=== PATIENT | female | born 1950 | race Caucasian/White ===

== ENCOUNTER → 2017-10-31 08:10 | Outpatient (CLI) | payer MEDICARE, SELFPAY ==
[2017-10-31 08:18] LABS: Mucous, Urine 0 SEEN /hpf (<or=2+); Red Blood Cells-Urine 0 SEEN /hpf (0-5)
[2017-10-31 08:45] LABS: Absolute Lymphocyte Count 2.76 X10^3/ul (0.83-4.51); Absolute Neutrophil Count 3.6 X10^3/uL (2.0-7.7); Basophil% 1.3 % (0-1); Eosinophil# 0.49 X10^3/uL; Eosinophils% 6.5 % (0-5); Hematocrit 33.3 % (37-47); Hemoglobin 10.4 g/dl (12.0-15.0); Lymphocyte # 2.76 X10^3/ul (4.0); Lymphocyte % 36.8 % (19-41); Mean Corp Hgb Conc 31.2 g/gl (32-36); Mean Corpuscular Hgb 27.7 pg (27.0-32.0); Mean Corpuscular Volume 88.6 fL (81-99); Mean Platelet Vol. 10.1 fl (6.2-12.0); Monocyte% 6.7 % (0-10); Neutrophil # 3.64 X10^3/uL (2.7-7.7); Neutrophil % 48.4 % (47-70); POSITIVE COUNT NO; POSITIVE DIFFERENTIAL NO; POSITIVE MORPHOLOGY NO; Platelet Count 374 K/mm3 (150-450); RBC Distribution Width SD 54.9 fl (35.1-43.9); Red Blood Count 3.76 M/mm3 (4.2-5.4); White Blood Count 7.5 K/mm3 (4.4-11.0)
[2017-10-31 09:19] LABS: ALB/GLOB Ratio 0.7 RATIO (0.9-2.4); AST(SGOT) 30 U/L (15-37); Alanine Aminotransfer ALT/SGPT 29 U/L (13-56); Albumin, Serum 3.4 g/dL (3.2-5.0); Alkaline Phosphatase 88 U/L (45-117); Anion Gap 8 (5-15); BUN 15 mg/dL (7-18); BUN/Creat Ratio 15.6 RATIO (10-20); Calcium,Total 8.7 mg/dL (8.5-10.1); Chloride 106 mmol/L (98-107); Cholesterol 196 mg/dL (200); Creatinine, Serum 0.96 mg/dL (0.55-1.02); EST Glomerular Filtration Rate 61 mL/min (>60); Est Glom Filt Rate - Afr Amer 74 mL/min (>60); Globulin 4.6 g/dL (2.2-4.2); Glucose 101 mg/dL (74-106); High Density Lipoprotein 58 mg/dL; Potassium 4.1 mmol/L (3.5-5.1); Sodium Level 139 mmol/L (136-145); Thyroid Stim Hormone (TSH) 1.77 uIU/mL (0.358-3.74); Triglycerides 168 mg/dL; Very Low Density Lipoprotein 34 mg/dL (5-40)
[2017-10-31 11:44] LABS: Color, Urine Yellow (Yellow); Glucose, Dipstick Normal (Normal); Ketone-Dipstick Negative (Negative); Leukocyte Esterase-Dipstick 100 /ul (Negative); Nitrite-Dipstick Negative (Negative); Occult Blood-Urine Negative /ul (Negative); Protein-Dipstick Negative (Negative); Urine Bilirubin Dipstick Negative (Negative); Urine Clarity Sl. Cloudy (Clear); Urine Urobilinogen Normal (Normal)
[2017-10-31 11:53] LABS: Bacteria 1+ /hpf (None Seen); Squamous Epithelial Cells - UA 0-5 SEEN /hpf (5-10); White Blood Cells 10-25 SEEN /hpf (0-5)
[2017-10-31 12:07] LABS: Microalbumin,Random Urine 9.9 mg/L (NO RANGE EST.); Microalbumin:Creatinine Ratio 6.2 mg/g CRE (<30 mg/g CRE)
[2017-11-01 08:12] LABS: Vitamin D,25 Hydroxy 18.3 ng/mL (29.95-100.01)
== END ==
PROVIDERS: Family Provider Internal Medicine; PCP Internal Medicine; Visit Provider Internal Medicine
DX: I10 Essential (primary) hypertension (principal); E78.2 Mixed hyperlipidemia; E55.9 Vitamin D deficiency, unspecified
CPT/HCPCS: 36415; 80053; 80061; 81001; 82043; 82306; 82570; 84443; 85025

== ENCOUNTER → 2017-12-06 10:38 | Outpatient (CLI) | payer MEDICARE, SELFPAY | PROVIDERS: Family Provider Internal Medicine; PCP Internal Medicine; Visit Provider Obstetrics & Gynecology | DX: Z12.31 Encounter for screening mammogram for malignant neoplasm of breast (principal) | CPT/HCPCS: 77063; 77067 ==

== ENCOUNTER 2018-03-03 10:37 | Emergency (ER) | payer MEDICARE, SELFPAY ==
[2018-03-03 10:39] VITALS: BP 149/93; PULSE 88; RESP 16; TEMP 36.3; O2SAT 97; BMI 32.8
--- NOTE | 2018-03-03 10:48 | CT_ITS ---
STUDY: CT LUMBAR SPINE WITHOUT CONTRAST REASON FOR EXAM: Female, 67 years old. Low back pain and lower extremity pain. History of stage IV lung cancer. RADIATION DOSAGE (If Supplied By Facility): CTDIvol = ( 17.07 ) mGy, DLP = ( 606.85 ) mGycm TECHNIQUE: The patient was scanned in a multi detector CT scanner. High resolution transaxial imaging was performed. Images were obtained from L1 to S1 level. Sagittal and coronal images were reconstructed. Individualized dose optimization techniques were used for this CT. COMPARISON: None FINDINGS: Normal lumbar lordosis. There is no substantial scoliosis. Normal vertebrae of the lumbar spine. L1-2: Normal endplates. Normal disc height and morphology. Normal bilateral facet joints. Normal central canal and bilateral lateral recesses. Normal bilateral intervertebral neural foramina. L2-3: Normal endplates. Normal disc height and morphology. Normal bilateral facet joints. Normal central canal and bilateral lateral recesses. Normal bilateral intervertebral neural foramina. L3-4: Minimal degree of diffuse posterior disc bulge. Mild spondylosis. L4-5: Minimal anterior listhesis of L4 on L5. Facet joint osteoarthritis and hypertrophy. Mild degree of central spinal stenosis. L5-S1: Facet joint osteoarthritis and hypertrophy. Mild anterior spondylosis. Atherosclerotic calcification of the aorta. There is a 2.8 cm x 3.1 cm cyst in the left ovary. CT/Spine Lumbar without Contrast IMPRESSION: Multilevel degenerative changes, as described above. Mild degree of central spinal stenosis at the L4-L5 level due to the anterolisthesis and diffuse posterior disc bulge. Left ovarian cyst. Electronically Signed: Riccardo Vazquez MD at 12:35 EST Tel [phone], Service support ,
--- NOTE | 2018-03-03 13:12 | ED.VISSUMM ---
- ER Visit Summary Date of Service: 03/03/18 Chief Complaint: Back pain History of Present Illness: The patient is a 67 F presenting for evaluation secondary back pain. Patient states that over the course the last 5 days she has had an onset of lower back pain. She reports that it radiates down right leg. She denies any numbness or weakness. She denies any bowel or bladder incontinence. Patient does state that she has had a fever within the last week, but has not had any other infectious signs or symptoms recently. No recent injections or surgeries. Patient has a history of non-small cell lung cancer that currently is undergoing treatment, and her oncologist recommended that she come to emergency department for evaluation. Physical Examination: Vitals: Within normal limits General: Well-nourished well-developed no acute distress Head: Normocephalic atraumatic ENT: Moist mucous membranes Neck: Supple no JVD Cardiovascular: Heart regular rate and rhythm no murmurs Respiratory: Respirations nondistressed, lung sounds clear to auscultation bilaterally Abdominal: Soft, nontender, nondistended, normal bowel sounds, no evidence of abdominal masses or pulsatile mass Back: Normal to inspection, no midline tenderness to palpation, straight leg raise negative bilaterally Extremities: Nontender, nonedematous, 2+ radial and PT pulses bilaterally symmetric Skin: Normal color no rash Neuro: 5/5 strength hip flexion, knee flexion, knee extension, dorsiflexion, plantarflexion, EHL. Sensation intact over all dermatomes of the lower extremities bilaterally, 2+ patellar and Achilles reflexes bilaterally symmetric, negative clonus bilaterally Test Results: CT lumbar spine shows anterolisthesis at L4-L5 with disc bulging and some central canal stenosis Emergency Department Course and Treatment: Patient presented with back pain. She has a normal neurologic exam do not believe that MRI is indicated, but given her cancer history I do believe that CT is appropriate. CT shows no evidence of malignancy. Patient was given a dose of kenalog due to borderline diabetes. Patient currently has no red flag signs and symptoms. She will continue taking Tylenol for pain control and will follow up with primary care. Disposition: Discharge Impression: 1. Lumbar radiculopathy secondary to L4-L5 anterolisthesis with disc bulge This note was generated with [email or web address] dictation software. It may contain incorrect words, spelling, and punctuation that were not noted in review of the chart prior to signing ED Disposition - Plan for ED Patient: Disposition: Home or Assisted Living Chief Complaint: Back Diagnosis: Lumbar radicular pain Instructions: ED Sciatica Referrals: Katie Fernández DO [Primary Care Provider] - As Needed
[2018-03-03] MEDS: Triamcinolone Acetonide 40 MG/ML Vial IM (13:18)
== END 2018-03-03 13:27 | disposition home or self-care (01) ==
PROVIDERS: Emergency Provider Emergency Medicine; Family Provider Internal Medicine; PCP Internal Medicine
DX: M51.16 Intervertebral disc disorders with radiculopathy, lumbar region (principal); M43.16 Spondylolisthesis, lumbar region; C34.90 Malignant neoplasm of unspecified part of unspecified bronchus or lung; R73.09 Other abnormal glucose; Z79.84 Long term (current) use of oral hypoglycemic drugs; Z79.899 Other long term (current) drug therapy
CPT/HCPCS: 72131; 96372; 99282

== ENCOUNTER 2018-03-26 10:30 | Outpatient (RCR) | payer MEDICARE, SELFPAY ==
--- NOTE | 2018-03-11 17:32 | HP.PTEVAL ---
Patient's Visit Information LISETTE CRISOSTOMO is a 67 year old F referred to Physical Therapy by Concha Ford NP with a diagnosis of LBP, Sciatica. Date of Evaluation: 03/11/18 Physical Therapist: Iesha Starr - Visit Plan Frequency: 2x /Week Duration: 4-6 Weeks Plan: +++PT HAS ACTIVE LUNG AND THYROID CANCER++++. 2X/ week for 4 weeks- 6 weeks for trial of core stability and hip strength, postural exercises and possibly MT to R sided paraspinals. If land based therapy does not work, possible trail of AT - Subjective Findings: Pt reports that she does not know what she did. This started about 3 weeks ago. She went to hospital and did get a catcan that showed arthritis and bulging disc. Did get a cortizone shot and she has pain across LB ( no longer pain in B legs) and has pain in B shoulders. Pt has stage 4 small cell lung cancer. She has cancer in her thyroid as well. It is not cancer in her back. 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 They are watching the thyroid as well. She exercises several days a week. She goes to the [facility] and does chair yoga and strength and cardio. Has not been to either in a week and half. She did have a cough and not sure if she coughed too hard and hurt something. The cortizine shot took 2 days and for the most part she feels pretty good. Pt now complaining of pain since this morning of pain that radiates to the front of her ribs...she will call oncologist today about it. - Pain LBP Pain Intensity (Out of 10): 1 Pain Intensity Range: 4 Comment: since the cortizone - Objective Gait: walks with normal gait pattern with a little less trunk rotation. Trunk AROM: flex 50%, Ext 50% R SB 75 and L 50%. LE MMT: B hip flex 4/5, B hip abd 4/5, B hip extension 3-/5, B knee flex and knee ext 4/5. Palpation: very tight mid traps, extremely tender around R PSIS and surrounding musculature worse on the R compared to the L. Prone on elbows X2 min----no increase in pain ....more stretching. Press ups X8 no increase in back pain but weakness in arms prevents her from doing more - Goals Goal 1:: I HEP Goal Time Frame: 4-6 Weeks Goal 2:: Increase core and LE strength by 1/2 muscle grade (LE MMT: B hip flex 4/5, B hip abd 4/5, B hip extension 3-/5, B knee flex and knee ext 4/5) Goal Time Frame: 4-6 Weeks Goal 3:: Decrease back pain to 2/10 with ADL's - Rehabilitation Potential Rehabilitation Potential: Good - Anticipated Interventions Patient/Client Instruction: Educate patient on: Plan of Care For the Purpose of:: To decrease pain, To increase ROM, To improve nutrient delivery to tissue, To improve muscle performance and motor function, To improve ability to perform ADL's, To increase tolerance to activity/condition/position, To improve gait and locomotor functions, To improve health of tissue, To increase flexibility/ROM Therapeutic Exercise to Include: Strength training, Body mechanics, Postural training, Active ROM, Dynamic Lumbar Stabilization, Fernandez Exercises For the Purpose of:: To decrease pain, To increase ROM, To improve nutrient delivery to tissue, To improve muscle performance and motor function, To improve ability to perform ADL's, To increase tolerance to activity/condition/position Manual Therapy Techniques to Include: Soft tissue mobilization For the Purpose of:: To increase flexibility/ROM Thank you for the opportunity to evaluate your patient. For Medicare and Medicare HMO plans, please review the plan of care and approve it. It will need to be FAXED BACK to us at [phone] for Medicare purposes. For Medicare only, by signing this I certify the plan of care. Please let me know if there are questions or concerns regarding this plan of care. Physician Signature: Date:
--- NOTE | 2018-03-26 12:03 | HP.PTDCSUM ---
HP - PT D/C Summary It has been my pleasure to treat LISETTE CRISOSTOMO under orders from Concha Ford NP, for the diagnosis of LBP, Sciatica for a total of 5 visit(s). Discharge Date: 03/26/18 Please see the following information for a summary of their discharge status. - Subjective Subjective: Pt reports that she is cancer free at this point and sees Dr in 3 months. Pt - Pain LBP Pain Intensity (Out of 10): 0 - Overall Improvement % Improvement: 95 - Objective Objective/Function: Pt still complains of hip burning with clam shells... but a good burn. LE MMT: B hip flex 4/5, B hip abd 4/5, B hip extension 3+/5, B knee flex and knee ext 4/5 - Goals Goal 1:: I HEP Goal Progress: Goal Met Goal 2:: Increase core and LE strength by 1/2 muscle grade (LE MMT: B hip flex 4/5, B hip abd 4/5, B hip extension 3-/5, B knee flex and knee ext 4/5) Goal Progress: Progressing Goal 3:: Decrease back pain to 2/10 with ADL's Goal Progress: Goal Met - Plan Plan: DC PT to HEP - D/C Information Discharge Comments: DC PT to HEP If there are questions or concerns regarding this patient's physical therapy, please feel free to call me at [phone]. Thank you for the referral of this patient. Sincerely, Iesha Starr
--- OUTSIDE RECORDS SUMMARY | 2018-05-07 02:04 | XMS RPT_ITS | Continuity of Care Document ---
:1950 Author Organization [facility] Address [facility]7 [facility] [address] [place] [address] Phone Care Team Providers Name Role Phone Katie Fernández DO Unavailable Lars Santos Unavailable Divine SALVADOR, George Boyd Unavailable Dr. Tanner Jamil Unavailable Marina Weaver Unavailable Unavailable Long EBAY RESELLER, Isabella L Unavailable Unavailable Ciesa STORE PROTECTION SPECIALIST, Jillian Unavailable Unavailable Unavailable Problems Name Dates Details Abnormal CAT scan (R93.89, 793.99) Status: Active Adenocarcinoma of lung (C34.90, 162.9) Status: Active Allergic eosinophilia (D72.1, 288.3) Comments: counts stable Status: Active Allergic rhinitis (J30.9, 477.9) Status: Active Anemia, unspecified (Renamed from Anemia) (D64.9, 285.9) Comments: she never did lab w/u ordered in 03/01 so will do today--- see grad decline from 2017-- 11.9-- 11.0-- now 10.3consults in chart with light chain abn with heme in past -- with anemia progressijng needs r e-eval adn with worsein anemia needs scope in general-- pt refusing scope at this time so will do cologard and see heme Status: Active Arthralgia (M25.50, 719.40) Status: Active Benign essential hypertension (I10, 401.1) Status: Active BMI 34.0-34.9,adult (Z68.34, V85.34) Status: Active Body mass index 27.0-27.9, adult (Z68.27, V85.23) Status: Active breast bx- benign Status: Active Cholecystectomy (Gall Bladder Removal) Status: Active Colon Polyps, History of (V12.72) Comments: scope- 04/20- negative Status: Active Controlled diabetes mellitus type II without complication (E11.9, 250.00) Comments: HBA1c 5.6(05/01)HBA1c 5.8( (12/29)eye exam: [facility], 01/27.FBS: does not check at home, usualy in 120Eye exam : 01/28, [facility] Status: Active Cough (R05, 786.2) Comments: ? cold turn bronchitis, has lung cancer and Copd adding Z pack, delsym, and to use inhalerCold beginning november, no antibiotic. Lingering cough, occasional yellow, better now.No temeprtaure, sinus aches, earaches, runny nsoe Status: Active Deliveries (Parity) Comments: 2 Status: Active Eczema, allergic (L23.9, 692.9) Status: Active Elevated serum globulin level (R77.1, 790.99) Comments: keep appt with dr Mercedes in september for fu Status: Active Encounter for annual general medical examination with abnormal findings in adult (Z00.01, V70.0) Status: Active Encounter for screening for malignant neoplasm of colon (Renamed from Special screening for malignant neoplasms, colon) (Z12.11, V76.51) Status: Active Encounter for screening for malignant neoplasm of colon (Renamed from Special screening for malignant neoplasms, colon) (Z12.11, V76.51) Comments: last scope 01/28 - ordered cologard 06/29 Status: Active Encounter for screening for malignant neoplasm of rectum (Z12.12, V76.41) Status: Active Encounter for screening mammogram for breast cancer (Renamed from Encounter for screening mammogram for malignant neoplasm of breast) (Z12.31, V76.12) Comments: dr Hilario orders adn rev-- not due till november 2016 Status: Active Gastroesophageal reflux disease without esophagitis (K21.9, 530.81) Comments: working on weaning off - her desire so will do qod to start Status: Active Gout, arthritis (M10.9, 274.00) Comments: clinically stable Status: Active Grieving (F43.21, 309.0) Comments: going to look into grieving support counseling- pt declined meds discussed Status: Active H/O bone density study (Z92.89, V15.89) Comments: Osteopenia per pt, Dr yanelis devries, last BD 2013??Needs orders done for front staff. 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 unknown primary site (C79.89, 198.89) Comments: from lung Status: Active Mixed hyperlipidemia (E78.2, 272.2) Comments: takes simvastatin qod - if takes qd gets muscle aches Status: Active mole Comments: very typical area-- follow for changes which we discussed Status: Active Monoclonal gammopathy (D47.2, 273.1) Status: Active Neck pain, acute (M54.2, 723.1) Status: Active Need for Tdap vaccination (Renamed from Need for gcplekmkzr-perfovo-hcaawgufk (Tdap) vaccine, adult/adolescent) (Z23, V06.1) Status: Active Non-smoker (Z78.9, V49.89) Status: Active Nonsquamous nonsmall cell neoplasm of lung, 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, 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) Comments: ccf being treated with gene therapy - found the [email or web address] cat scan neck/chest/abdomen q3mo and brain scan once yr Status: Active Nutritional counseling (Z71.3, V65.3) Status: Active Polyp, colonic (K63.5, 211.3) Comments: Hyperplastic polyp, 01/27, [facility], repeat 02/01(5 years) Status: Active Postmenopausal (Renamed from Postmenopausal status) (Z78.0, V49.81) Comments: dr hilario orders and rev Status: Active POSTMENOPAUSAL STATE Status: Active Post-nasal drainage (R09.82, 473.9) Status: Active Pregnancies () Comments: 2 Status: Active screen Status: Active sinus tachycardia Status: Active Small cell carcinoma (C80.1, 199.1) Comments: on Arencia Status: Active Smoker (F17.200, 305.1) Comments: [facility] quit 3 yrs agoWorried about gaining weight Status: Active Sore throat (J02.9, 462) Status: Active Tonsillectomy Status: Active Unspecified Diagnosis Status: Active Varicose veins of legs (I83.93, 454.9) Status: Active Vitamin D deficiency (E55.9, 268.9) Comments: with K2 -- 5k daily Status: Active Vitamin D deficiency (E55.9, 268.9) Status: Active Medications Name Dates Details Alecensa 150 MG Oral Capsule 2 (two) Capsule Capsule bid for 0 days Quantity: 60 {Capsule} Refills: 0 Ordered:12-Dec-2017 Marina Weaver Start : 06-Nov-2017 Active Comments:from cancer doctor lifetime [place] Allergy 180 MG Oral Tablet daily (180 MG) Active Glucophage XR 500 MG Oral Tablet Extended Release 24 Hour 3 (three) Tablet ER 24HR qd for 90 days Quantity: 270 {Tablet} Refills: 3 Ordered:31-May-2017 Eileen Fernández DO, DO, Kathleen Start : 31-May-2017 Active Comments:generic Metoprolol Succinate ER 25 MG Oral Tablet Extended Release 24 Hour 1 (one) Tablet qd for 90 days Quantity: 90 {Tablet} Refills: 3 Ordered:26-Dec-2017 Eileen Fernández DO, DO, Kathleen Start : 26-Dec-2017 Active ONETOUCH ULTRA (Device) test strips Device bid for 30 days Quantity: 100 {Device} Refills: 3 Ordered:14-Dec-2014 Jewell Coffman DO Start : 14-Dec-2014 Active OneTouch Ultra Blue In Vitro Strip 1 (one) Strip Strip qd for 30 days Quantity: 50 {Strip} Refills: 11 Ordered:27-Dec-2015 Kayla Castro Start : 27-Dec-2015 Active Simvastatin 10 MG Oral Tablet 1 (one) Tablet qhs for 90 days Quantity: 90 {Tablet} Refills: 3 Ordered:23-Dec-2017 Jolene VANCE Katie Arellano DO Start : 23-Dec-2017 Active Zithromax Z-Cj 250 MG Oral Tablet 1 (one) Tablet TAD for 0 days Quantity: 1 {Package} Refills: 0 Ordered:28-Feb-2018 Concha Ford CNP Start : 28-Feb-2018 Active Amoxicillin-Pot Clavulanate 875-125 MG Oral Tablet 1 (one) Tablet bid for 0 days Quantity: 14 {Tablet} Refills: 0 Ordered:20-Aug-2016 Rosalie Yu LPN Start : 08-Aug-2016 End : 20-Aug-2016 Inactive FLEXERIL, 10MG (Oral Tablet) 1 (one) Tablet qhs prn for 0 days Quantity: 30 {Tablet} Refills: 0 Ordered:17-Aug-2009 America Molina Start : 12-May-2009 Inactive Hydrocortisone Valerate 0.2 % External Cream 1 (one) Cream Cream apply qd for 0 days Quantity: 30 {Gram} Refills: 3 Ordered:17-Feb-2018 Isabella Ochoa LPN Start : 06-Nov-2017 End : 17-Feb-2018 Inactive NIASPAN, 500MG (Oral Tablet Extended Release) 1 (one) Tablet ER qd for 0 days Quantity: 30 {Tablet_ER} Refills: 3 Ordered:17-Aug-2009 America Molina Start : 17-Mar-2008 Inactive Nystatin 636515 UNIT/ML Mouth/Throat Suspension 5 cc cc 5times a day swish and swallow for 0 days Quantity: 250 {Milliliter} Refills: 0 Ordered:14-Mar-2017 Rosalie Yu LPN Start : 20-Aug-2016 End : 14-Mar-2017 Inactive PREDNISOLONE, 15MG/5ML (Oral Syrup) Syrup for 0 days Refills: 0 Ordered:17-Aug-2009 America Molina Start : 10-May-2008 Inactive Comments:7.5 ml qd for 10days with food PRILOSEC OTC, 20MG (Oral Tablet Delayed Release) 1 tab qd for 0 days Refills: 0 Ordered:17-Aug-2009 Manasa Molina TYLENOL PM EXTRA STRENGTH, 500-25MG (Oral Tablet) 1/2 tab q hs for 0 days Refills: 0 Ordered:17-Aug-2009 Manasa Molina Vitamin D3 43214 UNIT Oral Capsule 1 (one) Capsule once a week for 60 days Quantity: 8 {Capsule} Refills: 0 Ordered:19-Apr-2016 Олег Santos MD Start : 19-Apr-2016 End : 18-Jun-2016 Inactive Vitamin K2-Vitamin D3 45-2000 MCG-UNIT Oral Capsule daily (45-2000 MCG-UNIT) Inactive ZOSTAVAX, 02228TBP/0.65ML (Subcutaneous Solution Reconstituted) 1 (one) For Solution one time dose for 0 days Quantity: 1 {For_Solution} Refills: 0 Ordered:22-Oct-2012 America Molina Start : 16-Jan-2012 End : 22-Oct-2012 Inactive Comments:Bring to doctors office immediately to receive injection unless you receive it at the pharmacy. ASPIRIN BUF(DITVH-MHGVM-TJMWF), 81MG (Oral Tablet Delayed Release) 1 (one) Tablet DR Daily for 0 days Refills: 0 Ordered:03-Jul-2006 America Molina Start : 03-Jul-2006 End : 20-Aug-2007 Discontinued ATENOLOL, 25MG (Oral Tablet) 1 (one) Tablet q am for 0 days Quantity: 30 {Tablet} Refills: 3 Ordered:20-Aug-2007 Jewell Coffman DO Start : 20-Aug-2007 End : 20-Aug-2007 Discontinued Bystolic 5 MG Oral Tablet 1 (one) Tablet qd for 0 days Quantity: 90 {Tablet} Refills: 3 Ordered:12-Dec-2017 Marina Weaver Start : 14-Mar-2017 End : 12-Dec-2017 Discontinued CALCIUM + D, 568-083EP-CMQK (Oral Tablet) 1 tab qd for 0 days Refills: 0 Ordered:12-Dec-2017 Marina Weaver End : 12-Dec-2017 Discontinued Comments:This order discontinued per [employer]. CELEBREX, 100MG (Oral Capsule) 1 (one) Capsule Capsule bid for 0 days Quantity: 60 {Capsule} Refills: 0 Ordered:09-Sep-2015 America Molina Start : 06-Jul-2013 End : 09-Sep-2015 Discontinued Comments:take with food COLCRYS, 0.6MG (Oral Tablet) 1 Tablet 2 tablets then repeat in 1 hour 1 tablet. for 0 days Quantity: 6 {Tablet} Refills: 0 Ordered:25-Mar-2013 Augustus VANCEBaomichoacano Ríos Start : 25-Mar-2013 End : 25-Mar-2013 Discontinued LEVAQUIN, 500MG (Oral Tablet) 1 (one) Tablet Daily for 0 days Quantity: 14 {Tablet} Refills: 0 Ordered:13-Feb-2006 Oral Serenity Start : 13-Feb-2006 End : 26-Mar-2006 Discontinued Omeprazole 20 MG Oral Capsule Delayed Release 1 (one) Capsule DR qd for 90 days Quantity: 90 {Capsule} Refills: 3 Ordered:12-Dec-2017 Marina Weaver Start : 04-Mar-2017 End : 12-Dec-2017 Discontinued PROTONIX, 40MG (Oral Tablet Delayed Release) [address] BID for 0 days Refills: 0 Ordered:15-Dec-2007 Augustus VANCEJewell Start : 20-Aug-2007 End : 12-Dec-2007 Discontinued Comments:increase to BID until seen again. SIMVASTATIN, 40MG (Oral Tablet) 1 (one) Tablet qhs for 0 days Quantity: 30 {Tablet} Refills: 3 Ordered:16-Jan-2012 Augustus VANCEBaoa Michoacano Start : 16-Jan-2012 End : 16-Jan-2012 Discontinued TiZANidine HCl 4 MG Oral Tablet 1 (one) Tablet qhs prn for 0 days Quantity: 30 {Tablet} Refills: 0 Ordered:12-Dec-2017 Marina Weaver Start : 08-Nov-2017 End : 12-Dec-2017 Discontinued TOPICORT, 0.25% (External Cream) 1 Cream bid for 0 days Quantity: 60 {Cream} Refills: 1 Ordered:25-Mar-2013 Augustus VNACEJewell Start : 25-Mar-2013 End : 25-Mar-2013 Discontinued TRICOR, 54MG (Oral Tablet) 1 (one) Tablet qd for 0 days Quantity: 30 {Tablet} Refills: 3 Ordered:20-Aug-2007 America Molina Start : 20-Aug-2007 End : 12-Dec-2007 Discontinued TRILIPIX, 135MG (Oral Capsule Delayed Release) 1 (one) Capsule DR daily for 0 days Quantity: 30 {Capsule} Refills: 3 Ordered:09-Sep-2015 NeetuAmerica harrington Start : 06-Oct-2013 End : 09-Sep-2015 Discontinued Comments:generic, generic, generic Zoloft 50 MG Oral Tablet 1 (one) Tablet daily for 30 days Quantity: 30 {Tablet} Refills: 3 Ordered:12-Dec-2017 OwenMarina Start : 30-Aug-2017 End : 12-Dec-2017 Discontinued Comments:FOREST Allergies and Adverse Reactions Name Dates Details Codeine/Codeine Derivatives (Allergy) Status: Active Comments: HIPER TRICOR, 54MG (Oral Tablet) (Allergy) Status: Active Comments: myalgias Trilipix *ANTIHYPERLIPIDEMICS* (Allergy) Status: Active Comments: muscle and joint pain, numbness in hands Past Medical History Name Dates Details Abdominal pain, unspecified abdominal location (789.00) Status: Resolved as of 17-Mar-2008 Abnormal finding of blood chemistry, unspecified (R79.9, 790.6) Comments: went to [facility] and got achey and elevated liver function Status: Inactive as of 08-Aug-2016 Abnormal glucose tolerance test (R73.02, 790.22) Status: Inactive as of 12-May-2009 BMI 28.0-28.9,adult (Z68.28, V85.24) Status: Inactive as of 04-Sep-2016 BMI 29.0-29.9,adult (Z68.29, V85.25) Status: Inactive as of 04-Sep-2016 BMI 31.0-31.9,adult (Z68.31, V85.31) Status: Inactive as of 17-Feb-2018 BMI 33.0-33.9,adult (Z68.33, V85.33) Status: Inactive as of 17-Feb-2018 Chest pain (R07.9, 786.59) Status: Resolved as of 23-Sep-2008 contact dermatitis Status: Resolved as of 22-Sep-2008 Cramp of both lower extremities (R25.2, 729.82) Comments: stretching , hydrate and lytes rev an dok -- if need can add mag later -- also wear support stockigns Status: Resolved as of 14-Mar-2017 Dermatitis (L30.9, 692.9) Status: Resolved as of 04-Apr-2011 Elevated blood-pressure reading without diagnosis of hypertension (R03.0, 796.2) Status: Inactive as of 28-Dec-2009 Encounter for immunization (Z23, V03.89) Status: Inactive as of 07-Dec-2013 Epigastric pain (R10.13, 789.06) Status: Inactive as of 12-May-2009 Foot pain (M79.673, 729.5) Comments: think gout and talk about what is. no on meds to cuase. no steriod with Dm will try colchicine then horace check uric acid Status: Inactive as of 19-Apr-2016 Gout (M10.9, 274.9) Comments: she wants to hold on daily prevention- we discussed diet and fluid changes and risk associated withnot treating Status: Inactive as of 19-Jul-2016 Headache (R51, 784.0) Comments: mild and she hasnt paid attn to much- she should docuent time and relations and call in so we can delineate what more testing to do Status: Resolved as of 17-Aug-2009 Hypoglycemia (E16.2, 251.2) Status: Inactive as of 19-Apr-2016 Left hip pain (M25.552, 719.45) Comments: better with pt Status: Inactive as of 19-Jul-2016 Low back pain (M54.5, 724.2) Status: Inactive as of 19-Jul-2016 Need for prophylactic vaccination and inoculation against influenza (Z23, V04.81) Status: Inactive as of 07-Dec-2013 OTHER SYMPTOMS INVOLVING ABDOMEN AND PELVIS, ABDOMINAL PAIN, RIGHT LOWER QUADRANT (789.03) Status: Resolved as of 04-Apr-2011 Palpitations (R00.2, 785.1) Status: Inactive as of 19-Apr-2016 Pneumococcal vaccination administered during current admission (Z23, V03.82) Status: Inactive as of 07-Dec-2013 Pneumonia, organism unspecified (J18.9, 486) Comments: seems like should be able to treat as outpt and do well Status: Resolved as of 22-Sep-2008 skin check Status: Inactive as of 07-Dec-2013 SOB (shortness of breath) on exertion (R06.02, 786.05) Status: Resolved as of 12-May-2009 Spasm of cervical paraspinous muscle (M62.838, 728.85) Status: Inactive as of 19-Jul-2016 Symptomatic tachycardia (R00.0, 785.0) Status: Inactive as of 19-Apr-2016 Thrush (B37.0, 112.0) Status: Resolved as of 14-Mar-2017 Wrist pain (M25.539, 719.43) Comments: uses rt hand for typing Status: Inactive as of 19-Apr-2016 Procedures Procedure Dates Details [place] ([address]) Date: 16-Jan-2012 Cancelled Colonoscopy, Screening Completed Jan-2015 Comments: benign polyp removed Date Value Details 12-Mar-2018 Inital Evaluation (1) - PT Result: Comments: See Note; NOTES: [facility] Physical Therapy [facility] [facility] [place], [place] [address] Fax REHABILITATION SERVICES INITIAL EVALUATION MR#: [id number] Acct: [id number] Name: LISETTE CRISOSTOMO Rep #: [id number] : 1950 67 From: Iesha Starr MPT Referring Dr.: Concha Ford NP Status: REG RCR [facility] Patient's Visit Information LISETTE CRISOSTOMO is a 67 year old F referred to Physical Therapy by Concha Ford NP with a diagnosis of LBP, Sciatica. Date of Evaluation: 03/11/18 Physi kel Therapist: Iesha Starr - Visit Plan Frequency: 2x /Week Duration: 4-6 Weeks Plan: +++PT HAS ACTIVE LUNG AND THYROID CANCER++++. 2X/ week for 4 weeks- 6 weeks for trial of core stability and hip strength, postural exercises and possibly MT to R sided paraspinals. If land based therapy does not work, possible trail of AT - Subjective Findings: Pt reports that she does not know what she did. Thi s started about 3 weeks ago. She went to hospital and did get a catcan that showed arthritis and bulging disc. Did get a cortizone shot and she has pain across LB ( no longer pain in B legs) and has kamar n in B shoulders. Pt has stage 4 small cell lung cancer. She has cancer in her thyroid as well. It is not cancer in her back. She has a specific gene and takes pills to turn off the cancer and she was d iagnosed about 1.5 years ago. They are watching the thyroid as well. She exercises several days a week. She goes to the [facility] and does chair yoga and strength and cardio. Has not been to either in a week and half. She did have a cough and not sure if she coughed too hard and hurt something. The cortizine shot took 2 days and for the most part she feels pretty good. Pt now complaining of pain since this morning of pain that radiates to the front of her ribs...she will call oncologist today about it. - Pain LBP Pain Intensity (Out of 10): 1 Pain Intensity Range: 4 Comment: since the cortizone - Ob jective Gait: walks with normal gait pattern with a little less trunk rotation. Trunk AROM: flex 50%, Ext 50% R SB 75 and L 50%. LE MMT: B hip flex 4/5, B hip abd 4/5, B hip extension 3-/5, B knee flex and knee ext 4/5. Palpation: very tight mid traps, extremely tender around R PSIS and surrounding musculature worse on the R compared to the L. Prone on elbows X2 min----no increase in pain ....more str etching. Press ups X8 no increase in back pain but weakness in arms prevents her from doing more - Goals Goal 1:: I HEP Goal Time Frame: 4-6 Weeks Goal 2:: Increase core and LE strength by 1/2 muscle g rade (LE MMT: B hip flex 4/5, B hip abd 4/5, B hip extension 3-/5, B knee flex and knee ext 4/5) Goal Time Frame: 4-6 Weeks Goal 3:: Decrease back pain to 2/10 with ADL's - Rehabilitation Potential Lilian abilitation Potential: Good - Anticipated Interventions Patient/Client Instruction: Educate patient on: Plan of Care For the Purpose of:: To decrease pain, To increase ROM, To improve nutrient delivery to tissue, To improve muscle performance and motor function, To improve ability to perform ADL's, To increase tolerance to activity/condition/position, To improve gait and locomotor functions, To impro ve health of tissue, To increase flexibility/ROM Therapeutic Exercise to Include: Strength training, Body mechanics, Postural training, Active ROM, Dynamic Lumbar Stabilization, Fernandez Exercises For t he Purpose of:: To decrease pain, To increase ROM, To improve nutrient delivery to tissue, To improve muscle performance and motor function, To improve ability to perform ADL's, To increase tolerance to activity/condition/position Manual Therapy Techniques to Include: Soft tissue mobilization For the Purpose of:: To increase flexibility/ROM Thank you for the opportunity to evaluate your patient. For Medicare and Medicare HMO plans, please review the plan of care and approve it. It will need to be FAXED BACK to us at [phone] for Medicare purposes. For Medicare only, by signing this I certif y the plan of care. Please let me know if there are questions or concerns regarding this plan of care. Physician Signature: Date: &#6 0;Electronically signed by Iesha Starr MPT> 03/12/18 192 CC: Concha Ford DIRECTOR REGULATORY COMPLIANCE; Katie Fernández DO Signed 03-Mar-2018 Emergency Department Summary Result: Comments: See Note; NOTES: [facility] Medical Records Department [address] [place] [address] Emergency Department Summary 03/03/18 1312 MR#: [id number] Acct: [id number] Name: LISETTE CRISOSTOMO Lizz Rep #: [id number] : 1950 67 From: Woody Alvarado MD PCP: Katie Fernández DO Status: DEP ER - ER Visit Summary Date of Service: 03/03/18 Chief Complaint: Back pain History of Present Illness: The patient is a 67 F presenting for evaluation secondary back pain. Patient states that over the course the last 5 days she has had an onset of lower back pain. She reports that it radiates down right leg. She denies any numbness or weakness. She denies any bowel or bladder incontinence. Patient does state that she has had a fever within the last week, but has not had any other in fectious signs or symptoms recently. No recent injections or surgeries. Patient has a history of non-small cell lung cancer that currently is undergoing treatment, and her oncologist recommended that sh e come to emergency department for evaluation. Physical Examination: Vitals: Within normal limits General: Well-nourished well-developed no acute distress Head: Normocephalic atraumatic ENT: Moist muco us membranes Neck: Supple no JVD Cardiovascular: Heart regular rate and rhythm no murmurs Respiratory: Respirations nondistressed, lung sounds clear to auscultation bilaterally Abdominal: Soft, nontende r, nondistended, normal bowel sounds, no evidence of abdominal masses or pulsatile mass Back: Normal to inspection, no midline tenderness to palpation, straight leg raise negative bilaterally Extremitie s: Nontender, nonedematous, 2+ radial and PT pulses bilaterally symmetric Skin: Normal color no rash Neuro: 5/5 strength hip flexion, knee flexion, knee extension, dorsiflexion, plantarflexion, EHL. Sen sation intact over all dermatomes of the lower extremities bilaterally, 2+ patellar and Achilles reflexes bilaterally symmetric, negative clonus bilaterally Test Results: CT lumbar spine shows anteroli sthesis at L4-L5 with disc bulging and some central canal stenosis Emergency Department Course and Treatment: Patient presented with back pain. She has a normal neurologic exam do not believe that MRI is indicated, but given her cancer history I do believe that CT is appropriate. CT shows no evidence of malignancy. Patient was given a dose of kenalog due to borderline diabetes. Patient currently has no red flag signs and symptoms. She will continue taking Tylenol for pain control and will follow up with primary care. Disposition: Discharge Impression: 1. Lumbar radiculopathy secondary to L4-L5 an terolisthesis with disc bulge This note was generated with dINK dictation software. It may contain incorrect words, spelling, and punctuation that were not noted in review of the chart prior to sig [facility] ED Disposition - Plan for ED Patient: Disposition: Home or Assisted Living Chief Complaint: Back Diagnosis: Lumbar radicular pain Instructions: ED Sciatica Referrals: Katie Fernández, DO [Prima ry Care Provider] - As Needed What to do if you have Problems For any increased pain, shortness of breath, bleeding, nausea or vomiting, chest pain, or any unexpected problems, contact your Primary Care Provider. Call [facility] ([phone]) or report to the closest Emergency Room. Call 911 if necessary. 03/03/18 1554 <Electronically signed by Woody Alvarado MD> Date ____ Woody Alvarado MD Cosigner Signature (If Indicated): Date CC: Katie Fernández DO 03-Mar-2018 Spine Lumbar without Contrast Result: Comments: See Note; NOTES: [facility] Imaging Services [address] [place] [address] Spine Lumbar without Contrast MR#: [id number] Acct: [id number] Name: JONAHDonteLISETTE Rep #: [id number] : 1950 F 67 From: Riccardo Vazquez MD PCP: Katie Fernández DO Status: REG ER Study: Spine Lumbar without Contrast Date of Exam: 03/03/18 Exam# [id number] Ordering Dr: Epi Alvarado MD STUDY: CT LUMBAR SPINE WITHOUT CONTRAST REASON FOR EXAM: Female, 67 years old. Low back pain and lower extremity pain. History of stage IV lung cancer. RADIATION DOSAGE (If Supplied By [facility] ity): CTDIvol = ( 17.07 ) mGy, DLP = ( 606.85 ) mGycm TECHNIQUE: The patient was scanned in a multi detector CT scanner. High resolution transaxial imaging was performed. Images were obtained from L1 t o S1 level. Sagittal and coronal images were reconstructed. Individualized dose optimization techniques were used for this CT. COMPARISON: None FINDINGS: Normal elijah mbar lordosis. There is no substantial scoliosis. Normal vertebrae of the lumbar spine. L1-2: Normal endplates. Normal disc height and morphology. Normal bilateral facet joints. Normal central canal a nd bilateral lateral recesses. Normal bilateral intervertebral neural foramina. L2-3: Normal endplates. Normal disc height and morphology. Normal bilateral facet joints. Normal central canal and bilate ral lateral recesses. Normal bilateral intervertebral neural foramina. L3-4: Minimal degree of diffuse posterior disc bulge. Mild spondylosis. L4-5: Minimal anterior listhesis of L4 on L5. Facet joint osteoarthritis and hypertrophy. Mild degree of central spinal stenosis. L5-S1: Facet joint osteoarthritis and hypertrophy. Mild anterior spondylosis. Atherosclerotic calcification of the aorta. There is a 2.8 cm x 3.1 cm cyst in the left ovary. CT/Spine Lumbar without Contrast IMPRESSION: Multilevel degenerative changes, as described above. M ild degree of central spinal stenosis at the L4-L5 level due to the anterolisthesis and diffuse posterior disc bulge. Left ovarian cyst. Electronically Signed: Riccardo Vazquez MD at 12:3 5 EST Tel [phone], Service support , CC: Katie Fernández DO; Woody Alvarado Business Intelligence Reporting Analyst: Signed 06-Dec-2017 SCREENING MAMM (CAD), BILAT Result: Comments: See Note; NOTES: [facility] Imaging Services [address] [place] [address] SCREENING MAMM (CAD), BILAT MR#: [id number] Acct: [id number] Name: LISETTE CRISOSTOMO Rep # : [id number] : 1950 F 67 From: Riccardo Vazquez MD PCP: Katie Fernández DO Status: REG CLI Study: SCREENING MAMM (CAD), BILAT Date of Exam: 12/06/17 Exam# [id number] Ordering Dr: Paulo Hilario MD MAMMOGRAPHY - BILATERAL SCREENING REASON FOR EXAM: Female, 67 years old. Routine annual screening examination. PERTINENT HISTORY: Mother with breast cancer. Aunt with breast cancer. Patient has a history of small cell carcinoma. TECHNIQUE: Digital bilateral breast cyndi (3D mammographic acquisition) in the CC and MLO projections. 2-D mediolateral oblique (MLO) and craniocaudad (CC) views of b oth breasts were obtained. CAD: Full Field Digital Mammography with Computer Added Detection was performed. COMPARISON: Comparison is made with prior study dated November 23, 2016 and November 23, 2015. __ FINDINGS: Breast Composition: There are scattered areas of fibroglandular density. There are no dominant masses or suspicious calcifications. No other significant ab normalities are identified. There has been no significant change since the prior study. BI/SCREENING MAMM (CAD), BILAT IMPRESSION: Stable bilater al screening mammogram. Yearly follow-up mammogram recommended. (A) ASSESSMENT CATEGORY: BIRADS Category 1: Negative. A letter regarding these results will be sent to the patient by the facility within 30 days. Approximately 10% of breast cancers are not detected by mammography. A normal mammogram should not delay biopsy of a clinically suspicious abnormality. [id number] Electronically Signed: Riccardo Vazquez MD at 13:26 EDT Tel [phone], Service support , CC: Mary Hilario MD; Katie Fernández DO Business Intelligence Reporting Analyst: Signed 12-Mar-2017 Discharge Instruction Result: Comments: See Note; NOTES: [facility] Medical Records Department [address] [place] [address] Discharge Instruction 03/09/17 0655 MR#: [id number] Acct: [id number] Name: LISETTE CRISOSTOMO Rep #: [id number] : 1950 66 From: Norm Box MD PCP: Katie Fernández DO Status: DEP ER ED Disposition - Plan for ED Patient: Disposition: Home or Assisted Living Chief Compl aint: Eye Problem Instructions: ED Eye Injury Corneal Abrasion Referrals: Katie Fernández DO [Primary Care Provider] - Additional Instructions: Follow with your psychiatric nursing assistant check in 5-7 days Wha t to do if you have Problems For any increased pain, shortness of breath, bleeding, nausea or vomiting, chest pain, or any unexpected problems, contact your Primary Care Provider. Call [facility] ([phone]) or report to the closest Emergency Room. Call 911 if necessary. 03/12/17 0643 <Electronically signed by Norm Box MD> Date Norm Box MD Cosigner Signature (If Indicated): Date CC: Katie Fernández DO 12-Mar-2017 Emergency Department Summary Result: Comments: See Note; NOTES: [facility] Medical Records Department [address] [place] [address] Emergency Department Summary 03/09/17 0653 MR#: [id number] Acct: [id number] Name: LISETTE CRISOSTOMO Rep #: [id number] : 1950 66 From: Norm Box MD PCP: Katie Fernández DO Status: DEP ER - ER Visit Summary Date of Service: 03/09/17 Chief Complaint: [] Right eye irri tation and pain History of Present Illness: The patient is a 66 F presents with right eye redness and burning sensation. Is been going on for last 2 days. She wears contacts. She is unsure if she scrat ched her eye with her contact. No injury. No visual problems. Physical Examination: Vital signs reviewed General: Well-nourished well-developed Head: Normocephalic atraumatic Eyes: Pupils equal round a nd reactive to light extraocular movements intact. Positive conjunctivitis right eye. No foreign body seen. Fluorescein instilled after tetracaine and a corneal abrasion noted at the 6 o'clock position. No ulcer. It is measuring 2 x 2 mm ENT: TMs clear no hemotympanum no trauma Neck: Nontender full range of motion Cardiovascular: Regular rate rhythm no murmurs normal S1-S2 Respiratory: No distress tommy ar to auscultation bilaterally chest nontender Abdomen: Soft nontender nondistended normal bowel sounds no masses Back: Nontender no CVA tenderness Extremities: Nontender active range of motion 4 extrem ities no trauma Skin: Normal color no trauma Neuro alert oriented cranial nerves II through XII intact normal strength sensation reflexes Test Results: [] Emergency Department Course and Treatment: [] This time the patient has a corneal abrasion from her contact. She will keep her contact out until healed. She has glasses as well. She was given Cipro ophthalmic and I used tetracaine to numb her eye. She will follow-up with her psychiatric nursing assistant. She will return if she worsens despite treatment. Treatment Plan: [] Disposition: [] Impression: [] Right corneal abrasion secondary to contact lens. T his note was generated with dINK dictation software. It may contain incorrect words, spelling, and punctuation that were not noted in review of the chart prior to signing ED Disposition - Plan for ED Patient: Chief Complaint: Eye Problem Referrals: Katie Fernández, DO [Primary Care Provider] - What to do if you have Problems For any increased pain, shortness of breath, bleeding, nausea or vom iting, chest pain, or any unexpected problems, contact your Primary Care Provider. Call [facility] ([phone]) or report to the closest Emergency Room. Call 911 if necessary. 03/12/17 0643 &a mp;#60;Electronically signed by Norm Box MD> Date Norm Box MD Cosigner Signature (If Indicated): Date CC: Katie Fernández DO 11-Mar-2017 Discharge Instruction Result: Comments: See Note; NOTES: [facility] Medical Records Department [address] [place] [address] Discharge Instruction 03/11/17 1049 MR#: [id number] Acct: [id number] Name: LISETTE CRISOSTOMO Rep #: [id number] : 1950 66 From: Guilherme Sun MD PCP: Katie Fernández DO Status: DEP ER ED Disposition - Plan for ED Patient: Disposition: Home or Assisted Living Chief Complai nt: Eye Problem Instructions: ED Eye Injury Corneal Abrasion Referrals: Guilherme Broussard MD [STAFF PHYSICIAN] - As soon as possible Additional Instructions: The contacts out. Usual glasses. Call follow -up with Dr. Broussard at the [facility] soon as possible. There is trace in ophthalmic ointment 4 times a day right eye. Tetracaine eyedrops for pain but only for the next 24 hours. Sunglasses to prevent glare. What to do if you have Problems For any increased pain, shortness of breath, bleeding, nausea or vomiting, chest pain, or any unexpected problems, contact your Primary Care Provid er. Call [facility] ([phone]) or report to the closest Emergency Room. Call 911 if necessary. 03/11/17 6289 <Electronically signed by Guilherme Sun MD> Date ___ Guilherme Sun MD Cosigner Signature (If Indicated): Date CC: Katie Fernández 11-Mar-2017 Emergency Department Summary Result: Comments: See Note; NOTES: [facility] Medical Records Department [address] [place] [address] Emergency Department Summary 03/11/17 1046 MR#: [id number] Acct: [id number] Name: LISETTE CRISOSTOMO Rep #: [id number] : 1950 66 From: Guilherme Sun MD PCP: Katie Fernández DO Status: DEP ER - ER Visit Summary Date of Service: 03/11/17 Chief Complaint: Right eye discomfor t History of Present Illness: The patient is a 66 F does wear contacts. On started having right eye discomfort. Was seen in the [facility] ER Saturday evening and was diagnosed with a right e ye corneal abrasion about 6:00. Was instructed not to wear contacts. And was treated with Cipro eyedrops. Also follow-up with her eye doctor. Physical Examination: Signs stable afebrile. HEENT exam unr emarkable. Pupils round reactive light. Extra motions intact. Upper and lower lids are unremarkable. No facial swelling. No preauricular lymphadenopathy. No orbital cellulitis. No proptosis. Neck nonten jing no lymphadenopathy. Otherwise exam unremarkable. Test Results: None Emergency Department Course and Treatment: Tetracaine was instilled in the patient's right eye with good relief of symptoms. i t-lamp examination was performed with floor seen. Both the upper and lower lids were everted with no signs of foreign body or trauma. The right eye has a corneal abrasion about 6:00 below and not involv ing the pupil. I see no signs of globe penetration. The pupil and lens appear to be normal shape. Extraocular motions are intact. There is no signs of discharge. There is no orbital swelling. No proptos is. Visual acuity will be obtained prior to discharge Treatment Plan: Bacitracin ophthalmic ointment to the right eye. [facility] Broussard Disposition: Discharge Impressio n: Right eye corneal abrasion after contact lens use. This note was generated with dINK dictation software. It may contain incorrect words, spelling, and punctuation that were not noted in review of the chart prior to signing ED Disposition - Plan for ED Patient: Chief Complaint: Eye Problem Referrals: Katie Fernández, [Primary Care Provider] - What to do if you have Problems For any inc reased pain, shortness of breath, bleeding, nausea or vomiting, chest pain, or any unexpected problems, contact your Primary Care Provider. Call [employer] ([phone]) or report to the closest Emergency Room. Call 911 if necessary. 03/11/17 1545 <Electronically signed by Guilherme Sun MD> Date Guilherme Sun MD Valentínignmakenzie S ignature (If Indicated): Date CC: Katie Fernández DO 23-Nov-2016 SCREENING MAMM (CAD), BILAT Result: Comments: See Note; NOTES: [facility] Imaging Services [address] [place] [address] SCREENING MAMM (CAD), BILAT MR#: [id number] Acct: [id number] Name: LISETTE CRISOSTOMO Rep # : [id number] : 1950 F 66 From: Riccardo Vazquez MD PCP: Katie Fernández DO Status: [facility] CLI Study: SCREENING MAMM (CAD), BILAT Date of Exam: 11/23/16 Exam# [id number] Ordering Dr: Paulo Hilario MD MAMMOGRAPHY - BILATERAL SCREENING REASON FOR EXAM: Female, 66 years old. Routine annual screening examination. PERTINENT HISTORY: Mother with breast cancer. Aunt with breast cancer. Remote righ t breast biopsy. TECHNIQUE: Digital bilateral breast cyndi (3D mammographic acquisition) in the CC and MLO projections. 2-D mediolateral oblique (MLO) and craniocaudad (CC) views of both breasts were ob tained. CAD: Full Field Digital Mammography with Computer Added Detection was performed. COMPARISON: Comparison is made with prior study dated November 21, 2015 and November 17, 2014. FINDINGS: Breast Composition: The breasts are heterogeneously dense, which may obscure small masses. There are no dominant masses or suspicious calcifications. Stable scattered bilateral calcifications. No focal clustering is seen. A skin tag is seen in the deep axillary portion of the left breast. No other significant abnormalities are identified. There has been no significant change since the prior study. HPBI/SCREENING MAMM (CAD), BILAT IMPRESSION: Stable bilateral screening mammogram. Yearly follow-up mammogram recommended. (A) ASSESSMENT CATEGORY: BIRADS Category 2: Benign. A letter regarding these results will be sent to the patient by the facility within 30 days. Approximately 10% of breast cancers are not detected by mammography. A normal mammogram should not delay biopsy of a clinically suspicious abnormality. [id number] Electronically Signed: Riccardo Vazquez MD a t 10:53 EDT Tel [phone], Service support , CC: Mary Hilario MD; Katie Fernández DO Business Intelligence Reporting Analyst: Signed 03-Sep-2016 Soft Tissue Neck WITH Contrast Result: Comments: See Note; NOTES: [facility] Imaging Services [address] [place] [address] Verdana 4d Soft Tissue Neck WITH Contrast MR#: [id number] Acct: [id number] Name: Siobhan CRISOSTOMO Rep #: [id number] : 1950 F 65 From: Nanette Miranda MD PCP: Katie Fernández DO Status: REG CLI Study: Soft Tissue Neck WITH Contrast Date of Exam: 09/03/16 Exam# [id number] Ordering Dr: Katie Breen DO STUDY: CT SOFT TISSUE NECK WITH CONTRAST REASON FOR EXAM: Female, 65 years old. RT SIDED LYMPHADENOPATHY X 1 MON, TOOK ATB WITH NO RELIEF, HX-DB, HTN RADIATION DOSAGE (If Supplied By Facility): CTDIvol = ( 18.69 ) mGy, DLP = ( 457.21 ) mGycm TECHNIQUE: The patient was scanned in a multi-detector CT scanner. High resolution transaxial imaging was performed following intravenous administration of 75 ml of Isovue 300 contrast material. Sagittal and coronal images were reconstructed. Individualized dose optimization techniques were used for this CT. COMPARISON: None. FINDINGS: Normal bilateral parotid glands. Normal bilateral distance education teacher spaces. Normal bilateral parapharyngeal spaces. Normal bilateral carotid spaces. Normal bilateral subli ngual and submandibular glands and spaces. Normal visualized nasopharynx. Normal retropharyngeal space. Normal perivertebral space. Normal visualized bilateral faucial tonsils. The visualized tongue, tongue base and oropharynx are normal. Enlarged cervical lymph nodes are noted on the right side at the levels IIb, III, V suggesting a neoplastic process. There is also enlargement of the mediastinal lymph nodes largest lymph node is in the right paratracheal region measures 3.4 x 2.1 cm. There is no demonstrated solid or cystic mass lesion. There is no abnormal contrast enhancement. Normal epiglot tis, bilateral vallecula and hypopharynx. The pre-epiglottic and paraglottic adipose spaces are normal. Normal visualized bilateral piriform sinuses, aryepiglottic folds, vocal cords, and arytenoid-cric oid articulations. Normal subglottic trachea. There are bilateral nonspecific thyroid nodules largest is in the right thyroid lobe measures 1.9 x 1.4 cm. Normal visualized pulmonary apices. Normal vis ualized paranasal sinuses. Normal visualized cervical spine. CT/Soft Tissue Neck WITH Contrast IMPRESSION: Enlarged cervical lymph nodes are note d on the right side at the levels IIb, III and V suggesting a neoplastic process such as lymphoma or metastatic disease. There is also enlargement of the mediastinal lymph nodes largest lymph node is in the right paratracheal region measures 3.4 x 2.1 cm. There are bilateral nonspecific thyroid nodules largest is in the right thyroid lobe measures 1.9 x 1.4 cm. Electronically Signed: Nanette Miranda MD at 7:40 EDT Tel , Service support , CC: Katie Fernández DO Business Intelligence Reporting Analyst: Signed 23-Nov-2015 Unilat Rt Diag Digital AND CAD Result: Comments: See Note; NOTES: [facility] Imaging Services [address] [place] [address] Verdana 4d Unilat Rt Diag Digital AND CAD MR#: [id number] Acct: [id number] Name: LISETTE CRISOSTOMO Rep #: [id number] : 1950 F 65 From: Nanette Miranda MD PCP: Олег Santos Status: REG CLI Study: Unilat Rt Diag Digital AND CAD Date of Exam: 11/23/15 Exam# [id number] Ordering Dr: Mary Hilario MD MAMMOGRAPHY - UNILATERAL DIAGNOSTIC: RIGHT BREAST REASON FOR EXAM: Female, 65 years old. cluster of microcalcification is noted in the right breast lateral aspect PERTINENT HISTORY: FM H X- MOTHER @ 78, 3 MAT AUNTS AGES ?. RT BREAST BX 1990 TECHNIQUE: Digital unilateral breast magnification views in the CC and MLO projections. 2-D mediolateral oblique (MLO) and craniocaudad (CC) views of both breasts were obtained. CAD. CAD was performed on this study. COMPARISON: MG - Breast Bilateral - 09:19 FINDINGS: Breast Composition: The breasts are heterogeneously dense, which may obscure small masses. The previously described cluster of microcalcification contains a multiple round and coarse benign appearing calcifications. No other signifi cant abnormalities are identified. HPBI/Unilat Rt Diag Digital AND CAD IMPRESSION: Stable unilateral diagnostic mammogram. One year follow-up ma mmogram recommended. (A) ASSESSMENT CATEGORY: BIRADS Category 2: Benign. A letter regarding these results will be sent to the patient by the facility within 30 days . Approximately 10% of breast cancers are not detected by mammography. A normal mammogram should not delay biopsy of a clinically suspicious abnormality. Electronically Signed: Nanette Miranda MD 11/22 at 9:33 EDT Tel , Service support [phone], CC: Mary Hilario MD; Олег Santos Business Intelligence Reporting Analyst: Signed 21-Nov-2015 Bilat Scrn Digital AND CAD Result: Comments: See Note; NOTES: [facility] Imaging Services [address] [place] [address] Verdana 4d Bilat Scrn Digital AND CAD MR#: [id number] Acct: [id number] Name: DINORA CRISOSTOMO Rep #: [id number] : 1950 F 65 From: Nanette Miranda MD PCP: Олег Santos Status: REG CLI Study: Bilat Scrn Digital AND CAD Date of Exam: 11/21/15 Exam# [id number] Ordering Dr: Mary Hilario MD MAMMOGRAPHY - BILATERAL SCREENING REASON FOR EXAM: Female, 65 years old. Routine annual screening examination. PERTINENT HISTORY: FM HX- MOTHER @ 78, 3 MAT AUNTS AGES ?. RT BREAST BX 1989 (-).BI LAT SKIN TAGS/HEMANGIOMAS MARKED TECHNIQUE: Digital bilateral breast tomosynthesis (3-D mammographic acquisition) in the CC and MLO projections. Synthesized 2-D images (C-View reconstruction from tomos ynthesis acquisition) providing bilateral breast CC and MLO views. Mediolateral oblique (MLO) and craniocaudad (CC) views of both breasts were obtained. CAD: Full Field Digital Mammography with Computer Added Detection was performed. COMPARISON: MG - Breast Bilateral - 14:32 FINDINGS: Breast Density: C - Heterogeneously dense, which may obscure small ma sses. here is a cluster of microcalcification is noted in the right breast lateral aspect for which further evaluation by magnification views and ultrasound would be recommended. No other significant abnormalities are identified. HPBI/Bilat Scrn Digital AND CAD IMPRESSION: Further imaging evaluation recommended, as described above. (E) ASSESSMENT CATEGORY: BIRADS Category 0: Incomplete. Need additional imaging evaluation. A letter regarding these results will be sent to the patient by the facility withi n 30 days. Approximately 10% of breast cancers are not detected by mammography. A normal mammogram should not delay biopsy of a clinically suspicious abnormality. [id number] Electronically Signed: Nanette Miranda MD at 16:57 EDT Tel , Service support [phone], CC: Mary Hilario MD; Олег Santos Business Intelligence Reporting Analyst: Signed 20-Sep-2015 Bone Survey Comp(Axial AND Append) Result: Comments: See Note; NOTES: [facility] Imaging Services [address] [place] [address] Verda 4d Bone Survey Comp(Axial AND Append) MR#: [id number] Acct: [id number] Name: LISETTE CRISOSTOMO Rep #: [id number] : 1950 F 65 From: Germán Ashford MD PCP: Jewell Coffman DO Status: REG CLI Study: Bone Survey Comp(Axial AND Append) Date of Exam: 09/20/15 Exam# [id number] Ordering Dr: Mateusz Pham DO STUDY: X-RAY BONE SURVEY COMPLETE REASON FOR EXAM: Female, 65 years old. Monoclonal gammopathy. TECHNIQUE: Single frontal view of the chest. One view of the pelvis was obtained. 3 views of the cervical spine were obtained. 2 views of the thoracic spine were obtained. 2 views of the lumbar spine were obtained. 2 views of the femur. 2 views of the hum erus. : 2 views of the skull were obtained. COMPARISON: None. FINDINGS: CHEST: The lungs are clear and expanded. There is no demonstrated pleural abnormality . Normal size heart. Normal mediastinum and marian. Normal visualized pulmonary arteries. Normal visualized aortic arch and descending thoracic aorta. There are diffuse degenerative changes of the v isualized thoracic spine. Normal visualized ribs, clavicles, and shoulders. There is no demonstrated abnormality of the visualized soft tissue structures of the upper abdomen. PELVIS: There is a n on-specific bowel gas pattern. Normal visualized soft tissue structures. Normal bilateral iliac wings, sacroiliac joints and visualized sacrum. Normal visualized bilateral superior and inferior pubi c rami. Normal pubic symphysis. Normal ischial tuberosities. Normal visualized right femoral head. Normal right acetabulum. Normal right hip joint. Normal visualized left femoral head. Normal left acetabulum. Normal left hip joint. CERVICAL SPINE: Normal anterior atlantoaxial articulation. Normal odontoid process. Normal cervical lordosis. There is multi-level endplate spondylosis. There is multi-level degenerative disc disease with multilevel disc space narrowing. Normal visualized intervertebral neuroforamina. The soft tissue structures are unremarkable. There is no demonstrated o sseous destructive process of the cervical spine. THORACIC SPINE: Normal kyphosis of the thoracic spine. There is no substantial scoliosis. There is multilevel endplate spondylosis of the thoracic v ertebrae. There is multilevel disc space narrowing of the thoracic spine. The soft tissue structures are unremarkable. LUMBAR SPINE: Normal lumbar lordosis. There is no substantial scoliosis. Ther e is a normal alignment of the vertebrae. There is multilevel endplate spondylosis of the lumbar vertebrae. There is multi-level degenerative disc disease with multi-level disc space narrowing. Ther e is no demonstrated fracture. The soft tissue structures are unremarkable. RIGHT FEMUR: Normal visualized femur. Normal visualized soft tissue structure. There is no demonstrated fracture or destr uctive process. LEFT FEMUR: Normal visualized femur. Normal visualized soft tissue structure. There is no demonstrated fracture or destructive process. RIGHT HUMERUS :Normal visualized humerus. The re is no demonstrated fracture or osseous destructive process. There is no demonstrated soft tissue abnormality. LEFT HUMERUS:Normal visualized humerus. There is no demonstrated fracture or osseou s destructive process. There is no demonstrated soft tissue abnormality. SKULL: There is no demonstrated soft tissue swelling. Normal osseous calvarium. There is no demonstrated lytic or blastic os seous destructive process. Normal visualized facial bones. Normal visualized paranasal sinuses. IMPRESSION: Degenerative changes. No definite focal destructive/lytic lesions. Electronically Sign ed: Germán Ashford MD at 16:50 EDT , Service support [phone], RAD/Bone Survey Comp(Axial AND Append) IMPRESSION: Degenerat anahy changes. No definite focal destructive/lytic lesions. Electronically Signed: Germán Ashford MD at 16:50 EDT , Service support [phone], CC: Jewell Coffman DO; Mateusz Pham D.O. Business Intelligence Reporting Analyst: Signed 20-Sep-2015 Spleen Result: Comments: See Note; NOTES: [facility] Imaging Services [address] [place] [address] Verdana 4d Spleen MR#: [id number] Acct: [id number] Name: LISETTE CRISOSTOMO Lizz Krishnamurthy p #: [id number] : 1950 F 65 From: Riccardo Vazquez MD PCP: Jewell Coffman DO Status: REG CLI Study: Spleen Date of Exam: 09/20/15 Exam# [id number] Ordering Dr: Mateusz Pham DO STUDY: A BDOMINAL ULTRASOUND - LEFT UPPER QUADRANT REASON FOR VISIT: Female, 65 years old. Monoclonal gammopathy. TECHNIQUE: Ultrasound evaluation of the right upper quadrant was performed with real-time an d static morin-scale imaging. TECHNICAL QUALITY: Adequate. COMPARISON: None. FINDINGS: SPLEEN : The spleen measures 8.4 cm by 2.5 cm 2.7 cm. There is homogene ous appearance of the spleen. IMPRESSION: Unremarkable sonographic examination of the spleen. Electronically Signed: Riccardo Vazquez MD at 14: 09 EDT Tel [phone], Service support [phone], CC: Jewell Coffman DO; Mateusz Pham D.O. Business Intelligence Reporting Analyst: Signed 09-Sep-2015 EKG ([id number]) Comments: ekg showed normal sinus rhythym, normal axis, no acute st/t wave changes Result: [MEASUREMENTS ANALYSIS] Date of Test: 09/09/2015 12:22:24; Heart Rate: 65; VA Interval: 168; QRS: 82; QT Interval: 392; Corrected QT Interval (QTc): 400; P Wave [place]: 36; QRS Wave [place]: 24; T Wave [place]: 22; Blood Pressure: 102/62 [ECG DIAGNOSTIC STATEMENTS] Date of Test: 09/09/2015 12:22:24; Summary: Sinus Rhythm WITHIN NORMAL LIMITS 08-Feb-2015 Operative Report Result: Comments: See Note; NOTES: [facility] Medical Records Department [address] [place] [id number] Operative Report MR#: [id number] Acct: [id number] Name: DINORA CRISOSTOMO Rep #: [id number] : 1950 64 From: Jan Yoder MD PCP: Jewell Cfofman DO Status: REG CLI DATE OF SERVICE: 02/08/2015 DATE OF SERVICE: February 08, 2015 PROCEDURE PERFORMED: Colon oscopy to the cecum with a biopsy of the sessile polyp in the sigmoid colon. PREOPERATIVE DIAGNOSIS: Screening colonoscopy. PREOPERATIVE DIAGNOSIS: Sessile polyp removed from the sigmoid colon via cold biopsy forceps, normal-looking cecum. SURGEON: Jan Yoder M.D. MEDICATIONS GIVEN: Anesthesia via MAC. INSTRUMENT: Olympus adjustable pediatric colonoscope. DESCRIPTION OF PROCEDUR E: Informed consent was obtained prior to the procedure. The patient was brought to the procedure room, placed left shoulder down and given the above medications. Anesthesia via MAC. Rectal exam reve aled no palpable masses. The colonoscope was passed in retrograde and the mucosa appeared normal. Moving up the left colon, the vascular pedicles were normal. Across the transverse colon, there were n o large polyps seen. Down the right colon, cecum was well visualized. There were no abnormalities of the cecum. Back up the ascending colon, the mucosa was normal. Across the transverse colon, there w ere no large polyps seen. Below the splenic flexure and down through the left colon, the vascular pedicles were normal. In the sigmoid area, there was a sessile polyp. Using cold biopsy forceps, mult iple pieces of the sessile polyp were removed. Down at the distal sigmoid and rectum, there were no large polyps seen. Retroflexion from the rectum showed some small internal hemorrhoids. The colon wa s decompressed. The patient tolerated the procedure well. IMPRESSION: This is a 64-year-old female with screening colonoscopy, sessile polyp removed from the colon. PLAN: Follow up the biopsies, repeat a colonoscopy in 5 years. MD Siobhan Evans C: Jewell Coffman DO T: [facility] JOB: [id number] 02/08/15 1434 <Electronically signed by Jan Yoder MD> Date ___ Jan Yoder MD Cosigner Signature (If Indicated): Date CC: Jewell Coffman DO; Jan Yoder Date Dictate d: 02/08/15812 Date Transcribed: 02/08/15812 Business Intelligence Reporting Analyst: Signed 17-Nov-2014 Bilat Scrdonte Digital AND CAD Result: Comments: See Note; NOTES: [facility] Imaging Services [address] [place] [address] Breast Imaging Report MR#: [id number] Acct: [id number] Name: LISETTE CRISOSTOMO Rep #: [id number] : 1950 F 64 From: Riccardo Vazquez MD PCP: Jewell Coffman DO Status: [facility] CLI Study: Bilat Scrn Digital AND CAD Date of Exam: 11/17/14 Exam# [id number] Ordering Dr: Mary Hilario MD MAMMOGRAPHY - BILATERAL SCREENING REASON FOR EXAM: Female, 64 years old. Routine annual screening examination. PERTINENT HISTORY: Mother with breast cancer. TECHNIQUE: Digital examination . Mediolateral oblique (MLO) and craniocaudad (CC) views of both breasts were obtained. CAD: CAD was performed on this study. COMPARISON: Comparison is made with prior study dated November 16, 2013 and November 11, 2012. FINDINGS: Breast Composition: There are scattered areas of fibroglandular density. There are no dominant masses or suspicious calcifications. S table asymmetrical density is seen in the inferior aspect of the right breast. This most likely corresponds to superimposition of tissue. No other significant abnormalities are identified. There has been no significant change since the prior study. IMPRESSION: Stable bilateral screening mammogram. Yearly follow-up recommended. (A) ASSESSMENT CATEGORY: BIRADS Category 2: Benign. A letter regarding these results will be sent to the patient by the facility within 30 days. Approximately 10% of breast cancers are not detected by mammography. A normal mammogram should not delay biopsy of a clinically suspicious abnormality. Electronically Signed: Riccardo Vazquez MD at 14:50 EDT Tel [phone], Service support [phone], CC: Jewell Coffman DO; Mary Hilario MD Business Intelligence Reporting Analyst: Signed 05-Jan-2014 PT Discharge Summary Result: Comments: See Note; NOTES: [facility] Physical Therapy [facility] [place], [place] [address] Fax REHABILITATION SERVICES DISCHARGE SUMMARY MR#: [id number] Acct: [id number] Name: LISETTE CRISOSTOMO Rep #: [id number] : 1950 63 From: Iesha Starr Referring DrJuan: Concha Ford Status: PRE RCR Eval Date: Discharge Date: DATE OF SERVICE: REFERRING PHYSICIAN: Concha Ford. REFERRING DIAGNOSIS: Hip pain. Lisette was seen in our clinic for a total of 3 visits. She feels that she has a little twinges when she walks and sitting. She has been lazy with her exercises, she has been doing them every other day. She reports her pain is a 2-3/10. The patient reports that she was up and down in the [facility] last couple of days prior to August 11, 2013, and she wanted to try an ultrasound. I told the patient that I would hold her chart x2 weeks. If she did return or call, we will be discharging her. I w ill be discharging her from our care at this time. Thank you once again for the referral of Lisette to our clinic. Sincerely, Iesha Starr, PT T: [facility] JOB: [id number] <Electronicall y signed by Iesha Starr > 01/05/14 1351 CC: Signed 16-Nov-2013 Garett Carcamo Digital & CAD Result: Comments: See Note; NOTES: [facility] Imaging Services [address] [place] [address] Breast Imaging Report MR#: [id number] Acct: [id number] Name: LISETTE CRISOSTOMO Rep # : [id number] : 1950 F 63 From: Riccardo Vazquez MD PCP: Jewell Coffman DO Status: REG CLI Exam# [id number] Ordering Dr: Mary Hilario MD MAMMOGRAPHY - BILATERAL SCREENING REASON FOR EXA M: Female, 63 years old. Routine annual screening examination. PERTINENT HISTORY: Mother with breast cancer. TECHNIQUE: Digital examination. Mediolateral oblique (MLO) and craniocaudad (CC) views of both breasts were obtained. CAD: CAD was performed on this study. COMPARISON: Comparison is made with prior study dated November 11, 2012 and November 08, 2011. FIN DINGS: The breast composition is heterogeneously dense, ranging from 51% to 75% of the total breast volume, which may obscure small masses. There are no dominant masses or suspicious calcifications. No other significant abnormalities are identified. There has been no significant change since the prior study. IMPRESSION: Stable bilateral screening mammogra m. Yearly follow-up recommended. (A) ASSESSMENT CATEGORY: BIRADS Category 2: Benign finding(s). A letter regarding these results will be sent to the patient by located within [facility] facility within 30 days. Approximately 10% of breast cancers are not detected by mammography. A normal mammogram should not delay biopsy of a clinically suspicious abnormality. Electronically S igned: Riccardo Vazquez MD at 14:47 EDT Tel [phone], Service support [phone], CC: Jewell Coffman DO; Mary Hilario MD Business Intelligence Reporting Analyst: Signed 14-Aug-2013 Inital Evaluation - PT Result: Comments: See Note; NOTES: [facility] Physical Therapy [facility] [address] [place] [address] Fax REHABILITATION SERVICES INITIAL EVALUATION MR#: [id number] Acct: [id number] Name: LISETTE CRISOSTOMO Rep #: [id number] : 1950 62 From: Iesha Starr Referring Dr.: Concha Ford Status: DIS RCR Insurance: [facility] Date: DATE OF SERVICE: 07/21/2013 REFERRING PHYSICIAN: Concha Ford REFERRING DIAGNOSIS: Hemiarthrosis of the pelvis. SUBJECTIVE: The patient is a 62-year-old female, who reports to clinic today with a diagnosis of hemiarthrosis of the pelvis. The patient reports that she has pain in her hip. She has mild degeneration on x-ray. She has less pain today than she has had in a [facility]. She feels her sitting posture at work could be contributing to some of her pain. That hurts when she goes to get up from a chair. She can feel it when she is walking, when she is up and once in awhile she feels that when she lays in bed. This has been going on for at least a month now. She is able to lay on her left hip, but she is also starting to develop some scapulothoracic pain. She rep orts no weakness. Her sitting posture at work, he sits with her feet up on the rings of the chair, so her hips are in flexion and a forward trunk. The patient has bilateral carpal tunnel. When she s its to stand her pain is more of a grabbing pain and is 6/10; with walking, it is more of a dull pain ; ____ 2/10 on her left hip. OBJECTIVE: The patient's manual muscle testing, hip abduction rig ht 4/5, left 4-/5; hip extension right 4+/5, left 4-/5; knee flexion bilaterally 4/5; hip flexion right 4/5, left 4-/5; dorsiflexion and plantar flexion bilaterally 5/5; hip extension right 4/5, lef t 4-/5. The patient has good IT band length bilaterally. She has tight hip flexor with her left being worse than her right in tight hamstrings with her left being more tight than her right. She has good bilateral piriformis length. She has positive weakness and hip drop on the left upon observation of gait. ASSESSMENT: The patient presents with a diagnosis of hemiarthrosis of the pelvis. VA OBLEMS: 1. Increased pain. 2. Decreased hip strength. GOALS: 1. Independent with home exercise program. 2. Decrease pain with [id number] to 0/10. 3. Increase left hip strength by half a muscle grade. PLAN: Plan of care is reviewed by the patient. Received the patient's consent to treat. I plan on seeing the patient 2-3 times per week for 2-4 weeks for hip quad, hip flexor stretching, haley mstring stretching, left hip strength with a home exercise program and modalities as needed. Iesha Starr, PT T: [facility] JOB: [id number] <Electronically signed by Iesha Starr > 0 08/14/13 1426 CC: Signed For Medicare only, by signing this I certify the plan of care. Physicians Signature Date 07-Jul-2013 Hip min 2 Views Result: Comments: See Note; NOTES: [facility] Imaging Services [address] [place] [address] Radiology Report MR#: [id number] Acct: [id number] Name: LISETTE CRISOSTOMO Rep #: [id number] : 1950 F 62 From: Nakul Hernandez DO PCP: Jewell Coffman DO Status: REG CLI Study: Hip min 2 Views Date of Exam: 07/07/13 Exam# [id number] Ordering Dr: Concha Ford STUDY: X-RAY - LEFT HI P REASON FOR EXAM: Female, 62 years old. Pain without injury. TECHNIQUE: 2 views of the hip. COMPARISON: None. FINDINGS: There is no acute fracture, disloca tion or destructive osseous pathology. Normal femoral head, neck, intertrochanteric region and visualized proximal femur. Normal acetabulum. There is mild articular joint space narrowing. Normal vi sualized superior and inferior pubic rami and ischial tuberosities. There is no demonstrated soft tissue abnormality. IMPRESSION: Minimal degenerative changes of the left hip. Electronically Signed: Nakul Hernandez D.O. at 21:51 EDT , Service support [phone], RAD/Hip min 2 Views IMPRES LUCIA: Minimal degenerative changes of the left hip. Electronically Signed: Nakul Hernandez D.O. at 21:51 EDT , Service support [phone], CC: M yayo Citorrey Coffman DO Business Intelligence Reporting Analyst: Signed Family History Unknown Family Member Name Dates Details Brother 1 Comments: In stable health- chrohns Status: Active Brother 2 Comments: In good health Status: Active Father Comments: - 78- chf, cva Status: Active Mother Comments: In good health- breast cancer- dx age 79- age 87- from metastatic breast cancer Status: Active Sister 1 Comments: In good health Status: Active Social History Name Dates Details Caffeine Use Status: Active No Drug Use Status: Active Non Drinker/No Alcohol Use Status: Active Tobacco Use: Current every day smoker. Comments: 6 to 8 cigs daily- 12/11/10 Status: Active Smoking Status Name Dates Details Current every day smoker Vital Signs Date Test Result Details :50 Temperature 98.5 f Comments: Method: Temporal Pulse 109 /min Comments: Pattern: Regular Respiration Rate 17 /min Comments: Pattern: Unlabored O2 SAT 96 % Comments: Room air BP Systolic 138 mm[Hg] Comments: Patient Position: Sitting; Cuff Location: Left Arm; Cuff Size: Standard BP Diastolic 78 mm[Hg] Comments: Patient Position: Sitting; Cuff Location: Left Arm; Cuff Size: Standard Weight 158 lb Height 57 in Body Mass Index Calculated 34.19 kg/m2 Body Surface Area Calculated 1.63 m2 :31 Temperature 98.2 f Comments: Method: Temporal Pulse 80 /min Comments: Pattern: Regular Respiration Rate 16 /min Comments: Pattern: Unlabored O2 SAT 92 % Comments: Room air BP Systolic 122 mm[Hg] Comments: Patient Position: Sitting; Cuff Location: Left Arm; Cuff Size: Standard BP Diastolic 66 mm[Hg] Comments: Patient Position: Sitting; Cuff Location: Left Arm; Cuff Size: Standard Weight 158 lb Height 57 in Body Mass Index Calculated 34.19 kg/m2 Body Surface Area Calculated 1.63 m2 :55 Temperature 97.1 f Comments: Method: Temporal Pulse 84 /min Comments: Pattern: Regular Respiration Rate 18 /min Comments: Pattern: Unlabored O2 SAT 94 % Comments: Room air BP Systolic 122 mm[Hg] Comments: Patient Position: Sitting; Cuff Location: Left Arm; Cuff Size: Standard BP Diastolic 62 mm[Hg] Comments: Patient Position: Sitting; Cuff Location: Left Arm; Cuff Size: Standard Weight 157 lb Height 57 in Body Mass Index Calculated 33.97 kg/m2 Body Surface Area Calculated 1.62 m2 [id number]:43 Temperature 98.7 f Comments: Method: Temporal Pulse 88 /min Comments: Pattern: Regular Respiration Rate 16 /min Comments: Pattern: Unlabored O2 SAT 98 % Comments: Room air BP Systolic 128 mm[Hg] Comments: Patient Position: Sitting; Cuff Location: Left Arm; Cuff Size: Standard BP Diastolic 76 mm[Hg] Comments: Patient Position: Sitting; Cuff Location: Left Arm; Cuff Size: Standard Weight 157 lb Height 57 in Body Mass Index Calculated 33.97 kg/m2 Body Surface Area Calculated 1.62 m2 :02 Pulse 69 /min Comments: Pattern: Regular Respiration Rate 18 /min Comments: Pattern: Unlabored O2 SAT 96 % Comments: Room air BP Systolic 120 mm[Hg] Comments: Patient Position: Sitting; Cuff Location: Left Arm; Cuff Size: Standard BP Diastolic 70 mm[Hg] Comments: Patient Position: Sitting; Cuff Location: Left Arm; Cuff Size: Standard Weight 146.125 lb Height 57 in Body Mass Index Calculated 31.62 kg/m2 Body Surface Area Calculated 1.57 m2 :51 Pulse 85 /min Comments: Pattern: Regular Respiration Rate 18 /min Comments: Pattern: Unlabored O2 SAT 97 % Comments: Room air BP Systolic 118 mm[Hg] Comments: Patient Position: Sitting; Cuff Location: Left Arm; Cuff Size: Standard BP Diastolic 62 mm[Hg] Comments: Patient Position: Sitting; Cuff Location: Left Arm; Cuff Size: Standard Weight 127.5 lb Height 57 in Body Mass Index Calculated 27.59 kg/m2 Body Surface Area Calculated 1.49 m2 :49 Pulse 80 /min Comments: Pattern: Regular Respiration Rate 18 /min Comments: Pattern: Unlabored O2 SAT 98 % Comments: Room air BP Systolic 142 mm[Hg] Comments: Patient Position: Sitting; Cuff Location: Left Arm; Cuff Size: Standard BP Diastolic 78 mm[Hg] Comments: Patient Position: Sitting; Cuff Location: Left Arm; Cuff Size: Standard Weight 127.5 lb Height 57 in Body Mass Index Calculated 27.59 kg/m2 Body Surface Area Calculated 1.49 m2 :09 Comments: [facility] and had a glaucoma test donehearing wn Pulse 67 /min Comments: Pattern: Regular Respiration Rate 18 /min Comments: Pattern: Unlabored O2 SAT 98 % Comments: Room air BP Systolic 110 mm[Hg] Comments: Patient Position: Sitting; Cuff Location: Left Arm; Cuff Size: Standard BP Diastolic 68 mm[Hg] Comments: Patient Position: Sitting; Cuff Location: Left Arm; Cuff Size: Standard Weight 128.125 lb Height 57 in Body Mass Index Calculated 27.73 kg/m2 Body Surface Area Calculated 1.49 m2 :23 Pulse 95 /min Comments: Pattern: Regular Respiration Rate 18 /min Comments: Pattern: Unlabored O2 SAT 98 % Comments: Room air BP Systolic 118 mm[Hg] Comments: Patient Position: Standing; Cuff Location: Left Arm; Cuff Size: Standard BP Diastolic 60 mm[Hg] Comments: Patient Position: Standing; Cuff Location: Left Arm; Cuff Size: Standard Weight 129.375 lb Height 57 in Body Mass Index Calculated 28 kg/m2 Body Surface Area Calculated 1.49 m2 :17 Temperature 97.6 f Comments: Method: Tympanic Pulse 90 /min Comments: Pattern: Regular Respiration Rate 18 /min Comments: Pattern: Unlabored O2 SAT 98 % Comments: Room air BP Systolic 116 mm[Hg] Comments: Patient Position: Sitting; Cuff Location: Left Arm; Cuff Size: Standard BP Diastolic 70 mm[Hg] Comments: Patient Position: Sitting; Cuff Location: Left Arm; Cuff Size: Standard Weight 134.375 lb Height 57 in Body Mass Index Calculated 29.08 kg/m2 Body Surface Area Calculated 1.52 m2 :14 Temperature 97.4 f Comments: Method: Temporal Pulse 67 /min Comments: Pattern: Regular Respiration Rate 16 /min Comments: Pattern: Unlabored O2 SAT 97 % Comments: Room air BP Systolic 122 mm[Hg] Comments: Patient Position: Sitting; Cuff Location: Left Arm; Cuff Size: Standard BP Diastolic 78 mm[Hg] Comments: Patient Position: Sitting; Cuff Location: Left Arm; Cuff Size: Standard Weight 136 lb Height 57 in Body Mass Index Calculated 29.43 kg/m2 Body Surface Area Calculated 1.53 m2 :40 Temperature 98.3 f Comments: Method: Oral Pulse 76 /min Comments: Pattern: Regular Respiration Rate 15 /min Comments: Pattern: Unlabored BP Systolic 102 mm[Hg] Comments: Patient Position: Sitting; Cuff Location: Left Arm; Cuff Size: Standard BP Diastolic 62 mm[Hg] Comments: Patient Position: Sitting; Cuff Location: Left Arm; Cuff Size: Standard Weight 137 lb Height 57 in Body Mass Index Calculated 29.65 kg/m2 Body Surface Area Calculated 1.53 m2 :01 Temperature 98.8 f Comments: Method: Temporal Pulse 86 /min Comments: Pattern: Regular Respiration Rate 15 /min Comments: Pattern: Unlabored O2 SAT 97 % Comments: Room air BP Systolic 106 mm[Hg] Comments: Patient Position: Sitting; Cuff Location: Left Arm; Cuff Size: Standard BP Diastolic 68 mm[Hg] Comments: Patient Position: Sitting; Cuff Location: Left Arm; Cuff Size: Standard Weight 139 lb Height 57 in Body Mass Index Calculated 30.08 kg/m2 Body Surface Area Calculated 1.54 m2 :18 Temperature 98.1 f Comments: Method: Oral Pulse 72 /min Comments: Pattern: Regular Respiration Rate 16 /min Comments: Pattern: Unlabored BP Systolic 110 mm[Hg] Comments: Patient Position: Sitting; Cuff Location: Left Arm; Cuff Size: Standard BP Diastolic 64 mm[Hg] Comments: Patient Position: Sitting; Cuff Location: Left Arm; Cuff Size: Standard Weight 141 lb Height 57 in Body Mass Index Calculated 30.51 kg/m2 Body Surface Area Calculated 1.55 m2 :30 Temperature 98 f Comments: Method: Oral Pulse 72 /min Comments: Pattern: Regular Respiration Rate 16 /min Comments: Pattern: Unlabored BP Systolic 110 mm[Hg] Comments: Patient Position: Sitting; Cuff Location: Left Arm; Cuff Size: Standard BP Diastolic 60 mm[Hg] Comments: Patient Position: Sitting; Cuff Location: Left Arm; Cuff Size: Standard Weight 138 lb Height 57 in Body Mass Index Calculated 29.86 kg/m2 Body Surface Area Calculated 1.54 m2 :22 Temperature 97.9 f Pulse 86 /min Comments: Pattern: Regular Respiration Rate 16 /min Comments: Pattern: Unlabored BP Systolic 102 mm[Hg] Comments: Patient Position: Sitting; Cuff Location: Left Arm; Cuff Size: Large BP Diastolic 60 mm[Hg] Comments: Patient Position: Sitting; Cuff Location: Left Arm; Cuff Size: Large Weight 140 lb Height 57 in Body Mass Index Calculated 30.3 kg/m2 Body Surface Area Calculated 1.55 m2 :16 Temperature 97.5 f Pulse 64 /min Comments: Pattern: Regular Respiration Rate 16 /min Comments: Pattern: Unlabored BP Systolic 92 mm[Hg] Comments: Patient Position: Sitting; Cuff Location: Left Arm; Cuff Size: Standard BP Diastolic 60 mm[Hg] Comments: Patient Position: Sitting; Cuff Location: Left Arm; Cuff Size: Standard Weight 137 lb Height 57 in Body Mass Index Calculated 29.65 kg/m2 Body Surface Area Calculated 1.53 m2 :54 Temperature 97.3 f Pulse 72 /min Comments: Pattern: Regular Respiration Rate 16 /min Comments: Pattern: Unlabored BP Systolic 120 mm[Hg] Comments: Patient Position: Sitting; Cuff Location: Left Arm; Cuff Size: Standard BP Diastolic 58 mm[Hg] Comments: Patient Position: Sitting; Cuff Location: Left Arm; Cuff Size: Standard Weight 138 lb Height 57 in Body Mass Index Calculated 29.86 kg/m2 Body Surface Area Calculated 1.54 m2 :16 Temperature 99.4 f Comments: Method: Oral Pulse 78 /min Comments: Pattern: Regular Respiration Rate 16 /min O2 SAT 98 % Comments: Room air BP Systolic 110 mm[Hg] Comments: Patient Position: Sitting; Cuff Location: Left Arm; Cuff Size: Standard BP Diastolic 68 mm[Hg] Comments: Patient Position: Sitting; Cuff Location: Left Arm; Cuff Size: Standard Weight 138.375 lb Height 57 in Body Mass Index Calculated 29.94 kg/m2 Body Surface Area Calculated 1.54 m2 :31 Temperature 98.3 f Pulse 74 /min Comments: Pattern: Regular Respiration Rate 16 /min Comments: Pattern: Unlabored BP Systolic 106 mm[Hg] Comments: Patient Position: Sitting; Cuff Location: Left Arm; Cuff Size: Standard BP Diastolic 62 mm[Hg] Comments: Patient Position: Sitting; Cuff Location: Left Arm; Cuff Size: Standard Weight 141 lb Height 57 in Body Mass Index Calculated 30.51 kg/m2 Body Surface Area Calculated 1.55 m2 :19 Pulse 79 /min Comments: Pattern: Regular Respiration Rate 16 /min Comments: Pattern: Unlabored O2 SAT 97 % Comments: Room air BP Systolic 115 mm[Hg] Comments: Patient Position: Sitting; Cuff Location: Left Arm; Cuff Size: Standard BP Diastolic 72 mm[Hg] Comments: Patient Position: Sitting; Cuff Location: Left Arm; Cuff Size: Standard Weight 142 lb Height 57 in Body Mass Index Calculated 30.73 kg/m2 Body Surface Area Calculated 1.55 m2 :24 Temperature 97.6 f Pulse 74 /min Comments: Pattern: Regular Respiration Rate 16 /min Comments: Pattern: Unlabored BP Systolic 102 mm[Hg] Comments: Patient Position: Sitting; Cuff Location: Left Arm; Cuff Size: Standard BP Diastolic 54 mm[Hg] Comments: Patient Position: Sitting; Cuff Location: Left Arm; Cuff Size: Standard Weight 142 lb Height 57 in Body Mass Index Calculated 30.73 kg/m2 Body Surface Area Calculated 1.55 m2 :18 Temperature 97.1 f Pulse 72 /min Comments: Pattern: Regular Respiration Rate 16 /min Comments: Pattern: Unlabored BP Systolic 108 mm[Hg] Comments: Patient Position: Sitting; Cuff Location: Left Arm; Cuff Size: Large BP Diastolic 60 mm[Hg] Comments: Patient Position: Sitting; Cuff Location: Left Arm; Cuff Size: Large Weight 142 lb Height 57 in Body Mass Index Calculated 30.73 kg/m2 Body Surface Area Calculated 1.55 m2 :20 Temperature 98.8 f Pulse 84 /min Comments: Pattern: Regular Respiration Rate 16 /min Comments: Pattern: Unlabored BP Systolic 96 mm[Hg] Comments: Patient Position: Sitting; Cuff Location: Left Arm; Cuff Size: Large BP Diastolic 60 mm[Hg] Comments: Patient Position: Sitting; Cuff Location: Left Arm; Cuff Size: Large Weight 142 lb Height 57 in Body Mass Index Calculated 30.73 kg/m2 Body Surface Area Calculated 1.55 m2 :18 Temperature 97.8 f Comments: Method: Oral Pulse 66 /min Comments: Pattern: Regular Respiration Rate 16 /min Comments: Pattern: Unlabored BP Systolic 112 mm[Hg] Comments: Patient Position: Sitting; Cuff Location: Left Arm; Cuff Size: Standard BP Diastolic 74 mm[Hg] Comments: Patient Position: Sitting; Cuff Location: Left Arm; Cuff Size: Standard Weight 141 lb Height 57 in Body Mass Index Calculated 30.51 kg/m2 Body Surface Area Calculated 1.55 m2 :11 Temperature 98.6 f Pulse 82 /min Comments: Pattern: Regular Respiration Rate 16 /min Comments: Pattern: Unlabored BP Systolic 110 mm[Hg] Comments: Patient Position: Sitting; Cuff Location: Left Arm; Cuff Size: Large BP Diastolic 64 mm[Hg] Comments: Patient Position: Sitting; Cuff Location: Left Arm; Cuff Size: Large Weight 141 lb Height 57 in Body Mass Index Calculated 30.51 kg/m2 Body Surface Area Calculated 1.55 m2 :58 BP Systolic 110 mm[Hg] Comments: Patient Position: Sitting BP Diastolic 66 mm[Hg] Comments: Patient Position: Sitting :32 Temperature 98.1 f Pulse 72 /min Comments: Pattern: Regular Respiration Rate 16 /min Comments: Pattern: Unlabored BP Systolic 90 mm[Hg] Comments: Patient Position: Sitting; Cuff Location: Left Arm; Cuff Size: Large BP Diastolic 42 mm[Hg] Comments: Patient Position: Sitting; Cuff Location: Left Arm; Cuff Size: Large Weight 139 lb Height 57 in Body Mass Index Calculated 30.08 kg/m2 Body Surface Area Calculated 1.54 m2 :52 Temperature 98 f Pulse 80 /min Comments: Pattern: Regular Respiration Rate 16 /min Comments: Pattern: Unlabored BP Systolic 98 mm[Hg] Comments: Patient Position: Sitting; Cuff Location: Left Arm; Cuff Size: Large BP Diastolic 60 mm[Hg] Comments: Patient Position: Sitting; Cuff Location: Left Arm; Cuff Size: Large Weight 136 lb Height 56.75 in Body Mass Index Calculated 29.69 kg/m2 Body Surface Area Calculated 1.52 m2 :13 Temperature 97.4 f Pulse 68 /min Comments: Pattern: Regular Respiration Rate 18 /min Comments: Pattern: Unlabored BP Systolic 100 mm[Hg] Comments: Patient Position: Sitting; Cuff Location: Left Arm; Cuff Size: Standard BP Diastolic 62 mm[Hg] Comments: Patient Position: Sitting; Cuff Location: Left Arm; Cuff Size: Standard Weight 132 lb :06 Temperature 97.4 f Pulse 72 /min Comments: Pattern: Regular Respiration Rate 18 /min Comments: Pattern: Unlabored BP Systolic 100 mm[Hg] Comments: Patient Position: Sitting; Cuff Location: Left Arm; Cuff Size: Standard BP Diastolic 62 mm[Hg] Comments: Patient Position: Sitting; Cuff Location: Left Arm; Cuff Size: Standard Weight 134 lb :45 Temperature 98 f Pulse 72 /min Comments: Pattern: Regular Respiration Rate 16 /min Comments: Pattern: Unlabored BP Systolic 120 mm[Hg] Comments: Patient Position: Sitting; Cuff Location: Left Arm; Cuff Size: Standard BP Diastolic 68 mm[Hg] Comments: Patient Position: Sitting; Cuff Location: Left Arm; Cuff Size: Standard Weight 135 lb :26 Temperature 99.1 f Comments: Method: Oral Pulse 77 /min Comments: Pattern: Regular Respiration Rate 16 /min Comments: Pattern: Unlabored BP Systolic 144 mm[Hg] Comments: Patient Position: Sitting; Cuff Location: Left Arm; Cuff Size: Large BP Diastolic 82 mm[Hg] Comments: Patient Position: Sitting; Cuff Location: Left Arm; Cuff Size: Large Weight 139 lb :08 Temperature 98 f Comments: Method: Undefined Pulse 68 /min Comments: Pattern: Regular Respiration Rate 16 /min Comments: Pattern: Undefined BP Systolic 104 mm[Hg] Comments: Patient Position: Sitting; Cuff Location: Left Arm; Cuff Size: Standard BP Diastolic 74 mm[Hg] Comments: Patient Position: Sitting; Cuff Location: Left Arm; Cuff Size: Standard Weight 140 lb Height 57 in Body Mass Index Calculated 30.3 kg/m2 Body Surface Area Calculated 1.55 m2 Head Circumference 0.00 cm :52 Temperature 98 f Comments: Method: Oral Pulse 75 /min Comments: Pattern: Regular Respiration Rate 18 /min Comments: Pattern: Unlabored BP Systolic 118 mm[Hg] Comments: Patient Position: Sitting; Cuff Location: Left Arm; Cuff Size: Standard BP Diastolic 80 mm[Hg] Comments: Patient Position: Sitting; Cuff Location: Left Arm; Cuff Size: Standard Weight 143.5625 lb Height 59 in Body Mass Index Calculated 29 kg/m2 Body Surface Area Calculated 1.6 m2 Head Circumference 0.00 cm :17 Temperature 98.1 f Comments: Method: Undefined Pulse 60 /min Comments: Pattern: Regular Respiration Rate 16 /min Comments: Pattern: Unlabored BP Systolic 114 mm[Hg] Comments: Patient Position: Sitting; Cuff Location: Right Arm; Cuff Size: Standard BP Diastolic 62 mm[Hg] Comments: Patient Position: Sitting; Cuff Location: Right Arm; Cuff Size: Standard Weight 143.5625 lb Height 59 in Body Mass Index Calculated 29 kg/m2 Body Surface Area Calculated 1.6 m2 Head Circumference 0.00 cm :19 Temperature 98.8 f Comments: Method: Undefined Pulse 68 /min Comments: Pattern: Regular Respiration Rate 16 /min Comments: Pattern: Undefined BP Systolic 108 mm[Hg] Comments: Patient Position: Sitting; Cuff Location: Right Arm; Cuff Size: Large BP Diastolic 62 mm[Hg] Comments: Patient Position: Sitting; Cuff Location: Right Arm; Cuff Size: Large Weight 148 lb Height 57.5 in Body Mass Index Calculated 31.47 kg/m2 Body Surface Area Calculated 1.59 m2 Head Circumference 0.00 cm :36 Temperature 98.1 f Comments: Method: Undefined Pulse 80 /min Comments: Pattern: Regular Respiration Rate 16 /min Comments: Pattern: Undefined BP Systolic 102 mm[Hg] Comments: Patient Position: Sitting; Cuff Location: Right Arm; Cuff Size: Standard BP Diastolic 68 mm[Hg] Comments: Patient Position: Sitting; Cuff Location: Right Arm; Cuff Size: Standard Weight 149 lb Height 58.25 in Body Mass Index Calculated 30.87 kg/m2 Body Surface Area Calculated 1.61 m2 Head Circumference 0.00 cm :11 Temperature 97.8 f Comments: Method: Oral Pulse 72 /min Comments: Pattern: Regular Respiration Rate 18 /min Comments: Pattern: Unlabored BP Systolic 102 mm[Hg] Comments: Patient Position: Sitting; Cuff Location: Left Arm; Cuff Size: Standard BP Diastolic 60 mm[Hg] Comments: Patient Position: Sitting; Cuff Location: Left Arm; Cuff Size: Standard Weight 148 lb Height 58.25 in Body Mass Index Calculated 30.67 kg/m2 Body Surface Area Calculated 1.61 m2 Head Circumference 0.00 cm :14 Temperature 97 f Comments: Method: Oral Pulse 76 /min Comments: Pattern: Regular Respiration Rate 16 /min Comments: Pattern: Unlabored BP Systolic 108 mm[Hg] Comments: Patient Position: Sitting; Cuff Location: Left Arm; Cuff Size: Standard BP Diastolic 62 mm[Hg] Comments: Patient Position: Sitting; Cuff Location: Left Arm; Cuff Size: Standard Weight 147 lb Height 0 in Head Circumference 0.00 cm :07 Temperature 98.8 f Comments: Method: Oral Pulse 96 /min Comments: Pattern: Regular Respiration Rate 16 /min Comments: Pattern: Unlabored BP Systolic 116 mm[Hg] Comments: Patient Position: Sitting; Cuff Location: Right Arm; Cuff Size: Large BP Diastolic 68 mm[Hg] Comments: Patient Position: Sitting; Cuff Location: Right Arm; Cuff Size: Large Weight 143 lb Height 0 in Head Circumference 0.00 cm :08 Pulse 100 /min Comments: Pattern: Regular Respiration Rate 16 /min Comments: Pattern: Unlabored BP Systolic 158 mm[Hg] Comments: Patient Position: Sitting; Cuff Location: Left Arm; Cuff Size: Standard BP Diastolic 82 mm[Hg] Comments: Patient Position: Sitting; Cuff Location: Left Arm; Cuff Size: Standard Weight 148 lb Height 0 in Head Circumference 0.00 cm :26 Temperature 98.3 f Comments: Method: Oral Pulse 98 /min Comments: Pattern: Regular Respiration Rate 16 /min Comments: Pattern: Undefined BP Systolic 142 mm[Hg] Comments: Patient Position: Sitting; Cuff Location: Left Arm; Cuff Size: Standard BP Diastolic 88 mm[Hg] Comments: Patient Position: Sitting; Cuff Location: Left Arm; Cuff Size: Standard Weight 144 lb Height 0 in Head Circumference 0.00 cm :19 Temperature 97.7 f Comments: Method: Oral Pulse 88 /min Comments: Pattern: Regular Respiration Rate 20 /min Comments: Pattern: Unlabored BP Systolic 112 mm[Hg] Comments: Patient Position: Sitting; Cuff Location: Left Arm; Cuff Size: Standard BP Diastolic 70 mm[Hg] Comments: Patient Position: Sitting; Cuff Location: Left Arm; Cuff Size: Standard Weight 146 lb Height 0 in Head Circumference 0.00 cm :14 Temperature 98 f Comments: Method: Oral Pulse 92 /min Comments: Pattern: Regular Respiration Rate 16 /min Comments: Pattern: Unlabored BP Systolic 110 mm[Hg] Comments: Patient Position: Sitting; Cuff Location: Left Arm; Cuff Size: Standard BP Diastolic 66 mm[Hg] Comments: Patient Position: Sitting; Cuff Location: Left Arm; Cuff Size: Standard Weight 146 lb Height 57.75 in Body Mass Index Calculated 30.78 kg/m2 Body Surface Area Calculated 1.59 m2 Head Circumference 0.00 cm :31 Temperature 97.6 f Comments: Method: Oral Pulse 86 /min Comments: Pattern: Regular Respiration Rate 16 /min Comments: Pattern: Undefined BP Systolic 118 mm[Hg] Comments: Patient Position: Sitting; Cuff Location: Undefined; Cuff Size: Undefined BP Diastolic 78 mm[Hg] Comments: Patient Position: Sitting; Cuff Location: Undefined; Cuff Size: Undefined Weight 148 lb Height 0 in Head Circumference 0.00 cm :02 Temperature 98.1 f Comments: Method: Oral Pulse 84 /min Comments: Pattern: Regular Respiration Rate 16 /min Comments: Pattern: Unlabored BP Systolic 136 mm[Hg] Comments: Patient Position: Sitting; Cuff Location: Left Arm; Cuff Size: Standard BP Diastolic 74 mm[Hg] Comments: Patient Position: Sitting; Cuff Location: Left Arm; Cuff Size: Standard Weight 149.1875 lb Height 57.25 in Body Mass Index Calculated 32 kg/m2 Body Surface Area Calculated 1.59 m2 Head Circumference 0.00 cm Results Date Description Value Details :22 Throat Culture (01143) Comments: PATIENT NOT FASTINGPERFORMED BY: PERRY [facility] Tnrogw2932 [facility] [id number] Information: SRC: Result 1 RRF (Normal) Comments: Routine respiratory fred Upper Respiratory Culture Final report (Normal) 86-Tcr-188088:19 HgA1C , Office (38956) HgA1C , Office 5.5 % (Normal) Range: 4.6 - 7.1 95-Nza-217536:19 Blood Glucose , Office (50571) Blood Glucose , Office 141 (Normal) :15 CBC W/Diff, Automated Comments: [facility] [address] [place] [place], [address] Absolute Lymph 2.76 {X10_3/ul} (Normal) Range: 0.83-4.51 Absolute Neut 3.6 {X10_3/uL} (Normal) Range: 2.0-7.7 IM GRAN % 0.300 % (Normal) Range: 0.0-0.9 Comments: IG% - Immature Granulocytes (promyelocytes, myelocytes andmetamyelocytes) > 1% indicates that a LEFT SHIFT is Present. BASO% 1.3 % (Abnormal) Range: 0-1 EO% 6.5 % (Abnormal) Range: 0-5 MONO% 6.7 % (Normal) Range: 0-10 LY% 36.8 % (Normal) Range: 19-41 NEUT% 48.4 % (Normal) Range: 47-70 MPV 10.1 fL (Normal) Range: 6.2-12.0 PLT 374 K/mm3 (Normal) Range: 150-450 RDW SD 54.9 fL (Abnormal) Range: 35.1-43.9 RDW CV 17.0 % (Abnormal) Range: 11.6-14.6 MCHC 31.2 {g/gl} (Abnormal) Range: 32-36 MCH 27.7 pg (Normal) Range: 27.0-32.0 MCV 88.6 fL (Normal) Range: 81-99 HCT 33.3 % (Abnormal) Range: 37-47 HGB 10.4 g/dL (Abnormal) Range: 12.0-15.0 RBC 3.76 {M/mm3} (Abnormal) Range: 4.2-5.4 WBC 7.5 K/mm3 (Normal) Range: 4.4-11.0 00-Zeg-05548:15 Comprehensive Metabolic Profil Comments: [facility] [address] [place], [place], [id number] GAP 8 (Normal) Range: 5-15 CO2 25.0 mmol/L (Normal) Range: 21.0-32.0 CL 106 mmol/L (Normal) Range: 98-107 K 4.1 mmol/L (Normal) Range: 3.5-5.1 NA 139 mmol/L (Normal) Range: 136-145 T BILI 0.60 mg/dL (Normal) Range: 0.20-1.00 ALT 29 U/L (Normal) Range: 13-56 ALK P 88 U/L (Normal) Range: 45-117 AST 30 U/L (Normal) Range: 15-37 CA 8.7 mg/dL (Normal) Range: 8.5-10.1 A/G 0.7 {RATIO} (Abnormal) Range: 0.9-2.4 GLOB 4.6 g/dL (Abnormal) Range: 2.2-4.2 ALB 3.4 g/dL (Normal) Range: 3.2-5.0 T PROT 8.0 g/dL (Normal) Range: 6.4-8.2 BUN/CRE 15.6 {RATIO} (Normal) Range: 10-20 EST GFR - AA 74 mL/min (Normal) Comments: GFR Calc EST GFR 61 mL/min (Normal) Comments: Non- GFR Calc CREAT,SERUM 0.96 mg/dL (Normal) Range: 0.55-1.02 Comments: The validity of the calculated GFR AND GFRAA in patients over70 years has not been determined. Clinical correlation isessential. BUN 15 mg/dL (Normal) Range: 7-18 GLU 101 mg/dL (Normal) Range: 74-106 Comments: Fasting Glucose result from 100 to 125 mg/dLsuggests IMPAIRED HOMEOSTASIS per A.D.A. criteria.Please note revised GLUCOSE reference range euxjcluzy80/02/2018. 82-Pgu-67958:15 Lipid Profile Comments: [facility] [address] [place], [address] VLDL 34 mg/dL (Normal) Range: 5-40 LDL 104 mg/dL (Normal) Range: 0-130 HDL 58 mg/dL (Normal) Comments: The drugs N-Acetylcysteine and Metamizole may falselydepress this assay. Reference Range HDL <40 mg/dL Low HDL Cholesterol HDL >or= 60 mg/dL High HDL Cholesterol TRIG 168 mg/dL (Normal) Comments: The drugs N-Acetylcysteine and Metamizole may falselydepress this assay.Serum Triglycerides Reference Interval Normal <150 mg/dL Borderline high 150 - 199 mg/dL High 200 - 499 mg/dL Very High > or = 500 mg/dL CHOL 196 mg/dL (Normal) Comments: <200 mg/dL Desirable 200-240 mg/dL Borderline >240 mg/dL High Risk 65-Zlg-53501:15 Microalb:Creat Ratio,Random UR Comments: PT UTO TOOK CONTAINER HOME WILL [facility] TODAY[facility] [address] [place], [place], [id number] MALB:CREAT 6.2 {mg/g_CRE} (Normal) MICROALBUMIN,UR 9.9 mg/L (Normal) UR CREAT 159.00 mg/dL (Normal) 22-Gte-64684:15 Thyroid Stim Hormone (TSH) Comments: [facility] [address] [place], [address] TSH 1.77 {uIU/mL} (Normal) Range: 0.358-3.74 69-Toi-12668:15 Urinalysis, Complete Comments: PT DIANAO TOOK CONTAINER HOME WILL RETURN TODAYHow was Urine Obtained? [facility] [address] [place], [id number] MUCUS, URINE 0 SEEN {/hpf} (Normal) BACTERIA 1+ {/hpf} (Normal) SQUAM EPI 0-5 SEEN {/hpf} (Normal) Range: 5-10 RBC-UA 0 SEEN {/hpf} (Normal) Range: 0-5 WBC 10-25 SEEN {/hpf} (Normal) Range: 0-5 LEUK ESTERASE 100 /ul (Abnormal) OCCULT BLOOD-UR Negative /ul (Normal) NITRITE UR Negative (Normal) UROBILI Normal mg/dL (Normal) PROT DIPSTX Negative mg/dL (Normal) pH UR 5.0 (Normal) Range: 5.0 - 8.0 SP.GR. DIPSTX 1.020 (Normal) Range: 1.002-1.030 KETONE UR Negative mg/dL (Normal) BILIRUBIN URINE Negative mg/dL (Normal) GLUCOSE, UR Normal mg/dL (Normal) CLARITY Sl. Cloudy (Normal) COLOR Yellow (Normal) 98-Uea-19291:15 Vitamin D,25 Hydroxy Comments: [facility] [address] [place], [id number] Vitamin D 25-OH 18.3 ng/mL (Abnormal) Range: 29.95-100.01 Comments: Vitamin D 25(OH) Status Range Deficiency <20 ng/mL (50nmol/L) Insuffciency 20 - 30 ng/mL (50 - 75 nmol/L) Sufficiency 30 - 100 ng/mL (75 - 250 nmol/L) Toxicity >100 ng/mL (>250 nmol/L) 70-Zba-526153:56 Soluble Transferrin Comments: PATIENT NOT FASTINGPERFORMED BY: CB [facility] Dymhnn3284 [facility] [id number] BY: [facility] [address] [id number] Receptor (28709) Soluble Transferrin Receptor 27.3 nmol/L (Normal) Range: 12.2-27.3 11-Dqe-552977:56 SPEP (47190) Comments: PATIENT NOT FASTINGPERFORMED BY: [facility] Ypmcaf7073 [facility] [id number] BY: [address] [id number] PDF . (Normal) Please note: SPRCS (Normal) Comments: Protein electrophoresis scan will follow via computer, mail, orcourier delivery. A/G Ratio 0.9 (Normal) Range: 0.7-1.7 Globulin, Total 4.0 g/dL (Abnormal) Range: 2.2-3.9 M-Isaias Not Observed g/dL (Normal) Gamma Globulin 1.8 g/dL (Normal) Range: 0.4-1.8 Beta Globulin 1.2 g/dL (Normal) Range: 0.7-1.3 Ioeqg-0-Xpfrsuzw 0.7 g/dL (Normal) Range: 0.4-1.0 Msdqf-9-Bfyultee 0.3 g/dL (Normal) Range: 0.0-0.4 Albumin 3.5 g/dL (Normal) Range: 2.9-4.4 Protein, Total 7.5 g/dL (Normal) Range: 6.0-8.5 12-Rta-977704:56 UPEP (58080) Comments: PATIENT NOT FASTINGPERFORMED BY: [facility] Dowzke9805 [facility] [id number] BY: [address] [id number] PDF . (Normal) Please note: SPRCS (Normal) Comments: Protein electrophoresis scan will follow via computer, mail, orcourier delivery. M-Isaias, % Not Observed % (Normal) Gamma Globulin, U 13.3 % (Normal) Beta Globulin, U 34.4 % (Normal) Thnvn-1-Xfegywds, U 10.6 % (Normal) Htbmh-8-Qldpuqvq, U 3.5 % (Normal) Albumin, U 38.2 % (Normal) Protein,Total,Urine 9.2 mg/dL (Normal) 33-Zzd-440667:56 BUZZ TEST, DIRECT Comments: PATIENT NOT FASTINGPERFORMED BY: [place] [id number] [facility] [id number] BY: [address] [id number] (49438) Buzz', Direct Negative (Normal) 14-Llm-461622:56 FOLIC ACID SERUM (49938) Comments: PATIENT NOT FASTINGPERFORMED BY: [place] [id number] [facility] [id number] BY: [address] [id number] Folate (Folic Acid), Serum 13.1 ng/mL (Normal) Comments: A serum folate concentration of less than 3.1 ng/mL isconsidered to represent clinical deficiency. 11-Ajk-047480:56 Methymalonic Acid, Serum Comments: PATIENT NOT FASTINGPERFORMED BY: [address] [id number] BY: [address] [id number] (33461) Disclaimer: SPRCS (Normal) Comments: This test was developed and its performance characteristicsdetermined by [email or web address]. It has not been cleared or approvedby the Food and Drug Administration. Methylmalonic Acid, Serum 227 nmol/L (Normal) Range: 0-378 48-Krt-785673:56 VITAMIN B-12 Comments: PATIENT NOT FASTINGPERFORMED BY: [place] [id number] [facility] [id number] BY: [address] [id number] (CYANOCOBALAMIN) (06759) Vitamin B12 663 pg/mL (Normal) Range: 232-1245 16-Tbf-600041:56 RETICULOCYTE COUNT MANUL Comments: PATIENT NOT FASTINGPERFORMED BY: [place] [id number] [facility] [id number] BY: [address] [id number] (86839) Reticulocyte Count 1.8 % (Normal) Range: 0.6-2.6 73-Mnt-641780:56 LDH (LD) (LACTATE Comments: PATIENT NOT FASTINGPERFORMED BY: [facility]6370 [facility] [id number] BY: [address] [id number] DEHYDROGENASE) (63963) LDH 218 [iU]/L (Normal) Range: 119-226 82-Tsj-273512:56 IRON BINDING CAPACITY Comments: PATIENT NOT FASTINGPERFORMED BY: [place] [id number] [facility] [id number] BY: [address] [id number] (TIBC) (83943) Iron Saturation 17 % (Normal) Range: 15-55 Iron 69 ug/dL (Normal) Range: 27-139 UIBC 338 ug/dL (Normal) Range: 118-369 Iron Bind.Cap.(TIBC) 407 ug/dL (Normal) Range: 250-450 66-Dye-399551:56 FERRITIN (57407) Comments: PATIENT NOT FASTINGPERFORMED BY: [place] [id number] [facility] [id number] BY: [address] [id number] Ferritin, Serum 21 ng/mL (Normal) Range: 15-150 61-Wrb-923476:56 HAPTOGLOBIN (92788) Comments: PATIENT NOT FASTINGPERFORMED BY: [place] [id number] [facility] [id number] BY: [address] [id number] Haptoglobin 89 mg/dL (Normal) Range: 34-200 64-Ssw-718065:56 CBC, PLATELETS & AUT DIFF Comments: PATIENT NOT FASTINGPERFORMED BY: [facility]6370 [facility] [id number] BY: [address] [id number] (78069) Immature Grans (Abs) 0.0 {x10E3/uL} (Normal) Range: 0.0-0.1 Immature Granulocytes 0 % (Normal) Baso (Absolute) 0.1 {x10E3/uL} (Normal) Range: 0.0-0.2 Eos (Absolute) 0.3 {x10E3/uL} (Normal) Range: 0.0-0.4 Monocytes(Absolute) 0.5 {x10E3/uL} (Normal) Range: 0.1-0.9 Lymphs (Absolute) 2.9 {x10E3/uL} (Normal) Range: 0.7-3.1 Neutrophils (Absolute) 4.3 {x10E3/uL} (Normal) Range: 1.4-7.0 Basos 1 % (Normal) Eos 4 % (Normal) Monocytes 6 % (Normal) Lymphs 36 % (Normal) Neutrophils 53 % (Normal) Platelets 387 {x10E3/uL} (Abnormal) Range: 150-379 RDW 16.8 % (Abnormal) Range: 12.3-15.4 MCHC 33.3 g/dL (Normal) Range: 31.5-35.7 MCH 28.6 pg (Normal) Range: 26.6-33.0 MCV 86 fL (Normal) Range: 79-97 Hematocrit 30.9 % (Abnormal) Range: 34.0-46.6 Hemoglobin 10.3 g/dL (Abnormal) Range: 11.1-15.9 RBC 3.60 {x10E6/uL} (Abnormal) Range: 3.77-5.28 WBC 8.1 {x10E3/uL} (Normal) Range: 3.4-10.8 :07 HgA1C , Office (25614) HgA1C , Office 5.6 % (Normal) Range: 4.6 - 7.1 :07 Blood Glucose , Office (01489) Blood Glucose , Office 170 (Normal) :36 CBC W/Diff, Automated Comments: [facility] [address] [place], [place], [id number] Absolute Lymph 3.43 {X10_3/ul} (Normal) Range: 0.83-4.51 Absolute Neut 5.0 {X10_3/uL} (Normal) Range: 2.0-7.7 IM GRAN % 0.500 % (Normal) Range: 0.0-0.9 Comments: IG% - Immature Granulocytes (promyelocytes, myelocytes andmetamyelocytes) > 1% indicates that a LEFT SHIFT is Present. BASO% 0.7 % (Normal) Range: 0-1 EO% 5.5 % (Abnormal) Range: 0-5 MONO% 6.4 % (Normal) Range: 0-10 LY% 35.3 % (Normal) Range: 19-41 NEUT% 51.6 % (Normal) Range: 47-70 MPV 9.9 fL (Normal) Range: 6.2-12.0 PLT 361 K/mm3 (Normal) Range: 150-450 RDW SD 56.7 fL (Abnormal) Range: 35.1-43.9 RDW CV 17.4 % (Abnormal) Range: 11.6-14.6 MCHC 32.0 {g/gl} (Normal) Range: 32-36 MCH 28.8 pg (Normal) Range: 27.0-32.0 MCV 90.1 fL (Normal) Range: 81-99 HCT 34.4 % (Abnormal) Range: 37-47 HGB 11.0 g/dL (Abnormal) Range: 12.0-15.0 RBC 3.82 {M/mm3} (Abnormal) Range: 4.2-5.4 WBC 9.7 K/mm3 (Normal) Range: 4.4-11.0 52-Jbi-75667:36 Comprehensive Metabolic Profil Comments: PLEASE ADD PREALBUMIN TO LIPID,TSH,CMP M86[facility]kxtUniversity [facility] [address]dwjlb[address] [place], [place], [address] GAP 10 (Normal) Range: 5-15 CO2 24.0 mmol/L (Normal) Range: 21.0-32.0 CL 106 mmol/L (Normal) Range: 98-107 K 4.3 mmol/L (Normal) Range: 3.5-5.1 NA 140 mmol/L (Normal) Range: 136-145 T BILI 0.80 mg/dL (Normal) Range: 0.20-1.00 ALT 30 U/L (Normal) Range: 12-78 ALK P 96 U/L (Normal) Range: 45-117 AST 29 U/L (Normal) Range: 15-37 CA 8.7 mg/dL (Normal) Range: 8.5-10.1 A/G 0.8 {RATIO} (Abnormal) Range: 0.9-2.4 GLOB 4.4 g/dL (Abnormal) Range: 2.2-4.2 ALB 3.3 g/dL (Abnormal) Range: 3.4-5.0 Comments: Please note revised Albumin AND Globulin reference rangeeffective 2017. T PROT 7.7 g/dL (Normal) Range: 6.4-8.2 BUN/CRE 18.1 {RATIO} (Normal) Range: 10-20 EST GFR - AA 67 mL/min (Normal) Comments: GFR Calc EST GFR 55 mL/min (Abnormal) Comments: Non- GFR Calc CREAT,SERUM 1.05 mg/dL (Abnormal) Range: 0.55-1.02 Comments: The validity of the calculated GFR AND GFRAA in patients over70 years has not been determined. Clinical correlation isessential. BUN 19 mg/dL (Abnormal) Range: 7-18 GLU 89 mg/dL (Normal) Range: 70-110 :36 Lipid Profile Comments: PLEASE ADD PREALBUMIN TO LIPID,TSH,[address] [place], [address] VLDL 21 mg/dL (Normal) Range: 5-40 LDL 72 mg/dL (Normal) Range: 0-130 HDL 66 mg/dL (Normal) Comments: The drugs N-Acetylcysteine and Metamizole may falselydepress this assay. Reference Range HDL <40 mg/dL Low HDL Cholesterol HDL >or= 60 mg/dL High HDL Cholesterol TRIG 105 mg/dL (Normal) Comments: The drugs N-Acetylcysteine and Metamizole may falselydepress this assay.Serum Triglycerides Reference Interval Normal <150 mg/dL Borderline high 150 - 199 mg/dL High 200 - 499 mg/dL Very High > or = 500 mg/dL CHOL 159 mg/dL (Normal) Comments: <200 mg/dL Desirable 200-240 mg/dL Borderline >240 mg/dL High Risk :36 Prealbumin Comments: PLEASE ADD PREALBUMIN TO LIPID,TSH,[address] [place], [place], [id number] PREALBUMIN 30.5 mg/dL (Normal) Range: 20.0-40.0 :36 Thyroid Stim Hormone (TSH) Comments: PLEASE ADD PREALBUMIN TO LIPID,TSH,CMP [facility]50[facility] [address] [place], [address] TSH 2.39 {uIU/mL} Range: 0.358-3.74 (Normal) :3 ASPIRATION (SLIDES ONLY) See Note (Normal) Comments: [facility] [address] [place], [address] 0 Comments: Patient: LISETTE CRISOSTOMO : 1950 (66/F) Acct Num: [id number] Phys: George Terrazas MD Unit Num: [id number] Loc: LABSPEC Specimen: [id number] Received: 09/20/161606 Spec Ty pe: ASPIRATION TISSUES TISSUES: ADDENDUM Addendum Number 1 This addendum is added to incorporate an outside pathology consultation report. The case was examined at [facility] (#[id number]) and the following diagnosis was rendered. Right thyroid nodule, fine needle aspiration: Positive for malignant cells. Metastatic carcinoma, consistent with lung prim yayo. Please see complete above mentioned consultation report in EMR Addendum Signed Mariano Contreras 10/05/16 <signature on file> COMMENT Immediate cytologic evaluation to determine adequacy is not applicable. Numerous macrophages are noted consistent with focal cystic change. In the background, numerous benign follicul ar cells and colloid are also noted. Please make reference to previous specimen ([id number]) right cervical lymph node,FNA with diagnosis of metastatic carcinoma. Correlation with clinical, radiologi c findings and appropriate follow up are necessary. Case has been reviewed in consultation with Dr. Reina who concurs with the above diagnosis. IDC:AM CYTOLOGY GROSS Received are 12 smears lab eled with the patient's name and designated per the requisition as right thyroid. Submitted for staining. / RY:cc 09/21/16 TC:0 CPT: 55617 CYTOLOGY STUDY Slides are reviewed. DIAGNOSIS CYTOLOGY Right thyroid nodule, ultrasound-guided FNA (smears): Malignant cells present derived from papillary thyroid carcinoma. SJ:lars 09/24/16 HEADER OPERATION: Ultrasound guided righ t thyroid FNA PRE-OP DIAGNOSIS: Right thyroid nodule TISSUE SUBMITTED: Right thyroid (12 slides) Signed Mariano Ben 09/24/16 <signature on file> 5-Kwt-[id number]:50 CBC W/Diff, Auto - EPLAB Comments: Order Date: 03/29/16Order Info: [id number] - *CBC w/Diff - oncology ONLYAt [facility] Outpatient [facility], [place] Medical Oncologypatients receive CBC w/auto Differential ONLY. Physicianwill place an order fo Only r a manual differential or Pathologistreview at his discretion. [facility] OUTPATIENT [facility]. [address] [place] [address] [address] INFECTION PREVENTION COORDINATOR: JASBIR REINA DO PH:[phone] [facility] [address] [place], [place], [id number] Absolute Lymph 1.92 {X10_3/uL} (Normal) Range: 0.83-4.51 Absolute Neut 5.3 {X10_3/uL} (Normal) Range: 2.0-7.7 BASO% 0.6 % (Normal) Range: 0-1 EO% 11.2 % (Abnormal) Range: 0-5 MONO% 7.2 % (Normal) Range: 0-10 LY% 21.5 % (Normal) Range: 19-41 NEUT% 59.5 % (Normal) Range: 47-70 MPV 6.8 fL (Normal) Range: 6.2-12.0 PLT 373 K/mm3 (Normal) Range: 150-450 RDW 13.4 % (Normal) Range: 11.6-14.6 MCHC 34.0 g/dL (Normal) Range: 32-36 MCH 30.6 pg (Normal) Range: 27.0-32.0 MCV 90.0 fL (Normal) Range: 81-99 HCT 35.0 % (Abnormal) Range: 37-47 HGB 11.9 g/dL (Abnormal) Range: 12.0-15.0 RBC 3.89 {M/mm3} (Abnormal) Range: 4.2-5.4 WBC 8.9 K/mm3 (Normal) Range: 4.4-11.0 9-Vlm-425925:50 Comprehensive Metabolic Profil Comments: Order Date: 03/29/16Order Info: [id number] - *CMP Complete Metabolic PanelOrder Info: [id number] - *Uric Acid BloodOrder Info: [id number] - *LDH -LDH (Lactate Dehydrogenase)Serial Specimen #1, #2 or #3? 1W[facility] [address] [place], [place], [address] GAP 5 (Normal) Range: 5-15 CO2 27.0 mmol/L (Normal) Range: 21.0-32.0 CL 104 mmol/L (Normal) Range: 98-107 K 4.2 mmol/L (Normal) Range: 3.5-5.1 NA 136 mmol/L (Normal) Range: 136-145 T BILI 0.60 mg/dL (Normal) Range: 0.20-1.00 ALT 12 U/L (Normal) Range: 12-78 ALK P 129 U/L (Abnormal) Range: 45-117 AST 15 U/L (Normal) Range: 15-37 CA 8.6 mg/dL (Normal) Range: 8.5-10.1 A/G 0.6 {RATIO} (Abnormal) Range: 0.9-2.4 GLOB 5.4 g/dL (Abnormal) Range: 2.3-3.5 ALB 3.3 g/dL (Abnormal) Range: 3.4-5.0 T PROT 8.7 g/dL (Abnormal) Range: 6.4-8.2 BUN/CRE 16.3 {RATIO} (Normal) Range: 10-20 EST GFR - AA 101 mL/min (Normal) Comments: GFR Calc EST GFR 84 mL/min (Normal) Comments: Non- GFR Calc CREAT,SERUM 0.73 mg/dL (Normal) Range: 0.55-1.02 Comments: The validity of the calculated GFR AND GFRAA in patients over70 years has not been determined. Clinical correlation isessential. BUN 12 mg/dL (Normal) Range: 7-18 GLU 98 mg/dL (Normal) Range: 70-110 :50 CHI + Protein Elect, Serum Comments: Order Date: 03/29/16Order Info: [id number] - *IMEL CHI + Prot Elec, Serum 1495Order Info: [id number] - *KAPLAMBDA - Crowell Lamda Light ChainsIs Patient Fasting? [facility] (refer to report for specific site)refe r to report for address and phone number NOTE: Comment (Normal) Comments: Protein electrophoresis scan will follow via computer,mail, or assistant manager delivery. CHI RESULT,S Comment (Normal) Comments: No monoclonality detected. A/G RATIO 0.9 (Normal) Range: 0.7-1.7 GLOBULIN, TOTAL 4.2 g/dL (Abnormal) Range: 2.2-3.9 M-SPIKE g/dL (Normal) Comments: Not Observed GAMMA GLOBULIN 1.9 g/dL (Abnormal) Range: 0.4-1.8 BETA GLOBULIN 1.2 g/dL (Normal) Range: 0.7-1.3 CBIVU-7-WZDF 0.9 g/dL (Normal) Range: 0.4-1.0 CDXAZ-7-ZHRF 0.3 g/dL (Normal) Range: 0.0-0.4 ALBUMIN 3.7 g/dL (Normal) Range: 2.9-4.4 IMMUNOGL M 511 mg/dL (Abnormal) Range: 26-217 IMMUNO A 252 mg/dL (Normal) Range: 87-352 IMMUNO G 1574 mg/dL (Normal) Range: 700-1600 PROTEIN,TOTAL 7.9 g/dL (Normal) Range: 6.0-8.5 :50 Crowell Lambda Light Chains Comments: Order Date: 03/29/16Order Info: [id number] - *IMEL CHI + Prot Elec, Serum 1495Order Info: [id number] - *KAPLAMBDA - Crowell Lamda Light ChainsIs Patient Fasting? [facility] (refer to report for specific site)refe r to report for address and phone number KAPPA/LAMBDA % 1.06 (Normal) Range: 0.26-1.65 Comments: Performed at: [place] [id number] [place], [place] [id number] Director: Jan Wilcox PhD, Phone: [phone] FR LAMBDA LT CH 31.7 mg/L (Abnormal) Range: 5.7-26.3 Comments: Please note reference interval change FR KAPPA LT CHN 33.6 mg/L (Abnormal) Range: 3.3-19.4 Comments: Please note reference interval change :50 LDH 181 U/L (Normal) Comments: Order Date: 03/29/16Order Info: [id number] - *CMP Complete Metabolic PanelOrder Info: [id number] - *Uric Acid BloodOrder Info: 2532-0 - *LDH -LDH (Lactate Dehydrogenase)Serial Specimen #1, #2 or #3? [address] [place] [address] [place], [place], [phone] Range: 84-246 :50 Uric Acid Comments: Order Date: 03/29/16Order Info: [id number] - *CMP Complete Metabolic PanelOrder Info: [id number] - *Uric Acid BloodOrder Info: [id number] - *LDH -LDH (Lactate Dehydrogenase)Serial Specimen #1, #2 or #3? [address] [place] [address] [place], [place], [address] URIC 7.1 mg/dL Range: 2.6-6.0 (Abnormal) Comments: The drugs N-Acetylcysteine and Metamizole may falsely deressthis assay. ASPIRATION (SLIDES ONLY) See Note (Normal) Comments: [facility] [address] [facility] [address] [place], [place], [address] 70:00 Comments: Patient: LISETTE CRISOSTOMO : 1950 (66/F) Acct Num: [id number] Phys: Mk SALVADOR,George Unit Num: [id number] Loc: LABSPEC Specimen: [id number] Received: 09/12/16 134 Spec Ty pe: ASPIRATION TISSUES TISSUES: ADDENDUM Addendum Number 1 This addendum is added to incorporate an outside pathology consultation report. The case was examined at [facility] (#[id number]) and the following diagnosis was rendered. Right cervical lymph nodes, fine needle aspiration: Positive for malignant cells. Metastatic carcinoma, consistent with miguel g primary. Please see complete above mentioned consultation report in EMR Addendum Signed Jasbir [facility] 10/05/16 <signature on fi le> COMMENT Immediate cytologic evaluation to determine adequacy is not applicable. Immunohistochemistry ([id number]) supports the above diagnosis. An excisional/incisional biopsy is recommen ded for further classification. Case has been reviewed in consultation with Dr. Contreras who concurs with the abovediagnosis. IDC:SJ CYTOLOGY GROSS Received are 12 smears labeled with the patient 's name and designated per the requisition as FNA right cervical lymph node. Submitted for staining. 09/12/16 TC:0 CPT: 75397 CYTOLOGY STUDY Slides are reviewed. DIAGNOSIS CYTOLOGY Rig ht cervical lymph nodes, fine needle aspiration (smears): Metastatic carcinoma. AM:lars 09/13/16 HEADER OPERATION: Ultrasound-guided fine needle aspiration right cervical lymph node PRE-OP DIAGNOSIS: Enlarged lymph nodes TISSUE SUBMITTED: FNA right cervical lymph nodes (12 slides) Signed [facility] 09/14/16 <signature on file> IMMUNOHISTOCHEMISTRY See Note (Normal) Comments: [facility] [address] [place], [address] 70:00 Comments: Patient: LISETTE CRISOSTOMO : 1950 (66/F) Acct Num: [id number] Phys: George Terrazas MD Unit Num: [id number] Loc: LABSPEC Specimen: [id number] Received: 09/13/16 - 1228 Spec T ype: IMMUNO TISSUES TISSUES: SPECIMEN INFORMATION: Tissue Source: FNA right cervical lymph nodes Clinical Info: Enlarged lymph nodes Specimen Number: [id number] CPT code: 98412, 13954 x3 METHODOLOGY: Deparaffinized sections of prefer/formalin-fixed tissue or PAP/DQ stained slides are incubated with monoclonal/polyclonal antibodies/oligonucleotide probes. Localization is made via biotin free immunoperoxidase method. Appropriate controls are performed and reacted as expected. Results on target cell population are indicated in the following table: RESULTS: ANTIBOD Y / CLONE RESULT S-100 (4C4.9) negative AE1-3 (AE1/AE3/PCK26) positive Thyro (2H11+6E1) negative CD45 (RP2/18) negative These tests were developed and their performance characteristics determined by [facility]. They may not have been cleared or approved by the U.S. Food and Drug Administration . The FDA has determined that such clearance or approval is not necessary. INTERPRETATION: Right cervical lymph nodes, fine needle aspiration: Metastatic carcinoma. AM:lars 09/14/16 Comm ent: Excisional biopsy is recommended for further classification. Case has been reviewed in consultation with Dr. Contreras who concurs with the abovediagnosis. IDC: PHYSICIAN AND INSTITUTION [place] [address] Signed Jasbir [facility] 09/14/16 <signature on file> 2-Vwh-385213:05 Systemic Lupus Profile A Comments: PATIENT NOT FASTINGPERFORMED BY: [facility] [address] [facility] [id number] Anti-DNA (DS) Ab Qn 6 {IU/mL} (Normal) Range: 0-9 Comments: Negative <5 Equivocal 5 - 9 Positive >9 Sjogren's Anti-SS-B <0.2 {AI} (Normal) Range: 0.0-0.9 Sjogren's Anti-SS-A 1.2 {AI} Range: 0.0-0.9 (Abnormal) Antichromatin Antibodies <0.2 {AI} (Normal) Range: 0.0-0.9 RA Latex Turbid. <10.0 {IU/mL} Range: 0.0-13.9 (Normal) Gibson Antibodies <0.2 {AI} (Normal) Range: 0.0-0.9 POOL CLEANER Antibodies <0.2 {AI} (Normal) Range: 0.0-0.9 Written Authorization WAR (Normal) Comments: PATIENT NOT FASTINGPERFORMED BY: [facility] [facility] [id number] :05 Comments: Written Authorization Received.Authorization received from HAFSA RIOJAS [id number] by Elaina Louis 0-Hnk-267965:05 CMV ANTIBODY (27445) Comments: PATIENT NOT FASTINGPERFORMED BY: [facility] [facility] [id number] Cytomegalovirus (CMV) Ab, IgG <0.60 U/mL (Normal) Range: 0.00-0.59 Comments: Negative <0.60 Equivocal 0.60 - 0.69 Positive >0.69 :05 CMV IGM ANTBDY (05120) Comments: PATIENT NOT FASTINGPERFORMED BY: [facility] [facility] [id number] Cytomegalovirus (CMV) Ab, IgM <30.0 AU/mL (Normal) Range: 0.0-29.9 Comments: Negative <30.0 Equivocal 30.0 - 34.9 Positive >34.9 A positive result is generally indicative of acute infection, reactivation or persistent IgM production. :05 EB ANTIBODY VIRAL CAPSID Comments: PATIENT NOT FASTINGPERFORMED BY: [facility] [facility] [id number] (55021) X2 Interpretation: SPRCS (Normal) Comments: EBV Interpretation Chart . Interpretation EBV-IgM EA(D)-IgG VCA-IgG EBNA-IgG . EBV Seronegative - - - - Early Phase + - - - Acute Primary + +or- + - Infection Convalescence/Past - +or- + + Infection Reactivated +or- + + + Infection + Antibody Present - Antibody Absent EBV Nuclear Antigen Ab, IgG 361.0 U/mL (Abnormal) Range: 0.0-17.9 Comments: Negative <18.0 Equivocal 18.0 - 21.9 Positive >21.9 EBV Ab VCA, IgG 530.0 U/mL (Abnormal) Range: 0.0-17.9 Comments: Negative <18.0 Equivocal 18.0 - 21.9 Positive >21.9 EBV Early Antigen Ab, IgG <9.0 U/mL (Normal) Range: 0.0-8.9 Comments: Negative < 9.0 Equivocal 9.0 - 10.9 Positive >10.9 EBV Ab VCA, IgM <36.0 U/mL (Normal) Range: 0.0-35.9 Comments: Negative <36.0 Equivocal 36.0 - 43.9 Positive >43.9 2-Auq-179525:05 LDH (LD) (LACTATE DEHYDROGENASE) Comments: PATIENT NOT FASTINGPERFORMED BY: [email or web address] [id number] (31686) LDH 195 [iU]/L (Normal) Range: 119-226 7-Wqf-267091:05 JOSE ALEJANDRO (ANTINUCLEAR ANTIBODY) Comments: PATIENT NOT FASTINGPERFORMED BY: [email or web address]6370 [facility] [id number] ([id number]) JOSE ALEJANDRO Direct Positive (Abnormal) 0-Adj-792141:05 C-REACTIVE PROTEIN (12302) Comments: PATIENT NOT FASTINGPERFORMED BY: [email or web address] [id number] C-Reactive Protein, Quant 8.8 mg/L (Abnormal) Range: 0.0-4.9 0-Nyu-884432:05 SED RATE ERYTHROCYTE (87092) Comments: PATIENT NOT FASTINGPERFORMED BY: [email or web address] [id number] Sedimentation Rate-Westergren 20 mm/h (Normal) Range: 0-40 5-Hna-864778:05 METABOLIC PANEL, COMPREHENSIVE Comments: PATIENT NOT FASTINGPERFORMED BY: [facility] Mul[facility] HillYblywp8443 [facility] [id number] (70411) ALT (SGPT) 9 [iU]/L (Normal) Range: 0-32 AST (SGOT) 16 [iU]/L (Normal) Range: 0-40 Alkaline Phosphatase, S 100 [iU]/L (Normal) Range: 39-117 Bilirubin, Total 0.4 mg/dL (Normal) Range: 0.0-1.2 A/G Ratio 1.0 (Abnormal) Range: 1.2-2.2 Globulin, Total 3.7 g/dL (Normal) Range: 1.5-4.5 Albumin, Serum 3.8 g/dL (Normal) Range: 3.6-4.8 Protein, Total, Serum 7.5 g/dL (Normal) Range: 6.0-8.5 Calcium, Serum 9.4 mg/dL (Normal) Range: 8.7-10.3 Carbon Dioxide, Total 20 mmol/L (Normal) Range: 18-29 Chloride, Serum 99 mmol/L (Normal) Range: 96-106 Potassium, Serum 4.5 mmol/L (Normal) Range: 3.5-5.2 Sodium, Serum 140 mmol/L (Normal) Range: 134-144 BUN/Creatinine Ratio 16 (Normal) Range: 12-28 eGFR If Africn Am 104 mL/min/1.73 (Normal) eGFR If NonAfricn Am 90 mL/min/1.73 (Normal) Creatinine, Serum 0.70 mg/dL (Normal) Range: 0.57-1.00 BUN 11 mg/dL (Normal) Range: 8-27 Glucose, Serum 116 mg/dL (Abnormal) Range: 65-99 :26 HgA1C , Office (12686) HgA1C , Office 5.4 % (Normal) Range: 4.6 - 7.1 :26 Blood Glucose , Office (50714) Blood Glucose , Office 134 (Normal) :28 CBC W/Diff, Automated Comments: [facility] [address] [place], [address] Absolute Lymph 2.37 {X10_3/ul} (Normal) Range: 0.83-4.51 Absolute Neut 5.5 {X10_3/uL} (Normal) Range: 2.0-7.7 IM GRAN % 0.300 % (Normal) Range: 0.0-0.9 Comments: IG% - Immature Granulocytes (promyelocytes, myelocytes andmetamyelocytes) > 1% indicates that a LEFT SHIFT is Present. BASO% 0.8 % (Normal) Range: 0-1 EO% 11.6 % (Abnormal) Range: 0-5 MONO% 4.5 % (Normal) Range: 0-10 LY% 25.0 % (Normal) Range: 19-41 NEUT% 57.8 % (Normal) Range: 47-70 MPV 9.4 fL (Normal) Range: 6.2-12.0 PLT 361 K/mm3 (Normal) Range: 150-450 RDW SD 45.4 fL (Abnormal) Range: 35.1-43.9 RDW CV 13.8 % (Normal) Range: 11.6-14.6 MCHC 31.5 {g/gl} (Abnormal) Range: 32-36 MCH 28.6 pg (Normal) Range: 27.0-32.0 MCV 91.0 fL (Normal) Range: 81-99 HCT 37.5 % (Normal) Range: 37-47 HGB 11.8 g/dL (Abnormal) Range: 12.0-15.0 RBC 4.12 {M/mm3} (Abnormal) Range: 4.2-5.4 WBC 9.5 K/mm3 (Normal) Range: 4.4-11.0 14-Fbe-04920:28 Comprehensive Metabolic Profil Comments: [facility] [address] [place], [place], [address] GAP 8 (Normal) Range: 5-15 CO2 26.0 mmol/L (Normal) Range: 21.0-32.0 CL 102 mmol/L (Normal) Range: 98-107 K 4.1 mmol/L (Normal) Range: 3.5-5.1 NA 136 mmol/L (Normal) Range: 136-145 T BILI 0.50 mg/dL (Normal) Range: 0.20-1.00 ALT 12 U/L (Normal) Range: 12-78 ALK P 105 U/L (Normal) Range: 45-117 AST 11 U/L (Abnormal) Range: 15-37 CA 8.8 mg/dL (Normal) Range: 8.5-10.1 A/G 0.7 {RATIO} (Abnormal) Range: 0.9-2.4 GLOB 5.0 g/dL (Abnormal) Range: 2.3-3.5 ALB 3.3 g/dL (Abnormal) Range: 3.4-5.0 T PROT 8.3 g/dL (Abnormal) Range: 6.4-8.2 BUN/CRE 21.8 {RATIO} (Abnormal) Range: 10-20 EST GFR - AA 109 mL/min (Normal) Comments: GFR Calc EST GFR 90 mL/min (Normal) Comments: Non- GFR Calc CREAT,SERUM 0.69 mg/dL (Normal) Range: 0.55-1.02 Comments: The validity of the calculated GFR AND GFRAA in patients over70 years has not been determined. Clinical correlation isessential. BUN 15 mg/dL (Normal) Range: 7-18 GLU 96 mg/dL (Normal) Range: 70-110 45-Mup-35802:28 Lipid Profile Comments: [facility] [address] [place], [address] VLDL 26 mg/dL (Normal) Range: 5-40 LDL 93 mg/dL (Normal) Range: 0-130 HDL 51 mg/dL (Normal) Comments: The drugs N-Acetylcysteine and Metamizole may falsely deressthis assay. Reference Range HDL <40 mg/dL Low HDL Cholesterol HDL >or= 60 mg/dL High HDL Cholesterol TRIG 131 mg/dL (Normal) Comments: The drugs N-Acetylcysteine and Metamizole may falsely deressthis assay.Serum Triglycerides Reference Interval Normal <150 mg/dL Borderline high 150 - 199 mg/dL High 200 - 499 mg/dL Very High > or = 500 mg/dL CHOL 170 mg/dL (Normal) Comments: <200 mg/dL Desirable 200-240 mg/dL Borderline >240 mg/dL High Risk 31-Oyj-82921:28 Microalb:Creat Ratio,Random UR Comments: [facility] [address] [place], [address] MALB:CREAT 8.4 {mg/g_CRE} (Normal) MICROALBUMIN,UR 12.1 mg/L (Normal) UR CREAT 144.00 mg/dL (Normal) 12-Mmr-16142:28 Thyroid Stim Hormone (TSH) Comments: [facility] [address] [place], [address] TSH 1.74 {uIU/mL} (Normal) Range: 0.358-3.74 :28 Vitamin D,25 Hydroxy Comments: [facility] [address] [place], [address] Vitamin D 25-OH 45.5 ng/mL (Normal) Comments: Vitamin D 25(OH) Status Range Deficiency <20 ng/mL (50nmol/L) Insuffciency 20 - 30 ng/mL (50 - 75 nmol/L) Sufficiency 30 - 100 ng/mL (75 - 250 nmol/L) Toxicity >100 ng/mL (>250 nmol/L) :05 HgA1C , Office (67707) HgA1C , Office 5.6 % (Normal) Range: 4.6 - 7.1 :05 Blood Glucose , Office (61860) Blood Glucose , Office 134 (Normal) :42 CBC W/Diff, Automated Comments: [facility] [address] [place], [address] BASOPHIL 2 % (Abnormal) Range: 0-1 EOS 14 % (Abnormal) Range: 0-5 MONOCYTE 3 % (Normal) Range: 0-10 LYMPH 24 % (Normal) Range: 19-41 SEGS 57 % (Normal) Range: 47-70 CELLS COUNTED 100 (Normal) Absolute Lymph 2.40 {X10_3/ul} (Normal) Range: 0.83-4.51 Absolute Neut 5.6 {X10_3/uL} (Normal) Range: 2.0-7.7 MPV 9.4 fL (Normal) Range: 6.2-12.0 PLT 327 K/mm3 (Normal) Range: 150-450 RDW SD 45.0 fL (Abnormal) Range: 35.1-43.9 RDW CV 13.8 % (Normal) Range: 11.6-14.6 MCHC 31.9 {g/gl} (Abnormal) Range: 32-36 MCH 29.0 pg (Normal) Range: 27.0-32.0 MCV 90.9 fL (Normal) Range: 81-99 HCT 37.9 % (Normal) Range: 37-47 HGB 12.1 g/dL (Normal) Range: 12.0-15.0 RBC 4.17 {M/mm3} (Abnormal) Range: 4.2-5.4 WBC 9.9 K/mm3 (Normal) Range: 4.4-11.0 :42 Comprehensive Metabolic Profil Comments: [facility] [address] [place], [place], [address] GAP 9 (Normal) Range: 5-15 CO2 26.0 mmol/L (Normal) Range: 21.0-32.0 CL 104 mmol/L (Normal) Range: 98-107 K 4.0 mmol/L (Normal) Range: 3.5-5.1 NA 139 mmol/L (Normal) Range: 136-145 T BILI 0.50 mg/dL (Normal) Range: 0.20-1.00 ALT 16 U/L (Normal) Range: 12-78 ALK P 81 U/L (Normal) Range: 45-117 AST 15 U/L (Normal) Range: 15-37 CA 8.5 mg/dL (Normal) Range: 8.5-10.1 A/G 0.7 {RATIO} (Abnormal) Range: 0.9-2.4 GLOB 4.5 g/dL (Abnormal) Range: 2.3-3.5 ALB 3.2 g/dL (Abnormal) Range: 3.4-5.0 T PROT 7.7 g/dL (Normal) Range: 6.4-8.2 BUN/CRE 17.5 {RATIO} (Normal) Range: 10-20 EST GFR - AA 110 mL/min (Normal) Comments: GFR Calc EST GFR 91 mL/min (Normal) Comments: Non- GFR Calc CREAT,SERUM 0.69 mg/dL (Normal) Range: 0.55-1.02 Comments: The validity of the calculated GFR AND GFRAA in patients over70 years has not been determined. Clinical correlation isessential. BUN 12 mg/dL (Normal) Range: 7-18 GLU 89 mg/dL (Normal) Range: 70-110 :42 Lipid Profile Comments: [facility] [address] [place], [place], [id number] VLDL 28 mg/dL (Normal) Range: 5-40 LDL 97 mg/dL (Normal) Range: 0-130 HDL 49 mg/dL (Normal) Comments: The drugs N-Acetylcysteine and Metamizole may falsely deressthis assay. Reference Range HDL <40 mg/dL Low HDL Cholesterol HDL >or= 60 mg/dL High HDL Cholesterol TRIG 140 mg/dL (Normal) Comments: The drugs N-Acetylcysteine and Metamizole may falsely deressthis assay.Serum Triglycerides Reference Interval Normal <150 mg/dL Borderline high 150 - 199 mg/dL High 200 - 499 mg/dL Very High > or = 500 mg/dL CHOL 174 mg/dL (Normal) Comments: <200 mg/dL Desirable 200-240 mg/dL Borderline >240 mg/dL High Risk :42 Microalb:Creat Ratio,Random UR Comments: [facility] [place] [address] [place], [address] MALB:CREAT 5.3 {mg/g_CRE} (Normal) MICROALBUMIN,UR 7.8 mg/L (Normal) UR CREAT 146.00 mg/dL (Normal) :42 Vitamin B12 533 pg/mL (Normal) Comments: [facility] [place] [address] [place], [address] Range: 211-911 :42 Vitamin D,25 Hydroxy Comments: [facility] [place] [address] [place], [address] Vitamin D 25-OH 29.4 ng/mL (Normal) Comments: Vitamin D 25(OH) Status Range Deficiency <20 ng/mL (50nmol/L) Insuffciency 20 - 30 ng/mL (50 - 75 nmol/L) Sufficiency 30 - 100 ng/mL (75 - 250 nmol/L) Toxicity >100 ng/mL (>250 nmol/L) [id number] CBC W/Diff, Auto - EPLAB Comments: At [facility] Outpatient [facility] [place] Medical Oncologypatients receive CBC w/auto Differential ONLY. Physicianwill place an order for a manual differential or Pathologistreview at his discretion. [facility]. [address] [place] [address] [address] INFECTION PREVENTION COORDINATOR: JASBIR REINA DO PH:[phone] Medical [facility] [place] [address] [place], [place], [id number] Absolute Lymph 2.05 {X10_3/uL} (Normal) Range: 0.83-4.51 Absolute Neut 5.2 {X10_3/uL} (Normal) Range: 2.0-7.7 BASO% 1.2 % (Abnormal) Range: 0-1 EO% 9.8 % (Abnormal) Range: 0-5 MONO% 6.0 % (Normal) Range: 0-10 LY% 23.6 % (Normal) Range: 19-41 NEUT% 59.5 % (Normal) Range: 47-70 MPV 6.0 fL (Abnormal) Range: 6.2-12.0 PLT 361 K/mm3 (Normal) Range: 150-450 RDW 13.2 % (Normal) Range: 11.6-14.6 MCHC 32.3 g/dL (Normal) Range: 32-36 MCH 29.6 pg (Normal) Range: 27.0-32.0 MCV 91.7 fL (Normal) Range: 81-99 HCT 40.8 % (Normal) Range: 37-47 HGB 13.2 g/dL (Normal) Range: 12.0-15.0 RBC 4.45 {M/mm3} (Normal) Range: 4.2-5.4 WBC 8.7 K/mm3 (Normal) Range: 4.4-11.0 :19 Mqyv-7-Leusuailjgdih, S Comments: Order Date: 04/20/16 Order #: [id number] (refer to report for specific site)refer to report for address and phone number B2 [id number] 2.3 mg/L (Normal) Range: 0.6-2.4 Comments: Performed at: [address] [id number] Director: Jan Wilcox PhD, Phone: [phone] [id number] Comprehensive Metabolic Profil Comments: Order Date: 04/20/16OV Order #: [id number] Specimen #1, #2 or #3? 1 [id number] [address] [place], [place], [id number] GAP 4 (Abnormal) Range: 5-15 CO2 26.0 mmol/L (Normal) Range: 21.0-32.0 CL 106 mmol/L (Normal) Range: 98-107 K 4.0 mmol/L (Normal) Range: 3.5-5.1 NA 136 mmol/L (Normal) Range: 136-145 T BILI 0.50 mg/dL (Normal) Range: 0.20-1.00 ALT 20 U/L (Normal) Range: 12-78 ALK P 93 U/L (Normal) Range: 45-117 AST 16 U/L (Normal) Range: 15-37 CA 9.2 mg/dL (Normal) Range: 8.5-10.1 A/G 0.8 {RATIO} (Abnormal) Range: 0.9-2.4 GLOB 4.9 g/dL (Abnormal) Range: 2.3-3.5 ALB 3.7 g/dL (Normal) Range: 3.4-5.0 T PROT 8.6 g/dL (Abnormal) Range: 6.4-8.2 BUN/CRE 21.0 {RATIO} (Abnormal) Range: 10-20 EST GFR - AA 97 mL/min (Normal) Comments: GFR Calc EST GFR 80 mL/min (Normal) Comments: Non- GFR Calc CREAT,SERUM 0.76 mg/dL (Normal) Range: 0.55-1.02 Comments: The validity of the calculated GFR AND GFRAA in patients over70 years has not been determined. Clinical correlation isessential. BUN 16 mg/dL (Normal) Range: 7-18 GLU 96 mg/dL (Normal) Range: 70-110 [id number]:19 Crowell Lambda Light Chains Comments: Order Date: 04/20/16OV Order #: [id number] (refer to report for specific site)refer to report for address and phone number KAPPA/LAMBDA % 1.09 (Normal) Range: 0.26-1.65 Comments: [facility]: [facility] [id number] Director: Jan Wilcox PhD, Phone: [phone] FR LAMBDA LT CH 23.60 mg/L (Normal) Range: 5.71-26.30 FR KAPPA LT CHN 25.70 mg/L (Abnormal) Range: 3.30-19.40 :19 LDH 185 U/L (Normal) Comments: Order Date: 04/20/16 Order #: [id number] Specimen #1, #2 or #3? 1 [id number] Hospitals Health System [address] [place], [place], [address] Range: 84-246 :19 Protein Electro.Ur-Random Comments: Order Date: 04/20/16 Order #: [id number] (refer to report for specific site)refer to report for address and phone number NOTE Comment (Normal) Comments: Protein electrophoresis scan will follow via computer,mail, or assistant manager delivery.Performed at: [address] [id number] Director: Jan Wilcox PhD, Phone: [phone] M-SPIKE,U % (Normal) Comments: Not Observed GAMMA GLOB,U 29.8 % (Normal) BETA GLOB,U 36.8 % (Normal) QLFCT-3-AKUK,U 12.1 % (Normal) WFENL-0-IOMH,U 1.9 % (Normal) ALBUMIN,UR 19.5 % (Normal) PROTEIN,UR 13.7 mg/dL (Normal) :19 Protein Electroph, S Comments: Order Date: 04/20/16 Order #: [id number] (refer to report for specific site)refer to report for address and phone number NOTE: Comment (Normal) Comments: The SPE pattern reflects a polyclonal increase in gammaglobulin due to numerous clones of plasma cells producingheterogeneous antibody in response to some form ofantigenic stimulus. Hypergammaglob-ulin emia is found in awide variety of infectious, non-infectious, and autoimmunedisease states. Evidence of monoclonal protein is notapparent. INTERPRETATION Comment (Normal) Comments: Protein electrophoresis scan will follow via computer,mail, or assistant manager delivery. A/G RATIO 0.8 (Normal) Range: 0.7-1.7 GLOBULIN, TOTAL 4.4 g/dL (Abnormal) Range: 2.2-3.9 M-SPIKE g/dL (Normal) Comments: Not Observed GAMMA GLOBULIN 1.9 g/dL (Abnormal) Range: 0.4-1.8 BETA GLOBULIN 1.2 g/dL (Normal) Range: 0.7-1.3 ALPHA-2 GLOBUL 0.9 g/dL (Normal) Range: 0.4-1.0 ALPHA-1 GLOBUL 0.3 g/dL (Normal) Range: 0.0-0.4 ALBUMIN 3.4 g/dL (Normal) Range: 2.9-4.4 PROTEIN,TOTAL 7.8 g/dL (Normal) Range: 6.0-8.5 :44 HgA1C , Office ([id number]) Comments: Do not charge - taken by mistake!!!!! HgA1C , Office 5.8 % (Normal) Range: 4.6 - 7.1 :47 CBC W/Diff, Automated Comments: [facility] [place] [address] [facility]. [place], [place], [id number] ; non-emergent till apt Absolute Lymph 2.38 {X10_3/ul} (Normal) Range: 0.83-4.51 Absolute Neut 4.7 {X10_3/uL} (Normal) Range: 2.0-7.7 IM GRAN % 0.200 % (Normal) Range: 0.0-0.9 Comments: IG% - Immature Granulocytes (promyelocytes, myelocytes andmetamyelocytes) > 1% indicates that a LEFT SHIFT is Present. BASO% 0.8 % (Normal) Range: 0-1 EO% 13.6 % (Abnormal) Range: 0-5 MONO% 7.1 % (Normal) Range: 0-10 LY% 26.3 % (Normal) Range: 19-41 NEUT% 52.0 % (Normal) Range: 47-70 MPV 9.6 fL (Normal) Range: 6.2-12.0 PLT 336 K/mm3 (Normal) Range: 150-450 RDW SD 43.0 fL (Normal) Range: 35.1-43.9 RDW CV 13.3 % (Normal) Range: 11.6-14.6 MCHC 32.8 {g/gl} (Normal) Range: 32-36 MCH 29.6 pg (Normal) Range: 27.0-32.0 MCV 90.1 fL (Normal) Range: 81-99 HCT 37.5 % (Normal) Range: 37-47 HGB 12.3 g/dL (Normal) Range: 12.0-15.0 RBC 4.16 {M/mm3} (Abnormal) Range: 4.2-5.4 WBC 9.1 K/mm3 (Normal) Range: 4.4-11.0 :47 Comprehensive Metabolic Profil Comments: [facility] [place] [address] [place], [place], [id number] ; non-emergent till apt GAP 7 (Normal) Range: 5-15 CO2 27.0 mmol/L (Normal) Range: 21.0-32.0 CL 103 mmol/L (Normal) Range: 98-107 K 4.0 mmol/L (Normal) Range: 3.5-5.1 NA 137 mmol/L (Normal) Range: 136-145 T BILI 0.70 mg/dL (Normal) Range: 0.20-1.00 ALT 21 U/L (Normal) Range: 12-78 ALK P 83 U/L (Normal) Range: 50-136 AST 20 U/L (Normal) Range: 15-37 CA 8.4 mg/dL (Abnormal) Range: 8.5-10.1 A/G 0.8 {RATIO} (Abnormal) Range: 0.9-2.4 GLOB 4.4 g/dL (Abnormal) Range: 2.3-3.5 ALB 3.3 g/dL (Abnormal) Range: 3.4-5.0 T PROT 7.7 g/dL (Normal) Range: 6.4-8.2 BUN/CRE 15.5 {RATIO} (Normal) Range: 10-20 EST GFR - AA 106 mL/min (Normal) Comments: GFR Calc EST GFR 87 mL/min (Normal) Comments: Non- GFR Calc CREAT,SERUM 0.71 mg/dL (Normal) Range: 0.55-1.20 Comments: The validity of the calculated GFR AND GFRAA in patients over70 years has not been determined. Clinical correlation isessential. BUN 11 mg/dL (Normal) Range: 7-18 GLU 93 mg/dL (Normal) Range: 70-110 :47 Hemoglobin A1c Comments: [facility] [place] [address] [place], [address] HGB A1C 6.1 % (Normal) Range: 4.2-6.3 :47 Lipid Profile Comments: [facility] [place] [address] [place], [address] VLDL 28 mg/dL (Normal) Range: 5-40 LDL 85 mg/dL (Normal) Range: 0-130 HDL 45 mg/dL (Normal) Comments: The drugs N-Acetylcysteine and Metamizole may falsely deressthis assay. Reference Range HDL <40 mg/dL Low HDL Cholesterol HDL >or= 60 mg/dL High HDL Cholesterol TRIG 140 mg/dL (Normal) Comments: The drugs N-Acetylcysteine and Metamizole may falsely deressthis assay.Serum Triglycerides Reference Interval Normal <150 mg/dL Borderline high 150 - 199 mg/dL High 200 - 499 mg/dL Very High > or = 500 mg/dL CHOL 158 mg/dL (Normal) Comments: <200 mg/dL Desirable 200-240 mg/dL Borderline >240 mg/dL High Risk :47 Microalb:Creat Ratio,Random UR Comments: [facility] [place] [address] [place], [address] MALB:CREAT 6.6 {mg/g_CRE} (Normal) MICROALBUMIN,UR 6.4 mg/L (Normal) UR CREAT 96.50 mg/dL (Normal) [id number] CBC W/Diff, Automated Comments: PERF,SMEAR PER DOCTORS ORDERWUniversity Hospitals Health System [address] [place] [place], [address] PATH REV Reviewed (Normal) Comments: Mild increase of eosinophils noted.Mariano Contreras M.D. 09/20/15 Absolute Lymph 2.56 {X10_3/ul} (Normal) Range: 0.83-4.51 Absolute Neut 4.1 {X10_3/uL} (Normal) Range: 2.0-7.7 IM GRAN % 0.300 % (Normal) Range: 0.0-0.9 Comments: IG% - Immature Granulocytes (promyelocytes, myelocytes andmetamyelocytes) > 1% indicates that a LEFT SHIFT is Present. BASO% 0.9 % (Normal) Range: 0-1 EO% 8.3 % (Abnormal) Range: 0-5 MONO% 5.7 % (Normal) Range: 0-10 LY% 32.5 % (Normal) Range: 19-41 NEUT% 52.3 % (Normal) Range: 47-70 MPV 9.3 fL (Normal) Range: 6.2-12.0 PLT 332 K/mm3 (Normal) Range: 150-450 RDW SD 43.4 fL (Normal) Range: 35.1-43.9 RDW CV 13.2 % (Normal) Range: 11.6-14.6 MCHC 32.5 {g/gl} (Normal) Range: 32-36 MCH 29.3 pg (Normal) Range: 27.0-32.0 MCV 90.3 fL (Normal) Range: 81-99 HCT 39.1 % (Normal) Range: 37-47 HGB 12.7 g/dL (Normal) Range: 12.0-15.0 RBC 4.33 {M/mm3} (Normal) Range: 4.2-5.4 WBC 7.9 K/mm3 (Normal) Range: 4.4-11.0 [id number] Miscellaneous Lab Procedure Comments: Test(s) Ordered: FLOW CYTOMETRY [id number] HEP./1 LAV [facility] [address] [place], [place], [id number] [facility] Comments: TEST RESULT UNITS REFERENCE INTERVALComp panel: Leukemia/LymphomaFlow Interpretation:No significant immunophenotypic abnormality detectedClinical Information:Monoclonal gammopathyAc LAB (Normal) companying CBC dated 09/20/15 shows:WBC count 7.9, Antonia 4.1, Lym 2.6Specimen Type:Peripheral bloodAssessment of Leukocytes:No monoclonal B cell population is detected.There is no loss of, or aberrant expre TEST ssion of, the schaefer Tcell antigens to suggest a neoplastic T cell process.An increased CD4/T helper to CD8/T suppressor cell ratio isdetected.CD4:CD8 ratio 5.8No circulating blasts are detected.There is n o immunophenotypic evidence of abnormal myeloidmaturation.Eosinophils are absolutely increased and account forapproximately 9% of leukocytes. Eosinophilia may beassociated with drug reaction, parasitic infection, andneoplastic processes, among others.Viability:98%Analysis and Gating Strategy:8-color analysis with CD45/SSC gatingPhenotype Chart: CD2 Normal CD3 Normal CD4 Normal CD5 Normal CD7 Normal CD8 Normal CD10 Normal CD11b Normal CD13 Normal CD14 Normal CD16 Normal CD19 Normal CD20 Normal CD33 Normal CD34 Normal CD38 Normal CD45 Normal CD56 Normal CD57 Normal CD117 Normal HLA-DR Normal KAPPA NormalLAMBDA Normal CD64 NormalResulting Path Name:Ginette Wells M.D.Comment:Each antibody in this assay was utilized to assess forpotential abnormalities of studied cell populatio ns or tocharacterize identified abnormalities. This test wasdeveloped and its performance characteristics determinedby [email or web address].skS[facility]. It has not been cleared or approved by the U.S.Food and Drug Administratio n. The FDA has determined thatsuch clearance or approval is not necessary. This test isused for clinical purposes. It should not be regarded asinvestigational or for research. TESTING PERFORMED AT [facility]. ORIGINAL REPORT ON FILE IN LAB CONTAINS ADDITIONAL TEST SITE INFORMATION. :31 Uric Acid Comments: [facility] [address] [place], [address] URIC 7.3 mg/dL (Abnormal) Range: 2.6-6.0 Comments: The drugs N-Acetylcysteine and Metamizole may falsely deressthis assay. :52 Rzgu-8-Pfjayxumcpzjp, S Comments: [facility] (refer to report for specific site)refer to report for address and phone number B2 [id number] 1.9 mg/L (Normal) Range: 0.6-2.4 :52 Comprehensive Metabolic Profil Comments: Serial Specimen #1, #2 or #3? 1[facility] [address] [place], [place], [id number] GAP 7 (Normal) Range: 5-15 CO2 26.0 mmol/L (Normal) Range: 21.0-32.0 CL 106 mmol/L (Normal) Range: 98-107 K 4.1 mmol/L (Normal) Range: 3.5-5.1 NA 139 mmol/L (Normal) Range: 136-145 T BILI 0.40 mg/dL (Normal) Range: 0.20-1.00 ALT 27 U/L (Normal) Range: 12-78 ALK P 79 U/L (Normal) Range: 50-136 AST 16 U/L (Normal) Range: 15-37 CA 8.8 mg/dL (Normal) Range: 8.5-10.1 A/G 0.7 {RATIO} (Abnormal) Range: 0.9-2.4 GLOB 4.9 g/dL (Abnormal) Range: 2.3-3.5 ALB 3.5 g/dL (Normal) Range: 3.4-5.0 T PROT 8.4 g/dL (Abnormal) Range: 6.4-8.2 BUN/CRE 21.3 {RATIO} (Abnormal) Range: 10-20 EST GFR - AA 115 mL/min (Normal) Comments: GFR Calc EST GFR 95 mL/min (Normal) Comments: Non- GFR Calc CREAT,SERUM 0.66 mg/dL (Normal) Range: 0.55-1.20 Comments: The validity of the calculated GFR AND GFRAA in patients over70 years has not been determined. Clinical correlation isessential. BUN 14 mg/dL (Normal) Range: 7-18 GLU 92 mg/dL (Normal) Range: 70-110 :52 CHI + Protein Elect, Serum Comments: Is Patient Fasting? [facility] (refer to report for specific site)refer to report for address and phone number NOTE: Comment (Normal) Comments: Protein electrophoresis scan will follow via computer,mail, or assistant manager delivery. CHI RESULT,S Comment (Normal) Comments: No monoclonality detected. A/G RATIO 0.9 (Normal) Range: 0.7-2.0 Comments: Effective September 26, 2015 the reference interval for A/G Ratio will be changing to: 0 - 30 days Not Estab. >30 days 0.7 - 1.7 GLOBULIN, TOTAL 4.0 g/dL (Normal) Range: 2.0-4.5 Comments: Effective September 26, 2015 the reference interval for Globulin, Total will be changing to: 0 - 30 days Not Estab. >30 days 2.2 - 3.9 M-SPIKE (Normal) Comments: Not Observed GAMMA GLOBULIN 1.7 g/dL (Abnormal) Range: 0.5-1.6 Comments: Effective September 26, 2015 the reference interval for Gamma Globulin will be changing to: 0 - 30 days Not Estab. 1 - 6 months 0.3 - 1.6 7 months - 5 years 0.4 - 1.3 6 - 17 years 0.6 - 1.5 >17 years 0.4 - 1.8 BETA GLOBULIN 1.1 g/dL (Normal) Range: 0.6-1.3 Comments: Effective September 26, 2015 the reference interval for Beta Globulin will be changing to: 0 - 30 days Not Estab. 1 - 6 months 0.5 - 1.3 >6 months 0.7 - 1.3 TDATQ-1-YFUR 0.9 g/dL (Normal) Range: 0.4-1.2 Comments: Effective September 26, 2015 the reference interval for Vkhjg-7-Fdaqkgmt will be changing to: 0 - 30 days Not Estab. >30 days 0.4 - 1.0 BOIIK-1-RGNA 0.3 g/dL (Normal) Range: 0.1-0.4 Comments: Effective September 26, 2015 the reference interval for Jshgt-1-Gwoexdrb will be changing to: 0 - 30 days Not Estab. >30 days 0.0 - 0.4 ALBUMIN 3.5 g/dL (Normal) Range: 3.2-5.6 Comments: Effective September 26, 2015 the reference interval for Albumin will be changing to: 0 - 30 days Not Estab. >30 days 2.9 - 4.4 IMMUNOGL M 564 mg/dL (Abnormal) Range: 26-217 IMMUNO A 225 mg/dL (Normal) Range: 87-352 IMMUNO G 1469 mg/dL (Normal) Range: 700-1600 PROTEIN,TOTAL 7.5 g/dL (Normal) Range: 6.0-8.5 :52 Crowell Lambda Light Chains Comments: Is Patient Fasting? [facility] (refer to report for specific site)refer to report for address and phone number KAPPA/LAMBDA % 0.95 (Normal) Range: 0.26-1.65 Comments: Performed at: [facility] Lab[address] [id number] Director: Jan Wilcox PhD, Phone: [phone] FR LAMBDA LT CH 22.66 mg/L (Normal) Range: 5.71-26.30 FR KAPPA LT CHN 21.46 mg/L (Abnormal) Range: 3.30-19.40 :52 LDH 178 U/L (Normal) Comments: Serial Specimen #1, #2 or #3? 1[facility] [address] [place], [place], [id number] Range: 84-246 :52 Protein Electro.Ur-Random Comments: Is Patient Fasting? [facility] (refer to report for specific site)refer to report for address and phone number NOTE Comment (Normal) Comments: Protein electrophoresis scan will follow via computer,mail, or assistant manager delivery. M-SPIKE,U (Normal) Comments: Not Observed GAMMA GLOB,U 10.5 % (Normal) BETA GLOB,U 31.2 % (Normal) AVNDO-6-ACIR,U 18.4 % (Normal) ISXRO-2-OGEK,U 10.9 % (Normal) ALBUMIN,UR 28.9 % (Normal) PROTEIN,UR 12.1 mg/dL (Normal) :49 CBC W/Diff, Auto - EPLAB Comments: At [facility] Medical Oncologypatients receive CBC w/auto Differential ONLY. Physicianwill place an order for a manual differential or Pathologistreview at his discretion. [facility] [place]. [address] [place] [address] [place] [address] INFECTION PREVENTION COORDINATOR: JASBIR REINA DO PH:[phone] Hospitals Health System [address] [place], [address] Absolute Lymph 2.75 {X10_3/uL} (Normal) Range: 0.83-4.51 Absolute Neut 4.8 {X10_3/uL} (Normal) Range: 2.0-7.7 BASO% 1.6 % (Abnormal) Range: 0-1 EO% 6.9 % (Abnormal) Range: 0-5 MONO% 6.0 % (Normal) Range: 0-10 LY% 31.2 % (Normal) Range: 19-41 NEUT% 54.3 % (Normal) Range: 47-70 MPV 6.8 fL (Normal) Range: 6.2-12.0 PLT 356 K/mm3 (Normal) Range: 150-450 RDW 12.0 % (Normal) Range: 11.6-14.6 MCHC 33.1 g/dL (Normal) Range: 32-36 MCH 28.9 pg (Normal) Range: 27.0-32.0 MCV 87.3 fL (Normal) Range: 81-99 HCT 40.2 % (Normal) Range: 37-47 HGB 13.3 g/dL (Normal) Range: 12.0-15.0 RBC 4.61 {M/mm3} (Normal) Range: 4.2-5.4 WBC 8.8 K/mm3 (Normal) Range: 4.4-11.0 :37 CBC W/Diff, Automated Comments: [facility] [address] [place] [place], [address] Absolute Lymph 2.98 {X10_3/ul} (Normal) Range: 0.83-4.51 Absolute Neut 3.6 {X10_3/uL} (Normal) Range: 2.0-7.7 IM GRAN % 0.400 % (Normal) Range: 0.0-0.9 Comments: IG% - Immature Granulocytes (promyelocytes, myelocytes andmetamyelocytes) > 1% indicates that a LEFT SHIFT is Present. BASO% 0.9 % (Normal) Range: 0-1 EO% 12.6 % (Abnormal) Range: 0-5 MONO% 7.9 % (Normal) Range: 0-10 LY% 35.3 % (Normal) Range: 19-41 NEUT% 42.9 % (Abnormal) Range: 47-70 MPV 9.8 fL (Normal) Range: 6.2-12.0 PLT 363 K/mm3 (Normal) Range: 150-450 RDW SD 43.4 fL (Normal) Range: 35.1-43.9 RDW CV 13.3 % (Normal) Range: 11.6-14.6 MCHC 32.6 {g/gl} (Normal) Range: 32-36 MCH 29.5 pg (Normal) Range: 27.0-32.0 MCV 90.5 fL (Normal) Range: 81-99 HCT 40.8 % (Normal) Range: 37-47 HGB 13.3 g/dL (Normal) Range: 12.0-15.0 RBC 4.51 {M/mm3} (Normal) Range: 4.2-5.4 WBC 8.4 K/mm3 (Normal) Range: 4.4-11.0 :37 Comprehensive Metabolic Profil Comments: [facility] [address] [place], [address] ; will review at 09/08 GAP 8 (Normal) Range: 5-15 CO2 27.0 mmol/L (Normal) Range: 21.0-32.0 CL 107 mmol/L (Normal) Range: 98-107 K 4.0 mmol/L (Normal) Range: 3.5-5.1 NA 142 mmol/L (Normal) Range: 136-145 T BILI 0.70 mg/dL (Normal) Range: 0.20-1.00 ALT 23 U/L (Normal) Range: 12-78 ALK P 78 U/L (Normal) Range: 50-136 AST 18 U/L (Normal) Range: 15-37 CA 9.0 mg/dL (Normal) Range: 8.5-10.1 A/G 0.7 {RATIO} (Abnormal) Range: 0.9-2.4 GLOB 4.6 g/dL (Abnormal) Range: 2.3-3.5 ALB 3.4 g/dL (Normal) Range: 3.4-5.0 T PROT 8.0 g/dL (Normal) Range: 6.4-8.2 BUN/CRE 15.4 {RATIO} (Normal) Range: 10-20 EST GFR - AA 105 mL/min (Normal) Comments: GFR Calc EST GFR 87 mL/min (Normal) Comments: Non- GFR Calc CREAT,SERUM 0.71 mg/dL (Normal) Range: 0.55-1.20 Comments: The validity of the calculated GFR AND GFRAA in patients over70 years has not been determined. Clinical correlation isessential. BUN 11 mg/dL (Normal) Range: 7-18 GLU 97 mg/dL (Normal) Range: 70-110 :37 Hemoglobin A1c Comments: [facility] [address] [place], [place], [id number] HGB A1C 5.9 % (Normal) Range: 4.2-6.3 :37 Immunofixation Urine Comments: [facility] (refer to report for specific site)refer to report for address and phone number CHI Urine Comment (Normal) Comments: No monoclonality detected.Performed at: [address] [id number] Director: Jan Wilcox PhD, Phone: [phone] Immunofixation, Serum Comments: [facility] (refer to report for specific site)refer to report for address and phone number CHI RESULT,S Comment (Normal) Comments: No monoclonality detected. IMMUNOGL M 583 mg/dL (Abnormal) Range: 26-217 IMMUNO A 218 mg/dL (Normal) Range: 87-352 IMMUNO G 1451 mg/dL (Normal) Range: 700-1600 :37 Crowell Lambda Light Chains Comments: [facility] (refer to report for specific site)refer to report for address and phone number; ok til apt KAPPA/LAMBDA % 0.92 (Normal) Range: 0.26-1.65 FR LAMBDA LT CH 24.29 mg/L (Normal) Range: 5.71-26.30 FR KAPPA LT CHN 22.34 mg/L (Abnormal) Range: 3.30-19.40 :37 Lipid Profile Comments: [facility] [address] [place], [place], [id number] VLDL 33 mg/dL (Normal) Range: 5-40 LDL 106 mg/dL (Normal) Range: 0-130 HDL 45 mg/dL (Normal) Comments: Reference Range HDL <40 mg/dL Low HDL Cholesterol HDL >or= 60 mg/dL High HDL Cholesterol TRIG 167 mg/dL (Normal) Comments: Serum Triglycerides Reference Interval Normal <150 mg/dL Borderline high 150 - 199 mg/dL High 200 - 499 mg/dL Very High > or = 500 mg/dL CHOL 184 mg/dL (Normal) Comments: <200 mg/dL Desirable 200-240 mg/dL Borderline >240 mg/dL High Risk :27 CBC W/Diff, Automated Comments: [facility] [address] [place], [place], [id number] Absolute Lymph 2.70 {X10_3/ul} (Normal) Range: 0.83-4.51 Absolute Neut 4.0 {X10_3/uL} (Normal) Range: 2.0-7.7 IM GRAN % 0.100 % (Normal) Range: 0.0-0.9 Comments: IG% - Immature Granulocytes (promyelocytes, myelocytes andmetamyelocytes) > 1% indicates that a LEFT SHIFT is Present. BASO% 1.1 % (Abnormal) Range: 0-1 EO% 10.3 % (Abnormal) Range: 0-5 MONO% 7.1 % (Normal) Range: 0-10 LY% 33.0 % (Normal) Range: 19-41 NEUT% 48.4 % (Normal) Range: 47-70 MPV 9.7 fL (Normal) Range: 6.2-12.0 PLT 364 K/mm3 (Normal) Range: 150-450 RDW SD 43.5 fL (Normal) Range: 35.1-43.9 RDW CV 13.4 % (Normal) Range: 11.6-14.6 MCHC 32.5 {g/gl} (Normal) Range: 32-36 MCH 29.3 pg (Normal) Range: 27.0-32.0 MCV 90.2 fL (Normal) Range: 81-99 HCT 40.6 % (Normal) Range: 37-47 HGB 13.2 g/dL (Normal) Range: 12.0-15.0 RBC 4.50 {M/mm3} (Normal) Range: 4.2-5.4 WBC 8.2 K/mm3 (Normal) Range: 4.4-11.0 :27 Comprehensive Metabolic Profil Comments: [facility] [id number] [place], [address] GAP 5 (Normal) Range: 5-15 CO2 27.0 mmol/L (Normal) Range: 21.0-32.0 CL 108 mmol/L (Abnormal) Range: 98-107 K 4.2 mmol/L (Normal) Range: 3.5-5.1 NA 140 mmol/L (Normal) Range: 136-145 T BILI 0.60 mg/dL (Normal) Range: 0.20-1.00 ALT 21 U/L (Normal) Range: 12-78 ALK P 74 U/L (Normal) Range: 50-136 AST 19 U/L (Normal) Range: 15-37 CA 8.5 mg/dL (Normal) Range: 8.5-10.1 A/G 0.7 {RATIO} (Abnormal) Range: 0.9-2.4 GLOB 4.7 g/dL (Abnormal) Range: 2.3-3.5 ALB 3.4 g/dL (Normal) Range: 3.4-5.0 T PROT 8.1 g/dL (Normal) Range: 6.4-8.2 BUN/CRE 19.1 {RATIO} (Normal) Range: 10-20 EST GFR - AA 94 mL/min (Normal) Comments: GFR Calc EST GFR 78 mL/min (Normal) Comments: Non- GFR Calc CREAT,SERUM 0.79 mg/dL (Normal) Range: 0.55-1.20 Comments: The validity of the calculated GFR AND GFRAA in patients over70 years has not been determined. Clinical correlation isessential. BUN 15 mg/dL (Normal) Range: 7-18 GLU 97 mg/dL (Normal) Range: 70-110 64-Gon-28046:27 Hemoglobin A1c Comments: [facility] [address] [place], [address] HGB A1C 5.8 % (Normal) Range: 4.2-6.3 :27 Lipid Profile Comments: [facility] [address] [place], [address] VLDL 35 mg/dL (Normal) Range: 5-40 LDL 91 mg/dL (Normal) Range: 0-130 HDL 46 mg/dL (Normal) Comments: Reference Range HDL <40 mg/dL Low HDL Cholesterol HDL >or= 60 mg/dL High HDL Cholesterol TRIG 173 mg/dL (Normal) Comments: Serum Triglycerides Reference Interval Normal <150 mg/dL Borderline high 150 - 199 mg/dL High 200 - 499 mg/dL Very High > or = 500 mg/dL CHOL 172 mg/dL (Normal) Comments: <200 mg/dL Desirable 200-240 mg/dL Borderline >240 mg/dL High Risk :27 Microalb:Creat Ratio,Random UR Comments: [facility] [address] [place], [address] MALB:CREAT 5.1 {mg/g_CRE} (Normal) MICROALBUMIN,UR 5.3 mg/L (Normal) UR CREAT 103.00 mg/dL (Normal) :27 Uric Acid Comments: [facility] [address] [place], [address] URIC 7.7 mg/dL (Abnormal) Range: 2.6-6.0 Comments: ADDENDA: non-emergent till apt [address]-Rno-21631:00 COLON BIOPSY (CHOOSE See Note (Normal) Comments: [facility] [address] [place], [address] ; ordered by Dr. Yoder SITE) Comments: Patient: LISETTE CRISOSTOMO : 1950 (64/F) Acct Num: [id number] Phys: Jan Yoder Unit Num: [id number] Loc: EN Specimen: [id number] Received: 02/08/15 - 0930 Spec Type: COL ON BX TISSUES TISSUES: GROSS DESCRIPTION Received is one container labeled with the patient name and designated sigmoid colon polyp biopsy. The specimen consists of multiple irregu lar fragments of light [place] soft tissue that in aggregate measure 0.5 x 0.3 x 0.1 cm. The specimen is totally submitted in one cassette. / : 02/08/15 TC:1 CPT: 66779 HEADER OPERATION: [employer] noscopy PRE-OP DIAGNOSIS: Screening TISSUE SUBMITTED: Sigmoid colon polyp, biopsy MICROSCOPIC DESCRIPTION Slides are reviewed. MICROSCOPIC DIAGNOSIS Sigmoid colon polyp, biopsy: agments of hyperplastic polyp. : 02/09/15 Signed Mariano Contreras 02/09/15 <signature on file> 1-Fvi-282682:54 JOSE ALEJANDRO (ANTINUCLEAR ANTIBODY) Comments: PATIENT NOT FASTINGPERFORMED BY: hiyalife [facility] [id number] BY: Respiratory Motion[address] [id number] ([id number]) JOSE ALEJANDRO Direct Negative (Normal) 9-Vzp-789967:54 CCP ANTIBODY (57576) Comments: PATIENT NOT FASTINGPERFORMED BY: BemDireto70 Multani [facility] [id number] BY: Respiratory [employer] [id number] CCP Antibodies IgG/IgA 4 {units} (Normal) Range: 0-19 Comments: Negative <20 Weak positive 20 - 39 Moderate positive 40 - 59 Strong positive >59 9-Irp-486783:54 RHEUMATOID FACTOR-QUANT Comments: PATIENT NOT FASTINGPERFORMED BY: Quincee [facility] [id number] BY: Ibotta[address] [id number] Information: [id number] (72376) RA Latex Turbid. 8.1 {IU/mL} (Normal) Range: 0.0-13.9 :54 SED RATE ERYTHROCYTE Comments: PATIENT NOT FASTINGPERFORMED BY: LabCoMargaret [place] [id number] [facility] [id number] BY: [address] [id number] ([id number]) Sedimentation Rate-Westergren 17 mm/h (Normal) Range: 0-40 :54 C-REACTIVE PROTEIN (44296) Comments: PATIENT NOT FASTINGPERFORMED BY: LabKarmanos [facility] Center6370 [facility] [id number] BY: Lab[address] [id number] C-Reactive Protein, Quant 4.4 mg/L (Normal) Range: 0.0-4.9 :10 HgA1C , Office (55198) HgA1C , Office 6.1 % (Normal) Range: 4.6 - 7.1 :17 CBC W/Diff, Automated Comments: Test performed at:[facility] [address] [place], [place] [id number] Absolute Lymph 3.10 {X10_3/ul} (Normal) Range: 0.83-4.51 Absolute Neut 3.9 {X10_3/uL} (Normal) Range: 2.0-7.7 IM GRAN % 0.100 % (Normal) Range: 0.0-0.9 Comments: IG% - Immature Granulocytes (promyelocytes, myelocytes andmetamyelocytes) > 1% indicates that a LEFT SHIFT is Present. BASO% 0.8 % (Normal) Range: 0-1 EO% 10.6 % (Abnormal) Range: 0-5 MONO% 6.9 % (Normal) Range: 0-10 LY% 36.1 % (Normal) Range: 19-41 NEUT% 45.5 % (Abnormal) Range: 47-70 MPV 9.6 fL (Normal) Range: 6.2-12.0 PLT 339 K/mm3 (Normal) Range: 150-450 RDW SD 42.7 fL (Normal) Range: 35.1-43.9 RDW CV 13.1 % (Normal) Range: 11.6-14.6 MCHC 32.2 {g/gl} (Normal) Range: 32-36 MCH 28.9 pg (Normal) Range: 27.0-32.0 MCV 89.8 fL (Normal) Range: 81-99 HCT 41.6 % (Normal) Range: 37-47 HGB 13.4 g/dL (Normal) Range: 12.0-15.0 RBC 4.63 {M/mm3} (Normal) Range: 4.2-5.4 WBC 8.6 K/mm3 (Normal) Range: 4.4-11.0 48-Oru-85992:17 Comprehensive Metabolic Profil Comments: Test performed at:[facility] [address] [place] [address] GAP 5 (Normal) Range: 5-15 CO2 27.0 mmol/L (Normal) Range: 21.0-32.0 CL 104 mmol/L (Normal) Range: 98-107 K 4.2 mmol/L (Normal) Range: 3.5-5.1 NA 136 mmol/L (Normal) Range: 136-145 T BILI 0.50 mg/dL (Normal) Range: 0.20-1.00 ALT 22 U/L (Normal) Range: 12-78 ALK P 66 U/L (Normal) Range: 50-136 AST 21 U/L (Normal) Range: 15-37 CA 9.2 mg/dL (Normal) Range: 8.5-10.1 A/G 0.7 {RATIO} (Abnormal) Range: 0.9-2.4 GLOB 4.5 g/dL (Abnormal) Range: 2.3-3.5 ALB 3.3 g/dL (Abnormal) Range: 3.4-5.0 T PROT 7.8 g/dL (Normal) Range: 6.4-8.2 BUN/CRE 18.4 {RATIO} (Normal) Range: 10-20 EST GFR - AA 98 mL/min (Normal) EST GFR 81 mL/min (Normal) CREAT,SERUM 0.76 mg/dL (Normal) Range: 0.55-1.20 Comments: Please note revised CREATININE reference range /22/2015. BUN 14 mg/dL (Normal) Range: 7-18 GLU 101 mg/dL (Normal) Range: 70-110 42-Uci-98831:17 CHI + Protein Elect, Serum Comments: Is Patient Fasting? YTest performed at:[facility] [address] [place], [place] [id number] NOTE: Comment (Normal) Comments: Protein electrophoresis scan will follow via computer,mail, or assistant manager delivery. CHI RESULT,S Comment (Normal) Comments: An apparent polyclonal gammopathy: IgM. Crowell and lambdatyping appear increased. A/G RATIO 1.0 (Normal) Range: 0.7-2.0 GLOBULIN, TOTAL 3.5 g/dL (Normal) Range: 2.0-4.5 M-SPIKE (Normal) Comments: Not Observed GAMMA GLOBULIN 1.5 g/dL (Normal) Range: 0.5-1.6 BETA GLOBULIN 1.0 g/dL (Normal) Range: 0.6-1.3 JSKHE-7-TCOO 0.8 g/dL (Normal) Range: 0.4-1.2 XFOWH-3-ONOZ 0.2 g/dL (Normal) Range: 0.1-0.4 ALBUMIN 3.4 g/dL (Normal) Range: 3.2-5.6 IMMUNOGL M 1792 637 mg/dL (Abnormal) Range: 40-230 IMMUNO A 1784 194 mg/dL (Normal) Range: 91-414 IMMUNO G 1776 1349 mg/dL (Normal) Range: 700-1600 PROTEIN,TOTAL 6.9 g/dL (Normal) Range: 6.0-8.5 54-Gjl-10438:17 Immunofixation Urine Comments: Is Patient Fasting? YTest performed at:[facility] [address] [place] [address] CHI Urine Comment (Normal) Comments: No monoclonality detected.Performed at: [facility] LabCo[address] [id number] Director: Jan Wilcox PhD, Phone: [phone] 55-Zok-28357:17 Lipid Profile Comments: Test performed at:[facility] [address] [facility] [address] VLDL 34 mg/dL (Normal) Range: 5-40 LDL 118 mg/dL (Normal) Range: 0-130 HDL 40 mg/dL (Normal) Comments: Reference Range HDL <40 mg/dL Low HDL Cholesterol HDL >or= 60 mg/dL High HDL Cholesterol TRIG 171 mg/dL (Normal) Comments: Serum Triglycerides Reference Interval Normal <150 mg/dL Borderline high 150 - 199 mg/dL High 200 - 499 mg/dL Very High > or = 500 mg/dL CHOL 192 mg/dL (Normal) Comments: <200 mg/dL Desirable 200-240 mg/dL Borderline >240 mg/dL High Risk :17 Uric Acid Comments: Test performed at:[facility] [address] [facility] [place] [address] URIC 7.4 mg/dL (Abnormal) Range: 2.6-6.0 Comments: ADDENDA: non-emergent till apt 8-Mwh-644085:24 HgA1C , Office (73969) HgA1C , Office 6.2 % (Normal) Range: 4.6 - 7.1 :26 CBC W/Diff, Automated Comments: Test performed at:[facility] [address] [facility] [place] [address] Absolute Lymph 3.11 {X10_3/ul} (Normal) Range: 0.83-4.51 Absolute Neut 4.3 {X10_3/uL} (Normal) Range: 2.0-7.7 IM GRAN % 0.300 % (Normal) Range: 0.0-0.9 Comments: IG% - Immature Granulocytes (promyelocytes, myelocytes andmetamyelocytes) > 1% indicates that a LEFT SHIFT is Present. BASO% 0.7 % (Normal) Range: 0-1 EO% 9.3 % (Abnormal) Range: 0-5 MONO% 7.2 % (Normal) Range: 0-10 LY% 34.5 % (Normal) Range: 19-41 NEUT% 48.0 % (Normal) Range: 47-70 MPV 9.4 fL (Normal) Range: 6.2-12.0 PLT 317 K/mm3 (Normal) Range: 150-450 RDW SD 43.2 fL (Normal) Range: 35.1-43.9 RDW CV 13.1 % (Normal) Range: 11.6-14.6 MCHC 31.6 {g/gl} (Abnormal) Range: 32-36 MCH 28.7 pg (Normal) Range: 27.0-32.0 MCV 91.0 fL (Normal) Range: 81-99 HCT 41.5 % (Normal) Range: 37-47 HGB 13.1 g/dL (Normal) Range: 12.0-15.0 RBC 4.56 {M/mm3} (Normal) Range: 4.2-5.4 WBC 9.0 K/mm3 (Normal) Range: 4.4-11.0 :26 Comprehensive Metabolic Profil Comments: Test performed at:[facility] [address] [place] [address] GAP 6 (Normal) Range: 5-15 CO2 29.0 mmol/L (Normal) Range: 21.0-32.0 CL 104 mmol/L (Normal) Range: 98-107 K 4.2 mmol/L (Normal) Range: 3.5-5.1 NA 139 mmol/L (Normal) Range: 136-145 T BILI 0.50 mg/dL (Normal) Range: 0.00-4.00 ALT 25 U/L (Normal) Range: 12-78 ALK P 76 U/L (Normal) Range: 50-136 AST 20 U/L (Normal) Range: 15-37 CA 8.8 mg/dL (Normal) Range: 8.5-10.1 A/G 0.7 {RATIO} (Abnormal) Range: 0.9-2.4 GLOB 4.5 g/dL (Abnormal) Range: 2.7-4.2 ALB 3.3 g/dL (Abnormal) Range: 3.4-5.0 T PROT 7.8 g/dL (Normal) Range: 6.4-8.2 BUN/CRE 17.5 {RATIO} (Normal) Range: 10-20 EST GFR - AA 93 mL/min (Normal) EST GFR 77 mL/min (Normal) CREAT,SERUM 0.8 mg/dL (Normal) Range: 0.6-1.0 BUN 14 mg/dL (Normal) Range: 7-18 GLU 91 mg/dL (Normal) Range: 70-110 :26 Lipid Profile Comments: Test performed at:[facility] [address] [place] [address] VLDL 27 mg/dL (Normal) Range: 5-40 LDL 96 mg/dL (Normal) Range: 0-130 HDL 43 mg/dL (Normal) Comments: Reference Range HDL <40 mg/dL Low HDL Cholesterol HDL >or= 60 mg/dL High HDL Cholesterol TRIG 133 mg/dL (Normal) Range: 0-199 Comments: Serum Triglycerides Reference Interval Normal <150 mg/dL Borderline high 150 - 199 mg/dL High 200 - 499 mg/dL Very High > or = 500 mg/dL CHOL 166 mg/dL (Normal) Comments: <200 mg/dL Desirable 200-240 mg/dL Borderline >240 mg/dL High Risk :26 Microalb:Creat Ratio,Random UR Comments: Test performed at:[facility] [address] [place] [address] MALB:CREAT 7.0 {mg/g_CRE} (Normal) MICROALBUMIN,UR 7.4 mg/L (Normal) UR CREAT 105.5 mg/dL (Normal) :26 Uric Acid Comments: Test performed at:[facility] [address] [place] [address] URIC 7.4 mg/dL (Abnormal) Range: 2.6-6.0 73-Gfy-810811:22 HgA1C , Office (50316) HgA1C , Office 6.3 % (Normal) Range: 4.6 - 7.1 :13 CBCD ALC 2.90 {X10_3/ul} (Normal) Range: 0.83-4.51 ANC 4.7 {X10_3/uL} (Normal) Range: 2.0-7.7 IG% 0.200 % (Normal) Range: 0.0-0.9 Comments: IG% - Immature Granulocytes (promyelocytes, myelocytes andmetamyelocytes) > 1% indicates that a LEFT SHIFT is Present. B% 0.8 % (Normal) Range: 0-1 E% 11.5 % (Abnormal) Range: 0-5 M% 7.3 % (Normal) Range: 0-10 L% 30.6 % (Normal) Range: 19-41 N% 49.6 % (Normal) Range: 47-70 MPV 9.6 fL (Normal) Range: 6.2-12.0 PLT 330 K/mm3 (Normal) Range: 150-450 RDWSD 43.2 fL (Normal) Range: 35.1-43.9 RDWCV 13.1 % (Normal) Range: 11.6-14.6 MCHC 32.1 {g/gl} (Normal) Range: 32-36 MCH 29.1 pg (Normal) Range: 27.0-32.0 MCV 90.9 fL (Normal) Range: 81-99 HCT 42.7 % (Normal) Range: 37-47 HGB 13.7 g/dL (Normal) Range: 12.0-15.0 RBC 4.70 {M/mm3} (Normal) Range: 4.2-5.4 WBC 9.5 K/mm3 (Normal) Range: 4.4-11.0 :13 CMP GAP 7 (Normal) Range: 5-15 CO2 28.0 mmol/L (Normal) Range: 21.0-32.0 CL 105 mmol/L (Normal) Range: 98-107 K 4.1 mmol/L (Normal) Range: 3.5-5.1 NA 140 mmol/L (Normal) Range: 136-145 BIT 0.40 mg/dL (Normal) Range: 0.00-4.00 ALT 47 U/L (Normal) Range: 12-78 ALK 85 U/L (Normal) Range: 50-136 AST 28 U/L (Normal) Range: 15-37 CA 9.4 mg/dL (Normal) Range: 8.5-10.1 AG 0.7 {RATIO} (Abnormal) Range: 0.9-2.4 GLOB 4.6 g/dL (Abnormal) Range: 2.7-4.2 ALB 3.4 g/dL (Normal) Range: 3.4-5.0 TPROT 8.0 g/dL (Normal) Range: 6.4-8.2 BC 15.6 {RATIO} (Normal) Range: 10-20 GFRAA 81 mL/min (Normal) GFR 67 mL/min (Normal) CREAT 0.9 mg/dL (Normal) Range: 0.6-1.0 BUN 14 mg/dL (Normal) Range: 7-18 GLU 86 mg/dL (Normal) Range: 70-110 :13 LIPID Comments: non-emergent till apt VLDL 29 mg/dL (Normal) Range: 5-40 LDL 133 mg/dL (Abnormal) Range: 0-130 HDL 47 mg/dL (Normal) Comments: Reference RangeHDL <40 mg/dL Low HDL CholesterolHDL >or= 60 mg/dL High HDL Cholesterol TRIG 146 mg/dL (Normal) Range: 0-199 Comments: Serum Triglycerides Reference IntervalNormal <150 mg/dLBorderline high 150 - 199 mg/dLHigh 200 - 499 mg/ dLVery High > or = 500 mg/dL CHOL 209 mg/dL (Abnormal) Comments: <200 mg/dL Dghmkugzh216-410 mg/dL Borderline>240 mg/dL High Risk 00-Fal-518502:56 Free K+L Lt Chains,Qn,S Comments: PATIENT NOT FASTINGPERFORMED BY: IbottaRoosevelt General HospitalPhstmy4236 [facility] [id number] Free Lambda Lt Chains,S 16.87 mg/L (Normal) Range: 5.71-26.30 Crowell/Lambda Ratio,S 0.90 (Normal) Range: 0.26-1.65 Free Crowell Lt Chains,S 15.10 mg/L (Normal) Range: 3.30-19.40 44-Ezj-479719:56 Protein Electrophoresis, Serum Comments: PATIENT NOT FASTINGPERFORMED BY: LabTrifecta Investment PartnersInspira [facility] Center Mullica HillElstdv2373 [facility] [id number] (SPEP) (01793) A/G Ratio 1.0 (Normal) Range: 0.7-2.0 Please note: SPRCS (Normal) Comments: Protein electrophoresis scan will follow via computer, mail, orcourier delivery. Globulin, Total 3.5 g/dL (Normal) Range: 2.0-4.5 M-Isaias Not Observed g/dL (Normal) Gamma Globulin 1.5 g/dL (Normal) Range: 0.5-1.6 Xjopx-8-Eqysyxjx 0.9 g/dL (Normal) Range: 0.4-1.2 Beta Globulin 0.9 g/dL (Normal) Range: 0.6-1.3 Atjoz-5-Yoxqpffx 0.2 g/dL (Normal) Range: 0.1-0.4 Albumin 3.6 g/dL (Normal) Range: 3.2-5.6 Protein, Total, Serum 7.1 g/dL (Normal) Range: 6.0-8.5 :56 UPEP (15648) Comments: PATIENT NOT FASTINGPERFORMED BY: PERRY LabCoInspira Medical Center Mullica HillEpfela8167 [facility] [id number] Please note: SPRCS (Normal) Comments: Protein electrophoresis scan will follow via computer, mail, orcourier delivery. Gamma Globulin, U 45.6 % (Normal) M-Isaias, % Comment: % (Normal) Comments: ATYPICAL GAMMA Ayrcd-6-Mfvcsyyf, U 8.7 % (Normal) Beta Globulin, U 33.4 % (Normal) Albumin, U 9.4 % (Normal) Pqcfk-6-Zvjalqna, U 2.9 % (Normal) Protein,Total,Urine 12.0 mg/dL (Normal) Range: 0.0-15.0 :09 HgA1C , Office (24065) HgA1C , Office 6.5 % (Normal) Range: 4.6 - 7.1 :23 BID 0.13 mg/dL (Normal) Range: 0.00-0.30 :23 CBCD Comments: will review at 12/07/13 appt ALC 2.76 {X10_3/ul} (Normal) Range: 0.83-4.51 ANC 3.3 {X10_3/uL} (Normal) Range: 2.0-7.7 IG% 0.100 % (Normal) Range: 0.0-0.9 Comments: IG% - Immature Granulocytes (promyelocytes, myelocytes andmetamyelocytes) > 1% indicates that a LEFT SHIFT is Present. B% 1.4 % (Abnormal) Range: 0-1 E% 16.0 % (Abnormal) Range: 0-5 M% 8.3 % (Normal) Range: 0-10 L% 34.0 % (Normal) Range: 19-41 N% 40.2 % (Abnormal) Range: 47-70 MPV 10.2 fL (Normal) Range: 6.2-12.0 PLT 361 K/mm3 (Normal) Range: 150-450 RDWSD 40.4 fL (Normal) Range: 35.1-43.9 RDWCV 13.0 % (Normal) Range: 11.6-14.6 MCHC 33.0 {g/gl} (Normal) Range: 32-36 MCH 28.8 pg (Normal) Range: 27.0-32.0 HCT 40.6 % (Normal) Range: 37-47 MCV 87.1 fL (Normal) Range: 81-99 HGB 13.4 g/dL (Normal) Range: 12.0-15.0 RBC 4.66 {M/mm3} (Normal) Range: 4.2-5.4 WBC 8.1 K/mm3 (Normal) Range: 4.4-11.0 :23 CMP GAP 5 (Normal) Range: 5-15 CO2 27.0 mmol/L (Normal) Range: 21.0-32.0 CL 105 mmol/L (Normal) Range: 98-107 K 4.0 mmol/L (Normal) Range: 3.5-5.1 NA 137 mmol/L (Normal) Range: 136-145 BIT 0.50 mg/dL (Normal) Range: 0.00-1.00 ALT 49 U/L (Normal) Range: 12-78 ALK 68 U/L (Normal) Range: 45-117 AST 30 U/L (Normal) Range: 15-37 CA 9.1 mg/dL (Normal) Range: 8.5-10.1 AG 0.8 {RATIO} (Abnormal) Range: 0.9-2.4 GLOB 4.4 g/dL (Abnormal) Range: 2.7-4.2 ALB 3.4 g/dL (Normal) Range: 3.4-5.0 TPROT 7.8 g/dL (Normal) Range: 6.4-8.2 BC 20.0 {RATIO} (Normal) Range: 10-20 GFRAA 93 mL/min (Normal) GFR 77 mL/min (Normal) CREAT 0.8 mg/dL (Normal) Range: 0.6-1.0 BUN 16 mg/dL (Normal) Range: 7-18 GLU 89 mg/dL (Normal) Range: 70-110 :23 LIPID VLDL 30 mg/dL (Normal) Range: 5-40 LDL 106 mg/dL (Normal) Range: 0-130 HDL 44 mg/dL (Normal) Comments: Reference RangeHDL <40 mg/dL Low HDL CholesterolHDL >or= 60 mg/dL High HDL Cholesterol TRIG 152 mg/dL (Normal) Range: 0-199 Comments: Serum Triglycerides Reference IntervalNormal <150 mg/dLBorderline high 150 - 199 mg/dLHigh 200 - 499 mg/ dLVery High > or = 500 mg/dL CHOL 180 mg/dL (Normal) Comments: <200 mg/dL Syokvrcgq362-891 mg/dL Borderline>240 mg/dL High Risk :59 LIVER Comments: SPECIMEN HEMOLYZED BID 0.08 mg/dL (Normal) Range: 0.00-0.30 ALT 55 U/L (Normal) Range: 12-78 BIT 0.30 mg/dL (Normal) Range: 0.00-1.00 ALK 65 U/L (Normal) Range: 45-117 AST 32 U/L (Normal) Range: 15-37 ALB 3.5 g/dL (Normal) Range: 3.4-5.0 TPROT 7.5 g/dL (Normal) Range: 6.4-8.2 :54 HgA1C , Office (73077) HgA1C , Office 6.4 % (Normal) Range: 4.6 - 7.1 :27 CBCD ANC 4.0 {X10_3/uL} (Normal) Range: 2.0-7.7 IG% 0.100 % (Normal) Range: 0.0-0.9 Comments: IG% - Immature Granulocytes (promyelocytes, myelocytes andmetamyelocytes) > 1% indicates that a LEFT SHIFT is Present. B% 1.3 % (Abnormal) Range: 0-1 E% 7.2 % (Abnormal) Range: 0-5 M% 7.9 % (Normal) Range: 0-10 L% 36.9 % (Normal) Range: 19-41 N% 46.6 % (Abnormal) Range: 47-70 MPV 10.2 fL (Normal) Range: 6.2-12.0 PLT 391 K/mm3 (Normal) Range: 150-450 RDWCV 13.4 % (Normal) Range: 11.6-14.6 RDWSD 43.0 fL (Normal) Range: 35.1-43.9 MCHC 32.1 {g/gl} (Normal) Range: 32-36 MCH 28.5 pg (Normal) Range: 27.0-32.0 MCV 88.7 fL (Normal) Range: 81-99 HCT 40.8 % (Normal) Range: 37-47 HGB 13.1 g/dL (Normal) Range: 12.0-15.0 RBC 4.60 {M/mm3} (Normal) Range: 4.2-5.4 WBC 8.6 K/mm3 (Normal) Range: 4.4-11.0 28-Sdr-23795:27 CMP LDL 79 mg/dL (Normal) Range: 0-130 VLDL 19 mg/dL (Normal) Range: 5-40 CHOL 144 mg/dL (Normal) Comments: <200 mg/dL Ndyslphvl680-736 mg/dL Borderline>240 mg/dL High Risk HDL 46 mg/dL (Normal) Comments: Reference RangeHDL <40 mg/dL Low HDL CholesterolHDL >or= 60 mg/dL High HDL Cholesterol TRIG 95 mg/dL (Normal) Range: 0-199 Comments: Serum Triglycerides Reference IntervalNormal <150 mg/dLBorderline high 150 - 199 mg/dLHigh 200 - 499 mg/ dLVery High > or = 500 mg/dL GAP 4 (Abnormal) Range: 5-15 CO2 29.0 mmol/L (Normal) Range: 21.0-32.0 CL 107 mmol/L (Normal) Range: 98-107 K 3.9 mmol/L (Normal) Range: 3.5-5.1 BIT 0.30 mg/dL (Normal) Range: 0.00-1.00 NA 140 mmol/L (Normal) Range: 136-145 ALT 104 U/L (Abnormal) Range: 12-78 ALK 48 U/L (Abnormal) Range: 50-136 AST 78 U/L (Abnormal) Range: 15-37 CA 8.8 mg/dL (Normal) Range: 8.5-10.1 AG 1.0 {RATIO} (Normal) Range: 0.9-2.4 GLOB 3.7 g/dL (Normal) Range: 2.7-4.2 ALB 3.8 g/dL (Normal) Range: 3.4-5.0 TPROT 7.5 g/dL (Normal) Range: 6.4-8.2 BC 18.9 {RATIO} (Normal) Range: 10-20 GFRAA 81 mL/min (Normal) GFR 67 mL/min (Normal) CREAT 0.9 mg/dL (Normal) Range: 0.6-1.0 BUN 17 mg/dL (Normal) Range: 7-18 GLU 93 mg/dL (Normal) Range: 70-110 :27 MIACRE CREU 124.7 mg/dL (Normal) MIALB 11.9 mg/L (Normal) tMICROCREAT 9.5 {mg/g_CRE} (Normal) :26 HgA1C , Office (32167) HgA1C , Office 6.3 % (Normal) Range: 4.6 - 7.1 :17 CBCD ANC 4.8 {X10_3/uL} (Normal) Range: 2.0-7.7 B% 0.7 % (Normal) Range: 0-1 IG% 0.400 % (Normal) Range: 0.0-0.9 Comments: IG% - Immature Granulocytes (promyelocytes, myelocytes andmetamyelocytes) > 1% indicates that a LEFT SHIFT is Present. E% 6.8 % (Abnormal) Range: 0-5 M% 7.6 % (Normal) Range: 0-10 L% 39.3 % (Normal) Range: 19-41 N% 45.2 % (Abnormal) Range: 47-70 MPV 9.7 fL (Normal) Range: 6.2-12.0 PLT 393 K/mm3 (Normal) Range: 150-450 RDWSD 42.6 fL (Normal) Range: 35.1-43.9 RDWCV 13.2 % (Normal) Range: 11.6-14.6 MCHC 32.4 {g/gl} (Normal) Range: 32-36 MCH 28.8 pg (Normal) Range: 27.0-32.0 MCV 88.8 fL (Normal) Range: 81-99 HCT 39.5 % (Normal) Range: 37-47 HGB 12.8 g/dL (Normal) Range: 12.0-15.0 RBC 4.45 {M/mm3} (Normal) Range: 4.2-5.4 WBC 10.7 K/mm3 (Normal) Range: 4.4-11.0 :17 CMP GAP 6 (Normal) Range: 5-15 CO2 29.0 mmol/L (Normal) Range: 21.0-32.0 CL 105 mmol/L (Normal) Range: 98-107 K 4.1 mmol/L (Normal) Range: 3.5-5.1 NA 140 mmol/L (Normal) Range: 136-145 BIT 0.50 mg/dL (Normal) Range: 0.00-1.00 ALT 28 U/L (Normal) Range: 12-78 ALK 44 U/L (Abnormal) Range: 50-136 AST 20 U/L (Normal) Range: 15-37 CA 8.8 mg/dL (Normal) Range: 8.5-10.1 AG 1.0 {RATIO} (Normal) Range: 0.9-2.4 GLOB 3.6 g/dL (Normal) Range: 2.7-4.2 ALB 3.6 g/dL (Normal) Range: 3.4-5.0 TPROT 7.2 g/dL (Normal) Range: 6.4-8.2 BC 18.9 {RATIO} (Normal) Range: 10-20 GFRAA 81 mL/min (Normal) GFR 67 mL/min (Normal) CREAT 0.9 mg/dL (Normal) Range: 0.6-1.0 BUN 17 mg/dL (Normal) Range: 7-18 GLU 93 mg/dL (Normal) Range: 70-110 :17 LIPID VLDL 17 mg/dL (Normal) Range: 5-40 HDL 46 mg/dL (Normal) Comments: Reference RangeHDL <40 mg/dL Low HDL CholesterolHDL >or= 60 mg/dL High HDL Cholesterol LDL 69 mg/dL (Normal) Range: 0-130 TRIG 87 mg/dL (Normal) Range: 0-199 Comments: Serum Triglycerides Reference IntervalNormal <150 mg/dLBorderline high 150 - 199 mg/dLHigh 200 - 499 mg/ dLVery High > or = 500 mg/dL CHOL 132 mg/dL (Normal) Comments: <200 mg/dL [id number] mg/dL Borderline>240 mg/dL High Risk :17 MIACRE tMICROCREAT 7.5 {mg/g_CRE} (Normal) MIALB 9.8 mg/L (Normal) CREU 129.4 mg/dL (Normal) :17 URIC 4.5 mg/dL (Normal) Range: 2.6-6.0 :22 HgA1C , Office (92402) HgA1C , Office 6.3 % (Normal) Range: 4.6 - 7.1 :16 HgA1C , Office (63787) HgA1C , Office 5.8 % (Normal) Range: 4.6 - 7.1 :13 CMP GAP 10 (Normal) Range: 5-15 CO2 28.0 mmol/L (Normal) Range: 21.0-32.0 CL 105 mmol/L (Normal) Range: 98-107 K 4.0 mmol/L (Normal) Range: 3.5-5.1 NA 143 mmol/L (Normal) Range: 136-145 BIT 0.40 mg/dL (Normal) Range: 0.00-1.00 ALT 28 U/L (Normal) Range: 12-78 ALK 38 U/L (Abnormal) Range: 50-136 AST 19 U/L (Normal) Range: 15-37 CA 9.2 mg/dL (Normal) Range: 8.5-10.1 AG 1.0 {RATIO} (Normal) Range: 0.9-2.4 GLOB 3.9 g/dL (Normal) Range: 2.7-4.2 ALB 3.9 g/dL (Normal) Range: 3.4-5.0 TPROT 7.8 g/dL (Normal) Range: 6.4-8.2 BC 21.3 {RATIO} (Abnormal) Range: 10-20 GFRAA 93 mL/min (Normal) GFR 77 mL/min (Normal) CREAT 0.8 mg/dL (Normal) Range: 0.6-1.0 BUN 17 mg/dL (Normal) Range: 7-18 GLU 99 mg/dL (Normal) Range: 70-110 :13 LIPID VLDL 21 mg/dL (Normal) Range: 5-40 LDL 85 mg/dL (Normal) Range: 0-130 HDL 51 mg/dL (Normal) Comments: Reference Range HDL <40 mg/dL Low HDL Cholesterol HDL >or= 60 mg/dL High HDL Cholesterol TRIG 105 mg/dL (Normal) Comments: Serum Triglycerides Reference Interval Normal <150 mg/dL Borderline high 150 - 199 mg/dL High 200 - 499 mg/dL Very High > or = 500 mg/dL CHOL 157 mg/dL (Normal) Comments: <200 mg/dL Desirable 200-240 mg/dL Borderline >240 mg/dL High Risk :13 MIACRE tMICROCREAT 6.6 {mg/g_CRE} (Normal) MIALB 5.5 mg/L (Normal) CREU 82.7 mg/dL (Normal) :22 CBCMD RBCM NORM C+C {NORMAL} (Normal) PE ADEQUATE (Normal) EOS 10 % (Abnormal) Range: 0-5 MON 5 % (Normal) Range: 0-10 LYMPH 34 % (Normal) Range: 19-41 PMN 51 % (Normal) Range: 47-70 ENEDINA 100 (Normal) ANC 5.1 3/uL (Normal) Range: 2.0-7.7 PLT 299 K/mm3 (Normal) Range: 150-450 RDW 13.1 % (Normal) Range: 11.6-14.6 MCHC 34.3 g/dL (Normal) Range: 32-36 MCH 30.0 pg (Normal) Range: 27.0-32.0 MCV 87.2 fL (Normal) Range: 81-99 HCT 38.4 % (Normal) Range: 37-47 HGB 13.2 g.dL (Normal) Range: 12.0-15.0 RBC 4.41 {M/mm3} (Normal) Range: 4.2-5.4 WBC 9.8 K/mm3 (Normal) Range: 4.4-11.0 :22 CMP GAP 9 (Normal) Range: 5-15 CO2 26.0 mmol/L (Normal) Range: 21.0-32.0 CL 103 mmol/L (Normal) Range: 98-107 K 4.0 mmol/L (Normal) Range: 3.5-5.1 NA 138 mmol/L (Normal) Range: 136-145 BIT 0.30 mg/dL (Normal) Range: 0.00-1.00 ALT 25 U/L (Normal) Range: 12-78 ALK 68 U/L (Normal) Range: 50-136 AST 18 U/L (Normal) Range: 15-37 CA 8.5 mg/dL (Normal) Range: 8.5-10.1 AG 0.8 {RATIO} (Abnormal) Range: 0.9-2.4 GLOB 4.1 g/dL (Normal) Range: 2.7-4.2 ALB 3.4 g/dL (Normal) Range: 3.4-5.0 TPROT 7.5 g/dL (Normal) Range: 6.4-8.2 BC 17.5 {RATIO} (Normal) Range: 10-20 GFRAA 93 mL/min (Normal) GFR 77 mL/min (Normal) CREAT 0.8 mg/dL (Normal) Range: 0.6-1.0 BUN 14 mg/dL (Normal) Range: 7-18 GLU 92 mg/dL (Normal) Range: 70-110 :22 LIPID LDL 72 mg/dL (Normal) Range: 0-130 VLDL 43 mg/dL (Abnormal) Range: 5-40 HDL 35 mg/dL (Abnormal) Comments: Reference Range HDL <40 mg/dL Low HDL Cholesterol HDL >or= 60 mg/dL High HDL Cholesterol TRIG 213 mg/dL (Abnormal) Comments: Serum Triglycerides Reference Interval Normal <150 mg/dL Borderline high 150 - 199 mg/dL High 200 - 499 mg/dL Very High > or = 500 mg/dL CHOL 150 mg/dL (Normal) Comments: <200 mg/dL Desirable 200-240 mg/dL Borderline >240 mg/dL High Risk :18 HgA1C , Office (32925) HgA1C , Office 6.3 % (Normal) Range: 4.6 - 7.1 :18 Blood Glucose , Office (19153) Blood Glucose , Office 108 (Normal) Comments: has eaten in last 2 H :14 CBCMD RBCM NORM C+C {NORMAL} (Normal) PE ADEQUATE (Normal) EOS 8 % (Abnormal) Range: 0-5 MON 5 % (Normal) Range: 0-10 LYMPH 30 % (Normal) Range: 19-41 PMN 57 % (Normal) Range: 47-70 ENEDINA 100 (Normal) ANC 5.1 3/uL (Normal) Range: 2.0-7.7 PLT 297 K/mm3 (Normal) Range: 150-450 RDW 12.5 % (Normal) Range: 11.6-14.6 MCHC 34.0 g/dL (Normal) Range: 32-36 MCH 30.3 pg (Normal) Range: 27.0-32.0 MCV 88.9 fL (Normal) Range: 81-99 HCT 38.8 % (Normal) Range: 37-47 HGB 13.2 g/dL (Normal) Range: 12.0-16.0 RBC 4.37 {M/mm3} (Normal) Range: 4.2-5.4 WBC 9.5 K/mm3 (Normal) Range: 4.4-11.0 :14 CMP Comments: f/u 07/30/ GAP 8 (Normal) Range: 5-15 CO2 28.0 mmol/L (Normal) Range: 21.0-32.0 CL 105 mmol/L (Normal) Range: 98-107 K 4.2 mmol/L (Normal) Range: 3.5-5.1 NA 141 mmol/L (Normal) Range: 136-145 BIT 0.50 mg/dL (Normal) Range: 0.00-1.00 ALT 26 U/L (Normal) Range: 12-78 ALK 64 U/L (Normal) Range: 50-136 AST 16 U/L (Normal) Range: 15-37 CA 8.9 mg/dL (Normal) Range: 8.5-10.1 AG 0.9 {RATIO} (Normal) Range: 0.9-2.4 GLOB 4.0 g/dL (Normal) Range: 2.7-4.2 ALB 3.7 g/dL (Normal) Range: 3.4-5.0 TPROT 7.7 g/dL (Normal) Range: 6.4-8.2 BC 12.2 {RATIO} (Normal) Range: 10-20 GFRAA 81 mL/min (Normal) GFR 67 mL/min (Normal) CREAT 0.9 mg/dL (Normal) Range: 0.6-1.0 BUN 11 mg/dL (Normal) Range: 7-18 GLU 99 mg/dL (Normal) Range: 70-110 :14 LIPID LDL 75 mg/dL (Normal) Range: 0-130 VLDL 36 mg/dL (Normal) Range: 5-40 HDL 44 mg/dL (Normal) Comments: Reference Range HDL <40 mg/dL Low HDL Cholesterol HDL >or= 60 mg/dL High HDL Cholesterol TRIG 181 mg/dL (Normal) Comments: Serum Triglycerides Reference Interval Normal <150 mg/dL Borderline high 150 - 199 mg/dL High 200 - 499 mg/dL Very High > or = 500 mg/dL CHOL 155 mg/dL (Normal) Comments: <200 mg/dL Desirable 200-240 mg/dL Borderline >240 mg/dL High Risk :08 HgA1C , Office (02139) HgA1C , Office 6.1 % (Normal) Range: 4.6 - 7.1 :08 Blood Glucose , Office (14088) Blood Glucose , Office 98 (Normal) :16 CBCD,SMEAR DIFF RED CELL MORPH SeeNote {NORMAL} (Normal) Comments: Result: NORM C+C PLT EST SeeNote (Normal) Comments: Result: ADEQUATE EOS 9 % (Abnormal) Range: 0-5 MONOCYTE 4 % (Normal) Range: 0-10 LYMPH 42 % (Abnormal) Range: 19-41 SEGS 45 % (Abnormal) Range: 47-70 CELLS COUNTED 100 (Normal) ABSOLUTE NEUT 3.4 3/uL (Normal) Range: 2.0-7.7 PLT 332 K/mm3 (Normal) Range: 150-450 RDW 13.4 % (Normal) Range: 11.6-14.6 MCHC 34.1 g/dL (Normal) Range: 32-36 MCH 29.6 pg (Normal) Range: 27.0-32.0 MCV 86.8 fL (Normal) Range: 81-99 HCT 39.4 % (Normal) Range: 37-47 HGB 13.5 g/dL (Normal) Range: 12.0-16.0 RBC 4.54 {M/mm3} (Normal) Range: 4.2-5.4 WBC 7.9 K/mm3 (Normal) Range: 4.4-11.0 :16 COMP METABOLIC GAP 9 (Normal) Range: 5-15 CO2 28.0 mmol/L (Normal) Range: 21.0-32.0 CL 103 mmol/L (Normal) Range: 98-107 K 4.0 mmol/L (Normal) Range: 3.5-5.1 NA 140 mmol/L (Normal) Range: 136-145 T BILI 0.60 mg/dL (Normal) Range: 0.00-1.00 ALT 28 U/L (Normal) Range: 12-78 ALK P 74 U/L (Normal) Range: 50-136 AST 21 U/L (Normal) Range: 15-37 CA 8.5 mg/dL (Normal) Range: 8.5-10.1 A/G 0.9 {RATIO} (Normal) Range: 0.9-2.4 GLOB 4.1 g/dL (Normal) Range: 2.7-4.2 ALB 3.6 g/dL (Normal) Range: 3.4-5.0 T PROT 7.7 g/dL (Normal) Range: 6.4-8.2 BUN/CRE 16.3 {RATIO} (Normal) Range: 10-20 EST GFR - AA 93 mL/min (Normal) EST GFR 77 mL/min (Normal) CREAT,SERUM 0.8 mg/dL (Normal) Range: 0.6-1.0 BUN 13 mg/dL (Normal) Range: 7-18 GLU 98 mg/dL (Normal) Range: 70-110 :16 LIPID VLDL 27 mg/dL (Normal) Range: 5-40 LDL 111 mg/dL (Normal) Range: 0-130 HDL 43 mg/dL (Normal) Comments: Reference Range HDL <40 mg/dL Low HDL Cholesterol HDL >or= 60 mg/dL High HDL Cholesterol TRIG 137 mg/dL (Normal) Comments: Serum Triglycerides Reference Interval Normal <150 mg/dL Borderline high 150 - 199 mg/dL High 200 - 499 mg/dL Very High > or = 500 mg/dL CHOL 181 mg/dL (Normal) Comments: <200 mg/dL Desirable 200-240 mg/dL Borderline >240 mg/dL High Risk :16 MICROALB:CRE UR MALB:CREAT <TEST NOT PERFORMED> {mg/g_CRE} (Normal) MICROALBUMIN,UR < 5.0 mg/L (Normal) UR CREAT 63.1 mg/dL (Normal) :35 HgA1C , Office (65010) HgA1C , Office 6.5 % (Normal) Range: 4.6 - 7.1 :35 Blood Glucose , Office (01368) Blood Glucose , Office 101 (Normal) :20 MYOCARD PERF STRESS/REST MULT Radiology Report See Note (Normal) Comments: MYOCARDIAL PERFUSION SCAN TECHNIQUEThe patient was injected with 11 mCi of Tc99m Cardiolite and subsequentlyrest SPECT Cardiolite nuclear imaging was obtained in the horizontal long, vertical long, and short axes views. The patient exercised on a Bruceprotocol for 9 minutes achieving a peak heart rate of 160 beats perminute (101% predicted maximum heart rate) with a peak blood pressure of152/64 mmHg and a peak MET capacity of 10 METs. The patient was injectedwith 31.9 mCi of Tc99m Cardiolite and subsequently stress SPECTCardiolite nuclear imaging was obtained in the horizontal long, verticallong, and short axes views. Gated Cardiolite study at peak stress wasobtained. INTERPRETATIONRest and stress SPECT Cardiolite nuclear imaging both demonstrate areasof extracardiac/gastrointestinal tracer upt genesis especially located nearthe inferior and inferoapical segments being more prominent at rest asopposed to stress. Otherwise there appears to be relative uniform traceruptake and myocardial perfusion appearing within normal limits. There isend systolic thickening and brightening. The gated Cardiolite studydemonstrates myocardial thickening and inward wall motion. The reportedLVEF is 68%. IMPRESSI ON1. Rest and stress SPECT Cardiolite nuclear imaging demonstrate findingscompatible with extracardiac/gastrointestinal tracer uptake but otherwiserelative uniform tracer uptake and myocardial perfusio n appearing withinnormal limits with no myocardial perfusion changes considered diagnosticfor stress induced myocardial ischemia or previous myocardial injury/infarction.2. The gated Cardiolite study r eports an LVEF of 68%. Dictated on 11/28/10 1248 by Zain SALVADOR,TannerTranscribed on 11/28/10 1319 by Apolinar DA SILVA by Zain SALVADORTanner on 11/28/10 1414 Sign by: Tanner Pittman MD :14 CBCD,SMEAR DIFF Comments: appt 12/11/10 RED CELL MORPH SeeNote {NORMAL} (Normal) Comments: Result: NORM C+C PLT EST SeeNote (Normal) Comments: Result: ADEQUATE EOS 11 % (Abnormal) Range: 0-5 MONOCYTE 1 % (Normal) Range: 0-10 LYMPH 38 % (Normal) Range: 19-41 BAND 2 % (Normal) Range: 0-5 SEGS 48 % (Normal) Range: 47-70 CELLS COUNTED 100 (Normal) ABSOLUTE NEUT 4.2 3/uL (Normal) Range: 2.0-7.7 PLT 307 K/mm3 (Normal) Range: 150-450 RDW 13.3 % (Normal) Range: 11.6-14.6 MCHC 33.3 g/dL (Normal) Range: 32-36 MCH 30.2 pg (Normal) Range: 27.0-32.0 MCV 90.8 fL (Normal) Range: 81-99 HCT 39.8 % (Normal) Range: 37-47 HGB 13.2 g/dL (Normal) Range: 12.0-16.0 RBC 4.38 {M/mm3} (Normal) Range: 4.2-5.4 WBC 8.3 K/mm3 (Normal) Range: 4.4-11.0 :14 COMP METABOLIC GAP 8 (Normal) Range: 5-15 CO2 29.0 mmol/L (Normal) Range: 21.0-32.0 CL 102 mmol/L (Normal) Range: 98-107 K 4.3 mmol/L (Normal) Range: 3.5-5.1 NA 139 mmol/L (Normal) Range: 136-145 T BILI 0.50 mg/dL (Normal) Range: 0.00-1.00 ALT 24 U/L (Normal) Range: 12-78 ALK P 74 U/L (Normal) Range: 50-136 AST 14 U/L (Abnormal) Range: 15-37 CA 9.3 mg/dL (Normal) Range: 8.5-10.1 A/G 0.9 {RATIO} (Normal) Range: 0.9-2.4 GLOB 4.0 g/dL (Normal) Range: 2.7-4.2 ALB 3.6 g/dL (Normal) Range: 3.4-5.0 T PROT 7.6 g/dL (Normal) Range: 6.4-8.2 BUN/CRE 15.0 {RATIO} (Normal) Range: 10-20 EST GFR - AA 93 mL/min (Normal) EST GFR 77 mL/min (Normal) CREAT,SERUM 0.8 mg/dL (Normal) Range: 0.6-1.0 BUN 12 mg/dL (Normal) Range: 7-18 GLU 90 mg/dL (Normal) Range: 70-110 :14 LIPID VLDL 32 mg/dL (Normal) Range: 5-40 LDL 105 mg/dL (Normal) Range: 0-130 HDL 38 mg/dL (Abnormal) Comments: Reference Range HDL <40 mg/dL Low HDL Cholesterol HDL >or= 60 mg/dL High HDL Cholesterol TRIG 159 mg/dL (Normal) Comments: Serum Triglycerides Reference Interval Normal <150 mg/dL Borderline high 150 - 199 mg/dL High 200 - 499 mg/dL Very High > or = 500 mg/dL CHOL 175 mg/dL (Normal) Comments: <200 mg/dL Desirable 200-240 mg/dL Borderline >240 mg/dL High Risk :14 TSH 1.53 {uIU/mL} (Normal) Range: 0.358-3.74 :44 HgA1C , Office (84470) HgA1C , Office 6.3 % (Normal) Range: 4.6 - 7.1 :44 Blood Glucose , Office (94834) Blood Glucose , Office 136 (Normal) :09 CBCD,SMEAR DIFF Comments: appt 07/21/10 RED CELL MORPH SeeNote {NORMAL} (Normal) Comments: Result: NORM C+C PLT EST SeeNote (Normal) Comments: Result: ADEQUATE EOS 13 % (Abnormal) Range: 0-5 MONOCYTE 2 % (Normal) Range: 0-10 CELLS COUNTED 100 (Normal) LYMPH 47 % (Abnormal) Range: 19-41 SEGS 38 % (Abnormal) Range: 47-70 ABSOLUTE NEUT 4.1 3/uL (Normal) Range: 2.0-7.7 PLT 315 K/mm3 (Normal) Range: 150-450 RDW 13.4 % (Normal) Range: 11.6-14.6 MCH 30.4 pg (Normal) Range: 27.0-32.0 MCHC 34.2 g/dL (Normal) Range: 32-36 MCV 88.7 fL (Normal) Range: 81-99 HCT 38.5 % (Normal) Range: 37-47 HGB 13.2 g/dL (Normal) Range: 12.0-16.0 RBC 4.34 {M/mm3} (Normal) Range: 4.2-5.4 WBC 9.6 K/mm3 (Normal) Range: 4.4-11.0 :09 COMP METABOLIC CL 104 mmol/L (Normal) Range: 98-107 CO2 26.0 mmol/L (Normal) Range: 21.0-32.0 GAP 10 (Normal) Range: 5-15 K 3.9 mmol/L (Normal) Range: 3.5-5.1 NA 140 mmol/L (Normal) Range: 136-145 T BILI 0.50 mg/dL (Normal) Range: 0.00-1.00 ALT 22 U/L (Normal) Range: 12-78 ALK P 65 U/L (Normal) Range: 50-136 AST 16 U/L (Normal) Range: 15-37 CA 9.0 mg/dL (Normal) Range: 8.5-10.1 A/G 0.9 {RATIO} (Normal) Range: 0.9-2.4 GLOB 3.9 g/dL (Normal) Range: 2.7-4.2 ALB 3.4 g/dL (Normal) Range: 3.4-5.0 T PROT 7.3 g/dL (Normal) Range: 6.4-8.2 BUN/CRE 13.3 {RATIO} (Normal) Range: 10-20 EST GFR - AA 82 mL/min (Normal) EST GFR 68 mL/min (Normal) CREAT,SERUM 0.9 mg/dL (Normal) Range: 0.6-1.0 BUN 12 mg/dL (Normal) Range: 7-18 GLU 102 mg/dL (Normal) Range: 70-110 :09 LIPID HDL 46 mg/dL (Normal) Comments: Reference Range HDL <40 mg/dL Low HDL Cholesterol HDL >or= 60 mg/dL High HDL Cholesterol LDL 105 mg/dL (Normal) Range: 0-130 VLDL 45 mg/dL (Abnormal) Range: 5-40 TRIG 223 mg/dL (Abnormal) Comments: Serum Triglycerides Reference Interval Normal <150 mg/dL Borderline high 150 - 199 mg/dL High 200 - 499 mg/dL Very High > or = 500 mg/dL CHOL 196 mg/dL (Normal) Comments: <200 mg/dL Desirable 200-240 mg/dL Borderline >240 mg/dL High Risk :09 VIT D,25 66679 36.0 ng/mL (Normal) Range: 32.0-100.0 Comments: Recent studies consider the lower limit of 32.0 ng/mL to amaury threshold for optimal health.Michael GONG. J Nutr. 2004;135(2):317-22.Performed at: [facility] Lab[address] [id number]Lab Director: Angie Grace MD, Phone: [phone] [id number] HgA1C , Office (22478) HgA1C , Office 6.6 % (Normal) Range: 4.6 - 7.1 :07 Blood Glucose , Office (29041) Blood Glucose , Office 128 (Normal) :13 CBCD,SMEAR DIFF RED CELL MORPH SeeNote {NORMAL} (Normal) Comments: Result: NORM C+C ABSOLUTE NEUT 4.1 3/uL (Normal) Range: 2.0-7.7 BASOPHIL 1 % (Normal) Range: 0-1 CELLS COUNTED 100 (Normal) EOS 26 % (Abnormal) Range: 0-5 LYMPH 31 % (Normal) Range: 19-41 MONOCYTE 4 % (Normal) Range: 0-10 PLT 294 K/mm3 (Normal) Range: 150-450 PLT EST SeeNote (Normal) Comments: Result: ADEQUATE SEGS 38 % (Abnormal) Range: 47-70 HCT 38.9 % (Normal) Range: 37-47 HGB 13.2 g/dL (Normal) Range: 12.0-16.0 MCH 30.4 pg (Normal) Range: 27.0-32.0 MCHC 33.8 g/dL (Normal) Range: 32-36 MCV 89.9 fL (Normal) Range: 81-99 RBC 4.33 {M/mm3} (Normal) Range: 4.2-5.4 RDW 13.4 % (Normal) Range: 11.6-14.6 WBC 9.4 K/mm3 (Normal) Range: 4.4-11.0 :13 COMP METABOLIC ALK P 79 U/L (Normal) Range: 50-136 ALT 23 U/L (Normal) Range: 12-78 AST 17 U/L (Normal) Range: 15-37 CL 103 mmol/L (Normal) Range: 98-107 CO2 27.0 mmol/L (Normal) Range: 21.0-32.0 GAP 8 (Normal) Range: 5-15 K 4.2 mmol/L (Normal) Range: 3.5-5.1 NA 138 mmol/L (Normal) Range: 136-145 T BILI 0.40 mg/dL (Normal) Range: 0.00-1.00 A/G 0.7 {RATIO} (Abnormal) Range: 0.9-2.4 ALB 3.2 g/dL (Abnormal) Range: 3.4-5.0 BUN/CRE 12.5 {RATIO} (Normal) Range: 10-20 CA 9.1 mg/dL (Normal) Range: 8.5-10.1 EST GFR 78 mL/min (Normal) EST GFR - AA 95 mL/min (Normal) GLOB 4.3 g/dL (Abnormal) Range: 2.7-4.2 T PROT 7.5 g/dL (Normal) Range: 6.4-8.2 BUN 10 mg/dL (Normal) Range: 7-18 CREAT,SERUM 0.8 mg/dL (Normal) Range: 0.6-1.0 GLU 93 mg/dL (Normal) Range: 70-110 :13 LIPID LDL 71 mg/dL (Normal) Range: 0-130 VLDL 40 mg/dL (Normal) Range: 5-40 CHOL 148 mg/dL (Normal) Comments: <200 mg/dL Wypoahwyn093-813 mg/dL Borderline>240 mg/dL High Risk HDL 37 mg/dL (Abnormal) Comments: Reference RangeHDL <40 mg/dL Low HDL CholesterolHDL >or= 60 mg/dL High HDL Cholesterol TRIG 199 mg/dL (Normal) Comments: Serum Triglycerides Reference IntervalNormal <150 mg/dLBorderline high 150 - 199 mg/dLHigh 200 - 499 mg/ dLVery High > or = 500 mg/dL :13 MICROALB:CRE UR MALB:CREAT 9.7 {mg/g_CRE} (Normal) MICROALBUMIN,UR 9.3 mg/L (Normal) UR CREAT 95.4 mg/dL (Normal) :12 HgA1C , Office (00600) HgA1C , Office 6.5 % (Normal) Range: 4.6 - 7.1 :12 Blood Glucose , Office (41586) Blood Glucose , Office 142 (Normal) :39 CBCD,SMEAR DIFF PLT EST SeeNote (Normal) Comments: Result: ADEQUATE RED CELL MORPH SeeNote {NORMAL} (Normal) Comments: Result: NORM C+C ABSOLUTE NEUT 4.2 3/uL (Normal) Range: 2.0-7.7 CELLS COUNTED 100 (Normal) EOS 12 % (Abnormal) Range: 0-5 LYMPH 37 % (Normal) Range: 19-41 MCH 30.4 pg (Normal) Range: 27.0-32.0 MCHC 34.5 g/dL (Normal) Range: 32-36 MCV 88.0 fL (Normal) Range: 81-99 MONOCYTE 6 % (Normal) Range: 0-10 PLT 302 K/mm3 (Normal) Range: 150-450 RDW 13.2 % (Normal) Range: 11.6-14.6 SEGS 45 % (Abnormal) Range: 47-70 HCT 37.4 % (Normal) Range: 37-47 HGB 12.9 g/dL (Normal) Range: 12.0-16.0 RBC 4.25 {M/mm3} (Normal) Range: 4.2-5.4 WBC 9.0 K/mm3 (Normal) Range: 4.4-11.0 :39 COMP METABOLIC ALK P 60 U/L (Normal) Range: 50-136 ALT 28 U/L (Normal) Range: 12-78 AST 15 U/L (Normal) Range: 15-37 CL 104 mmol/L (Normal) Range: 98-107 CO2 27.0 mmol/L (Normal) Range: 21.0-32.0 GAP 9 (Normal) Range: 5-15 K 4.0 mmol/L (Normal) Range: 3.5-5.1 NA 140 mmol/L (Normal) Range: 136-145 T BILI 0.50 mg/dL (Normal) Range: 0.00-1.00 A/G 0.9 {RATIO} (Normal) Range: 0.9-2.4 ALB 3.5 g/dL (Normal) Range: 3.4-5.0 BUN 14 mg/dL (Normal) Range: 7-18 BUN/CRE 15.6 {RATIO} (Normal) Range: 10-20 CA 8.8 mg/dL (Normal) Range: 8.5-10.1 CREAT,SERUM 0.9 mg/dL (Normal) Range: 0.6-1.0 EST GFR 68 mL/min (Normal) EST GFR - AA 82 mL/min (Normal) GLOB 3.8 g/dL (Normal) Range: 2.7-4.2 GLU 90 mg/dL (Normal) Range: 70-110 T PROT 7.3 g/dL (Normal) Range: 6.4-8.2 :39 LIPID CHOL 139 mg/dL (Normal) Comments: <200 mg/dL Bsqyyeikr744-744 mg/dL Borderline>240 mg/dL High Risk HDL 42 mg/dL (Normal) Comments: Reference RangeHDL <40 mg/dL Low HDL CholesterolHDL >or= 60 mg/dL High HDL Cholesterol LDL 72 mg/dL (Normal) Range: 0-130 TRIG 127 mg/dL (Normal) Comments: Serum Triglycerides Reference IntervalNormal <150 mg/dLBorderline high 150 - 199 mg/dLHigh 200 - 499 mg/ dLVery High > or = 500 mg/dL VLDL 25 mg/dL (Normal) Range: 5-40 :34 VIT D,25 70332 48.4 ng/mL (Normal) Range: 32.0-100.0 Comments: Recent studies consider the lower limit of 32.0 ng/mL to amaury threshold for optimal health.Michael GONG. J Nutr. 2004;135(2):317-22.Performed at: - [facility], [place] [id number] Director: Pavel Wild MD :00 Antinuclear Antibodies Comments: PERFORMED BY: [address] [id number] BY: [facility] [facility] [id number] Direct JOSE ALEJANDRO Direct Negative (Normal) :00 C-Reactive Protein, 1.5 mg/L (Normal) Comments: PERFORMED BY: [address] [id number] BY: [facility] [id number] [facility] [id number] Quant Range: 0.0-4.9 :00 Rheumatoid Arthritis Comments: PERFORMED BY: [address] [id number] BY: [facility] [facility] [id number] Factor RA Latex Turbid. 4.9 {IU/mL} Range: 0.0-13.9 (Normal) : Sedimentation 17 mm/h (Normal) Comments: PERFORMED BY: [address] [id number] BY: [facility]6[address] [facility] [id number] 00 Rate-Westergren Range: 0-30 :00 Strongyloides Ab IgG, MENDEZ Comments: PERFORMED BY: [address] [id number] BY: [facility] [id number] [facility] [id number] Strongyloides Ab, IgG by 0.69 {IV} (Normal) Comments: REFERENCE INTERVAL: Strongyloides Ab1.49 IV or less....... Negative - No significantlevel of Strongyloides IgGantibody detected.1.50 - 2.10 IV ....... Equivocal - Questionablepresence of Strongyloides I MENDEZ gGantibody detected. Repeattesting in 10-14 days may behelpful.2.11 IV or greater ... Positive - IgG antibodies toStrongyloides detected, whichmay suggest current or pastinfection.Analyte Specific Reage nts (ASR) are used in many laboratorytests necessary for standard medical care and generally donot require U.S.Food and Drug Administration approval. Thistest was developed and its performance character istics de-termined by [facility]. It has not been approvedby the U.S. Food and Drug Administration. This test shouldnot be regarded as investigational or for research use. :14 CBCD,SMEAR DIFF RED CELL MORPH SeeNote {NORMAL} (Normal) Comments: Result: NORM C+C ABSOLUTE NEUT 4.3 3/uL (Normal) Range: 2.0-7.7 CELLS COUNTED 100 (Normal) EOS 14 % (Abnormal) Range: 0-5 LYMPH 40 % (Normal) Range: 19-41 MONOCYTE 4 % (Normal) Range: 0-10 PLT EST SeeNote (Normal) Comments: Result: ADEQUATE SEGS 42 % (Abnormal) Range: 47-70 HCT 40.2 % (Normal) Range: 37-47 HGB 13.4 g/dL (Normal) Range: 12.0-16.0 MCH 29.7 pg (Normal) Range: 27.0-32.0 MCHC 33.2 g/dL (Normal) Range: 32-36 MCV 89.5 fL (Normal) Range: 81-99 PLT 322 K/mm3 (Normal) Range: 150-450 RBC 4.50 {M/mm3} (Normal) Range: 4.2-5.4 RDW 13.9 % (Normal) Range: 11.6-14.6 WBC 10.4 K/mm3 (Normal) Range: 4.4-11.0 :34 HgA1C , Office (25982) HgA1C , Office 6.5 % (Normal) Range: 4.6 - 7.1 :34 Blood Glucose , Office (34155) Blood Glucose , Office 127 (Normal) :39 CBCD,SMEAR DIFF EOS 17 % (Abnormal) Range: 0-5 PLT EST SeeNote (Normal) Comments: Result: ADEQUATE RED CELL MORPH SeeNote {NORMAL} (Normal) Comments: Result: NORM C+C BAND 1 % (Normal) Range: 0-5 CELLS COUNTED 100 (Normal) HCT 40.0 % (Normal) Range: 37-47 HGB 13.4 g/dL (Normal) Range: 12.0-16.0 LYMPH 35 % (Normal) Range: 19-41 MCH 29.9 pg (Normal) Range: 27.0-32.0 MCHC 33.6 g/dL (Normal) Range: 32-36 MCV 89.1 fL (Normal) Range: 81-99 MONOCYTE 5 % (Normal) Range: 0-10 PLT 291 K/mm3 (Normal) Range: 150-450 RBC 4.49 {M/mm3} (Normal) Range: 4.2-5.4 RDW 12.8 % (Normal) Range: 11.6-14.6 SEGS 42 % (Abnormal) Range: 47-70 WBC 10.2 K/mm3 (Normal) Range: 4.4-11.0 :39 COMP METABOLIC CL 105 mmol/L (Normal) Range: 98-107 CO2 27.0 mmol/L (Normal) Range: 21.0-32.0 GAP 9 (Normal) Range: 5-15 K 4.0 mmol/L (Normal) Range: 3.5-5.1 A/G 1.0 {RATIO} (Normal) Range: 0.9-2.4 ALB 3.5 g/dL (Normal) Range: 3.4-5.0 ALK P 62 U/L (Normal) Range: 50-136 ALT 27 U/L (Normal) Range: 12-78 AST 12 U/L (Abnormal) Range: 15-37 BUN 12 mg/dL (Normal) Range: 7-18 BUN/CRE 15.0 {RATIO} (Normal) Range: 10-20 CA 8.6 mg/dL (Normal) Range: 8.5-10.1 CREAT,SERUM 0.8 mg/dL (Normal) Range: 0.6-1.0 EST GFR 78 mL/min (Normal) EST GFR - AA 95 mL/min (Normal) GLOB 3.5 g/dL (Normal) Range: 2.7-4.2 NA 141 mmol/L (Normal) Range: 136-145 T BILI 0.50 mg/dL (Normal) Range: 0.00-1.00 T PROT 7.0 g/dL (Normal) Range: 6.4-8.2 GLU 91 mg/dL (Normal) Range: 70-110 :39 LIPID VLDL 43 mg/dL (Abnormal) Range: 5-40 CHOL 210 mg/dL (Abnormal) Comments: <200 mg/dL [id number] mg/dL Borderline>240 mg/dL High Risk HDL 41 mg/dL (Normal) Comments: Reference RangeHDL <40 mg/dL Low HDL CholesterolHDL >or= 60 mg/dL High HDL Cholesterol LDL 126 mg/dL (Normal) Range: 0-130 TRIG 216 mg/dL (Abnormal) Comments: Serum Triglycerides Reference IntervalNormal <150 mg/dLBorderline high 150 - 199 mg/dLHigh 200 - 499 mg/ dLVery High > or = 500 mg/dL [id number] CHEST, PA AND LATERAL Radiology Report See Note (Normal) Comments: Exam Number: [id number] PA AND LATERAL VIEW OF THE CHEST [id number] woman with shortness of breath. PA AND LATERAL VIEWS OF THE CHEST Comparison of February 26, 2006. Cardiac and medi astinal silh ouettes are normal. The lungs are clear.Pleural margins are sharp. Osteopenia but no compression deformities. IMPRESSIONNo evidence of acute disease. Reported By: ELIAS BACON M.D. [id number] Urinalysis, Office (97160) UA - BILIRUBIN Negative (Normal) UA - BLOOD Negative (Normal) UA - GLUCOSE Negative (Normal) UA - KETONES Negative mg/dL (Normal) UA - LEUKOCYTE ESTERASE Negative (Normal) UA - NITRITE Negative (Normal) UA - PH 5.0 (Normal) UA - PROTEIN Negative mg/dL (Normal) UA - SPECIFIC GRAVITY 1.010 (Normal) URINE UROBILINGN ROCKY TIMED Normal mg/dL (Normal) [id number] HgA1C , Office (62089) HgA1C , Office 6.3 % (Normal) Range: 4.6 - 7.1 [id number] Blood Glucose , Office (77977) Blood Glucose , Office 118 (Normal) :15 LIPID CHOL 179 mg/dL (Normal) Comments: <200 mg/dL Desirable 200-240 mg/dL Borderline >240 mg/dL High Risk HDL 39 mg/dL (Normal) Comments: Reference Range HDL <40 mg/dL Low HDL Cholesterol HDL >or= 60 mg/dL High HDL Cholesterol LDL 109 mg/dL (Normal) Range: 0-130 TRIG 153 mg/dL (Normal) Comments: Serum Triglycerides Reference Interval Normal <150 mg/dL Borderline high 150 - 199 mg/dL High 200 - 499 mg/dL Very High > or = 500 mg/dL VLDL 31 mg/dL (Normal) Range: 5-40 :15 LIVER ALB 3.2 g/dL (Abnormal) Range: 3.4-5.0 ALK P 79 U/L (Normal) Range: 50-136 ALT 26 U/L (Abnormal) Range: 30-65 AST 11 U/L (Abnormal) Range: 15-37 D BILI 0.09 mg/dL (Normal) Range: 0.00-0.30 T BILI 0.20 mg/dL (Normal) Range: 0.00-1.00 T PROT 7.0 g/dL (Normal) Range: 6.4-8.2 [id number]:15 MICROALB:CRE UR MALB:CREAT 14.7 {mg/g_CRE} (Normal) MICROALBUMIN,UR 23.2 mg/L (Normal) UR CREAT 157.0 mg/dL (Normal) [id number] LQDPAP [id number] Comments: CYTOLOGY INFORMATION:- CLINICAL INFORMATION: - DATE LMP/MENOPAUSE: DATE NOT GIVEN MENOPAUSE- COLLECTION VIAL: Thin Prep Vial- [employer] SOURCE: CERVICAL/ENDOCERVICAL- COLLECTION TECHNIQUE: BRUSH/SPATULA ADEQ Comment (Normal) Comments: Satisfactory for evaluation. Endocervical and/or squamous metaplasticcells (endocervical component) are present. COMM . (Normal) COMMENT Comment (Normal) Comments: This liquid based ThinPrep(R) pap test was screened withthe use of an image guided system. HPV RFLX Comment (Normal) Comments: The HPV DNA reflex criteria were not met with this specimenresult therefore, no HPV testing was performed. .Performed At: [address] [id number] [facility] Comment (Normal) Comments: The Pap smear is a screening test designed to aid in thedetection of premalignant and malignant conditions of theuterine cervix. It is not a diagnostic procedure andshould not be used as the sole means of detecting cervicalcancer. Both false-positive and false-negative reports dooccur. . PERFORM Comment (Normal) Comments: Mirian Martins, Cant Hooker (ASCP) DIAGN Comment (Normal) Comments: NEGATIVE FOR INTRAEPITHELIAL LESION AND MALIGNANCY.CELLULAR CHANGES ASSOCIATED WITH INFLAMMATION ARE PRESENT. :18 Blood Glucose , Office (12506) Blood Glucose , Office 112 (Normal) :18 HgA1C , Office (91157) HgA1C , Office 6.0 % (Normal) Range: 4.6 - 7.1 :31 CBCD,SMEAR DIFF CELLS COUNTED 100 (Normal) EOS 5 % (Normal) Range: 0-5 HCT 41.0 % (Normal) Range: 37-47 HGB 13.9 g/dL (Normal) Range: 12.0-16.0 LYMPH 33 % (Normal) Range: 19-41 MCH 30.3 pg (Normal) Range: 27.0-32.0 MCHC 33.8 g/dL (Normal) Range: 32-36 MCV 89.7 fL (Normal) Range: 81-99 MONOCYTE 10 % (Normal) Range: 0-10 PLT 321 K/mm3 (Normal) Range: 150-450 PLT EST SeeNote (Normal) Comments: Result: ADEQUATE RBC 4.58 {M/mm3} (Normal) Range: 4.2-5.4 RDW 13.0 % (Normal) Range: 11.6-14.6 RED CELL MORPH SeeNote {NORMAL} (Normal) Comments: Result: NORM C+C SEGS 52 % (Normal) Range: 47-70 WBC 9.1 K/mm3 (Normal) Range: 4.4-11.0 :31 LIPID CHOL 188 mg/dL (Normal) Comments: <200 mg/dL Desirable 200-240 mg/dL Borderline >240 mg/dL High Risk HDL 41 mg/dL (Normal) Comments: Reference Range HDL <40 mg/dL Low HDL Cholesterol HDL >or= 60 mg/dL High HDL Cholesterol LDL 117 mg/dL (Normal) Range: 0-130 TRIG 152 mg/dL (Normal) Comments: Serum Triglycerides Reference Interval Normal <150 mg/dL Borderline high 150 - 199 mg/dL High 200 - 499 mg/dL Very High > or = 500 mg/dL VLDL 30 mg/dL (Normal) Range: 5-40 :31 LIVER ALB 3.6 g/dL (Normal) Range: 3.4-5.0 ALK P 67 U/L (Normal) Range: 50-136 ALT 31 U/L (Normal) Range: 30-65 AST 17 U/L (Normal) Range: 15-37 D BILI 0.10 mg/dL (Normal) Range: 0.00-0.30 T BILI 0.53 mg/dL (Normal) Range: 0.00-1.00 T PROT 7.4 g/dL (Normal) Range: 6.4-8.2 :23 CULTURE, URINE URINE CULTURE See Note {CFU/mL} (Normal) Comments: COLONY COUNT <1000 ORGANISM 1: MIXED GRAM POS & NEG ORGANISMS :33 Urinalysis, Office (09410) UA - BILIRUBIN Negative (Normal) UA - BLOOD Negative (Normal) UA - GLUCOSE Negative (Normal) UA - KETONES Negative mg/dL (Normal) UA - LEUKOCYTE ESTERASE Negative (Normal) UA - NITRITE Negative (Normal) UA - PH 5.0 (Normal) UA - PROTEIN Negative mg/dL (Normal) UA - SPECIFIC GRAVITY 1.015 (Normal) URINE UROBILINGN ROCKY TIMED 2 mg/dL (Normal) :32 HgA1C , Office (56062) HgA1C , Office 6.1 % (Normal) Range: 4.6 - 7.1 :32 Blood Glucose , Office (22757) Blood Glucose , Office 112 (Normal) :17 LIPID CHOL 157 mg/dL (Normal) Comments: <200 mg/dL Desirable 200-240 mg/dL Borderline >240 mg/dL High Risk HDL 38 mg/dL (Normal) Comments: Reference Range HDL <40 mg/dL Low HDL Cholesterol HDL >or= 60 mg/dL High HDL Cholesterol LDL 93 mg/dL (Normal) Range: 0-130 TRIG 128 mg/dL (Normal) Comments: Serum Triglycerides Reference Interval Normal <150 mg/dL Borderline high 150 - 199 mg/dL High 200 - 499 mg/dL Very High > or = 500 mg/dL VLDL 26 mg/dL (Normal) Range: 5-40 :17 LIVER ALB 3.7 g/dL (Normal) Range: 3.4-5.0 ALK P 61 U/L (Normal) Range: 50-136 ALT 39 U/L (Normal) Range: 30-65 AST 20 U/L (Normal) Range: 15-37 D BILI 0.08 mg/dL (Normal) Range: 0.00-0.30 T BILI 0.42 mg/dL (Normal) Range: 0.00-1.00 T PROT 7.4 g/dL (Normal) Range: 6.4-8.2 :42 HgA1C , Office (90407) HgA1C , Office 5.9 % (Normal) Range: 4.6 - 7.1 :42 Blood Glucose , Office (25371) Blood Glucose , Office 116 (Normal) :32 LIPID CHOL 200 mg/dL (Normal) Comments: <200 mg/dL Desirable 200-240 mg/dL Borderline >240 mg/dL High Risk HDL 37 mg/dL (Normal) Comments: Reference Range HDL <40 mg/dL Low HDL Cholesterol HDL >or= 60 mg/dL High HDL Cholesterol LDL 112 mg/dL (Normal) Range: 0-130 TRIG 254 mg/dL (Abnormal) Comments: Serum Triglycerides Reference Interval Normal <150 mg/dL Borderline high 150 - 199 mg/dL High 200 - 499 mg/dL Very High > or = 500 mg/dL VLDL 51 mg/dL (Abnormal) Range: -40 :32 LIVER ALB 3.4 g/dL (Normal) Range: 3.4-5.0 ALK P 71 U/L (Normal) Range: 50-136 ALT 38 [iU]/L (Normal) Range: 30-65 AST 23 U/L (Normal) Range: 15-37 D BILI 0.05 mg/dL (Normal) Range: 0.00-0.30 T BILI 0.30 mg/dL (Normal) Range: 0.00-1.00 T PROT 7.2 g/dL (Normal) Range: 6.4-8.2 :19 Blood Glucose , Office (71427) Blood Glucose , Office 107 (Normal) Comments: :19 HgA1C , Office (26710) HgA1C , Office 5.8 % (Normal) Range: 4.6 - 7.1 Comments: :32 CBCD,SMEAR DIFF BASOPHIL 1 % (Normal) Range: 0-1 CELLS COUNTED 100 (Normal) EOS 15 % (Abnormal) Range: 0-5 HCT 40.1 % (Normal) Range: 37-47 HGB 13.9 g/dL (Normal) Range: 12.0-16.0 LYMPH 39 % (Normal) Range: 19-41 MCH 30.7 pg (Normal) Range: 27.0-32.0 MCHC 34.6 g/dL (Normal) Range: 32-36 MCV 88.7 fL (Normal) Range: 81-99 MONOCYTE 10 % (Normal) Range: 0-10 PLT 314 K/mm3 (Normal) Range: 150-450 PLT EST SeeNote (Normal) Comments: Result: ADEQUATE RBC 4.52 {M/mm3} (Normal) Range: 4.2-5.4 RDW 12.8 % (Normal) Range: 11.6-14.6 RED CELL MORPH SeeNote {NORMAL} (Normal) Comments: Result: NORM C&C SEGS 35 % (Abnormal) Range: 47-70 WBC 7.5 K/mm3 (Normal) Range: 4.4-11.0 :32 COMP METABOLIC A/G 0.9 {RATIO} (Normal) Range: 0.9-2.4 ALB 3.4 g/dL (Normal) Range: 3.4-5.0 ALK P 64 U/L (Normal) Range: 50-136 ALT 37 [iU]/L (Normal) Range: 30-65 AST 21 U/L (Normal) Range: 15-37 BUN 12 mg/dL (Normal) Range: 7-18 BUN/CRE 12.0 {RATIO} (Normal) Range: 10-20 CA 8.7 mg/dL (Normal) Range: 8.5-10.1 CL 102 mmol/L (Normal) Range: 98-107 CO2 28.9 mmol/L (Normal) Range: 21.0-32.0 Comments: Please Note Reference Interval Change CREAT,SERUM 1.0 mg/dL (Normal) Range: 0.6-1.0 GAP 7 (Normal) Range: 5-15 GLOB 3.8 g/dL (Normal) Range: 2.7-4.2 Comments: Please Note Reference Interval Change GLU 92 mg/dL (Normal) Range: 70-110 K 4.0 mmol/L (Normal) Range: 3.5-5.1 NA 138 mmol/L (Normal) Range: 136-145 T BILI 0.45 mg/dL (Normal) Range: 0.00-1.00 T PROT 7.2 g/dL (Normal) Range: 6.4-8.2 :32 D BILI 0.10 mg/dL (Normal) Range: 0.00-0.30 :32 LIPID CHOL 205 mg/dL (Abnormal) Comments: <200 mg/dL Desirable 200-240 mg/dL Borderline >240 mg/dL High Risk HDL 38 mg/dL (Normal) Comments: Reference Range HDL <40 mg/dL Low HDL Cholesterol HDL >or= 60 mg/dL High HDL Cholesterol LDL 124 mg/dL (Normal) Range: 0-130 TRIG 217 mg/dL (Abnormal) Comments: Serum Triglycerides Reference Interval Normal <150 mg/dL Borderline high 150 - 199 mg/dL High 200 - 499 mg/dL Very High > or = 500 mg/dL VLDL 43 mg/dL (Abnormal) Range: 5-40 :32 MICROALBUMIN,UR 3.0 mg/L (Normal) :32 ROUTINE UA BILIRUBIN URINE SeeNote (Normal) Comments: Result: NEGATIVE CLARITY CLEAR (Normal) COLOR YELLOW (Normal) GLUCOSE, UR SeeNote (Normal) Comments: Result: NEGATIVE KETONE UR SeeNote mg/dL (Normal) Comments: Result: NEGATIVE LEUK ESTERASE SeeNote (Normal) Comments: Result: NEGATIVE NITRITE UR SeeNote (Normal) Comments: Result: NEGATIVE OCCULT BLOOD-UR SeeNote (Normal) Comments: Result: NEGATIVE pH UR 6.0 (Normal) Range: 5.0-8.0 PROT DIPSTX SeeNote (Normal) Comments: Result: NEGATIVE SP.GR. DIPSTX 1.015 (Normal) Range: 1.002-1.030 UROBILI 0.2 EU/dl (Normal) Range: 0.2 - 1.0 :32 TSH 1.97 {uIU/mL} (Normal) Range: 0.34-4.82 :55 Blood Glucose , Office (93625) Blood Glucose , Office 138 (Normal) Comments: 2HPPBS :45 ALDOST,U24 4291 Comments: 24 H URINE TV = 1230 ML ALDOSTERONE,U24 10 {ug/24_hr} (Normal) Range: 2-21 Comments: 1 mo. 1 - 11 1- 12 mos. 1 - 22 1- 16 yrs. 2 - 16 Adult Ranges Normal diet 2 - 21 Low salt 17 - 44 High salt 0 - 14Performed At: [address] [id number] ALDOSTERONE,UR 8 ug/L (Normal) :45 FUNMI U24 [id number] Comments: 24 H URINE TV = 1230 ML CORTISOL,FR U24 59 {ug/24_hr} (Normal) CORTISOL,U FREE 48 ug/L (Normal) :15 CAT+VMA [id number] DOPAMINE,U24 195 Range: 65-610 {ug/24_hr} Comments: TESTING PERFORMED AT [facility]. ORIGINAL REPORT ON FILE IN LAB CONTAINS ADDITIONAL TEST SITE INFORMATION. (Normal) DOPAMINE,UR 186 ug/L (Normal) EPINEPHRINE, 7 ug/L UR (Normal) EPINEPHRINE,U 7 Range: 0-24 24 {ug/24_hr} (Normal) NOREPINEPH,U2 46 Range: 0-140 4 {ug/24_hr} (Normal) NOREPINEPH,UR 44 ug/L (Normal) VMA,24UR 4.3 Range: 1.8-6.7 {mg/24_hr} (Normal) VMA,UR 4.1 mg/L (Normal) :15 METAN,U24 4234 METANEPH,U24 112 {ug/24_hr} (Normal) Range: 35-460 Comments: Performed At: [address] [id number] METANEPHRINE,UR 107 ug/L (Normal) NORMETANEPH,U24 336 {ug/24_hr} (Normal) Range: 110-1050 NORMETANEPH,UR 320 ug/L (Normal) :42 MYOCARD PERF SPECT REST/STRESS Radiology Report See Note (Normal) Comments: Exam Number: [id number] MYOCARDIAL PERFUSION SCAN 12.6 millicuries of Tc99m Sestamibi was injected at rest. The patientthen exercised according to the Aniceto regular protocol for a totaldura tion of 7 mi nutes and 31 seconds attaining 96% of the maximumpredicted heart rate for a work load of 9.3 METs. At peak exercise,31.9 millicuries of Tc99m Sestamibi was injected. Stress images werethen obtained. St ress and rest images were reconstructed and comparedin the short axis, vertical long and horizontal long axes. Gatedimages were also obtained. Review of the stress images demonstrate normal uptake of t racer notedin all areas of the myocardium. The resting images similarlydemonstrate uniform uptake of tracer in all areas of the myocardium.The gated ejection fraction is 73%. CONCLUSION1. Normal exerc ise myocardial perfusion scan.2. Preserved ejection fraction. Reported By: MARIALUISA CROW M.D. :49 CBCD,SMEAR DIFF BAND 4 % (Normal) Range: 0-5 CELLS COUNTED 100 (Normal) EOS 12 % (Abnormal) Range: 0-5 HCT 41.0 % (Normal) Range: 37-47 HGB 13.9 g/dL (Normal) Range: 12.0-16.0 LYMPH 47 % (Abnormal) Range: 19-41 MCH 29.9 pg (Normal) Range: 27.0-32.0 MCHC 34.0 g/dL (Normal) Range: 32-36 MCV 88.2 fL (Normal) Range: 81-99 MONOCYTE 4 % (Normal) Range: 0-10 PLT 332 K/mm3 (Normal) Range: 150-450 PLT EST SeeNote (Normal) Comments: Result: ADEQUATE RBC 4.65 {M/mm3} (Normal) Range: 4.2-5.4 RDW 13.0 % (Normal) Range: 11.6-14.6 RED CELL MORPH SeeNote {NORMAL} (Normal) Comments: Result: NORM C&C SEGS 33 % (Abnormal) Range: 47-70 WBC 7.5 K/mm3 (Normal) Range: 4.4-11.0 :49 COMP METABOLIC A/G 0.9 {RATIO} (Normal) Range: 0.9-2.4 ALB 3.4 g/dL (Normal) Range: 3.4-5.0 ALK P 68 U/L (Normal) Range: 50-136 ALT 46 [iU]/L (Normal) Range: 30-65 AST 24 U/L (Normal) Range: 15-37 BUN 12 mg/dL (Normal) Range: 7-18 BUN/CRE 15.0 {RATIO} (Normal) Range: 10-20 CA 8.2 mg/dL (Abnormal) Range: 8.5-10.1 CL 103 mmol/L (Normal) Range: 98-107 CO2 26.9 mmol/L (Normal) Range: 22.0-29.0 CREAT,SERUM 0.8 mg/dL (Normal) Range: 0.6-1.0 GAP 10 (Normal) Range: 5-15 GLOB 3.8 g/dL (Abnormal) Range: 2.3-3.5 GLU 96 mg/dL (Normal) Range: 70-110 K 4.0 mmol/L (Normal) Range: 3.5-5.1 NA 140 mmol/L (Normal) Range: 136-145 T BILI 0.48 mg/dL (Normal) Range: 0.00-1.00 T PROT 7.2 g/dL (Normal) Range: 6.4-8.2 :49 H.PYLORI [id number] < 0.9 U/mL (Normal) Range: 0.0-0.8 Comments: Negative <0.9 Indeterminate 0.9 - 1.0 Positive >1.0Performed At: [facility] [place], [place] [id number] :49 TSH 1.86 {uIU/mL} (Normal) Range: 0.34-4.82 :26 HgA1C , Office (56956) Comments: [facility] HgA1C , Office 5.7 % (Normal) Range: 4.6 - 7.1 :26 Blood Glucose , Office (52642) Comments: [facility] Blood Glucose , Office 116 (Normal) :00 COMP METABOLIC A/G 0.9 {RATIO} (Normal) Range: 0.9-2.4 ALB 3.4 g/dL (Normal) Range: 3.4-5.0 ALK P 59 U/L (Normal) Range: 50-136 ALT 35 [iU]/L (Normal) Range: 30-65 AST 18 U/L (Normal) Range: 15-37 BUN 13 mg/dL (Normal) Range: 7-18 BUN/CRE 14.4 {RATIO} (Normal) Range: 10-20 CA 8.9 mg/dL (Normal) Range: 8.5-10.1 CL 105 mmol/L (Normal) Range: 98-107 CO2 27.7 mmol/L (Normal) Range: 22.0-29.0 CREAT,SERUM 0.9 mg/dL (Normal) Range: 0.6-1.0 GAP 6 (Normal) Range: 5-15 GLOB 3.6 g/dL (Abnormal) Range: 2.3-3.5 GLU 95 mg/dL (Normal) Range: 70-110 K 4.0 mmol/L (Normal) Range: 3.5-5.1 NA 139 mmol/L (Normal) Range: 136-145 T BILI 0.38 mg/dL (Normal) Range: 0.00-1.00 T PROT 7.0 g/dL (Normal) Range: 6.4-8.2 :00 LIPID CHOL 194 mg/dL (Normal) Comments: <200 mg/dL Desirable 200-240 mg/dL Borderline >240 mg/dL High Risk HDL 37 mg/dL (Normal) Comments: Reference Range HDL <40 mg/dL Low HDL Cholesterol HDL >or= 60 mg/dL High HDL Cholesterol LDL 125 mg/dL (Normal) Range: 0-130 TRIG 161 mg/dL (Normal) Comments: Serum Triglycerides Reference Interval Normal <150 mg/dL Borderline high 150 - 199 mg/dL High 200 - 499 mg/dL Very High > or = 500 mg/dL VLDL 32 mg/dL (Normal) Range: 5-40 :35 Blood Glucose , Office (72972) Blood Glucose , Office 140 (Normal) :34 HgA1C , Office (30606) HgA1C , Office 6.8 % (Normal) Range: 4.6 - 7.1 :10 GLUP 154 mg/dL (Abnormal) Comments: GLU,2HPPG 75gm GLUC PPG GLUP from [id number]. Comments: Glucose result from 140 to <200 mg/dL suggestsIMPAIRED GLUCOSE HOMEOSTASIS per A.D.A. criteria. :59 CBCD,SMEAR DIFF BAND 1 % (Normal) Range: 0-5 CELLS COUNTED 100 (Normal) EOS 8 % (Abnormal) Range: 0-5 HCT 40.3 % (Normal) Range: 37-47 HGB 13.7 g/dL (Normal) Range: 12.0-16.0 LYMPH 35 % (Normal) Range: 19-41 MCH 30.0 pg (Normal) Range: 27.0-32.0 MCHC 34.1 g/dL (Normal) Range: 32-36 MCV 88.3 fL (Normal) Range: 81-99 MONOCYTE 7 % (Normal) Range: 0-10 PLT 298 K/mm3 (Normal) Range: 150-450 PLT EST SeeNote (Normal) Comments: Result: ADEQUATE RBC 4.56 {M/mm3} (Normal) Range: 4.2-5.4 RDW 13.1 % (Normal) Range: 11.6-14.6 RED CELL MORPH SeeNote {NORMAL} (Normal) Comments: Result: NORM C&C SEGS 49 % (Normal) Range: 47-70 WBC 8.3 K/mm3 (Normal) Range: 4.4-11.0 :59 COMP METABOLIC A/G 1.0 {RATIO} (Normal) Range: 0.9-2.4 ALB 3.5 g/dL (Normal) Range: 3.4-5.0 ALK P 70 U/L (Normal) Range: 50-136 ALT 38 [iU]/L (Normal) Range: 30-65 AST 20 U/L (Normal) Range: 15-37 BUN 11 mg/dL (Normal) Range: 7-18 BUN/CRE 13.8 {RATIO} (Normal) Range: 10-20 CA 8.9 mg/dL (Normal) Range: 8.5-10.1 CL 105 mmol/L (Normal) Range: 98-107 CO2 28.5 mmol/L (Normal) Range: 22.0-29.0 CREAT,SERUM 0.8 mg/dL (Normal) Range: 0.6-1.0 GAP 7 (Normal) Range: 5-15 GLOB 3.4 g/dL (Normal) Range: 2.3-3.5 GLU 99 mg/dL (Normal) Range: 70-110 K 4.2 mmol/L (Normal) Range: 3.5-5.1 NA 140 mmol/L (Normal) Range: 136-145 T BILI 0.48 mg/dL (Normal) Range: 0.00-1.00 T PROT 6.9 g/dL (Normal) Range: 6.4-8.2 :59 COMPLETE UA BACTERIA 0 SEEN {/hpf} (Normal) BILIRUBIN URINE SeeNote (Normal) Comments: Result: NEGATIVE CLARITY CLEAR (Normal) COLOR YELLOW (Normal) GLUCOSE, UR SeeNote (Normal) Comments: Result: NEGATIVE KETONE UR SeeNote mg/dL (Normal) Comments: Result: NEGATIVE LEUK ESTERASE SeeNote (Normal) Comments: Result: NEGATIVE MUCUS, URINE 0 SEEN {/hpf} (Normal) NITRITE UR SeeNote (Normal) Comments: Result: NEGATIVE OCCULT BLOOD-UR SeeNote (Normal) Comments: Result: NEGATIVE pH UR 5.5 (Normal) Range: 5.0-8.0 PROT DIPSTX SeeNote (Normal) Comments: Result: NEGATIVE RBC-UA 0 SEEN {/hpf} (Normal) Range: 0-5 SP.GR. DIPSTX >=1.030 (Normal) Range: 1.002-1.030 SQUAM EPI SeeNote {/hpf} (Normal) Range: 5-10 Comments: Result: 0-5 SEEN UROBILI 0.2 EU/dl (Normal) Range: 0.2 - 1.0 WBC 0 SEEN {/hpf} (Normal) Range: 0-5 :59 MICROALB:CRE UR MALB:CREAT 3.2 {mg/g_CRE} (Normal) MICROALBUMIN,UR 5.8 mg/L (Normal) UR CREAT 180.9 mg/dL (Normal) :59 PFLIP CHOL 194 mg/dL (Normal) Comments: <200 mg/dL Desirable 200-240 mg/dL Borderline >240 mg/dL High Risk HDL 36 mg/dL (Normal) Comments: Reference Range HDL <40 mg/dL Low HDL Cholesterol HDL >or= 60 mg/dL High HDL Cholesterol LDL 126 mg/dL (Normal) Range: 0-130 TRIG 161 mg/dL (Normal) Comments: Serum Triglycerides Reference Interval Normal <150 mg/dL Borderline high 150 - 199 mg/dL High 200 - 499 mg/dL Very High > or = 500 mg/dL VLDL 32 mg/dL (Normal) Range: 5-40 :59 TSH 1.49 {uIU/mL} (Normal) Range: 0.34-4.82 Plan of Care Name Dates Details Instructions BMI 34.0-34.9,adult : Follow up if no improvement or if symptoms worsen Indication: BMI 34.0-34.9,adult Non-smoker : Follow up if no improvement or if symptoms worsen Indication: Non-smoker Low back pain with sciatica : Low Back Pain Red Flags Indication: Low back pain with sciatica Non-smoker : Eprescribed prescriptions (G8553) Indication: Non-smoker Post-nasal drainage : Follow up if no improvement or if symptoms worsen Indication: Post-nasal drainage Sore throat : Sore Throat *: acute pharyngitis Indication: Sore throat BMI 34.0-34.9,adult : Eprescribed prescriptions (G8553) Indication: BMI 34.0-34.9,adult Anemia, unspecified (Renamed from Anemia) : Reviewed Lab Indication: Anemia, unspecified (Renamed from Anemia) BMI 33.0-33.9,adult : Eprescribed prescriptions ([id number]) Indication: BMI 33.0-33.9,adult Nonsquamous nonsmall cell neoplasm of lung, left : Reviewed Junior Financial Analyst Letter Indication: Nonsquamous nonsmall cell neoplasm of lung, left Vitamin D deficiency : Reviewed Lab Indication: Vitamin D deficiency Controlled diabetes mellitus type II without complication : Follow up in 3 months Indication: Controlled diabetes mellitus type II without complication Mixed hyperlipidemia : Cholesterol mgmt Indication: Mixed hyperlipidemia Gastroesophageal reflux disease without esophagitis : GERD Education Indication: Gastroesophageal reflux disease without esophagitis Controlled diabetes mellitus type II without complication : *Diabetes Education Indication: Controlled diabetes mellitus type II without complication Non-smoker : Eprescribed prescriptions (G8553) Indication: Non-smoker Controlled diabetes mellitus type II without complication : Follow up in 6 months Indication: Controlled diabetes mellitus type II without complication Benign essential hypertension : Diet, Exercise, and Wt loss Indication: Benign essential hypertension Benign essential hypertension : HTN/CAD Red Flags Indication: Benign essential hypertension Mixed hyperlipidemia : Cholesterol mgmt Indication: Mixed hyperlipidemia Mixed hyperlipidemia : Reviewed Lab Indication: Mixed hyperlipidemia Anemia, unspecified (Renamed from Anemia) : Anemia: diagnosis and treatment Indication: Anemia, unspecified (Renamed from Anemia) Lymphadenopathy, cervical : Reviewed Lab Indication: Lymphadenopathy, cervical Lymphadenopathy, cervical : Reviewed Diagnostic Tests Indication: Lymphadenopathy, cervical Lymphadenopathy, cervical : Follow up in 1-2 week Indication: Lymphadenopathy, cervical Encounter for annual general medical examination with abnormal findings in adult : fall reduction handout Indication: Encounter for annual general medical examination with abnormal findings in adult Encounter for annual general medical examination with abnormal findings in adult : elderly packet given Indication: Encounter for annual general medical examination with abnormal findings in adult Encounter for annual general medical examination with abnormal findings in adult : advance planning information Indication: Encounter for annual general medical examination with abnormal findings in adult Encounter for annual general medical examination with abnormal findings in adult : Self breast exam Indication: Encounter for annual general medical examination with abnormal findings in adult Encounter for screening for malignant neoplasm of colon (Renamed from Special screening for malignant neoplasms, colon) : *Colon Cancer Screening Indication: Encounter for screening for malignant neoplasm of colon (Renamed from Special screening for malignant neoplasms, colon) Cramp of both lower extremities : Reviewed Lab Indication: Cramp of both lower extremities Controlled diabetes mellitus type II without complication : Follow up in 3 months Indication: Controlled diabetes mellitus type II without complication Encounter for screening for malignant neoplasm of colon (Renamed from Special screening for malignant neoplasms, colon) : *Colon Cancer Screening Indication: Encounter for screening for malignant neoplasm of colon (Renamed from Special screening for malignant neoplasms, colon) Benign essential hypertension : Diet, Exercise, and Wt loss Indication: Benign essential hypertension Benign essential hypertension : HTN/CAD Red Flags Indication: Benign essential hypertension Mixed hyperlipidemia : Reviewed Lab Indication: Mixed hyperlipidemia Gastroesophageal reflux disease without esophagitis : GERD Education Indication: Gastroesophageal reflux disease without esophagitis Elevated serum globulin level : Reviewed Diagnostic Tests:- bone survey x-rays negative no destrructive or lytic findings Indication: Elevated serum globulin level Elevated serum globulin level : Reviewed Lab Indication: Elevated serum globulin level Elevated serum globulin level : Reviewed Junior Financial Analyst Letter Indication: Elevated serum globulin level Controlled diabetes mellitus type II without complication : Follow up in 3 months Indication: Controlled diabetes mellitus type II without complication Monoclonal gammopathy : Reviewed Lab Indication: Monoclonal gammopathy Monoclonal gammopathy : Reviewed Diagnostic Tests Indication: Monoclonal gammopathy Monoclonal gammopathy : Reviewed Junior Financial Analyst Letter Indication: Monoclonal gammopathy Controlled diabetes mellitus type II without complication : Eprescribed prescriptions (G8553) Indication: Controlled diabetes mellitus type II without complication Benign essential hypertension : Follow up in 4 months Indication: Benign essential hypertension Controlled diabetes mellitus type II without complication : Eprescribed prescriptions (G8553) Indication: Controlled diabetes mellitus type II without complication Controlled diabetes mellitus type II without complication : Eprescribed prescriptions ([id number]) Indication: Controlled diabetes mellitus type II without complication Mixed hyperlipidemia : Diet, Exercise, and Wt loss Indication: Mixed hyperlipidemia Controlled diabetes mellitus type II without complication : Eprescribed prescriptions (G8553) Indication: Controlled diabetes mellitus type II without complication Controlled diabetes mellitus type II without complication : Eprescribed prescriptions ([id number]) Indication: Controlled diabetes mellitus type II without complication Controlled diabetes mellitus type II without complication : *Cholesterol - Medication Side Effects Indication: Controlled diabetes mellitus type II without complication Controlled diabetes mellitus type II without complication : Eprescribed prescriptions ([id number]) Indication: Controlled diabetes mellitus type II without complication Controlled diabetes mellitus type II without complication : Diet, Exercise, and Wt loss Indication: Controlled diabetes mellitus type II without complication Controlled diabetes mellitus type II without complication : Eprescribed prescriptions (G8553) Indication: Controlled diabetes mellitus type II without complication Left hip pain : Follow up in 2 weeks Indication: Left hip pain Wrist pain : *Carpal Tunnel Education Indication: Wrist pain Wrist pain : Cock Up Splint Indication: Wrist pain Gout : Gout: uric acid Indication: Gout Foot pain : Gout: feet Indication: Foot pain Foot pain : Foot Care: feet Indication: Foot pain Controlled diabetes mellitus type II without complication : Diet, Exercise, and Wt loss Indication: Controlled diabetes mellitus type II without complication Gastroesophageal reflux disease without esophagitis : Heartburn *: heartburn Indication: Gastroesophageal reflux disease without esophagitis Mixed hyperlipidemia : Diet, Exercise, and Wt loss Indication: Mixed hyperlipidemia Controlled diabetes mellitus type II without complication : Diet, Exercise, and Wt loss Indication: Controlled diabetes mellitus type II without complication Mixed hyperlipidemia : *Cholesterol - Medication Side Effects Indication: Mixed hyperlipidemia Encounter for immunization : Shingles Vaccine Education 2005 Indication: Encounter for immunization Controlled diabetes mellitus type II without complication : High Blood Pressure (Essential Hypertension) *: blood pressure Indication: Controlled diabetes mellitus type II without complication Controlled diabetes mellitus type II without complication : Diet, Exercise, and Wt loss Indication: Controlled diabetes mellitus type II without complication Mixed hyperlipidemia : Diet, Exercise, and Wt loss Indication: Mixed hyperlipidemia Mixed hyperlipidemia : Diet, Exercise, and Wt loss Indication: Mixed hyperlipidemia Mixed hyperlipidemia : *Cholesterol - Medication Side Effects Indication: Mixed hyperlipidemia Controlled diabetes mellitus type II without complication : Diet, Exercise, and Wt loss Indication: Controlled diabetes mellitus type II without complication Mixed hyperlipidemia : Cholesterol - Medication Side Effects Indication: Mixed hyperlipidemia Mixed hyperlipidemia : Cholesterol - Medication Side Effects Indication: Mixed hyperlipidemia Gastroesophageal reflux disease without esophagitis : FOLLOW UP IF NO IMPROVEMENT OR IF SYMPTOMS WORSEN Indication: Gastroesophageal reflux disease without esophagitis Gastroesophageal reflux disease without esophagitis : GERD Education Indication: Gastroesophageal reflux disease without esophagitis Palpitations : *palpitation discusssion Indication: Palpitations Abnormal glucose tolerance test : FOLLOW UP IN 3 MONTHS Indication: Abnormal glucose tolerance test Palpitations : *palpitation discusssion Indication: Palpitations Abnormal glucose tolerance test : FOLLOW UP IN 3 MONTHS Indication: Abnormal glucose tolerance test Abnormal glucose tolerance test : Diabetes Education Indication: Abnormal glucose tolerance test Elevated blood-pressure reading without diagnosis of hypertension : FOLLOW UP - MAKE APPT AFTER DIAGNOSTIC TESTS Indication: Elevated blood-pressure reading without diagnosis of hypertension Planned Observations Rapid Strep Test, Office ([id number])Indication: Sore throat On: 6-Myu-232155:56 Request Cologuard - Strool Based DNA Test, CRC SCREEN ([id number])Indication: Encounter for screening for malignant neoplasm of rectum On: 15-Avm-633409:48 Request CALCIFEDIOL ([id number])Indication: Vitamin D deficiency On: 15-Qdi-399875:35 Request MICROALBUMIN: CREATININE RATIO ([id number]) AND ([id number])Indication: Benign essential hypertension On: 16-Dom-009044:34 Request URINALYSIS, W/ MICRO ([id number])Indication: Benign essential hypertension On: 84-Iou-590543:34 Request TSH ([id number])Indication: Benign essential hypertension On: :34 Request Lipid Panel ([id number])Indication: Mixed hyperlipidemia On: :34 Request CBC WITH MANUAL DIFF ([id number])Indication: Benign essential hypertension On: :34 Request Metabolic Panel, Comprehensive ([id number])Indication: Vitamin D deficiency On: :34 Request FECAL OCCULT- Tubes sent home ([id number])Indication: Anemia, unspecified (Renamed from Anemia) On: :18 Request IRON ([id number])Indication: Anemia, unspecified (Renamed from Anemia) On: 32-Rso-372091:18 Request TSH (THYROID STIMULATING HORMONE) ([id number])Indication: Benign essential hypertension On: 57-Xzo-863458:02 Request LIPID PANEL ([id number])Indication: Mixed hyperlipidemia On: 68-Nlq-487921:59 Request METABOLIC PANEL, COMPREHENSIVE ([id number])Indication: Lymphadenopathy, cervical On: :58 Request CBC, PLATELETS & AUT DIFF ([id number])Indication: Lymphadenopathy, cervical On: 65-Cuv-957328:58 Request EB ANTIBODY NUCLR ANTIGN ([id number])Indication: Lymphadenopathy, cervical On: 2-Efn-915042:39 Request MICROALBUMIN: CREATININE RATIO ([id number]) AND ([id number])Indication: Controlled diabetes mellitus type II without complication On: 4-Xnk-611685:03 Request CALCIFEDIOL ([id number])Indication: Controlled diabetes mellitus type II without complication On: 9-Yul-506924:03 Request TSH (THYROID STIMULATING HORMONE) ([id number])Indication: Controlled diabetes mellitus type II without complication On: 1-Duc-610683:03 Request LIPID PANEL ([id number])Indication: Controlled diabetes mellitus type II without complication On: 3-Jng-120861:03 Request METABOLIC PANEL, COMPREHENSIVE ([id number])Indication: Controlled diabetes mellitus type II without complication On: 7-Seo-155237:03 Request CBC, PLATELETS & AUT DIFF ([id number])Indication: Controlled diabetes mellitus type II without complication On: 0-Bvx-768674:03 Request MICROALBUMIN: CREATININE RATIO ([id number]) AND ([id number])Indication: Benign essential hypertension On: 58-Owa-740580:36 Request VITAMIN B12 AND FOLATES ([id number])Indication: Benign essential hypertension On: :36 Request CALCIFEDIOL ([id number])Indication: Benign essential hypertension On: :36 Request LIPID PANEL ([id number])Indication: Benign essential hypertension On: :36 Request METABOLIC PANEL, COMPREHENSIVE ([id number])Indication: Benign essential hypertension On: :36 Request CBC, PLATELETS & AUT DIFF ([id number])Indication: Benign essential hypertension On: :36 Request CBC with auto diff ([id number])Indication: Controlled diabetes mellitus type II without complication On: : Request HGB A1C ([id number])Indication: Controlled diabetes mellitus type II without complication On: : Request MICROALBUMIN: CREATININE RATIO ([id number]) AND ([id number])Indication: Controlled diabetes mellitus type II without complication On: : Request METABOLIC PANEL, COMPREHENSIVE ([id number])Indication: Mixed hyperlipidemia On: :28 Request LIPID PANEL ([id number])Indication: Mixed hyperlipidemia On: :28 Request HGB A1C ([id number])Indication: Controlled diabetes mellitus type II without complication On: 65-Mgz-102581:15 Request CBC with auto diff ([id number])Indication: Allergic eosinophilia On: 51-Fco-391282:14 Request LIPID PANEL ([id number])Indication: Mixed hyperlipidemia On: 26-Rye-027176:14 Request METABOLIC PANEL, COMPREHENSIVE ([id number])Indication: Benign essential hypertension On: 61-Yms-023780:13 Request serum free light chains ([id number])Indication: Elevated serum globulin level On: 34-Rcu-115567:13 Request urine immunofixation ([id number])Indication: Elevated serum globulin level On: 89-Brk-818087:13 Request serum immunofixation ([id number])Indication: Elevated serum globulin level On: 93-Xpx-663358:13 Request LIPID PANEL ([id number])Indication: Mixed hyperlipidemia On: :46 Request URIC ACID BLOOD ([id number])Indication: Gout On: :46 Request METABOLIC PANEL, COMPREHENSIVE ([id number])Indication: Benign essential hypertension On: 8-Vww-674329:45 Request CBC with auto diff ([id number])Indication: Allergic eosinophilia On: :45 Request MICROALBUMIN: CREATININE RATIO ([id number]) AND ([id number])Indication: Controlled diabetes mellitus type II without complication On: :45 Request Hemoglobin Glyclated (HGB A1C) ([id number])Indication: Controlled diabetes mellitus type II without complication On: :45 Request URIC ACID BLOOD ([id number])Indication: Gout On: 5-Ldo-096960:54 Request LIPID PANEL ([id number])Indication: Mixed hyperlipidemia On: 0-Vxw-059226:52 Request METABOLIC PANEL, COMPREHENSIVE ([id number])Indication: Controlled diabetes mellitus type II without complication On: 2-Wnq-024942:52 Request CBC W/AUTO DIFF WBC ([id number])Indication: Allergic eosinophilia On: 3-Wep-775479:52 Request urine immunofixation ([id number])Indication: Elevated serum globulin level On: :52 Request serum immunofixation ([id number])Indication: Elevated serum globulin level On: 6-All-972300:52 Request URIC ACID BLOOD ([id number])Indication: Gout On: 49-Odz-909901:06 Request MICROALBUMIN: CREATININE RATIO ([id number]) AND ([id number])Indication: Controlled diabetes mellitus type II without complication On: 89-Uwu-321827:05 Request LIPID PANEL ([id number])Indication: Mixed hyperlipidemia On: 39-Udi-431593:04 Request CBC W/AUTO DIFF WBC ([id number])Indication: Allergic eosinophilia On: 35-Bih-511756:04 Request METABOLIC PANEL, COMPREHENSIVE ([id number])Indication: Controlled diabetes mellitus type II without complication On: 87-Bqw-641117:04 Request LIPID PANEL ([id number])Indication: Mixed hyperlipidemia On: 5-Gbu-100174:43 Request CBC W/AUTO DIFF WBC ([id number])Indication: Allergic eosinophilia On: 8-Jhh-699825:43 Request METABOLIC PANEL, COMPREHENSIVE ([id number])Indication: Controlled diabetes mellitus type II without complication On: 4-Tkl-839309:43 Request serum free light chains ([id number])Indication: Elevated serum globulin level On: 27-Mcd-307081:36 Request LIPID PANEL ([id number])Indication: Mixed hyperlipidemia On: 2-Eom-668501:17 Request METABOLIC PANEL, COMPREHENSIVE (41302)Indication: Benign essential hypertension On: :17 Request CBC WITH MANUAL DIFF ([id number])Indication: Allergic eosinophilia On: 2-Rgs-801336:17 Request HEPATIC FUNCTION PANEL ([id number])Indication: Abnormal finding of blood chemistry, unspecified On: 84-Ypp-543793:16 Request Comments: 2 weeks URIC ACID BLOOD ([id number])Indication: Left hip pain On: 72-Dyy-085772:44 Request LIPID PANEL (21393)Indication: Mixed hyperlipidemia On: :08 Request MICROALBUMIN: CREATININE RATIO ([id number]) AND ([id number])Indication: Controlled diabetes mellitus type II without complication On: :08 Request CBC WITH MANUAL DIFF ([id number])Indication: Benign essential hypertension On: :08 Request METABOLIC PANEL, COMPREHENSIVE ([id number])Indication: Benign essential hypertension On: :08 Request Uric Acid Blood ([id number])Indication: Foot pain On: 68-Uli-530602:41 Request CBC WITH MANUAL DIFF ([id number])Indication: Benign essential hypertension On: 83-Ggq-601250:50 Request LIPID PANEL ([id number])Indication: Mixed hyperlipidemia On: 11-Yoh-778308:50 Request MICROALBUMIN: CREATININE RATIO ([id number]) AND ([id number])Indication: Controlled diabetes mellitus type II without complication On: 97-Ban-162022:50 Request METABOLIC PANEL, COMPREHENSIVE ([id number])Indication: Controlled diabetes mellitus type II without complication On: 32-Onf-389261:50 Request METABOLIC PANEL, COMPREHENSIVE ([id number])Indication: Controlled diabetes mellitus type II without complication On: 4-Szh-821885:43 Request METABOLIC PANEL, COMPREHENSIVE ([id number])Indication: Benign essential hypertension On: 7-Aka-268896:36 Request LIPID PANEL ([id number])Indication: Mixed hyperlipidemia On: :36 Request CBC WITH MANUAL DIFF ([id number])Indication: Allergic eosinophilia On: :36 Request MICROALBUMIN: CREATININE RATIO ([id number]) AND ([id number])Indication: Controlled diabetes mellitus type II without complication On: :41 Request METABOLIC PANEL, COMPREHENSIVE ([id number])Indication: Controlled diabetes mellitus type II without complication On: 4-Vvb-686328:33 Request LIPID PANEL ([id number])Indication: Mixed hyperlipidemia On: :33 Request HgA1C , Office ([id number])Indication: Controlled diabetes mellitus type II without complication On: :17 Request LIPID PANEL ([id number])Indication: Mixed hyperlipidemia On: :45 Request METABOLIC PANEL, COMPREHENSIVE ([id number])Indication: Controlled diabetes mellitus type II without complication On: :45 Request CBC WITH MANUAL DIFF ([id number])Indication: Allergic eosinophilia On: :45 Request CBC WITH MANUAL DIFF ([id number])Indication: Allergic eosinophilia On: :34 Request LIPID PANEL ([id number])Indication: Mixed hyperlipidemia On: :34 Request METABOLIC PANEL, COMPREHENSIVE ([id number])Indication: Controlled diabetes mellitus type II without complication On: :31 Request CBC WITH MANUAL DIFF ([id number])Indication: Need for prophylactic vaccination and inoculation against influenza On: :31 Request CBC WITH MANUAL DIFF ([id number])Indication: Allergic eosinophilia On: 25-Rnt-754145:59 Request LIPID PANEL ([id number])Indication: Mixed hyperlipidemia On: 42-Kvp-585283:57 Request MICROALBUMIN: CREATININE RATIO ([id number]) AND ([id number])Indication: Controlled diabetes mellitus type II without complication On: :56 Request METABOLIC PANEL, COMPREHENSIVE ([id number])Indication: Controlled diabetes mellitus type II without complication On: :56 Request TSH ([id number])Indication: Symptomatic tachycardia On: :21 Request CBC WITH MANUAL DIFF ([id number])Indication: Allergic eosinophilia On: 7-Osr-169502:20 Request Comments: 2 weeks METABOLIC PANEL, COMPREHENSIVE ([id number])Indication: Benign essential hypertension On: :20 Request LIPID PANEL ([id number])Indication: Mixed hyperlipidemia On: :19 Request LIPID PANEL ([id number])Indication: Mixed hyperlipidemia On: :20 Request CALCIFEDIOL ([id number])Indication: POSTMENOPAUSAL STATE On: 42-Snt-679447:53 Request METABOLIC PANEL, COMPREHENSIVE ([id number])Indication: Benign essential hypertension On: :53 Request CBC with manual diff ([id number])Indication: Benign essential hypertension On: 34-Xmf-792377:53 Request LIPID PANEL ([id number])Indication: Mixed hyperlipidemia On: 22-Vsx-211495:53 Request CBC WITH MANUAL DIFF ([id number])Indication: Allergic eosinophilia On: :40 Request Comments: 1 month after takes meds CBC WITH MANUAL DIFF ([id number])Indication: Allergic eosinophilia On: :48 Request METABOLIC PANEL, COMPREHENSIVE ([id number])Indication: Benign essential hypertension On: :48 Request LIPID PANEL ([id number])Indication: Mixed hyperlipidemia On: :48 Request MICROALBUMIN: CREATININE RATIO ([id number]) AND ([id number])Indication: Controlled diabetes mellitus type II without complication On: :48 Request RHEUMATOID FACTOR-QUANT ([id number])Indication: Allergic eosinophilia On: :20 Request JOSE ALEJANDRO (ANTINUCLEAR ANTIBODY) ([id number])Indication: Allergic eosinophilia On: :20 Request C-REACTIVE PROTEIN ([id number])Indication: Allergic eosinophilia On: :20 Request SED RATE ERYTHROCYTE ([id number])Indication: Allergic eosinophilia On: :19 Request OVA & PARASITE DIR SMEAR ([id number])Indication: Allergic eosinophilia On: :14 Request LEUKOCYTE COUNT, FECAL ([id number])Indication: Allergic eosinophilia On: :14 Request C.Difficile, Stool ([id number])Indication: Allergic eosinophilia On: :14 Request MARIEL CULTURE-STOOL ([id number])Indication: Allergic eosinophilia On: :14 Request CBC WITH MANUAL DIFF ([id number])Indication: Allergic eosinophilia On: :09 Request HEPATIC FUNCTION PANEL (86193)Indication: Mixed hyperlipidemia On: :09 Request LIPID PANEL ([id number])Indication: Mixed hyperlipidemia On: :09 Request MICROALBUMIN: CREATININE RATIO ([id number]) AND ([id number])Indication: Abnormal glucose tolerance test On: :44 Request HEPATIC FUNCTION PANEL ([id number])Indication: Mixed hyperlipidemia On: :34 Request LIPID PANEL ([id number])Indication: Mixed hyperlipidemia On: :34 Request CBC WITH MANUAL DIFF ([id number])Indication: Abdominal pain, unspecified abdominal location On: :51 Request HEPATIC FUNCTION PANEL ([id number])Indication: Mixed hyperlipidemia On: :49 Request LIPID PANEL ([id number])Indication: Mixed hyperlipidemia On: :48 Request LIPID PANEL ([id number])Indication: Mixed hyperlipidemia On: :02 Request HEPATIC FUNCTION PANEL ([id number])Indication: Mixed hyperlipidemia On: :02 Request LIPID PANEL ([id number])Indication: Mixed hyperlipidemia On: :37 Request HEPATIC FUNCTION PANEL ([id number])Indication: Mixed hyperlipidemia On: :37 Request MICROALBUMIN URINE QUANT ([id number])Indication: Abnormal glucose tolerance test On: :02 Request URINALYSIS W/O MICRO ([id number])Indication: Abnormal glucose tolerance test On: :02 Request TSH ([id number])Indication: Abnormal glucose tolerance test On: : Request CBC WITH MANUAL DIFF ([id number])Indication: Abnormal glucose tolerance test On: :01 Request METABOLIC PANEL, COMPREHENSIVE ([id number])Indication: Abnormal glucose tolerance test On: :01 Request HEPATIC FUNCTION PANEL ([id number])Indication: Mixed hyperlipidemia On: :01 Request LIPID PANEL ([id number])Indication: Mixed hyperlipidemia On: :01 Request HgA1C , Office ([id number])Indication: Abnormal glucose tolerance test On: :55 Request HELICOBACTER PYLORI ANTIBODY PROFILE IgG, IgM, IgA ([id number])Indication: Epigastric pain On: 3-Lhs-033614:05 Request CBC WITH MANUAL DIFF ([id number])Indication: Palpitations On: 3-Lwp-930544:45 Request METABOLIC PANEL, COMPREHENSIVE ([id number])Indication: Palpitations On: 8-Kzu-259643:45 Request TSH ([id number])Indication: Palpitations On: 5-Rki-499410:45 Request METABOLIC PANEL, COMPREHENSIVE ([id number])Indication: Mixed hyperlipidemia On: 16-Rog-795330:04 Request LIPID PANEL ([id number])Indication: Mixed hyperlipidemia On: 10-Sdp-027978:04 Request URINALYSIS W/O MICRO ([id number])Indication: Elevated blood-pressure reading without diagnosis of hypertension On: :22 Request TSH ([id number])Indication: Elevated blood-pressure reading without diagnosis of hypertension On: :22 Request MICROALBUMIN URINE QUANT ([id number])Indication: Elevated blood-pressure reading without diagnosis of hypertension On: :22 Request METABOLIC PANEL, COMPREHENSIVE ([id number])Indication: Elevated blood-pressure reading without diagnosis of hypertension On: : Request CBC WITH MANUAL DIFF ([id number])Indication: Elevated blood-pressure reading without diagnosis of hypertension On: :22 Request LIPID PANEL ([id number])Indication: Mixed hyperlipidemia On: :21 Request HEPATIC FUNCTION PANEL ([id number])Indication: Mixed hyperlipidemia On: :20 Request GLUCOSE, PP/2 HOUR ([id number])Indication: Hypoglycemia On: :20 Request Planned Procedures Toradol Injection, 30 mg On: 28-Feb-2018 Intent (J1885)By: Concha Ford CNP ELECTROCARDIOGRAM, COMPLETE (ECG) On: 06-Nov-2017 Intent ([id number])By: Katie Fernández DO Comments: nsr no acute cgh Katie Fernández DO CT SCAN, SOFT TISSUE NECK W/ On: 20-Aug-2016 Intent CONTRAST ([id number])By: Jolene VANCE, Comments: attention cervical lymph nodes Katie Duque DO TDAP VACCINE >7 IM ([id number])By: On: 08-Aug-2016 Intent Katie Fernández DO, DO, Comments: boostrixlot [id number] 10.9.18L Dltd, IMPrefilled syringeMegan Long, LPNVIS signed Katie ELECTROCARDIOGRAM, COMPLETE (ECG) On: 19-Jul-2016 Intent ([id number])By: Katie Fernández DO Comments: nsr no acute chg Katie Fernández DO Spirometry ([id number])By: Danielle SALVADOR, On: 27-Dec-2015 Intent Олег MAMMOGRAM, SCREENING, BOTH BREAST On: 09-Sep-2015 Intent ([id number])By: Jewell Coffman DO EKG ([id number])By: Jewell Coffman DO On: 07-Dec-2013 Intent Eprescribed prescriptions On: 05-Aug-2013 Intent ([id number])By: Jewell Coffman DO PHYSICAL THERAPY EVALUATION On: 06-Jul-2013 Intent ([id number])By: Liliana CHAMBERS Jillian Radiology - Hip - LeftBy: Liliana On: 06-Jul-2013 Intent REYES Jillian Eprescribed prescriptions On: 25-Mar-2013 Intent (G8553)By: America Molina Eprescribed prescriptions On: 09-Mar-2013 Intent (G8553)By: Pebbles Medrano EKG (91193)By: America Molina On: 22-Oct-2012 Intent Comments: ekg showed normal sinus rhythym, normal axis, no acute st/t wave changes Eprescribed prescriptions On: 21-May-2012 Intent (G8553)By: America Molina IMMUNIZ ADMNIN, 1 VAC, SNGL/COMBO On: 16-Jan-2012 Intent ([id number])By: America Molina Pneumovax (65653)By: Jesse, On: 16-Jan-2012 Intent America Eprescribed prescriptions On: 16-Jan-2012 Intent ([id number])By: America Molina EKG (72157)By: Jewell Coffman DO On: 31-Jul-2011 Intent Comments: ekg showed normal sinus rhythym, normal axis, no acute st/t wave changes no change in st segments inferiorly TD Injection , IM ([id number])By: On: 04-Apr-2011 Intent America Molina Comments: [facility] 2008 FLU VAC, SPLIT, >3 YEARS, INTRAMUSC On: 04-Apr-2011 Intent ([id number])By: America Molina Comments: refuses Nuclear Stress Test/Stress On: 21-Jul-2010 Intent SPECT/TreadmillBy: Jewell Coffman DO EKG ([id number])By: America Molina On: 21-Jul-2010 Intent EKG ([id number])By: America Molina On: 28-Dec-2009 Intent Comments: ekg showed normal sinus rhythym, normal axis, no acute st/t wave changes no change in inferior wall Nuclear Stress Test/Stress On: 22-Sep-2008 Intent SPECT/TreadmillBy: Jewell Coffman DO Spirometry ([id number])By: Augustus VANCE, On: 22-Sep-2008 Intent Jewell Ríos Comments: done km Radiology - Chest- PA and LatBy: On: 22-Sep-2008 Intent Jewell Coffman DO Pulse Oximetry (28653)By: Augustus VANCE, On: 22-Sep-2008 Intent Jewell Ríos Comments: 97% EKG ([id number])By: America Molina On: 22-Sep-2008 Intent Comments: done kmekg showed normal sinus rhythym, normal axis, no acute st/t wave changes Solu -Medrol Injection, 125 mg On: 10-May-2008 Intent ([id number])By: Jewell Coffman DO Comments: Amt: 2mlLot: [id number]: 07Site: left hipTolerated: wellGiven By: JAAM Alcaraz EKG ([id number])By: America Molina On: 20-Aug-2007 Intent Comments: ekg showed normal sinus rhythym, normal axis, no acute st/t wave changes Nuclear Stress Test/Stress On: 29-Aug-2006 Intent SPECT/TreadmillBy: Jewell Coffman DO Echo CompleteBy: ELLIS CHAMBERS, On: 20-Aug-2006 Intent ARTHUR EKG ([id number])By: ARTHUR CORRAL CNP On: 20-Aug-2006 Intent Comments: NSR Holter Moniter ([id number])By: ELLIS On: 20-Aug-2006 Intent ARTHUR CHAMBERS Holter Moniter (21083)By: Tyler On: 22-Jul-2006 Intent HAFSA Holter Moniter ([id number])By: Augustus VANCE On: 03-Jul-2006 Intent Jewell Ríos EKG ([id number])By: Jewell Coffman DO On: 26-Mar-2006 Intent Comments: ekg showed normal sinus rhythym, normal axis, no acute st/t wave changes Radiology - ChestBy: Jewell Coffman DO On: 13-Feb-2006 Intent A Planned Medications INJECTION, KETOROLAC TROMETHAMINE, PER 15 MG Ordered: 28-Feb-2018 Pending Concha Ford CNP Instructions Name Dates Details Non-smoker : How to access health information online Indication: Non-smoker Non-smoker : How to access health information online - Detail Indication: Non-smoker Non-smoker : Patient Instructions Indication: Non-smoker BMI 34.0-34.9,adult : How to access health information online Indication: BMI 34.0-34.9,adult BMI 34.0-34.9,adult : How to access health information online - Detail Indication: BMI 34.0-34.9,adult Post-nasal drainage : Patient Instructions Indication: Post-nasal drainage BMI 33.0-33.9,adult : How to access health information online Indication: BMI 33.0-33.9,adult BMI 33.0-33.9,adult : How to access health information online - Detail Indication: BMI 33.0-33.9,adult BMI 33.0-33.9,adult : Patient Instructions Indication: BMI 33.0-33.9,adult Non-smoker : How to access health information online Indication: Non-smoker Non-smoker : How to access health information online - Detail Indication: Non-smoker Non-smoker : Patient Instructions Indication: Non-smoker BMI 31.0-31.9,adult : How to access health information online - Detail Indication: BMI 31.0-31.9,adult BMI 31.0-31.9,adult : Patient Instructions Indication: BMI 31.0-31.9,adult Non-smoker : How to access health information online Indication: Non-smoker Non-smoker : How to access health information online Indication: Non-smoker Non-smoker : How to access health information online - Detail Indication: Non-smoker Non-smoker : Patient Instructions Indication: Non-smoker Body mass index 27.0-27.9, adult : How to access health information online Indication: Body mass index 27.0-27.9, adult Body mass index 27.0-27.9, adult : How to access health information online - Detail Indication: Body mass index 27.0-27.9, adult Body mass index 27.0-27.9, adult : Patient Instructions Indication: Body mass index 27.0-27.9, adult Body mass index 27.0-27.9, adult : Patient Instructions Indication: Body mass index 27.0-27.9, adult Controlled diabetes mellitus type II without complication : How to access health information online Indication: Controlled diabetes mellitus type II without complication Controlled diabetes mellitus type II without complication : How to access health information online - Detail Indication: Controlled diabetes mellitus type II without complication Controlled diabetes mellitus type II without complication : Patient Instructions Indication: Controlled diabetes mellitus type II without complication Controlled diabetes mellitus type II without complication : How to access health information online Indication: Controlled diabetes mellitus type II without complication Controlled diabetes mellitus type II without complication : How to access health information online - Detail Indication: Controlled diabetes mellitus type II without complication Controlled diabetes mellitus type II without complication : Patient Instructions Indication: Controlled diabetes mellitus type II without complication Controlled diabetes mellitus type II without complication : How to access health information online Indication: Controlled diabetes mellitus type II without complication Controlled diabetes mellitus type II without complication : How to access health information online - Detail Indication: Controlled diabetes mellitus type II without complication Controlled diabetes mellitus type II without complication : Patient Instructions Indication: Controlled diabetes mellitus type II without complication Controlled diabetes mellitus type II without complication : How to access health information online Indication: Controlled diabetes mellitus type II without complication Controlled diabetes mellitus type II without complication : How to access health information online - Detail Indication: Controlled diabetes mellitus type II without complication Controlled diabetes mellitus type II without complication : Patient Instructions Indication: Controlled diabetes mellitus type II without complication Controlled diabetes mellitus type II without complication : How to access health information online Indication: Controlled diabetes mellitus type II without complication Controlled diabetes mellitus type II without complication : How to access health information online - Detail Indication: Controlled diabetes mellitus type II without complication Controlled diabetes mellitus type II without complication : Patient Instructions Indication: Controlled diabetes mellitus type II without complication Controlled diabetes mellitus type II without complication : How to access health information online Indication: Controlled diabetes mellitus type II without complication Controlled diabetes mellitus type II without complication : How to access health information online - Detail Indication: Controlled diabetes mellitus type II without complication Controlled diabetes mellitus type II without complication : Patient Instructions Indication: Controlled diabetes mellitus type II without complication Controlled diabetes mellitus type II without complication : Patient Instructions Indication: Controlled diabetes mellitus type II without complication Controlled diabetes mellitus type II without complication : Patient Instructions Indication: Controlled diabetes mellitus type II without complication Controlled diabetes mellitus type II without complication : Patient Instructions Indication: Controlled diabetes mellitus type II without complication Benign essential hypertension : Patient Instructions Indication: Benign essential hypertension Wrist pain : Patient Instructions Indication: Wrist pain Controlled diabetes mellitus type II without complication : Patient Instructions Indication: Controlled diabetes mellitus type II without complication Foot pain : Patient Instructions Indication: Foot pain Controlled diabetes mellitus type II without complication : Patient Instructions Indication: Controlled diabetes mellitus type II without complication Controlled diabetes mellitus type II without complication : Patient Instructions Indication: Controlled diabetes mellitus type II without complication Controlled diabetes mellitus type II without complication : Patient Instructions Indication: Controlled diabetes mellitus type II without complication Encounters Annotation/Addendum On: 26-Mar-2018 13:26 Encounter Diagnosis: Neck pain, acute End: 26-Mar-2018 13:29 [facility] Visit On: 28-Feb-2018 10:49 Encounter Reason: Follow up acute care visit - The patient feels the same (cough but now has back pain -- interfereres w activity)., [ADDITIONAL REASON] Cough - Note for Cough: Was given nose spray couple weeks ago but cough persis End: 28-Feb-2018 11:56 tsHas small cell Ca and is on med treated by [facility] Coughing so hard felt as idf pulled out backGets CT q 3 months by [facility] last in Dec , [ADDITIONAL REASON] Back Pain Lumbar, Acute - Note for Acute lumbar back pain: Acute Low back pain 3-4 days was given muscle relax without relief, gets spasms at night Encounter Diagnosis: Non-smoker, BMI 34.0-34.9,adult, Low back pain with sciatica, Small cell carcinoma, Cough [facility] Office Visit On: 17-Feb-2018 11:15 Encounter Reason: Sore Throat - Onset was 4 day(s) ago. Note for Sore throat: Symptoms started about 4 days ago with sore throat at night, throat hurts when coughing, cough-an occassional green, nasal draiange-clear, N End: 17-Feb-2018 12:01 o fever or chills, CP, SOB. Trying to drink a lot of fluids, has tried advil cold and sinus-helps a little.Encounter Diagnosis: Non-smoker, BMI 34.0-34.9,adult, Sore throat, Post-nasal drainage [facility] Phone Encounter On: 12-Dec-2017 14:08 Encounter Diagnosis: Adenocarcinoma of lung End: 12-Dec-2017 14:39 [facility] Office Visit On: 12-Dec-2017 12:52 Encounter Reason: Follow up tests - Date: (11.06.17 - refer to [facility]?).Encounter Diagnosis: Non-smoker, BMI 33.0-33.9,adult, Anemia, unspecified (Renamed from Anemia), Encounter for screening for malignant neoplasm of rectum, End: 12-Dec-2017 14:06 Nonsquamous nonsmall cell neoplasm of lung, left, 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 Patient has been compliant with instructions. Current medication use: no side effects and compliant with dosing regimen. Patient sleeps 7 hours per night . Nutrition: inappropriate diet and supplemental vitamins. The medical issues the patient is following up for include All identified problems below, blood sugar issues, high blood pressure and high cholesterol. fasting blood sugars :. Encounter Diagnosis: BMI 31.0-31.9,adult, Non-smoker, Benign essential hypertension (401.1), Controlled diabetes mellitus type II without complication, Mixed hyperlipidemia (272.2), Vitamin D deficiency, Gastroesophageal reflux disease without esophagitis, Anemia, unspecified (Renamed from Anemia), Nonsquamous nonsmall cell neoplasm of lung, left [facility] Phone Encounter On: 24-Oct-2017 15:31 Encounter Diagnosis: Vitamin D deficiency, Mixed hyperlipidemia (272.2), Benign essential hypertension (401.1) End: 24-Oct-2017 15:37 [facility] Office Visit On: 14-Mar-2017 9:52 Encounter Reason: Follow up tests - Date: (03/06/17)., [ADDITIONAL REASON] Follow up for chronic medical issues - The patient feels well with minor complai End: 14-Mar-2017 11:28 nts, has good energy level and is sleeping well. Patient has been compliant with instructions. Current medication use: no side effects and compliant with dosing regimen. Patient sleeps 7 hours per night . Nutrition: inappropriate diet and supplemental vitamins. The medical issues the patient is following up for include All identified problems below, blood sugar issues, high blood pressure and high cholesterol. fasting blood sugars :. 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 [facility] Lab Order On: 04-Mar-2017 11:57 Encounter Diagnosis: Lymphadenopathy, cervical, Mixed hyperlipidemia (272.2), Benign essential hypertension (401.1) End: 04-Mar-2017 12:03 [facility] Phone Encounter On: 20-Feb-2017 15:33 Encounter Diagnosis: Benign essential hypertension (401.1) End: 20-Feb-2017 15:35 [facility] Phone Encounter On: 17-Sep-2016 9:32 Encounter Diagnosis: Unspecified Diagnosis End: 17-Sep-2016 9:41 [facility] Office Visit On: 06-Sep-2016 8:46 Encounter Reason: Follow up tests - Date: (09/03/16 ct scan).Encounter Diagnosis: Body mass index 27.0-27.9, adult, Non-smoker, Lymphadenopathy, cervical, Abnormal CAT scan End: 06-Sep-2016 11:13 [facility] Office Visit On: 20-Aug-2016 9:34 Encounter Diagnosis: Non-smoker, Body mass index 27.0-27.9, adult, Lymphadenopathy, cervical, Thrush End: 20-Aug-2016 10:43 [facility] Office Visit On: 08-Aug-2016 12:57 Encounter Reason: Annual Medicare Exam - The patient had reviewed and updated the family history, medication/s, past medical history and social history. Yes the patient did have a mini mental status exam done today. The End: 08-Aug-2016 17:02 activities of daily living the patient needs help with are none. The patient has driven in past 6 months, but the patient has not had fecal incontinence, had urinary incontinence, missed or ran out of m edications to soon, fallen in the past 6 months, gotten lost, has a medalert necklace or bracelet, put area rugs through house or put handrails in bathroom. The patient has completed the following preve ntative measures: mammography (11/28). The patient does have durable power of deputy prosecuting attorney and living will. The patient has noticed nothing from the geriatic depression scale. Other providers contributing to the patient's care are other:. Encounter Diagnosis: Encounter for annual general medical examination with abnormal findings in adult, Encounter for screening mammogram for breast cancer (Renamed from Encounter for screening mammogram for malignant neoplasm of breast), Postmenopausal (Renamed from Postmenopausal status), Encounter for screening for malignant neoplasm of colon (Renamed from Special screening for malignant neoplasms, colon), Smoker, Body mass index 27.0-27.9, adult, Nutritional counseling, Lymphadenopathy, cervical, Need for Tdap vaccination (Renamed from Need for [id number] (Tdap) vaccine, adult/adolescent) [facility] Office Visit On: 19-Jul-2016 9:11 Encounter Reason: Follow up tests - Date: (07/10/16 labs)., [ADDITIONAL REASON] Follow up for chronic medical issues - The patient feels well with minor complai End: 19-Jul-2016 15:58 nts, has good energy level and is sleeping well. Patient has been compliant with instructions. Current medication use: no side effects and compliant with dosing regimen. Patient sleeps 7 hours per night . Nutrition: balanced diet and no supplemental vitamins & iron. The medical issues the patient is following up for include All identified problems below, blood sugar issues, high blood pressure and high cholesterol. weight :. Encounter Diagnosis: BMI 28.0-28.9,adult, Smoker, Controlled diabetes mellitus type II without complication, Benign essential hypertension (401.1), Mixed hyperlipidemia (272.2), Gastroesophageal reflux disease without esophagitis, Elevated serum globulin level, Allergic eosinophilia, Encounter for screening for malignant neoplasm of colon (Renamed from Special screening for malignant neoplasms, colon), Grieving, Varicose veins of legs, Cramp of both lower extremities, Nutritional counseling [facility] Visit On: 19-Apr-2016 9:04 Encounter Reason: Follow up tests - Date:., [ADDITIONAL REASON] Follow up for chronic medical issues - The patient feels well with minor complaints, has good energy level and is sleeping well. Patient has been compliant with instructions. Ebony End: 19-Apr-2016 15:41 t medication use: no side effects and compliant with dosing regimen. Patient sleeps 8 hours per night. Nutrition: inappropriate diet (loss of appitite ). Encounter Diagnosis: Controlled diabetes mellitus type II without complication, BMI 29.0-29.9,adult, Smoker, Vitamin D deficiency, Elevated serum globulin level, Mixed hyperlipidemia (272.2), Gastroesophageal reflux disease without esophagitis, Benign essential hypertension (401.1), Gout (274.9), Monoclonal gammopathy, H/O bone density study, Polyp, colonic [facility] Office Visit On: 27-Dec-2015 9:13 Encounter Reason: Follow up tests - Date: (12.20.15)., [ADDITIONAL REASON] Follow up for chronic medical issues - The patient feels well with minor complai End: 29-Dec-2015 19:09 nts (allergies are a problem....takes carolina and helps some- ??Wants to talk about Bystolic and insurnace not covering it anymore), has good energy level and is sleeping well. Patient has been complian t with instructions. Current medication use: no side effects. Patient sleeps 7 hours per night. Nutrition: inappropriate diet, supplemental vitamins and low salt diet. The medical issues the patient is following up for include All identified problems below, blood sugar issues, cardiac issues (palpitations, sinus tachy), gastric reflux, high blood pressure and high cholesterol. Encounter Diagnosis: Non-smoker, BMI 29.0-29.9,adult, Controlled diabetes mellitus type II without complication, Cough, Monoclonal gammopathy, sinus tachycardia, Benign essential hypertension (401.1), Gastroesophageal reflux disease without esophagitis, Mixed hyperlipidemia (272.2), Allergic rhinitis, Palpitations, Elevated serum globulin level [facility] Visit On: 09-Sep-2015 11:23 Encounter Reason: Follow up for chronic medical issues - The patient feels well with minor complaints (allergies are a problem....takes carolina and helps some- ??Wants to talk about Bystolic and insurnace not covering it End: 11-Sep-2015 21:26 anymore), has good energy level and is sleeping well. Patient has been compliant with instructions. Current medication use: no side effects and compliant with dosing regimen. Patient sleeps 7 hours per night. Nutrition: inappropriate diet, supplemental vitamins and low salt diet. The medical issues the patient is following up for include All identified problems below, blood sugar issues, cardiac issu es (palpitations, sinus tachy), gastric reflux, high blood pressure and high cholesterol. weight : (141). Note for Follow up for chronic medical issues: in ral doing well bp is good and needs to work harder on diet and ex, [ADDITIONAL REASON] Follow up, Laboratory Test Results - Date: (09/02/15). Encounter Diagnosis: Controlled diabetes mellitus type II without complication, BMI 29.0- 29.9,adult, Non-smoker, Mixed hyperlipidemia (272.2), Gastroesophageal reflux disease without esophagitis, Monoclonal gammopathy, Eczema, allergic, Encounter for screening mammogram for breast cancer (Renamed from Encounter for screening mammogram for malignant neoplasm of breast) [facility] Office Visit On: 10-Jun-2015 8:55 Encounter Reason: Follow up for chronic medical issues - The patient feels well with no complaints, has good energy level and is sleeping well. Patient has been compliant with instructions. Current medication use: no nico End: 12-Jun-2015 17:57 e effects and compliant with dosing regimen. Patient sleeps 7 hours per night. Nutrition: inappropriate diet, supplemental vitamins and low salt diet. The medical issues the patient is following up for include All identified problems below, blood sugar issues, cardiac issues (palpitations, sinus tachy), gastric reflux, high blood pressure and high cholesterol. weight : (141). Note for Follow up for c hronic medical issues: she retired may 1has been good- she loved her work- doing a lot of reading- weight doing not snacking as much and trying to keep active- not having gerd or gout flares, [ADDITIONAL REASON] Follow up, Laboratory Test Results - Date: (12/29/15). Encounter Diagnosis: Controlled diabetes mellitus type II without complication, Gastroesophageal reflux disease without esophagitis, Mixed hyperlipidemia (272.2), Benign essential hypertension (401.1), Allergic eosinophilia, Elevated serum globulin level, Gout, arthritis [facility] Historical Summary On: 21-Feb-2015 17:48 [facility] End: 21-Feb-2015 17:49 Office Visit On: 14-Dec-2014 13:07 Encounter Reason: Follow up for chronic medical issues - The patient feels well with minor complaints (pt hasnt been able to take her statin d/t body aches), has good energy level and is sleeping well. Patient has been c End: 14-Dec-2014 22:39 ompliant with instructions. Current medication use: experiencing side effects and compliant with dosing regimen. Patient sleeps 7 hours per night. Nutrition: inappropriate diet, supplemental vitamins an d low salt diet. The medical issues the patient is following up for include All identified problems below, blood sugar issues, cardiac issues (palpitations, sinus tachy), gastric reflux, high blood pres sure and high cholesterol. weight : (141). Note for Follow up for chronic medical issues: not having gout attacks- quit the simvistatin thought was making achey but hasnt changed off so go back on, [ADDITIONAL REASON] Follow up, Laboratory Test Results - Date: (11/2014). Encounter Diagnosis: Type II Diabetes,controlled (250.00), Eosinophilia (288.3), Benign essential hypertension (401.1), Arthralgia, Gout (274.9), Elevated Globulin (790.6), Mixed hyperlipidemia (272.2), screen [facility] Office Visit On: 16-Aug-2014 13:22 Encounter Reason: Follow up for chronic medical issues - The patient feels well with minor complaints (myalgis's yet from the statins), has good energy level and is sleeping well. Patient has been compliant with instruct End: 16-Aug-2014 14:01 ions. Current medication use: experiencing side effects (aches and pains from statins) and compliant with dosing regimen. Patient sleeps 7 hours per night. Nutrition: inappropriate diet, supplemental vi tamins and low salt diet. The medical issues the patient is following up for include All identified problems below, blood sugar issues, cardiac issues (palpitations, sinus tachy), gastric reflux, high b lood pressure and high cholesterol. weight : (141). Note for Follow up for chronic medical issues: bp is good- and weight down 2 pounds- no gerd now = on and off with simvistatin - she will try qod- a nd see if tolerates- doesnt want to take gout meds , [ADDITIONAL REASON] Follow up, Laboratory Test Results - Date: (08/10/14). Encounter Diagnosis: Type II Diabetes,controlled (250.00), Benign essential hypertension (401.1), GERD (530.81), Gout (274.9), Elevated Globulin (790.6), Eosinophilia (288.3), Mixed hyperlipidemia (272.2) [facility] Office Visit On: 24-Mar-2014 16:19 Encounter Reason: Follow up for chronic medical issues - The patient feels well with minor complaints (talk about statins), has good energy level and is sleeping well. Patient has been compliant with instructions. Lalito End: 25-Mar-2014 23:11 t medication use: no side effects and compliant with dosing regimen. Patient sleeps 7 hours per night. Nutrition: inappropriate diet, supplemental vitamins and low salt diet. The medical issues the charly ent is following up for include All identified problems below, blood sugar issues, cardiac issues (palpitations, sinus tachy), gastric reflux, high blood pressure and high cholesterol. weight : (141). N ote for Follow up for chronic medical issues: weight up 3 pounds had quit exercising due to scheudle nowbp and sugar good trigs good but ldl up, [ADDITIONAL REASON] Follow up, Laboratory Test Results - Date: (03/18/14). Encounter Diagnosis: Type II Diabetes,controlled (250.00), Mixed hyperlipidemia (272.2), GERD (530.81), Gout (274.9), Eosinophilia (288.3) [facility] Office Visit On: 07-Dec-2013 13:08 Encounter Reason: Follow up for chronic medical issues - The patient feels well with minor complaints (breakthru heartburn more towards evening even with taking the omeprazole), has good energy level and is sleeping well End: 07-Dec-2013 21:19 . Patient has been compliant with instructions. Current medication use: no side effects and compliant with dosing regimen. Patient sleeps 7 hours per night. Nutrition: inappropriate diet, supplemental v itamins and low salt diet. The medical issues the patient is following up for include All identified problems below, blood sugar issues, cardiac issues (palpitations, sinus tachy), gastric reflux, high blood pressure and high cholesterol. weight : (141). Note for Follow up for chronic medical issues: taking 1/2 bystolic- and when saw mustapha her bp was 92 /52- taking 1/3 bystolic- and weight stable- taking this for palpitations and not getting any and tolerating now - had eye exam and was good- admits not cut mariel k enough on sweets so will try- she is exercising- she went off trilipix- as too much body aching - she going to try qod- she also wants tot ry change diet and avoid foods causing gerd-instead of increase dose- doing alot of tomatoes- no gout , [ADDITIONAL REASON] Follow up tests - Diagnostic tests include other (labs). Date: (12/03/13). Encounter Diagnosis: Type II Diabetes,controlled (250.00), Benign essential hypertension (401.1), Mixed hyperlipidemia (272.2), Gout (274.9), Eosinophilia (288.3), Elevated Globulin (790.6), GERD (530.81) [facility] Office Visit On: 05-Aug-2013 15:33 Encounter Reason: Follow up for chronic medical issues - The patient feels well with minor complaints (pt stopped the generic version of trilipix d/t s/e of joint pains and muscle weakness. Since stopped it 2 days ago th End: 05-Aug-2013 22:39 e pain has lessoned.), has good energy level and is sleeping well. Patient has been compliant with instructions. Current medication use: experiencing side effects (body aches with trilipix) and complian t with dosing regimen. Patient sleeps 7 hours per night. Nutrition: inappropriate diet, supplemental vitamins and low salt diet. The medical issues the patient is following up for include All identified problems below, blood sugar issues, cardiac issues (palpitations, sinus tachy), gastric reflux, high blood pressure and high cholesterol. weight : (141). Note for Follow up for chronic medical issues : she is doing pt for hip and helping and wearing cock up splints and helping her wrists- never took celebrex but qquit chol med was afraid it was causign pain- it wasnt actually triliptix she was on ge neric she didnt have these issues while on trilipix- no gerd no gout, [ADDITIONAL REASON] Follow up, Laboratory Test Results - Date: (07/31/13). Encounter Diagnosis: Benign essential hypertension (401.1), Type II Diabetes,controlled (250.00), Mixed hyperlipidemia (272.2), GERD (530.81), Gout (274.9), Wrist pain, Left hip pain, Eosinophilia (288.3), Elevated LFT (794.8) [facility] Office Visit On: 06-Jul-2013 16:09 Encounter Reason: Joint Pain - Symptoms include joint pain and joint swelling. Symptoms are located in the left hip and right wrist. The patient describes the pain as dull and aching. Onset was sudden 3 week(s) ago. Ther End: 06-Jul-2013 16:47 e is no known event that preceded symptom onset. The symptoms occur constantly. The patient describes this as moderate in severity and unchanged. There is no radiation.Encounter Diagnosis: Left hip pain, Wrist pain [facility] Office Visit On: 25-Mar-2013 14:23 Encounter Reason: Follow up for chronic medical issues - The patient feels well with no complaints, has good energy level and is sleeping well. Patient has been compliant with instructions. Current medication use: no nico End: 25-Mar-2013 15:08 e effects and compliant with dosing regimen. Patient sleeps 7 hours per night. Nutrition: inappropriate diet, supplemental vitamins and low salt diet. The medical issues the patient is following up for include All identified problems below, blood sugar issues, cardiac issues (palpitations, sinus tachy), gastric reflux, high blood pressure and high cholesterol. weight : (141). Note for Follow up for c hronic medical issues: foot better uric acid level ok no more jaw pain - bp is good- no gerd, [ADDITIONAL REASON] Follow up, Laboratory Test Results - Date: (03/2013). Encounter Diagnosis: Type II Diabetes,controlled (250.00), Benign essential hypertension (401.1), GERD (530.81), Mixed hyperlipidemia (272.2), Gout (274.9) [facility] Office Visit On: 09-Mar-2013 13:14 Encounter Reason: Foot Problem - Symptoms include foot pain, foot swelling and foot numbness. Symptoms are located in the right foot (top of R foot, near great toe and ball of foot). Onset was 1 week(s) ago. The symptoms End: 09-Mar-2013 13:49 occur constantly. The patient describes symptoms as worsening. Associated symptoms include limited weight bearing. Current treatment includes ice, elevation and orthotics.Encounter Diagnosis: Foot pain (729.5) [facility] Office Visit On: 22-Oct-2012 13:10 Encounter Reason: Follow up for chronic medical issues - The patient feels well with minor complaints (jaw pain on left side), has good energy level and is sleeping well. Patient has been compliant with instructions. Cur End: 22-Oct-2012 13:51 rent medication use: no side effects and compliant with dosing regimen. Patient sleeps 7 hours per night. Nutrition: inappropriate diet, supplemental vitamins and low salt diet. The medical issues the p atient is following up for include All identified problems below, blood sugar issues, cardiac issues (palpitations, sinus tachy), gastric reflux, high blood pressure and high cholesterol. weight : (141) . Note for Follow up for chronic medical issues: sheis doing well in general bp is good and weight is stable- she had allergies this year took [place] and helped - no gerd on the meds - no palpitation s on the bystolic not exercising routinelhy- had eye exam ok - sugar up she said eating too ??many cany bars so will work on that- she can pres on and reproduce the pain in jaw- she hasnt called her dentist, [ADDITIONAL REASON] Follow up, Laboratory Test Results - Date: (10/20/12). , [ADDITIONAL REASON] Jaw Pain - left side. Off and on for 3 weeks. Seen dentist and after that has been hurting. No signs of infection or fever. No radiation. No cp/sob. Encounter Diagnosis: Type II Diabetes,controlled (250.00), Mixed hyperlipidemia (272.2), Jaw pain (784.92), Benign essential hypertension (401.1), GERD (530.81) [facility] Office Visit On: 21-May-2012 13:13 Encounter Reason: Follow up for chronic medical issues - The patient feels well with minor complaints (stopped trilipix d/t muscle pain in back- since stopped it pain has resolved), has good energy level and is sleeping End: 21-May-2012 13:43 well. Patient has been compliant with instructions. Current medication use: experiencing side effects and compliant with dosing regimen. Patient sleeps 7 hours per night. Nutrition: inappropriate diet, supplemental vitamins and low salt diet. The medical issues the patient is following up for include All identified problems below, blood sugar issues, cardiac issues (palpitations, sinus tachy), gastric reflux, high blood pressure and high cholesterol. weight : (141). Note for Follow up for chronic medical issues: good bp and weight is stable no more gerd on rx - her bp is good - has felt alot isha r the last 3-4 months - working hard on sugar bp is good, [ADDITIONAL REASON] Follow up, Laboratory Test Results - Date: (05/15/12). Encounter Diagnosis: Type II Diabetes,controlled (250.00), GERD (530.81), Mixed hyperlipidemia (272.2), Eosinophilia (288.3), Benign essential hypertension (401.1) [facility] Office Visit On: 16-Jan-2012 13:06 Encounter Reason: Follow up for chronic medical issues - The patient feels well with no complaints, has good energy level and is sleeping well. Patient has been compliant with instructions. Current medication use: no nico End: 17-Jan-2012 22:24 e effects and compliant with dosing regimen. Patient sleeps 7 hours per night. Nutrition: inappropriate diet, supplemental vitamins and low salt diet. The medical issues the patient is following up for include All identified problems below, blood sugar issues, cardiac issues (palpitations, sinus tachy), gastric reflux, high blood pressure and high cholesterol. weight : (141). Note for Follow up for c hronic medical issues: bp is good and weight is stable and much less gerd maybe 1-2 times a month, [ADDITIONAL REASON] Follow up, Laboratory Test Results - Date: (01/11/12). Encounter Diagnosis: Mixed hyperlipidemia (272.2), Type II Diabetes,controlled (250.00), Benign essential hypertension (401.1), GERD (530.81), PREVENTION OF PNEUMONIA (V03.82), SHINGLES,NEED FOR PROPHYLACTIC VACCINATION AND INOCULATION AGAINST (V05.8) [facility] Office Visit On: 31-Jul-2011 13:16 Encounter Reason: Follow up tests - Date: (July 2011)., [ADDITIONAL REASON] Follow up for chronic medical issues - The patient feels well with minor complai End: 31-Jul-2011 14:00 nts, has good energy level and is sleeping well. Patient has been compliant with instructions. Current medication use: no side effects and compliant with dosing regimen. Patient sleeps 7 hours per night . Nutrition: inappropriate diet, supplemental vitamins and low salt diet. The medical issues the patient is following up for include All identified problems below, blood sugar issues, cardiac issues (pa lpitations, sinus tachy), gastric reflux, high blood pressure and high cholesterol. weight : (141). Note for Follow up for chronic medical issues: she refuses the pneumovax- she has good bp only takin g half bystolic think was making her bp too low but heart rate good- she has only taken higher dose of simvistatin for short period of time- eosinophilia- better- gerd twice a week- has been off prilose c- but even was having on ??- sheis taking glucophage and exercising but admits to eating toomuch sugar Encounter Diagnosis: Type II Diabetes,controlled (250.00), GERD (530.81), Mixed hyperlipidemia (272.2), Eosinophilia (288.3), skin check [facility] Office Visit On: 04-Apr-2011 12:59 Encounter Reason: Follow up for chronic medical issues - The patient feels well with minor complaints (knee pain), has good energy level and is sleeping well. Patient has been compliant with instructions. Current medicat End: 04-Apr-2011 13:42 ion use: no side effects and compliant with dosing regimen. Patient sleeps 7 hours per night. Nutrition: inappropriate diet, supplemental vitamins and low salt diet. The medical issues the patient is fo llowing up for include All identified problems below, blood sugar issues, cardiac issues (palpitations, sinus tachy), gastric reflux, high blood pressure and high cholesterol. weight : (141). Note for Follow up for chronic medical issues: feeling good rash gone no reotuine gerd- bpis good- she really doesnt think she neds to go furthr with knee stuff she is goig to try some exercises at home and see how she does - maria isabel thinkit is her statin , [ADDITIONAL REASON] Follow up, Laboratory Test Results - Date: (03/28/11). Encounter Diagnosis: Type II Diabetes,controlled (250.00), Need for prophylactic vaccination and inoculation against influenza (V04.81), Eosinophilia (288.3), Mixed hyperlipidemia (272.2), GERD (530.81), OTHER SYMPTOMS INVOLVING ABDOMEN AND PELVIS, ABDOMINAL PAIN, RIGHT LOWER QUADRANT (789.03) [facility] Office Visit On: 11-Dec-2010 13:16 Encounter Reason: Follow up for chronic medical issues - The patient feels well with minor complaints (rash from stickers of stress test- not healing), has good energy level and is sleeping well (wakes up and cant get ba End: 11-Dec-2010 14:08 ck to sleep sometimes). Patient has been compliant with instructions. Current medication use: no side effects and compliant with dosing regimen. Patient sleeps 6 hours per night. Nutrition: inappropriat e diet, supplemental vitamins and low salt diet. The medical issues the patient is following up for include All identified problems below, blood sugar issues, cardiac issues (palpitations, sinus tachy), gastric reflux, high blood pressure and high cholesterol. weight : (141). Note for Follow up for chronic medical issues: she admits to not geting in 4 gluophage a day only taking 2 - she will try harder with this and exercised, [ADDITIONAL REASON] Follow up tests - Diagnostic tests include other (labs) and treadmill exercise stress test. Date: (11/28/10). , [ADDITIONAL REASON] Rash - Symptoms include skin redness, while symptoms do not include skin blister ing, skin bumps, pain or skin weeping. Onset was sudden 3 week(s) ago. Onset followed skin contact with an allergen (stress test stickers). The symptoms occur constantly. The patient describes this as m oderate in severity and unchanged. Symptoms are not relieved by topical corticosteroids. Associated symptoms do not include fever, purulent drainage or serous discharge. Current treatment includes topic al corticosteroids. Note for Rash: location is chest and left side abdomen Encounter Diagnosis: Type II Diabetes,controlled (250.00), Dermatitis (692.9), GERD (530.81), Mixed hyperlipidemia (272.2), Benign essential hypertension (401.1), Eosinophilia (288.3) [facility] Office Visit On: 21-Jul-2010 14:43 Encounter Reason: Follow up for chronic medical issues - The patient feels well with minor complaints (some tahcycardia saturday night- woke her up a couple times, none since then), has good energy level and is sleeping we End: 23-Jul-2010 22:38 ll. Patient has been compliant with instructions. Current medication use: no side effects and compliant with dosing regimen. Patient sleeps 6 hours per night. Nutrition: inappropriate diet, supplemental vitamins and low salt diet. The medical issues the patient is following up for include All identified problems below, blood sugar issues, cardiac issues (palpitations, sinus tachy), gastric reflux, hig h blood pressure and high cholesterol. weight : (home- 137). Note for Follow up for chronic medical issues: mom has been sick and girlfriend sick so more stressors-no rotuien gerd-hasnt been taking he r extra d-she wwill add back in - only 2 glucophage a day- 4- gave her gerd- her eosinophil count half of what it was, [ADDITIONAL REASON] Follow up, Laboratory Test Results - Date: (07/17/10). Encounter Diagnosis: Type II Diabetes,controlled (250.00) , SYMPTOM, TACHYCARDIA NOS (785.0), Eosinophilia (288.3), Benign essential hypertension (401.1), Mixed hyperlipidemia (272.2), GERD (530.81) [facility] Phone Encounter On: 27-Jun-2010 14:50 Encounter Diagnosis: Mixed hyperlipidemia (272.2), Benign essential hypertension (401.1), POSTMENOPAUSAL STATE End: 27-Jun-2010 14:56 [facility] Office Visit On: 28-Dec-2009 13:06 Encounter Reason: Follow up for chronic medical issues - The patient feels well with no complaints ,has good energy level and is sleeping well. Patient has been compliant with instructions. Current medication use: no nico End: 28-Dec-2009 14:12 e effects and compliant with dosing regimen. Patient sleeps 7 hours per night. Nutrition: balanced diet ,supplemental vitamins and low salt diet. The medical issues the patient is following up for inclu de All identified problems below ,blood sugar issues ,cardiac issues (palpitations, sinus tachy) ,gastric reflux ,high blood pressure and high cholesterol. weight : (134). Note for Follow up for chroni c medical issues: she is back on full dose bystolic - didnt feel right on lower dose and went backup and feels fine on this - bp is good and she is still working on diet and weight loss with walking- n o gerd- she admits to noncompliance with her diet- and that is why sugar going up, [ADDITIONAL REASON] Follow up, Laboratory Test Results - Date: (12/23/09). Encounter Diagnosis: Type II Diabetes,controlled (250.00), Benign essential hypertension (401.1), Mixed hyperlipidemia (272.2), Eosinophilia (288.3), GERD (530.81), Elevated blood pressure reading without diagnosis of hypertension (796.2) [facility] Office Visit On: 17-Aug-2009 13:01 Encounter Reason: Follow up for chronic medical issues - The patient feels well with no complaints ,has good energy level and is sleeping well. Patient has been compliant with instructions. Current medication use: no nico End: 17-Aug-2009 13:52 e effects and compliant with dosing regimen. Patient sleeps 7 hours per night. Nutrition: balanced diet ,supplemental vitamins and low salt diet. The medical issues the patient is following up for inclu de All identified problems below ,blood sugar issues ,cardiac issues (palpitations, sinus tachy) ,gastric reflux ,high blood pressure and high cholesterol. weight : (134). Note for Follow up for chroni c medical issues: feeling well -cspasm is better and bp is low normal and not badly dizzy little -am - weight coming down and trying- feels better- than has- less gerd- tolerating statin well, [ADDITIONAL REASON] Follow up, Laboratory Test Results - Date: (08/15/09). Encounter Diagnosis: Type II Diabetes,controlled (250.00), Mixed hyperlipidemia (272.2), Benign essential hypertension (401.1), Eosinophilia (288.3), Cervical Spasm (728.85), GERD (530.81) [facility] Office Visit On: 21-Jun-2009 13:45 Encounter Diagnosis: Eosinophilia (288.3), Benign essential hypertension (401.1), Cervical Spasm (728.85) End: 21-Jun-2009 18:00 [facility] Office Visit On: 12-May-2009 8:25 Encounter Reason: Neck pain - The onset of the neck pain has been sudden following no specific incident and has been occurring in a persistent pattern for 3 days. The course has been constant. The neck pain is described End: 12-May-2009 9:13 as a moderate to severe sharp stabbing (burning). The neck pain is described as being located in the right over cervical spine and sides of cervical spine. The pain radiates to the up back of head The b ack pain is aggravated by bending and lifting. The back pain is relieved by medication (tylenol helps). The symptoms have been associated with fever (low grade) and neck stiffness, while the symptoms haley ve not been associated with chills ,trauma ,use of corticosteroids ,use of anticoagulants ,headache or paresthesia of arms. Note for Neck pain: today feels better but was concerned because had strept last week- hurts tomove certain directions- no headache, [ADDITIONAL REASON] Follow up for chronic medical issues - The patient feels well with minor complai nts (very stiff neck) ,has good energy level and is sleeping well. Patient has been compliant with instructions. Current medication use: no side effects and compliant with dosing regimen. Patient sleeps 7 hours per night. Nutrition: balanced diet ,supplemental vitamins and low salt diet. The medical issues the patient is following up for include All identified problems below ,blood sugar issues ,cardi ac issues (palpitations, sinus tachy) ,gastric reflux ,high blood pressure and high cholesterol. weight :. Note for Follow up for chronic medical issues: never saw Dr Donovan - saw Dr Yoder and had egd- she feels better stomach mittal- she has decided she was allergic to wheat and got off that and her stomach better- -- back and leg pain gone- she went to [employer] and doing certain exercises and got better- sob better-eosinophil count up- no change in bowels not having diarrhea- no allergy sx- or rash- or joint pain , [ADDITIONAL REASON] Follow up, Laboratory Test Results - Date: (05/04/09). Encounter Diagnosis: Type II Diabetes,controlled (250.00), Benign essential hypertension (401.1), Mixed hyperlipidemia (272.2), GERD (530.81), Epigastric pain (789.06), SOB (786.05), Abnormal Glucose Tolerance Test (790.22), Eosinophilia (288.3), Cervical Spasm (728.85) [facility] Office Visit On: 22-Sep-2008 13:02 Encounter Reason: Follow up for chronic medical issues - The patient feels well with minor complaints (continued stomach issues and back pain) ,has good energy level and is sleeping well. Patient has been compliant with End: 23-Sep-2008 23:24 instructions. Current medication use: no side effects and compliant with dosing regimen. Patient sleeps 7 hours per night. Nutrition: balanced diet ,supplemental vitamins and low salt diet. The medical issues the patient is following up for include All identified problems below ,blood sugar issues ,cardiac issues (palpitations, sinus tachy) ,gastric reflux ,high blood pressure and high cholesterol. No te for Follow up for chronic medical issues: has had stomach problems for 30 some years- never scoped- pain in low back radiating into legs no weakness or numbness, [ADDITIONAL REASON] Follow up, Laboratory Test Results - Date: (09/15/08). Encounter Diagnosis: Abnormal Glucose Tolerance Test (790.22), Elevated blood pressure reading without diagnosis of hypertension (796.2), Epigastric pain (789.06), Mixed hyperlipidemia (272.2), Low back pain (724.2), SOB (786.05), Chest pain (786.59) [facility] Office Visit On: 10-May-2008 7:48 Encounter Reason: Rash - The onset of the rash has been acute and has been occurring in a persistent pattern for 2 weeks. The course has been increasing. The rash is characterized as red. The rash was first seen on the l End: 10-May-2008 8:33 ower extremity (bilaterally). It spread to the face and the back. There has been associated itching, while there has been no anorexia or chills. Note for Rash: has used cortyisone cream and udder crem e- no new meds- new shaving lotion new razor and new soapEncounter Diagnosis: contact dermatitis [facility] Office Visit On: 17-Mar-2008 13:15 Encounter Reason: Follow up for chronic medical issues - The patient feels well with no complaints ,has good energy level and is sleeping well. Patient has been compliant with instructions. Current medication use: no nico End: 17-Mar-2008 14:20 e effects. Patient sleeps 7 hours per night. Impact of disease: no overall impact. Nutrition: balanced diet. The medical issues the patient is following up for include blood sugar issues ,high blood pre ssure and high cholesterol. blood pressure range : (intermittent). Note for Follow up for chronic medical issues: she is feeling well-not having much abdominal painat this point no gerd - wt down 5 po unds and trying - 4 glucophage made her sick so stayed at 3 -- , [ADDITIONAL REASON] Follow up, Laboratory Test Results - Lab results: abnormal liver function tests. Date: (03/08/08). Encounter Diagnosis: Abnormal Glucose Tolerance Test (790.22), Mixed hyperlipidemia (272.2), Elevated blood pressure reading without diagnosis of hypertension (796.2), GERD (530.81), Abdominal Pain,Unspecified Site (789.00), mole [facility] Historical Summary On: 19-Jan-2008 8:06 [facility] End: 19-Jan-2008 8:06 Office Visit On: 12-Dec-2007 7:14 Encounter Reason: Follow up for chronic medical issues - The patient feels well with minor complaints (abd pain going into flanks) ,has good energy level and is sleeping well. Patient has been compliant with instructions End: 15-Dec-2007 19:16 . Current medication use: no side effects and non-compliant with dosing regimen (stopped the protonix and only taking 1 glucophage instead of 2.). Patient sleeps 7 hours per night. The medical issues th e patient is following up for include All identified problems below ,blood sugar issues ,cardiac issues (sinus tachy, palpitations) ,gastric reflux ,high blood pressure ,high cholesterol and other (allergic rhinitis). weight :. , [ADDITIONAL REASON] Follow up, Laboratory Test Results - Date: (12/02/07). , [ADDITIONAL REASON] Abdominal pain - The onset of the pain has been gradual and has been occurring i n an intermittent pattern for weeks. The course has been recurrent. The pain is described as a moderate dull ache. The pain is described as being located in the right lower quadrant and left lower quadr ant. The pain radiates to the left flank and right flank. The symptoms have no aggravating factors. The symptoms have no relieving factors. The symptoms have been associated with bloating ,constipation ,diarrhea and nausea, while the symptoms have not been associated with bloody stools ,chest pain ,dark urine ,dysuria ,fever ,vaginal bleeding ,vaginal discharge or vomiting. Note for Abdominal pain: comes and goes- not present now Encounter Diagnosis: Elevated blood pressure reading without diagnosis of hypertension (796.2), Abnormal Glucose Tolerance Test (790.22), Abdominal Pain,Unspecified Site (789.00), Mixed hyperlipidemia (272.2), GERD (530.81) [facility] Historical Summary On: 20-Oct-2007 9:58 [facility] End: 20-Oct-2007 10:24 Office Visit On: 20-Aug-2007 13:35 Encounter Reason: Follow up for chronic medical issues - The patient feels well with minor complaints (IBS problems, see's taco for this. ) ,has good energy level and is sleeping well. Patient has been compliant with i End: 20-Aug-2007 14:30 nstructions. Current medication use: no side effects and compliant with dosing regimen. Nutrition: balanced diet ,supplemental vitamins and low salt diet. The medical issues the patient is following up for include All identified problems below ,blood sugar issues ,cardiac issues (sinus tachycardia) ,gastric reflux ,high blood pressure ,high cholesterol and other (allergic rhinitis). weight :. Note for Follow up for chronic medical issues: she used to use zelnorm for her ibs- so sad that not availbale-- she is seeing [facility] for this-- encourage fiber daily-- gerd is better- bp is certainly good-- , [ADDITIONAL REASON] Follow up, Laboratory Test Results - Date: (08/15/07). Encounter Diagnosis: Abnormal Glucose Tolerance Test (790.22), GERD (530.81), Elevated blood pressure reading without diagnosis of hypertension (796.2), Mixed hyperlipidemia (272.2) [facility] Office Visit On: 24-Mar-2007 13:10 Encounter Reason: Follow up, Laboratory Test Results - Date: (03/14/07). , [ADDITIONAL REASON] Follow up for chronic medical issues - The patient feels well with minor complai End: 24-Mar-2007 13:44 nts ,has good energy level and is sleeping well. Patient has been compliant with instructions. Current medication use: no side effects and compliant with dosing regimen. Patient sleeps 7 hours per night . Impact of disease: no overall impact. Nutrition: balanced diet and supplemental vitamins. The medical issues the patient is following up for include All identified problems below ,blood sugar issues , cardiac issues ,gastric reflux ,high blood pressure and high cholesterol. Note for Follow up for chronic medical issues: she has female exam set up and mammo- refuses flu vaccine Encounter Diagnosis: Abnormal Glucose Tolerance Test (790.22), GERD (530.81), Elevated blood pressure reading without diagnosis of hypertension (796.2), Mixed hyperlipidemia (272.2) [facility] Office Visit On: 18-Dec-2006 13:13 Encounter Reason: Follow up Meds - The patient feels well with no complaints ,has good energy level and is sleeping well. Patient has been compliant with instructions. Current medication use: no side effects and complian End: 18-Dec-2006 14:24 t with dosing regimen. Note for Follow up Meds: Pt was started on atenolol for cp and sinus tachycardia. Pt states no more symptoms.had both upper and lower scopes 11/2 years ago and didnt find anythi ng- she hasnt been taking the protonix bid as was intructed-- pain is epigastric-- doesnt have gallbladder-- no more palpitations-- heart rate is much betterEncounter Diagnosis: Abnormal Glucose Tolerance Test (790.22), sinus tachycardia, Epigastric pain (789.06), Mixed hyperlipidemia (272.2), Headache (784.0) [facility] Office Visit On: 08-Oct-2006 8:04 Encounter Reason: Follow up, Diagnostic Procedure Results - Diagnostic tests include treadmill exercise stress test. Date: (09/02/06- on face sheet). , End: 08-Oct-2006 8:45 [ADDITIONAL REASON] Follow up, Laboratory Test Results - Date: (09/05/06 and 09/10/06- on face sheet). Encounter Diagnosis: sinus tachycardia, Chest pain (786.59) [facility] Office Visit On: 29-Aug-2006 15:02 Encounter Reason: Follow up, Laboratory Test Results - Lab results: other (CBC, TSH,CMP,H.Pylori). Date: (08-19). Note for Follow up, Laboratory Test Results: fatigue, has improves, no cp,sob palpatations. Pt states lin End: 29-Aug-2006 22:18 t every since she had massotheraphy her s/s have improved, [ADDITIONAL REASON] Follow up, Diagnostic Procedure Results - Diagnostic tests include other (holter monitor, echo). Date: (08/23/06 and 08-30-06). Note for Follow up, Diagnostic Procedure Results: fatigue, but has improved Encounter Diagnosis: sinus tachycardia, SYMPTOMS INVOLVING CARDIOVASCULAR SYSTEM; PALPITATIONS (785.1), Elevated blood pressure reading without diagnosis of hypertension (796.2), GERD (530.81), Epigastric pain (789.06) [facility] Office Visit On: 20-Aug-2006 10:26 Encounter Reason: Palpitations - The onset of the palpitations has been acute and they have been occurring in a persistent pattern for 2 months. The course has been increasing. The palpitations are characterized as short End: 20-Aug-2006 21:38 bursts of rapid beating and increased awareness of heart beats. There have been no precipitating factors. The symptoms have no relieving factors. The symptoms have been associated with chest pain (tigh tness in chest at times) and smoking. Note for Palpitations: Worse at noc. Could almost hear it. When laying down hears it the most. Also felt chest tightness occasionally with. Occasional shortness o f breath. Feel aware of heart rate. Has noticed it off and on since Mar but recently has become more constant and more concerning to her. Had worn a Holter monitor but was told it didn't work.Encounter Diagnosis: SYMPTOMS INVOLVING CARDIOVASCULAR SYSTEM; PALPITATIONS (785.1), Epigastric pain (789.06), GERD (530.81) [facility] Office Visit On: 22-Jul-2006 9:32 Encounter Diagnosis: SYMPTOMS INVOLVING CARDIOVASCULAR SYSTEM; PALPITATIONS (785.1) End: 22-Jul-2006 11:00 [facility] Office Visit On: 03-Jul-2006 8:14 Encounter Reason: Follow up for chronic medical issues - The patient feels well with no complaints ,has good energy level and is sleeping well. Patient has been compliant with instructions. Current medication use: no nico End: 03-Jul-2006 8:55 e effects and compliant with dosing regimen. Patient sleeps 8 hours per night. Nutrition: balanced diet ,no supplemental vitamins & iron and low salt diet. The medical issues the patient is followin g up for include All identified problems below ,blood sugar issues ,gastric reflux ,high blood pressure ,high cholesterol and other (palpitations). fasting blood sugars : and weight :. , [ADDITIONAL REASON] Follow up, Laboratory Test Results - Date: (06/26/06- on face sheet). , [ADDITIONAL REASON] Edema - The onset of the edema has been gradual and has been occurring in an int ermittent pattern for months. The course has been recurrent. The edema is described as being located in both lower extremities. The symptoms prolonged standing. Note for Edema: not noted in the am- notes if walks alot - her shoes feel tighter , [ADDITIONAL REASON] Palpitations - The onset of the palpitations has been acute and they have been occurring in an intermittent pattern for 1 weeks. The course has been recurrent. The palpitations are characterized as increased awareness of heart beats. There have been no precipitating factors. The symptoms have no aggravating factors. The symptoms have no relieving factors. The symptoms have been as sociated with use of decongestants (benedryl), while the symptoms have not been associated with anxiety ,chest pain ,syncope or use of antidepressants. Note for Palpitations: she had them previously a nd they have come back again and she is still using caffeine-- no dizzy , cp or sob- she is aware that heart is beating faster actually took pulse and [id number] Encounter Diagnosis: Abnormal Glucose Tolerance Test (790.22), GERD (530.81), Mixed hyperlipidemia (272.2), SYMPTOMS INVOLVING CARDIOVASCULAR SYSTEM; PALPITATIONS (785.1), OTHER SYMPTOMS INVOLVING ABDOMEN AND PELVIS, ABDOMINAL PAIN, RIGHT LOWER QUADRANT (789.03) [facility] Office Visit On: 26-Mar-2006 9:24 Encounter Reason: Follow up for chronic medical issues - The patient feels well with minor complaints ,has good energy level and is sleeping well. Patient has been compliant with instructions. Current medication use: com End: 26-Mar-2006 10:35 pliant with dosing regimen. Patient sleeps 7 hours per night. Nutrition: balanced diet. Note for Follow up for chronic medical issues: no cough or sob- no pneumonia sx- bp much better, no more gerd, [ADDITIONAL REASON] Follow up, Laboratory Test Results - Lab results: other. Date: (02-26-2006). Current symptoms/reason for visit include/s Follow up visit with no current symptoms. Encounter Diagnosis: Abnormal Glucose Tolerance Test (790.22), Mixed hyperlipidemia (272.2), SYMPTOMS INVOLVING CARDIOVASCULAR SYSTEM; PALPITATIONS (785.1), OTHER SYMPTOMS INVOLVING ABDOMEN AND PELVIS, ABDOMINAL PAIN, RIGHT LOWER QUADRANT (789.03) [facility] Office Visit On: 13-Feb-2006 16:02 Encounter Reason: new patient female physical - Last seen between 3-6 months ago. General health: feels well with minor complaints (SHOULDER PAIN AND PAIN IN KNEE'S AND FEET.) ,has good energy level and is sleeping well. End: 13-Feb-2006 22:32 The patient's appetite is normal. Nutrition: normal/adequate. Exercises 3 days per week. Sleeps on average 7 hours per night. Elimination problems include constipation (TAKES METAMUCIL). Safety measure s include appropriate use of safety belts and home smoke detectors. There are no current emotional problems. screening, colonoscopy ,screening, mammography (DUE FOR IT THIS YEAR.) and screening, Pap smear (DUE FOR THIS). , [ADDITIONAL REASON] Cough - The onset of the cough has been acute. The cough is characterized as dry. There has been no associated dyspnea or fever. Encounter Diagnosis: Hypoglycemia (251.2), Mixed hyperlipidemia (272.2), PNEUMONIA, ORGANISM UNSPECIFIED (486.), GERD (530.81), Elevated blood pressure reading without diagnosis of hypertension (796.2) [facility] Payers [employer]/MedicareTRANS KOFFICarnneka Crisostomo; [place] guarantor
--- OUTSIDE RECORDS SUMMARY | 2018-05-07 02:07 | XMS RPT_ITS | Continuity of Care Document ---
:1950 Author Organization [facility] Address [facility] [address] [place] [address] Phone Care Team Providers Name Role Phone Katie Fernández DO Unavailable Lars Santos Unavailable George Haskins MD Unavailable Dr. Tanner Jamil Unavailable Isabella Ochoa LPN Unavailable Unavailable Rosalie Lunsford Unavailable Unavailable Unavailable Unavailable Problems Name Dates Details [...] 250.00) Comments: HBA1c 5.6(05/01)HBA1c 5.8( (12/29)eye exam: [facility], 01/27.FBS: does not check at home, usualy in 120Eye exam : 01/28, [facility] Status: Active Deliveries (Parity) Comments: 2 Status: [...] neoplasm of breast) (Z12.31, V76.12) Comments: dr iHlario orders adn rev-- not due till november [...] (R68.84, 784.92) Comments: get xray Status: Active Lymphadenopathy, cervical (R59.0, 785.6) Comments: [...] Active Monoclonal gammopathy (D47.2, 273.1) Status: Active Need for Tdap vaccination (Renamed from Need for bgxnztvhmv-enahsfe-yqonozmvz (Tdap) vaccine, adult/adolescent) (Z23, V06.1) Status: Active Non-smoker (Z78.9, V49.89) Status: Active Nonsquamous nonsmall cell neoplasm of lung, 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, 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) Comments: ccf being treated with gene therapy - found the [employer] cat scan neck/chest/abdomen q3mo and brain scan [...] screen Status: Active sinus tachycardia Status: Active Smoker (F17.200, 305.1) Comments: [facility] y[facility] agoWorried about gaining weight Status: Active Sore throat (J02.9, 462) Status: Active Tonsillectomy Status: Active Unspecified Diagnosis Status: Active Varicose veins of legs (I83.93, 454.9) Status: Active Vitamin D deficiency (E55.9, 268.9) Status: Active Vitamin D deficiency (E55.9, 268.9) Comments: with K2 -- 5k daily Status: Active Medications Name Dates Details Alecensa [...] days Quantity: 90 {Tablet} Refills: 3 Ordered:23-Dec-2017 Eileen Fernández DO, DO, Kathleen Start : 23-Dec-2017 Active Amoxicillin-Pot Clavulanate 875-125 MG Oral Tablet [...] days Quantity: 30 {Gram} Refills: 3 Ordered:17-Feb-2018 Don YUNIsabella Start : 06-Nov-2017 End : 17-Feb-2018 Inactive NIASPAN, 500MG (Oral Tablet Extended Release) 1 (one) Tablet ER qd for 0 days Quantity: 30 {Tablet_ER} Refills: 3 Ordered:17-Aug-2009 America Molina Start : 17-Mar-2008 Inactive Nystatin 301908 UNIT/ML Mouth/Throat Suspension 5 cc cc 5times [...] Refills: 0 Ordered:17-Aug-2009 Manasa Molina Vitamin D3 23821 UNIT Oral Capsule 1 (one) Capsule once a week for 60 days Quantity: 8 {Capsule} Refills: 0 Ordered:19-Apr-2016 Олег Santos MD Start : 19-Apr-2016 End : 18-Jun-2016 Inactive Vitamin K2-Vitamin D3 45-2000 MCG-UNIT Oral Capsule daily (45-2000 MCG-UNIT) Inactive ZOSTAVAX, 84244MWR/0.65ML (Subcutaneous Solution Reconstituted) 1 (one) For Solution one time dose for 0 days Quantity: 1 {For_Solution} Refills: 0 Ordered:22-Oct-2012 America Molina Start : 16-Jan-2012 End : 22-Oct-2012 Inactive Comments:Bring to doctors office immediately to receive injection unless you receive it at the pharmacy. ASPIRIN BUF(EFCJK-SEPAC-KOJOE), 81MG (Oral Tablet Delayed Release) 1 (one) Tablet DR Daily for 0 days Refills: 0 Ordered:03-Jul-2006 America Molina Start : 03-Jul-2006 End : 20-Aug-2007 Discontinued ATENOLOL, 25MG (Oral Tablet) 1 (one) Tablet q am for 0 days Quantity: 30 {Tablet} Refills: 3 Ordered:20-Aug-2007 Jewell VANCE Start : 20-Aug-2007 End : 20-Aug-2007 Discontinued Bystolic 5 MG Oral Tablet 1 (one) Tablet qd for 0 days Quantity: 90 {Tablet} Refills: 3 Ordered:12-Dec-2017 Marina Weaver Start : 14-Mar-2017 End : 12-Dec-2017 Discontinued CALCIUM + D, 651-572WN-BWKY (Oral Tablet) 1 tab qd for 0 days Refills: 0 Ordered:12-Dec-2017 Marina Weaver End : 12-Dec-2017 Discontinued Comments:This order discontinued per [employer]. CELEBREX, 100MG (Oral Capsule) 1 (one) Capsule Capsule bid for 0 days Quantity: 60 {Capsule} Refills: 0 Ordered:09-Sep-2015 America Molian Start : 06-Jul-2013 End : 09-Sep-2015 Discontinued Comments:take with food COLCRYS, 0.6MG (Oral Tablet) 1 Tablet 2 tablets then repeat in 1 hour 1 tablet. for 0 days Quantity: 6 {Tablet} Refills: 0 Ordered:25-Mar-2013 Jewell Coffman DO Start : 25-Mar-2013 End : 25-Mar-2013 Discontinued LEVAQUIN, 500MG (Oral Tablet) 1 (one) Tablet Daily for 0 days Quantity: 14 {Tablet} Refills: 0 Ordered:13-Feb-2006 Serenity Mixon Start : 13-Feb-2006 End : 26-Mar-2006 Discontinued Omeprazole 20 MG Oral Capsule Delayed Release 1 (one) Capsule DR qd for 90 days Quantity: 90 {Capsule} Refills: 3 Ordered:12-Dec-2017 Marina Weaver Start : 04-Mar-2017 End : 12-Dec-2017 Discontinued PROTONIX, 40MG (Oral Tablet Delayed Release) [address] BID for 0 days Refills: 0 Ordered:15-Dec-2007 Jewell Coffman DO Start : 20-Aug-2007 End : 12-Dec-2007 Discontinued Comments:increase to BID until seen again. SIMVASTATIN, 40MG (Oral Tablet) 1 (one) Tablet qhs for 0 days Quantity: 30 {Tablet} Refills: 3 Ordered:16-Jan-2012 Jewell Coffman DO Start : 16-Jan-2012 End : 16-Jan-2012 Discontinued TiZANidine HCl 4 MG Oral Tablet 1 (one) Tablet qhs prn for 0 days Quantity: 30 {Tablet} Refills: 0 Ordered:12-Dec-2017 Marina Weaver Start : 08-Nov-2017 End : 12-Dec-2017 Discontinued TOPICORT, 0.25% (External Cream) 1 Cream bid for 0 days Quantity: 60 {Cream} Refills: 1 Ordered:25-Mar-2013 Jewell Coffman DO Start : 25-Mar-2013 End : 25-Mar-2013 Discontinued TRICOR, 54MG (Oral Tablet) 1 (one) Tablet qd for 0 days Quantity: 30 {Tablet} Refills: 3 Ordered:20-Aug-2007 America Molina Start : 20-Aug-2007 End : 12-Dec-2007 Discontinued TRILIPIX, 135MG (Oral Capsule Delayed Release) 1 (one) Capsule DR daily for 0 days Quantity: 30 {Capsule} Refills: 3 Ordered:09-Sep-2015 America Molina Start : 06-Oct-2013 End : 09-Sep-2015 Discontinued Comments:generic, generic, generic Zoloft 50 MG Oral Tablet 1 (one) Tablet daily for 30 days Quantity: 30 {Tablet} Refills: 3 Ordered:12-Dec-2017 Marina Weaver Start : 30-Aug-2017 End : 12-Dec-2017 Discontinued [...] chemistry, unspecified (R79.9, 790.6) Comments: went to [facility] and got achey and elevated liver function [...] contact dermatitis Status: Resolved as of 22-Sep-2008 Cough (R05, 786.2) Comments: Lets us know if doesnt improve in 2--3 weekRobitussin DM and mucinex OTCCold beginning november, no antibiotic. Lingering cough, occasional yellow, better now.No temeprtaure, sinus aches, earaches, runny nsoe Status: Inactive as of 19-Apr-2016 Cramp of both lower extremities (R25.2, 729.82) [...] Procedures Procedure Dates Details [place] (120[address]) Date: 16-Jan-2012 Cancelled Colonoscopy, Screening Completed Jan-2015 Comments: benign polyp removed Date Value Details 06-Dec-2017 SCREENING MAMM (CAD), BILAT Result: Comments: See Note; NOTES: [facility] Imaging Services [address] [place] [address] SCREENING MAMM (CAD), BILAT MR#: [id number] Acct: [id number] Name: LISETTE BROWN Rep # : [id number] : 1950 F 67 From: Riccardo Vazquez MD PCP: Katie Fernández DO Status: REG CLI Study: SCREENING MAMM (CAD), BILAT Date of Exam: 12/06/17 Exam# [id number] Ordering Dr: Paulo Hilario MD MAMMOGRAPHY - [...] Riccardo Vazquez MD at 13:26 EDT Tel [phone], Service support , CC: Mary Hilario MD; Katie Fernández DO Neck Band Maker: Signed 12-Mar-2017 Discharge Instruction Result: Comments: See Note; NOTES: [facility] Medical Records Department [address] [place] [address] Discharge Instruction 03/09/17 0655 MR#: [id number] Acct: [id number] Name: LISETTE BROWN Rep #: [id number] : 1950 66 From: Norm Box MD PCP: Katie Fernández DO Status: DEP ER ED Disposition - Plan for ED Patient: Disposition: Home or Assisted Living Chief Compl aint: Eye Problem Instructions: ED Eye Injury Corneal Abrasion Referrals: Katie Fernández DO [Primary Care Provider] - Additional Instructions: Follow with your tech ed teacher check in 5-7 days Wha t to do if you have Problems For any increased pain, shortness of breath, bleeding, nausea or vomiting, chest pain, or any unexpected problems, contact your Primary Care Provider. Call Doctors Registry ([phone]) or report to the closest Emergency Room. Call 911 if necessary. 03/12/17 0643 <Electronically signed by Norm Box MD> Date Norm Box MD Cosigner Signature (If Indicated): Date CC: Katie Fernández DO 12-Mar-2017 Emergency Department Summary Result: Comments: See Note; NOTES: [facility] Medical Records Department [address] [place] [address] Emergency Department Summary 03/09/17 0653 MR#: [id number] Acct: [id number] Name: LISETTE BROWN Rep #: [id number] : 1950 66 From: Norm Box MD [...] her eye. She will follow-up with her tech ed teacher. She will return if she worsens despite treatment. Treatment Plan: [] Disposition: [] Impression: [] Right corneal abrasion secondary to contact lens. T his note was generated with [employer] dictation software. It may contain incorrect words, spelling, and punctuation that were not noted in review of the chart prior to signing ED Disposition - Plan for ED Patient: Chief Complaint: Eye Problem Referrals: Katie Fernández DO [Primary Care Provider] - What to do if you have Problems For any increased pain, shortness of breath, bleeding, nausea or vom iting, chest pain, or any unexpected problems, contact your Primary Care Provider. Call Doctors Registry ([phone]) or report to the closest Emergency Room. Call 911 if necessary. 03/12/17 0643 &a mp;#60;Electronically signed by Norm Box MD> Date Norm Box MD Cosigner Signature (If Indicated): Date CC: Katie Fernández DO 11-Mar-2017 Discharge Instruction Result: Comments: See Note; NOTES: [facility] Medical Records Department [address] [place] [address] Discharge Instruction 03/11/17 1049 MR#: [id number] Acct: [id number] Name: LISETTE BROWN Lizz Rep #: [id number] : 1950 66 From: Guilherme Sun MD PCP: Katie Fernández DO Status: DEP ER ED Disposition - Plan for ED Patient: Disposition: Home or Assisted Living Chief Complai nt: Eye Problem Instructions: ED Eye Injury Corneal Abrasion Referrals: Guilherme Broussard MD [STAFF PHYSICIAN] - As soon as possible Additional Instructions: The contacts out. Usual glasses. Call follow -up with Dr. Broussard at the [facility] soon as possible. There is trace in ophthalmic ointment 4 times a day right eye. Tetracaine eyedrops for pain but only for the next 24 hours. Sunglasses to prevent glare. What to do if you have Problems For any increased pain, shortness of breath, bleeding, nausea or vomiting, chest pain, or any unexpected problems, contact your Primary Care Provid er. Call Doctors Registry ([phone]) or report to the closest Emergency Room. Call 911 if necessary. 03/11/17 1545 <Electronically signed by Guilherme Sun MD> Date ___ Guilherme Sun MD Cosigner Signature (If Indicated): Date CC: Katie Fernández DO 11-Mar-2017 Emergency Department Summary Result: Comments: See Note; NOTES: [facility] Medical Records Department [address] [place] [address] Emergency Department Summary 03/11/17 1046 MR#: [id number] Acct: [id number] Name: LISETTE BROWN Rep #: [id number] : 1950 66 From: Guilherme Sun MD PCP: Katie Fernández DO Status: DEP ER - ER Visit Summary Date of Service: 03/11/17 Chief Complaint: Right eye discomfor t History of Present Illness: The patient is a 66 F does wear contacts. On started having right eye discomfort. Was seen in the [facility] ER Saturday evening and was diagnosed with [...] right eye with good relief of symptoms. [facility] t-lamp examination was performed with floor seen. [...] lens use. This note was generated with [employer] dictation software. It may contain incorrect words, spelling, and punctuation that were not noted in review of the chart prior to signing ED Disposition - Plan for ED Patient: Chief Complaint: Eye Problem Referrals: Katie Fernández DO [Primary Care Provider] - What to do if you have Problems For any inc reased pain, shortness of breath, bleeding, nausea or vomiting, chest pain, or any unexpected problems, contact your Primary Care Provider. Call [facility] ([phone]) or report to the closest Emergency Room. Call 911 if necessary. 03/11/17 1545 <Electronically signed by Guilherme Sun MD> Date Guilherme Morales ignature (If Indicated): Date CC: Katie Fernández DO 23-Nov-2016 SCREENING MAMM (CAD), BILAT Result: Comments: See Note; NOTES: [facility] Imaging Services [address] [place] [address] SCREENING MAMM (CAD), BILAT MR#: [id number] Acct: [id number] Name: KRANTHILISETTE Lizz Rep # : [id number] : 1950 F 66 From: Riccardo Vazquez MD PCP: Katie Fernández DO Status: [facility] Study: SCREENING MAMM (CAD), BILAT Date of Exam: 11/23/16 Exam# [id number] Ordering Dr: Paulo Hilario MD MAMMOGRAPHY - [...] delay biopsy of a clinically suspicious abnormality. [id number] Electronically Signed: Riccardo Vazquez MD a t 10:53 EDT Tel [phone], Service support , CC: Mary Hilario MD; Katie Fernández DO Neck Band Maker: Signed 03-Sep-2016 Soft Tissue Neck WITH Contrast Result: Comments: See Note; NOTES: [facility] Imaging Services [address] [place], [place] [address] [place] [address] Verdana 4d Soft Tissue Neck WITH Contrast MR#: [id number] Acct: [id number] Name: Siobhan BROWN Rep #: [id number] : 1950 F 65 From: Nanette Miranda MD PCP: Katie Fernández DO Status: REG CLI Study: Soft Tissue Neck WITH Contrast Date of Exam: 09/03/16 Exam# [id number] Ordering Dr: Katie Breen DO STUDY: CT [...] FINDINGS: Normal bilateral parotid glands. Normal bilateral computer technology teacher spaces. Normal bilateral parapharyngeal spaces. Normal [...] Service support , CC: Katie Fernández DO Neck Band Maker: Signed 23-Nov-2015 Unilat Rt Diag Digital AND CAD Result: Comments: See Note; NOTES: [facility] Imaging Services [address] [place] [address] Verdana 4d Unilat Rt Diag Digital AND CAD MR#: [id number] Acct: [id number] Name: LISETTE BROWN Rep #: [id number] : 1950 F 65 From: Nanette Miranda MD PCP: Олег Santos Status: REG CLI Study: Unilat Rt Diag Digital AND CAD Date of Exam: 11/23/15 Exam# [id number] Ordering Dr: Mary Hilario MD MAMMOGRAPHY - UNILATERAL DIAGNOSTIC: RIGHT BREAST REASON FOR EXAM: Female, 65 years old. cluster of microcalcification is noted in the right breast lateral aspect PERTINENT HISTORY: FM H X- MOTHER @ 78, 3 MAT AUNTS AGES ?. RT BREAST BX 1991 TECHNIQUE: Digital unilateral breast magnification views in [...] at 9:33 EDT Tel , Service support [phone], CC: Mary Hilario MD; Олег Santos Neck Band Maker: Signed 21-Nov-2015 Bilat Scrn Digital AND CAD Result: Comments: See Note; NOTES: [facility] Imaging Services [address] [place] [address] Verdana 4d Bilat Scrn Digital AND CAD MR#: [id number] Acct: [id number] Name: DINORA BROWN Rep #: [id number] : 1950 F 65 From: Nanette Miranda MD PCP: Олег Santos Status: REG CLI Study: Bilat Scrn Digital AND CAD Date of Exam: 11/21/15 Exam# [id number] Ordering Dr: Mary Hilario MD MAMMOGRAPHY - [...] recommended. No other significant abnormalities are identified. BI/Bilat Scrn Digital AND CAD IMPRESSION: Further imaging evaluation recommended, as described above. (E) ASSESSMENT CATEGORY: BIRADS Category 0: Incomplete. Need additional imaging evaluation. A letter regarding these results will be sent to the patient by the facility withi n 30 days. Approximately 10% of breast cancers are not detected by mammography. A normal mammogram should not delay biopsy of a clinically suspicious abnormality. [id number] Electronically Signed: Nanette Miranda MD at 16:57 EDT Tel , Service support [phone], CC: Mary Hilario MD; Олег Santos Neck Band Maker: Signed 20-Sep-2015 Bone Survey Comp(Axial AND Append) Result: Comments: See Note; NOTES: [facility] Imaging Services [address] [place] [id number] [place] [address] 4d Bone Survey Comp(Axial AND Append) MR#: [id number] Acct: [id number] Name: LISETTE BROWN Rep #: [id number] : 1950 F 65 From: Germán Ashford MD PCP: Jewell Coffman DO Status: REG CLI Study: Bone Survey Comp(Axial AND Append) Date of Exam: 09/20/15 Exam# [id number]: Mateusz Pham DO STUDY: X-RAY [...] MD at 16:50 EDT , Service support [phone], RAD/Bone Survey Comp(Axial AND Append) IMPRESSION: Degenerat anahy changes. No definite focal destructive/lytic lesions. Electronically Signed: Germán Ashford MD at 16:50 EDT , Service support [phone], CC: Jewell Coffman DO; Mateusz Pham D.O. Neck Band Maker: Signed 20-Sep-2015 Spleen Result: Comments: See Note; NOTES: [facility] Imaging Services [address] [place] [address] Verdana 4d Spleen MR#: [id number] Acct: [id number] Name: TARAFRANKLINYrnLISETTE M Re p #: [id number] : 1950 F 65 From: Riccardo Vazquez MD PCP: Jewell Coffman DO Status: REG CLI Study: Spleen Date of Exam: 09/20/15 Exam# [id number] Ordering Dr: Mateusz Pham DO STUDY: A [...] Vazquez MD at 14: 09 EDT Tel [phone], Service support [phone], CC: Jewell Coffman DO; Mateusz Pham D.O. Neck Band Maker: Signed 09-Sep-2015 EKG (13392) Comments: ekg showed normal sinus rhythym, normal axis, no acute st/t wave changes Result: [MEASUREMENTS ANALYSIS] Date of Test: 09/09/2015 12:22:24; Heart Rate: 65; CT Interval: 168; QRS: 82; QT Interval: 392; Corrected QT Interval (QTc): 400; P Wave [place]: 36; QRS Wave [place]: 24; T Wave [place]: 22; Blood Pressure: 102/62 [ECG DIAGNOSTIC STATEMENTS] Date of Test: 09/09/2015 12:22:24; Summary: Sinus Rhythm WITHIN NORMAL LIMITS 08-Feb-2015 Operative Report Result: Comments: See Note; NOTES: [facility] Medical Records Department [address] [place] [address] Operative Report MR#: [id number] Acct: [id number] Name: DINORA BROWN Rep #: [id number] : 1950 64 From: Jan Yoder MD PCP: Jewell Coffman DO Status: REG CLI DATE OF SERVICE: [...] Siobhan Evans C: Jewell Coffman DO T: [facility] JOB: [id number] 02/08/15 1434 <Electronically signed by Jan Yoder MD> Date ___ Jan Yoder MD Cosigner Signature (If Indicated): Date CC: Jewell Coffman DO; Jan Guzmanleo Date Dictate d: 02/08/15812 Date Transcribed: 02/08/15812 Neck Band Maker: Signed 17-Nov-2014 Garett Carcamo Digital AND CAD Result: Comments: See Note; NOTES: [facility] Imaging Services [address] [place] [address] Breast Imaging Report MR#: [id number] Acct: [id number] Name: LISETTE BROWN Rep #: [id number] : 1950 F 64 From: Riccardo Vazquez MD PCP: Jewell Coffman DO Status: REG CLI Study: Garett Carcamo Digital AND CAD Date of Exam: 11/17/14 Exam# [id number] Ordering Dr: Mary Hilario MD MAMMOGRAPHY - [...] Riccardo Vazquez MD at 14:50 EDT Tel [phone], Service support [phone], CC: Jewell Coffman DO; Mary Hilario MD Neck Band Maker: Signed 05-Jan-2014 PT Discharge Summary Result: Comments: See Note; NOTES: [facility] Physical Therapy [facility] [address] [place], [place] [address] Fax REHABILITATION SERVICES DISCHARGE SUMMARY MR#: [id number] Acct: [id number] Name: LISETTE BROWN Rep #: [id number] : 1950 63 From: Iesha Starr Referring Dr.: Concha Ford Status: PRE RCR Eval Date: [...] she was up and down in the garden th e last couple of days prior to [...] Sincerely, Iesha Starr, PT T: NTS JOB: [id number] <Electronicall y signed by Iesha Starr > 01/05/14 1351 CC: Signed 16-Nov-2013 Garett Scrn Digital & CAD Result: Comments: See Note; NOTES: [facility] Imaging Services [address] [place] [address] Breast Imaging Report MR#: [id number] Acct: [id number] Name: LISETTE BROWN Rep # : [id number] : 1950 F 63 From: Riccardo Vazquez MD PCP: Jewell Coffman DO Status: REG CLI Exam# [id number] Ordering Dr: Mary Hilario MD MAMMOGRAPHY - [...] will [facility] the [facility] 30 days. Approximately 10% of breast cancers are not detected by mammography. A normal mammogram should not delay biopsy of a clinically suspicious abnormality. Electronically S igned: Riccardo Vazquez MD at 14:47 EDT Tel [phone], Service support [phone], CC: Jewell Coffman DO; Mary Hilario MD Neck Band Maker: Signed 14-Aug-2013 Inital Evaluation - PT Result: Comments: See Note; NOTES: [facility] [address] [place] [address]. [address] [place] [address] Fax REHABILITATION SERVICES INITIAL EVALUATION MR#: [id number] Acct: [id number] Name: LISETTE BROWN Rep #: [id number] : 1950 62 From: Iesha Starr Referring DrJuan: Concha Ford Status: DIS RCR Insurance: ESTEFANI Tan Date: DATE OF SERVICE: 07/21/2013 REFERRING PHYSICIAN: [...] a diagnosis of hemiarthrosis of the pelvis. CT OBLEMS: 1. Increased pain. 2. Decreased hip strength. GOALS: 1. Independent with home exercise program. 2. Decrease pain with qkk-bd-jeixl to 0/10. 3. Increase left hip strength [...] needed. Iesha Starr, PT T: NTS JOB: [id number] <Electronically signed by Iesha Starr > 0 08/14/13 1426 CC: Signed For Medicare only, by signing this I certify the plan of care. Physicians Signature Date 07-Jul-2013 Hip min 2 Views Result: Comments: See Note; NOTES: [facility] Imaging Services [address] [place] [address] Radiology Report MR#: [id number] Acct: [id number] Name: LISETTE BROWN Rep #: [id number] : 1950 F 62 From: Nakul Hernandez DO PCP: Jewell Coffman DO Status: REG CLI Study: Hip min 2 Views Date of Exam: 07/07/13 Exam# [id number] Ordering Dr: Concha Ford STUDY: X-RAY - [...] D.O. at 21:51 EDT , Service support [phone], RAD/Hip min 2 Views IMPRES LUCIA: Minimal degenerative changes of the left hip. Electronically Signed: Nakul Hernandez D.O. at 21:51 EDT , Service support [phone], CC: Lizz Ford; Jewlel Coffman DO Neck Band Maker: Signed Family History Unknown Family Member Name [...] smoker Vital Signs Date Test Result Details :31 Temperature 98.2 f Comments: Method: Temporal [...] kg/m2 Body Surface Area Calculated 1.62 m2 97-Tfn-930315:43 Temperature 98.7 f Comments: Method: Temporal Pulse [...] Surface Area Calculated 1.49 m2 :09 Comments: [facility] and had a glaucoma test donehearing [...] 0.00 cm Results Date Description Value Details :19 HgA1C , Office (64312) HgA1C , Office 5.5 % (Normal) Range: 4.6 - 7.1 :19 Blood Glucose , Office (38153) Blood Glucose , Office 141 (Normal) :15 CBC W/Diff, Automated Comments: [facility] [address] [place], [place], [id number] Absolute Lymph 2.76 {X10_3/ul} (Normal) Range: 0.83-4.51 [...] 4.2-5.4 WBC 7.5 K/mm3 (Normal) Range: 4.4-11.0 10-Lgk-11326:15 Comprehensive Metabolic Profil Comments: [facility] [address] [place], [place], [id number] GAP 8 (Normal) Range: 5-15 CO2 25.0 [...] A.D.A. criteria.Please note revised GLUCOSE reference range drnwhyqxe57/02/2018. 48-Lmt-02793:15 Lipid Profile Comments: [facility] [address] [place], [address] VLDL 34 mg/dL (Normal) Range: [...] 200-240 mg/dL Borderline >240 mg/dL High Risk 13-Dxr-26827:15 Microalb:Creat Ratio,Random UR Comments: PT DIANAO TOOK CONTAINER HOME WILL [facility] [address] [place], [address] MALB:CREAT 6.2 {mg/g_CRE} (Normal) MICROALBUMIN,UR 9.9 mg/L (Normal) UR CREAT 159.00 mg/dL (Normal) 97-Xwq-15897:15 Thyroid Stim Hormone (TSH) Comments: [facility] [address] [place], [address] TSH 1.77 {uIU/mL} (Normal) Range: 0.358-3.74 18-Jyx-93394:15 Urinalysis, Complete Comments: PT UTO TOOK CONTAINER HOME WILL RETURN TODAYHow was Urine Obtained? [facility] [address] [place], [id number] MUCUS, URINE 0 SEEN {/hpf} (Normal) BACTERIA [...] CLARITY Sl. Cloudy (Normal) COLOR Yellow (Normal) 99-Ght-69521:15 Vitamin D,25 Hydroxy Comments: [facility] [address] [place], [id number] Vitamin D 25-OH 18.3 ng/mL (Abnormal) Range: 29.95-100.01 Comments: Vitamin D 25(OH) Status Range Deficiency <20 ng/mL (50nmol/L) Insuffciency 20 - 30 ng/mL (50 - 75 nmol/L) Sufficiency 30 - 100 ng/mL (75 - 250 nmol/L) Toxicity >100 ng/mL (>250 nmol/L) 23-Cmu-207948:56 Soluble Transferrin Comments: PATIENT NOT FASTINGPERFORMED BY: [facility] Scbpii1896 [facility] [id number] BY: [facility] [address] [id number] Receptor (93513) Soluble Transferrin Receptor 27.3 nmol/L (Normal) Range: 12.2-27.3 36-Fpl-803899:56 SPEP (67582) Comments: PATIENT NOT FASTINGPERFORMED BY: [place] 1230270 [facility] [id number] BY: [address] [id number] PDF . (Normal) Please note: SPRCS (Normal) Comments: Protein electrophoresis scan will follow via computer, mail, orcourier delivery. A/G Ratio 0.9 (Normal) Range: 0.7-1.7 Globulin, Total 4.0 g/dL (Abnormal) Range: 2.2-3.9 M-Isaias Not Observed g/dL (Normal) Gamma Globulin 1.8 g/dL (Normal) Range: 0.4-1.8 Beta Globulin 1.2 g/dL (Normal) Range: 0.7-1.3 Fiqec-3-Sicbfrhf 0.7 g/dL (Normal) Range: 0.4-1.0 Zpkmm-2-Xfgejzvu 0.3 g/dL (Normal) Range: 0.0-0.4 Albumin 3.5 g/dL (Normal) Range: 2.9-4.4 Protein, Total 7.5 g/dL (Normal) Range: 6.0-8.5 :56 [facility] (97548) Comments: PATIENT NOT FASTINGPERFORMED BY: Javelin Wyveoh2043 [facility] [id number] BY: Javelin[address] [id number] PDF . (Normal) Please note: SPRCS (Normal) Comments: Protein electrophoresis scan will follow via computer, mail, orcourier delivery. M-Isaias, % Not Observed % (Normal) Gamma Globulin, U 13.3 % (Normal) Beta Globulin, U 34.4 % (Normal) Efwxa-2-Toucheka, U 10.6 % (Normal) Fpexd-4-Hushrgil, U 3.5 % (Normal) Albumin, U 38.2 % (Normal) Protein,Total,Urine 9.2 mg/dL (Normal) :56 BUZZ TEST, DIRECT Comments: PATIENT NOT FASTINGPERFORMED BY: [place] 1230270 [facility] [id number] BY: [address] [id number] (85281) Buzz', Direct Negative (Normal) 71-Bmx-130407:56 FOLIC ACID SERUM (75940) Comments: PATIENT NOT FASTINGPERFORMED BY: [place] 3343570 Multani RoadDublin [place] [id number] BY: [address] [id number] Folate (Folic Acid), Serum 13.1 ng/mL (Normal) Comments: A serum folate concentration of less than 3.1 ng/mL isconsidered to represent clinical deficiency. 29-Fuj-743050:56 Methymalonic Acid, Serum Comments: PATIENT NOT FASTINGPERFORMED BY: [place] 3343570 Multani Roadblin [place] [id number] BY: [address] [id number] (04068) Disclaimer: SPRCS (Normal) Comments: This test was developed and its performance characteristicsdetermined by [employer]. It has not been cleared or approvedby the Food and Drug Administration. Methylmalonic Acid, Serum 227 nmol/L (Normal) Range: 0-378 55-Tom-277858:56 VITAMIN B-12 Comments: PATIENT NOT FASTINGPERFORMED BY: [place] 3343570 [facility] [place] [id number] BY: [address] [id number] (CYANOCOBALAMIN) (11441) Vitamin B12 663 pg/mL (Normal) Range: 232-1245 73-Hxj-011726:56 RETICULOCYTE COUNT MANUL Comments: PATIENT NOT FASTINGPERFORMED BY: [place] 3343570 [facility] [id number] BY: [address] [id number] (89872) Reticulocyte Count 1.8 % (Normal) Range: 0.6-2.6 97-Sbq-628762:56 LDH (LD) (LACTATE Comments: PATIENT NOT FASTINGPERFORMED BY: [place] 3343570 [facility] [id number] BY: [address] [id number] DEHYDROGENASE) (33394) LDH 218 [iU]/L (Normal) Range: 119-226 89-Vxx-578359:56 IRON BINDING CAPACITY Comments: PATIENT NOT FASTINGPERFORMED BY: [address] [id number] BY: [address] [id number] (TIBC) (43737) Iron Saturation 17 % (Normal) Range: 15-55 Iron 69 ug/dL (Normal) Range: 27-139 UIBC 338 ug/dL (Normal) Range: 118-369 Iron Bind.Cap.(TIBC) 407 ug/dL (Normal) Range: 250-450 49-Glx-968704:56 FERRITIN (07595) Comments: PATIENT NOT FASTINGPERFORMED BY: [place] 3343570 [facility] [id number] BY: [address] [id number] Ferritin, Serum 21 ng/mL (Normal) Range: 15-150 12-Olq-794348:56 HAPTOGLOBIN (97269) Comments: PATIENT NOT FASTINGPERFORMED BY: [place] 3343570 [facility] [id number] BY: [address] [id number] Haptoglobin 89 mg/dL (Normal) Range: 34-200 25-Ueu-737249:56 CBC, PLATELETS & AUT DIFF Comments: PATIENT NOT FASTINGPERFORMED BY: [place] 3343570 [facility] [id number] BY: [address] [id number] (15651) Immature Grans (Abs) 0.0 {x10E3/uL} (Normal) Range: [...] (Normal) Range: 3.4-10.8 :07 HgA1C , Office (82486) HgA1C , Office 5.6 % (Normal) Range: 4.6 - 7.1 :07 Blood Glucose , Office (35626) Blood Glucose , Office 170 (Normal) :36 CBC W/Diff, Automated Comments: [facility] [address] [place], [address] Absolute Lymph 3.43 {X10_3/ul} (Normal) Range: 0.83-4.51 [...] 4.2-5.4 WBC 9.7 K/mm3 (Normal) Range: 4.4-11.0 :36 Comprehensive Metabolic Profil Comments: PLEASE ADD PREALBUMIN TO LIPID,TSH,CMP [address] Wyurljlznq8376 [facility] [place], [address] GAP 10 (Normal) Range: 5-15 CO2 24.0 [...] Profile Comments: PLEASE ADD PREALBUMIN TO LIPID,TSH,[address] X[address] [place], [place], [address](325) VLDL 21 mg/dL (Normal) Range: 5-40 LDL [...] Prealbumin Comments: PLEASE ADD PREALBUMIN TO LIPID,TSH,[address]jt[address]fu[address] [place], [place], [address] PREALBUMIN 30.5 mg/dL (Normal) Range: 20.0-40.0 :36 Thyroid Stim Hormone (TSH) Comments: PLEASE ADD PREALBUMIN TO LIPID,TSH,CMP [facility]98[facility]ezfenpOhio[facility] [address]kfzqag[address] [place], [address] TSH 2.39 {uIU/mL} Range: 0.358-3.74 (Normal) :3 ASPIRATION (SLIDES ONLY) See Note (Normal) Comments: [facility] [address] [place], [address] 0 Comments: Patient: LISETTE BROWN : 1950 (66/F) Acct Num: [id number] Phys: Mk SALVADOR,George Unit Num: [id number] Loc: LABSPEC Specimen: [id number] Received: 09/20/161606 Spec Ty pe: ASPIRATION TISSUES TISSUES: ADDENDUM Addendum Number 1 This addendum is added to incorporate an outside pathology consultation report. The case was examined at [facility] (#[id number]) and the following diagnosis was rendered. Right [...] noted. Please make reference to previous specimen ([id number]) right cervical lymph node,FNA with diagnosis of [...] for staining. / RY:cc 09/21/16 TC:0 CPT: 49957 CYTOLOGY STUDY Slides are reviewed. DIAGNOSIS CYTOLOGY Right thyroid nodule, ultrasound-guided FNA (smears): Malignant cells present derived from papillary thyroid carcinoma. SJ:lars 09/24/16 HEADER OPERATION: Ultrasound guided righ t thyroid FNA PRE-OP DIAGNOSIS: Right thyroid nodule TISSUE SUBMITTED: Right thyroid (12 slides) Signed Mariano Contreras 09/24/16 <signature on file> 9-Cui-104305:50 CBC W/Diff, Auto - EPLAB Comments: Order Date: 03/29/16Order Info: [id number] - *CBC w/Diff - oncology ONLYAt [facility] Outpatient [facility] Medical Oncologypatients receive CBC w/auto Differential ONLY. Physicianwill place an order fo Only r a manual differential or Pathologistreview at his discretion. [facility]. [address] [place] [address] [place] [address] DIRECTOR OF QUALITY CONTROL: JASBIR REINA DO PH:[phone] County Medical Center [address]vfoxiyt[address] [place], [address] Absolute Lymph 1.92 {X10_3/uL} (Normal) Range: 0.83-4.51 [...] 4.2-5.4 WBC 8.9 K/mm3 (Normal) Range: 4.4-11.0 0-Dlr-339457:50 Comprehensive Metabolic Profil Comments: Order Date: 03/29/16Order Info: [id number] - *CMP Complete Metabolic PanelOrder Info: [id number] - *Uric Acid BloodOrder Info: 2532-0 - *LDH -LDH (Lactate Dehydrogenase)Serial Specimen #1, #2 or #3? [facility] Rxwlldqfdl6377 [place], [place], [address] GAP 5 (Normal) Range: 5-15 CO2 27.0 [...] CHI + Prot Elec, Serum 1495Order Info: 66736-1 - *KAPLAMBDA - Mcalester Lamda Light ChainsIs Patient Fasting? [facility] (refer to report for specific site)refe r to report for address and phone number NOTE: Comment (Normal) Comments: Protein electrophoresis scan will follow via computer,mail, or rug hooker hand delivery. CHI RESULT,S Comment (Normal) Comments: No monoclonality detected. A/G RATIO 0.9 (Normal) Range: 0.7-1.7 GLOBULIN, TOTAL 4.2 g/dL (Abnormal) Range: 2.2-3.9 M-SPIKE g/dL (Normal) Comments: Not Observed GAMMA GLOBULIN 1.9 g/dL (Abnormal) Range: 0.4-1.8 BETA GLOBULIN 1.2 g/dL (Normal) Range: 0.7-1.3 TNMQG-9-YNZW 0.9 g/dL (Normal) Range: 0.4-1.0 OQBNE-9-IVGC 0.3 g/dL (Normal) Range: 0.0-0.4 ALBUMIN 3.7 g/dL (Normal) Range: 2.9-4.4 IMMUNOGL M 511 mg/dL (Abnormal) Range: 26-217 IMMUNO A 252 mg/dL (Normal) Range: 87-352 IMMUNO G 1574 mg/dL (Normal) Range: 700-1600 PROTEIN,TOTAL 7.9 g/dL (Normal) Range: 6.0-8.5 :50 Mcalester Lambda Light Chains Comments: Order Date: 03/29/16Order Info: [id number] - *IMEL CHI + Prot Elec, Serum 1495Order Info: [id number] - *KAPLAMBDA - Mcalester Lamda Light ChainsIs Patient Fasting? [facility] (refer to report for specific site)refe r to report for address and phone number KAPPA/LAMBDA % 1.06 (Normal) Range: 0.26-1.65 Comments: Performed at: - [facility] [address] [id number] Director: Jan Wilcox PhD, Phone: [phone] FR LAMBDA LT CH 31.7 mg/L (Abnormal) Range: 5.7-26.3 Comments: Please note reference interval change FR KAPPA LT CHN 33.6 mg/L (Abnormal) Range: 3.3-19.4 Comments: Please note reference interval change 5-Pel-468706:50 LDH 181 U/L (Normal) Comments: Order Date: 03/29/16Order Info: [id number] - *CMP Complete Metabolic PanelOrder Info: 3084-1 - *Uric Acid BloodOrder Info: 2532-0 - *LDH -LDH (Lactate Dehydrogenase)Serial Specimen #1, #2 or #3? [address] [place] [address] [place], [place], [address] Range: 84-246 9-Mrc-217349:50 Uric Acid Comments: Order Date: 03/29/16Order Info: [id number] - *CMP Complete Metabolic PanelOrder Info: 3084-1 - *Uric Acid BloodOrder Info: 2532-0 - *LDH -LDH (Lactate Dehydrogenase)Serial Specimen #1, #2 or #3? [address] [place] [address] [place], [place], [address] URIC 7.1 mg/dL Range: 2.6-6.0 (Abnormal) Comments: The drugs N-Acetylcysteine and Metamizole may falsely deressthis assay. ASPIRATION (SLIDES ONLY) See Note (Normal) Comments: [facility] [address] [place], [place], [address] 70:00 Comments: Patient: LISETTE BROWN : 1950 (66/F) Acct Num: [id number] Phys: Mk SALVADOR,George Unit Num: [id number] Loc: LABSPEC Specimen: [id number] Received: 09/12/161345 Spec Ty pe: ASPIRATION TISSUES TISSUES: ADDENDUM Addendum Number 1 This addendum is added to incorporate an outside pathology consultation report. The case was examined at [facility] (#[id number]) and the following diagnosis was rendered. Right cervical lymph nodes, fine needle aspiration: Positive for malignant cells. Metastatic carcinoma, consistent with miguel g primary. Please see complete above mentioned consultation report in EMR Addendum Signed Jasbir [facility] 10/05/16 <signature on fi le> COMMENT Immediate cytologic evaluation to determine adequacy is not applicable. Immunohistochemistry ([id number]) supports the above diagnosis. An excisional/incisional biopsy is recommen ded for further classification. Case has been reviewed in consultation with Dr. Contreras who concurs with the abovediagnosis. IDC:SJ CYTOLOGY GROSS Received are 12 smears labeled with the patient 's name and designated per the requisition as FNA right cervical lymph node. Submitted for staining. 09/12/16 TC:0 CPT: 35757 CYTOLOGY STUDY Slides are reviewed. DIAGNOSIS CYTOLOGY Rig ht cervical lymph nodes, fine needle aspiration (smears): Metastatic carcinoma. AM:lars 09/13/16 HEADER OPERATION: Ultrasound-guided fine needle aspiration right cervical lymph node PRE-OP DIAGNOSIS: Enlarged lymph nodes TISSUE SUBMITTED: FNA right cervical lymph nodes (12 slides) Signed Jasbir [facility] 09/14/16 <signature on file> IMMUNOHISTOCHEMISTRY See Note (Normal) Comments: [facility] [address] [place], [place], [address] 70:00 Comments: Patient: LISETTE BROWN : 1950 (66/F) Acct Num: [id number] Phys: Mk SALVADOR,George Unit Num: [id number] Loc: LABSPEC Specimen: [id number] Received: 09/13/16 - 1228 Spec T ype: IMMUNO TISSUES TISSUES: SPECIMEN INFORMATION: Tissue Source: FNA right cervical lymph nodes Clinical Info: Enlarged lymph nodes Specimen Number: [id number] CPT code: 16047, 80513 x3 METHODOLOGY: Deparaffinized sections of prefer/formalin-fixed tissue [...] developed and their performance characteristics determined by [facility]. They may not have been cleared [...] with the abovediagnosis. IDC: PHYSICIAN AND INSTITUTION [place] [address] Signed Jasbir [facility] 09/14/16 <signature on file> 8-Beq-177868:05 Systemic Lupus Profile A Comments: PATIENT NOT FASTINGPERFORMED BY: [facility] Odczfb7921 [facility] [id number] Anti-DNA (DS) Ab Qn 6 {IU/mL} (Normal) Range: 0-9 Comments: Negative <5 Equivocal 5 - 9 Positive >9 Sjogren's Anti-SS-B <0.2 {AI} (Normal) Range: 0.0-0.9 Sjogren's Anti-SS-A 1.2 {AI} Range: 0.0-0.9 (Abnormal) Antichromatin Antibodies <0.2 {AI} (Normal) Range: 0.0-0.9 RA Latex Turbid. <10.0 {IU/mL} Range: 0.0-13.9 (Normal) Gibson Antibodies <0.2 {AI} (Normal) Range: 0.0-0.9 SEISMOGRAPH HELPER Antibodies <0.2 {AI} (Normal) Range: 0.0-0.9 Written Authorization WAR (Normal) Comments: PATIENT NOT FASTINGPERFORMED BY: [facility]6370 [facility] [id number] :05 Comments: Written Authorization Received.Authorization received from HAFSA RIOJAS 04-02-7709Zaqgrg by Elaina Louis 1-Kxi-351501:05 CMV ANTIBODY (68911) Comments: PATIENT NOT FASTINGPERFORMED BY: [facility]6370 [facility] [id number] Cytomegalovirus (CMV) Ab, IgG <0.60 U/mL (Normal) Range: 0.00-0.59 Comments: Negative <0.60 Equivocal 0.60 - 0.69 Positive >0.69 :05 CMV IGM ANTBDY (77023) Comments: PATIENT NOT FASTINGPERFORMED BY: [facility]6370 [facility] [id number] Cytomegalovirus (CMV) Ab, IgM <30.0 AU/mL (Normal) Range: 0.0-29.9 Comments: Negative <30.0 Equivocal 30.0 - 34.9 Positive >34.9 A positive result is generally indicative of acute infection, reactivation or persistent IgM production. :05 EB ANTIBODY VIRAL CAPSID Comments: PATIENT NOT FASTINGPERFORMED BY: [facility]6370 [facility] [id number] (61409) X2 Interpretation: SPRCS (Normal) Comments: EBV Interpretation [...] <36.0 Equivocal 36.0 - 43.9 Positive >43.9 9-Cio-667616:05 LDH (LD) (LACTATE DEHYDROGENASE) Comments: PATIENT NOT FASTINGPERFORMED BY: [employer] [facility] [id number] (15058) LDH 195 [iU]/L (Normal) Range: 119-226 4-Pzt-006650:05 JOSE ALEJANDRO (ANTINUCLEAR ANTIBODY) Comments: PATIENT NOT FASTINGPERFORMED BY: JavelinUNM Psychiatric CenterSbhdlb6492 [facility] [id number] (89509) JOSE ALEJANDRO Direct Positive (Abnormal) 7-Gyp-355011:05 C-REACTIVE PROTEIN (17105) Comments: PATIENT NOT FASTINGPERFORMED BY: [employer] [facility] [id number] C-Reactive Protein, Quant 8.8 mg/L (Abnormal) Range: 0.0-4.9 1-Uss-385611:05 SED RATE ERYTHROCYTE (40314) Comments: PATIENT NOT FASTINGPERFORMED BY: [facility]inThe Valley HospitalJqykvw1922 [facility] [id number] Sedimentation Rate-Westergren 20 mm/h (Normal) Range: 0-40 1-Rtt-249861:05 METABOLIC PANEL, COMPREHENSIVE Comments: PATIENT NOT FASTINGPERFORMED BY: [employer] [facility] [id number] (73600) ALT (SGPT) 9 [iU]/L (Normal) Range: 0-32 [...] (Abnormal) Range: 65-99 :26 HgA1C , Office (75954) HgA1C , Office 5.4 % (Normal) Range: 4.6 - 7.1 :26 Blood Glucose , Office (47199) Blood Glucose , Office 134 (Normal) :28 CBC W/Diff, Automated Comments: [facility] [address] [place], [place], [address] Absolute Lymph 2.37 {X10_3/ul} (Normal) Range: 0.83-4.51 [...] 4.2-5.4 WBC 9.5 K/mm3 (Normal) Range: 4.4-11.0 37-Eci-96618:28 Comprehensive Metabolic Profil Comments: [facility] [address] [place], [address] GAP 8 (Normal) Range: 5-15 CO2 26.0 [...] 7-18 GLU 96 mg/dL (Normal) Range: 70-110 54-Mrg-14555:28 Lipid Profile Comments: [facility] [address] [place], [address] VLDL 26 mg/dL (Normal) Range: [...] 200-240 mg/dL Borderline >240 mg/dL High Risk 63-Ucu-32250:28 Microalb:Creat Ratio,Random UR Comments: [facility] [address] [place], [address] MALB:CREAT 8.4 {mg/g_CRE} (Normal) MICROALBUMIN,UR 12.1 mg/L (Normal) UR CREAT 144.00 mg/dL (Normal) 05-Foc-32662:28 Thyroid Stim Hormone (TSH) Comments: [facility] [address] [place], [address] TSH 1.74 {uIU/mL} (Normal) Range: 0.358-3.74 :28 Vitamin D,25 Hydroxy Comments: [facility] [address] [place], [address] Vitamin D 25-OH 45.5 ng/mL (Normal) Comments: Vitamin D 25(OH) Status Range Deficiency <20 ng/mL (50nmol/L) Insuffciency 20 - 30 ng/mL (50 - 75 nmol/L) Sufficiency 30 - 100 ng/mL (75 - 250 nmol/L) Toxicity >100 ng/mL (>250 nmol/L) :05 HgA1C , Office (88299) HgA1C , Office 5.6 % (Normal) Range: 4.6 - 7.1 :05 Blood Glucose , Office (58723) Blood Glucose , Office 134 (Normal) :42 CBC W/Diff, Automated Comments: [facility] [address] [place], [address] BASOPHIL 2 % (Abnormal) Range: 0-1 EOS [...] Range: 4.4-11.0 :42 Comprehensive Metabolic Profil Comments: [facility] [address] [place], [place], [address] GAP 9 (Normal) Range: 5-15 CO2 26.0 [...] (Normal) Range: 70-110 :42 Lipid Profile Comments: [facility] [address] [place], [place], [address] VLDL 28 mg/dL (Normal) Range: 5-40 LDL [...] High Risk :42 Microalb:Creat Ratio,Random UR Comments: [facility] [address] [place], [place], [address] MALB:CREAT 5.3 {mg/g_CRE} (Normal) MICROALBUMIN,UR 7.8 mg/L (Normal) UR CREAT 146.00 mg/dL (Normal) :42 Vitamin B12 533 pg/mL (Normal) Comments: [facility] [address] [place], [address] Range: 211-911 :42 Vitamin D,25 Hydroxy Comments: [facility] [address] [place], [address] Vitamin D 25-OH 29.4 ng/mL (Normal) Comments: Vitamin D 25(OH) Status Range Deficiency <20 ng/mL (50nmol/L) Insuffciency 20 - 30 ng/mL (50 - 75 nmol/L) Sufficiency 30 - 100 ng/mL (75 - 250 nmol/L) Toxicity >100 ng/mL (>250 nmol/L) 82-Xza-490788:21 CBC W/Diff, Auto - EPLAB Comments: At [facility] Outpatient [facility] Medical Oncologypatients receive CBC w/auto Differential ONLY. Physicianwill place an order for a manual differential or Pathologistreview at his discretion. [facility]. [address] [place] [address] [place] [address] DIRECTOR OF QUALITY CONTROL: JASBIR ERINA DO PH:[phone] Children'S Hospital [address] [place], [address] Absolute Lymph 2.05 {X10_3/uL} (Normal) Range: 0.83-4.51 [...] 4.2-5.4 WBC 8.7 K/mm3 (Normal) Range: 4.4-11.0 17-Upn-497703:19 Vvya-9-Xefsylqxctjbc, S Comments: Order Date: 04/20/16 Order #: [id number] (refer to report for specific site)refer to report for address and phone number B2 [id number] 2.3 mg/L (Normal) Range: 0.6-2.4 Comments: Performed at: [facility] [address] [id number] Director: Jan Wilcox PhD, Phone: [phone] 12-Lxk-076646:19 Comprehensive Metabolic Profil Comments: Order Date: 04/20/16OV Order #: [id number] Specimen #1, #2 or #3? 1 [id number] County Medical Center [address] [place], [place], [address] GAP 4 (Abnormal) Range: 5-15 CO2 26.0 [...] 7-18 GLU 96 mg/dL (Normal) Range: 70-110 89-Lpq-445746:19 Mcalester Lambda Light Chains Comments: Order Date: 04/20/16OV Order #: [id number] (refer to report for specific site)refer to report for address and phone number KAPPA/LAMBDA % 1.09 (Normal) Range: 0.26-1.65 Comments: Performed at: [address] [id number] Director: Jan Wilcox PhD, Phone: [phone] FR LAMBDA LT CH 23.60 mg/L (Normal) Range: 5.71-26.30 FR KAPPA LT CHN 25.70 mg/L (Abnormal) Range: 3.30-19.40 :19 LDH 185 U/L (Normal) Comments: Order Date: 04/20/16 Order #: [id number] Specimen #1, #2 or #3? 1 [id number] County Medical Center [address] [place], [place], [address] Range: 84-246 :19 Protein Electro.Ur-Random Comments: Order Date: 04/20/16 Order #: [id number] (refer to report for specific site)refer to report for address and phone number NOTE Comment (Normal) Comments: Protein electrophoresis scan will follow via computer,mail, or rug hooker hand delivery.Performed at: [address] [id number] Director: Jan Wilcox PhD, Phone: [phone] M-SPIKE,U % (Normal) Comments: Not Observed GAMMA GLOB,U 29.8 % (Normal) BETA GLOB,U 36.8 % (Normal) EZQFD-2-MOBB,U 12.1 % (Normal) BLEJO-4-UJNO,U 1.9 % (Normal) ALBUMIN,UR 19.5 % (Normal) PROTEIN,UR 13.7 mg/dL (Normal) :19 Protein Electroph, S Comments: Order Date: 04/20/16 Order #: [id number] (refer to report for specific site)refer to [...] electrophoresis scan will follow via computer,mail, or rug hooker hand delivery. A/G RATIO 0.8 (Normal) Range: 0.7-1.7 [...] (Normal) Range: 6.0-8.5 :44 HgA1C , Office (32751) Comments: Do not charge - taken by mistake!!!!! HgA1C , Office 5.8 % (Normal) Range: 4.6 - 7.1 :47 CBC W/Diff, Automated Comments: [facility] [address] [place], [place], [address] ; non-emergent till apt Absolute Lymph 2.38 [...] Range: 4.4-11.0 :47 Comprehensive Metabolic Profil Comments: [facility] [address] [place], [place], [address] ; non-emergent till apt GAP 7 (Normal) [...] (Normal) Range: 70-110 :47 Hemoglobin A1c Comments: [facility] [address] [place], [place], [address] HGB A1C 6.1 % (Normal) Range: 4.2-6.3 :47 Lipid Profile Comments: [facility] [address] [place], [place], [address] VLDL 28 mg/dL (Normal) Range: 5-40 LDL [...] High Risk :47 Microalb:Creat Ratio,Random UR Comments: [facility] [address] [place], [address] MALB:CREAT 6.6 {mg/g_CRE} (Normal) MICROALBUMIN,UR 6.4 mg/L (Normal) UR CREAT 96.50 mg/dL (Normal) 0-Wcp-439238:31 CBC W/Diff, Automated Comments: PERF,SMEAR PER DOCTORS ORDERWAshtabula County Medical Center [address] [place], [address] PATH REV Reviewed (Normal) Comments: [...] 4.2-5.4 WBC 7.9 K/mm3 (Normal) Range: 4.4-11.0 2-Vqk-353077:31 Miscellaneous Lab Procedure Comments: Test(s) Ordered: FLOW CYTOMETRY [id number] 1 HEP./1 [facility] [id number] [place], [address] [facility] [place] Comments: TEST RESULT UNITS REFERENCE INTERVALComp panel: [...] test wasdeveloped and its performance characteristics determinedby [email or web address]. It has not been cleared or approved by the U.S.Food and Drug Administratio n. The FDA has determined thatsuch clearance or approval is not necessary. This test isused for clinical purposes. It should not be regarded asinvestigational or for research. TESTING PERFORMED AT [facility]. ORIGINAL REPORT ON FILE IN LAB CONTAINS ADDITIONAL TEST SITE INFORMATION. :31 Uric Acid Comments: [facility] [id number] [place], [address] URIC 7.3 mg/dL (Abnormal) Range: 2.6-6.0 Comments: The drugs N-Acetylcysteine and Metamizole may falsely deressthis assay. :52 Izxo-0-Gkjhdefywplyn, S Comments: [facility] (refer to report for specific site)refer to report for address and phone number B2 [id number] 1.9 mg/L (Normal) Range: 0.6-2.4 :52 Comprehensive Metabolic Profil Comments: Serial Specimen #1, #2 or #3? 1[facility] [address] [place], [place], [id number] GAP 7 (Normal) Range: 5-15 CO2 26.0 [...] electrophoresis scan will follow via computer,mail, or rug hooker hand delivery. CHI RESULT,S Comment (Normal) Comments: No [...] - 1.3 >6 months 0.7 - 1.3 IHOKT-0-VDXR 0.9 g/dL (Normal) Range: 0.4-1.2 Comments: Effective September 26, 2015 the reference interval for Exdxd-0-Syhqstlr will be changing to: 0 - 30 days Not Estab. >30 days 0.4 - 1.0 VBVON-1-BFTE 0.3 g/dL (Normal) Range: 0.1-0.4 Comments: Effective September 26, 2015 the reference interval for Luidj-3-Dxkummcy will be changing to: 0 - 30 [...] PROTEIN,TOTAL 7.5 g/dL (Normal) Range: 6.0-8.5 :52 Mcalester Lambda Light Chains Comments: Is Patient Fasting? [facility] (refer to report for specific site)refer to report for address and phone number KAPPA/LAMBDA % 0.95 (Normal) Range: 0.26-1.65 Comments: Performed at: [facility] Lab[address] [id number] Director: Jan Wilcox PhD, Phone: [phone] FR LAMBDA LT CH 22.66 mg/L (Normal) Range: 5.71-26.30 FR KAPPA LT CHN 21.46 mg/L (Abnormal) Range: 3.30-19.40 :52 LDH 178 U/L (Normal) Comments: Serial Specimen #1, #2 or #3? 1[facility] [address] [place], [place], [id number] Range: 84-246 :52 Protein Electro.Ur-Random Comments: Is Patient Fasting? [facility] (refer to report for specific site)refer to report for address and phone number NOTE Comment (Normal) Comments: Protein electrophoresis scan will follow via computer,mail, or rug hooker hand delivery. M-SPIKE,U (Normal) Comments: Not Observed GAMMA GLOB,U 10.5 % (Normal) BETA GLOB,U 31.2 % (Normal) IYAZD-3-FQGZ,U 18.4 % (Normal) DLJHT-1-EVEV,U 10.9 % (Normal) ALBUMIN,UR 28.9 % (Normal) PROTEIN,UR 12.1 mg/dL (Normal) :49 CBC W/Diff, Auto - EPLAB Comments: At [facility] Medical Oncologypatients receive CBC w/auto Differential ONLY. Physicianwill place an order for a manual differential or Pathologistreview at his discretion. [facility]. [address] [place] [address] [address] DIRECTOR OF QUALITY CONTROL: JASBIR REINA DO PH:[phone] [facility] [address] [place], [address] Absolute Lymph 2.75 {X10_3/uL} (Normal) [...] Range: 4.4-11.0 :37 CBC W/Diff, Automated Comments: [facility] [address] [place], [address] Absolute Lymph 2.98 {X10_3/ul} (Normal) [...] Range: 4.4-11.0 :37 Comprehensive Metabolic Profil Comments: [facility] [address] [place], [place], [id number] ; will review at 09/08 GAP 8 [...] (Normal) Range: 70-110 :37 Hemoglobin A1c Comments: [facility] [address] [place], [place], [id number] HGB A1C 5.9 % (Normal) Range: 4.2-6.3 :37 Immunofixation Urine Comments: [facility] (refer to report for specific site)refer to report for address and phone number CHI Urine Comment (Normal) Comments: No monoclonality detected.Performed at: [facility] [address] [id number] Director: Jan Wilcox PhD, Phone: [phone] Immunofixation, Serum Comments: [facility] (refer to report for specific site)refer to report for address and phone number CHI RESULT,S Comment (Normal) Comments: No monoclonality detected. IMMUNOGL M 583 mg/dL (Abnormal) Range: 26-217 IMMUNO A 218 mg/dL (Normal) Range: 87-352 IMMUNO G 1451 mg/dL (Normal) Range: 700-1600 :37 Mcalester Lambda Light Chains Comments: [facility] (refer to report for specific site)refer to report for address and phone number; ok til apt KAPPA/LAMBDA % 0.92 (Normal) Range: 0.26-1.65 FR LAMBDA LT CH 24.29 mg/L (Normal) Range: 5.71-26.30 FR KAPPA LT CHN 22.34 mg/L (Abnormal) Range: 3.30-19.40 :37 Lipid Profile Comments: [facility] [address] [place], [place], [address] VLDL 33 mg/dL (Normal) Range: 5-40 LDL [...] High Risk :27 CBC W/Diff, Automated Comments: [facility] [address] [place], [place], [address] Absolute Lymph 2.70 {X10_3/ul} (Normal) Range: 0.83-4.51 [...] 4.2-5.4 WBC 8.2 K/mm3 (Normal) Range: 4.4-11.0 17-Pqc-92716:27 Comprehensive Metabolic Profil Comments: [facility] [address] [place], [place], [address] GAP 5 (Normal) Range: 5-15 CO2 27.0 [...] 7-18 GLU 97 mg/dL (Normal) Range: 70-110 :27 Hemoglobin A1c Comments: [facility] [address] [place], [id number] HGB A1C 5.8 % (Normal) Range: 4.2-6.3 :27 Lipid Profile Comments: [facility] [address] [place], [address] VLDL 35 mg/dL (Normal) Range: 5-40 [...] High Risk :27 Microalb:Creat Ratio,Random UR Comments: [facility] [address] [place], [address] MALB:CREAT 5.1 {mg/g_CRE} (Normal) MICROALBUMIN,UR 5.3 mg/L (Normal) UR CREAT 103.00 mg/dL (Normal) :27 Uric Acid Comments: [facility] [address] [place], [address] URIC 7.7 mg/dL (Abnormal) Range: 2.6-6.0 Comments: ADDENDA: non-emergent till apt 93-Uve-90023:00 COLON BIOPSY (CHOOSE See Note (Normal) Comments: [facility] [address] [place], [address] ; ordered by Dr. Yoder SITE) Comments: Patient: LISETTE BROWN : 1950 (64/F) Acct Num: [id number] Phys: Jan Yoder Unit Num: [id number] Loc: EN Specimen: [id number] Received: 02/08/15 - 30 Spec Type: COL ON BX TISSUES TISSUES: GROSS DESCRIPTION Received is one container labeled with the patient name and designated sigmoid colon polyp biopsy. The specimen consists of multiple irregu lar fragments of light [place] soft tissue that in aggregate measure 0.5 x 0.3 x 0.1 cm. The specimen is totally submitted in one cassette. / ANTONIA:stephanie 02/08/15 TC:1 CPT: 17195 HEADER OPERATION: [place] noscopy PRE-OP DIAGNOSIS: Screening TISSUE SUBMITTED: Sigmoid colon polyp, biopsy MICROSCOPIC DESCRIPTION Slides are reviewed. MICROSCOPIC DIAGNOSIS Sigmoid colon polyp, biopsy: Fr agments of hyperplastic polyp. ANTONIA:stephanie 02/09/15 Signed Mariano Contreras 02/09/15 <signature on file> 0-Eic-371949:54 JOSE ALEJANDRO (ANTINUCLEAR ANTIBODY) Comments: PATIENT NOT FASTINGPERFORMED BY: [id number] [facility] [id number] BY: Javelin[address] [id number] ([address]) JOSE ALEJANDRO Direct Negative (Normal) 1-Fyo-178147:54 CCP ANTIBODY (95982) Comments: PATIENT NOT FASTINGPERFORMED BY: NERI6370 [facility] [id number] BY: [address] [id number] CCP Antibodies IgG/IgA 4 {units} (Normal) Range: 0-19 Comments: Negative <20 Weak positive 20 - 39 Moderate positive 40 - 59 Strong positive >59 5-Tql-341568:54 RHEUMATOID FACTOR-QUANT Comments: PATIENT NOT FASTINGPERFORMED BY: O-CODES Dzrwas3117 [facility] [id number] BY: [employer] [id number] Information: [id number] (13159) RA Latex Turbid. 8.1 {IU/mL} (Normal) Range: 0.0-13.9 :54 SED RATE ERYTHROCYTE Comments: PATIENT NOT FASTINGPERFORMED BY: [facility]CoThe [facility] HospitalBwjign7796 [facility] [id number] BY: [facility] [id number] (11371) Sedimentation Rate-Westergren 17 mm/h (Normal) Range: 0-40 :54 C-REACTIVE PROTEIN (23883) Comments: PATIENT NOT FASTINGPERFORMED BY: [facility]CoThe [facility] HospitalLzcohk0390 [facility] [id number] BY: [facility] [id number] C-Reactive Protein, Quant 4.4 mg/L (Normal) Range: 0.0-4.9 :10 HgA1C , Office (18815) HgA1C , Office 6.1 % (Normal) Range: 4.6 - 7.1 :17 CBC W/Diff, Automated Comments: Test performed at:[facility] [address] [place] [address] Absolute Lymph 3.10 {X10_3/ul} (Normal) Range: 0.83-4.51 [...] 4.2-5.4 WBC 8.6 K/mm3 (Normal) Range: 4.4-11.0 91-Zue-99097:17 Comprehensive Metabolic Profil Comments: Test performed at:[facility] [address] [place] [address] GAP 5 (Normal) Range: 5-15 CO2 27.0 [...] Comments: Please note revised CREATININE reference range jbfegarmr12/22/2015. BUN 14 mg/dL (Normal) Range: 7-18 GLU 101 mg/dL (Normal) Range: 70-110 :17 CHI + Protein Elect, Serum Comments: Is Patient Fasting? YTest performed at:[facility] [address] [place], [place] [id number] NOTE: Comment (Normal) Comments: Protein electrophoresis scan will follow via computer,mail, or rug hooker hand delivery. CHI RESULT,S Comment (Normal) Comments: An apparent polyclonal gammopathy: IgM. Mcalester and lambdatyping appear increased. A/G RATIO 1.0 (Normal) Range: 0.7-2.0 GLOBULIN, TOTAL 3.5 g/dL (Normal) Range: 2.0-4.5 M-SPIKE (Normal) Comments: Not Observed GAMMA GLOBULIN 1.5 g/dL (Normal) Range: 0.5-1.6 BETA GLOBULIN 1.0 g/dL (Normal) Range: 0.6-1.3 OXZML-2-IHRX 0.8 g/dL (Normal) Range: 0.4-1.2 CHVDH-0-ECOI 0.2 g/dL (Normal) Range: 0.1-0.4 ALBUMIN 3.4 g/dL (Normal) Range: 3.2-5.6 IMMUNOGL M 1792 637 mg/dL (Abnormal) Range: 40-230 IMMUNO A 1784 194 mg/dL (Normal) Range: 91-414 IMMUNO G 1776 1349 mg/dL (Normal) Range: 700-1600 PROTEIN,TOTAL 6.9 g/dL (Normal) Range: 6.0-8.5 :17 Immunofixation Urine Comments: Is Patient Fasting? YTest performed at:[facility] [address] [place], [place] [address] CHI Urine Comment (Normal) Comments: No monoclonality detected.Performed at: - [facility] [id number] Director: Jan Wilcox PhD, Phone: [phone] Lipid Profile Comments: Test performed at:[facility] [address] [place] [address] VLDL 34 mg/dL (Normal) Range: [...] Risk :17 Uric Acid Comments: Test performed at:[facility] [address] [place] [address] URIC 7.4 mg/dL (Abnormal) Range: 2.6-6.0 Comments: ADDENDA: non-emergent till apt 4-Xrf-273843:24 HgA1C , Office (25391) HgA1C , Office 6.2 % (Normal) Range: 4.6 - 7.1 :26 CBC W/Diff, Automated Comments: Test performed at:[facility] [address] [place] [address] Absolute Lymph 3.11 {X10_3/ul} (Normal) [...] :26 Comprehensive Metabolic Profil Comments: Test performed at:[facility] [address] [place] [address] GAP 6 (Normal) Range: 5-15 CO2 29.0 [...] 70-110 :26 Lipid Profile Comments: Test performed at:[facility] [address] [place], [place] [address] VLDL 27 mg/dL (Normal) Range: 5-40 LDL [...] :26 Microalb:Creat Ratio,Random UR Comments: Test performed at:[facility] [address] [place] [address] MALB:CREAT 7.0 {mg/g_CRE} (Normal) MICROALBUMIN,UR 7.4 mg/L (Normal) UR CREAT 105.5 mg/dL (Normal) :26 Uric Acid Comments: Test performed at:[facility] [address] [place] [address] URIC 7.4 mg/dL (Abnormal) Range: 2.6-6.0 89-Fif-797183:22 HgA1C , Office (88864) HgA1C , Office 6.3 % (Normal) Range: [...] 7-18 GLU 86 mg/dL (Normal) Range: 70-110 18-Mar-20146:13 LIPID Comments: non-emergent till apt VLDL 29 [...] CHOL 209 mg/dL (Abnormal) Comments: <200 mg/dL Yajqseire712-943 mg/dL Borderline>240 mg/dL High Risk 23-Msx-287633:56 Free K+L Lt Chains,Qn,S Comments: PATIENT NOT FASTINGPERFORMED BY: [facility] Aljnjd1477 [facility] [id number] Free Lambda Lt Chains,S 16.87 mg/L (Normal) Range: 5.71-26.30 Mcalester/Lambda Ratio,S 0.90 (Normal) Range: 0.26-1.65 Free Mcalester Lt Chains,S 15.10 mg/L (Normal) Range: 3.30-19.40 71-Tjm-851981:56 Protein Electrophoresis, Serum Comments: PATIENT NOT FASTINGPERFORMED BY: [facility]osticsThe Valley HospitalOnwouc8162 [facility] [id number] (SPEP) (16677) A/G Ratio 1.0 (Normal) Range: 0.7-2.0 Please note: SPRCS (Normal) Comments: Protein electrophoresis scan will follow via computer, mail, orcourier delivery. Globulin, Total 3.5 g/dL (Normal) Range: 2.0-4.5 M-Isaias Not Observed g/dL (Normal) Gamma Globulin 1.5 g/dL (Normal) Range: 0.5-1.6 Lwplg-9-Kjpebatf 0.9 g/dL (Normal) Range: 0.4-1.2 Beta Globulin 0.9 g/dL (Normal) Range: 0.6-1.3 Wkudl-8-Vpmtdvvx 0.2 g/dL (Normal) Range: 0.1-0.4 Albumin 3.6 g/dL (Normal) Range: 3.2-5.6 Protein, Total, Serum 7.1 g/dL (Normal) Range: 6.0-8.5 :56 UPEP (18427) Comments: PATIENT NOT FASTINGPERFORMED BY: [facility]CoThe [facility] HospitalIgtwkv3816 [facility] [id number] Please note: SPRCS (Normal) Comments: Protein electrophoresis scan will follow via computer, mail, orcourier delivery. Gamma Globulin, U 45.6 % (Normal) M-Isaias, % Comment: % (Normal) Comments: ATYPICAL GAMMA Rimzb-1-Vkllgvec, U 8.7 % (Normal) Beta Globulin, U 33.4 % (Normal) Albumin, U 9.4 % (Normal) Xwxaw-7-Mygebqxx, U 2.9 % (Normal) Protein,Total,Urine 12.0 mg/dL (Normal) Range: 0.0-15.0 03-Tiy-386070:09 HgA1C , Office (50526) HgA1C , Office 6.5 % (Normal) Range: [...] CHOL 180 mg/dL (Normal) Comments: <200 mg/dL Eiycjbcze667-421 mg/dL Borderline>240 mg/dL High Risk :59 LIVER Comments: SPECIMEN HEMOLYZED BID 0.08 mg/dL (Normal) Range: 0.00-0.30 ALT 55 U/L (Normal) Range: 12-78 BIT 0.30 mg/dL (Normal) Range: 0.00-1.00 ALK 65 U/L (Normal) Range: 45-117 AST 32 U/L (Normal) Range: 15-37 ALB 3.5 g/dL (Normal) Range: 3.4-5.0 TPROT 7.5 g/dL (Normal) Range: 6.4-8.2 07-Nob-767649:54 HgA1C , Office (41036) HgA1C , Office 6.4 % (Normal) Range: [...] 4.2-5.4 WBC 8.6 K/mm3 (Normal) Range: 4.4-11.0 :27 CMP LDL 79 mg/dL (Normal) Range: 0-130 VLDL 19 mg/dL (Normal) Range: 5-40 CHOL 144 mg/dL (Normal) Comments: <200 mg/dL Bkvhlanuy523-199 mg/dL Borderline>240 mg/dL High Risk HDL 46 [...] 9.5 {mg/g_CRE} (Normal) :26 HgA1C , Office (18471) HgA1C , Office 6.3 % (Normal) Range: [...] CHOL 132 mg/dL (Normal) Comments: <200 mg/dL Bgxylcxff090-793 mg/dL Borderline>240 mg/dL High Risk :17 MIACRE tMICROCREAT 7.5 {mg/g_CRE} (Normal) MIALB 9.8 mg/L (Normal) CREU 129.4 mg/dL (Normal) :17 URIC 4.5 mg/dL (Normal) Range: 2.6-6.0 :22 HgA1C , Office (42466) HgA1C , Office 6.3 % (Normal) Range: 4.6 - 7.1 :16 HgA1C , Office (91823) HgA1C , Office 5.8 % (Normal) Range: [...] mg/dL High Risk :18 HgA1C , Office (84224) HgA1C , Office 6.3 % (Normal) Range: 4.6 - 7.1 :18 Blood Glucose , Office (84002) Blood Glucose , Office 108 (Normal) Comments: [...] 4.2-5.4 WBC 9.5 K/mm3 (Normal) Range: 4.4-11.0 00-Kgs-41148:14 CMP Comments: f/u 07/31/11 GAP 8 (Normal) Range: 5-15 CO2 28.0 [...] mg/dL High Risk :08 HgA1C , Office (87522) HgA1C , Office 6.1 % (Normal) Range: 4.6 - 7.1 :08 Blood Glucose , Office (90281) Blood Glucose , Office 98 (Normal) :16 [...] 63.1 mg/dL (Normal) :35 HgA1C , Office (47215) HgA1C , Office 6.5 % (Normal) Range: 4.6 - 7.1 :35 Blood Glucose , Office (23962) Blood Glucose , Office 101 (Normal) :20 [...] 68%. Dictated on 11/28/10 1248 by Zain SALVADOR,PaulTranscribed on 11/28/10 1319 by Apolinar DA SILVA by Tanner Pittman MD on 11/28/10 1414 Sign by: Tanner Pittman [...] (Normal) Range: 0.358-3.74 :44 HgA1C , Office (11122) HgA1C , Office 6.3 % (Normal) Range: 4.6 - 7.1 :44 Blood Glucose , Office (97068) Blood Glucose , Office 136 (Normal) :09 [...] >240 mg/dL High Risk :09 VIT D,25 84110 36.0 ng/mL (Normal) Range: 32.0-100.0 Comments: Recent studies consider the lower limit of 32.0 ng/mL to amaury threshold for optimal health.Michael GONG. J Nutr. 2004;135(2):317-22.Performed at: [facility] LabNatalie Ville [address]Lab Director: Angie Grace MD, Phone: [phone] HgA1C , Office (41729) HgA1C , Office 6.6 % (Normal) Range: 4.6 - 7.1 :07 Blood Glucose , Office (00199) Blood Glucose , Office 128 (Normal) :13 [...] CHOL 148 mg/dL (Normal) Comments: <200 mg/dL Taglcmxcp278-680 mg/dL Borderline>240 mg/dL High Risk HDL 37 [...] 95.4 mg/dL (Normal) :12 HgA1C , Office (27112) HgA1C , Office 6.5 % (Normal) Range: 4.6 - 7.1 :12 Blood Glucose , Office (88255) Blood Glucose , Office 142 (Normal) :39 [...] CHOL 139 mg/dL (Normal) Comments: <200 mg/dL Dggpyxdrw859-871 mg/dL Borderline>240 mg/dL High Risk HDL 42 [...] mg/dL (Normal) Range: 5-40 :34 VIT D,25 34483 48.4 ng/mL (Normal) Range: 32.0-100.0 Comments: Recent studies consider the lower limit of 32.0 ng/mL to amaury threshold for optimal health.Michael GONG. J Nutr. 2004;135(2):317-22.Performed at: CB - [facility] Ehquwp8025 [place], [place] [id number] Director: Pavel Wild MD :00 Antinuclear Antibodies Comments: PERFORMED BY: [address] [id number] BY: [facility]6370 [facility] [id number] Direct JOSE ALEJANDRO Direct Negative (Normal) :00 C-Reactive Protein, 1.5 mg/L (Normal) Comments: PERFORMED BY: [address] [id number] BY: [address] [id number] Quant Range: 0.0-4.9 :00 Rheumatoid Arthritis Comments: PERFORMED BY: [address] [id number] BY: [place] [address] [facility] [id number] Factor RA Latex Turbid. 4.9 {IU/mL} Range: 0.0-13.9 (Normal) : Sedimentation 17 mm/h (Normal) Comments: PERFORMED BY: [address] [id number] BY: [facility]6370 [facility] [id number] 00 Rate-Westergren Range: 0-30 :00 Strongyloides Ab IgG, MENDEZ Comments: PERFORMED BY: [address] [id number] BY: [facility]6370 [facility] [id number] Strongyloides Ab, IgG by 0.69 {IV} (Normal) [...] and its performance character istics de-termined by [employer]. It has not been approvedby the U.[place]. [...] (Normal) Range: 4.4-11.0 :34 HgA1C , Office (83764) HgA1C , Office 6.5 % (Normal) Range: 4.6 - 7.1 :34 Blood Glucose , Office (03476) Blood Glucose , Office 127 (Normal) :39 [...] 47-70 WBC 10.2 K/mm3 (Normal) Range: 4.4-11.0 77-Ura-10052:39 COMP METABOLIC CL 105 mmol/L (Normal) Range: [...] CHOL 210 mg/dL (Abnormal) Comments: <200 mg/dL Pbfvwurcx806-088 mg/dL Borderline>240 mg/dL High Risk HDL 41 mg/dL (Normal) Comments: Reference RangeHDL <40 mg/dL Low HDL CholesterolHDL >or= 60 mg/dL High HDL Cholesterol LDL 126 mg/dL (Normal) Range: 0-130 TRIG 216 mg/dL (Abnormal) Comments: Serum Triglycerides Reference IntervalNormal <150 mg/dLBorderline high 150 - 199 mg/dLHigh 200 - 499 mg/ dLVery High > or = 500 mg/dL 51-Cqx-746987:16 CHEST, PA AND LATERAL Radiology Report See Note (Normal) Comments: Exam Number: [id number] PA AND LATERAL VIEW OF THE CHEST TBMNWRU63-fmmk-sae woman with shortness of breath. PA AND LATERAL VIEWS OF THE CHEST Comparison of February 26, 2006. Cardiac and medi astinal silh ouettes are normal. The lungs are clear.Pleural margins are sharp. Osteopenia but no compression deformities. IMPRESSIONNo evidence of acute disease. Reported By: ELIAS BACON M.D. 77-Ppv-181463:21 Urinalysis, Office (91390) UA - BILIRUBIN Negative (Normal) UA - BLOOD Negative (Normal) UA - GLUCOSE Negative (Normal) UA - KETONES Negative mg/dL (Normal) UA - LEUKOCYTE ESTERASE Negative (Normal) UA - NITRITE Negative (Normal) UA - PH 5.0 (Normal) UA - PROTEIN Negative mg/dL (Normal) UA - SPECIFIC GRAVITY 1.010 (Normal) URINE UROBILINGN ROCKY TIMED Normal mg/dL (Normal) 21-Utz-794127:14 HgA1C , Office (06485) HgA1C , Office 6.3 % (Normal) Range: 4.6 - 7.1 :14 Blood Glucose , Office (13977) Blood Glucose , Office 118 (Normal) :15 [...] mg/L (Normal) UR CREAT 157.0 mg/dL (Normal) 52-Ajy-816438:45 [facility] [id number] Comments: CYTOLOGY INFORMATION:- CLINICAL INFORMATION: - DATE LMP/MENOPAUSE: DATE NOT GIVEN MENOPAUSE- COLLECTION VIAL: Thin Prep Vial- OPERATING ROOM MANAGER SOURCE: CERVICAL/ENDOCERVICAL- COLLECTION TECHNIQUE: BRUSH/SPATULA ADEQ Comment [...] no HPV testing was performed. .Performed At: [address] [id number] [facility] Comment (Normal) Comments: The Pap smear is a screening test designed to aid in thedetection of premalignant and malignant conditions of theuterine cervix. It is not a diagnostic procedure andshould not be used as the sole means of detecting cervicalcancer. Both false-positive and false-negative reports dooccur. . PERFORM Comment (Normal) Comments: Mirian Martins, Reproduction Order Processor (ASCP) DIAGN Comment (Normal) Comments: NEGATIVE FOR INTRAEPITHELIAL LESION AND MALIGNANCY.CELLULAR CHANGES ASSOCIATED WITH INFLAMMATION ARE PRESENT. :18 Blood Glucose , Office (30158) Blood Glucose , Office 112 (Normal) :18 HgA1C , Office (58884) HgA1C , Office 6.0 % (Normal) Range: [...] POS & NEG ORGANISMS :33 Urinalysis, Office (30356) UA - BILIRUBIN Negative (Normal) UA - BLOOD Negative (Normal) UA - GLUCOSE Negative (Normal) UA - KETONES Negative mg/dL (Normal) UA - LEUKOCYTE ESTERASE Negative (Normal) UA - NITRITE Negative (Normal) UA - PH 5.0 (Normal) UA - PROTEIN Negative mg/dL (Normal) UA - SPECIFIC GRAVITY 1.015 (Normal) URINE UROBILINGN ROCKY TIMED 2 mg/dL (Normal) :32 HgA1C , Office (04060) HgA1C , Office 6.1 % (Normal) Range: 4.6 - 7.1 :32 Blood Glucose , Office (97530) Blood Glucose , Office 112 (Normal) :17 [...] (Normal) Range: 6.4-8.2 :42 HgA1C , Office (26360) HgA1C , Office 5.9 % (Normal) Range: 4.6 - 7.1 :42 Blood Glucose , Office (98105) Blood Glucose , Office 116 (Normal) :32 [...] Range: 6.4-8.2 :19 Blood Glucose , Office (12914) Blood Glucose , Office 107 (Normal) Comments: :19 HgA1C , Office (36252) HgA1C , Office 5.8 % (Normal) Range: [...] Range: 0.34-4.82 :55 Blood Glucose , Office (99409) Blood Glucose , Office 138 (Normal) Comments: 2HPPBS :45 ALDOST,U24 4291 Comments: 24 H URINE TV = 1230 ML ALDOSTERONE,U24 10 {ug/24_hr} (Normal) Range: 2-21 Comments: 1 mo. 1 - 11 1- 12 mos. 1 - 22 1- 16 yrs. 2 - 16 Adult Ranges Normal diet 2 - 21 Low salt 17 - 44 High salt 0 - 14Performed At: [address] [id number] ALDOSTERONE,UR 8 ug/L (Normal) :45 FUNMI U24 [id number] Comments: 24 H URINE TV = 1230 ML CORTISOL,FR U24 59 {ug/24_hr} (Normal) CORTISOL,U FREE 48 ug/L (Normal) :15 CAT+VMA [id number] DOPAMINE,U24 195 Range: 65-610 {ug/24_hr} Comments: TESTING PERFORMED AT [facility]. ORIGINAL REPORT ON FILE IN LAB CONTAINS ADDITIONAL TEST SITE INFORMATION. (Normal) DOPAMINE,UR 186 ug/L (Normal) EPINEPHRINE, 7 ug/L UR (Normal) EPINEPHRINE,U 7 Range: 0-24 24 {ug/24_hr} (Normal) NOREPINEPH,U2 46 Range: 0-140 4 {ug/24_hr} (Normal) NOREPINEPH,UR 44 ug/L (Normal) VMA,24UR 4.3 Range: 1.8-6.7 {mg/24_hr} (Normal) VMA,UR 4.1 mg/L (Normal) :15 METAN,U24 4234 METANEPH,U24 112 {ug/24_hr} (Normal) Range: 35-460 Comments: Performed At: [address] [id number] METANEPHRINE,UR 107 ug/L (Normal) NORMETANEPH,U24 336 {ug/24_hr} (Normal) Range: 110-1050 NORMETANEPH,UR 320 ug/L (Normal) :42 MYOCARD PERF SPECT REST/STRESS Radiology Report See Note (Normal) Comments: Exam Number: [id number] MYOCARDIAL PERFUSION SCAN 12.6 millicuries of Tc99m [...] 7.2 g/dL (Normal) Range: 6.4-8.2 :49 H.PYLORI [id number] < 0.9 U/mL (Normal) Range: 0.0-0.8 Comments: Negative <0.9 Indeterminate 0.9 - 1.0 Positive >1.0Performed At: [facility] [id number] [place], [place] [id number] :49 TSH 1.86 {uIU/mL} (Normal) Range: 0.34-4.82 :26 HgA1C , Office ([id number]) Comments: [facility] HgA1C , Office 5.7 % (Normal) Range: 4.6 - 7.1 :26 Blood Glucose , Office (24030) Comments: [facility] Blood Glucose , Office 116 (Normal) [...] Range: 5-40 :35 Blood Glucose , Office (57395) Blood Glucose , Office 140 (Normal) :34 HgA1C , Office (07458) HgA1C , Office 6.8 % (Normal) Range: 4.6 - 7.1 :10 GLUP 154 mg/dL (Abnormal) Comments: GLU,2HPPG 75gm GLUC PPG GLUP from [id number]. Comments: Glucose result from 140 to <200 [...] T PROT 6.9 g/dL (Normal) Range: 6.4-8.2 57-[id number]-[id number]:59 COMPLETE UA BACTERIA 0 SEEN {/hpf} (Normal) [...] Plan of Care Name Dates Details Instructions Post-nasal drainage : Follow up if no [...] cell neoplasm of lung, left : Reviewed Software Programmer Letter Indication: Nonsquamous nonsmall cell neoplasm of [...] level Elevated serum globulin level : Reviewed Software Programmer Letter Indication: Elevated serum globulin level Controlled diabetes mellitus type II without complication : Follow up in 3 months Indication: Controlled diabetes mellitus type II without complication Monoclonal gammopathy : Reviewed Lab Indication: Monoclonal gammopathy Monoclonal gammopathy : Reviewed Diagnostic Tests Indication: Monoclonal gammopathy Monoclonal gammopathy : Reviewed Software Programmer Letter Indication: Monoclonal gammopathy Controlled diabetes mellitus [...] hypertension Planned Observations Rapid Strep Test, Office ([id number])Indication: Sore throat On: 5-Hrx-581578:56 Request Throat Culture ([id number])Indication: Sore throat On: 6-Gtn-638003:35 Request Cologuard - Strool Based DNA Test, CRC SCREEN ([id number])Indication: Encounter for screening for malignant neoplasm of rectum On: 27-Qrq-595832:48 Request CALCIFEDIOL (05937)Indication: Vitamin D deficiency On: 89-Wpt-025126:35 Request MICROALBUMIN: CREATININE RATIO ([id number]) AND ([id number])Indication: Benign essential hypertension On: 91-Ngy-107703:34 Request URINALYSIS, W/ MICRO (48997)Indication: Benign essential hypertension On: 16-Pwc-549376:34 Request TSH ([id number])Indication: Benign essential hypertension On: 70-Ije-783795:34 Request Lipid Panel (53139)Indication: Mixed hyperlipidemia On: 63-Ekn-049445:34 Request CBC WITH MANUAL DIFF ([id number])Indication: Benign essential hypertension On: :34 Request Metabolic Panel, Comprehensive ([id number])Indication: Vitamin D deficiency On: 38-Btx-638832:34 Request FECAL OCCULT- Tubes sent home ([id number])Indication: Anemia, unspecified (Renamed from Anemia) On: 84-Fzd-123802:18 Request IRON ([id number])Indication: Anemia, unspecified (Renamed from Anemia) On: 79-Xuq-236769:18 Request TSH (THYROID STIMULATING HORMONE) ([id number])Indication: Benign essential hypertension On: 84-Ccn-403624:02 Request LIPID PANEL (67121)Indication: Mixed hyperlipidemia On: 64-Xen-243679:59 Request METABOLIC PANEL, COMPREHENSIVE ([id number])Indication: Lymphadenopathy, cervical On: :58 Request CBC, PLATELETS & AUT DIFF ([id number])Indication: Lymphadenopathy, cervical On: :58 Request EB ANTIBODY NUCLR ANTIGN ([id number])Indication: Lymphadenopathy, cervical On: 2-Hzs-845707:39 Request MICROALBUMIN: CREATININE RATIO ([id number]) AND ([id number])Indication: Controlled diabetes mellitus type II without complication On: 7-Qvz-025456:03 Request CALCIFEDIOL ([id number])Indication: Controlled diabetes mellitus type II without complication On: 9-Rlv-502375:03 Request TSH (THYROID STIMULATING HORMONE) ([id number])Indication: Controlled diabetes mellitus type II without complication On: 6-Bvg-316295:03 Request LIPID PANEL ([id number])Indication: Controlled diabetes mellitus type II without complication On: 8-Obc-860312:03 Request METABOLIC PANEL, COMPREHENSIVE ([id number])Indication: Controlled diabetes mellitus type II without complication On: 0-Kfr-338034:03 Request CBC, PLATELETS & AUT DIFF ([id number])Indication: Controlled diabetes mellitus type II without complication On: 4-Ixr-223263:03 Request MICROALBUMIN: CREATININE RATIO ([id number]) AND ([id number])Indication: Benign essential hypertension On: :36 Request VITAMIN B12 AND FOLATES ([id number])Indication: Benign essential hypertension On: :36 Request CALCIFEDIOL ([id number])Indication: Benign essential hypertension On: 96-Dxt-731728:36 Request LIPID PANEL ([id number])Indication: Benign essential hypertension On: :36 Request METABOLIC PANEL, COMPREHENSIVE (91072)Indication: Benign essential hypertension On: :36 Request CBC, PLATELETS & AUT DIFF ([id number])Indication: Benign essential hypertension On: :36 Request CBC with auto diff ([id number])Indication: Controlled diabetes mellitus type II without complication On: : Request HGB A1C ([id number])Indication: Controlled diabetes mellitus type II without complication On: : Request MICROALBUMIN: CREATININE RATIO ([id number]) AND ([id number])Indication: Controlled diabetes mellitus type II without complication On: : Request METABOLIC PANEL, COMPREHENSIVE (61414)Indication: Mixed hyperlipidemia On: : Request LIPID PANEL ([id number])Indication: Mixed hyperlipidemia On: : Request HGB A1C (88796)Indication: Controlled diabetes mellitus type II without complication On: 43-Uoo-194516:15 Request CBC with auto diff ([id number])Indication: Allergic eosinophilia On: 34-Qge-072634:14 Request LIPID PANEL (03049)Indication: Mixed hyperlipidemia On: 65-Knw-636306:14 Request METABOLIC PANEL, COMPREHENSIVE (80211)Indication: Benign essential hypertension On: 47-Igg-347552:13 Request serum free light chains ([id number])Indication: Elevated serum globulin level On: 08-Ujz-549464:13 Request urine immunofixation (69813)Indication: Elevated serum globulin level On: 54-Gfj-584911:13 Request serum immunofixation (63889)Indication: Elevated serum globulin level On: 93-Atg-210552:13 Request LIPID PANEL ([id number])Indication: Mixed hyperlipidemia On: :46 Request URIC ACID BLOOD ([id number])Indication: Gout On: :46 Request METABOLIC PANEL, COMPREHENSIVE (39190)Indication: Benign essential hypertension On: :45 Request CBC with auto diff ([id number])Indication: Allergic eosinophilia On: :45 Request MICROALBUMIN: CREATININE RATIO ([id number]) AND ([id number])Indication: Controlled diabetes mellitus type II without complication On: :45 Request Hemoglobin Glyclated (HGB A1C) (48812)Indication: Controlled diabetes mellitus type II without complication On: 2-Zwi-040387:45 Request URIC ACID BLOOD ([id number])Indication: Gout On: 5-Cdr-978692:54 Request LIPID PANEL ([id number])Indication: Mixed hyperlipidemia On: 3-Wdo-219467:52 Request METABOLIC PANEL, COMPREHENSIVE ([id number])Indication: Controlled diabetes mellitus type II without complication On: 7-Bpa-343954:52 Request CBC W/AUTO DIFF WBC ([id number])Indication: Allergic eosinophilia On: 5-Acx-447486:52 Request urine immunofixation ([id number])Indication: Elevated serum globulin level On: :52 Request serum immunofixation (46735)Indication: Elevated serum globulin level On: 8-Hte-533469:52 Request URIC ACID BLOOD ([id number])Indication: Gout On: 26-Hfp-909221:06 Request MICROALBUMIN: CREATININE RATIO ([id number]) AND ([id number])Indication: Controlled diabetes mellitus type II without complication On: 20-Eui-617800:05 Request LIPID PANEL (42038)Indication: Mixed hyperlipidemia On: 39-Csg-905779:04 Request CBC W/AUTO DIFF WBC ([id number])Indication: Allergic eosinophilia On: 03-Iqa-588464:04 Request METABOLIC PANEL, COMPREHENSIVE ([id number])Indication: Controlled diabetes mellitus type II without complication On: 22-Wwa-245951:04 Request LIPID PANEL (46072)Indication: Mixed hyperlipidemia On: 0-Wic-683437:43 Request CBC W/AUTO DIFF WBC ([id number])Indication: Allergic eosinophilia On: 7-Imt-386229:43 Request METABOLIC PANEL, COMPREHENSIVE ([id number])Indication: Controlled diabetes mellitus type II without complication On: 6-Gjx-992397:43 Request serum free light chains (87481)Indication: Elevated serum globulin level On: 68-Vms-254397:36 Request LIPID PANEL ([id number])Indication: Mixed hyperlipidemia On: 4-Cat-690485:17 Request METABOLIC PANEL, COMPREHENSIVE (60058)Indication: Benign essential hypertension On: 7-Jcb-465833:17 Request CBC WITH MANUAL DIFF ([id number])Indication: Allergic eosinophilia On: 4-Kch-397283:17 Request HEPATIC FUNCTION PANEL ([id number])Indication: Abnormal finding of blood chemistry, unspecified On: 14-Psb-600299:16 Request Comments: 2 weeks URIC ACID BLOOD ([id number])Indication: Left hip pain On: 55-Hyt-261994:44 Request LIPID PANEL (18503)Indication: Mixed hyperlipidemia On: :08 Request MICROALBUMIN: CREATININE RATIO ([id number]) AND ([id number])Indication: Controlled diabetes mellitus type II without complication On: :08 Request CBC WITH MANUAL DIFF ([id number])Indication: Benign essential hypertension On: :08 Request METABOLIC PANEL, COMPREHENSIVE (30887)Indication: Benign essential hypertension On: :08 Request Uric Acid Blood ([id number])Indication: Foot pain On: :41 Request CBC WITH MANUAL DIFF ([id number])Indication: Benign essential hypertension On: :50 Request LIPID PANEL (33203)Indication: Mixed hyperlipidemia On: :50 Request MICROALBUMIN: CREATININE RATIO (17207) AND ([id number])Indication: Controlled diabetes mellitus type II without complication On: :50 Request METABOLIC PANEL, COMPREHENSIVE ([id number])Indication: Controlled diabetes mellitus type II without complication On: :50 Request METABOLIC PANEL, COMPREHENSIVE ([id number])Indication: Controlled diabetes mellitus type II without complication On: :43 Request METABOLIC PANEL, COMPREHENSIVE ([id number])Indication: Benign essential hypertension On: :36 Request LIPID PANEL ([id number])Indication: Mixed hyperlipidemia On: :36 Request CBC WITH MANUAL DIFF ([id number])Indication: Allergic eosinophilia On: :36 Request MICROALBUMIN: CREATININE RATIO ([id number]) AND ([id number])Indication: Controlled diabetes mellitus type II without complication On: :41 Request METABOLIC PANEL, COMPREHENSIVE (65293)Indication: Controlled diabetes mellitus type II without complication On: :33 Request LIPID PANEL ([id number])Indication: Mixed hyperlipidemia On: : Request HgA1C , Office ([id number])Indication: Controlled diabetes mellitus type II without complication On: :17 Request LIPID PANEL ([id number])Indication: Mixed hyperlipidemia On: :45 Request METABOLIC PANEL, COMPREHENSIVE ([id number])Indication: Controlled diabetes mellitus type II without complication On: :45 Request CBC WITH MANUAL DIFF ([id number])Indication: Allergic eosinophilia On: :45 Request CBC WITH MANUAL DIFF ([id number])Indication: Allergic eosinophilia On: :34 Request LIPID PANEL (67043)Indication: Mixed hyperlipidemia On: :34 Request METABOLIC PANEL, COMPREHENSIVE ([id number])Indication: Controlled diabetes mellitus type II without complication On: :31 Request CBC WITH MANUAL DIFF ([id number])Indication: Need for prophylactic vaccination and inoculation against influenza On: : Request CBC WITH MANUAL DIFF ([id number])Indication: Allergic eosinophilia On: :59 Request LIPID PANEL (48844)Indication: Mixed hyperlipidemia On: :57 Request MICROALBUMIN: CREATININE RATIO ([id number]) AND ([id number])Indication: Controlled diabetes mellitus type II without complication On: :56 Request METABOLIC PANEL, COMPREHENSIVE ([id number])Indication: Controlled diabetes mellitus type II without complication On: :56 Request TSH ([id number])Indication: Symptomatic tachycardia On: :21 Request CBC WITH MANUAL DIFF ([id number])Indication: Allergic eosinophilia On: 3-Uuy-848066:20 Request Comments: 2 weeks METABOLIC PANEL, COMPREHENSIVE ([id number])Indication: Benign essential hypertension On: :20 Request LIPID PANEL ([id number])Indication: Mixed hyperlipidemia On: :19 Request LIPID PANEL ([id number])Indication: Mixed hyperlipidemia On: 5-Wqi-837728:20 Request CALCIFEDIOL ([id number])Indication: POSTMENOPAUSAL STATE On: :53 Request METABOLIC PANEL, COMPREHENSIVE (21331)Indication: Benign essential hypertension On: :53 Request CBC with manual diff ([id number])Indication: Benign essential hypertension On: 80-Ptw-887018:53 Request LIPID PANEL ([id number])Indication: Mixed hyperlipidemia On: :53 Request CBC WITH MANUAL DIFF ([id number])Indication: Allergic eosinophilia On: :40 Request Comments: 1 month after takes meds CBC WITH MANUAL DIFF ([id number])Indication: Allergic eosinophilia On: :48 Request METABOLIC PANEL, COMPREHENSIVE ([id number])Indication: Benign essential hypertension On: :48 Request LIPID PANEL (99221)Indication: Mixed hyperlipidemia On: :48 Request MICROALBUMIN: CREATININE RATIO ([id number]) AND ([id number])Indication: Controlled diabetes mellitus type II without complication On: :48 Request RHEUMATOID FACTOR-QUANT (58696)Indication: Allergic eosinophilia On: :20 Request JOSE ALEJANDRO (ANTINUCLEAR ANTIBODY) ([id number])Indication: Allergic eosinophilia On: :20 Request C-REACTIVE PROTEIN ([id number])Indication: Allergic eosinophilia On: :20 Request SED RATE ERYTHROCYTE ([id number])Indication: Allergic eosinophilia On: :19 Request OVA & PARASITE DIR SMEAR ([id number])Indication: Allergic eosinophilia On: :14 Request LEUKOCYTE COUNT, FECAL (09094)Indication: Allergic eosinophilia On: :14 Request C.Difficile, Stool (48183)Indication: Allergic eosinophilia On: :14 Request MARIEL CULTURE-STOOL ([id number])Indication: Allergic eosinophilia On: :14 Request CBC WITH MANUAL DIFF ([id number])Indication: Allergic eosinophilia On: :09 Request HEPATIC FUNCTION PANEL ([id number])Indication: Mixed hyperlipidemia On: :09 Request LIPID PANEL (72613)Indication: Mixed hyperlipidemia On: :09 Request MICROALBUMIN: CREATININE RATIO ([id number]) AND ([id number])Indication: Abnormal glucose tolerance test On: 9-Prz-803866:44 Request HEPATIC FUNCTION PANEL ([id number])Indication: Mixed hyperlipidemia On: :34 Request LIPID PANEL ([id number])Indication: Mixed hyperlipidemia On: :34 Request CBC WITH MANUAL DIFF ([id number])Indication: Abdominal pain, unspecified abdominal location On: :51 Request HEPATIC FUNCTION PANEL ([id number])Indication: Mixed hyperlipidemia On: :49 Request LIPID PANEL (21909)Indication: Mixed hyperlipidemia On: 10-Wro-59807:48 Request LIPID PANEL ([id number])Indication: Mixed hyperlipidemia On: :02 Request HEPATIC FUNCTION PANEL ([id number])Indication: Mixed hyperlipidemia On: 0-Wya-896641:02 Request LIPID PANEL ([id number])Indication: Mixed hyperlipidemia On: :37 Request HEPATIC FUNCTION PANEL ([id number])Indication: Mixed hyperlipidemia On: :37 Request MICROALBUMIN URINE QUANT ([id number])Indication: Abnormal glucose tolerance test On: :02 Request URINALYSIS W/O MICRO ([id number])Indication: Abnormal glucose tolerance test On: :02 Request TSH ([id number])Indication: Abnormal glucose tolerance test On: : Request CBC WITH MANUAL DIFF ([id number])Indication: Abnormal glucose tolerance test On: : Request METABOLIC PANEL, COMPREHENSIVE ([id number])Indication: Abnormal glucose tolerance test On: : Request HEPATIC FUNCTION PANEL ([id number])Indication: Mixed hyperlipidemia On: :01 Request LIPID PANEL ([id number])Indication: Mixed hyperlipidemia On: :01 Request HgA1C , Office ([id number])Indication: Abnormal glucose tolerance test On: 5-Lvv-201546:55 Request HELICOBACTER PYLORI ANTIBODY PROFILE IgG, IgM, IgA ([id number])Indication: Epigastric pain On: 4-Gbq-481318:05 Request CBC WITH MANUAL DIFF ([id number])Indication: Palpitations On: 3-Nlh-636058:45 Request METABOLIC PANEL, COMPREHENSIVE ([id number])Indication: Palpitations On: 0-Unz-410001:45 Request TSH ([id number])Indication: Palpitations On: 1-Eda-070067:45 Request METABOLIC PANEL, COMPREHENSIVE ([id number])Indication: Mixed hyperlipidemia On: 08-Pby-230654:04 Request LIPID PANEL ([id number])Indication: Mixed hyperlipidemia On: 58-Mpt-609153:04 Request URINALYSIS W/O MICRO ([id number])Indication: Elevated blood-pressure reading without diagnosis of hypertension On: :22 Request TSH ([id number])Indication: Elevated blood-pressure reading without diagnosis of hypertension On: :22 Request MICROALBUMIN URINE QUANT ([id number])Indication: Elevated blood-pressure reading without diagnosis of hypertension On: :22 Request METABOLIC PANEL, COMPREHENSIVE (67643)Indication: Elevated blood-pressure reading without diagnosis of hypertension On: :22 Request CBC WITH MANUAL DIFF ([id number])Indication: Elevated blood-pressure reading without diagnosis of hypertension On: :22 Request LIPID PANEL ([id number])Indication: Mixed hyperlipidemia On: :21 Request HEPATIC FUNCTION PANEL ([id number])Indication: Mixed hyperlipidemia On: :20 Request GLUCOSE, PP/2 HOUR (77709)Indication: Hypoglycemia On: :20 Request Planned Procedures ELECTROCARDIOGRAM, COMPLETE (ECG) On: 06-Nov-2017 Intent ([id number])By: Katie Fernández DO Comments: nsr no acute cgh DOKatie CT SCAN, SOFT TISSUE NECK W/ CONTRAST On: 20-Aug-2016 Intent ([id number])By: Katie Fernández DO Comments: attention cervical lymph nodes DO, Katie TDAP VACCINE >7 IM ([id number])By: Jolene On: 08-Aug-2016 Intent Katie VANCE DO, Kathleen Comments: boostrixlot [id number] 10.9.18L Dltd, IMPrefilled syringeMegan Long, LPNVIS signed ELECTROCARDIOGRAM, COMPLETE (ECG) On: 19-Jul-2016 Intent (37150)By: Katie Fernández DO Comments: nsr no acute chg Katie VANCE Spirometry ([id number])By: Олег Santos MD On: 27-Dec-2015 Intent MAMMOGRAM, SCREENING, BOTH BREAST On: 09-Sep-2015 Intent ([id number])By: Jewell Coffman DO EKG (47982)By: Jewell Coffman DO On: 07-Dec-2013 Intent Eprescribed prescriptions ([id number])By: On: 05-Aug-2013 Intent Jewell Coffman DO PHYSICAL THERAPY EVALUATION ([id number])By: On: 06-Jul-2013 Intent Concha Ford CNP Radiology - Hip - LeftBy: Liliana CHAMBERS, On: 06-Jul-2013 Intent Concha Green Eprescribed prescriptions ([id number])By: On: 25-Mar-2013 Intent America Molina Eprescribed prescriptions ([id number])By: On: 09-Mar-2013 Intent Pebbles Medrano EKG (23743)By: America Molina On: 22-Oct-2012 Intent Comments: ekg showed normal sinus rhythym, normal axis, no acute st/t wave changes Eprescribed prescriptions ([id number])By: On: 21-May-2012 Intent America Molina IMMUNIZ ADMNIN, 1 VAC, SNGL/COMBO On: 16-Jan-2012 Intent ([id number])By: America Molina Pneumovax (05812)By: Jesse, On: 16-Jan-2012 Intent America Eprescribed prescriptions ([id number])By: On: 16-Jan-2012 Intent America Molina EKG ([id number])By: Jewell Coffman DO On: 31-Jul-2011 Intent Comments: ekg showed normal sinus rhythym, normal axis, no acute st/t wave changes no change in st segments inferiorly TD Injection , IM ([id number])By: Jesse On: 04-Apr-2011 Intent America Comments: [facility] 2008 FLU VAC, SPLIT, >3 YEARS, INTRAMUSC On: 04-Apr-2011 Intent ([id number])By: America Molina Comments: refuses Nuclear Stress Test/Stress On: 21-Jul-2010 Intent SPECT/TreadmillBy: Jewell Coffman DO EKG (40949)By: America Molina On: 21-Jul-2010 Intent EKG ([id number])By: America Molina On: 28-Dec-2009 Intent Comments: ekg showed normal sinus rhythym, normal axis, no acute st/t wave changes no change in inferior wall Nuclear Stress Test/Stress On: 22-Sep-2008 Intent SPECT/TreadmillBy: Jewell Coffman DO Spirometry ([id number])By: Jewell Coffman DO On: 22-Sep-2008 Intent A Comments: done km Radiology - Chest- PA and LatBy: Augustus On: 22-Sep-2008 Intent DO, Jewell A Pulse Oximetry (80569)By: Augustus VANCE On: 22-Sep-2008 Intent Jewell Ríos Comments: 97% EKG (78707)By: America Molina On: 22-Sep-2008 Intent Comments: done kmekg showed normal sinus rhythym, normal axis, no acute st/t wave changes Solu -Medrol Injection, 125 mg On: 10-May-2008 Intent ([id number])By: Jewell Coffman DO Comments: Amt: 2mlLot: OAUWWExp: 07Site: left hipTolerated: wellGiven By: JAMA Alcaraz EKG (62385)By: America Molina On: 20-Aug-2007 Intent Comments: ekg showed normal sinus rhythym, normal axis, no acute st/t wave changes Nuclear Stress Test/Stress On: 29-Aug-2006 Intent SPECT/TreadmillBy: Jewell Coffman DO Echo CompleteBy: ARTHUR CORRAL CNP On: 20-Aug-2006 Intent EKG ([id number])By: ARTHUR CORRAL CNP On: 20-Aug-2006 Intent Comments: NSR Holter Moniter (92042)By: ELLIS CHAMBERS On: 20-Aug-2006 Intent ARTHUR Holter Moniter (37268)By: Tyler On: 22-Jul-2006 Intent HAFSA Holter Moniter (61541)By: Augustus VANCE On: 03-Jul-2006 Intent Jewell Ríos EKG (87732)By: Jewell Coffman DO On: 26-Mar-2006 Intent Comments: ekg showed normal sinus rhythym, normal axis, no acute st/t wave changes Radiology - ChestBy: Jewell Coffman DO On: 13-Feb-2006 Intent Instructions Name Dates Details BMI 34.0-34.9,adult : How to access health [...] diabetes mellitus type II without complication Encounters Office Visit On: 17-Feb-2018 11:15 Encounter Reason: [...] tests - Date: (11.06.17 - refer to [facility]?).Encounter Diagnosis: Non-smoker, BMI 33.0-33.9,adult, Anemia, unspecified (Renamed [...] The patient does have durable power of patient registration representative and living will. The patient has noticed [...] for Tdap vaccination (Renamed from Need for ehlpcfexns-xdnlxqb-ingxyvaix (Tdap) vaccine, adult/adolescent) [facility] [...] Encounter Reason: Follow up tests - Date: (916)., [ADDITIONAL REASON] Follow up for chronic medical [...] Follow up for chronic medical issues: in genral doing well bp is good and needs [...] well. Patient has been compliant with instructions. Curren End: 25-Mar-2014 23:11 t medication use: no [...] the pneumovax- she has good bp only [place] think was making her bp too low [...] home and see how she does - shedoesnt thinkit is her statin , [ADDITIONAL REASON] [...] and leg pain gone- she went to [facility] and doing certain exercises and got better- [...] (796.2), GERD (530.81), Abdominal Pain,Unspecified Site (789.00), [facility] [place] [facility] Historical Summary On: 19-Jan-2008 [...] is beating faster actually took pulse and [id number] Encounter Diagnosis: Abnormal Glucose Tolerance Test (790.22), [...] [facility] Payers [employer] Gustavo Brown; a guarantor
--- OUTSIDE RECORDS SUMMARY | 2018-05-07 02:09 | XMS RPT_ITS | Continuity of Care Document ---
:1950 Author Organization [facility] Address [facility] [address] [place] [address] Phone Care Team Providers Name Role Phone [...] [phone]) Comments: HBA1c 5.6(05/01)HBA1c 5.8( (12/29)eye exam: [facility], 01/27.FBS: does not check at home, usualy in 120Eye exam : 01/28, [facility] Status: Active Deliveries (Parity) Comments: [...] for Tdap vaccination (Renamed from Need for pchibqdube-wmggmeo-sidkjqccr (Tdap) vaccine, adult/adolescent) (Z23, V06.1) Status: Active Non-smoker (Z78.9, V49.89) Status: Active Nonsquamous nonsmall cell neoplasm of lung, 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, 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) Comments: ccf being treated with gene therapy - found the [employer] / [employer] cat scan neck/chest/abdomen q3mo and brain scan [...] [facility] 3 yrs agoWorried about gaining weight [...] America Molina Start : 17-Mar-2008 Inactive Nystatin 106298 UNIT/ML Mouth/Throat Suspension 5 cc cc 5times [...] Refills: 0 Ordered:17-Aug-2009 Manasa Molina Vitamin D3 04815 UNIT Oral Capsule 1 (one) Capsule once a week for 60 days Quantity: 8 {Capsule} Refills: 0 Ordered:19-Apr-2016 Олег Santos MD Start : 19-Apr-2016 End : 18-Jun-2016 Inactive Vitamin K2-Vitamin D3 45-2000 MCG-UNIT Oral Capsule daily (45-2000 MCG-UNIT) Inactive ZOSTAVAX, 98615NNR/0.65ML (Subcutaneous Solution Reconstituted) 1 (one) For Solution one time dose for 0 days Quantity: 1 {For_Solution} Refills: 0 Ordered:22-Oct-2012 America Molina Start : 16-Jan-2012 End : 22-Oct-2012 Inactive Comments:Bring to doctors office immediately to receive injection unless you receive it at the pharmacy. ASPIRIN BUF(NGKUL-ELWSG-OXGCI), 81MG (Oral Tablet Delayed Release) 1 (one) [...] End : 12-Dec-2017 Discontinued CALCIUM + D, 106-897LE-YYFC (Oral Tablet) 1 tab qd for 0 [...] days Quantity: 14 {Tablet} Refills: 0 Ordered:13-Feb-2006 Serentiy Mixon Start : 13-Feb-2006 End : 26-Mar-2006 [...] Procedures Procedure Dates Details [place], [place] (015[address]) Date: 16-Jan-2012 Cancelled Colonoscopy, Screening Completed Jan-2015 Comments: benign polyp removed Date Value Details 06-Dec-2017 SCREENING MAMM (CAD), BILAT Result: Comments: See Note; NOTES: [facility] Imaging Services [address] [address] SCREENING MAMM (CAD), BILAT MR#: [id number] Acct: [id number] Name: LISETTE BROWN Rep # : [id number] : 1950 F 67 From: Riccardo Vazquez MD PCP: Katie Fernández DO Status: REG CLI Study: SCREENING MAMM (CAD), BILAT Date of Exam: 12/06/17 Exam# [id number] Ordering Dr: Paulo Hilario MD MAMMOGRAPHY - [...] Riccardo Vazquez MD at 13:26 EDT Tel [phone], Service support , CC: Mary Hilario MD; Katie Fernández DO Mold Swabber: Signed 12-Mar-2017 Discharge Instruction Result: Comments: See Note; NOTES: [facility] Medical Records Department [address] [place] [address] Discharge Instruction 03/09/17 0655 MR#: [id number] Acct: [id number] Name: LISETTE BROWN Rep #: [id number] : 1950 66 From: Norm Box MD PCP: Katie Fernández DO Status: DEP ER ED Disposition - Plan for ED Patient: Disposition: Home or Assisted Living Chief Compl aint: Eye Problem Instructions: ED Eye Injury Corneal Abrasion Referrals: Katie Fernández DO [Primary Care Provider] - Additional Instructions: Follow with your claim professional check in 5-7 days Wha t to do if you have Problems For any increased pain, shortness of breath, bleeding, nausea or vomiting, chest pain, or any unexpected problems, contact your Primary Care Provider. Call [facility] ([phone]) or report to the closest Emergency Room. Call 911 if necessary. 03/12/17 0643 <Electronically signed by Norm Box MD> Date Norm Box MD Cosigner Signature (If Indicated): Date CC: Katie Fernández DO 12-Mar-2017 Emergency Department Summary Result: Comments: See Note; NOTES: [facility] Medical Records Department [address] [place] [address] Emergency Department Summary 03/09/17 0653 MR#: [id number] Acct: [id number] Name: LISETTE BROWN Rep #: [id number] : 1950 66 From: Norm Box MD [...] her eye. She will follow-up with her claim professional. She will return if she worsens despite treatment. Treatment Plan: [] Disposition: [] Impression: [] Right corneal abrasion secondary to contact lens. T his note was generated with [employer] dictation software. It may contain incorrect words, [...] your Primary Care Provider. Call [facility] ([phone]) or report to the closest Emergency Room. Call 911 if necessary. 03/12/17 0643 &a mp;#60;Electronically signed by Norm Box MD> Date Norm Box MD Cosigner Signature (If Indicated): Date CC: Katie Fernnádez DO 11-Mar-2017 Discharge Instruction Result: Comments: See Note; NOTES: [facility] Medical Records Department [address] [place] [address] Discharge Instruction 03/11/17 1049 MR#: [id number] Acct: [id number] Name: LISETTE BROWN Lizz Rep #: [id number] : 1950 66 From: Guilherme Sun MD PCP: Katie Fernández DO Status: DEP ER ED Disposition - Plan for ED Patient: Disposition: Home or Assisted Living Chief Complai nt: Eye Problem Instructions: ED Eye Injury Corneal Abrasion Referrals: Guilherme Broussard MD [STAFF PHYSICIAN] - As soon as possible Additional Instructions: The contacts out. Usual glasses. Call follow -up with Dr. Broussard at the [facility] soon as possible. There is trace in ophthalmic ointment 4 times a day right eye. Tetracaine eyedrops for pain but only for the next 24 hours. Sunglasses to prevent glare. What to do if you have Problems For any increased pain, shortness of breath, bleeding, nausea or vomiting, chest pain, or any unexpected problems, contact your Primary Care Provid er. Call [facility] ([phone]) or report to the closest Emergency Room. Call 911 if necessary. 03/11/17 1545 <Electronically signed by Guilherme Sun MD> Date ___ Guilherme Sun MD Cosigner Signature (If Indicated): Date CC: Katie Fernández DO 11-Mar-2017 Emergency Department Summary Result: Comments: See Note; NOTES: [facility] Medical Records Department [address] [place] [address] Emergency Department Summary 03/11/17 1046 MR#: [id number] Acct: [id number] Name: LISETTE BROWN Rep #: [id number] : 1950 66 From: Guilherme Sun MD PCP: Katie Fernández DO Status: DEP ER - ER Visit Summary Date of Service: 03/11/17 Chief Complaint: Right eye discomfor t History of Present Illness: The patient is a 66 F does wear contacts. On started having right eye discomfort. Was seen in the [facility] ER Saturday evening and was diagnosed with [...] right eye with good relief of symptoms. [facility] t-lamp examination was performed with floor seen. [...] lens use. This note was generated with [employer] dictation software. It may contain incorrect words, [...] your Primary Care Provider. Call [facility] ([phone]) or report to the closest Emergency Room. Call 911 if necessary. 03/11/17 1545 <Electronically signed by Guilherme Sun MD> Date Guilherme Morales ignature (If Indicated): Date CC: Katie Fernández DO 23-Nov-2016 SCREENING MAMM (CAD), BILAT Result: Comments: See Note; NOTES: [facility] Imaging Services [address] [place] [address] SCREENING MAMM (CAD), BILAT MR#: [id number] Acct: [id number] Name: KRANTHILISETTE Lizz Rep # : [id number] : 1950 F 66 From: Riccardo Vazquez MD PCP: Katie Fernández DO Status: [facility] CL Study: SCREENING MAMM (CAD), BILAT Date of Exam: 11/23/16 Exam# [id number] Ordering Dr: Paulo Hilario MD MAMMOGRAPHY - [...] delay biopsy of a clinically suspicious abnormality. [id number] Electronically Signed: Riccardo Vazquez MD a t 10:53 EDT Tel [phone], Service support , CC: Mary Hilario MD; Katie Fernández DO Mold Swabber: Signed 03-Sep-2016 Soft Tissue Neck WITH Contrast Result: Comments: See Note; NOTES: [facility] Imaging Services [address] [place], [place] [address] [address] Verdana 4d Soft Tissue Neck WITH Contrast MR#: [id number] Acct: [id number] Name: Siobhan BROWN Rep #: [id number] : 1950 F 65 From: Nanette Miranda MD PCP: Katie Fernández DO Status: REG CLI Study: Soft Tissue Neck WITH Contrast Date of Exam: 09/03/16 Exam# [id number] Ordering Dr: Katie Breen DO STUDY: CT [...] FINDINGS: Normal bilateral parotid glands. Normal bilateral credit balance specialist spaces. Normal bilateral parapharyngeal spaces. Normal bilateral [...] Service support , CC: Katie Fernández DO Mold Swabber: Signed 23-Nov-2015 Unilat Rt Diag Digital AND CAD Result: Comments: See Note; NOTES: [facility] Imaging Services [address] [place] [address] Verdana 4d Unilat Rt Diag Digital AND CAD MR#: [id number] Acct: [id number] Name: LISETTE BROWN Rep #: [id number] : 1950 F 65 From: Nanette Miranda MD PCP: Олег Santos Status: REG CLI Study: Unilat Rt Diag Digital AND CAD Date of Exam: 11/23/15 Exam# [id number] Ordering Dr: Mary Hilario MD MAMMOGRAPHY - [...] at 9:33 EDT Tel , Service support [phone], CC: Mary Hilario MD; Олег Santos Mold Swabber: Signed 21-Nov-2015 Bilat Scrn Digital AND CAD Result: Comments: See Note; NOTES: [facility] Imaging Services [address] [place] [address] Verdana 4d Bilat Scrn Digital AND CAD MR#: [id number] Acct: [id number] Name: DINORA BROWN Rep #: [id number] : 1950 F 65 From: Nanette Miranda MD PCP: Олег Santos Status: REG CLI Study: Bilat Scrn Digital AND CAD Date of Exam: 11/21/15 Exam# [id number] Ordering Dr: Mary Hilario MD MAMMOGRAPHY - [...] delay biopsy of a clinically suspicious abnormality. [id number] Electronically Signed: Nanette Miranda MD at 16:57 EDT Tel , Service support [phone], CC: Mary Hilario MD; Олег Santos Mold Swabber: Signed 20-Sep-2015 Bone Survey Comp(Axial AND Append) Result: Comments: See Note; NOTES: [facility] Imaging Services [address] [place] [address] [place] [address] 4d Bone Survey Comp(Axial AND Append) MR#: [id number] Acct: [id number] Name: LISETTE BROWN Rep #: [id number] : 1950 F 65 From: Germán Ashford MD PCP: Jewell Coffman DO Status: REG CLI Study: Bone Survey Comp(Axial AND Append) Date of Exam: 09/20/15 Exam# [id number] Ordering Dr: Mateusz Pham DO STUDY: X-RAY [...] MD at 16:50 EDT , Service support [phone], RAD/Bone Survey Comp(Axial AND Append) IMPRESSION: Degenerat anahy changes. No definite focal destructive/lytic lesions. Electronically Signed: Germán Ashford MD at 16:50 EDT , Service support [phone], CC: Jewell Coffman DO; Mateusz Pham D.O. Mold Swabber: Signed 20-Sep-2015 Spleen Result: Comments: See Note; NOTES: [facility] Imaging Services [address] [place] [address] Verdana 4d Spleen MR#: [id number] Acct: [id number] Name: TARAFRANKLINYrnLISETTE M Re p #: [id number] : 1950 F 65 From: Riccardo Vazquez MD PCP: Jewell Coffman DO Status: REG CLI Study: Spleen Date of Exam: 09/20/15 Exam# [id number] Ordering Dr: Mateusz Pham DO STUDY: A [...] Vazquez MD at 14: 09 EDT Tel [phone], Service support [phone], CC: Jewell Coffman DO; Mateusz Pham D.O. Mold Swabber: Signed 09-Sep-2015 EKG (97046) Comments: ekg showed normal sinus rhythym, normal axis, no acute st/t wave changes Result: [MEASUREMENTS ANALYSIS] Date of Test: 09/09/2015 12:22:24; Heart Rate: 65; MN Interval: 168; QRS: 82; QT Interval: 392; Corrected QT Interval (QTc): 400; P Wave [place]: 36; QRS Wave [place]: 24; T Wave [place]: 22; Blood Pressure: 102/62 [ECG DIAGNOSTIC STATEMENTS] Date of Test: 09/09/2015 12:22:24; Summary: Sinus Rhythm WITHIN NORMAL LIMITS 08-Feb-2015 Operative Report Result: Comments: See Note; NOTES: [facility] Medical Records Department [address] [place] [address] Operative Report MR#: [id number] Acct: [id number] Name: DINORA BROWN Rep #: [id number] : 1950 64 From: Jan Yoder MD [...] Siobhan Evans C: Jewell Coffman DO T: [facility] JOB: [id number] 02/08/15 1434 <Electronically signed by Jan Yoder MD> Date ___ Jan Yoder MD Cosigner Signature (If Indicated): Date CC: Jewell Coffman DO; Jan Gzumanleo Date Dictate d: 02/08/15812 Date Transcribed: 02/08/15812 Mold Swabber: Signed 17-Nov-2014 Garett Carcamo Digital AND CAD Result: Comments: See Note; NOTES: [facility] Imaging Services [address] [place] [address] Breast Imaging Report MR#: [id number] Acct: [id number] Name: LISETTE BROWN Rep #: [id number] : 1950 F 64 From: Riccardo Vazquez MD PCP: Jewell Coffman DO Status: REG CLI Study: Garett Carcamo Digital AND CAD Date of Exam: 11/17/14 Exam# [id number] Ordering Dr: Mary Hilario MD MAMMOGRAPHY - [...] Riccardo Vazquez MD at 14:50 EDT Tel [phone], Service support [phone], CC: Jewell Coffman DO; Mary Hilario MD Mold Swabber: Signed 05-Jan-2014 PT Discharge Summary Result: Comments: See Note; NOTES: [facility] Physical Therapy [facility] [address] [place], [place] [address] Fax REHABILITATION SERVICES DISCHARGE SUMMARY MR#: [id number] Acct: [id number] Name: LISETTE BROWN Rep #: [id number] : 1950 63 From: Iesha Starr Referring [...] Sincerely, Iesha Starr, PT T: NTS JOB: [id number] <Electronicall y signed by Iesha Starr > 01/05/14 1351 CC: Signed 16-Nov-2013 Garett Scrn Digital & CAD Result: Comments: See Note; NOTES: [facility] Imaging Services [address] [place] [address] Breast Imaging Report MR#: [id number] Acct: [id number] Name: LISETTE BROWN Rep # : [id number] : 1950 F 63 From: Riccardo Vazquez MD PCP: Jewell Coffman DO Status: REG CLI Exam# [id number] Ordering Dr: Mary Hilario MD MAMMOGRAPHY - [...] will be sent to the patient by [facility] within 30 days. Approximately 10% of breast cancers are not detected by mammography. A normal mammogram should not delay biopsy of a clinically suspicious abnormality. Electronically S igned: Riccardo Vazquez MD at 14:47 EDT Tel [phone], Service support [phone], CC: Jewell Coffman DO; Mary Hilario MD Mold Swabber: Signed 14-Aug-2013 Inital Evaluation - PT Result: Comments: See Note; NOTES: [facility] [address] [place] [address]. [address] [place] [address] Fax REHABILITATION SERVICES INITIAL EVALUATION MR#: [id number] Acct: [id number] Name: LISETTE BROWN Rep #: [id number] : 1950 62 From: Iesha Starr Referring [...] a diagnosis of hemiarthrosis of the pelvis. MN OBLEMS: 1. Increased pain. 2. Decreased hip strength. GOALS: 1. Independent with home exercise program. 2. Decrease pain with zes-sb-yweyw to 0/10. 3. Increase left hip strength [...] needed. Iesha Starr, PT T: NTS JOB: [id number] <Electronically signed by Iesha Starr > 0 08/14/13 1426 CC: Signed For Medicare only, by signing this I certify the plan of care. Physicians Signature Date 07-Jul-2013 Hip min 2 Views Result: Comments: See Note; NOTES: [facility] Imaging Services [address] [place] [address] Radiology Report MR#: [id number] Acct: [id number] Name: LISETTE BROWN Rep #: [id number] : 1950 F 62 From: Nakul Hernandez DO PCP: Jewell Coffman DO Status: REG CLI Study: Hip min 2 Views Date of Exam: 07/07/13 Exam# [id number] Ordering Dr: Concha Ford STUDY: X-RAY - [...] D.O. at 21:51 EDT , Service support [phone], RAD/Hip min 2 Views IMPRES LUCIA: Minimal degenerative changes of the left hip. Electronically Signed: Nakul Hernandez D.O. at 21:51 EDT , Service support [phone], CC: Lizz Ford; Jewell Coffman DO Mold Swabber: Signed Family History Unknown Family Member Name [...] kg/m2 Body Surface Area Calculated 1.62 m2 99-Lcf-291272:43 Temperature 98.7 f Comments: Method: Temporal Pulse [...] Surface Area Calculated 1.49 m2 :09 Comments: [facility] and had a glaucoma test donehearing wn [...] Description Value Details :19 HgA1C , Office (36080) HgA1C , Office 5.5 % (Normal) Range: 4.6 - 7.1 :19 Blood Glucose , Office (92792) Blood Glucose , Office 141 (Normal) :15 CBC W/Diff, Automated Comments: [facility] [address] [place], [place], [id number] Absolute Lymph 2.76 {X10_3/ul} (Normal) Range: 0.83-4.51 [...] 4.2-5.4 WBC 7.5 K/mm3 (Normal) Range: 4.4-11.0 80-Qsm-53527:15 Comprehensive Metabolic Profil Comments: [facility] [address] [place], [place], [address] GAP 8 (Normal) Range: 5-15 CO2 25.0 [...] A.D.A. criteria.Please note revised GLUCOSE reference range bhatdmojl93/02/2018. 32-Pvi-96221:15 Lipid Profile Comments: [facility] [address] [place], [address] VLDL 34 mg/dL (Normal) Range: [...] 200-240 mg/dL Borderline >240 mg/dL High Risk 31-Syc-93143:15 Microalb:Creat Ratio,Random UR Comments: PT DIANAO TOOK CONTAINER HOME [facility] [address] [place], [address] MALB:CREAT 6.2 {mg/g_CRE} (Normal) MICROALBUMIN,UR 9.9 mg/L (Normal) UR CREAT 159.00 mg/dL (Normal) 16-Xow-77632:15 Thyroid Stim Hormone (TSH) Comments: [facility] [address] [place], [address] TSH 1.77 {uIU/mL} (Normal) Range: 0.358-3.74 50-Wxm-67237:15 Urinalysis, Complete Comments: PT UTO TOOK CONTAINER HOME WILL RETURN TODAYHow was Urine Obtained? [facility] [address] [place], [id number] MUCUS, URINE 0 SEEN {/hpf} (Normal) BACTERIA [...] CLARITY Sl. Cloudy (Normal) COLOR Yellow (Normal) 88-Vks-04488:15 Vitamin D,25 Hydroxy Comments: [facility] [address] [place], [id number] Vitamin D 25-OH 18.3 ng/mL (Abnormal) Range: 29.95-100.01 Comments: Vitamin D 25(OH) Status Range Deficiency <20 ng/mL (50nmol/L) Insuffciency 20 - 30 ng/mL (50 - 75 nmol/L) Sufficiency 30 - 100 ng/mL (75 - 250 nmol/L) Toxicity >100 ng/mL (>250 nmol/L) 15-Grq-669734:56 Soluble Transferrin Comments: PATIENT NOT FASTINGPERFORMED BY: CB [facility] Phngrv3612 [facility] [id number] BY: [facility] [address] [id number] Receptor (69599) Soluble Transferrin Receptor 27.3 nmol/L (Normal) Range: 12.2-27.3 54-Kyh-335066:56 SPEP (03863) Comments: PATIENT NOT FASTINGPERFORMED BY: [place] 1036170 [facility] [id number] BY: [address] [id number] PDF . (Normal) Please note: SPRCS (Normal) Comments: Protein electrophoresis scan will follow via computer, mail, orcourier delivery. A/G Ratio 0.9 (Normal) Range: 0.7-1.7 Globulin, Total 4.0 g/dL (Abnormal) Range: 2.2-3.9 M-Isaias Not Observed g/dL (Normal) Gamma Globulin 1.8 g/dL (Normal) Range: 0.4-1.8 Beta Globulin 1.2 g/dL (Normal) Range: 0.7-1.3 Apped-3-Yyosjqnp 0.7 g/dL (Normal) Range: 0.4-1.0 Bakpg-9-Iiuxrkxc 0.3 g/dL (Normal) Range: 0.0-0.4 Albumin 3.5 g/dL (Normal) Range: 2.9-4.4 Protein, Total 7.5 g/dL (Normal) Range: 6.0-8.5 :56 [facility] (36131) Comments: PATIENT NOT FASTINGPERFORMED BY: [employer] Yquqhp1002 [facility] [id number] BY: [employer] [id number] PDF . (Normal) Please note: SPRCS (Normal) Comments: Protein electrophoresis scan will follow via computer, mail, orcourier delivery. M-Isaias, % Not Observed % (Normal) Gamma Globulin, U 13.3 % (Normal) Beta Globulin, U 34.4 % (Normal) Pkzmx-1-Luuwsamr, U 10.6 % (Normal) Zzqfg-2-Jptlttal, U 3.5 % (Normal) Albumin, U 38.2 % (Normal) Protein,Total,Urine 9.2 mg/dL (Normal) :56 BUZZ TEST, DIRECT Comments: PATIENT NOT FASTINGPERFORMED BY: [place] 1036170 [facility] [id number] BY: [address] [id number] ([address]) Buzz', Direct Negative (Normal) 08-Abe-189568:56 FOLIC ACID SERUM (51900) Comments: PATIENT NOT FASTINGPERFORMED BY: [place] [id number] [place] Road[place] [id number] BY: [address] [id number] Folate (Folic Acid), Serum 13.1 ng/mL (Normal) Comments: A serum folate concentration of less than 3.1 ng/mL isconsidered to represent clinical deficiency. 00-Din-081848:56 Methymalonic Acid, Serum Comments: PATIENT NOT FASTINGPERFORMED BY: [place] [id number] [place] [address] [id number] BY: [address] [id number] (74[address]) Disclaimer: SPRCS (Normal) Comments: This test was developed and its performance characteristicsdetermined by [employer]. It has not been cleared or approvedby the Food and Drug Administration. Methylmalonic Acid, Serum 227 nmol/L (Normal) Range: 0-378 06-Ieb-672781:56 VITAMIN B-12 Comments: PATIENT NOT FASTINGPERFORMED BY: [place] [id number] [facility] [place] [id number] BY: [address] [id number] (CYANOCOBALAMIN) (30314) Vitamin B12 663 pg/mL (Normal) Range: 232-1245 72-Awv-471754:56 RETICULOCYTE COUNT MANUL Comments: PATIENT NOT FASTINGPERFORMED BY: [place] 3146470 [facility] [id number] BY: [address] [id number] (59165) Reticulocyte Count 1.8 % (Normal) Range: 0.6-2.6 82-Oqq-567722:56 LDH (LD) (LACTATE Comments: PATIENT NOT FASTINGPERFORMED BY: [place] [id number] [facility] [id number] BY: [address] [id number] DEHYDROGENASE) (81548) LDH 218 [iU]/L (Normal) Range: 119-226 91-Xcj-179448:56 IRON BINDING CAPACITY Comments: PATIENT NOT FASTINGPERFORMED BY: [address] [id number] BY: [address] [id number] (TIBC) (08707) Iron Saturation 17 % (Normal) Range: 15-55 Iron 69 ug/dL (Normal) Range: 27-139 UIBC 338 ug/dL (Normal) Range: 118-369 Iron Bind.Cap.(TIBC) 407 ug/dL (Normal) Range: 250-450 38-Qvu-728054:56 FERRITIN (69895) Comments: PATIENT NOT FASTINGPERFORMED BY: [place] [id number] [facility] [id number] BY: [address] [id number] Ferritin, Serum 21 ng/mL (Normal) Range: 15-150 72-Ill-062574:56 HAPTOGLOBIN (10894) Comments: PATIENT NOT FASTINGPERFORMED BY: [place] 3146470 [facility] [id number] BY: [address] [id number] Haptoglobin 89 mg/dL (Normal) Range: 34-200 60-Bws-086438:56 CBC, PLATELETS & AUT DIFF Comments: PATIENT NOT FASTINGPERFORMED BY: [place] [id number] [facility] [id number] BY: [address] [id number] (86537) Immature Grans (Abs) 0.0 {x10E3/uL} (Normal) Range: [...] (Normal) Range: 3.4-10.8 :07 HgA1C , Office (90364) HgA1C , Office 5.6 % (Normal) Range: 4.6 - 7.1 :07 Blood Glucose , Office (45133) Blood Glucose , Office 170 (Normal) :36 CBC W/Diff, Automated Comments: [facility] [address] [place], [address] Absolute Lymph 3.43 {X10_3/ul} (Normal) [...] Profil Comments: PLEASE ADD PREALBUMIN TO LIPID,TSH,CMP [address] [facility], [address] GAP 10 (Normal) Range: 5-15 CO2 24.0 [...] Lipid Profile Comments: PLEASE ADD PREALBUMIN TO LIPID,TSH,[address] [place], [place], [phone](163) VLDL 21 mg/dL (Normal) Range: 5-40 LDL [...] :36 Prealbumin Comments: PLEASE ADD PREALBUMIN TO LIPID,TSH,[address] [place], [place], [address] PREALBUMIN 30.5 mg/dL (Normal) Range: 20.0-40.0 :36 Thyroid Stim Hormone (TSH) Comments: PLEASE ADD PREALBUMIN TO LIPID,TSH,CMP [facility]69[facility]qu[facility] [address] [place], [address] TSH 2.39 {uIU/mL} Range: 0.358-3.74 (Normal) :3 ASPIRATION (SLIDES ONLY) See Note (Normal) Comments: [facility] [address] [place], [address] 0 Comments: Patient: LISETTE BROWN : 1950 (66/F) Acct Num: [id number] Phys: Mk SALVADOR,George Unit Num: [id number] Loc: LABSPEC Specimen: [id number] Received: 09/20/161606 Spec Ty pe: ASPIRATION TISSUES TISSUES: ADDENDUM Addendum Number 1 This addendum is added to incorporate an outside pathology consultation report. The case was examined at [facility] (#[id number]) and the following diagnosis was rendered. Right [...] noted. Please make reference to previous specimen ([id number]) right cervical lymph node,FNA with diagnosis of [...] for staining. / RY:cc 09/21/16 TC:0 CPT: 43326 CYTOLOGY STUDY Slides are reviewed. DIAGNOSIS CYTOLOGY Right thyroid nodule, ultrasound-guided FNA (smears): Malignant cells present derived from papillary thyroid carcinoma. SJ:lars 09/24/16 HEADER OPERATION: Ultrasound guided righ t thyroid FNA PRE-OP DIAGNOSIS: Right thyroid nodule TISSUE SUBMITTED: Right thyroid (12 slides) Signed Mariano Contreras 09/24/16 <signature on file> 8-Gap-265073:50 CBC W/Diff, Auto - EPLAB Comments: Order Date: 03/29/16Order Info: [id number] - *CBC w/Diff - oncology ONLYAt [facility] [place] Medical Oncologypatients receive CBC w/auto Differential ONLY. Physicianwill place an order fo Only r a manual differential or Pathologistreview at his discretion. [facility] OUTPATIENT [facility]. [address] [place] [address] [address] VENDING SERVICE TECHNICIAN: JASBIR REINA DO PH:[phone] Jewish Hospital [address] [place], [address] Absolute Lymph 1.92 {X10_3/uL} (Normal) [...] 4.2-5.4 WBC 8.9 K/mm3 (Normal) Range: 4.4-11.0 8-Bgt-105052:50 Comprehensive Metabolic Profil Comments: Order Date: 03/29/16Order Info: [id number] - *CMP Complete Metabolic PanelOrder Info: [id number] - *Uric Acid BloodOrder Info: 2532-0 - *LDH -LDH (Lactate Dehydrogenase)Serial Specimen #1, #2 or #3? [facility] [address] [place], [place], [address] GAP 5 (Normal) Range: 5-15 CO2 27.0 [...] CHI + Prot Elec, Serum 1495Order Info: [id number] - *[place]DA - [place] Lamda Light ChainsIs Patient Fasting? [facility] (refer to report for specific site)refe r to report for address and phone number NOTE: Comment (Normal) Comments: Protein electrophoresis scan will follow via computer,mail, or program director/traffic director delivery. CHI RESULT,S Comment (Normal) Comments: No monoclonality detected. A/G RATIO 0.9 (Normal) Range: 0.7-1.7 GLOBULIN, TOTAL 4.2 g/dL (Abnormal) Range: 2.2-3.9 M-SPIKE g/dL (Normal) Comments: Not Observed GAMMA GLOBULIN 1.9 g/dL (Abnormal) Range: 0.4-1.8 BETA GLOBULIN 1.2 g/dL (Normal) Range: 0.7-1.3 QJNPY-3-XWLY 0.9 g/dL (Normal) Range: 0.4-1.0 VRKOY-8-AHTI 0.3 g/dL (Normal) Range: 0.0-0.4 ALBUMIN 3.7 g/dL (Normal) Range: 2.9-4.4 IMMUNOGL M 511 mg/dL (Abnormal) Range: 26-217 IMMUNO A 252 mg/dL (Normal) Range: 87-352 IMMUNO G 1574 mg/dL (Normal) Range: 700-1600 PROTEIN,TOTAL 7.9 g/dL (Normal) Range: 6.0-8.5 :50 [place] Lambda Light Chains Comments: Order Date: 03/29/16Order Info: [id number] - *IMEL CHI + Prot Elec, Serum 1495Order Info: 11832-0 - *[place]DA - [place] Lamda Light ChainsIs Patient Fasting? [facility] (refer to report for specific site)refe r to report for address and phone number KAPPA/LAMBDA % 1.06 (Normal) Range: 0.26-1.65 Comments: Performed at: - [facility] [address] [id number] Director: Jan Wilcox PhD, Phone: [phone] FR LAMBDA LT CH 31.7 mg/L (Abnormal) Range: 5.7-26.3 Comments: Please note reference interval change FR KAPPA LT CHN 33.6 mg/L (Abnormal) Range: 3.3-19.4 Comments: Please note reference interval change 1-Gqi-184812:50 LDH 181 U/L (Normal) Comments: Order Date: 03/29/16Order Info: [id number] - *CMP Complete Metabolic PanelOrder Info: 3084-1 - *Uric Acid BloodOrder Info: 2532-0 - *LDH -LDH (Lactate Dehydrogenase)Serial Specimen #1, #2 or #3? [address] [place] [address] [place], [place], [address] Range: 84-246 5-Lrh-919725:50 Uric Acid Comments: Order Date: 03/29/16Order Info: [id number] - *CMP Complete Metabolic PanelOrder Info: 3084-1 - *Uric Acid BloodOrder Info: 2532-0 - *LDH -LDH (Lactate Dehydrogenase)Serial Specimen #1, #2 or #3? [address] [place] [address] [place], [place], [address] URIC 7.1 mg/dL Range: 2.6-6.0 (Abnormal) Comments: The drugs N-Acetylcysteine and Metamizole may falsely deressthis assay. ASPIRATION (SLIDES ONLY) See Note (Normal) Comments: [facility] [address] [place], [place], [address] 70:00 Comments: Patient: LISETTE BROWN : 1950 (66/F) Acct Num: [id number] Phys: Mk SALVADOR,George Unit Num: [id number] Loc: LABSPEC Specimen: [id number] Received: 09/12/161345 Spec Ty pe: ASPIRATION TISSUES TISSUES: ADDENDUM Addendum Number 1 This addendum is added to incorporate an outside pathology consultation report. The case was examined at [facility] (#[id number]) and the following diagnosis was rendered. Right cervical lymph nodes, fine needle aspiration: Positive for malignant cells. Metastatic carcinoma, consistent with miguel g primary. Please see complete above mentioned consultation report in EMR Addendum Signed Jasbir [facility] 10/05/16 <signature on fi le> COMMENT Immediate cytologic evaluation to determine adequacy is not applicable. Immunohistochemistry ([id number]) supports the above diagnosis. An excisional/incisional biopsy is recommen ded for further classification. Case has been reviewed in consultation with Dr. Contreras who concurs with the abovediagnosis. IDC:SJ CYTOLOGY GROSS Received are 12 smears labeled with the patient 's name and designated per the requisition as FNA right cervical lymph node. Submitted for staining. 09/12/16 TC:0 CPT: 09092 CYTOLOGY STUDY Slides are reviewed. DIAGNOSIS CYTOLOGY Rig ht cervical lymph nodes, fine needle aspiration (smears): Metastatic carcinoma. AM:lars 09/13/16 HEADER OPERATION: Ultrasound-guided fine needle aspiration right cervical lymph node PRE-OP DIAGNOSIS: Enlarged lymph nodes TISSUE SUBMITTED: FNA right cervical lymph nodes (12 slides) Signed Jasbir [facility] 09/14/16 <signature on file> IMMUNOHISTOCHEMISTRY See Note (Normal) Comments: [facility] [address] [place], [place], [address] 70:00 Comments: Patient: LISETTE BROWN : 1950 (66/F) Acct Num: [id number] Phys: Mk SALVADOR,George Unit Num: [id number] Loc: LABSPEC Specimen: [id number] Received: 09/13/16 - 1228 Spec T ype: IMMUNO TISSUES TISSUES: SPECIMEN INFORMATION: Tissue Source: FNA right cervical lymph nodes Clinical Info: Enlarged lymph nodes Specimen Number: [id number] CPT code: 41544, 08491 x3 METHODOLOGY: Deparaffinized sections of prefer/formalin-fixed tissue [...] developed and their performance characteristics determined by [facility]. They may not have been [...] with the abovediagnosis. IDC: PHYSICIAN AND INSTITUTION [place] [id number] Signed Jasbir [facility] 09/14/16 <signature on file> 9-Gnj-772278:05 Systemic Lupus Profile A Comments: PATIENT NOT FASTINGPERFORMED BY: [facility] Udesgv3280 [facility] [id number] Anti-DNA (DS) Ab Qn 6 {IU/mL} (Normal) Range: 0-9 Comments: Negative <5 Equivocal 5 - 9 Positive >9 Sjogren's Anti-SS-B <0.2 {AI} (Normal) Range: 0.0-0.9 Sjogren's Anti-SS-A 1.2 {AI} Range: 0.0-0.9 (Abnormal) Antichromatin Antibodies <0.2 {AI} (Normal) Range: 0.0-0.9 RA Latex Turbid. <10.0 {IU/mL} Range: 0.0-13.9 (Normal) Gibson Antibodies <0.2 {AI} (Normal) Range: 0.0-0.9 SEWING TECHNIQUES DEMONSTRATOR Antibodies <0.2 {AI} (Normal) Range: 0.0-0.9 Written Authorization WAR (Normal) Comments: PATIENT NOT FASTINGPERFORMED BY: [facility]6370 [facility] [id number] :05 Comments: Written Authorization Received.Authorization received from HAFSA RIOJAS [id number] by Elaina Louis 2-Stf-221701:05 CMV ANTIBODY (23287) Comments: PATIENT NOT FASTINGPERFORMED BY: [facility]6370 [facility] [id number] Cytomegalovirus (CMV) Ab, IgG <0.60 U/mL (Normal) Range: 0.00-0.59 Comments: Negative <0.60 Equivocal 0.60 - 0.69 Positive >0.69 :05 CMV IGM ANTBDY (83171) Comments: PATIENT NOT FASTINGPERFORMED BY: [facility]6370 [facility] [id number] Cytomegalovirus (CMV) Ab, IgM <30.0 AU/mL (Normal) Range: 0.0-29.9 Comments: Negative <30.0 Equivocal 30.0 - 34.9 Positive >34.9 A positive result is generally indicative of acute infection, reactivation or persistent IgM production. :05 EB ANTIBODY VIRAL CAPSID Comments: PATIENT NOT FASTINGPERFORMED BY: [facility]6[address] [facility] [id number] (53542) X2 Interpretation: SPRCS (Normal) Comments: EBV Interpretation [...] <36.0 Equivocal 36.0 - 43.9 Positive >43.9 9-Wht-998954:05 LDH (LD) (LACTATE DEHYDROGENASE) Comments: PATIENT NOT FASTINGPERFORMED BY: [employer] [facility] [id number] (41514) LDH 195 [iU]/L (Normal) Range: 119-226 2-Uji-705599:05 JOSE ALEJANDRO (ANTINUCLEAR ANTIBODY) Comments: PATIENT NOT FASTINGPERFORMED BY: [facility]FlowPres[facility]eman HospitalRcllkx5909 [facility] [id number] (10591) JOSE ALEJANDRO Direct Positive (Abnormal) 3-Dss-570709:05 C-REACTIVE PROTEIN (30171) Comments: PATIENT NOT FASTINGPERFORMED BY: [employer] [facility] [id number] C-Reactive Protein, Quant 8.8 mg/L (Abnormal) Range: 0.0-4.9 2-Jnd-652706:05 SED RATE ERYTHROCYTE (93079) Comments: PATIENT NOT FASTINGPERFORMED BY: [facility]FlowRaritan Bay Medical CenterFnatjn0691 [facility] [id number] Sedimentation Rate-Westergren 20 mm/h (Normal) Range: 0-40 0-Gia-928109:05 METABOLIC PANEL, COMPREHENSIVE Comments: PATIENT NOT FASTINGPERFORMED BY: [employer] [facility] [id number] (23847) ALT (SGPT) 9 [iU]/L (Normal) Range: 0-32 [...] (Abnormal) Range: 65-99 :26 HgA1C , Office (83587) HgA1C , Office 5.4 % (Normal) Range: 4.6 - 7.1 :26 Blood Glucose , Office (66658) Blood Glucose , Office 134 (Normal) :28 CBC W/Diff, Automated Comments: [facility] [address] [place], [place], [address] Absolute Lymph 2.37 {X10_3/ul} (Normal) Range: 0.83-4.51 [...] 4.2-5.4 WBC 9.5 K/mm3 (Normal) Range: 4.4-11.0 30-Koq-73570:28 Comprehensive Metabolic Profil Comments: [facility] [address] [place], [address] GAP 8 (Normal) Range: 5-15 CO2 26.0 [...] 7-18 GLU 96 mg/dL (Normal) Range: 70-110 51-Sss-18964:28 Lipid Profile Comments: [facility] [address] [place], [address] VLDL 26 mg/dL (Normal) Range: [...] 200-240 mg/dL Borderline >240 mg/dL High Risk 82-Eee-43384:28 Microalb:Creat Ratio,Random UR Comments: [facility] [address] [place], [address] MALB:CREAT 8.4 {mg/g_CRE} (Normal) MICROALBUMIN,UR 12.1 mg/L (Normal) UR CREAT 144.00 mg/dL (Normal) 49-Ipw-19894:28 Thyroid Stim Hormone (TSH) Comments: [facility] [address] [place], [address] TSH 1.74 {uIU/mL} (Normal) Range: 0.358-3.74 :28 Vitamin D,25 Hydroxy Comments: [facility] [address] [place], [address] Vitamin D 25-OH 45.5 ng/mL (Normal) Comments: Vitamin D 25(OH) Status Range Deficiency <20 ng/mL (50nmol/L) Insuffciency 20 - 30 ng/mL (50 - 75 nmol/L) Sufficiency 30 - 100 ng/mL (75 - 250 nmol/L) Toxicity >100 ng/mL (>250 nmol/L) :05 HgA1C , Office (79930) HgA1C , Office 5.6 % (Normal) Range: 4.6 - 7.1 :05 Blood Glucose , Office (35423) Blood Glucose , Office 134 (Normal) :42 CBC W/Diff, Automated Comments: [facility] [address] [place], [address] BASOPHIL 2 % (Abnormal) Range: 0-1 EOS [...] Range: 4.4-11.0 :42 Comprehensive Metabolic Profil Comments: [facility] [address] [place], [place], [address] GAP 9 (Normal) Range: 5-15 CO2 26.0 [...] (Normal) Range: 70-110 :42 Lipid Profile Comments: [facility] [address] [place], [place], [address] VLDL 28 mg/dL (Normal) Range: 5-40 LDL [...] High Risk :42 Microalb:Creat Ratio,Random UR Comments: [facility] [address] [place], [place], [address] MALB:CREAT 5.3 {mg/g_CRE} (Normal) MICROALBUMIN,UR 7.8 mg/L (Normal) UR CREAT 146.00 mg/dL (Normal) :42 Vitamin B12 533 pg/mL (Normal) Comments: [facility] [address] [place], [place], [address] Range: 211-911 :42 Vitamin D,25 Hydroxy Comments: [facility] [address] [place], [place], [address] Vitamin D 25-OH 29.4 ng/mL (Normal) Comments: Vitamin D 25(OH) Status Range Deficiency <20 ng/mL (50nmol/L) Insuffciency 20 - 30 ng/mL (50 - 75 nmol/L) Sufficiency 30 - 100 ng/mL (75 - 250 nmol/L) Toxicity >100 ng/mL (>250 nmol/L) 75-Lyl-831074:21 CBC W/Diff, Auto - EPLAB Comments: At [facility] Outpatient [facility] [place], [facility] Medical Oncologypatients receive CBC w/auto Differential ONLY. Physicianwill place an order for a manual differential or Pathologistreview at his discretion. [facility]. [address] [address] [place] [address] VENDING SERVICE TECHNICIAN: JASBIR REINA DO PH:[phone] Doctors Hospital [address] [place], [address] Absolute Lymph 2.05 {X10_3/uL} (Normal) [...] 4.2-5.4 WBC 8.7 K/mm3 (Normal) Range: 4.4-11.0 24-Kpw-692255:19 Ecbq-7-Hobeypyinluoj, S Comments: Order Date: 04/20/16 Order #: [id number] (refer to report for specific site)refer to report for address and phone number B2 [id number] 2.3 mg/L (Normal) Range: 0.6-2.4 Comments: Performed at: [facility] LabCo[address] [id number] Director: Jan Wilcox PhD, Phone: [phone] 65-Cqz-401634:19 Comprehensive Metabolic Profil Comments: Order Date: 04/20/16OV Order #: [id number] Specimen #1, #2 or #3? 1 [id number] [facility] Hospital [address] [place], [place], [address] GAP 4 (Abnormal) Range: 5-15 CO2 26.0 [...] 7-18 GLU 96 mg/dL (Normal) Range: 70-110 10-Nmm-893934:19 [place] Lambda Light Chains Comments: Order Date: 04/20/16OV Order #: [id number] (refer to report for specific site)refer to report for address and phone number KAPPA/LAMBDA % 1.09 (Normal) Range: 0.26-1.65 Comments: Performed at: [address] [id number] Director: Jan Wilcox PhD, Phone: [phone] FR LAMBDA LT CH 23.60 mg/L (Normal) Range: 5.71-26.30 FR KAPPA LT CHN 25.70 mg/L (Abnormal) Range: 3.30-19.40 :19 LDH 185 U/L (Normal) Comments: Order Date: 04/20/16 Order #: [id number] Specimen #1, #2 or #3? 1 [id number] [facility] Hospital [address] [place], [place], [address] Range: 84-246 :19 Protein Electro.Ur-Random Comments: Order Date: 04/20/16 Order #: [id number] (refer to report for specific site)refer to report for address and phone number NOTE Comment (Normal) Comments: Protein electrophoresis scan will follow via computer,mail, or program director/traffic director delivery.Performed at: [address] [id number] Director: Jan Wilcox PhD, Phone: [phone] M-SPIKE,U % (Normal) Comments: Not Observed GAMMA GLOB,U 29.8 % (Normal) BETA GLOB,U 36.8 % (Normal) ICNYA-0-NZZM,U 12.1 % (Normal) RIZSR-0-EJZH,U 1.9 % (Normal) ALBUMIN,UR 19.5 % (Normal) PROTEIN,UR 13.7 mg/dL (Normal) :19 Protein Electroph, S Comments: Order Date: 04/20/16 Order #: [id number] (refer to report for specific site)refer to [...] electrophoresis scan will follow via computer,mail, or program director/traffic director delivery. A/G RATIO 0.8 (Normal) Range: 0.7-1.7 [...] (Normal) Range: 6.0-8.5 :44 HgA1C , Office (05144) Comments: Do not charge - taken by mistake!!!!! HgA1C , Office 5.8 % (Normal) Range: 4.6 - 7.1 :47 CBC W/Diff, Automated Comments: [facility] [address] [place], [place], [address] ; non-emergent till apt Absolute Lymph 2.38 [...] Range: 4.4-11.0 :47 Comprehensive Metabolic Profil Comments: [facility] [address] [place], [place], [address] ; non-emergent till apt GAP 7 (Normal) [...] (Normal) Range: 70-110 :47 Hemoglobin A1c Comments: [facility] [address] [place], [place], [address] HGB A1C 6.1 % (Normal) Range: 4.2-6.3 :47 Lipid Profile Comments: [facility] [address] [facility] [place], [place], [address] VLDL 28 mg/dL (Normal) Range: 5-40 LDL [...] High Risk :47 Microalb:Creat Ratio,Random UR Comments: [facility] [address] [facility] [place], [address] MALB:CREAT 6.6 {mg/g_CRE} (Normal) MICROALBUMIN,UR 6.4 mg/L (Normal) UR CREAT 96.50 mg/dL (Normal) 0-Nye-226786:31 CBC W/Diff, Automated Comments: PERF,SMEAR PER DOCTORS ORDERWThe Jewish Hospital [address] [facility] [place], [address] PATH REV Reviewed (Normal) Comments: [...] 4.2-5.4 WBC 7.9 K/mm3 (Normal) Range: 4.4-11.0 0-Pql-675253:31 Miscellaneous Lab Procedure Comments: Test(s) Ordered: FLOW CYTOMETRY [id number] 1 HEP./1 [facility] [address] [place], [address] [facility] Comments: TEST RESULT [...] test wasdeveloped and its performance characteristics determinedby [facility]. It has not been cleared or approved by the U.S.Food and Drug Administratio n. The FDA has determined thatsuch clearance or approval is not necessary. This test isused for clinical purposes. It should not be regarded asinvestigational or for research. TESTING PERFORMED AT [facility]. ORIGINAL REPORT ON FILE IN LAB CONTAINS ADDITIONAL TEST SITE INFORMATION. :31 Uric Acid Comments: [facility] [address] [place], [address] URIC 7.3 mg/dL (Abnormal) Range: 2.6-6.0 Comments: The drugs N-Acetylcysteine and Metamizole may falsely deressthis assay. :52 Mmmo-6-Aunnsxbuzqefi, S Comments: [facility] (refer to report for specific site)refer to report for address and phone number B2 [id number] 1.9 mg/L (Normal) Range: 0.6-2.4 :52 Comprehensive Metabolic Profil Comments: Serial Specimen #1, #2 or #3? 1[facility] [address] [place], [place], [address] GAP 7 (Normal) Range: 5-15 CO2 26.0 [...] electrophoresis scan will follow via computer,mail, or program director/traffic director delivery. CHI RESULT,S Comment (Normal) Comments: No [...] - 1.3 >6 months 0.7 - 1.3 KHVMT-8-TRVR 0.9 g/dL (Normal) Range: 0.4-1.2 Comments: Effective September 26, 2015 the reference interval for Xmzhn-4-Fhnbxaee will be changing to: 0 - 30 days Not Estab. >30 days 0.4 - 1.0 FWEGE-9-ODGA 0.3 g/dL (Normal) Range: 0.1-0.4 Comments: Effective September 26, 2015 the reference interval for Yyyni-6-Dvgibgdw will be changing to: 0 - 30 [...] PROTEIN,TOTAL 7.5 g/dL (Normal) Range: 6.0-8.5 :52 [place] Lambda Light Chains Comments: Is Patient Fasting? [facility] (refer to report for specific site)refer to report for address and phone number KAPPA/LAMBDA % 0.95 (Normal) Range: 0.26-1.65 Comments: Performed at: [facility] [address] [id number] Director: Jan Wilcox PhD, Phone: [phone] FR LAMBDA LT CH 22.66 mg/L (Normal) Range: 5.71-26.30 FR KAPPA LT CHN 21.46 mg/L (Abnormal) Range: 3.30-19.40 :52 LDH 178 U/L (Normal) Comments: Serial Specimen #1, #2 or #3? 1[facility] [address] [place], [place], [address] Range: 84-246 :52 Protein Electro.Ur-Random Comments: Is Patient Fasting? [facility] (refer to report for specific site)refer to report for address and phone number NOTE Comment (Normal) Comments: Protein electrophoresis scan will follow via computer,mail, or program director/traffic director delivery. M-SPIKE,U (Normal) Comments: Not Observed GAMMA GLOB,U 10.5 % (Normal) BETA GLOB,U 31.2 % (Normal) TTDTJ-7-MZOR,U 18.4 % (Normal) JFWQU-1-UJSE,U 10.9 % (Normal) ALBUMIN,UR 28.9 % (Normal) PROTEIN,UR 12.1 mg/dL (Normal) :49 CBC W/Diff, Auto - EPLAB Comments: At [facility] Outpatient [facility] Medical Oncologypatients receive CBC w/auto Differential ONLY. Physicianwill place an order for a manual differential or Pathologistreview at his discretion. [facility] OUTPATIENT [facility]. [address] [place] [address] [place] [address] VENDING SERVICE TECHNICIAN: JASBIR REINA DO PH:[phone] Doctors Hospital [address] [place], [address] Absolute Lymph 2.75 {X10_3/uL} (Normal) [...] Range: 4.4-11.0 :37 CBC W/Diff, Automated Comments: [facility] [address] [place], [address] Absolute Lymph 2.98 {X10_3/ul} (Normal) [...] Range: 4.4-11.0 :37 Comprehensive Metabolic Profil Comments: [facility] [address] [place], [place], [address] ; will review at 09/08 GAP 8 [...] (Normal) Range: 70-110 :37 Hemoglobin A1c Comments: [facility] [address] [place], [place], [address] HGB A1C 5.9 % (Normal) Range: 4.2-6.3 :37 Immunofixation Urine Comments: [facility] (refer to report for specific site)refer to report for address and phone number CHI Urine Comment (Normal) Comments: No monoclonality detected.Performed at: [facility] [address] [id number] Director: Jan Wilcox PhD, Phone: [phone] :37 Immunofixation, Serum Comments: [facility] (refer to report for specific site)refer to report for address and phone number CHI RESULT,S Comment (Normal) Comments: No monoclonality detected. IMMUNOGL M 583 mg/dL (Abnormal) Range: 26-217 IMMUNO A 218 mg/dL (Normal) Range: 87-352 IMMUNO G 1451 mg/dL (Normal) Range: 700-1600 :37 [place] [employer] Chains Comments: [facility] (refer to report for specific site)refer to report for address and phone number; ok til apt KAPPA/LAMBDA % 0.92 (Normal) Range: 0.26-1.65 FR LAMBDA LT CH 24.29 mg/L (Normal) Range: 5.71-26.30 FR KAPPA LT CHN 22.34 mg/L (Abnormal) Range: 3.30-19.40 :37 Lipid Profile Comments: [facility] [address] [place], [place], [address] VLDL 33 mg/dL (Normal) Range: 5-40 LDL [...] High Risk :27 CBC W/Diff, Automated Comments: [facility] [address] [place], [place], [address] Absolute Lymph 2.70 {X10_3/ul} (Normal) Range: 0.83-4.51 [...] 4.2-5.4 WBC 8.2 K/mm3 (Normal) Range: 4.4-11.0 04-Ddt-57609:27 Comprehensive Metabolic Profil Comments: [facility] [address] [place], [place], [address] GAP 5 (Normal) Range: 5-15 CO2 27.0 [...] (Normal) Range: 70-110 :27 Hemoglobin A1c Comments: [facility] [address] [place], [address] HGB A1C 5.8 % (Normal) Range: 4.2-6.3 :27 Lipid Profile Comments: [facility] [address] [place], [address] VLDL 35 mg/dL (Normal) Range: 5-40 [...] High Risk :27 Microalb:Creat Ratio,Random UR Comments: [facility] [address] [place], [address] MALB:CREAT 5.1 {mg/g_CRE} (Normal) MICROALBUMIN,UR 5.3 mg/L (Normal) UR CREAT 103.00 mg/dL (Normal) :27 Uric Acid Comments: [facility] [address] [place], [address] URIC 7.7 mg/dL (Abnormal) Range: 2.6-6.0 Comments: ADDENDA: non-emergent till apt 83-Wxe-50716:00 COLON BIOPSY (CHOOSE See Note (Normal) Comments: [facility] [address] [place], [address] ; ordered by Dr. Yoder SITE) Comments: Patient: LISETTE BROWN : 1950 (64/F) Acct Num: [id number] Phys: Jan Ydoer Unit Num: [id number] Loc: EN Specimen: [id number] Received: 02/08/15 - 30 Spec Type: COL [...] one cassette. / ANTONIA:stephanie 02/08/15 TC:1 CPT: 07510 HEADER OPERATION: Elroy noscopy PRE-OP DIAGNOSIS: Screening TISSUE SUBMITTED: Sigmoid colon polyp, biopsy MICROSCOPIC DESCRIPTION Slides are reviewed. MICROSCOPIC DIAGNOSIS Sigmoid colon polyp, biopsy: Fr agments of hyperplastic polyp. ANTONIA:stephanie 02/09/15 Signed Mariano Contreras 02/09/15 <signature on file> 8-Jqa-444267:54 JOSE ALEJANDRO (ANTINUCLEAR ANTIBODY) Comments: PATIENT NOT FASTINGPERFORMED BY: Appriss6370 [facility] [id number] BY: [employer] [id number] (34887) JOSE ALEJANDRO Direct Negative (Normal) 4-Yut-527895:54 CCP ANTIBODY (61285) Comments: PATIENT NOT FASTINGPERFORMED BY: Appriss6370 [facility] [id number] BY: [employer] [id number] CCP Antibodies IgG/IgA 4 {units} (Normal) Range: 0-19 Comments: Negative <20 Weak positive 20 - 39 Moderate positive 40 - 59 Strong positive >59 3-Mwl-532369:54 RHEUMATOID FACTOR-QUANT Comments: PATIENT NOT FASTINGPERFORMED BY: [employer] Lxqehm4927 [facility] [id number] BY: [employer] [id number] Information: [id number],L11209 (90927) RA Latex Turbid. 8.1 {IU/mL} (Normal) Range: 0.0-13.9 :54 SED RATE ERYTHROCYTE Comments: PATIENT NOT FASTINGPERFORMED BY: LabCoR[facility] CenterQsqrkb0394 [facility] [id number] BY: [employer] [id number] (03417) Sedimentation Rate-Westergren 17 mm/h (Normal) Range: 0-40 :54 C-REACTIVE PROTEIN (93889) Comments: PATIENT NOT FASTINGPERFORMED BY: [facility]CoR[facility] CenterZjybwb2175 [facility] [id number] BY: [employer] [id number] C-Reactive Protein, Quant 4.4 mg/L (Normal) Range: 0.0-4.9 :10 HgA1C , Office (94643) HgA1C , Office 6.1 % (Normal) Range: 4.6 - 7.1 :17 CBC W/Diff, Automated Comments: Test performed at:[facility] [address] [place] [address] Absolute Lymph 3.10 {X10_3/ul} (Normal) [...] 4.2-5.4 WBC 8.6 K/mm3 (Normal) Range: 4.4-11.0 83-Shh-79897:17 Comprehensive Metabolic Profil Comments: Test performed at:[facility] [address] [place] [address] GAP 5 (Normal) Range: 5-15 CO2 27.0 [...] Comments: Please note revised CREATININE reference range uwveneyvg61/22/2015. BUN 14 mg/dL (Normal) Range: 7-18 GLU 101 mg/dL (Normal) Range: 70-110 :17 CHI + Protein Elect, Serum Comments: Is Patient Fasting? YTest performed at:[facility] [address] [place], [place] [id number] NOTE: Comment (Normal) Comments: Protein electrophoresis scan will follow via computer,mail, or program director/traffic director delivery. CHI RESULT,S Comment (Normal) Comments: An apparent polyclonal gammopathy: IgM. [place] and lambdatyping appear increased. A/G RATIO 1.0 (Normal) Range: 0.7-2.0 GLOBULIN, TOTAL 3.5 g/dL (Normal) Range: 2.0-4.5 M-SPIKE (Normal) Comments: Not Observed GAMMA GLOBULIN 1.5 g/dL (Normal) Range: 0.5-1.6 BETA GLOBULIN 1.0 g/dL (Normal) Range: 0.6-1.3 OXNPC-5-AYGT 0.8 g/dL (Normal) Range: 0.4-1.2 MLDPF-4-DQNI 0.2 g/dL (Normal) Range: 0.1-0.4 ALBUMIN 3.4 g/dL (Normal) Range: 3.2-5.6 IMMUNOGL M 1792 637 mg/dL (Abnormal) Range: 40-230 IMMUNO A 1784 194 mg/dL (Normal) Range: 91-414 IMMUNO G 1776 1349 mg/dL (Normal) Range: 700-1600 PROTEIN,TOTAL 6.9 g/dL (Normal) Range: 6.0-8.5 :17 Immunofixation Urine Comments: Is Patient Fasting? YTest performed at:[facility] [address] [place], [place] [address] CHI Urine Comment (Normal) Comments: No monoclonality detected.Performed at: - [facility] [id number] Director: Jan Wilcox PhD, Phone: [phone] Lipid Profile Comments: Test performed at:[facility] [address] [place] [address] VLDL 34 mg/dL (Normal) Range: [...] Risk :17 Uric Acid Comments: Test performed at:[facility] [address] [place] [address] URIC 7.4 mg/dL (Abnormal) Range: 2.6-6.0 Comments: ADDENDA: non-emergent till apt 1-Oja-431562:24 HgA1C , Office (99965) HgA1C , Office 6.2 % (Normal) Range: 4.6 - 7.1 :26 CBC W/Diff, Automated Comments: Test performed at:[facility] [address] [place] [address] Absolute Lymph 3.11 {X10_3/ul} (Normal) [...] :26 Comprehensive Metabolic Profil Comments: Test performed at:[facility] [address] [place] [address] GAP 6 (Normal) Range: 5-15 CO2 29.0 [...] 70-110 :26 Lipid Profile Comments: Test performed at:[facility] [address] [place], [place] [address] VLDL 27 mg/dL (Normal) Range: 5-40 LDL [...] :26 Microalb:Creat Ratio,Random UR Comments: Test performed at:[facility] [address] [place] [address] MALB:CREAT 7.0 {mg/g_CRE} (Normal) MICROALBUMIN,UR 7.4 mg/L (Normal) UR CREAT 105.5 mg/dL (Normal) :26 Uric Acid Comments: Test performed at:[facility] [address] [place] [address] URIC 7.4 mg/dL (Abnormal) Range: 2.6-6.0 06-Wdt-329905:22 HgA1C , Office (89981) HgA1C , Office 6.3 % (Normal) Range: [...] CHOL 209 mg/dL (Abnormal) Comments: <200 mg/dL Gpxfoebyh707-890 mg/dL Borderline>240 mg/dL High Risk 76-Jvo-586787:56 Free K+L Lt Chains,Qn,S Comments: PATIENT NOT FASTINGPERFORMED BY: [employer] Vaykaf3604 [facility] [id number] Free Lambda Lt Chains,S 16.87 mg/L (Normal) Range: 5.71-26.30 [place]/Lambda Ratio,S 0.90 (Normal) Range: 0.26-1.65 Free [place] Lt Chains,S 15.10 mg/L (Normal) Range: 3.30-19.40 20-Ups-400286:56 Protein Electrophoresis, Serum Comments: PATIENT NOT FASTINGPERFORMED BY: AsktourismRaritan Bay Medical CenterWblfkd3151 [facility] [id number] (SPEP) (77041) A/G Ratio 1.0 (Normal) Range: 0.7-2.0 Please note: SPRCS (Normal) Comments: Protein electrophoresis scan will follow via computer, mail, orcourier delivery. Globulin, Total 3.5 g/dL (Normal) Range: 2.0-4.5 M-Isaias Not Observed g/dL (Normal) Gamma Globulin 1.5 g/dL (Normal) Range: 0.5-1.6 Rmagu-8-Njgbnztr 0.9 g/dL (Normal) Range: 0.4-1.2 Beta Globulin 0.9 g/dL (Normal) Range: 0.6-1.3 Xdjby-1-Zpjstyhi 0.2 g/dL (Normal) Range: 0.1-0.4 Albumin 3.6 g/dL (Normal) Range: 3.2-5.6 Protein, Total, Serum 7.1 g/dL (Normal) Range: 6.0-8.5 :56 UPEP (84652) Comments: PATIENT NOT FASTINGPERFORMED BY: [facility]CoRar[facility] Medical CenterVpjpbd6060 [facility] [id number] Please note: SPRCS (Normal) Comments: Protein electrophoresis scan will follow via computer, mail, orcourier delivery. Gamma Globulin, U 45.6 % (Normal) M-Isaias, % Comment: % (Normal) Comments: ATYPICAL GAMMA Mpxli-5-Otskihwc, U 8.7 % (Normal) Beta Globulin, U 33.4 % (Normal) Albumin, U 9.4 % (Normal) Ccwox-3-Ddjjphzq, U 2.9 % (Normal) Protein,Total,Urine 12.0 mg/dL (Normal) Range: 0.0-15.0 11-Jqh-288121:09 HgA1C , Office (91191) HgA1C , Office 6.5 % (Normal) Range: [...] CHOL 180 mg/dL (Normal) Comments: <200 mg/dL Xthimvwgr877-857 mg/dL Borderline>240 mg/dL High Risk :59 LIVER Comments: SPECIMEN HEMOLYZED BID 0.08 mg/dL (Normal) Range: 0.00-0.30 ALT 55 U/L (Normal) Range: 12-78 BIT 0.30 mg/dL (Normal) Range: 0.00-1.00 ALK 65 U/L (Normal) Range: 45-117 AST 32 U/L (Normal) Range: 15-37 ALB 3.5 g/dL (Normal) Range: 3.4-5.0 TPROT 7.5 g/dL (Normal) Range: 6.4-8.2 59-Taf-968518:54 HgA1C , Office (64647) HgA1C , Office 6.4 % (Normal) Range: [...] CHOL 144 mg/dL (Normal) Comments: <200 mg/dL Yznpgiewm763-278 mg/dL Borderline>240 mg/dL High Risk HDL 46 [...] 9.5 {mg/g_CRE} (Normal) :26 HgA1C , Office (15037) HgA1C , Office 6.3 % (Normal) Range: [...] CHOL 132 mg/dL (Normal) Comments: <200 mg/dL Mkyckagto218-368 mg/dL Borderline>240 mg/dL High Risk :17 MIACRE tMICROCREAT 7.5 {mg/g_CRE} (Normal) MIALB 9.8 mg/L (Normal) CREU 129.4 mg/dL (Normal) :17 URIC 4.5 mg/dL (Normal) Range: 2.6-6.0 :22 HgA1C , Office (48704) HgA1C , Office 6.3 % (Normal) Range: 4.6 - 7.1 :16 HgA1C , Office (58162) HgA1C , Office 5.8 % (Normal) Range: [...] mg/dL High Risk :18 HgA1C , Office (67231) HgA1C , Office 6.3 % (Normal) Range: 4.6 - 7.1 :18 Blood Glucose , Office (00408) Blood Glucose , Office 108 (Normal) Comments: [...] 4.2-5.4 WBC 9.5 K/mm3 (Normal) Range: 4.4-11.0 87-Rch-13889:14 CMP Comments: f/u 07/31/11 GAP 8 (Normal) [...] mg/dL High Risk :08 HgA1C , Office (51583) HgA1C , Office 6.1 % (Normal) Range: 4.6 - 7.1 :08 Blood Glucose , Office (39242) Blood Glucose , Office 98 (Normal) :16 [...] 63.1 mg/dL (Normal) :35 HgA1C , Office (76728) HgA1C , Office 6.5 % (Normal) Range: 4.6 - 7.1 :35 Blood Glucose , Office (36032) Blood Glucose , Office 101 (Normal) :20 [...] (Normal) Range: 0.358-3.74 :44 HgA1C , Office (43547) HgA1C , Office 6.3 % (Normal) Range: 4.6 - 7.1 :44 Blood Glucose , Office (72694) Blood Glucose , Office 136 (Normal) :09 [...] >240 mg/dL High Risk :09 VIT D,25 29055 36.0 ng/mL (Normal) Range: 32.0-100.0 Comments: Recent studies consider the lower limit of 32.0 ng/mL to amaury threshold for optimal health.Michael GONG. J Nutr. 2004;135(2):317-22.Performed at: [facility] [place] [address]Lab Director: Angie Grace MD, Phone: [phone] HgA1C , Office (38748) HgA1C , Office 6.6 % (Normal) Range: 4.6 - 7.1 :07 Blood Glucose , Office (10734) Blood Glucose , Office 128 (Normal) :13 [...] CHOL 148 mg/dL (Normal) Comments: <200 mg/dL Bluuyutwi584-672 mg/dL Borderline>240 mg/dL High Risk HDL 37 [...] 95.4 mg/dL (Normal) :12 HgA1C , Office (21019) HgA1C , Office 6.5 % (Normal) Range: 4.6 - 7.1 :12 Blood Glucose , Office (74194) Blood Glucose , Office 142 (Normal) :39 [...] CHOL 139 mg/dL (Normal) Comments: <200 mg/dL Hwknckbqq762-183 mg/dL Borderline>240 mg/dL High Risk HDL 42 [...] mg/dL (Normal) Range: 5-40 :34 VIT D,25 65285 48.4 ng/mL (Normal) Range: 32.0-100.0 Comments: Recent studies consider the lower limit of 32.0 ng/mL to amaury threshold for optimal health.Michael GONG. J Nutr. 2004;135(2):317-22.Performed at: [facility] [address] [place], [place] [id number] Director: Pavel Wild MD :00 Antinuclear Antibodies Comments: PERFORMED BY: [address] [id number] BY: [facility]6370 [facility] [id number] Direct JOSE ALEJANDRO Direct Negative (Normal) :00 C-Reactive Protein, 1.5 mg/L (Normal) Comments: PERFORMED BY: [address] [id number] BY: [address] [id number] Quant Range: 0.0-4.9 :00 Rheumatoid Arthritis Comments: PERFORMED BY: [address] [id number] BY: [place] [id number] [facility] [id number] Factor RA Latex Turbid. 4.9 {IU/mL} Range: 0.0-13.9 (Normal) : Sedimentation 17 mm/h (Normal) Comments: PERFORMED BY: [address] [id number] BY: [facility]6370 [facility] [id number] Rate-Westergren Range: 0-30 :00 Strongyloides Ab IgG, MENDEZ Comments: PERFORMED BY: [address] [id number] BY: [facility]6370 [facility] [id number] Strongyloides Ab, IgG by 0.69 {IV} (Normal) [...] and its performance character istics de-termined by [facility]. It has not been approvedby the U.[place]. [...] (Normal) Range: 4.4-11.0 :34 HgA1C , Office (57996) HgA1C , Office 6.5 % (Normal) Range: 4.6 - 7.1 :34 Blood Glucose , Office (23311) Blood Glucose , Office 127 (Normal) :39 [...] 47-70 WBC 10.2 K/mm3 (Normal) Range: 4.4-11.0 83-Kwj-08109:39 COMP METABOLIC CL 105 mmol/L (Normal) Range: [...] CHOL 210 mg/dL (Abnormal) Comments: <200 mg/dL Lugjvrfvd758-315 mg/dL Borderline>240 mg/dL High Risk HDL 41 mg/dL (Normal) Comments: Reference RangeHDL <40 mg/dL Low HDL CholesterolHDL >or= 60 mg/dL High HDL Cholesterol LDL 126 mg/dL (Normal) Range: 0-130 TRIG 216 mg/dL (Abnormal) Comments: Serum Triglycerides Reference IntervalNormal <150 mg/dLBorderline high 150 - 199 mg/dLHigh 200 - 499 mg/ dLVery High > or = 500 mg/dL 58-Ket-778585:16 CHEST, PA AND LATERAL Radiology Report See Note (Normal) Comments: Exam Number: [id number] PA AND LATERAL VIEW OF THE CHEST KOSGMVB06-bzyj-cci woman with shortness of breath. PA AND LATERAL VIEWS OF THE CHEST Comparison of February 26, 2006. Cardiac and medi astinal silh ouettes are normal. The lungs are clear.Pleural margins are sharp. Osteopenia but no compression deformities. IMPRESSIONNo evidence of acute disease. Reported By: ELIAS BACON M.D. 17-Vxb-407174:21 Urinalysis, Office (57343) UA - BILIRUBIN Negative (Normal) UA - BLOOD Negative (Normal) UA - GLUCOSE Negative (Normal) UA - KETONES Negative mg/dL (Normal) UA - LEUKOCYTE ESTERASE Negative (Normal) UA - NITRITE Negative (Normal) UA - PH 5.0 (Normal) UA - PROTEIN Negative mg/dL (Normal) UA - SPECIFIC GRAVITY 1.010 (Normal) URINE UROBILINGN ROCKY TIMED Normal mg/dL (Normal) 66-Ilq-725409:14 HgA1C , Office (12918) HgA1C , Office 6.3 % (Normal) Range: 4.6 - 7.1 :14 Blood Glucose , Office (31253) Blood Glucose , Office 118 (Normal) :15 [...] mg/L (Normal) UR CREAT 157.0 mg/dL (Normal) 91-Pry-890795:45 [facility] [id number] Comments: CYTOLOGY INFORMATION:- CLINICAL INFORMATION: - DATE LMP/MENOPAUSE: DATE NOT GIVEN MENOPAUSE- COLLECTION VIAL: Thin Prep Vial- 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 .Performed At: [address] [id number] [facility] Comment (Normal) Comments: The Pap smear is a screening test designed to aid in thedetection of premalignant and malignant conditions of theuterine cervix. It is not a diagnostic procedure andshould not be used as the sole means of detecting cervicalcancer. Both false-positive and false-negative reports dooccur. . PERFORM Comment (Normal) Comments: Mirian Martins, Label Fuser Tender (ASCP) DIAGN Comment (Normal) Comments: NEGATIVE FOR INTRAEPITHELIAL LESION AND MALIGNANCY.CELLULAR CHANGES ASSOCIATED WITH INFLAMMATION ARE PRESENT. :18 Blood Glucose , Office (91269) Blood Glucose , Office 112 (Normal) :18 HgA1C , Office (17275) HgA1C , Office 6.0 % (Normal) Range: [...] POS & NEG ORGANISMS :33 Urinalysis, Office (42198) UA - BILIRUBIN Negative (Normal) UA - BLOOD Negative (Normal) UA - GLUCOSE Negative (Normal) UA - KETONES Negative mg/dL (Normal) UA - LEUKOCYTE ESTERASE Negative (Normal) UA - NITRITE Negative (Normal) UA - PH 5.0 (Normal) UA - PROTEIN Negative mg/dL (Normal) UA - SPECIFIC GRAVITY 1.015 (Normal) URINE UROBILINGN ROCKY TIMED 2 mg/dL (Normal) :32 HgA1C , Office (69958) HgA1C , Office 6.1 % (Normal) Range: 4.6 - 7.1 :32 Blood Glucose , Office (08156) Blood Glucose , Office 112 (Normal) :17 [...] (Normal) Range: 6.4-8.2 :42 HgA1C , Office (19054) HgA1C , Office 5.9 % (Normal) Range: 4.6 - 7.1 :42 Blood Glucose , Office (61303) Blood Glucose , Office 116 (Normal) :32 [...] Range: 6.4-8.2 :19 Blood Glucose , Office (38160) Blood Glucose , Office 107 (Normal) Comments: :19 HgA1C , Office (83172) HgA1C , Office 5.8 % (Normal) Range: [...] Range: 0.34-4.82 :55 Blood Glucose , Office (54585) Blood Glucose , Office 138 (Normal) Comments: 2HPPBS :45 ALDOST,U24 4291 Comments: 24 H URINE TV = 1230 ML ALDOSTERONE,U24 10 {ug/24_hr} (Normal) Range: 2-21 Comments: 1 mo. 1 - 11 1- 12 mos. 1 - 22 1- 16 yrs. 2 - 16 Adult Ranges Normal diet 2 - 21 Low salt 17 - 44 High salt 0 - 14Performed At: [address] [id number] ALDOSTERONE,UR 8 ug/L (Normal) :45 FUNMI U24 547389 Comments: 24 H URINE TV = 1230 ML CORTISOL,FR U24 59 {ug/24_hr} (Normal) CORTISOL,U FREE 48 ug/L (Normal) :15 CAT+VMA [id number] DOPAMINE,U24 195 Range: 65-610 {ug/24_hr} Comments: TESTING PERFORMED AT [facility]. ORIGINAL REPORT ON FILE IN LAB CONTAINS ADDITIONAL TEST SITE INFORMATION. (Normal) DOPAMINE,UR 186 ug/L (Normal) EPINEPHRINE, 7 ug/L UR (Normal) EPINEPHRINE,U 7 Range: 0-24 24 {ug/24_hr} (Normal) NOREPINEPH,U2 46 Range: 0-140 4 {ug/24_hr} (Normal) NOREPINEPH,UR 44 ug/L (Normal) VMA,24UR 4.3 Range: 1.8-6.7 {mg/24_hr} (Normal) VMA,UR 4.1 mg/L (Normal) :15 METAN,U24 4234 METANEPH,U24 112 {ug/24_hr} (Normal) Range: 35-460 Comments: Performed At: [address] [id number] METANEPHRINE,UR 107 ug/L (Normal) NORMETANEPH,U24 336 {ug/24_hr} (Normal) Range: 110-1050 NORMETANEPH,UR 320 ug/L (Normal) :42 MYOCARD PERF SPECT REST/STRESS Radiology Report See Note (Normal) Comments: Exam Number: [id number] MYOCARDIAL PERFUSION SCAN 12.6 millicuries of Tc99m [...] 7.2 g/dL (Normal) Range: 6.4-8.2 :49 H.PYLORI 905218 < 0.9 U/mL (Normal) Range: 0.0-0.8 Comments: Negative <0.9 Indeterminate 0.9 - 1.0 Positive >1.0Performed At: [facility] [address] [place], [place] [id number] :49 TSH 1.86 {uIU/mL} (Normal) Range: 0.34-4.82 :26 HgA1C , Office (82783) Comments: [facility] HgA1C , Office 5.7 % (Normal) Range: 4.6 - 7.1 :26 Blood Glucose , Office (29221) Comments: [facility] Blood Glucose , Office 116 (Normal) [...] Range: 5-40 :35 Blood Glucose , Office (47489) Blood Glucose , Office 140 (Normal) :34 HgA1C , Office (15076) HgA1C , Office 6.8 % (Normal) Range: 4.6 - 7.1 :10 GLUP 154 mg/dL (Abnormal) Comments: GLU,2HPPG 75gm GLUC PPG GLUP from 1114:Z25068Q. Comments: Glucose result from 140 to <200 [...] T PROT 6.9 g/dL (Normal) Range: 6.4-8.2 21-Xjy-24010:59 COMPLETE UA BACTERIA 0 SEEN {/hpf} (Normal) [...] cell neoplasm of lung, left : Reviewed [employer] Letter Indication: Nonsquamous nonsmall cell neoplasm of [...] level Elevated serum globulin level : Reviewed [employer] Letter Indication: Elevated serum globulin level Controlled diabetes mellitus type II without complication : Follow up in 3 months Indication: Controlled diabetes mellitus type II without complication Monoclonal gammopathy : Reviewed Lab Indication: Monoclonal gammopathy Monoclonal gammopathy : Reviewed Diagnostic Tests Indication: Monoclonal gammopathy Monoclonal gammopathy : Reviewed [employer] Letter Indication: Monoclonal gammopathy Controlled diabetes mellitus [...] hypertension Planned Observations Rapid Strep Test, Office (25977)Indication: Sore throat On: 7-Tld-063478:56 Request Throat Culture (58501)Indication: Sore throat On: 6-Qsj-670841:35 Request Cologuard - Strool Based DNA Test, CRC SCREEN (61417)Indication: Encounter for screening for malignant neoplasm of rectum On: 96-Oms-017474:48 Request CALCIFEDIOL (83323)Indication: Vitamin D deficiency On: 20-Uel-889184:35 Request MICROALBUMIN: CREATININE RATIO (33417) AND (01026)Indication: Benign essential hypertension On: 57-Zgs-930464:34 Request URINALYSIS, W/ MICRO (35972)Indication: Benign essential hypertension On: 57-Gsu-967604:34 Request TSH (98268)Indication: Benign essential hypertension On: 61-Vua-017449:34 Request Lipid Panel (83249)Indication: Mixed hyperlipidemia On: 42-Djz-110146:34 Request CBC WITH MANUAL DIFF (31313)Indication: Benign essential hypertension On: :34 Request Metabolic Panel, Comprehensive (00813)Indication: Vitamin D deficiency On: 96-Lyp-713863:34 Request FECAL OCCULT- Tubes sent home (69318)Indication: Anemia, unspecified (Renamed from Anemia) On: 81-Qpo-371482:18 Request IRON (68246)Indication: Anemia, unspecified (Renamed from Anemia) On: 51-Oio-962401:18 Request TSH (THYROID STIMULATING HORMONE) (29779)Indication: Benign essential hypertension On: 23-Byj-363344:02 Request LIPID PANEL (68885)Indication: Mixed hyperlipidemia On: 71-Vik-222044:59 Request METABOLIC PANEL, COMPREHENSIVE (22164)Indication: Lymphadenopathy, cervical On: :58 Request CBC, PLATELETS & AUT DIFF (97637)Indication: Lymphadenopathy, cervical On: :58 Request EB ANTIBODY NUCLR ANTIGN (74331)Indication: Lymphadenopathy, cervical On: 2-Dmu-792583:39 Request MICROALBUMIN: CREATININE RATIO (73391) AND (58684)Indication: Controlled diabetes mellitus type II without complication On: 1-Dyy-097630:03 Request CALCIFEDIOL (51315)Indication: Controlled diabetes mellitus type II without complication On: 3-Noz-429918:03 Request TSH (THYROID STIMULATING HORMONE) (17611)Indication: Controlled diabetes mellitus type II without complication On: 9-Dum-624202:03 Request LIPID PANEL (42812)Indication: Controlled diabetes mellitus type II without complication On: 9-Ybo-231551:03 Request METABOLIC PANEL, COMPREHENSIVE (13362)Indication: Controlled diabetes mellitus type II without complication On: 1-Hpt-408358:03 Request CBC, PLATELETS & AUT DIFF (52439)Indication: Controlled diabetes mellitus type II without complication On: 9-Nov-247453:03 Request MICROALBUMIN: CREATININE RATIO (05221) AND (35254)Indication: Benign essential hypertension On: :36 Request VITAMIN B12 AND FOLATES (84626)Indication: Benign essential hypertension On: :36 Request CALCIFEDIOL (48898)Indication: Benign essential hypertension On: 61-Yqb-185237:36 Request LIPID PANEL (56635)Indication: Benign essential hypertension On: :36 Request METABOLIC PANEL, COMPREHENSIVE (87550)Indication: Benign essential hypertension On: :36 Request CBC, PLATELETS & AUT DIFF (63874)Indication: Benign essential hypertension On: :36 Request CBC with auto diff (84524)Indication: Controlled diabetes mellitus type II without complication On: : Request HGB A1C (04082)Indication: Controlled diabetes mellitus type II without complication On: : Request MICROALBUMIN: CREATININE RATIO (44803) AND (20739)Indication: Controlled diabetes mellitus type II without complication On: : Request METABOLIC PANEL, COMPREHENSIVE (15683)Indication: Mixed hyperlipidemia On: : Request LIPID PANEL (86722)Indication: Mixed hyperlipidemia On: : Request HGB A1C (75717)Indication: Controlled diabetes mellitus type II without complication On: 33-Wua-823420:15 Request CBC with auto diff (93155)Indication: Allergic eosinophilia On: 89-Iop-229938:14 Request LIPID PANEL (78121)Indication: Mixed hyperlipidemia On: 79-Ekf-094217:14 Request METABOLIC PANEL, COMPREHENSIVE (97971)Indication: Benign essential hypertension On: 97-Kov-230271:13 Request serum free light chains (66975)Indication: Elevated serum globulin level On: 96-Ibx-602996:13 Request urine immunofixation (59563)Indication: Elevated serum globulin level On: 32-Aft-885153:13 Request serum immunofixation (25889)Indication: Elevated serum globulin level On: 52-Xmr-252288:13 Request LIPID PANEL (26442)Indication: Mixed hyperlipidemia On: :46 Request URIC ACID BLOOD (80492)Indication: Gout On: :46 Request METABOLIC PANEL, COMPREHENSIVE (75105)Indication: Benign essential hypertension On: :45 Request CBC with auto diff (60010)Indication: Allergic eosinophilia On: :45 Request MICROALBUMIN: CREATININE RATIO (63231) AND (36106)Indication: Controlled diabetes mellitus type II without complication On: :45 Request Hemoglobin Glyclated (HGB A1C) (33637)Indication: Controlled diabetes mellitus type II without complication On: 2-Ssc-049411:45 Request URIC ACID BLOOD (69591)Indication: Gout On: 8-Ipi-460062:54 Request LIPID PANEL (86821)Indication: Mixed hyperlipidemia On: 7-Lgx-061127:52 Request METABOLIC PANEL, COMPREHENSIVE (96254)Indication: Controlled diabetes mellitus type II without complication On: 0-Kty-981111:52 Request CBC W/AUTO DIFF WBC (32024)Indication: Allergic eosinophilia On: 9-Ryv-112709:52 Request urine immunofixation (56668)Indication: Elevated serum globulin level On: :52 Request serum immunofixation (06759)Indication: Elevated serum globulin level On: 2-Iza-422692:52 Request URIC ACID BLOOD ([id number])Indication: Gout On: 01-Efe-807163:06 Request MICROALBUMIN: CREATININE RATIO ([id number]) AND ([id number])Indication: Controlled diabetes mellitus type II without complication On: 36-Jce-328253:05 Request LIPID PANEL ([id number])Indication: Mixed hyperlipidemia On: 57-Xgl-426900:04 Request CBC W/AUTO DIFF WBC (67645)Indication: Allergic eosinophilia On: 20-Opc-662885:04 Request METABOLIC PANEL, COMPREHENSIVE (77107)Indication: Controlled diabetes mellitus type II without complication On: 25-Iqt-091588:04 Request LIPID PANEL ([id number])Indication: Mixed hyperlipidemia On: 1-Mwu-309863:43 Request CBC W/AUTO DIFF WBC ([id number])Indication: Allergic eosinophilia On: 0-Ija-896585:43 Request METABOLIC PANEL, COMPREHENSIVE ([id number])Indication: Controlled diabetes mellitus type II without complication On: 9-Sov-636087:43 Request serum free light chains (11969)Indication: Elevated serum globulin level On: 40-Pbv-540968:36 Request LIPID PANEL ([id number])Indication: Mixed hyperlipidemia On: 2-Ytd-167418:17 Request METABOLIC PANEL, COMPREHENSIVE ([id number])Indication: Benign essential hypertension On: 0-Ncp-893017:17 Request CBC WITH MANUAL DIFF ([id number])Indication: Allergic eosinophilia On: 9-Nki-531087:17 Request HEPATIC FUNCTION PANEL ([id number])Indication: Abnormal finding of blood chemistry, unspecified On: 44-Tiv-926523:16 Request Comments: 2 weeks URIC ACID BLOOD (23401)Indication: Left hip pain On: 95-Nrf-039582:44 Request LIPID PANEL (42961)Indication: Mixed hyperlipidemia On: :08 Request MICROALBUMIN: CREATININE RATIO ([id number]) AND ([id number])Indication: Controlled diabetes mellitus type II without complication On: :08 Request CBC WITH MANUAL DIFF ([id number])Indication: Benign essential hypertension On: :08 Request METABOLIC PANEL, COMPREHENSIVE ([id number])Indication: Benign essential hypertension On: :08 Request Uric Acid Blood (04306)Indication: Foot pain On: :41 Request CBC WITH MANUAL DIFF ([id number])Indication: Benign essential hypertension On: :50 Request LIPID PANEL ([id number])Indication: Mixed hyperlipidemia On: :50 Request MICROALBUMIN: CREATININE RATIO ([id number]) AND ([id number])Indication: Controlled diabetes mellitus type II without complication On: :50 Request METABOLIC PANEL, COMPREHENSIVE ([id number])Indication: Controlled diabetes mellitus type II without complication On: :50 Request METABOLIC PANEL, COMPREHENSIVE ([id number])Indication: Controlled diabetes mellitus type II without complication On: :43 Request METABOLIC PANEL, COMPREHENSIVE ([id number])Indication: Benign essential hypertension On: :36 Request LIPID PANEL ([id number])Indication: Mixed hyperlipidemia On: :36 Request CBC WITH MANUAL DIFF ([id number])Indication: Allergic eosinophilia On: :36 Request MICROALBUMIN: CREATININE RATIO ([id number]) AND ([id number])Indication: Controlled diabetes mellitus type II without complication On: :41 Request METABOLIC PANEL, COMPREHENSIVE ([id number])Indication: Controlled diabetes mellitus type II without complication On: :33 Request LIPID PANEL ([id number])Indication: Mixed hyperlipidemia On: : Request HgA1C , Office ([id number])Indication: Controlled diabetes mellitus type II without complication On: :17 Request LIPID PANEL ([id number])Indication: Mixed hyperlipidemia On: :45 Request METABOLIC PANEL, COMPREHENSIVE ([id number])Indication: Controlled diabetes mellitus type II without complication On: :45 Request CBC WITH MANUAL DIFF ([id number])Indication: Allergic eosinophilia On: :45 Request CBC WITH MANUAL DIFF ([id number])Indication: Allergic eosinophilia On: :34 Request LIPID PANEL ([id number])Indication: Mixed hyperlipidemia On: :34 Request METABOLIC PANEL, COMPREHENSIVE (00011)Indication: Controlled diabetes mellitus type II without complication On: :31 Request CBC WITH MANUAL DIFF ([id number])Indication: Need for prophylactic vaccination and inoculation against influenza On: : Request CBC WITH MANUAL DIFF ([id number])Indication: Allergic eosinophilia On: :59 Request LIPID PANEL ([id number])Indication: Mixed hyperlipidemia On: :57 Request MICROALBUMIN: CREATININE RATIO ([id number]) AND ([id number])Indication: Controlled diabetes mellitus type II without complication On: :56 Request METABOLIC PANEL, COMPREHENSIVE ([id number])Indication: Controlled diabetes mellitus type II without complication On: :56 Request TSH ([id number])Indication: Symptomatic tachycardia On: :21 Request CBC WITH MANUAL DIFF ([id number])Indication: Allergic eosinophilia On: 7-Pdq-274563:20 Request Comments: 2 weeks METABOLIC PANEL, COMPREHENSIVE ([id number])Indication: Benign essential hypertension On: :20 Request LIPID PANEL ([id number])Indication: Mixed hyperlipidemia On: :19 Request LIPID PANEL ([id number])Indication: Mixed hyperlipidemia On: 5-Uih-625958:20 Request CALCIFEDIOL ([id number])Indication: POSTMENOPAUSAL STATE On: :53 Request METABOLIC PANEL, COMPREHENSIVE ([id number])Indication: Benign essential hypertension On: :53 Request CBC with manual diff ([id number])Indication: Benign essential hypertension On: 00-Loj-862973:53 Request LIPID PANEL ([id number])Indication: Mixed hyperlipidemia On: :53 Request CBC WITH MANUAL DIFF ([id number])Indication: Allergic eosinophilia On: :40 Request Comments: 1 month after takes meds CBC WITH MANUAL DIFF ([id number])Indication: Allergic eosinophilia On: :48 Request METABOLIC PANEL, COMPREHENSIVE ([id number])Indication: Benign essential hypertension On: :48 Request LIPID PANEL ([id number])Indication: Mixed hyperlipidemia On: :48 Request MICROALBUMIN: CREATININE RATIO ([id number]) AND ([id number])Indication: Controlled diabetes mellitus type II without complication On: :48 Request RHEUMATOID FACTOR-QUANT ([id number])Indication: Allergic eosinophilia On: :20 Request JOSE ALEJANDRO (ANTINUCLEAR ANTIBODY) ([id number])Indication: Allergic eosinophilia On: :20 Request C-REACTIVE PROTEIN ([id number])Indication: Allergic eosinophilia On: :20 Request SED RATE ERYTHROCYTE ([id number])Indication: Allergic eosinophilia On: :19 Request OVA & PARASITE DIR SMEAR ([id number])Indication: Allergic eosinophilia On: :14 Request LEUKOCYTE COUNT, FECAL ([id number])Indication: Allergic eosinophilia On: :14 Request C.Difficile, Stool ([id number])Indication: Allergic eosinophilia On: :14 Request MARIEL CULTURE-STOOL ([id number])Indication: Allergic eosinophilia On: :14 Request CBC WITH MANUAL DIFF ([id number])Indication: Allergic eosinophilia On: :09 Request HEPATIC FUNCTION PANEL ([id number])Indication: Mixed hyperlipidemia On: :09 Request LIPID PANEL ([id number])Indication: Mixed hyperlipidemia On: :09 Request MICROALBUMIN: CREATININE RATIO ([id number]) AND ([id number])Indication: Abnormal glucose tolerance test On: 9-Dff-794872:44 Request HEPATIC FUNCTION PANEL ([id number])Indication: Mixed hyperlipidemia On: :34 Request LIPID PANEL ([id number])Indication: Mixed hyperlipidemia On: :34 Request CBC WITH MANUAL DIFF ([id number])Indication: Abdominal pain, unspecified abdominal location On: :51 Request HEPATIC FUNCTION PANEL ([id number])Indication: Mixed hyperlipidemia On: :49 Request LIPID PANEL ([id number])Indication: Mixed hyperlipidemia On: 09-Mhh-08250:48 Request LIPID PANEL ([id number])Indication: Mixed hyperlipidemia On: :02 Request HEPATIC FUNCTION PANEL (07501)Indication: Mixed hyperlipidemia On: 0-Zlo-415166:02 Request LIPID PANEL ([id number])Indication: Mixed hyperlipidemia On: :37 Request HEPATIC FUNCTION PANEL ([id number])Indication: Mixed hyperlipidemia On: :37 Request MICROALBUMIN URINE QUANT ([id number])Indication: Abnormal glucose tolerance test On: :02 Request URINALYSIS W/O MICRO ([id number])Indication: Abnormal glucose tolerance test On: :02 Request TSH ([id number])Indication: Abnormal glucose tolerance test On: : Request CBC WITH MANUAL DIFF ([id number])Indication: Abnormal glucose tolerance test On: : Request METABOLIC PANEL, COMPREHENSIVE ([id number])Indication: Abnormal glucose tolerance test On: : Request HEPATIC FUNCTION PANEL ([id number])Indication: Mixed hyperlipidemia On: :01 Request LIPID PANEL ([id number])Indication: Mixed hyperlipidemia On: :01 Request HgA1C , Office ([id number])Indication: Abnormal glucose tolerance test On: 5-Wfo-782164:55 Request HELICOBACTER PYLORI ANTIBODY PROFILE IgG, IgM, IgA ([id number])Indication: Epigastric pain On: 1-Kfa-090376:05 Request CBC WITH MANUAL DIFF ([id number])Indication: Palpitations On: 6-Isj-825747:45 Request METABOLIC PANEL, COMPREHENSIVE (51704)Indication: Palpitations On: 3-Xyz-440499:45 Request TSH ([id number])Indication: Palpitations On: 0-Czf-724977:45 Request METABOLIC PANEL, COMPREHENSIVE ([id number])Indication: Mixed hyperlipidemia On: 10-Zzy-799231:04 Request LIPID PANEL ([id number])Indication: Mixed hyperlipidemia On: 86-Ntb-782430:04 Request URINALYSIS W/O MICRO ([id number])Indication: Elevated blood-pressure reading without diagnosis of hypertension On: :22 Request TSH ([id number])Indication: Elevated blood-pressure reading without diagnosis of hypertension On: :22 Request MICROALBUMIN URINE QUANT ([id number])Indication: Elevated blood-pressure reading without diagnosis of hypertension On: :22 Request METABOLIC PANEL, COMPREHENSIVE ([id number])Indication: Elevated blood-pressure reading without diagnosis of hypertension On: :22 Request CBC WITH MANUAL DIFF ([id number])Indication: Elevated blood-pressure reading without diagnosis of hypertension On: :22 Request LIPID PANEL ([id number])Indication: Mixed hyperlipidemia On: :21 Request HEPATIC FUNCTION PANEL ([id number])Indication: Mixed hyperlipidemia On: :20 Request GLUCOSE, PP/2 HOUR ([id number])Indication: Hypoglycemia On: :20 Request Planned Procedures ELECTROCARDIOGRAM, COMPLETE (ECG) On: 06-Nov-2017 Intent (54848)By: Katie Fernández DO Comments: nsr no acute cgh DOKatie CT SCAN, SOFT TISSUE NECK W/ CONTRAST On: 20-Aug-2016 Intent (74508)By: Katie Fernández DO Comments: attention cervical lymph nodes DO, Katie TDAP VACCINE >7 IM ([id number])By: Jolene On: 08-Aug-2016 Intent Katie VANCE DO, Kathleen Comments: boostrixlot [id number] 10.9.18L Dltd, IMPrefilled syringeMegan Long, LPNVIS signed ELECTROCARDIOGRAM, COMPLETE (ECG) On: 19-Jul-2016 Intent ([id number])By: Katie Fernández DO Comments: nsr no acute chg Katie VANCE Spirometry ([id number])By: Олег Santos MD On: 27-Dec-2015 Intent MAMMOGRAM, SCREENING, BOTH BREAST On: 09-Sep-2015 Intent ([id number])By: Jewell Coffman DO EKG ([id number])By: Jewell Coffman DO On: 07-Dec-2013 Intent Eprescribed prescriptions ([id number])By: On: 05-Aug-2013 Intent Jewell Coffman DO PHYSICAL THERAPY EVALUATION ([id number])By: On: 06-Jul-2013 Intent Concha Ford CNP Radiology - Hip - LeftBy: Liliana CHAMBERS, On: 06-Jul-2013 Intent Concha Geren Eprescribed prescriptions ([id number])By: On: 25-Mar-2013 Intent America Molina Eprescribed prescriptions ([id number])By: On: 09-Mar-2013 Intent Pebbles Medrano EKG (23142)By: America Molina On: 22-Oct-2012 Intent Comments: ekg showed normal sinus rhythym, normal axis, no acute st/t wave changes Eprescribed prescriptions ([id number])By: On: 21-May-2012 Intent America Molina IMMUNIZ ADMNIN, 1 VAC, SNGL/COMBO On: 16-Jan-2012 Intent ([id number])By: America Molina Pneumovax (79441)By: Jesse, On: 16-Jan-2012 Intent America Eprescribed prescriptions ([id number])By: On: 16-Jan-2012 Intent America Molina EKG ([id number])By: Jewell Coffman DO On: 31-Jul-2011 Intent Comments: ekg showed normal sinus rhythym, normal axis, no acute st/t wave changes no change in st segments inferiorly TD Injection , IM ([id number])By: Jesse On: 04-Apr-2011 Intent America Comments: [facility] 2008 FLU VAC, SPLIT, >3 YEARS, INTRAMUSC On: 04-Apr-2011 Intent ([id number])By: America Molina Comments: refuses Nuclear Stress Test/Stress On: 21-Jul-2010 Intent SPECT/TreadmillBy: Jewell Coffman DO EKG (47789)By: America Molina On: 21-Jul-2010 Intent EKG (35943)By: America Molina On: 28-Dec-2009 Intent Comments: ekg showed normal sinus rhythym, normal axis, no acute st/t wave changes no change in inferior wall Nuclear Stress Test/Stress On: 22-Sep-2008 Intent SPECT/TreadmillBy: Jewell Coffman DO Spirometry ([id number])By: Jewell Coffman DO On: 22-Sep-2008 Intent A Comments: done km Radiology - Chest- PA and LatBy: Augustus On: 22-Sep-2008 Intent DO, Jewell A Pulse Oximetry ([id number])By: Augustus VANCE On: 22-Sep-2008 Intent Jewell Ríos Comments: 97% EKG ([id number])By: America Molina On: 22-Sep-2008 Intent Comments: done kmekg showed normal sinus rhythym, normal axis, no acute st/t wave changes Solu -Medrol Injection, 125 mg On: 10-May-2008 Intent ([id number])By: Jewell Coffman DO Comments: Amt: 2mlLot: OAUWWExp: 07Site: left hipTolerated: wellGiven By: JAMA Alcaraz EKG (12382)By: America Molina On: 20-Aug-2007 Intent Comments: ekg showed normal sinus rhythym, normal axis, no acute st/t wave changes Nuclear Stress Test/Stress On: 29-Aug-2006 Intent SPECT/TreadmillBy: Jewell Coffman DO Echo CompleteBy: ARTHUR CORRAL CNP On: 20-Aug-2006 Intent EKG ([id number])By: ARTHUR CORRAL CNP On: 20-Aug-2006 Intent Comments: NSR Holter Moniter ([id number])By: ELLIS CHAMBERS On: 20-Aug-2006 Intent ARTHUR Holter Moniter (54495)By: Tyler On: 22-Jul-2006 Intent HAFSA Holter Moniter ([id number])By: Augustus VANCE On: 03-Jul-2006 Intent Jewell Ríos EKG (63438)By: Jewell Coffman DO On: 26-Mar-2006 Intent Comments: [...] The patient does have durable power of tax attorney and living will. The patient has [...] for Tdap vaccination (Renamed from Need for uhcohmqqxr-dvyclhx-tzvcdwozb (Tdap) vaccine, adult/adolescent) [facility] [...] and leg pain gone- she went to [facility] and doing certain exercises and got better- [...] (796.2), GERD (530.81), Abdominal Pain,Unspecified Site (789.00[place] [facility] [place] [facility] Historical Summary On: 19-Jan-2008 [...] is beating faster actually took pulse and [id number] Encounter Diagnosis: Abnormal Glucose Tolerance Test (790.22), [...]
--- OUTSIDE RECORDS SUMMARY | 2018-05-07 02:12 | XMS RPT_ITS | Continuity of Care Document ---
:1950 Author Organization [facility] Address [facility] 2 [place] [address] Phone Care Team Providers Name Role Phone Katie Fernández DO Unavailable Lars Santos Unavailable Divine SALVADOR, George Boyd Unavailable Dr. Tanner Jamil Unavailable Marina Weaver Unavailable Unavailable Long ROLLER PAINTER, Isabella L Unavailable Unavailable Ciesa MACHINE SETUP OPERATOR, Jillian Unavailable Unavailable Unavailable Problems Name Dates [...] 250.00) Comments: HBA1c 5.6(05/01)HBA1c 5.8( (12/29)eye exam: [facility], 01/27.FBS: does not check at home, usualy in 120Eye exam : 01/28, [facility] Status: Active Cough (R05, 786.2) [...] for Tdap vaccination (Renamed from Need for gidzikrtil-hdtzihy-ovkwggyap (Tdap) vaccine, adult/adolescent) (Z23, V06.1) Status: Active Non-smoker (Z78.9, V49.89) Status: Active Nonsquamous nonsmall cell neoplasm of lung, 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, 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) Comments: ccf being treated with gene therapy - found the Pirate3D cat scan neck/chest/abdomen q3mo and brain scan [...] Comments: Was able to stop smoking in [facility] quit 3 yrs agoWorried about gaining weight [...] 90 {Tablet} Refills: 3 Ordered:23-Dec-2017 Jolene VANCE KatieLeonorpriscilladonte Katie Start : 23-Dec-2017 Active Zithromax Z-Cj 250 [...] America Molina Start : 17-Mar-2008 Inactive Nystatin 443053 UNIT/ML Mouth/Throat Suspension 5 cc cc 5times [...] qd for 0 days Refills: 0 Ordered:17-Aug-2009 America MolinaInactive TYLENOL PM EXTRA STRENGTH, 500-25MG (Oral Tablet) 1/2 tab q hs for 0 days Refills: 0 Ordered:17-Aug-2009 America MolinaInactive Vitamin D3 03739 UNIT Oral Capsule 1 (one) Capsule once a week for 60 days Quantity: 8 {Capsule} Refills: 0 Ordered:19-Apr-2016 Олег Santos MD Start : 19-Apr-2016 End : 18-Jun-2016 Inactive Vitamin K2-Vitamin D3 45-2000 MCG-UNIT Oral Capsule daily (45-2000 MCG-UNIT) Inactive ZOSTAVAX, 12928VXH/0.65ML (Subcutaneous Solution Reconstituted) 1 (one) For Solution one time dose for 0 days Quantity: 1 {For_Solution} Refills: 0 Ordered:22-Oct-2012 America Molina Start : 16-Jan-2012 End : 22-Oct-2012 Inactive Comments:Bring to doctors office immediately to receive injection unless you receive it at the pharmacy. ASPIRIN BUF(FXSPG-SWGFA-SRLLZ), 81MG (Oral Tablet Delayed Release) 1 (one) [...] End : 12-Dec-2017 Discontinued CALCIUM + D, 794-180QG-LLBT (Oral Tablet) 1 tab qd for 0 [...] Quantity: 6 {Tablet} Refills: 0 Ordered:25-Mar-2013 Augustus VANCE Jewell Ríos Start : 25-Mar-2013 End : 25-Mar-2013 [...] for 0 days Refills: 0 Ordered:15-Dec-2007 Augustus VANCE Jewell Ríos Start : 20-Aug-2007 End : 12-Dec-2007 Discontinued Comments:increase to BID until seen again. SIMVASTATIN, 40MG (Oral Tablet) 1 (one) Tablet qhs for 0 days Quantity: 30 {Tablet} Refills: 3 Ordered:16-Jan-2012 Augustus VANCE Jewell Ríos Start : 16-Jan-2012 End : 16-Jan-2012 Discontinued TiZANidine HCl 4 MG Oral Tablet 1 (one) Tablet qhs prn for 0 days Quantity: 30 {Tablet} Refills: 0 Ordered:12-Dec-2017 Marina Weaver Start : 08-Nov-2017 End : 12-Dec-2017 Discontinued TOPICORT, 0.25% (External Cream) 1 Cream bid for 0 days Quantity: 60 {Cream} Refills: 1 Ordered:25-Mar-2013 Augustus VANCE Jewell Ríos Start : 25-Mar-2013 End : 25-Mar-2013 Discontinued TRICOR, 54MG (Oral Tablet) 1 (one) Tablet qd for 0 days Quantity: 30 {Tablet} Refills: 3 Ordered:20-Aug-2007 America Molnia Start : 20-Aug-2007 End : 12-Dec-2007 Discontinued [...] chemistry, unspecified (R79.9, 790.6) Comments: [facility] and got achey and elevated liver [...] Procedures Procedure Dates Details [place] ([address]) Date: 16-Jan-2012 Cancelled Colonoscopy, Screening Completed Jan-2015 Comments: benign polyp removed Date Value Details 06-Dec-2017 SCREENING MAMM (CAD), BILAT Result: Comments: See Note; NOTES: [facility] Imaging Services [address] [place] [address] SCREENING MAMM (CAD), BILAT MR#: [id number] Acct: [id number] Name: LISETTE CRISOSTOMO Rep # : [id number] : 1950 F 67 From: Riccardo Vazquez MD PCP: Katie Fernández DO Status: REG CLI Study: SCREENING MAMM (CAD), BILAT Date of Exam: 12/06/17 Exam# [id number] Ordering Dr: Paulo Hilario MD MAMMOGRAPHY - [...] Riccardo Vazquez MD at 13:26 EDT Tel [phone], Service support , CC: Mary Hilario MD; Katie Fernández DO It Operations Manager: Signed 12-Mar-2017 Discharge Instruction Result: Comments: See Note; NOTES: [facility] Medical Records Department [address] [place] [address] Discharge Instruction 03/09/17 0655 MR#: [id number] Acct: [id number] Name: LISETTE CRISOSTOMO Rep #: [id number] : 1950 66 From: Norm Box MD PCP: Katie Fernández DO Status: DEP ER ED Disposition - Plan for ED Patient: Disposition: Home or Assisted Living Chief Compl aint: Eye Problem Instructions: ED Eye Injury Corneal Abrasion Referrals: Katie Fernández DO [Primary Care Provider] - Additional Instructions: 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 Call [facility] ([phone]) or report to the closest Emergency Room. Call 911 if necessary. 03/12/17 0643 <Electronically signed by Norm Box MD> Date Norm Box MD Cosigner Signature (If Indicated): Date CC: Katie Fernández DO 12-Mar-2017 Emergency Department Summary Result: Comments: See Note; NOTES: [facility] Medical Records Department [address] [facility] [place] [address] Emergency Department Summary 03/09/17 0653 MR#: [id number] Acct: [id number] Name: LISETTE CRISOSTOMO Rep #: [id number] : 1950 66 From: Norm Box MD [...] her eye. 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 She will return if she worsens despite treatment. Treatment Plan: [] Disposition: [] Impression: [] Right corneal abrasion secondary to contact lens. T his note was generated with [employer] dictation software. It may contain incorrect words, [...] your Primary Care Provider. Call [facility] ([phone]) or report to the closest Emergency Room. Call 911 if necessary. 03/12/17 0643 &a mp;#60;Electronically signed by Norm Box MD> Date Norm Box MD Cosigner Signature (If Indicated): Date CC: Katie Fernández DO 11-Mar-2017 Discharge Instruction Result: Comments: See Note; NOTES: [facility] Medical Records Department [facility] [place] [address] Discharge Instruction 03/11/17 1049 MR#: [id number] Acct: [id number] Name: LISETTE CRISOSTOMO Rep #: [id number] : 1950 66 From: Guilherme Sun MD PCP: Katie Fernández DO Status: DEP ER ED Disposition - Plan for ED Patient: Disposition: Home or Assisted Living Chief Complai nt: Eye Problem Instructions: ED Eye Injury Corneal Abrasion Referrals: Guilherme Broussard MD [STAFF PHYSICIAN] - As soon as possible Additional Instructions: The contacts out. Usual glasses. Call follow -up with Dr. Broussard at the [facility] soon as possible. There is trace in ophthalmic ointment 4 times a day right eye. Tetracaine eyedrops for pain but only for the next 24 hours. Sunglasses to prevent glare. What to do if you have Problems For any increased pain, shortness of breath, bleeding, nausea or vomiting, chest pain, or any unexpected problems, contact your Primary Care Provid er. Call [facility] ([phone]) or report to the closest Emergency Room. Call 911 if necessary. 03/11/17 1545 <Electronically signed by Guilherme Sun MD> Date ___ Guilherme Sun MD Cosigner Signature (If Indicated): Date CC: Katie Fernández DO 11-Mar-2017 Emergency Department Summary Result: Comments: See Note; NOTES: [facility] Medical Records Department [address] [place] [address] Emergency Department Summary 03/11/17 1046 MR#: [id number] Acct: [id number] Name: LISETTE CRISOSTOMO Rep #: [id number] : 1950 66 From: Guilherme Sun MD PCP: Katie Fernández DO Status: DEP ER - ER Visit Summary Date of Service: 03/11/17 Chief Complaint: Right eye discomfor t History of Present Illness: The patient is a 66 F does wear contacts. On started having right eye discomfort. Was seen in the [facility] ER Saturday evening and was diagnosed with [...] right eye with good relief of symptoms. [facility] t-lamp examination was performed with floor seen. [...] lens use. This note was generated with [employer] dictation software. It may contain incorrect words, [...] your Primary Care Provider. Call [facility] ([phone]) or report to the closest Emergency Room. Call 911 if necessary. 03/11/17 0892 <Electronically signed by Guilherme Sun MD> Date Guilherme Morales ignature (If Indicated): Date CC: Katie Fernández DO 23-Nov-2016 SCREENING MAMM (CAD), BILAT Result: Comments: See Note; NOTES: [facility] Imaging Services [address] [place] [address] SCREENING MAMM (CAD), BILAT MR#: [id number] Acct: [id number] Name: LISETTE CRISOSTOMO Rep # : [id number] : 1950 F 66 From: Riccardo Vazquez MD PCP: Katie Fernández DO Status: [facility] CL Study: SCREENING MAMM (CAD), BILAT Date of Exam: 11/23/16 Exam# [id number] Ordering Dr: Paulo Hilario MD MAMMOGRAPHY - [...] delay biopsy of a clinically suspicious abnormality. [id number] Electronically Signed: Riccardo Vazquez MD a t 10:53 EDT Tel [phone], Service support , CC: Mary Hilario MD; Katie Fernández DO It Operations Manager: Signed 03-Sep-2016 Soft Tissue Neck WITH Contrast Result: Comments: See Note; NOTES: [facility] Imaging Services [address] [place] [address] Verdana 4d Soft Tissue Neck WITH Contrast MR#: [id number] Acct: [id number] Name: Siobhan CRISOSTOMO Rep #: [id number] : 1950 F 65 From: Nanette Miranda MD PCP: Katie Fernández DO Status: REG CLI Study: Soft Tissue Neck WITH Contrast Date of Exam: 09/03/16 Exam# [id number] Ordering Dr: Katie Breen DO STUDY: CT [...] FINDINGS: Normal bilateral parotid glands. Normal bilateral religious education director spaces. Normal bilateral parapharyngeal spaces. Normal bilateral [...] Service support , CC: Katie Fernández DO It Operations Manager: Signed 23-Nov-2015 Unilat Rt Diag Digital AND CAD Result: Comments: See Note; NOTES: [facility] Imaging Services [address] [place] [address] Verdana 4d Unilat Rt Diag Digital AND CAD MR#: [id number] Acct: [id number] Name: KRANTHI LISETTE M Rep #: [id number] : 1950 F 65 From: Nanette Miranda MD PCP: Олег Santos Status: REG CLI Study: Unilat Rt Diag Digital AND CAD Date of Exam: 11/23/15 Exam# [id number] Ordering Dr: Mary Hilario MD MAMMOGRAPHY - [...] at 9:33 EDT Tel , Service support [phone], CC: Mary Hilario MD; Олег Santos It Operations Manager: Signed 21-Nov-2015 Bilat Scrn Digital AND CAD Result: Comments: See Note; NOTES: [facility] Imaging Services [address] [place] [address] Verdana 4d Bilat Scrn Digital AND CAD MR#: [id number] Acct: [id number] Name: DINORA CRISOSTOMO Rep #: [id number] : 1950 F 65 From: Nanette Miranda MD PCP: Олег Santos Status: REG CLI Study: Garett Carcamo Digital AND CAD Date of Exam: 11/21/15 Exam# [id number] Ordering Dr: Mary Hilario MD MAMMOGRAPHY - [...] recommended. No other significant abnormalities are identified. [facility]/Garett Carcamo Digital AND CAD IMPRESSION: Further imaging evaluation recommended, as described above. (E) ASSESSMENT CATEGORY: BIRADS Category 0: Incomplete. Need additional imaging evaluation. A letter regarding these results will be sent to the patient by the facility withi n 30 days. Approximately 10% of breast cancers are not detected by mammography. A normal mammogram should not delay biopsy of a clinically suspicious abnormality. [id number] Electronically Signed: Nanette Miranda MD at 16:57 EDT Tel , Service support [phone], CC: Mary Hilario MD; Олег Santos It Operations Manager: Signed 20-Sep-2015 Bone Survey Comp(Axial AND Append) Result: Comments: See Note; NOTES: [facility] Imaging Services [address] [place] [address] Verdana 4d Bone Survey Comp(Axial AND Append) MR#: [id number] Acct: [id number] Name: LISETTE CRISOSTOMO Rep #: [id number] : 1950 F 65 From: Germán Ashford MD PCP: Jewell Coffman DO Status: REG CLI Study: Bone Survey Comp(Axial AND Append) Date of Exam: 09/20/15 Exam# [id number] Ordering Dr: Mateusz Pham DO STUDY: X-RAY [...] MD at 16:50 EDT , Service support [phone], RAD/Bone Survey Comp(Axial AND Append) IMPRESSION: Degenerat anahy changes. No definite focal destructive/lytic lesions. Electronically Signed: Germán Ashford MD at 16:50 EDT , Service support [phone], CC: Jewell Coffman DO; Mateusz Pham D.O. It Operations Manager: Signed 20-Sep-2015 Spleen Result: Comments: See Note; NOTES: [facility] Imaging Services [address] [place] [address] Verdana 4d Spleen MR#: [id number] Acct: [id number] Name: LISETTE CRISOSTOMO p #: [id number] : 1950 F 65 From: Riccardo Vazquez MD PCP: Jewell Coffman DO Status: REG CLI Study: Spleen Date of Exam: 09/20/15 Exam# [id number] Ordering Dr: Mtaeusz Pham DO STUDY: A BDOMINAL ULTRASOUND - [...] Vazquez MD at 14: 09 EDT Tel [phone], Service support [phone], CC: Jewell Coffman DO; Mateusz Pham D.O. It Operations Manager: Signed 09-Sep-2015 EKG (60848) Comments: ekg showed normal sinus rhythym, normal axis, no acute st/t wave changes Result: [MEASUREMENTS ANALYSIS] Date of Test: 09/09/2015 12:22:24; Heart Rate: 65; TN Interval: 168; QRS: 82; QT Interval: 392; Corrected QT Interval (QTc): 400; P Wave [place]: 36; QRS Wave [place]: 24; T Wave [place]: 22; Blood Pressure: 102/62 [ECG DIAGNOSTIC STATEMENTS] Date of Test: 09/09/2015 12:22:24; Summary: Sinus Rhythm WITHIN NORMAL LIMITS 08-Feb-2015 Operative Report Result: Comments: See Note; NOTES: [facility] Medical Records Department [address] [place] [address] Operative Report MR#: [id number] Acct: [id number] Name: DINORA CRISOSTOMO Rep #: [id number] : 1950 64 From: Jan Yoder MD [...] Siobhan Evans C: Jewell Coffman DO T: [facility] JOB: [id number] 02/08/15 1434 <Electronically signed by Jan Yoder MD> Date ___ Jan Yoder MD Cosigner Signature (If Indicated): Date CC: Jewell Coffman DO; Jan Yoder Date Dictate d: 02/08/15812 Date Transcribed: 02/08/15812 It Operations Manager: Signed 17-Nov-2014 Garett Carcamo Digital AND CAD Result: Comments: See Note; NOTES: [facility] Imaging Services [address] [place] [address] Breast Imaging Report MR#: [id number] Acct: [id number] Name: JONAHDonteLISETTE M Rep #: [id number] : 1950 F 64 From: Riccardo Vazquez MD PCP: Jewell Coffman DO Status: REG CLI Study: Garett Carcamo Digital AND CAD Date of Exam: 11/17/14 Exam# [id number] Ordering Dr: Mary Hilario MD MAMMOGRAPHY - [...] Riccardo Vazquez MD at 14:50 EDT Tel [phone], Service support [phone], CC: Jewell Coffman DO; Mary Hilario MD It Operations Manager: Signed 05-Jan-2014 PT Discharge Summary Result: Comments: See Note; NOTES: [facility] Physical Therapy [facility] [address] [place] [address]. [address] [place] [address] Fax REHABILITATION SERVICES DISCHARGE SUMMARY MR#: [id number] Acct: [id number] Name: LISETTE CRISOSTOMO Rep #: [id number] : 1950 63 From: Iesha Starr Referring [...] our clinic. Sincerely, Iesha Starr, PT T: SARAH JOB: [id number] <Aryall y signed by Iesha Starr > 01/05/14 1351 CC: Signed 16-Nov-2013 Garett Carcamo Digital & CAD Result: Comments: See Note; NOTES: [facility] Imaging Services [address] [place] [address] Breast Imaging Report MR#: [id number] Acct: [id number] Name: LISETTE CRISOSTOMO Rep # : [id number] : 1950 F 63 From: Riccardo Vazquez MD PCP: Jewell Coffman DO Status: REG CLI Exam# [id number] Ordering Dr: Mary Hilario MD MAMMOGRAPHY - [...] will be sent to the patient by doctors hospital facility within 30 days. Approximately 10% of breast cancers are not detected by mammography. A normal mammogram should not delay biopsy of a clinically suspicious abnormality. Electronically S igned: Riccardo Vazquez MD at 14:47 EDT Tel [phone], Service support [phone], CC: Jewell Coffman DO; Mary Hilario MD It Operations Manager: Signed 14-Aug-2013 Inital Evaluation - PT Result: Comments: See Note; NOTES: [facility] Physical Therapy [facility] [address] [facility] [place] [address] Fax REHABILITATION SERVICES INITIAL EVALUATION MR#: [id number] Acct: [id number] Name: LISETTE CRISOSTOMO Rep #: [id number] : 1950 62 From: Iesha Starr Referring Dr.: Concha Ford Status: DIS RCR Insurance: [facility] Date: DATE OF SERVICE: 07/21/2013 REFERRING PHYSICIAN: [...] a diagnosis of hemiarthrosis of the pelvis. TN OBLEMS: 1. Increased pain. 2. Decreased hip strength. GOALS: 1. Independent with home exercise program. 2. Decrease pain with fwj-zz-woero to 0/10. 3. Increase left hip strength [...] needed. Iesha Starr, PT T: NTS JOB: [id number] <Electronically signed by Iesha Starr > 0 08/14/13 1426 CC: Signed For Medicare only, by signing this I certify the plan of care. Physicians Signature Date 07-Jul-2013 Hip min 2 Views Result: Comments: See Note; NOTES: [facility] Imaging Services [address] [place] [address] Radiology Report MR#: [id number] Acct: [id number] Name: DAYAMI CRISOSTOMOGOYO Zamudio Rep #: [id number] : 1950 F 62 From: Nakul Hernandez DO PCP: Jewell Coffman DO Status: REG CLI Study: Hip min 2 Views Date of Exam: 07/07/13 Exam# [id number] Ordering Dr: Concha Ford STUDY: X-RAY - [...] D.O. at 21:51 EDT , Service support [phone], RAD/Hip min 2 Views IMPRES LUCIA: Minimal degenerative changes of the left hip. Electronically Signed: Nakul Hernandez D.O. at 21:51 EDT , Service support [phone], CC: Lizz Ford; Jewell Coffman DO It Operations Manager: Signed Family History Unknown Family Member Name [...] smoker Vital Signs Date Test Result Details 88-Cgu-794860:50 Temperature 98.5 f Comments: Method: Temporal Pulse [...] kg/m2 Body Surface Area Calculated 1.63 m2 2-Qju-535618:31 Temperature 98.2 f Comments: Method: Temporal Pulse [...] kg/m2 Body Surface Area Calculated 1.62 m2 :43 Temperature 98.7 f Comments: Method: Temporal Pulse [...] kg/m2 Body Surface Area Calculated 1.62 m2 18-Vyx-393646:02 Pulse 69 /min Comments: Pattern: Regular Respiration [...] Surface Area Calculated 1.49 m2 :09 [facility] Pulse 67 /min Comments: Pattern: Regular Respiration [...] Date Description Value Details :22 Throat Culture (62138) Comments: PATIENT NOT FASTINGPERFORMED BY: PERRY [facility] [address] [place] [id number] Information: SRC:TH Result 1 RRF (Normal) Comments: Routine respiratory fred Upper Respiratory Culture Final report (Normal) :19 HgA1C , Office (91507) HgA1C , Office 5.5 % (Normal) Range: 4.6 - 7.1 :19 Blood Glucose , Office (91837) Blood Glucose , Office 141 (Normal) :15 CBC W/Diff, Automated Comments: [facility] [address] [place], [address] Absolute Lymph 2.76 {X10_3/ul} (Normal) Range: 0.83-4.51 [...] 4.2-5.4 WBC 7.5 K/mm3 (Normal) Range: 4.4-11.0 :15 Comprehensive Metabolic Profil Comments: [facility] [address] [place], [place], [address] GAP 8 (Normal) Range: 5-15 CO2 25.0 [...] A.D.A. criteria.Please note revised GLUCOSE reference range xgwfukkcj75/02/2018. 36-Ute-27107:15 Lipid Profile Comments: [facility] [address] [place], [place], [address] VLDL 34 mg/dL (Normal) Range: 5-40 LDL [...] 200-240 mg/dL Borderline >240 mg/dL High Risk 33-Fam-99268:15 Microalb:Creat Ratio,Random UR Comments: PT UTO TOOK CONTAINER HOME [facility] [address] [place], [address] MALB:CREAT 6.2 {mg/g_CRE} (Normal) MICROALBUMIN,UR 9.9 mg/L (Normal) UR CREAT 159.00 mg/dL (Normal) 89-Zxa-43455:15 Thyroid Stim Hormone (TSH) Comments: [facility] [address] [place], [address] TSH 1.77 {uIU/mL} (Normal) Range: 0.358-3.74 19-Evi-00761:15 Urinalysis, Complete Comments: PT UTO TOOK CONTAINER HOME WILL RETURN TODAYHow was Urine Obtained? [facility] [address] [place], [address] MUCUS, URINE 0 SEEN {/hpf} (Normal) BACTERIA [...] CLARITY Sl. Cloudy (Normal) COLOR Yellow (Normal) 50-Tzf-12269:15 Vitamin D,25 Hydroxy Comments: [facility] [address] [place], [address] Vitamin D 25-OH 18.3 ng/mL (Abnormal) Range: 29.95-100.01 Comments: Vitamin D 25(OH) Status Range Deficiency <20 ng/mL (50nmol/L) Insuffciency 20 - 30 ng/mL (50 - 75 nmol/L) Sufficiency 30 - 100 ng/mL (75 - 250 nmol/L) Toxicity >100 ng/mL (>250 nmol/L) 07-Djq-266348:56 Soluble Transferrin Comments: PATIENT NOT FASTINGPERFORMED BY: [employer] [facility] HospitalBrown and Meyer EnterprisesSloop Memorial Hospital [id number] BY: [employer] [id number] Receptor (03415) Soluble Transferrin Receptor 27.3 nmol/L (Normal) Range: 12.2-27.3 24-Qwc-293854:56 SPEP (91225) Comments: PATIENT NOT FASTINGPERFORMED BY: [employer]70 [employer] [facility] HospitalBrown and Meyer EnterprisesSloop Memorial Hospital [id number] BY: [employer] [id number] PDF . (Normal) Please note: SPRCS (Normal) Comments: Protein electrophoresis scan will follow via computer, mail, orcourier delivery. A/G Ratio 0.9 (Normal) Range: 0.7-1.7 Globulin, Total 4.0 g/dL (Abnormal) Range: 2.2-3.9 M-Isaias Not Observed g/dL (Normal) Gamma Globulin 1.8 g/dL (Normal) Range: 0.4-1.8 Beta Globulin 1.2 g/dL (Normal) Range: 0.7-1.3 Uuhpg-4-Zapzitfy 0.7 g/dL (Normal) Range: 0.4-1.0 Sdnkg-2-Rssgklko 0.3 g/dL (Normal) Range: 0.0-0.4 Albumin 3.5 g/dL (Normal) Range: 2.9-4.4 Protein, Total 7.5 g/dL (Normal) Range: 6.0-8.5 :56 UPEP (02016) Comments: PATIENT NOT FASTINGPERFORMED BY: InsportantCommunity Medical CenterOnqwtt8516 [facility] [id number] BY: [address] [id number] PDF . (Normal) Please note: SPRCS (Normal) Comments: Protein electrophoresis scan will follow via computer, mail, orcourier delivery. M-Isaias, % Not Observed % (Normal) Gamma Globulin, U 13.3 % (Normal) Beta Globulin, U 34.4 % (Normal) Hfyus-4-Vcrarjpp, U 10.6 % (Normal) Tfyvf-6-Juvigige, U 3.5 % (Normal) Albumin, U 38.2 % (Normal) Protein,Total,Urine 9.2 mg/dL (Normal) 79-Jnr-157581:56 BUZZ TEST, DIRECT Comments: PATIENT NOT FASTINGPERFORMED BY: [employer] [id number] BY: [address] [id number] (04795) Buzz', Direct Negative (Normal) 51-Bre-680764:56 FOLIC ACID SERUM (45070) Comments: PATIENT NOT FASTINGPERFORMED BY: [employer] [id number] BY: [address] [id number] Folate (Folic Acid), Serum 13.1 ng/mL (Normal) Comments: A serum folate concentration of less than 3.1 ng/mL isconsidered to represent clinical deficiency. 66-Mxs-401168:56 Methymalonic Acid, Serum Comments: PATIENT NOT FASTINGPERFORMED BY: [facility]6370 [facility] [id number] BY: [address] [id number] ([address]) Disclaimer: SPRCS (Normal) Comments: This test was developed and its performance characteristicsdetermined by [employer]. It has not been cleared or approvedby the Food and Drug Administration. Methylmalonic Acid, Serum 227 nmol/L (Normal) Range: 0-378 71-Dxg-421219:56 VITAMIN B-12 Comments: PATIENT NOT FASTINGPERFORMED BY: [place] [id number] [facility] [id number] BY: [address] [id number] (CYANOCOBALAMIN) (13568) Vitamin B12 663 pg/mL (Normal) Range: 232-1245 95-Ohe-342818:56 RETICULOCYTE COUNT MANUL Comments: PATIENT NOT FASTINGPERFORMED BY: [place] [id number] [facility] [id number] BY: [address] [id number] (74005) Reticulocyte Count 1.8 % (Normal) Range: 0.6-2.6 02-Xue-101459:56 LDH (LD) (LACTATE Comments: PATIENT NOT FASTINGPERFORMED BY: [facility]6370 [facility] [id number] BY: [address] [id number] DEHYDROGENASE) (65108) LDH 218 [iU]/L (Normal) Range: 119-226 73-Zgb-833833:56 IRON BINDING CAPACITY Comments: PATIENT NOT FASTINGPERFORMED BY: [place] [id number] [facility] [id number] BY: [address] [id number] (TIBC) (53861) Iron Saturation 17 % (Normal) Range: 15-55 Iron 69 ug/dL (Normal) Range: 27-139 UIBC 338 ug/dL (Normal) Range: 118-369 Iron Bind.Cap.(TIBC) 407 ug/dL (Normal) Range: 250-450 17-Crp-994364:56 FERRITIN (81010) Comments: PATIENT NOT FASTINGPERFORMED BY: [facility] CenterPdmfxm4387 [facility] [id number] BY: [address] [id number] Ferritin, Serum 21 ng/mL (Normal) Range: 15-150 45-Jqg-914652:56 HAPTOGLOBIN (77538) Comments: PATIENT NOT FASTINGPERFORMED BY: [employer] Jjuheh1329 [facility] [id number] BY: Ins[employer]ant[address] [id number] Haptoglobin 89 mg/dL (Normal) Range: 34-200 18-Otd-228797:56 CBC, PLATELETS & AUT DIFF Comments: PATIENT NOT FASTINGPERFORMED BY: [employer] Nhrlxh8715 [facility] [id number] BY: Ins[address]ant[address] [id number] (84335) Immature Grans (Abs) 0.0 {x10E3/uL} (Normal) Range: [...] (Normal) Range: 3.4-10.8 :07 HgA1C , Office (75313) HgA1C , Office 5.6 % (Normal) Range: 4.6 - 7.1 :07 Blood Glucose , Office (88198) Blood Glucose , Office 170 (Normal) :36 CBC W/Diff, Automated Comments: [facility] [address] [place], [place], [address] Absolute Lymph 3.43 {X10_3/ul} (Normal) Range: 0.83-4.51 [...] 4.2-5.4 WBC 9.7 K/mm3 (Normal) Range: 4.4-11.0 70-Qxy-65379:36 Comprehensive Metabolic Profil Comments: PLEASE ADD PREALBUMIN TO LIPID,TSH,CMP Y64WcccetgOhio State [facility]ing Hospital [address]wkev[address] [place], [place], [address] GAP 10 (Normal) Range: 5-15 CO2 24.0 [...] Lipid Profile Comments: PLEASE ADD PREALBUMIN TO LIPID,TSH,[address] [place], [address] VLDL 21 mg/dL (Normal) Range: [...] :36 Prealbumin Comments: PLEASE ADD PREALBUMIN TO LIPID,TSH,[address] [place], [address] PREALBUMIN 30.5 mg/dL (Normal) Range: 20.0-40.0 :36 Thyroid Stim Hormone (TSH) Comments: PLEASE ADD PREALBUMIN TO LIPID,TSH,[address] [place], [address] TSH 2.39 {uIU/mL} Range: 0.358-3.74 (Normal) 5-Nwj-367436:3 ASPIRATION (SLIDES ONLY) See Note (Normal) Comments: [facility] [address] [place], [address] 0 Comments: Patient: LISETTE CRISOSTOMO : 1950 (66/F) Acct Num: [id number] Phys: Mk SALVADOR,George Unit Num: [id number] Loc: LABSPEC Specimen: [id number] Received: 09/20/16 - 1607 Spec Ty pe: ASPIRATION TISSUES TISSUES: ADDENDUM Addendum Number 1 This addendum is added to incorporate an outside pathology consultation report. The case was examined at [facility] (#[id number]) and the following diagnosis was rendered. Right [...] noted. Please make reference to previous specimen ([id number]) right cervical lymph node,FNA with diagnosis of [...] for staining. / RY:cc 09/21/16 TC:0 CPT: 86861 CYTOLOGY STUDY Slides are reviewed. DIAGNOSIS CYTOLOGY Right thyroid nodule, ultrasound-guided FNA (smears): Malignant cells present derived from papillary thyroid carcinoma. SJ:lars 09/24/16 HEADER OPERATION: Ultrasound guided righ t thyroid FNA PRE-OP DIAGNOSIS: Right thyroid nodule TISSUE SUBMITTED: Right thyroid (12 slides) Signed Mariano Contreras 09/24/16 <signature on file> 7-Jaw-009212:50 CBC W/Diff, Auto - EPLAB Comments: Order Date: 03/29/16Order Info: [id number] - *CBC w/Diff - oncology ONLYAt [facility] Medical Oncologypatients receive CBC w/auto Differential ONLY. Physicianwill place an order fo Only r a manual differential or Pathologistreview at his discretion. [facility]. [address] [place] [address] [address] COLLAR BAND CREASER: JASBIR REINA DO PH:[phone] Health [facility] [address] [place], [address] Absolute Lymph 1.92 {X10_3/uL} (Normal) [...] 4.2-5.4 WBC 8.9 K/mm3 (Normal) Range: 4.4-11.0 3-Thx-990259:50 Comprehensive Metabolic Profil Comments: Order Date: 03/29/16Order Info: [id number] - *CMP Complete Metabolic PanelOrder Info: 3084-1 - *Uric Acid BloodOrder Info: 2532-0 - *LDH -LDH (Lactate Dehydrogenase)Serial Specimen #1, #2 or #3? [facility] [address] [place], [address] GAP 5 (Normal) Range: 5-15 CO2 27.0 [...] 7-18 GLU 98 mg/dL (Normal) Range: 70-110 2-Dyl-122117:50 CHI + Protein Elect, Serum Comments: Order Date: 03/29/16Order Info: [id number] - *IMEL CHI + Prot Elec, Serum 1495Order Info: 43586-5 - *KAPLAMBDA - [place] Lamda Light ChainsIs Patient Fasting? [facility] (refer to report for specific site)refe r to report for address and phone number NOTE: Comment (Normal) Comments: Protein electrophoresis scan will follow via computer,mail, or pari mutuel ticket seller delivery. CHI RESULT,S Comment (Normal) Comments: No monoclonality detected. A/G RATIO 0.9 (Normal) Range: 0.7-1.7 GLOBULIN, TOTAL 4.2 g/dL (Abnormal) Range: 2.2-3.9 M-SPIKE g/dL (Normal) Comments: Not Observed GAMMA GLOBULIN 1.9 g/dL (Abnormal) Range: 0.4-1.8 BETA GLOBULIN 1.2 g/dL (Normal) Range: 0.7-1.3 DUFHY-7-BSVE 0.9 g/dL (Normal) Range: 0.4-1.0 DHMXZ-7-WHVC 0.3 g/dL (Normal) Range: 0.0-0.4 ALBUMIN 3.7 g/dL (Normal) Range: 2.9-4.4 IMMUNOGL M 511 mg/dL (Abnormal) Range: 26-217 IMMUNO A 252 mg/dL (Normal) Range: 87-352 IMMUNO G 1574 mg/dL (Normal) Range: 700-1600 PROTEIN,TOTAL 7.9 g/dL (Normal) Range: 6.0-8.5 :50 [place] L[employer] Chains Comments: Order Date: 03/29/16Order Info: [id number] - *IMEL CHI + Prot Elec, Serum 1495Order Info: [id number] - *KAPLAMBDA - [place] Lamda Light ChainsIs Patient Fasting? [facility] (refer to report for specific site)refe r to report for address and phone number KAPPA/LAMBDA % 1.06 (Normal) Range: 0.26-1.65 Comments: Performed at: - [facility] [place] [id number] Director: Jan Wilcox PhD, Phone: [phone] FR LAMBDA LT CH 31.7 mg/L (Abnormal) [...] (Lactate Dehydrogenase)Serial Specimen #1, #2 or #3? 1W[facility] [address] [place], [place], [address] Range: 84-246 8-Kgc-727978:50 Uric Acid Comments: Order Date: 03/29/16Order Info: [id number] - *CMP Complete Metabolic PanelOrder Info: 3084-1 - *Uric Acid BloodOrder Info: 2532-0 - *LDH -LDH (Lactate Dehydrogenase)Serial Specimen #1, #2 or #3? 1W[facility] [address] [place], [place], [address] URIC 7.1 mg/dL Range: 2.6-6.0 (Abnormal) Comments: The drugs N-Acetylcysteine and Metamizole may falsely deressthis assay. ASPIRATION (SLIDES ONLY) See Note (Normal) Comments: [facility] [address] [place], [place], [address] 70:00 Comments: Patient: LISETTE CRISOSTOMO : 1950 (66/F) Acct Num: [id number] Phys: Mk SALVADOR,George Unit Num: [id number] Loc: LABSPEC Specimen: [id number] Received: 09/12/16 - 1346 Spec Ty pe: ASPIRATION TISSUES TISSUES: ADDENDUM Addendum Number 1 This addendum is added to incorporate an outside pathology consultation report. The case was examined at [facility] (#[id number]) and the following diagnosis was rendered. Right cervical lymph nodes, fine needle aspiration: Positive for malignant cells. Metastatic carcinoma, consistent with miguel g primary. Please see complete above mentioned consultation report in EMR Addendum Signed Jasbir Nuno 10/05/16 <signature on fi le> COMMENT Immediate cytologic evaluation to determine adequacy is not applicable. Immunohistochemistry ([id number]) supports the above diagnosis. An excisional/incisional biopsy is recommen ded for further classification. Case has been reviewed in consultation with Dr. Contreras who concurs with the abovediagnosis. IDC:SJ CYTOLOGY GROSS Received are 12 smears labeled with the patient 's name and designated per the requisition as FNA right cervical lymph node. Submitted for staining. 09/12/16 TC:0 CPT: 99078 CYTOLOGY STUDY Slides are reviewed. DIAGNOSIS CYTOLOGY Rig ht cervical lymph nodes, fine needle aspiration (smears): Metastatic carcinoma. AM:lars 09/13/16 HEADER OPERATION: Ultrasound-guided fine needle aspiration right cervical lymph node PRE-OP DIAGNOSIS: Enlarged lymph nodes TISSUE SUBMITTED: FNA right cervical lymph nodes (12 slides) Signed Jasbir Nuno 09/14/16 <signature on file> IMMUNOHISTOCHEMISTRY See Note (Normal) Comments: [facility] [address] [place], [place], [address] 70:00 Comments: Patient: LISETTE CRISOSTOMO : 1950 (66/F) Acct Num: [id number] Phys: George Terrazas MD Unit Num: [id number] Loc: LABSPEC Specimen: [id number] Received: 09/13/16 - 8 Spec T ype: IMMUNO TISSUES TISSUES: SPECIMEN INFORMATION: Tissue Source: FNA right cervical lymph nodes Clinical Info: Enlarged lymph nodes Specimen Number: [id number] CPT code: 06480, 41515 x3 METHODOLOGY: Deparaffinized sections of prefer/formalin-fixed tissue [...] developed and their performance characteristics determined by [facility]. They may not have been [...] with the abovediagnosis. IDC: PHYSICIAN AND INSTITUTION [place] [id number] Signed Jasbir Nuno 09/14/16 <signature on file> 9-Aox-112208:05 Systemic Lupus Profile A Comments: PATIENT NOT FASTINGPERFORMED BY: [employer] Pkztyo4665 [facility] [id number] Anti-DNA (DS) Ab Qn 6 {IU/mL} (Normal) Range: 0-9 Comments: Negative <5 Equivocal 5 - 9 Positive >9 Sjogren's Anti-SS-B <0.2 {AI} (Normal) Range: 0.0-0.9 Sjogren's Anti-SS-A 1.2 {AI} Range: 0.0-0.9 (Abnormal) Antichromatin Antibodies <0.2 {AI} (Normal) Range: 0.0-0.9 RA Latex Turbid. <10.0 {IU/mL} Range: 0.0-13.9 (Normal) Gibson Antibodies <0.2 {AI} (Normal) Range: 0.0-0.9 VERIFY REP Antibodies <0.2 {AI} (Normal) Range: 0.0-0.9 Written Authorization WAR (Normal) Comments: PATIENT NOT FASTINGPERFORMED BY: [employer] Kndslh5069 [facility] [id number] Comments: Written Authorization Received.Authorization received from HAFSA RIOJAS [id number] by Elaina Louis 5-Xsy-999378:05 CMV ANTIBODY (16022) Comments: PATIENT NOT FASTINGPERFORMED BY: [facility] Zmivzl7683 [facility] [id number] Cytomegalovirus (CMV) Ab, IgG <0.60 U/mL (Normal) Range: 0.00-0.59 Comments: Negative <0.60 Equivocal 0.60 - 0.69 Positive >0.69 5-Arx-406967:05 CMV IGM ANTJESSICABob (13598) Comments: PATIENT NOT FASTINGPERFORMED BY: [facility]6370 [facility] [id number] Cytomegalovirus (CMV) Ab, IgM <30.0 AU/mL (Normal) Range: 0.0-29.9 Comments: Negative <30.0 Equivocal 30.0 - 34.9 Positive >34.9 A positive result is generally indicative of acute infection, reactivation or persistent IgM production. 0-Who-208550:05 EB ANTIBODY VIRAL CAPSID Comments: PATIENT NOT FASTINGPERFORMED BY: [address] [id number] (63645) X2 Interpretation: SPRCS (Normal) Comments: EBV Interpretation [...] <36.0 Equivocal 36.0 - 43.9 Positive >43.9 4-Led-113169:05 LDH (LD) (LACTATE DEHYDROGENASE) Comments: PATIENT NOT FASTINGPERFORMED BY: [place] 7714070 [facility] [id number] (67504) LDH 195 [iU]/L (Normal) Range: 119-226 8-Tzk-150689:05 JOSE ALEJANDRO (ANTINUCLEAR ANTIBODY) Comments: PATIENT NOT FASTINGPERFORMED BY: [employer] Mryhsv7528 [facility] [id number] (57104) JOSE ALEJANDRO Direct Positive (Abnormal) 8-Uhc-807123:05 C-REACTIVE PROTEIN (69858) Comments: PATIENT NOT FASTINGPERFORMED BY: [facility]6370 [facility] [id number] C-Reactive Protein, Quant 8.8 mg/L (Abnormal) Range: 0.0-4.9 :05 SED RATE ERYTHROCYTE (85172) Comments: PATIENT NOT FASTINGPERFORMED BY: [employer] Iqjplx9938 [facility] [id number] Sedimentation Rate-Westergren 20 mm/h (Normal) Range: 0-40 :05 METABOLIC PANEL, COMPREHENSIVE Comments: PATIENT NOT FASTINGPERFORMED BY: [employer] Jbkkhn2839 [facility] [id number] (40285) ALT (SGPT) 9 [iU]/L (Normal) Range: 0-32 [...] (Abnormal) Range: 65-99 :26 HgA1C , Office (32910) HgA1C , Office 5.4 % (Normal) Range: 4.6 - 7.1 :26 Blood Glucose , Office (36143) Blood Glucose , Office 134 (Normal) :28 CBC W/Diff, Automated Comments: [facility] [address] [place], [address] Absolute Lymph 2.37 {X10_3/ul} (Normal) Range: 0.83-4.51 [...] 4.2-5.4 WBC 9.5 K/mm3 (Normal) Range: 4.4-11.0 91-Tqm-94566:28 Comprehensive Metabolic Profil Comments: [facility] [address] [place], [place], [address] GAP 8 (Normal) Range: 5-15 CO2 26.0 [...] 7-18 GLU 96 mg/dL (Normal) Range: 70-110 50-Ibg-13728:28 Lipid Profile Comments: [facility] [address] [place], [address] VLDL 26 mg/dL (Normal) Range: [...] 200-240 mg/dL Borderline >240 mg/dL High Risk :28 Microalb:Creat Ratio,Random UR Comments: [facility] [address] [place], [address] MALB:CREAT 8.4 {mg/g_CRE} (Normal) MICROALBUMIN,UR 12.1 mg/L (Normal) UR CREAT 144.00 mg/dL (Normal) 70-Bbq-95416:28 Thyroid Stim Hormone (TSH) Comments: [facility] [address] [place], [address] TSH 1.74 {uIU/mL} (Normal) Range: 0.358-3.74 :28 Vitamin D,25 Hydroxy Comments: [facility] [address] [facility] [address] [facility] [place], [address] Vitamin D 25-OH 45.5 ng/mL (Normal) Comments: Vitamin D 25(OH) Status Range Deficiency <20 ng/mL (50nmol/L) Insuffciency 20 - 30 ng/mL (50 - 75 nmol/L) Sufficiency 30 - 100 ng/mL (75 - 250 nmol/L) Toxicity >100 ng/mL (>250 nmol/L) :05 HgA1C , Office (27607) HgA1C , Office 5.6 % (Normal) Range: 4.6 - 7.1 :05 Blood Glucose , Office (19250) Blood Glucose , Office 134 (Normal) :42 CBC W/Diff, Automated Comments: [facility] [address] [place], [place], [address](233) BASOPHIL 2 % (Abnormal) Range: 0-1 EOS [...] Range: 4.4-11.0 :42 Comprehensive Metabolic Profil Comments: [facility] [address] [place], [place], [address] GAP 9 (Normal) Range: 5-15 CO2 26.0 [...] (Normal) Range: 70-110 :42 Lipid Profile Comments: [facility] [address] [place], [place], [address] VLDL 28 mg/dL (Normal) Range: 5-40 LDL [...] High Risk :42 Microalb:Creat Ratio,Random UR Comments: [facility] [address] [place], [address] MALB:CREAT 5.3 {mg/g_CRE} (Normal) MICROALBUMIN,UR 7.8 mg/L (Normal) UR CREAT 146.00 mg/dL (Normal) :42 Vitamin B12 533 pg/mL (Normal) Comments: [facility] [address] [place], [address] Range: 211-911 :42 Vitamin D,25 Hydroxy Comments: [facility] [address] [place], [address] Vitamin D 25-OH 29.4 ng/mL (Normal) Comments: Vitamin D 25(OH) Status Range Deficiency <20 ng/mL (50nmol/L) Insuffciency 20 - 30 ng/mL (50 - 75 nmol/L) Sufficiency 30 - 100 ng/mL (75 - 250 nmol/L) Toxicity >100 ng/mL (>250 nmol/L) 62-Lip-119956:21 CBC W/Diff, Auto - EPLAB Comments: At [facility] Outpatient [facility] Medical Oncologypatients receive CBC w/auto Differential ONLY. Physicianwill place an order for a manual differential or Pathologistreview at his discretion. [facility] OUTPATIENT [facility]. [address] [place] [address] COLLAR BAND CREASER: JASBIR REINA DO PH:[phone] Health St[facility] [address] [place], [address] Absolute Lymph 2.05 {X10_3/uL} (Normal) Range: [...] WBC 8.7 K/mm3 (Normal) Range: 4.4-11.0 :19 Vjfh-0-Ppcdfijynfqeh, S Comments: Order Date: 04/20/16OV Order #: [id number] (refer to report for specific site)refer to report for address and phone number B2 SACOSMF67775 2.3 mg/L (Normal) Range: 0.6-2.4 Comments: Performed at: [facility] Lab[address] [id number] Director: Jan Wilcox PhD, Phone: [phone] 40-Jsd-930798:19 Comprehensive Metabolic Profil Comments: Order Date: 04/20/16OV Order #: [id number] Specimen #1, #2 or #3? [id number] [facility] [address] [place] [address], [id number] GAP 4 (Abnormal) Range: 5-15 CO2 26.0 [...] 7-18 GLU 96 mg/dL (Normal) Range: 70-110 24-Dzo-593799:19 [place] L[employer] Chains Comments: Order Date: 04/20/16 Order #: [id number] (refer to report for specific site)refer to report for address and phone number KAPPA/LAMBDA % 1.09 (Normal) Range: 0.26-1.65 Comments: Performed at: [address] [id number] Director: Jan Wilcox PhD, Phone: [phone] FR LAMBDA LT CH 23.60 mg/L (Normal) Range: 5.71-26.30 FR KAPPA LT CHN 25.70 mg/L (Abnormal) Range: 3.30-19.40 05-Vpe-611991:19 LDH 185 U/L (Normal) Comments: Order Date: 04/20/16 Order #: [id number] Specimen #1, #2 or #3? 1 [id number] State [facility]ing Hospital [address] [place], [place], [address] Range: 84-246 19-Fyp-589443:19 Protein Electro.Ur-Random Comments: Order Date: 04/20/16 Order #: [id number] (refer to report for specific site)refer to report for address and phone number NOTE Comment (Normal) Comments: Protein electrophoresis scan will follow via computer,mail, or pari mutuel ticket seller delivery.Performed at: [address] [id number] Director: Jan Wilcox PhD, Phone: [phone] M-SPIKE,U % (Normal) Comments: Not Observed GAMMA GLOB,U 29.8 % (Normal) BETA GLOB,U 36.8 % (Normal) FSNYK-7-SXGX,U 12.1 % (Normal) QDLWB-2-NTFG,U 1.9 % (Normal) ALBUMIN,UR 19.5 % (Normal) PROTEIN,UR 13.7 mg/dL (Normal) :19 Protein Electroph, S Comments: Order Date: 04/20/16OV Order #: [id number] (refer to report for specific site)refer to [...] electrophoresis scan will follow via computer,mail, or pari mutuel ticket seller delivery. A/G RATIO 0.8 (Normal) Range: 0.7-1.7 [...] (Normal) Range: 6.0-8.5 :44 HgA1C , Office (79834) Comments: Do not charge - taken by mistake!!!!! HgA1C , Office 5.8 % (Normal) Range: 4.6 - 7.1 :47 CBC W/Diff, Automated Comments: [facility] [address] [place], [place], [address] ; non-emergent till apt Absolute Lymph 2.38 [...] Range: 4.4-11.0 :47 Comprehensive Metabolic Profil Comments: [facility] [address] [place], [address] ; non-emergent till apt GAP 7 (Normal) [...] (Normal) Range: 70-110 :47 Hemoglobin A1c Comments: [facility] [address] [facility] [place], [place], [address] HGB A1C 6.1 % (Normal) Range: 4.2-6.3 :47 Lipid Profile Comments: [facility] [address] [facility] [address] [place], [place], [address] VLDL 28 mg/dL (Normal) Range: 5-40 LDL [...] High Risk :47 Microalb:Creat Ratio,Random UR Comments: [facility] [address] [facility] [address] [place], [place], [address] MALB:CREAT 6.6 {mg/g_CRE} (Normal) MICROALBUMIN,UR 6.4 mg/L (Normal) UR CREAT 96.50 mg/dL (Normal) 4-Fxq-784078:31 CBC W/Diff, Automated Comments: PERF,SMEAR PER DOCTORS ORDERWOhio State Harding Hospital [address] [place], [place], [address] PATH REV Reviewed (Normal) Comments: Mild increase [...] 4.2-5.4 WBC 7.9 K/mm3 (Normal) Range: 4.4-11.0 9-Zjy-115822:31 Miscellaneous Lab Procedure Comments: Test(s) Ordered: FLOW CYTOMETRY [id number] 1 HEP./ [facility] [address] [place], [place], [address] [facility] Comments: TEST RESULT UNITS REFERENCE INTERVALComp panel: [...] KAPPA NormalLAMBDA Normal CD64 NormalResulting Path Name:Ginette Russell, M.D.Comment:Each antibody in this assay was utilized to assess forpotential abnormalities of studied cell populatio ns or tocharacterize identified abnormalities. This test wasdeveloped and its performance characteristics determinedby [facility]. It has not been cleared or approved by the U.S.Food and Drug Administratio n. The FDA has determined thatsuch clearance or approval is not necessary. This test isused for clinical purposes. It should not be regarded asinvestigational or for research. TESTING PERFORMED AT [facility]. ORIGINAL REPORT ON FILE IN LAB CONTAINS ADDITIONAL TEST SITE INFORMATION. :31 Uric Acid Comments: [facility] [address] [place], [address] URIC 7.3 mg/dL (Abnormal) Range: 2.6-6.0 Comments: The drugs N-Acetylcysteine and Metamizole may falsely deressthis assay. :52 Bjzk-0-Hvzonmrawleeu, S Comments: [facility] (refer to report for specific site)refer to report for address and phone number B2 YVISINB26842 1.9 mg/L (Normal) Range: 0.6-2.4 :52 Comprehensive Metabolic Profil Comments: Serial Specimen #1, #2 or #3? 1WOhio State Harding Hospital [address]enwqnbvf[address] [place], [address] GAP 7 (Normal) Range: 5-15 CO2 26.0 [...] 7-18 GLU 92 mg/dL (Normal) Range: 70-110 6-Tbp-395138:52 CHI + Protein Elect, Serum Comments: Is Patient Fasting? [facility] (refer to report for specific site)refer to report for address and phone number NOTE: Comment (Normal) Comments: Protein electrophoresis scan will follow via computer,mail, or pari mutuel ticket seller delivery. CHI RESULT,S Comment (Normal) Comments: No [...] - 1.3 >6 months 0.7 - 1.3 DVTWD-8-SYVY 0.9 g/dL (Normal) Range: 0.4-1.2 Comments: Effective September 26, 2015 the reference interval for Kyrvf-7-Xblcbazb will be changing to: 0 - 30 days Not Estab. >30 days 0.4 - 1.0 JVYRH-7-SSBS 0.3 g/dL (Normal) Range: 0.1-0.4 Comments: Effective September 26, 2015 the reference interval for Orthh-1-Eqmdltkq will be changing to: 0 - 30 [...] 700-1600 PROTEIN,TOTAL 7.5 g/dL (Normal) Range: 6.0-8.5 9-Wjl-620170:52 [place] L[employer] Light Chains Comments: Is Patient Fasting? [facility] (refer to report for specific site)refer to report for address and phone number KAPPA/LAMBDA % 0.95 (Normal) Range: 0.26-1.65 Comments: Performed at: [address], [place] [id number] Director: Jan Wilcox PhD, Phone: [phone] FR LAMBDA LT CH 22.66 mg/L (Normal) Range: 5.71-26.30 FR KAPPA LT CHN 21.46 mg/L (Abnormal) Range: 3.30-19.40 :52 LDH 178 U/L (Normal) Comments: Serial Specimen #1, #2 or #3? 1[facility] [address] [place], [address] Range: 84-246 :52 Protein Electro.Ur-Random Comments: Is Patient Fasting? [facility] (refer to report for specific site)refer to report for address and phone number NOTE Comment (Normal) Comments: Protein electrophoresis scan will follow via computer,mail, or pari mutuel ticket seller delivery. M-SPIKE,U (Normal) Comments: Not Observed GAMMA GLOB,U 10.5 % (Normal) BETA GLOB,U 31.2 % (Normal) TEBDZ-9-ENTW,U 18.4 % (Normal) IBJCQ-9-RFMV,U 10.9 % (Normal) ALBUMIN,UR 28.9 % (Normal) PROTEIN,UR 12.1 mg/dL (Normal) :49 CBC W/Diff, Auto - EPLAB Comments: At [facility] Medical Oncologypatients receive CBC w/auto Differential ONLY. Physicianwill place an order for a manual differential or Pathologistreview at his discretion. [facility] OUTPATIENT [facility]. [address] [place] [address] [address] COLLAR BAND CREASER: JASBIR REINA DO PH:[phone] [address] [place], [address] Absolute Lymph 2.75 {X10_3/uL} (Normal) [...] Range: 4.4-11.0 :37 CBC W/Diff, Automated Comments: [facility] Hwzrsmfhih7425 [facility] [place], [place], [id number] Absolute Lymph 2.98 {X10_3/ul} (Normal) Range: 0.83-4.51 [...] Range: 4.4-11.0 :37 Comprehensive Metabolic Profil Comments: [facility] [address]eme[address] [place], [place], [address] ; will review at 09/08 GAP 8 [...] (Normal) Range: 70-110 :37 Hemoglobin A1c Comments: [facility] Cfyuenftlm7911 [place], [address] HGB A1C 5.9 % (Normal) Range: 4.2-6.3 :37 Immunofixation Urine Comments: [facility] (refer to report for specific site)refer to report for address and phone number [facility]I Urine Comment (Normal) Comments: No monoclonality detected.Performed at: [facility] Lab[address] [id number] Director: Jan Wilcox PhD, Phone: [phone] Immunofixation, Serum Comments: [facility] (refer to report for specific site)refer to report for address and phone number CHI RESULT,S Comment (Normal) Comments: No monoclonality detected. IMMUNOGL M 583 mg/dL (Abnormal) Range: 26-217 IMMUNO A 218 mg/dL (Normal) Range: 87-352 IMMUNO G 1451 mg/dL (Normal) Range: 700-1600 :37 [place] Lambda Light Chains Comments: [facility] (refer to report for specific site)refer to report for address and phone number; ok til apt KAPPA/LAMBDA % 0.92 (Normal) Range: 0.26-1.65 FR LAMBDA LT CH 24.29 mg/L (Normal) Range: 5.71-26.30 FR KAPPA LT CHN 22.34 mg/L (Abnormal) Range: 3.30-19.40 :37 Lipid Profile Comments: [facility] [address] [place], [place], [phone] VLDL 33 mg/dL (Normal) Range: 5-40 LDL [...] High Risk :27 CBC W/Diff, Automated Comments: [facility] [address]se[address]yk[address] [place], [place], [address] Absolute Lymph 2.70 {X10_3/ul} (Normal) Range: 0.83-4.51 [...] Range: 4.4-11.0 :27 Comprehensive Metabolic Profil Comments: [facility] [address]dfquzlc[address] [place], [place], [address] GAP 5 (Normal) Range: 5-15 CO2 27.0 [...] (Normal) Range: 70-110 :27 Hemoglobin A1c Comments: [facility] [address]wmfvf[address] [place], [place], [id number] HGB A1C 5.8 % (Normal) Range: 4.2-6.3 :27 Lipid Profile Comments: [facility] Z[address]zydhh[address] [place], [place], [phone] VLDL 35 mg/dL (Normal) Range: 5-40 LDL [...] 200-240 mg/dL Borderline >240 mg/dL High Risk : Microalb:Creat Ratio,Random UR Comments: [facility] [address] [place], [place], [address] MALB:CREAT 5.1 {mg/g_CRE} (Normal) MICROALBUMIN,UR 5.3 mg/L (Normal) UR CREAT 103.00 mg/dL (Normal) Uric Acid Comments: [facility] [address] [place], [place], [address] URIC 7.7 mg/dL (Abnormal) Range: 2.6-6.0 Comments: ADDENDA: non-emergent till apt 39-Kuk-99258:00 COLON BIOPSY (CHOOSE See Note (Normal) Comments: [facility] [address] [place], [place], [address] ; ordered by Dr. Yoder SITE) Comments: Patient: LISETTE CRISOSTOMO : 1950 (64/F) Acct Num: [id number] Phys: BebaJan Unit Num: [id number] Loc: EN Specimen: [id number] Received: 02/08/15929 Spec Type: COL ON BX TISSUES TISSUES: GROSS DESCRIPTION Received is one container labeled with the patient name and designated sigmoid colon polyp biopsy. The specimen consists of multiple irregu lar fragments of [place] soft tissue that in aggregate measure 0.5 x 0.3 x 0.1 cm. The specimen is totally submitted in one cassette. / ANTONIA:stephanie 02/08/15 TC:1 CPT: 84458 HEADER OPERATION: Rudy noscopy PRE-OP DIAGNOSIS: Screening TISSUE SUBMITTED: Sigmoid colon polyp, biopsy MICROSCOPIC DESCRIPTION Slides are reviewed. MICROSCOPIC DIAGNOSIS Sigmoid colon polyp, biopsy: Fr agments of hyperplastic polyp. ANTONIA:stephanie 02/09/15 Signed Mariano Contreras 02/09/15 <signature on file> 2-Kcw-167457:54 JOSE ALEJANDRO (ANTINUCLEAR ANTIBODY) Comments: PATIENT NOT FASTINGPERFORMED BY: [facility] Iepggu0473 [facility] [id number] BY: [address] [id number] ([address]) JOSE ALEJANDRO Direct Negative (Normal) 3-Emd-708077:54 CCP ANTIBODY (40291) Comments: PATIENT NOT FASTINGPERFORMED BY: [facility] Vkirpd8736 [facility] [id number] BY: [address] [id number] CCP Antibodies IgG/IgA 4 {units} (Normal) Range: 0-19 Comments: Negative <20 Weak positive 20 - 39 Moderate positive 40 - 59 Strong positive >59 8-Vfp-756827:54 RHEUMATOID FACTOR-QUANT Comments: PATIENT NOT FASTINGPERFORMED BY: [facility] Lioikn5468 [facility] [id number] BY: [address] [id number] Information: [id number] (40250) RA Latex Turbid. 8.1 {IU/mL} (Normal) Range: 0.0-13.9 2-Cwy-705958:54 SED RATE ERYTHROCYTE Comments: PATIENT NOT FASTINGPERFORMED BY: [facility] Zoaepa9573 [facility] [id number] BY: [address] [id number] (95188) Sedimentation Rate-Westergren 17 mm/h (Normal) Range: 0-40 1-Slk-791418:54 C-REACTIVE PROTEIN (16584) Comments: PATIENT NOT FASTINGPERFORMED BY: [facility] Twhxyk4061 [facility] [id number] BY: [address] [id number] C-Reactive Protein, Quant 4.4 mg/L (Normal) Range: 0.0-4.9 6-Idu-762450:10 HgA1C , Office (07530) HgA1C , Office 6.1 % (Normal) Range: 4.6 - 7.1 :17 CBC W/Diff, Automated Comments: Test performed at:[facility] Kjcvetgbvs8914 [facility] [address]. [place], [place] [id number] Absolute Lymph 3.10 {X10_3/ul} (Normal) Range: 0.83-4.51 [...] 4.2-5.4 WBC 8.6 K/mm3 (Normal) Range: 4.4-11.0 :17 Comprehensive Metabolic Profil Comments: Test performed at:[facility] Mipckugdxp2436 [facility]. [place], [place] [id number] GAP 5 (Normal) Range: 5-15 CO2 27.0 [...] Comments: Please note revised CREATININE reference range zvyboavjr25/22/2015. BUN 14 mg/dL (Normal) Range: 7-18 GLU 101 mg/dL (Normal) Range: 70-110 57-Fkc-90654:17 CHI + Protein Elect, Serum Comments: Is Patient Fasting? YTest performed at:[facility] Owmigpjcmc0719 [facility] 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 CHI RESULT,S Comment (Normal) Comments: An apparent polyclonal gammopathy: IgM. [place] and lambdatyping appear increased. A/G RATIO 1.0 (Normal) Range: 0.7-2.0 GLOBULIN, TOTAL 3.5 g/dL (Normal) Range: 2.0-4.5 M-SPIKE (Normal) Comments: Not Observed GAMMA GLOBULIN 1.5 g/dL (Normal) Range: 0.5-1.6 BETA GLOBULIN 1.0 g/dL (Normal) Range: 0.6-1.3 EMOZL-4-RZLG 0.8 g/dL (Normal) Range: 0.4-1.2 DSFIE-6-FSUJ 0.2 g/dL (Normal) Range: 0.1-0.4 ALBUMIN 3.4 g/dL (Normal) Range: 3.2-5.6 IMMUNOGL M 1792 637 mg/dL (Abnormal) Range: 40-230 IMMUNO A 1784 194 mg/dL (Normal) Range: 91-414 IMMUNO G 1776 1349 mg/dL (Normal) Range: 700-1600 PROTEIN,TOTAL 6.9 g/dL (Normal) Range: 6.0-8.5 :17 Immunofixation Urine Comments: Is Patient Fasting? YTest performed at:[facility] [address] [place] [id number] CHI Urine Comment (Normal) Comments: No monoclonality detected.Performed at: [facility] - [facility] [id number] Director: Jan Wilcox PhD, Phone: [phone] 55-Xhr-29781:17 Lipid Profile Comments: Test performed at:[facility] Afwmoixzvn3442 [facility] [place] [address] VLDL 34 mg/dL (Normal) Range: [...] Risk :17 Uric Acid Comments: Test performed at:[facility] Ofiuxebafw7127 [place] [address] URIC 7.4 mg/dL (Abnormal) Range: 2.6-6.0 Comments: ADDENDA: non-emergent till apt 4-Eme-170972:24 HgA1C , Office (74728) HgA1C , Office 6.2 % (Normal) Range: 4.6 - 7.1 :26 CBC W/Diff, Automated Comments: Test performed at:[facility] Avtgefqids4530 [facility] [place] [address] Absolute Lymph 3.11 {X10_3/ul} (Normal) Range: 0.83-4.51 [...] :26 Comprehensive Metabolic Profil Comments: Test performed at:[facility] Yyfbalbnye3383 [facility] [place] [address] GAP 6 (Normal) Range: 5-15 CO2 29.0 [...] 70-110 :26 Lipid Profile Comments: Test performed at:[facility] Jvwrhfolab9707 [facility]. [place], [place] [phone] VLDL 27 mg/dL (Normal) Range: 5-40 LDL [...] :26 Microalb:Creat Ratio,Random UR Comments: Test performed at:[facility] [address]hgby[address] [place] [address] MALB:CREAT 7.0 {mg/g_CRE} (Normal) MICROALBUMIN,UR 7.4 mg/L (Normal) UR CREAT 105.5 mg/dL (Normal) :26 Uric Acid Comments: Test performed at:[facility] [address]fv[address]vw[address] [place] [address] URIC 7.4 mg/dL (Abnormal) Range: 2.6-6.0 :22 HgA1C , Office (01514) HgA1C , Office 6.3 % (Normal) Range: [...] CHOL 209 mg/dL (Abnormal) Comments: <200 mg/dL Bnpoqhqbk083-216 mg/dL Borderline>240 mg/dL High Risk 12-Zog-185544:56 Free K+L Lt Chains,Qn,S Comments: PATIENT NOT FASTINGPERFORMED BY: [facility]6370 [facility] [id number] Free Lambda Lt Chains,S 16.87 mg/L (Normal) Range: 5.71-26.30 [place]/Lambda Ratio,S 0.90 (Normal) Range: 0.26-1.65 Free [place] Lt Chains,S 15.10 mg/L (Normal) Range: 3.30-19.40 31-Tvx-640028:56 Protein Electrophoresis, Serum Comments: PATIENT NOT FASTINGPERFORMED BY: [facility]6370 [facility] [id number] (SPEP) (75774) A/G Ratio 1.0 (Normal) Range: 0.7-2.0 Please note: SPRCS (Normal) Comments: Protein electrophoresis scan will follow via computer, mail, orcourier delivery. Globulin, Total 3.5 g/dL (Normal) Range: 2.0-4.5 M-Isaias Not Observed g/dL (Normal) Gamma Globulin 1.5 g/dL (Normal) Range: 0.5-1.6 Ttlkn-2-Yaulkmgo 0.9 g/dL (Normal) Range: 0.4-1.2 Beta Globulin 0.9 g/dL (Normal) Range: 0.6-1.3 Rlunl-9-Eugpupki 0.2 g/dL (Normal) Range: 0.1-0.4 Albumin 3.6 g/dL (Normal) Range: 3.2-5.6 Protein, Total, Serum 7.1 g/dL (Normal) Range: 6.0-8.5 72-Tvh-308404:56 UPEP (87851) Comments: PATIENT NOT FASTINGPERFORMED BY: [facility]6370 [facility] [id number] Please note: SPRCS (Normal) Comments: Protein electrophoresis scan will follow via computer, mail, orcourier delivery. Gamma Globulin, U 45.6 % (Normal) M-Isaias, % Comment: % (Normal) Comments: ATYPICAL GAMMA Svfmu-3-Jwfjkxyy, U 8.7 % (Normal) Beta Globulin, U 33.4 % (Normal) Albumin, U 9.4 % (Normal) Cjyrt-0-Akvwcsvn, U 2.9 % (Normal) Protein,Total,Urine 12.0 mg/dL (Normal) Range: 0.0-15.0 :09 HgA1C , Office (98003) HgA1C , Office 6.5 % (Normal) Range: [...] CHOL 180 mg/dL (Normal) Comments: <200 mg/dL Fmmheshyu879-678 mg/dL Borderline>240 mg/dL High Risk :59 LIVER Comments: SPECIMEN HEMOLYZED BID 0.08 mg/dL (Normal) Range: 0.00-0.30 ALT 55 U/L (Normal) Range: 12-78 BIT 0.30 mg/dL (Normal) Range: 0.00-1.00 ALK 65 U/L (Normal) Range: 45-117 AST 32 U/L (Normal) Range: 15-37 ALB 3.5 g/dL (Normal) Range: 3.4-5.0 TPROT 7.5 g/dL (Normal) Range: 6.4-8.2 :54 HgA1C , Office (31262) HgA1C , Office 6.4 % (Normal) Range: [...] CHOL 144 mg/dL (Normal) Comments: <200 mg/dL Kkbdscwkx551-546 mg/dL Borderline>240 mg/dL High Risk HDL 46 [...] 11.9 mg/L (Normal) tMICROCREAT 9.5 {mg/g_CRE} (Normal) 86-Vav-965073:26 HgA1C , Office (78037) HgA1C , Office 6.3 % (Normal) Range: [...] CHOL 132 mg/dL (Normal) Comments: <200 mg/dL Qrkuneqsj185-161 mg/dL Borderline>240 mg/dL High Risk :17 MIACRE tMICROCREAT 7.5 {mg/g_CRE} (Normal) MIALB 9.8 mg/L (Normal) CREU 129.4 mg/dL (Normal) :17 URIC 4.5 mg/dL (Normal) Range: 2.6-6.0 :22 HgA1C , Office (99643) HgA1C , Office 6.3 % (Normal) Range: 4.6 - 7.1 :16 HgA1C , Office (78461) HgA1C , Office 5.8 % (Normal) Range: [...] mg/dL High Risk :18 HgA1C , Office (99279) HgA1C , Office 6.3 % (Normal) Range: 4.6 - 7.1 :18 Blood Glucose , Office (69695) Blood Glucose , Office 108 (Normal) Comments: [...] (Normal) Range: 4.4-11.0 :14 CMP Comments: f/u 07/31/11 GAP 8 (Normal) [...] mg/dL High Risk :08 HgA1C , Office (35865) HgA1C , Office 6.1 % (Normal) Range: 4.6 - 7.1 :08 Blood Glucose , Office (40656) Blood Glucose , Office 98 (Normal) :16 [...] 63.1 mg/dL (Normal) :35 HgA1C , Office (44109) HgA1C , Office 6.5 % (Normal) Range: 4.6 - 7.1 :35 Blood Glucose , Office (44767) Blood Glucose , Office 101 (Normal) :20 [...] of 68%. Dictated on 11/28/10 1248 by Tanner Pittman MDTranscribed on 11/28/10 1319 by Apolinar DA SILVA by Zain SALVADOR,Tanner on 11/28/10 1414 Sign by: Tanner Pittman MD 67-Uda-70338:14 CBCD,SMEAR DIFF Comments: appt 12/11/10 RED CELL [...] (Normal) Range: 0.358-3.74 :44 HgA1C , Office (88724) HgA1C , Office 6.3 % (Normal) Range: 4.6 - 7.1 :44 Blood Glucose , Office (48497) Blood Glucose , Office 136 (Normal) :09 [...] >240 mg/dL High Risk :09 VIT D,25 49120 36.0 ng/mL (Normal) Range: 32.0-100.0 Comments: Recent studies consider the lower limit of 32.0 ng/mL to amaury threshold for optimal health.Michael GONG. J Nutr. 2004;135(2):317-22.Performed at: - [facility] [place] [address]Lab Director: Angie Grace MD, Phone: [phone] HgA1C , Office (47591) HgA1C , Office 6.6 % (Normal) Range: 4.6 - 7.1 :07 Blood Glucose , Office (96607) Blood Glucose , Office 128 (Normal) :13 [...] CHOL 148 mg/dL (Normal) Comments: <200 mg/dL Dytuycxlw605-790 mg/dL Borderline>240 mg/dL High Risk HDL 37 [...] 95.4 mg/dL (Normal) :12 HgA1C , Office (18374) HgA1C , Office 6.5 % (Normal) Range: 4.6 - 7.1 :12 Blood Glucose , Office (57050) Blood Glucose , Office 142 (Normal) :39 [...] CHOL 139 mg/dL (Normal) Comments: <200 mg/dL Vpwmctlxa717-485 mg/dL Borderline>240 mg/dL High Risk HDL 42 [...] mg/dL (Normal) Range: 5-40 :34 VIT D,25 43286 48.4 ng/mL (Normal) Range: 32.0-100.0 Comments: Recent studies consider the lower limit of 32.0 ng/mL to amaury threshold for optimal health.Michael GONG. J Nutr. 2004;135(2):317-22.Performed at: [address] [id number] Director: Pavel Wild MD 21-Jun-20090:00 Antinuclear Antibodies Comments: PERFORMED BY: Megan [address] [id number] BY: [address] [id number] Direct JOSE ALEJANDRO Direct Negative (Normal) :00 C-Reactive Protein, 1.5 mg/L (Normal) Comments: PERFORMED BY: [address] [id number] BY: [address] [id number] Quant Range: 0.0-4.9 :00 Rheumatoid Arthritis Comments: PERFORMED BY: Y8 [address] [id number] BY: PERRY [facility]6370 [facility] [id number] Factor RA Latex Turbid. 4.9 {IU/mL} Range: 0.0-13.9 (Normal) : Sedimentation 17 mm/h (Normal) Comments: PERFORMED BY: Y8 [address] [id number] BY: PERRY [facility] Center[facility]vsdxm6604 [facility] [id number] 00 Rate-Westergren Range: 0-30 :00 Strongyloides Ab IgG, MENDEZ Comments: PERFORMED BY: Y8 [address] [id number] BY: PERRY [facility]6370 [facility] [id number] Strongyloides Ab, IgG by 0.69 {IV} (Normal) [...] and its performance character istics de-termined by [employer]. It has not been approvedby the U.[place]. [...] (Normal) Range: 4.4-11.0 :34 HgA1C , Office (12424) HgA1C , Office 6.5 % (Normal) Range: 4.6 - 7.1 :34 Blood Glucose , Office (76512) Blood Glucose , Office 127 (Normal) :39 [...] CHOL 210 mg/dL (Abnormal) Comments: <200 mg/dL Bhntkkehe499-085 mg/dL Borderline>240 mg/dL High Risk HDL 41 mg/dL (Normal) Comments: Reference RangeHDL <40 mg/dL Low HDL CholesterolHDL >or= 60 mg/dL High HDL Cholesterol LDL 126 mg/dL (Normal) Range: 0-130 TRIG 216 mg/dL (Abnormal) Comments: Serum Triglycerides Reference IntervalNormal <150 mg/dLBorderline high 150 - 199 mg/dLHigh 200 - 499 mg/ dLVery High > or = 500 mg/dL 64-Fqk-218448:16 CHEST, PA AND LATERAL Radiology Report See Note (Normal) Comments: Exam Number: [id number] PA AND LATERAL VIEW OF THE CHEST EZACAEC07-hwwc-fhz woman with shortness of breath. PA AND LATERAL VIEWS OF THE CHEST Comparison of February 26, 2006. Cardiac and medi astinal silh ouettes are normal. The lungs are clear.Pleural margins are sharp. Osteopenia but no compression deformities. IMPRESSIONNo evidence of acute disease. Reported By: ELIAS BACON M.D. 74-Osl-077828:21 Urinalysis, Office (90099) UA - BILIRUBIN Negative (Normal) UA - BLOOD Negative (Normal) UA - GLUCOSE Negative (Normal) UA - KETONES Negative mg/dL (Normal) UA - LEUKOCYTE ESTERASE Negative (Normal) UA - NITRITE Negative (Normal) UA - PH 5.0 (Normal) UA - PROTEIN Negative mg/dL (Normal) UA - SPECIFIC GRAVITY 1.010 (Normal) URINE UROBILINGN ROCKY TIMED Normal mg/dL (Normal) 80-Bug-511753:14 HgA1C , Office (61583) HgA1C , Office 6.3 % (Normal) Range: 4.6 - 7.1 :14 Blood Glucose , Office (55234) Blood Glucose , Office 118 (Normal) :15 [...] T PROT 7.0 g/dL (Normal) Range: 6.4-8.2 :15 MICROALB:CRE UR MALB:CREAT 14.7 {mg/g_CRE} (Normal) MICROALBUMIN,UR 23.2 mg/L (Normal) UR CREAT 157.0 mg/dL (Normal) 83-Gcb-386640:45 [facility] [id number] Comments: CYTOLOGY INFORMATION:- CLINICAL INFORMATION: - DATE LMP/MENOPAUSE: DATE NOT GIVEN MENOPAUSE- COLLECTION VIAL: Thin Prep Vial- RISK COMPLIANCE ANALYST SOURCE: CERVICAL/ENDOCERVICAL- COLLECTION TECHNIQUE: BRUSH/SPATULA ADEQ Comment [...] no HPV testing was performed. .Performed At: [address] [id number] [facility] Comment (Normal) Comments: The Pap smear is a screening test designed to aid in thedetection of premalignant and malignant conditions of theuterine cervix. It is not a diagnostic procedure andshould not be used as the sole means of detecting cervicalcancer. Both false-positive and false-negative reports dooccur. . PERFORM Comment (Normal) Comments: Mirian Martins, Senior Java Web Application Developer ([employer]) DIAGN Comment (Normal) Comments: NEGATIVE FOR INTRAEPITHELIAL LESION AND MALIGNANCY.CELLULAR CHANGES ASSOCIATED WITH INFLAMMATION ARE PRESENT. 4-Feo-792918:18 Blood Glucose , Office (48083) Blood Glucose , Office 112 (Normal) :18 HgA1C , Office (63859) HgA1C , Office 6.0 % (Normal) Range: [...] T PROT 7.4 g/dL (Normal) Range: 6.4-8.2 29-Jeh-50803:23 CULTURE, URINE URINE CULTURE See Note {CFU/mL} (Normal) Comments: COLONY COUNT <1000 ORGANISM 1: MIXED GRAM POS & NEG ORGANISMS :33 Urinalysis, Office (62776) UA - BILIRUBIN Negative (Normal) UA - BLOOD Negative (Normal) UA - GLUCOSE Negative (Normal) UA - KETONES Negative mg/dL (Normal) UA - LEUKOCYTE ESTERASE Negative (Normal) UA - NITRITE Negative (Normal) UA - PH 5.0 (Normal) UA - PROTEIN Negative mg/dL (Normal) UA - SPECIFIC GRAVITY 1.015 (Normal) URINE UROBILINGN ROCKY TIMED 2 mg/dL (Normal) :32 HgA1C , Office (57753) HgA1C , Office 6.1 % (Normal) Range: 4.6 - 7.1 :32 Blood Glucose , Office (05011) Blood Glucose , Office 112 (Normal) :17 [...] (Normal) Range: 6.4-8.2 :42 HgA1C , Office (71410) HgA1C , Office 5.9 % (Normal) Range: 4.6 - 7.1 :42 Blood Glucose , Office (80581) Blood Glucose , Office 116 (Normal) :32 [...] 500 mg/dL VLDL 51 mg/dL (Abnormal) Range: 5-40 :32 LIVER ALB 3.4 g/dL (Normal) Range: 3.4-5.0 ALK P 71 U/L (Normal) Range: 50-136 ALT 38 [iU]/L (Normal) Range: 30-65 AST 23 U/L (Normal) Range: 15-37 D BILI 0.05 mg/dL (Normal) Range: 0.00-0.30 T BILI 0.30 mg/dL (Normal) Range: 0.00-1.00 T PROT 7.2 g/dL (Normal) Range: 6.4-8.2 :19 Blood Glucose , Office (15427) Blood Glucose , Office 107 (Normal) Comments: :19 HgA1C , Office (49059) HgA1C , Office 5.8 % (Normal) Range: [...] Range: 0.34-4.82 :55 Blood Glucose , Office (08239) Blood Glucose , Office 138 (Normal) Comments: 2HPPBS :45 ALDOST,U24 4291 Comments: 24 H URINE TV = 1230 ML ALDOSTERONE,U24 10 {ug/24_hr} (Normal) Range: 2-21 Comments: 1 mo. 1 - 11 1- 12 mos. 1 - 22 1- 16 yrs. 2 - 16 Adult Ranges Normal diet 2 - 21 Low salt 17 - 44 High salt 0 - 14Performed At: [address] [id number] ALDOSTERONE,UR 8 ug/L (Normal) :45 FUNMI U24 [id number] Comments: 24 H URINE TV = 1230 ML CORTISOL,FR U24 59 {ug/24_hr} (Normal) CORTISOL,U FREE 48 ug/L (Normal) :15 CAT+VMA [id number] DOPAMINE,U24 195 Range: 65-610 {ug/24_hr} Comments: TESTING PERFORMED AT [facility]. ORIGINAL REPORT ON FILE IN LAB CONTAINS ADDITIONAL TEST SITE INFORMATION. (Normal) DOPAMINE,UR 186 ug/L (Normal) EPINEPHRINE, 7 ug/L UR (Normal) EPINEPHRINE,U 7 Range: 0-24 24 {ug/24_hr} (Normal) NOREPINEPH,U2 46 Range: 0-140 4 {ug/24_hr} (Normal) NOREPINEPH,UR 44 ug/L (Normal) VMA,24UR 4.3 Range: 1.8-6.7 {mg/24_hr} (Normal) VMA,UR 4.1 mg/L (Normal) :15 METAN,U24 4234 METANEPH,U24 112 {ug/24_hr} (Normal) Range: 35-460 Comments: Performed At: [address] [id number] METANEPHRINE,UR 107 ug/L (Normal) NORMETANEPH,U24 336 {ug/24_hr} (Normal) Range: 110-1050 NORMETANEPH,UR 320 ug/L (Normal) :42 MYOCARD PERF SPECT REST/STRESS Radiology Report See Note (Normal) Comments: Exam Number: [id number] MYOCARDIAL PERFUSION SCAN 12.6 millicuries of Tc99m [...] 7.2 g/dL (Normal) Range: 6.4-8.2 :49 H.PYLORI 606439 < 0.9 U/mL (Normal) Range: 0.0-0.8 Comments: Negative <0.9 Indeterminate 0.9 - 1.0 Positive >1.0Performed At: [facility] Lrdizs2425 [place], [place] [id number] :49 TSH 1.86 {uIU/mL} (Normal) Range: 0.34-4.82 :26 HgA1C , Office (35168) Comments: [facility] HgA1C , Office 5.7 % (Normal) Range: 4.6 - 7.1 :26 Blood Glucose , Office (14097) Comments: [facility] Blood Glucose , Office 116 (Normal) :00 [...] Range: 5-40 :35 Blood Glucose , Office ([id number]) Blood Glucose , Office 140 (Normal) :34 HgA1C , Office (60252) HgA1C , Office 6.8 % (Normal) Range: 4.6 - 7.1 :10 GLUP 154 mg/dL (Abnormal) Comments: GLU,2HPPG 75gm GLUC PPG GLUP from [id number]. Comments: Glucose result from 140 to <200 mg/dL suggestsIMPAIRED GLUCOSE HOMEOSTASIS per A.D.A. criteria. [id number] CBCD,SMEAR DIFF BAND 1 % (Normal) Range: [...] mg/dL VLDL 32 mg/dL (Normal) Range: 5-40 [id number] TSH 1.49 {uIU/mL} (Normal) Range: 0.34-4.82 Plan [...] cell neoplasm of lung, left : Reviewed [employer] Letter Indication: Nonsquamous nonsmall cell neoplasm of [...] level Elevated serum globulin level : Reviewed [employer] Letter Indication: Elevated serum globulin level Controlled diabetes mellitus type II without complication : Follow up in 3 months Indication: Controlled diabetes mellitus type II without complication Monoclonal gammopathy : Reviewed Lab Indication: Monoclonal gammopathy Monoclonal gammopathy : Reviewed Diagnostic Tests Indication: Monoclonal gammopathy Monoclonal gammopathy : Reviewed [employer] Letter Indication: Monoclonal gammopathy Controlled diabetes mellitus [...] hypertension Planned Observations Rapid Strep Test, Office ([id number])Indication: Sore throat On: 8-Dex-952898:56 Request Cologuard - Strool Based DNA Test, CRC SCREEN ([id number])Indication: Encounter for screening for malignant neoplasm of rectum On: 13-Bnh-985432:48 Request CALCIFEDIOL ([id number])Indication: Vitamin D deficiency On: 57-Hrv-226753:35 Request MICROALBUMIN: CREATININE RATIO ([id number]) AND ([id number])Indication: Benign essential hypertension On: 16-Mrp-488206:34 Request URINALYSIS, W/ MICRO ([id number])Indication: Benign essential hypertension On: 52-Tnq-820379:34 Request TSH ([id number])Indication: Benign essential hypertension On: 55-Gmo-425026:34 Request Lipid Panel ([id number])Indication: Mixed hyperlipidemia On: 06-Uqk-953663:34 Request CBC WITH MANUAL DIFF ([id number])Indication: Benign essential hypertension On: 89-Uuo-950826:34 Request Metabolic Panel, Comprehensive ([id number])Indication: Vitamin D deficiency On: 49-Qhs-979728:34 Request FECAL OCCULT- Tubes sent home ([id number])Indication: Anemia, unspecified (Renamed from Anemia) On: 75-Yyp-200395:18 Request IRON ([id number])Indication: Anemia, unspecified (Renamed from Anemia) On: 06-Nyj-606919:18 Request TSH (THYROID STIMULATING HORMONE) ([id number])Indication: Benign essential hypertension On: 49-Xgx-286898:02 Request LIPID PANEL ([id number])Indication: Mixed hyperlipidemia On: 60-Hod-246255:59 Request METABOLIC PANEL, COMPREHENSIVE ([id number])Indication: Lymphadenopathy, cervical On: :58 Request CBC, PLATELETS & AUT DIFF ([id number])Indication: Lymphadenopathy, cervical On: 39-Arr-842864:58 Request EB ANTIBODY NUCLR ANTIGN ([id number])Indication: Lymphadenopathy, cervical On: 0-Fyk-033826:39 Request MICROALBUMIN: CREATININE RATIO ([id number]) AND ([id number])Indication: Controlled diabetes mellitus type II without complication On: 9-Xqk-671707:03 Request CALCIFEDIOL ([id number])Indication: Controlled diabetes mellitus type II without complication On: : Request TSH (THYROID STIMULATING HORMONE) ([id number])Indication: Controlled diabetes mellitus type II without complication On: 8-Mkf-432263:03 Request LIPID PANEL ([id number])Indication: Controlled diabetes mellitus type II without complication On: : Request METABOLIC PANEL, COMPREHENSIVE ([id number])Indication: Controlled diabetes mellitus type II without complication On: 9-Pwc-131868: Request CBC, PLATELETS & AUT DIFF ([id number])Indication: Controlled diabetes mellitus type II without complication On: 2-Ftu-389202:03 Request MICROALBUMIN: CREATININE RATIO ([id number]) AND ([id number])Indication: Benign essential hypertension On: 41-Dfs-814351:36 Request VITAMIN B12 AND FOLATES ([id number])Indication: Benign essential hypertension On: :36 Request CALCIFEDIOL ([id number])Indication: Benign essential hypertension On: :36 Request LIPID PANEL ([id number])Indication: Benign essential hypertension On: :36 Request METABOLIC PANEL, COMPREHENSIVE ([id number])Indication: Benign essential hypertension On: :36 Request CBC, PLATELETS & AUT DIFF ([id number])Indication: Benign essential hypertension On: :36 Request CBC with auto diff ([id number])Indication: Controlled diabetes mellitus type II without complication On: 40-Jco-120662:29 Request HGB A1C ([id number])Indication: Controlled diabetes mellitus type II without complication On: 21-Iml-555836:29 Request MICROALBUMIN: CREATININE RATIO ([id number]) AND ([id number])Indication: Controlled diabetes mellitus type II without complication On: 73-Uml-986168:29 Request METABOLIC PANEL, COMPREHENSIVE ([id number])Indication: Mixed hyperlipidemia On: :28 Request LIPID PANEL ([id number])Indication: Mixed hyperlipidemia On: :28 Request HGB A1C ([id number])Indication: Controlled diabetes mellitus type II without complication On: 00-Vtf-735791:15 Request CBC with auto diff ([id number])Indication: Allergic eosinophilia On: 89-Jrw-837785:14 Request LIPID PANEL ([id number])Indication: Mixed hyperlipidemia On: 68-Bfe-620119:14 Request METABOLIC PANEL, COMPREHENSIVE ([id number])Indication: Benign essential hypertension On: :13 Request serum free light chains ([id number])Indication: Elevated serum globulin level On: :13 Request urine immunofixation ([id number])Indication: Elevated serum globulin level On: :13 Request serum immunofixation ([id number])Indication: Elevated serum globulin level On: 42-Fph-813798:13 Request LIPID PANEL ([id number])Indication: Mixed hyperlipidemia On: 0-Ehw-600924:46 Request URIC ACID BLOOD ([id number])Indication: Gout On: 5-Qut-891510:46 Request METABOLIC PANEL, COMPREHENSIVE ([id number])Indication: Benign essential hypertension On: 1-Vdn-870071:45 Request CBC with auto diff ([id number])Indication: Allergic eosinophilia On: 4-Dzh-030537:45 Request MICROALBUMIN: CREATININE RATIO (97012) AND ([id number])Indication: Controlled diabetes mellitus type II without complication On: 5-Hrf-011278:45 Request Hemoglobin Glyclated (HGB A1C) ([id number])Indication: Controlled diabetes mellitus type II without complication On: 5-Ejf-823847:45 Request URIC ACID BLOOD ([id number])Indication: Gout On: 8-Zry-654513:54 Request LIPID PANEL ([id number])Indication: Mixed hyperlipidemia On: 2-Vgr-170544:52 Request METABOLIC PANEL, COMPREHENSIVE ([id number])Indication: Controlled diabetes mellitus type II without complication On: 9-Rgq-930671:52 Request CBC W/AUTO DIFF WBC ([id number])Indication: Allergic eosinophilia On: 8-Cks-769171:52 Request urine immunofixation ([id number])Indication: Elevated serum globulin level On: 0-Wmy-376111:52 Request serum immunofixation ([id number])Indication: Elevated serum globulin level On: 8-Dbd-026605:52 Request URIC ACID BLOOD ([id number])Indication: Gout On: 20-Wad-514108:06 Request MICROALBUMIN: CREATININE RATIO (04872) AND ([id number])Indication: Controlled diabetes mellitus type II without complication On: :05 Request LIPID PANEL ([id number])Indication: Mixed hyperlipidemia On: :04 Request CBC W/AUTO DIFF WBC ([id number])Indication: Allergic eosinophilia On: : Request METABOLIC PANEL, COMPREHENSIVE ([id number])Indication: Controlled diabetes mellitus type II without complication On: :04 Request LIPID PANEL ([id number])Indication: Mixed hyperlipidemia On: 7-Jej-107312:43 Request CBC W/AUTO DIFF WBC ([id number])Indication: Allergic eosinophilia On: 7-Mkm-181154:43 Request METABOLIC PANEL, COMPREHENSIVE ([id number])Indication: Controlled diabetes mellitus type II without complication On: 1-Dxi-220257:43 Request serum free light chains ([id number])Indication: Elevated serum globulin level On: 40-Eoo-194154:36 Request LIPID PANEL ([id number])Indication: Mixed hyperlipidemia On: 6-Ltw-660926:17 Request METABOLIC PANEL, COMPREHENSIVE ([id number])Indication: Benign essential hypertension On: 7-Ctc-224042:17 Request CBC WITH MANUAL DIFF ([id number])Indication: Allergic eosinophilia On: 7-Ail-228251:17 Request HEPATIC FUNCTION PANEL ([id number])Indication: Abnormal finding of blood chemistry, unspecified On: 85-Pcn-172861:16 Request Comments: 2 weeks URIC ACID BLOOD ([id number])Indication: Left hip pain On: 23-Jxj-560147:44 Request LIPID PANEL (83561)Indication: Mixed hyperlipidemia On: 91-Pzw-305059:08 Request MICROALBUMIN: CREATININE RATIO (70013) AND (34914)Indication: Controlled diabetes mellitus type II without complication On: 99-Yzr-711792:08 Request CBC WITH MANUAL DIFF ([id number])Indication: Benign essential hypertension On: 75-Kcw-126056:08 Request METABOLIC PANEL, COMPREHENSIVE ([id number])Indication: Benign essential hypertension On: 50-Eka-400548:08 Request Uric Acid Blood (38351)Indication: Foot pain On: 61-Cfv-754323:41 Request CBC WITH MANUAL DIFF ([id number])Indication: Benign essential hypertension On: 26-Jxd-949896:50 Request LIPID PANEL ([id number])Indication: Mixed hyperlipidemia On: :50 Request MICROALBUMIN: CREATININE RATIO ([id number]) AND ([id number])Indication: Controlled diabetes mellitus type II without complication On: :50 Request METABOLIC PANEL, COMPREHENSIVE ([id number])Indication: Controlled diabetes mellitus type II without complication On: :50 Request METABOLIC PANEL, COMPREHENSIVE ([id number])Indication: Controlled diabetes mellitus type II without complication On: 7-Krq-296617:43 Request METABOLIC PANEL, COMPREHENSIVE ([id number])Indication: Benign essential hypertension On: :36 Request LIPID PANEL ([id number])Indication: Mixed hyperlipidemia On: :36 Request CBC WITH MANUAL DIFF ([id number])Indication: Allergic eosinophilia On: 6-Plg-771416:36 Request MICROALBUMIN: CREATININE RATIO (06063) AND ([id number])Indication: Controlled diabetes mellitus type II without complication On: 9-Mto-870269:41 Request METABOLIC PANEL, COMPREHENSIVE ([id number])Indication: Controlled diabetes mellitus type II without complication On: 9-Hqo-034647:33 Request LIPID PANEL (02706)Indication: Mixed hyperlipidemia On: :33 Request HgA1C , Office ([id number])Indication: Controlled diabetes mellitus type II without complication On: 2-Fyb-289935:17 Request LIPID PANEL ([id number])Indication: Mixed hyperlipidemia On: 19-Job-369286:45 Request METABOLIC PANEL, COMPREHENSIVE ([id number])Indication: Controlled diabetes mellitus type II without complication On: 64-Kbq-168610:45 Request CBC WITH MANUAL DIFF ([id number])Indication: Allergic eosinophilia On: 99-Upm-040336:45 Request CBC WITH MANUAL DIFF ([id number])Indication: Allergic eosinophilia On: :34 Request LIPID PANEL ([id number])Indication: Mixed hyperlipidemia On: :34 Request METABOLIC PANEL, COMPREHENSIVE (70803)Indication: Controlled diabetes mellitus type II without complication On: 85-Sqi-506328:31 Request CBC WITH MANUAL DIFF ([id number])Indication: Need for prophylactic vaccination and inoculation against influenza On: :31 Request CBC WITH MANUAL DIFF ([id number])Indication: Allergic eosinophilia On: 91-Fgh-437174:59 Request LIPID PANEL ([id number])Indication: Mixed hyperlipidemia On: 49-Hty-845809:57 Request MICROALBUMIN: CREATININE RATIO ([id number]) AND ([id number])Indication: Controlled diabetes mellitus type II without complication On: :56 Request METABOLIC PANEL, COMPREHENSIVE ([id number])Indication: Controlled diabetes mellitus type II without complication On: :56 Request TSH ([id number])Indication: Symptomatic tachycardia On: :21 Request CBC WITH MANUAL DIFF ([id number])Indication: Allergic eosinophilia On: 5-Jzm-970161:20 Request Comments: 2 weeks METABOLIC PANEL, COMPREHENSIVE ([id number])Indication: Benign essential hypertension On: 1-Bql-013276:20 Request LIPID PANEL ([id number])Indication: Mixed hyperlipidemia On: 4-Xpr-420487:19 Request LIPID PANEL ([id number])Indication: Mixed hyperlipidemia On: 8-Hyq-199839:20 Request CALCIFEDIOL (26092)Indication: POSTMENOPAUSAL STATE On: :53 Request METABOLIC PANEL, COMPREHENSIVE ([id number])Indication: Benign essential hypertension On: 53-Kkm-125664:53 Request CBC with manual diff ([id number])Indication: Benign essential hypertension On: 73-Kze-404215:53 Request LIPID PANEL ([id number])Indication: Mixed hyperlipidemia On: 60-Yia-220109:53 Request CBC WITH MANUAL DIFF ([id number])Indication: Allergic eosinophilia On: 98-Ozk-851220:40 Request Comments: 1 month after takes meds CBC WITH MANUAL DIFF ([id number])Indication: Allergic eosinophilia On: 1-Vge-799509:48 Request METABOLIC PANEL, COMPREHENSIVE ([id number])Indication: Benign essential hypertension On: :48 Request LIPID PANEL ([id number])Indication: Mixed hyperlipidemia On: 1-Sjx-635394:48 Request MICROALBUMIN: CREATININE RATIO ([id number]) AND ([id number])Indication: Controlled diabetes mellitus type II without complication On: 9-Hrd-529158:48 Request RHEUMATOID FACTOR-QUANT ([id number])Indication: Allergic eosinophilia On: :20 Request JOSE ALEJANDRO (ANTINUCLEAR ANTIBODY) ([id number])Indication: Allergic eosinophilia On: :20 Request C-REACTIVE PROTEIN ([id number])Indication: Allergic eosinophilia On: : Request SED RATE ERYTHROCYTE ([id number])Indication: Allergic eosinophilia On: :19 Request OVA & PARASITE DIR SMEAR ([id number])Indication: Allergic eosinophilia On: :14 Request LEUKOCYTE COUNT, FECAL ([id number])Indication: Allergic eosinophilia On: :14 Request C.Difficile, Stool ([id number])Indication: Allergic eosinophilia On: :14 Request MARIEL CULTURE-STOOL ([id number])Indication: Allergic eosinophilia On: :14 Request CBC WITH MANUAL DIFF ([id number])Indication: Allergic eosinophilia On: :09 Request HEPATIC FUNCTION PANEL ([id number])Indication: Mixed hyperlipidemia On: :09 Request LIPID PANEL ([id number])Indication: Mixed hyperlipidemia On: :09 Request MICROALBUMIN: CREATININE RATIO ([id number]) AND ([id number])Indication: Abnormal glucose tolerance test On: 5-Iwr-488471:44 Request HEPATIC FUNCTION PANEL ([id number])Indication: Mixed hyperlipidemia On: :34 Request LIPID PANEL ([id number])Indication: Mixed hyperlipidemia On: :34 Request CBC WITH MANUAL DIFF ([id number])Indication: Abdominal pain, unspecified abdominal location On: :51 Request HEPATIC FUNCTION PANEL ([id number])Indication: Mixed hyperlipidemia On: :49 Request LIPID PANEL (43233)Indication: Mixed hyperlipidemia On: :48 Request LIPID PANEL ([id number])Indication: Mixed hyperlipidemia On: :02 Request HEPATIC FUNCTION PANEL ([id number])Indication: Mixed hyperlipidemia On: :02 Request LIPID PANEL ([id number])Indication: Mixed hyperlipidemia On: :37 Request HEPATIC FUNCTION PANEL ([id number])Indication: Mixed hyperlipidemia On: :37 Request MICROALBUMIN URINE QUANT ([id number])Indication: Abnormal glucose tolerance test On: :02 Request URINALYSIS W/O MICRO ([id number])Indication: Abnormal glucose tolerance test On: :02 Request TSH ([id number])Indication: Abnormal glucose tolerance test On: : Request CBC WITH MANUAL DIFF ([id number])Indication: Abnormal glucose tolerance test On: : Request METABOLIC PANEL, COMPREHENSIVE (22406)Indication: Abnormal glucose tolerance test On: : Request HEPATIC FUNCTION PANEL (33844)Indication: Mixed hyperlipidemia On: : Request LIPID PANEL ([id number])Indication: Mixed hyperlipidemia On: : Request HgA1C , Office ([id number])Indication: Abnormal glucose tolerance test On: :55 Request HELICOBACTER PYLORI ANTIBODY PROFILE IgG, IgM, IgA ([id number])Indication: Epigastric pain On: 7-Riy-344852:05 Request CBC WITH MANUAL DIFF ([id number])Indication: Palpitations On: 6-Rhm-546004:45 Request METABOLIC PANEL, COMPREHENSIVE ([id number])Indication: Palpitations On: 3-Jrv-028795:45 Request TSH ([id number])Indication: Palpitations On: 3-Ifi-385419:45 Request METABOLIC PANEL, COMPREHENSIVE ([id number])Indication: Mixed hyperlipidemia On: 31-Ese-335040:04 Request LIPID PANEL ([id number])Indication: Mixed hyperlipidemia On: 34-Xxe-978500:04 Request URINALYSIS W/O MICRO ([id number])Indication: Elevated blood-pressure reading without diagnosis of hypertension On: :22 Request TSH ([id number])Indication: Elevated blood-pressure reading without diagnosis of hypertension On: :22 Request MICROALBUMIN URINE QUANT ([id number])Indication: Elevated blood-pressure reading without diagnosis of hypertension On: :22 Request METABOLIC PANEL, COMPREHENSIVE ([id number])Indication: Elevated blood-pressure reading without diagnosis of hypertension On: :22 Request CBC WITH MANUAL DIFF ([id number])Indication: Elevated blood-pressure reading without diagnosis of hypertension On: :22 Request LIPID PANEL ([id number])Indication: Mixed hyperlipidemia On: :21 Request HEPATIC FUNCTION PANEL ([id number])Indication: Mixed hyperlipidemia On: 9-Rzh-495825:20 Request GLUCOSE, PP/2 HOUR ([id number])Indication: Hypoglycemia On: 4-Hqj-750068:20 Request Planned Procedures Toradol Injection, 30 mg On: 28-Feb-2018 Intent (J1885)By: Concha Ford CNP ELECTROCARDIOGRAM, COMPLETE (ECG) On: 06-Nov-2017 Intent (56674)By: Katie Fernández DO Comments: nsr no acute cgh Katie Fernández DO CT SCAN, SOFT TISSUE NECK W/ On: 20-Aug-2016 Intent CONTRAST ([id number])By: Jolene VANCE, Comments: attention cervical lymph nodes Katie Duque DO TDAP VACCINE >7 IM (51814)By: On: 08-Aug-2016 Intent Katie Fernández DO, DO, Comments: boostrixlot [id number] 10.9.18L Dltd, IMPrefilled syringeMegan Long, LPNVIS signed Katie ELECTROCARDIOGRAM, COMPLETE (ECG) On: 19-Jul-2016 Intent (32999)By: Katie Fernández DO Comments: nsr no acute chg Katie Fernández DO Spirometry (61061)By: Danielle SALVADOR, On: 27-Dec-2015 Intent Олег MAMMOGRAM, SCREENING, BOTH BREAST On: 09-Sep-2015 Intent ([id number])By: Jewell Coffman DO EKG (18127)By: Jewell Coffman DO On: 07-Dec-2013 Intent Eprescribed prescriptions On: 05-Aug-2013 Intent (G8553)By: Jewell Coffman DO PHYSICAL THERAPY EVALUATION On: 06-Jul-2013 Intent (34589)By: Concha Ford CNP Radiology - Hip - LeftBy: Liliana On: 06-Jul-2013 Intent Concha CHAMBERS Eprescribed prescriptions On: 25-Mar-2013 Intent (G8553)By: America Molina Eprescribed prescriptions On: 09-Mar-2013 Intent (G8553)By: Pebbles Medrano EKG (55483)By: America Molina On: 22-Oct-2012 Intent Comments: ekg showed normal sinus rhythym, normal axis, no acute st/t wave changes Eprescribed prescriptions On: 21-May-2012 Intent (G8553)By: America Molina IMMUNIZ ADMNIN, 1 VAC, SNGL/COMBO On: 16-Jan-2012 Intent ([id number])By: America Molina Pneumovax (04300)By: Jesse, On: 16-Jan-2012 Intent America Eprescribed prescriptions On: 16-Jan-2012 Intent (G8553)By: America Molina EKG (14704)By: Jewell Coffman DO On: 31-Jul-2011 Intent Comments: ekg showed normal sinus rhythym, normal axis, no acute st/t wave changes no change in st segments inferiorly TD Injection , IM (31236)By: On: 04-Apr-2011 Intent America Molina Comments: [facility] 2008 FLU VAC, SPLIT, >3 YEARS, INTRAMUSC On: 04-Apr-2011 Intent ([id number])By: America Molina Comments: refuses Nuclear Stress Test/Stress On: 21-Jul-2010 Intent SPECT/TreadmillBy: Jewell Coffman DO EKG (56313)By: America Molina On: 21-Jul-2010 Intent EKG (00524)By: America Molina On: 28-Dec-2009 Intent Comments: ekg showed normal sinus rhythym, normal axis, no acute st/t wave changes no change in inferior wall Nuclear Stress Test/Stress On: 22-Sep-2008 Intent SPECT/TreadmillBy: Jewell Coffman DO Spirometry ([id number])By: Augustus VANCE, On: 22-Sep-2008 Intent Jewell [place] Comments: done km Radiology - Chest- PA and LatBy: On: 22-Sep-2008 Intent Jewell Coffman DO Pulse Oximetry (59787)By: Augustus VANCE, On: 22-Sep-2008 Intent Jewell A Comments: 97% EKG (95411)By: America Molina On: 22-Sep-2008 Intent Comments: done kmekg showed normal sinus rhythym, normal axis, no acute st/t wave changes Solu -Medrol Injection, 125 mg On: 10-May-2008 Intent ([id number])By: Jewell Coffman DO Comments: Amt: 2mlLot: OAUWWExp: 07Site: left hipTolerated: wellGiven By: JAMA Alcaraz EKG (91553)By: America Molina On: 20-Aug-2007 Intent Comments: ekg showed normal sinus rhythym, normal axis, no acute st/t wave changes Nuclear Stress Test/Stress On: 29-Aug-2006 Intent SPECT/TreadmillBy: Jewell Coffman DO Echo CompleteBy: ELLIS CHAMBERS, On: 20-Aug-2006 Intent ARTHUR EKG ([id number])By: ARTHUR CORRAL CNP On: 20-Aug-2006 Intent Comments: NSR Holter Moniter (98147)By: ELLIS On: 20-Aug-2006 Intent ARTHUR CHAMBERS Holter Moniter (72767)By: Tyler On: 22-Jul-2006 Intent HAFSA Holter Moniter (62554)By: Augustus VANCE, On: 03-Jul-2006 Intent Jewell Ríos EKG (81710)By: Jewell Coffman DO On: 26-Mar-2006 Intent Comments: [...] II without complication Encounters Office Visit On: 28-Feb-2018 10:49 Encounter Reason: [...] tests - Date: (11.06.17 - refer to [facility]Encounter Diagnosis: Non-smoker, BMI 33.0-33.9,adult, Anemia, unspecified [...] The patient does have 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 The patient has [...] for Tdap vaccination (Renamed from Need for pmoxgfttse-fhnmxog-uutqjqpuv (Tdap) vaccine, adult/adolescent) [facility] [...] well. Patient has been compliant with instructions. Curr End: 19-Apr-2016 15:41 t medication use: no [...] has been compliant with instructions. Ebony End: 25-Mar-2014 23:11 t medication use: no [...] and leg pain gone- she went to [place] and doing certain exercises and got better- [...] is beating faster actually took pulse and [id number] Encounter Diagnosis: Abnormal Glucose Tolerance Test (790.22), [...]
--- OUTSIDE RECORDS SUMMARY | 2018-05-07 02:13 | XMS RPT_ITS ---
:1950 Author Organization OHIP Care Team Providers Name Role Phone OLGA ROMAN Attending Unavailable OLGA ROMAN Attending Unavailable JAELYN, ZAINA Referring Unavailable GOKUL REGAN (MANNY-C) Referring Unavailable JAELYN, ZAINA Referring Unavailable JAELYN, ZAINA Attending Unavailable JAELYN, ZAINA Referring Unavailable DIPESH BUTLERH Attending Unavailable JAELYN, ZAINA Referring Unavailable DIPESH BUTLERH Referring Unavailable JAELYN, ZAINA Referring Unavailable JAELYN, ZAINA Referring Unavailable ARNAV ROMANIC Referring Unavailable JAELYN, ZAINA Attending Unavailable JAELYN, ZAINA Referring Unavailable JAELYN, ZAINA Referring Unavailable JAELYN, ZAINA Referring Unavailable JAELYN, ZAINA Referring Unavailable JAELYN, ZAINA Attending Unavailable JAELYN, ZAINA Referring Unavailable JAELYN, ZAINA Referring Unavailable JAELYN, ZAINA Referring Unavailable JAELYN, ZAINA Referring Unavailable JAELYN, ZAINA Attending Unavailable JAELYN, ZAINA Referring Unavailable JAELYN, ZAINA Referring Unavailable Concha Ford Attending Unavailable Jolene, Katie Primary Care Unavailable Katie Fernández Attending Unavailable Jolene, Katie Primary Care Unavailable Jolene Katie Referring Unavailable Mary Levine Attending Unavailable Mary Levine Referring Unavailable Katie Fernández Primary Care Unavailable Concha Ford Attending Unavailable Concha Ford Referring Unavailable Katie Fernández Primary Care Unavailable Jolene, Katie Primary Care Unavailable German Alvarado Attending Unavailable PROBLEMS PROBLEMS DATE TYPE CONDITION / CODE ATTENDING STATUS SOURCE 03/20/2018 Active Localized swelling, NA Active [place] mass and lump, neck Clinic Main / R22.1(ICD-10) [place] Repository 10/31/2017 Unknown I10 - Essential Jolene, Active [place] (primary) [facility] hypertension / Hospital I10(ICD-10) Repository 10/31/2017 Unknown E78.2 - Mixed Jolene, Active Justin hyperlipidemia / [facility] E78.2(ICD-10) Hospital Repository 10/31/2017 Unknown E55.9 - Vitamin D Jolene, Active [place] deficiency, [facility] unspecified / Hospital E55.9(ICD-10) Repository 07/05/2017 Active Localized edema / NA Active [place] R60.0(ICD-10) Clinic Main [place] Repository 07/05/2017 Active Other primary NA Active [place] thrombophilia / Clinic Main D68.59(ICD-10) [place] Repository 03/21/2017 Active Malignant neoplasm NA Active [place] of thyroid gland / Clinic Main C73(ICD-10) [place] Repository 06/25/2017 Active Malignant neoplasm NA Active [place] of unspecified part Clinic Main of unspecified [place] bronchus or lung / Repository C34.90(ICD-10) PROCEDURES PROCEDURES No Procedure Records FoundRESULTS RESULTS INITAL EVALUATION (1) Observed: 03/28/2018 Status: F Source: [place] - PT 12:04 PM [facility] [place] [facility] [place] [address] Fax REHABILITATION SERVICES INITIAL EVALUATION MR#: [id number] Acct: [id number] Name: LISETTE CRISOSTOMO Rep #: [id number] : 1950 67 From: Iesha BIGGS Referring DrJuan: Concha Ford NP Status: REG RCR Insurance: [employer] [facility] SELF PAY INSURANCE Patient's Visit Information LISETTE CRISOSTOMO is a 67 year old F referred to Physical Therapy by Concha Ford NP with a diagnosis of Neck pain. 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 2X/ week for 3 weeks for upper cervical distraction, MT to c-spine and mid trap and levator regions, postural exercises with HEP. No modalities at this time except mt. - Subjective Findings: Pt reports that she has been having neck pain for about 3 weeks to a month ago. You are having problems with head turns, pain in her shoulders, and occ SANCHES. She has tingling in her hands and not sure why. Pt has non small cell lung cancer that has metastasized to thyroid. Pt is R handed - Pain neck pain Pain Intensity (Out of 10): 4 - Objective c-spine AROM: Rot B 50%, flexion 100%, ext 25%, SB 50% B. UE AROM: WNL B. UE MMT: Shld flex, abd, ER/IR B 4/5. Ceo And Founder strength: R 35# and L 39#. Posture: sits with rounded shoulders and fw head. Palpation: Very tender at occiput and paraspinals, upper trap and mid trap and levator scapula area - Goals Goal 1:: I HEP Goal Time Frame: 2-4 Weeks Goal 2:: Increase neck ROM by 25% each plane. (at time of eval: Rot B 50%, flexion 100%, ext 25%, SB 50% B) Goal Time Frame: 2-4 Weeks Goal 3:: Decrease neck pain to less than 1/10 with ADL's Goal Time Frame: 2-4 Weeks Goal 4:: Sit with upright posture during treatment sessions Goal Time Frame: 2-4 Weeks - Rehabilitation Potential Rehabilitation Potential: Good - Anticipated Interventions Patient/Client Instruction: Educate patient on: Condition, Plan of Care For the Purpose of:: To decrease pain, To increase ROM, To improve nutrient delivery to tissue, To improve muscle performance and motor function, To improve ability to perform ADL's, To increase tolerance to activity/condition/position, To improve performance and independence with ADL's, To improve health of tissue, To decrease soft tissue restriction, To increase flexibility/ROM Therapeutic Exercise to Include: Strength training, Postural training, Flexibilty training, Passive ROM, Active ROM, Scapular Strength/Stabilization For the Purpose of:: To decrease pain, To increase ROM, To improve nutrient delivery to tissue, To improve muscle performance and motor function, To improve health of tissue, To decrease soft tissue restriction, To increase flexibility/ROM Manual Therapy Techniques to Include: Mobilization, Passive ROM, Soft tissue mobilization For the Purpose of:: To decrease pain, To increase ROM, To improve nutrient delivery to tissue, To improve health of tissue, To decrease soft tissue restriction, To increase flexibility/ROM Thank you for the opportunity to evaluate your patient. For Medicare and Medicare HMO plans, please review the plan of care and approve it. It will need to be FAXED BACK to us at [phone] for Medicare purposes. For Medicare only, by signing this I certify the plan of care. Please let me know if there are questions or concerns regarding this plan of care. Physician Signature: Date: <Electronically signed by Iesha BIGGS> 03/28/18 1206 CC: Concha Ford NP; Katie Fernández DO Signed PT D/C SUMMARY (1) Observed: 03/26/2018 Status: F Source: [place] 7:21 PM [facility] [place] [facility] [place] [address] Fax REHABILITATION SERVICES DISCHARGE SUMMARY MR#: [id number] Acct: [id number] Name: LISETTE CRISOSTOMO Rep #: [id number] : 1950 67 From: Iesha BIGGS Referring Dr.: Concha Ford NP Status: REG RCR Insurance: [employer] [facility] SELF PAY INSURANCE [place] - PT D/C Summary It has been my pleasure to treat LISETTE CRISOSTOMO under orders from Concha Ford NP, for the diagnosis of LBP, Sciatica for a total of 5 visit(s). Discharge Date: 03/26/18 Please see the following information for a summary of their discharge status. - Subjective Subjective: Pt reports that she is cancer free at this point and sees Dr in 3 months. Pt - Pain LBP Pain Intensity (Out of 10): 0 - Overall Improvement % Improvement: 95 - Objective Objective/Function: Pt still complains of hip burning with clam shells... but a good burn. LE MMT: B hip flex 4/5, B hip abd 4/5, B hip extension 3+/5, B knee flex and knee ext 4/5 - Goals Goal 1:: I HEP Goal Progress: Goal Met Goal 2:: Increase core and LE strength by 1/2 muscle grade (LE MMT: B hip flex 4/5, B hip abd 4/5, B hip extension 3-/5, B knee flex and knee ext 4/5) Goal Progress: Progressing Goal 3:: Decrease back pain to 2/10 with ADL's Goal Progress: Goal Met - Plan Plan: DC PT to HEP - D/C Information Discharge Comments: DC PT to HEP If there are questions or concerns regarding this patient's physical therapy, please feel free to call me at [phone]. Thank you for the referral of this patient. Sincerely, Iesha Starr <Electronically signed by Iesha Starr MPT> 03/26/18 192 CC: Concha Ford NP; Katie Fernández DO Signed PROGRESS Observed: 03/24/2018 Status: COMPLETED Source: [place] 3:06 PM [facility] REPOSITORY HNO ID: [id number] Author: Zaina Crooks Service: (none) Author Type: Physician Type: Progress Notes Filed: 03/24/2018 3:10 PM Note Text: DIAGNOSIS: Lung Adenocarcinoma diagnosed in 2017. ? BIOMARKERS: ALK IHC and FISH+ ?? STAGE: Clinical [id number]- IV (cervical and abdominal adenopathy, thyroid mets) ? METRICS: Stage 4 Was napaimute doublet chemotherapy or molecular therapy (if EGFR mutant or ALK/ROS1-rearranged) offered for PS-0-1 and no initial therapy? Yes and Pending Palliative Medicine Provider: No ? TREATMENT HISTORY: None ? CURRENT TREATMENT: Alectinib 600mg bid starting 10/29/2016; dose held for a week 11/2016 then restarted at reduced dose of 450 mg po bid 11/20/16 due to SOBOE, edema INTERVAL HISTORY: Ms. Crisostomo returns for follow up and scans on alectinib. She feels good overall, doing physical therapy for her back pain with some improvement. She also called to complain that she now has pain in her neck so a CT neck was added to her scans. Taking tylenol as needed. Also with some numbness in her hands occasionally when she awakes in the morning or holds a telephone for a prolonged period, improved with straightening arms. Stable AC. No cough or wheeze. She is able to be active without getting out of breath. No pain, no fevers or chills. Energy and appetite fine, weight down a touch. No hemoptysis. No nausea, vomiting, constipation or diarrhea. No headaches. No visual changes. She does have some mild swelling (LE, abdomen) which is better. The remainder of the review of systems is negative. REVIEW OF SYSTEMS: General: weight up, denies fatigue; denies fever, chills Skin: Denies changes in hair, itching, and rashes HEENT: Denies acute visual changes, tearing, rhinorrhea, hoarseness, and sore throat Respiratory: SOBOE as noted; + cough improving, no sputum, hemoptysis GI: Appetite as noted; denies n/v, dysphagia, diarrhea Vascular: + B/L LE edema improved Neurologic: + occasional R hand numbness, tingling unchanged PAST MEDICAL HISTORY Diagnosis Date - Allergic rhinitis - Arrhythmia - Diabetes (HCC) - Hyperlipidemia - Hypertension - Hypoglycemia, unspecified - Mental disorder - Snoring Social History Marital status: Spouse name: Years of education: Number of children: Social History Main Topics Smoking status: Former Smoker Packs/day: 0.50 Years: 35.00 Types: Cigarettes Quit date: 10/19/2016 Smokeless tobacco: Never Used Alcohol use: No Drug use: No Sexual activity: Yes Partners with: Male Performance Status: ECOG 0 PHYSICAL EXAM: Vitals BP 146/50 Pulse 80 Temp 36.6 ?C (97.8 ?F) (Oral) Resp 16 Wt 71.1 kg (156 lb 11.2 oz) LMP (LMP Unknown) SpO2 99% BMI 32.75 kg/m? General: Upon examination, Ms. Crisostomo is an age-appropriate 67 year old female. Her affect and mood are pleasant and appropriate. She is alert and oriented and in NAD. She is accompanied by her sister today. HEENT: PERRL, sclerae white, oropharynx without erythema/exudate; lips and gums without lesions Skin: No visible rashes Heart: RRR, no M/G/R noted Lungs: Normal respiratory effort; CTA B/L Vascular: Trace bilateral LE edema Abdomen: soft, non-tender to palpation Lymphatic: no palpable supra/infraclavicular nodes Neurologic: Gait is steady Laboratory Data reviewed and in EPIC CT scans reviewed and show stable disease. ASSESSMENT/PLAN: Ms. Crisostomo is a 67 year old female with metastatic ALK+ lung adenocarcinoma, with favorable response to alectinib. Continue alectinib and will see her back in 3 months. Numbness in ulnar nerve pattern related to intermittent pinched nerves. She will add PT to the neck. Signed: Zaina Crooks MD Pager Number: [phone] Date and Time of Service: Date: 03/24/2018 Time: 3:09 PM CNOVSP Observed: 03/24/2018 Status: COMPLETED Source: [place] 2:10 PM [facility] REPOSITORY Visit (SP) Office ([id number]) LISETTE CRISOSTOMO ([id number]) 1950 F Date Time Provider Department 03/24/18 2:10 PM ZAINA CROOKS [facility] During your visit today, we recorded the following information about you: Temperature Pulse Respiration Blood pressure 97.8 degrees 80/minute 16/minute 146/50 Weight 71.1 kg Kymberly Miller LPN, LPN 03/24/2018 2:41 PM Signed Additional intake questions: Has the patient had nausea, vomiting, diarrhea, constipation, fatigue for > 1 week? Diarrhea, Yes, MD Notified Does the patient have a decreased appetite? No Does patient want to see a Gifts Officer? No (yes to any of above refer patient to schedulers for dietitian appointment) ) Does patient have any new or increased numbness or tingling of extremities? Yes, hands bilaterally, bilateral feet/ right foot warmth Is patient interested in fertility information? No Does patient need any prescription refills? No Electronically Signed By: JAMA Lozano MD 03/24/2018 3:02 PM Signed Please schedule CT RETURN [address] SCHEDULING QUESTIONNAIRE Is the patient 60 or older or does the patient have diabetes or a history of kidney disease other than stones? Yes, a Creatinine level is required. WIll this be ready at time of exam? Yes - drawn at [facility] Hydration: No Is the associated diagnosis or reason for exam Peritoneal Dialysis, Prerenal Transplant, Triphasic Liver or AAA (Abdominal Aoritc Aneurism) or anything with Adrenals or does the order indicate Liver Exam, Kidney Exam or Urogram? No Is there any possibility the patient may be ? No Zaina Crooks MD 03/24/2018 3:10 PM Signed DIAGNOSIS: Lung Adenocarcinoma diagnosed in 2017. ? BIOMARKERS: ALK IHC and FISH+ ?? STAGE: Clinical F8eH3E5h- IV (cervical and abdominal adenopathy, thyroid mets) ? METRICS: Stage 4 Was napaimute doublet chemotherapy or molecular therapy (if EGFR mutant or ALK/ROS1-rearranged) offered for PS-0-1 and no initial therapy? Yes and Pending Palliative Medicine Provider: No ? TREATMENT HISTORY: None ? CURRENT TREATMENT: Alectinib 600mg bid starting 10/29/2016; dose held for a week 11/2016 then restarted at reduced dose of 450 mg po bid 11/20/16 due to SOBOE, edema INTERVAL HISTORY: Ms. Crisostomo returns for follow up and scans on alectinib. She feels good overall, doing physical therapy for her back pain with some improvement. She also called to complain that she now has pain in her neck so a CT neck was added to her scans. Taking tylenol as needed. Also with some numbness in her hands occasionally when she awakes in the morning or holds a telephone for a prolonged period, improved with straightening arms. Stable AC. No cough or wheeze. She is able to be active without getting out of breath. No pain, no fevers or chills. Energy and appetite fine, weight down a touch. No hemoptysis. No nausea, vomiting, constipation or diarrhea. No headaches. No visual changes. She does have some mild swelling (LE, abdomen) which is better. The remainder of the review of systems is negative. REVIEW OF SYSTEMS: General: weight up, denies fatigue; denies fever, chills Skin: Denies changes in hair, itching, and rashes HEENT: Denies acute visual changes, tearing, rhinorrhea, hoarseness, and sore throat Respiratory: SOBOE as noted; + cough improving, no sputum, hemoptysis GI: Appetite as noted; denies n/v, dysphagia, diarrhea Vascular: + B/L LE edema improved Neurologic: + occasional R hand numbness, tingling unchanged PAST MEDICAL HISTORY Diagnosis Date - Allergic rhinitis - Arrhythmia - Diabetes (HCC) - Hyperlipidemia - Hypertension - Hypoglycemia, unspecified - Mental disorder - Snoring Social History Marital status: Spouse name: Years of education: Number of children: Social History Main Topics Smoking status: Former Smoker Packs/day: 0.50 Years: 35.00 Types: Cigarettes Quit date: 10/19/2016 Smokeless tobacco: Never Used Alcohol use: No Drug use: No Sexual activity: Yes Partners with: Male Performance Status: ECOG 0 PHYSICAL EXAM: Vitals BP 146/50 Pulse 80 Temp 36.6 ?C (97.8 ?F) (Oral) Resp 16 Wt 71.1 kg (156 lb 11.2 oz) LMP (LMP Unknown) SpO2 99% BMI 32.75 kg/m? General: Upon examination, Ms. Crisostomo is an age-appropriate 67 year old female. Her affect and mood are pleasant and appropriate. She is alert and oriented and in NAD. She is accompanied by her sister today. HEENT: PERRL, sclerae white, oropharynx without erythema/exudate; lips and gums without lesions Skin: No visible rashes Heart: RRR, no M/G/R noted Lungs: Normal respiratory effort; CTA B/L Vascular: Trace bilateral LE edema Abdomen: soft, non-tender to palpation Lymphatic: no palpable supra/infraclavicular nodes Neurologic: Gait is steady Laboratory Data reviewed and in EPIC CT scans reviewed and show stable disease. ASSESSMENT/PLAN: Ms. Crisostomo is a 67 year old female with metastatic ALK+ lung adenocarcinoma, with favorable response to alectinib. Continue alectinib and will see her back in 3 months. Numbness in ulnar nerve pattern related to intermittent pinched nerves. She will add PT to the neck. Signed: Zaina Crooks MD Pager Number: [phone] Date and Time of Service: Date: 03/24/2018 Time: 3:09 PM Referring Provider: ZAINA CROOKS [[id number]] Allergies As of Date: 03/24/2018 Noted Allergy Reaction CODEINE 04/16/2007 5 - Intolerance PENICILLINS 04/16/2007 5 - Intolerance Date Reviewed: 03/24/2018 Reviewed by: Kymberly Bruner) JAMA Miller - Fully Assessed Reason for Visit: Established Patient [175] Follow Up [171] Primary Visit Diagnosis:Primary adenocarcinoma of lung, unspecified laterality (HCC) [C34.90] Other Visit Diagnoses:Malignant neoplasm of unspecified part of unspecified bronchus or lung (HCC) [C34.90] Neck pain [M54.2] Order(s):COMP METABOLIC PANEL [SQCMP] Order #: [id number] FUTURE CBC + DIFF [SQCBCDIF] Order #: [id number] FUTURE CT CHEST W IVCON [[id number]] Order #: [id number] FUTURE CT ABDOMEN W IVCON [[id number]] Order #: [id number] FUTURE iv contrast (will be provided with radiology test)CT Chest Abdomen-Inject, intravenously, once for 1 dose.No IV access, insert saline lock prior to the beginning of sedation, infusion, injection of imaging exam. Discontinue saline lock post exam. If Pt. has a central line or IVAD, may access for administration according to line specific nursing protocol. Once exam is complete flush line and de-access according to line specific nursing protocol in the CT contrast administration guidelines link.Disp: 1 EachRfl: 0 enteric contrast (will be provided with radiology test)For CT Chest Abdomen W IVCON order Administer, As Directed One Time Only, via Oral, Rectal, both Oral and Rectal, Enteric Tube, Stoma or Indwelling Catheter, Enteric Contrast as designated per enteric contrast guidelinesDisp: 1 EachRfl: 0 CONSULT TO PHYSICAL THERAPY [9032] Order #: [id number]: 1 Disposition: Return in about 3 months (around 06/22/2018). Follow-up and Disposition History Recorded Prescriptions as of 03/24/2018 Sig: ALECTINIB 150 MG CAPSULE Take 2 capsules by mouth twic* METOPROLOL SUCCINATE ER 25 MG* Take 25 mg by mouth once scarlet* VITAMIN K2 ORAL Take 1 tablet by mouth once d* ALBUTEROL SULFATE 90 MCG/ACTU* Inhale 2 Puffs as instructed * PROCHLORPERAZINE MALEATE 10 M* Take 1 tablet by mouth every * LORAZEPAM 1 MG TABLET take 1-2 tabs by mouth 30 min* METFORMIN ER 500 MG TABLET,EX* Take 1,500 mg by mouth daily * SIMVASTATIN 10 MG TABLET Take 10 mg by mouth daily at * FEXOFENADINE 180 MG TABLET Take 180 mg by mouth once melo* IV CONTRAST (RADIOLOGY PROCED* CT Chest Abdomen-Inject, intr* ENTERIC CONTRAST (RADIOLOGY P* For CT Chest Abdomen W IVCON * Medication notes this encounter ALBUTEROL SULFATE 90 MCG/ACTUATION BREATH ACTIVATED POWDER INHALER >> Kymberly Miller LPN, LPN 03/24/2018 2:38 PM >> KYMBERLY MILLER SatMar 24, 2018 2:38 PM Not taking Problem List As Of Date 03/24/2018 Noted Resolved Metastatic carcinoma (HCC) [C79.9] INVALID FOR*10/11/2016 Primary lung adenocarcinoma (HCC) [C34.90] INVALID FOR* Thyroid cancer (HCC) [C73] INVALID FOR*12/24/2017 Peripheral edema [R60.9] INVALID FOR* Other instructions from your clinician: Please schedule CT RETURN [address] SCHEDULING QUESTIONNAIRE Is the patient 60 or older or does the patient have diabetes or a history of kidney disease other than stones? Yes, a Creatinine level is required. WIll this be ready at time of exam? Yes - drawn at [facility] Hydration: No Is the associated diagnosis or reason for exam Peritoneal Dialysis, Prerenal Transplant, Triphasic Liver or AAA (Abdominal Aoritc Aneurism) or anything with Adrenals or does the order indicate Liver Exam, Kidney Exam or Urogram? No Is there any possibility the patient may be ? No Visit Notes: >> Kymberly Miller LPN SatMar 24, 2018 2:38 PM Status: Signed Additional intake questions: Has the patient had nausea, vomiting, diarrhea, constipation, fatigue for > 1 week? Diarrhea, Yes, MD Notified Does the patient have a decreased appetite? No Does patient want to see a Gifts Officer? No (yes to any of above refer patient to schedulers for dietitian appointment) ) Does patient have any new or increased numbness or tingling of extremities? Yes, hands bilaterally, bilateral feet/ right foot warmth Is patient interested in fertility information? No Does patient need any prescription refills? No Electronically Signed By: Kymberly Miller LPN Encounter Status:Closed by ZAINA CROOKS MD on 03/24/18 PROGRESS Observed: 03/20/2018 Status: COMPLETED Source: [place] 10:32 AM [facility] REPOSITORY [facility] ID: [id number] Author: Joceline Thrasher Service: (none) Author Type: (none) Type: Progress Notes Filed: 03/20/2018 10:32 AM Note Text: Radiology Service Progress Note PATIENT NAME: Lisette Crisostomo DATE OF SERVICE: March 20, 2018 TIME: 10:32 AM PATIENT IDENTITY VERIFICATION COMPLETED USING TWO (2) METHODS: Patient confirmed name verbally and Date of . PATIENT GENDER DATA: Female. status: : No status: NO. PATIENT RELEVANT IMPLANT DATA REVIEWED: Not Applicable CONTRAST INDUCED NEPHROPATHY RISK FACTORS: Patient age > 60 years CREATININE: Creatinine Date Value Ref Range Status 03/20/2018 0.85 0.58 - 0.96 mg/dL Final 12/23/2017 1.04 (H) 0.58 - 0.96 mg/dL Final 09/25/2017 0.93 0.58 - 0.96 mg/dL Final eGFR-All Other Races Date Value Ref Range Status 03/20/2018 >60 . Final Comment: eGFR (Estimated GFR) Units of measure: mL/min/1.73 meters squared eGFR is derived from the reexpressed MDRD Study equation using the following parameters: serum creatinine, age, gender and race. The creatinine assay has been calibrated to be traceable to IDMS. An eGFR <60 mL/min/1.73m2 for >3 months is consistent with chronic kidney disease. Refer to KDOQI guidelines for clinical interpretation. In patients with unstable renal function, e.g. those with acute kidney injury, the eGFR may not accurately reflect actual GFR. eGFR- Date Value Ref Range Status 03/20/2018 >60 Final P.O.C.T. RESULTS: POC done: Yes, See Lab Tab March 20, 2018 RADIOLOGIST NOTIFIED?: No ALLERGIES: Reviewed and unchanged CONTRAST ALLERGY: NO. PERIPHERAL IV ACCESS: Ambulatory: IV type: A peripheral IV was started in the Left antecubital site with a Angio cath: 22 gauge., Site assessment: Clean,Dry and Intact, Site disposition Discontinued RADIOLOGY DEPARTMENT: CT; Exam(s) Completed: Abdomen, Chest and Neck SIGNED BY: Joceline Grace Ct March 20, 2018 10:[address] NECK SOFT TISSUE Observed: 03/20/2018 Status: F Source: [place] Jackie IVCON 10:31 AM [facility] REPOSITORY * * *Final Report* * * DATE OF EXAM: Mar 20 2018 10:31AM [facility] 0013 - CT NECK SOFT TISSUE W IVCON / PROCEDURE REASON: Localized swelling, mass or lump of neck * * * * Physician Interpretation * * * * CT OF THE NECK WITH IV CONTRAST HISTORY: 67-year-old female with history of lung carcinoma. COMPARISON: 06/26/2017 TECHNIQUE: A series of contiguous helical scans were performed from the skull base to the aortic arch following administration of intravenous contrast. Contrast: IV: 145 ml of Omnipaque 300 CT Radiation dose: Integrated Dose-length product (DLP) for this visit = 1000 mGy*cm. CT Dose Reduction Employed: Automated exposure control(AEC) and iterative recon RESULT: Stable partially calcified 2 x 1.4 cm right tracheoesophageal groove nodule at the thoracic inlet level. Unchanged enlargement of the right thyroid lobe with multiple low-attenuation nodules. Unchanged low-attenuation nodule within the left thyroid lobe posteriorly. No cervical lymphadenopathy by size criteria. No other cervical soft tissue mass identified. Nasal cavity and oral cavity are unremarkable within limitations of artifact from dental amalgam. The pharyngeal mucosal space is normal in appearance. Prominent lingual tonsils with near complete effacement of the vallecula. The epiglottis is within normal limits and the pre-epiglottic fat is maintained. Parotid and submandibular glands are normal in appearance. Thyroid gland is unremarkable. Visualized carotid arteries and jugular veins are patent. Remainder of fascial spaces of the neck and contents are normal. Visualized intracranial contents are normal in appearance. The orbits are grossly without abnormality. The visualized paranasal sinuses are clear and the mastoid air cells are well aerated bilaterally. The imaged lung apices are clear. Infraglottic airway is patent. Osseous structures are intact. No destructive osseous lesion. Mild to moderate degenerative changes of the mid cervical spine. Severe degenerative changes of the temporomandibular joints bilaterally. IMPRESSION: Stable appearance of partially calcified right tracheoesophageal groove 2 cm nodule at the level of the thoracic inlet. Stable appearance of enlarged thyroid gland with multiple nodules. No other cervical soft tissue mass or cervical lymphadenopathy by size criteria. Circuit Breaker Assembler: PSCB Transcribe Date/Time: Mar 20 2018 10:52A Dictated by : ANATOLIY BURKETT MD This examination was interpreted and the report reviewed and electronically signed by: ANATOLIY BURKETT MD on Mar 20 2018 10:57AM EST [id number] CT ABDOMEN W IVCON Observed: 03/20/2018 Status: F Source: ROWENA 10:31 AM [facility] REPOSITORY * * *Final Report* * * DATE OF EXAM: Mar 20 2018 10:31AM [facility] 0533 - CT ABDOMEN W IVCON / PROCEDURE REASON: Malignant neoplasm of unspecified part of unspecified bronchus or lung * * * * Physician Interpretation * * * * EXAMINATION: CT ABDOMEN WITH IV CONTRAST CLINICAL HISTORY: Lung cancer TECHNIQUE: CT of the abdomen was performed using standard technique, scanning from just above the dome of the diaphragm to the iliac crest. MQ: [id number]_4 Contrast: IV: 145 ml of Omnipaque 300 Oral: 50 ml of 50ML Omnipaque [address] Radiation dose: Integrated Dose-length product (DLP) for this visit = 1000 mGy*cm. CT Dose Reduction Employed: Automated exposure control(AEC) and iterative recon COMPARISON: CT 12/23/2017 RESULT: Liver: Stable subcentimeter low-attenuation lesion in the inferior right hepatic lobe (9:39), too small to characterize but likely benign. No new lesion. Biliary: Stable mild prominence of the central intrahepatic bile ducts and the CBD, likely secondary to prior cholecystectomy. Spleen: No mass. No splenomegaly. Pancreas: No mass or duct dilation. Adrenals:No mass. Kidneys: Stable 3.3 cm exophytic right lower pole cyst. Stable bilateral subcentimeter low-attenuation lesions, too small to characterize but likely benign. GI tract: No dilation or wall thickening. Lymph nodes: Stable prominent 1.5 x 0.7 cm aortocaval (9:38) and 1.7 x 1.0 cm periportal (9:30) lymph nodes. Mesentery/Peritoneum: No ascites or mass. Retroperitoneum: No mass. Vasculature: The celiac axis and SMA are patent. The portal vein and branches, splenic vein, SMV, and hepatic veins are patent. Arterial atherosclerotic disease without aneurysm. Bones/Soft Tissues: Degenerative changes. Lower thorax: A chest CT performed will be reported separately. IMPRESSION: STABLE PROMINENT UPPER RETROPERITONEAL LYMPH NODES. NO NEW METASTATIC DISEASE IN THE ABDOMEN OR PELVIS. Circuit Breaker Assembler: PSCB Transcribe Date/Time: Mar 20 2018 11:35A Dictated by : CHITO DOUGHERTY MD This examination was interpreted and the report reviewed and electronically signed by: CHITO DOUGHERTY MD on Mar 20 2018 11:45AM EST [id number] CT CHEST W IVCON Observed: 03/20/2018 Status: F Source: ROW[place] 10:31 AM [facility] REPOSITORY * * *Final Report* * * DATE OF EXAM: Mar 20 2018 10:31AM [facility] 0539 - CT CHEST W IVCON / PROCEDURE REASON: Malignant neoplasm of unspecified part of unspecified bronchus or lung * * * * Physician Interpretation * * * * EXAMINATION: CHEST CT WITH CONTRAST CLINICAL HISTORY: Malignant neoplasm of unspecified part of unspecified bronchus or lung Technique: Spiral CT acquisition of the chest from the thoracic inlet to the upper abdomen following IV contrast. MQ: CTCWR_5 Contrast: 145 mL Omnipaque [address] Dose-Length Product: 1000 mGy*cm CT Dose Reduction Employed: Automated exposure control(AEC) and iterative recon Comparison: 12/23/2017 RESULT: Limitations: None. Lines, tubes, and devices: None. Lung parenchyma and pleura: On lung windows, clear central airways noted. Tiny nodules redemonstrated, for example right upper lobe image 68 series 5 and left upper lobe image 63. Stable subpleural opacity noted on image 90, at the level of the middle lobe bronchus. Pleural-based nodular lesion noted on the left side, image 126 redemonstrated. Scattered small cystic lucencies noted. No new or enlarging nodule readily identifiable. No pleural effusion. No pneumothorax. Thoracic inlet, heart, and mediastinum: Complete neck evaluation is deferred. No progressive axillary lymphadenopathy meeting size criteria noted. Intrathoracically, calcified heterogeneous nodular lesion in the right posterior upper paratracheal space most likely represents a pedunculated thyroid nodule extending into the mediastinum (visible back to 06/26/2017). No enlarging mediastinal or hilar lymph nodes noted. Stable 7 mm right pericardial lymph node noted on image 112 series 5 (anterior diaphragmatic lymph node). Other lymph nodes are noted near by, images 104-118 including right juxtacardiac level lymph node measuring 5-6 mm in short axis on image 116, also stable. Focal atherosclerotic calcifications of the aorta and its branches noted. Normal caliber ascending aorta is noted. Pulmonary trunk is upper limits of normal measuring 28 mm. Question focal LAD coronary artery calcifications. Focal aortic root calcifications. Left and right atria appear mildly dilated. No pericardial effusion. Stable esophagus noted. Small hiatal hernia. Bones and soft tissues: Chest wall soft tissues are unremarkable. On bone window images, mild degenerative changes of the spine noted. Upper abdomen: Complete abdominal evaluation is deferred. QB_N IMPRESSION: 1. Stable small nodules compared to prior study dated 12/23/2017. No new or enlarging nodules identifiable. 2. No enlarging lymph nodes noted, stable anterior diaphragmatic level lymph nodes (visible back to 06/26/2017). 3. Borderline biatrial dilation. Pulmonary trunk is upper limits of normal and could be associated with presence of pulmonary hypertension in the light of mild left atrial dilation. Circuit Breaker Assembler: [facility] Transcribe Date/Time: Mar 20 2018 6:24P Dictated by : LUIS NOWAK MD This examination was interpreted and the report reviewed and electronically signed by: LUIS NOWAK MD on Mar 20 2018 6:52PM EST [id number] COMP METABOLIC PANEL Collected: 03/20/2018 Status: F Source: ROW[place] 9:21 AM [facility] REPOSITORY TYPE CODE TESTS RESULT OUT OF REFERENCE UNITS RANGE LAB TP 6.3-8.0 g/dL Protein, Total 7.9 LAB ALB 3.9-4.9 g/dL Albumin Low 3.8 LAB CA 8.5-10.2 mg/dL Calcium, Total 9.3 LAB TBIL 0.2-1.3 mg/dL Bilirubin, Total 0.4 LAB ALKP 34-123 U/L Alkaline Phosphatase 111 LAB AST 13-35 U/L AST 17 LAB GLU 74-99 mg/dL Glucose 97 LAB BUN 7-21 mg/dL BUN 14 LAB CRET 0.58-0.96 mg/dL Creatinine 0.85 LAB NA 136-144 mmol/L Sodium 136 LAB K 3.7-5.1 mmol/L Potassium 4.7 LAB CL 97-105 mmol/L Chloride 102 LAB CO2 22-30 mmol/L CO2 25 LAB AGAP mmol/L Anion Gap 9 LAB ALT 7-38 U/L ALT 9 LAB GFRAA eGFR- >60 Amer. LAB GFRNAA . eGFR-All Other Races >60 Result Comment: eGFR (Estimated GFR) Units of measure: mL/min/1.73 meters squared eGFR is derived from the reexpressed MDRD Study equation using the following parameters: serum creatinine, age, gender and race. The creatinine assay has been calibrated to be traceable to IDMS. An eGFR <60 mL/min/1.73m2 for >3 months is consistent with chronic kidney disease. Refer to KDOQI guidelines for clinical interpretation. In patients with unstable renal function, e.g. those with acute kidney injury, the eGFR may not accurately reflect actual GFR. CBC AND DIFFERENTIAL Collected: 03/20/2018 Status: F Source: ROW[place] 9:20 AM [facility] REPOSITORY TYPE CODE TESTS RESULT OUT OF REFERENCE UNITS RANGE LAB WBC 3.70-11.00 k/uL WBC 9.88 LAB RBC 3.90-5.20 m/uL Low RBC 3.70 LAB HGB 11.5-15.5 g/dL Low Hemoglobin 10.4 LAB HCT 36.0-46.0 % Low Hematocrit 33.0 LAB MCV 80.0-100.0 fL MCV 89.2 LAB MCH 26.0-34.0 pG MCH 28.1 LAB MCHC 30.5-36.0 g/dL MCHC 31.5 LAB RDWCV 11.5-15.0 % RDW-CV High 17.0 LAB PLTCT 150-400 k/uL Platelet High Count 647 LAB MPV 9.0-12.7 fL MPV 10.5 LAB ANEUT % Neut% 66.5 LAB AANEUT 1.45-7.50 k/uL Abs Neut 6.57 LAB ALYMP % Lymph% 26.3 LAB AALYMP 1.00-4.00 k/uL Abs Lymph 2.60 LAB AMONO % [place]% 6.1 LAB AAMONO <0.87 k/uL Abs [place] 0.60 LAB AEOS % Eosin% 0.0 LAB AAEOS <0.46 k/uL Abs Eosin <0.03 LAB ABASO % Baso% 1.1 LAB AABASO <0.11 k/uL Abs Baso High 0.11 LAB AUNRBC 0 /100 WBC NRBCs 0.0 LAB ABNRBC <0.01 k/uL Absolute nRBC <0.01 LAB DTYP DTYPE Auto Diff Performed By: #### CBCDIF #### [facility] [address] [place] [address] INITAL EVALUATION (1) Observed: 03/12/2018 Status: F Source: JUSTIN - PT 7:21 PM [facility] [address] [place] [address]. [address] [place] [address] Fax REHABILITATION SERVICES INITIAL EVALUATION MR#: [id number] Acct: [id number] Name: LISETTE CRISOSTOMO Rep #: [id number] : 1950 67 From: Iesha Starr MPT Referring Dr.: Concha Ford NP Status: REG RCR Insurance: [facility] SELF PAY INSURANCE Patient's Visit Information LISETTE CRISOSTOMO is a 67 year old F referred to Physical Therapy by Concha Ford NP with a diagnosis of LBP, Sciatica. Date of Evaluation: 03/11/18 Physical Therapist: Iesha Starr - Visit Plan Frequency: [...] she does not know what she did. This started about 3 weeks ago. She went to hospital and did get a catcan that showed arthritis and bulging disc. Did get a cortizone shot and she has pain across LB ( no longer pain in B legs) and has pain in B shoulders. Pt has stage 4 small cell lung cancer. She has cancer in her thyroid as well. It is not cancer in her back. 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 They are watching the thyroid as well. She exercises several days a week. She goes to the [facility] and does chair yoga and strength [...] Range: 4 Comment: since the cortizone - Objective Gait: walks with normal gait pattern with [...] elbows X2 min----no increase in pain ....more stretching. Press ups X8 no increase in back pain but weakness in arms prevents her from doing more - Goals Goal 1:: I HEP Goal Time Frame: 4-6 Weeks Goal 2:: Increase core and LE strength by 1/2 muscle grade (LE MMT: B hip flex 4/5, B hip abd 4/5, B hip extension 3-/5, B knee flex and knee ext 4/5) Goal Time Frame: 4-6 Weeks Goal 3:: Decrease back pain to 2/10 with ADL's - Rehabilitation Potential Rehabilitation Potential: Good - Anticipated Interventions Patient/Client Instruction: Educate patient on: Plan of Care For the Purpose of:: To decrease pain, To increase ROM, To improve nutrient delivery to tissue, To improve muscle performance and motor function, To improve ability to perform ADL's, To increase tolerance to activity/condition/position, To improve gait and locomotor functions, To improve health of tissue, To increase flexibility/ROM Therapeutic Exercise to Include: Strength training, Body mechanics, Postural training, Active ROM, Dynamic Lumbar Stabilization, Fernandez Exercises For the Purpose of:: To decrease pain, [...] to be FAXED BACK to us at [phone] for Medicare purposes. For Medicare only, by signing this I certify the plan of care. Please let me know if there are questions or concerns regarding this plan of care. Physician Signature: Date: <Electronically signed by Iesha Starr MPT> 03/12/18 192 CC: Concha Ford NP; Katie Fernández DO Signed EMERGENCY DEPARTMENT Observed: 03/03/2018 Status: F Source: [place]K SUMMARY 3:54 PM [facility] Medical Records Department [address] [place] [address] Emergency Department Summary 03/03/18 1312 MR#: [id number] Acct: [id number] Name: LISETTE CRISOSTOMO Rep #: [id number] : 1950 67 From: German Alvarado MD PCP: Katie Fernández DO Status: [...] week, but has not had any other infectious signs or symptoms recently. No recent injections or surgeries. Patient has a history of non-small cell lung cancer that currently is undergoing treatment, and her oncologist recommended that she come to emergency department for evaluation. Physical Examination: Vitals: Within normal limits General: Well-nourished well-developed no acute distress Head: Normocephalic atraumatic ENT: Moist mucous membranes Neck: Supple no JVD Cardiovascular: Heart regular rate and rhythm no murmurs Respiratory: Respirations nondistressed, lung sounds clear to auscultation bilaterally Abdominal: Soft, nontender, nondistended, normal bowel sounds, no evidence of abdominal masses or pulsatile mass Back: Normal to inspection, no midline tenderness to palpation, straight leg raise negative bilaterally Extremities: Nontender, nonedematous, 2+ radial and PT pulses bilaterally symmetric Skin: Normal color no rash Neuro: 5/5 strength hip flexion, knee flexion, knee extension, dorsiflexion, plantarflexion, EHL. Sensation intact over all dermatomes of the lower extremities bilaterally, 2+ patellar and Achilles reflexes bilaterally symmetric, negative clonus bilaterally Test Results: CT lumbar spine shows anterolisthesis at L4- L5 with disc bulging and some central canal [...] Impression: 1. Lumbar radiculopathy secondary to L4-L5 anterolisthesis with disc bulge This note was generated with [employer] dictation software. It may contain incorrect words, spelling, and punctuation that were not noted in review of the chart prior to signing ED Disposition - Plan for ED Patient: Disposition: Home or Assisted Living Chief Complaint: Back Diagnosis: Lumbar radicular pain Instructions: ED Sciatica Referrals: Katie Fernández, DO [Primary Care Provider] - As Needed What to do if you have Problems For any increased pain, shortness of breath, bleeding, nausea or vomiting, chest pain, or any unexpected problems, contact your Primary Care Provider. Call [facility] ([phone]) or report to the closest Emergency Room. Call 911 if necessary. 03/03/18 1554 <Electronically signed by German Alvarado MD> Date German Alvarado MD Cosigner Signature (If Indicated): Date CC: Katie Fernández DO SPINE LUMBAR WITHOUT Observed: 03/03/2018 Status: F Source: JUSTIN CONTRAST 10:49 AM [facility] Imaging Services [address] [place] [id number] Spine Lumbar without Contrast MR#: [id number] Acct: [id number] Name: LISETTE CRISOSTOMO Rep #: [id number] : 1950 F 67 From: Riccardo Vazquez MD PCP: Katie Fernández DO Status: REG ER Study: Spine Lumbar without Contrast Date of Exam: 03/03/18 Exam# [id number] Ordering Dr: German Alvarado MD STUDY: CT LUMBAR SPINE WITHOUT CONTRAST REASON FOR EXAM: Female, 67 years old. Low back pain and lower extremity pain. History of stage IV lung cancer. RADIATION DOSAGE (If Supplied By Facility): CTDIvol = ( 17.07 ) mGy, DLP = ( 606.85 ) mGycm TECHNIQUE: The patient was scanned in a multi detector CT scanner. High resolution transaxial imaging was performed. Images were obtained from L1 to S1 level. Sagittal and coronal images were reconstructed. Individualized dose optimization techniques were used for this CT. COMPARISON: None FINDINGS: Normal lumbar lordosis. There is no substantial scoliosis. Normal vertebrae of the lumbar spine. L1-2: Normal endplates. Normal disc height and morphology. Normal bilateral facet joints. Normal central canal and bilateral lateral recesses. Normal bilateral intervertebral neural foramina. L2-3: Normal endplates. Normal disc height and morphology. Normal bilateral facet joints. Normal central canal and bilateral lateral recesses. Normal bilateral intervertebral neural [...] IMPRESSION: Multilevel degenerative changes, as described above. Mild degree of central spinal stenosis at the L4-L5 level due to the anterolisthesis and diffuse posterior disc bulge. Left ovarian cyst. Electronically Signed: Riccardo Vazquez MD at 12:35 EST Tel [phone], Service support , CC: Katie Alvarado Circuit Breaker Assembler: Signed PROGRESS Observed: 12/24/2017 Status: COMPLETED Source: ROWENA 2:54 PM [facility] REPOSITORY HNO ID: [id number] Author: Zaina Crooks Service: (none) Author Type: Physician Type: Progress Notes Filed: 12/24/2017 2:59 PM Note Text: DIAGNOSIS: Lung Adenocarcinoma diagnosed in 2017. ? BIOMARKERS: ALK IHC and FISH+ ?? STAGE: Clinical [id number]- IV (cervical and abdominal adenopathy, thyroid mets) ? METRICS: Stage 4 Was napaimute doublet chemotherapy or molecular therapy (if EGFR mutant or ALK/ROS1-rearranged) offered for PS-0-1 and no initial therapy? Yes and Pending Palliative Medicine Provider: No ? TREATMENT HISTORY: None ? CURRENT TREATMENT: Alectinib 600mg bid starting 10/29/2016; dose held for a week 11/2016 then restarted at reduced dose of 450 mg po bid 11/20/16 due to SOBOE, edema INTERVAL HISTORY: Ms. Crisostomo returns for follow up and scans on alectinib. She feels good, does complain of worsening breathing, especially when lying flat on her back. No cough or wheeze, wonders if her weight gain is related to the breathing. She does feel more bloated in the abdomen and that it impact breathing. She is able to be active without getting out of breath. No pain, no fevers or chills. Energy and appetite fine, weight up. No hemoptysis. No nausea, vomiting, constipation or diarrhea. She notes occasional episodes of dysphagia; denies choking. No pain. No headaches. No visual changes. She does have some mild swelling (LE, abdomen) which is better. The remainder of the review of systems is negative. REVIEW OF SYSTEMS: General: weight up, denies fatigue; denies fever, chills Skin: Denies changes in hair, itching, and rashes HEENT: Denies acute visual changes, tearing, rhinorrhea, hoarseness, and sore throat Respiratory: SOBOE as noted; + cough improving, no sputum, hemoptysis GI: Appetite as noted; denies n/v, dysphagia, diarrhea Vascular: + B/L LE edema improved Neurologic: + occasional R hand numbness, tingling unchanged PAST MEDICAL HISTORY Diagnosis Date - Allergic rhinitis - Arrhythmia - Diabetes (HCC) - Hyperlipidemia - Hypertension - Hypoglycemia, unspecified - Mental disorder - Snoring Social History Marital status: Spouse name: Years of education: Number of children: Social History Main Topics Smoking status: Former Smoker Packs/day: 0.50 Years: 35.00 Types: Cigarettes Quit date: 10/19/2016 Smokeless tobacco: Never Used Alcohol use: No Drug use: No Sexual activity: Yes Partners with: Male Performance Status: ECOG 0 PHYSICAL EXAM: Vitals BP 121/52 Pulse 76 Temp 36.7 ?C (98.1 ?F) (Oral) Resp 16 Wt 72.4 kg (159 lb 11.2 oz) LMP (LMP Unknown) SpO2 99% BMI 33.38 kg/m? General: Upon examination, Ms. Crisostomo is an age-appropriate 67 year old female. Her affect and mood are pleasant and appropriate. She is alert and oriented and in NAD. She is accompanied by her sister today. HEENT: PERRL, sclerae white, oropharynx without erythema/exudate; lips and gums without lesions Skin: No visible rashes Heart: RRR, no M/G/R noted Lungs: Normal respiratory effort; CTA B/L Vascular: Trace bilateral LE edema Abdomen: soft, non-tender to palpation Lymphatic: no palpable supra/infraclavicular nodes Neurologic: Gait is steady Laboratory Data reviewed and in EPIC CT scans reviewed and shows stable disease. ASSESSMENT/PLAN: Ms. Crisostomo is a 67 year old female with metastatic ALK+ lung adenocarcinoma, with favorable response to alectinib. Continue alectinib and will see her back in 3 months. Counseled on weight loss. Also will try prn albuterol inhaler to see if her nighttime breathing problem might be reactive airway disease. Patient refused flu shot. Signed: Zaina Crooks MD Pager Number: [phone] Date and Time of Service: Date: 12/24/2017 Time: 2:58 PM CNOVSP Observed: 12/24/2017 Status: COMPLETED Source: ROWENA 1:40 PM [facility] REPOSITORY Visit (SP) Office ([id number]) LISETTE CRISOSTOMO ([id number]) 1950 F Date Time Provider Department 12/24/17 1:40 PM ZAINA CROOKS [facility] During your visit today, we recorded the following information about you: Temperature Pulse Respiration Blood pressure 98.1 degrees 76/minute 16/minute 121/52 Weight 72.4 kg Kimberly Quintanilla, RN, RN 12/24/2017 2:39 PM Signed Additional intake questions: Has the patient had nausea, vomiting, diarrhea, constipation, fatigue for > 1 week? Diarrhea, Yes, MD Notified Does the patient have a decreased appetite? No Does patient want to see a Gifts Officer? No (yes to any of above refer patient to schedulers for dietitian appointment) ) Does patient have any new or increased numbness or tingling of extremities? No Is patient interested in fertility information? No Does patient need any prescription refills? No Electronically Signed By: NORA Huynh MD 12/24/2017 2:49 PM Signed Please schedule CT RETURN [address] SCHEDULING QUESTIONNAIRE Is the patient 60 or older or does the patient have diabetes or a history of kidney disease other than stones? Yes, a Creatinine level is required. WIll this be ready at time of exam? Yes - drawn at [facility] Hydration: No Is the associated diagnosis or reason for exam Peritoneal Dialysis, Prerenal Transplant, Triphasic Liver or AAA (Abdominal Aoritc Aneurism) or anything with Adrenals or does the order indicate Liver Exam, Kidney Exam or Urogram? No Is there any possibility the patient may be ? No Zaina Crooks MD 12/24/2017 2:59 PM Signed DIAGNOSIS: Lung Adenocarcinoma diagnosed in 2017. ? BIOMARKERS: ALK IHC and FISH+ ?? STAGE: Clinical [id number]- IV (cervical and abdominal adenopathy, thyroid mets) ? METRICS: Stage 4 Was napaimute doublet chemotherapy or molecular therapy (if EGFR mutant or ALK/ROS1-rearranged) offered for PS-0-1 and no initial therapy? Yes and Pending Palliative Medicine Provider: No ? TREATMENT HISTORY: None ? CURRENT TREATMENT: Alectinib 600mg bid starting 10/29/2016; dose held for a week 11/2016 then restarted at reduced dose of 450 mg po bid 11/20/16 due to SOBOE, edema INTERVAL HISTORY: Ms. Crisostomo returns for follow up and scans on alectinib. She feels good, does complain of worsening breathing, especially when lying flat on her back. No cough or wheeze, wonders if her weight gain is related to the breathing. She does feel more bloated in the abdomen and that it impact breathing. She is able to be active without getting out of breath. No pain, no fevers or chills. Energy and appetite fine, weight up. No hemoptysis. No nausea, vomiting, constipation or diarrhea. She notes occasional episodes of dysphagia; denies choking. No pain. No headaches. No visual changes. She does have some mild swelling (LE, abdomen) which is better. The remainder of the review of systems is negative. REVIEW OF SYSTEMS: General: weight up, denies fatigue; denies fever, chills Skin: Denies changes in hair, itching, and rashes HEENT: Denies acute visual changes, tearing, rhinorrhea, hoarseness, and sore throat Respiratory: SOBOE as noted; + cough improving, no sputum, hemoptysis GI: Appetite as noted; denies n/v, dysphagia, diarrhea Vascular: + B/L LE edema improved Neurologic: + occasional R hand numbness, tingling unchanged PAST MEDICAL HISTORY Diagnosis Date - Allergic rhinitis - Arrhythmia - Diabetes (HCC) - Hyperlipidemia - Hypertension - Hypoglycemia, unspecified - Mental disorder - Snoring Social History Marital status: Spouse name: Years of education: Number of children: Social History Main Topics Smoking status: Former Smoker Packs/day: 0.50 Years: 35.00 Types: Cigarettes Quit date: 10/19/2016 Smokeless tobacco: Never Used Alcohol use: No Drug use: No Sexual activity: Yes Partners with: Male Performance Status: ECOG 0 PHYSICAL EXAM: Vitals BP 121/52 Pulse 76 Temp 36.7 ?C (98.1 ?F) (Oral) Resp 16 Wt 72.4 kg (159 lb 11.2 oz) LMP (LMP Unknown) SpO2 99% BMI 33.38 kg/m? General: Upon examination, Ms. Crisostomo is an age-appropriate 67 year old female. Her affect and mood are pleasant and appropriate. She is alert and oriented and in NAD. She is accompanied by her sister today. HEENT: PERRL, sclerae white, oropharynx without erythema/exudate; lips and gums without lesions Skin: No visible rashes Heart: RRR, no M/G/R noted Lungs: Normal respiratory effort; CTA B/L Vascular: Trace bilateral LE edema Abdomen: soft, non-tender to palpation Lymphatic: no palpable supra/infraclavicular nodes Neurologic: Gait is steady Laboratory Data reviewed and in EPIC CT scans reviewed and shows stable disease. ASSESSMENT/PLAN: Ms. Crisostomo is a 67 year old female with metastatic ALK+ lung adenocarcinoma, with favorable response to alectinib. Continue alectinib and will see her back in 3 months. Counseled on weight loss. Also will try prn albuterol inhaler to see if her nighttime breathing problem might be reactive airway disease. Patient refused flu shot. Signed: Zaina Crooks MD Pager Number: [phone] Date and Time of Service: Date: 12/24/2017 Time: 2:58 PM Referring Provider: ZAINA CROOKS [[id number]] Allergies As of Date: 12/24/2017 Noted Allergy Reaction CODEINE 04/16/2007 5 - Intolerance PENICILLINS 04/16/2007 5 - Intolerance Date Reviewed: 12/24/2017 Reviewed by: Kimberly (Rn) NORA Quintanilla - Fully Assessed Reason for Visit: Established Patient [175] Primary Visit Diagnosis:Primary adenocarcinoma of lung, unspecified laterality (HCC) [C34.90] Other Visit Diagnosis:Mild intermittent reactive airway disease without complication [J45.20] Order(s):COMP METABOLIC PANEL [SQCMP] Order #: [id number] FUTURE CBC + DIFF [SQCBCDIF] Order #: [id number] FUTURE CT CHEST W IVCON [[id number]] Order #: [id number] FUTURE CT ABDOMEN W IVCON [[id number]] Order #: [id number] FUTURE iv contrast (will be provided with radiology test)CT Chest Abdomen-Inject, intravenously, once for 1 dose.No IV access, insert saline lock prior to the beginning of sedation, infusion, injection of imaging exam. Discontinue saline lock post exam. If Pt. has a central line or IVAD, may access for administration according to line specific nursing protocol. Once exam is complete flush line and de-access according to line specific nursing protocol in the CT contrast administration guidelines link.Disp: 1 EachRfl: 0 enteric contrast (will be provided with radiology test)For CT Chest Abdomen W IVCON order Administer, As Directed One Time Only, via Oral, Rectal, both Oral and Rectal, Enteric Tube, Stoma or Indwelling Catheter, Enteric Contrast as designated per enteric contrast guidelinesDisp: 1 EachRfl: 0 albuterol sulfate 90 mcg/actuation aepbInhale 2 Puffs as instructed four times daily as needed (wheezing or shortness of breath).Disp: 1 InhalerRfl: 3 Disposition: Return in about 3 months (around 03/25/2018). Follow-up and Disposition History Recorded Prescriptions as of 12/24/2017 Sig: METOPROLOL SUCCINATE ER 25 MG* Take 25 mg by mouth once scarlet* VITAMIN K2 ORAL Take 1 tablet by mouth once d* ALECTINIB 150 MG CAPSULE Take 2 capsules by mouth twic* PROCHLORPERAZINE MALEATE 10 M* Take 1 tablet by mouth every * LORAZEPAM 1 MG TABLET take 1-2 tabs by mouth 30 min* METFORMIN ER 500 MG TABLET,EX* Take 1,500 mg by mouth daily * SIMVASTATIN 10 MG TABLET Take 10 mg by mouth daily at * FEXOFENADINE 180 MG TABLET Take 180 mg by mouth once melo* IV CONTRAST (RADIOLOGY PROCED* CT Chest Abdomen-Inject, intr* ENTERIC CONTRAST (RADIOLOGY P* For CT Chest Abdomen W IVCON * ALBUTEROL SULFATE 90 MCG/ACTU* Inhale 2 Puffs as instructed * Problem List As Of Date 12/24/2017 Noted Resolved Metastatic carcinoma (HCC) [C79.9] INVALID FOR*10/11/2016 Primary lung adenocarcinoma (HCC) [C34.90] INVALID FOR* Thyroid cancer (HCC) [C73] INVALID FOR*12/24/2017 Peripheral edema [R60.9] INVALID FOR* Other instructions from your clinician: Please schedule CT RETURN [address] SCHEDULING QUESTIONNAIRE Is the patient 60 or older or does the patient have diabetes or a history of kidney disease other than stones? Yes, a Creatinine level is required. WIll this be ready at time of exam? Yes - drawn at [facility] Hydration: No Is the associated diagnosis or reason for exam Peritoneal Dialysis, Prerenal Transplant, Triphasic Liver or AAA (Abdominal Aoritc Aneurism) or anything with Adrenals or does the order indicate Liver Exam, Kidney Exam or Urogram? No Is there any possibility the patient may be ? No Visit Notes: >> Kimberly Diallo) NORA Quintanilla Tujo ann Dec 24, 2017 2:18 PM Status: Signed Additional intake questions: Has the patient had nausea, vomiting, diarrhea, constipation, fatigue for > 1 week? Diarrhea, Yes, Notified Does the patient have a decreased appetite? No Does patient want to see a Gifts Officer? No (yes to any of above refer patient to schedulers for dietitian appointment) ) Does patient have any new or increased numbness or tingling of extremities? No Is patient interested in fertility information? No Does patient need any prescription refills? No Electronically Signed By: Kimberly Quintanilla RN Encounter Status:Closed by ZAINA CROOKS MD on 12/24/17 MRI BRAIN WO/W Observed: 12/24/2017 Status: F Source: [place] IVCON 12:01 PM [facility] OTHER CAMPUS REPOSITORY * * *Final Report* * * DATE OF EXAM: Dec 24 2017 12:01PM [facility] 0295 - MRI BRAIN WO/W IVCON / PROCEDURE REASON: multiple diagnoses * * * * Physician Interpretation * * * * EXAMINATION: MRI BRAIN WO/W IVCON CLINICAL HISTORY: Malignant neoplasm of unspecified part of unspecified bronchus or lung Malignant neoplasm of unspecified part of unspecified bronchus or lung TECHNIQUE: Routine brain MRI protocol without and with contrast including diffusion images. MQ: MRBWOW_2 Contrast: 14 mL Dotarem IV COMPARISON: 10/02/2016 RESULT: Acute Change: There is no evidence of restricted diffusion to suggest an acute infarct. Hemorrhage: No evidence of prior parenchymal hemorrhage on the gradient echo images. Mass Lesion/ Mass Effect: No evidence of an intracranial mass or extra-axial fluid collection. No abnormal parenchymal or leptomeningeal enhancement is noted following contrast administration. No significant mass effect. Chronic Change: Minimal punctate foci of increased T2 and FLAIR signal are noted in the supratentorial white matter which is a nonspecific finding, but likely represents minimal chronic microvascular ischemia and is within expected limits for age. Parenchyma: There is mild generalized parenchymal volume loss. The brain parenchyma is otherwise within normal limits of signal intensity and morphology. Ventricles: Ventriculomegaly corresponds to the degree of parenchymal volume loss. Skull Base: Hypothalamic and pituitary region are grossly normal. Craniocervical junction is normal. No significant marrow replacement process. Vasculature: Major intracranial arterial structures, and dural venous sinuses show typical flow void, suggesting patency by spin echo criteria. Other: The visualized paranasal sinuses and mastoid air cells are clear. The orbits and extracranial soft tissues are unremarkable. Previously noted right level 3 lymph node is not included in the [id number]-[id number] of this study. IMPRESSION: No evidence of intracranial metastatic disease. Circuit Breaker Assembler: PSCB Transcribe Date/Time: Dec 24 2017 12:25P Dictated by : DON QUEVEDO MD This examination was interpreted and the report reviewed and electronically signed by: DON QUEVEDO MD on Dec 24 2017 12:28PM EST [id number] Observed: 12/23/2017 Status: COMPLETED Source: [place] 12:34 PM [facility] REPOSITORY HNO ID: [id number] Author: Joceline Grace Ct Service: (none) Author Type: (none) Type: Progress Notes Filed: 12/23/2017 12:34 PM Note Text: Radiology Service Progress Note PATIENT NAME: Lisette Crisostomo DATE OF SERVICE: December 23, 2017 TIME: 12:34 PM PATIENT IDENTITY VERIFICATION COMPLETED USING TWO (2) METHODS: Patient confirmed name verbally and Date of . PATIENT GENDER DATA: Female. status: : No status: NO. PATIENT RELEVANT IMPLANT DATA REVIEWED: Not Applicable CONTRAST INDUCED NEPHROPATHY RISK FACTORS: Patient age > 60 years CREATININE: Creatinine Date Value Ref Range Status 09/25/2017 0.93 0.58 - 0.96 mg/dL Final 06/25/2017 1.02 (H) 0.58 - 0.96 mg/dL Final 03/18/2017 0.98 (H) 0.58 - 0.96 mg/dL Final eGFR-All Other Races Date Value Ref Range Status 09/25/2017 60 . Final Comment: eGFR (Estimated GFR) Units of measure: mL/min/1.73 meters squared eGFR is derived from the reexpressed MDRD Study equation using the following parameters: serum creatinine, age, gender and race. The creatinine assay has been calibrated to be traceable to IDMS. An eGFR <60 mL/min/1.73m2 for >3 months is consistent with chronic kidney disease. Refer to KDOQI guidelines for clinical interpretation. In patients with unstable renal function, e.g. those with acute kidney injury, the eGFR may not accurately reflect actual GFR. eGFR- Date Value Ref Range Status 09/25/2017 >60 Final P.O.C.T. RESULTS: POC done: Yes, See Lab Tab December 23, 2017 RADIOLOGIST NOTIFIED?: Yes Oral Hydration: 500 ml water. ALLERGIES: Reviewed and unchanged CONTRAST ALLERGY: NO. PERIPHERAL IV ACCESS: Ambulatory: IV type: A peripheral IV was started in the Left antecubital site with a Angio cath: 22 gauge., Site assessment: Clean,Dry and Intact, Site disposition Discontinued RADIOLOGY DEPARTMENT: CT; Exam(s) Completed: Abdomen and Chest SIGNED BY: Joceline Grace Ct December 23, 2017 12:[address] ABDOMEN W IVCON Observed: 12/23/2017 Status: F Source: [place] [address]:15 AM [facility] REPOSITORY * * *Final Report* * * DATE OF EXAM: Dec 23 2017 11:15AM [facility] 0533 - CT ABDOMEN W IVCON / PROCEDURE REASON: multiple diagnoses * * * * Physician Interpretation * * * * EXAMINATION: CT ABDOMEN WITH IV CONTRAST CLINICAL HISTORY: History of lung cancer TECHNIQUE: CT of the abdomen was performed using standard technique, scanning from just above the dome of the diaphragm to the iliac crest. MQ: CTAbdW_4 Contrast: IV: 135 ml of Omnipaque 300 Oral: 50 ml of 50ML Omnipaque [address] Radiation dose: Integrated Dose-length product (DLP) for this visit = 500 mGy*cm. CT Dose Reduction Employed: Automated exposure control (AEC) COMPARISON: CT abdomen 09/25/2017 RESULT: Liver: Stable subcentimeter low-density lesion in the inferior right liver which is too small to characterize. No new enhancing liver mass is visualized. Normal hepatic morphology. Biliary: Stable ectasia of the common bile duct status post cholecystectomy. Spleen: No mass. No splenomegaly. Pancreas: No mass or duct dilation. Adrenals:No mass. Kidneys: The kidneys enhance symmetrically. There is no hydronephrosis. There is a stable 2.8 cm right renal cyst. GI tract: No dilation or wall thickening. Small hiatal hernia. Lymph nodes: No new pathologically enlarged lymph nodes are visualized. Stable appearance of previously described abdominal lymph nodes. Measurements are as follows: *Superior right paraceliac lymph node measures 1.6 x 0.6 cm on image 28, series 8 *More inferior periceliac lymph node adjacent to the right hepatic artery measures 1.7 x 0.9 cm on image 30 Mesentery/Peritoneum: No ascites or mass. Retroperitoneum: No mass. Vasculature: The celiac axis and SMA are patent. The portal vein and branches, splenic vein, SMV, and hepatic veins are patent. No abdominal aortic aneurysm. Bones/Soft Tissues: No acute abnormality. Lower thorax: CT chest is dictated separately IMPRESSION: Stable appearance of abdominal lymph nodes. No new abdominal mass is visualized. Circuit Breaker Assembler: LIAM Transcribe Date/Time: Dec 24 2017 8:49P Dictated by : MARIANNA ROD MD This examination was interpreted and the report reviewed and electronically signed by: MARIANNA ROD MD on Dec 24 2017 8:55PM EST [id number] CT CHEST W IVCON Observed: 12/23/2017 Status: F Source: [place] 11:15 AM [facility] REPOSITORY * * *Final Report* * * DATE OF EXAM: Dec 23 2017 11:15AM [facility] 0539 - CT CHEST W IVCON / PROCEDURE REASON: multiple diagnoses * * * * Physician Interpretation * * * * EXAMINATION: CHEST CT WITH CONTRAST Indication: Malignant neoplasm of unspecified part of unspecified bronchus or lung Malignant neoplasm of unspecified part of unspecified bronchus or lung Technique: Spiral CT acquisition of the chest from the thoracic inlet to the upper abdomen following IV contrast. M: CTCW_3 Contrast: 135 mL Omnipaque [address] Dose-Length Product: 500 mGy*cm CT Dose Reduction Employed: Automated exposure control (AEC) Comparison: Multiple previous studies most recent dated 09/25/2017 RESULT: LIMITATIONS: None. LINES, TUBES, AND DEVICES: None. THORACIC INLET, HEART, AND MEDIASTINUM: No mediastinal or hilar lymphadenopathy. A couple of mildly prominent pericardial lymph nodes which appear stable. For example, in the right anterior cardiophrenic angle (4:117), lymph node measuring 1.4 x 0.7 cm. In the right pericardial region (4:108), lymph node measuring 1.2 x 0.6 cm. The thoracic aorta and main pulmonary artery are normal in caliber. The cardiac chambers are normal in size. No pericardial effusion or thickening. Poorly defined low-density right-sided thyroid nodule, present previously. Stable 2.2 x 1.3 cm right paratracheal nodule containing calcifications may represent exophytic thyroid nodule. LUNG PARENCHYMA AND PLEURA: No consolidation or pleural effusion. Scattered emphysematous changes are noted. Stable 3 mm right upper lobe nodule (5:33). Subtle poorly defined groundglass nodular density right middle lobe (5:49) does not appear significantly changed. Ill-defined nodular density medial right middle lobe (5:46) does not appear significantly changed. Pleural-based left lower lobe nodule (5:61) is stable to slightly decreased in size, measuring 1.0 x 0.4 cm, previously 1.1 x 0.5 cm. Stable small nodular density associated with the left-sided fissure (5:34). No new or enlarging pulmonary nodules. Central airways are patent. BONES AND SOFT TISSUES: No destructive bone lesion. Chest wall is unremarkable. IMPRESSION: Stable mildly prominent pericardial lymph nodes. Right-sided thyroid nodule and right paratracheal nodule which may represent exophytic thyroid nodule, both present previously. Emphysema. Bilateral pulmonary nodular densities as described above, most appear stable, pleural-based left lower lobe nodular density is stable to slightly decreased in size. Circuit Breaker Assembler: PSCB Transcribe Date/Time: Dec 24 2017 8:49P Dictated by : IRENA GRISSOM MD This examination was interpreted and the report reviewed and electronically signed by: IRENA GRISSOM MD on Dec 24 2017 9:00PM EST [id number] JUSTIN CREATININE Collected: 12/23/2017 Status: F Source: [place] 9:29 AM [facility] REPOSITORY TYPE CODE TESTS RESULT OUT OF REFERENCE UNITS RANGE LAB WCRET 0.7-1.4 mg/dL Justin Creatinine 1.0 CBC AND DIFFERENTIAL Collected: 12/23/2017 Status: F Source: [place] 9:29 AM [facility] REPOSITORY TYPE CODE TESTS RESULT OUT OF REFERENCE UNITS RANGE LAB WBC 3.70-11.00 k/uL WBC 8.05 LAB RBC 3.90-5.20 m/uL Low RBC 3.73 LAB HGB 11.5-15.5 g/dL Low Hemoglobin 10.6 LAB HCT 36.0-46.0 % Low Hematocrit 33.4 LAB MCV 80.0-100.0 fL MCV 89.5 LAB MCH 26.0-34.0 pG MCH 28.4 LAB MCHC 30.5-36.0 g/dL MCHC 31.7 LAB RDWCV 11.5-15.0 % RDW-CV High 17.4 LAB PLTCT 150-400 k/uL Platelet High Count 417 LAB MPV 9.0-12.7 fL MPV 11.8 LAB ANEUT % Neut% 58.3 LAB AANEUT 1.45-7.50 k/uL Abs Neut 4.70 LAB ALYMP % Lymph% 32.3 LAB AALYMP 1.00-4.00 k/uL Abs Lymph 2.60 LAB AMONO % [place]% 8.0 LAB AAMONO <0.87 k/uL Abs [place] 0.64 LAB AEOS % Eosin% 0.0 LAB AAEOS <0.46 k/uL Abs Eosin <0.03 LAB ABASO % Baso% 1.4 LAB AABASO <0.11 k/uL Abs Baso High 0.11 LAB AUNRBC 0 /100 WBC NRBCs 0.0 LAB ABNRBC <0.01 k/uL Absolute nRBC <0.01 LAB DTYP DTYPE Auto Diff Performed By: #### CBCDIF, CMP #### [facility] [address] [place], [place] [address] COMP METABOLIC PANEL Collected: 12/23/2017 Status: F Source: [place] 9:29 AM [facility] REPOSITORY TYPE CODE TESTS RESULT OUT OF REFERENCE UNITS RANGE LAB TP 6.3-8.0 g/dL Protein, Total 7.6 LAB ALB 3.9-4.9 g/dL Albumin 4.0 LAB CA 8.5-10.2 mg/dL Calcium, Total 9.3 LAB TBIL 0.2-1.3 mg/dL Bilirubin, Total 0.6 LAB ALKP 32-117 U/L Alkaline Phosphatase 79 LAB AST 13-35 U/L AST 30 LAB GLU 74-99 mg/dL Glucose 93 Result Comment: The [place] [employer] (ADA) provides guidance for cutoff values for fasting glucose and random glucose. The ADA defines fasting as no caloric intake for at least 8 hours. Fas ting plasma glucose results between 100 to 125 mg/dL indicate increased risk for diabetes (prediabetes). Fasting plasma glucose results greater than or equal to 126 mg/dL meet the criteria for diagnosis of diabetes. In the absence of unequivocal hyperglycemia, results should be confirmed by repeat testing. In a patient with classic symptoms of hyperglycemia or hyperglycemic crisis, random plasma glucose results greater than or equal to 200 mg/dL meet the criteria for diagnosis of diabetes. Reference: Standards of Medical Care in Diabetes 2016, [place] [employer]. Diabetes Care. 2016.39(Suppl 1). LAB BUN 7-21 mg/dL BUN 15 LAB CRET 0.58-0.96 mg/dL Creatinine High 1.04 LAB NA 136-144 mmol/L Sodium 139 LAB K 3.7-5.1 mmol/L Potassium 4.5 LAB CL 97-105 mmol/L Chloride 103 LAB CO2 22-30 mmol/L CO2 24 LAB AGAP 9-18 mmol/L Anion Gap 12 LAB ALT 7-38 U/L ALT 20 LAB GFRAA eGFR- Amer. >60 LAB GFRNAA . eGFR-All Other Races 53 Result Comment: eGFR (Estimated GFR) Units of measure: mL/min/1.73 meters squared eGFR is derived from the reexpressed MDRD Study equation using the following parameters: serum creatinine, age, gender and race. The creatinine assay has been calibrated to be traceable to IDMS. An eGFR <60 mL/min/1.73m2 for >3 months is consistent with chronic kidney disease. Refer to KDOQI guidelines for clinical interpretation. In patients with unstable renal function, e.g. those with acute kidney injury, the eGFR may not accurately reflect actual GFR. Performed By: #### CBCDIF, CMP #### [email or web address] [address] [place], [place] [address] MAI Observed: 12/18/2017 Status: COMPLETED Source: [place] 12:00 AM [facility] REPOSITORY Telephone (CHUCKY) LISETTE CRISOSTOMO ([id number]) 1950 F Date Time Provider Department 12/18/17 DREW JAMIL During your visit today, we recorded the following information about you: Andres Lofton Psr 12/18/2017 11:35 AM Signed I called and left a message for Lisette to call us back to see if she is still wanting to transfer her oncology care from at [facility] to here at our [place] office. If patient states she is wanting to schedule with please schedule first Est Complex appointment with , notes should read as follows... OV/Transfer care from [facility]* Once scheduled please note and close encounter Andres Lofton Psr Andres Lofton Psr 12/27/2017 11:38 AM Signed I called and spoke to Lisette and she stated she would call our office back if she is wanting to be seen with , patient is unsure on if she wants to transfer her care from at [facility]. If patient calls back please schedule as requested below with Dr.Masci Andres Lofton Psr Isabella Wharton Psr 12/27/2017 3:10 PM Signed Patient returned call and stated she is being referred to Dr. Jamil for a blood disorder I stated we will need information faxed to the office for that dx, as we do not have anything. She will contact PCP and have them sent records over. Linh Psr Dionicio 01/02/2018 9:51 AM Signed Spoke with patient. She states she is being referred by Dr. Fernández. She does not want to cancel or transfer care from Dr. Crooks. Patient is calling Dr. Fernández's office to have records faxed to [phone]. Records to be given to Dr. Jamil to review prior to scheduling. Allergies As of Date: 12/18/2017 Noted Allergy Reaction CODEINE 04/16/2007 5 - Intolerance PENICILLINS 04/16/2007 5 - Intolerance Date Reviewed: 09/26/2017 Reviewed by: Myrna (Jama) JAMA Crouch - Fully Assessed Reason for Visit: Future Appointment [256] Prescriptions as of 12/18/2017 Sig: ALECTINIB 150 MG CAPSULE Take 2 capsules by mouth twic* PROCHLORPERAZINE MALEATE 10 M* Take 1 tablet by mouth every * LORAZEPAM 1 MG TABLET take 1-2 tabs by mouth 30 min* METFORMIN ER 500 MG TABLET,EX* Take 1,500 mg by mouth daily * SIMVASTATIN 10 MG TABLET Take 10 mg by mouth daily at * FEXOFENADINE 180 MG TABLET Take 180 mg by mouth once melo* X BYSTOLIC 5 MG TABLET Take 5 mg by mouth once daily* X OMEPRAZOLE 20 MG CAPSULE,GAGAN* Take 20 mg by mouth once scarlet* Problem List As Of Date 12/18/2017 Noted Resolved Metastatic carcinoma (HCC) [C79.9] INVALID FOR*10/11/2016 Primary lung adenocarcinoma (HCC) [C34.90] INVALID FOR* Thyroid cancer (HCC) [C73] INVALID FOR* Peripheral edema [R60.9] INVALID FOR* Encounter Status:Closed by ANDRES ARMIJO on 12/27/17 SCREENING MAMM (CAD), Observed: 12/06/2017 Status: F Source: [place] 10:40 AM [facility] Imaging Services [address] [place] [address] SCREENING MAMM (CAD), BILAT MR#: [id number] Acct: [id number] Name: LISETTE CRISOSTOMO Rep #: [id number] : 1950 F 67 From: Riccardo Vazquez MD PCP: Katie Fernández DO Status: REG CLI Study: SCREENING MAMM (CAD), BILAT Date of Exam: 12/06/17 Exam# [id number] Ordering Dr: Mary Levine MD MAMMOGRAPHY - BILATERAL SCREENING REASON FOR [...] November 23, 2016 and November 23, 2015. FINDINGS: Breast Composition: There are scattered areas of fibroglandular density. There are no dominant masses or suspicious calcifications. No other significant abnormalities are identified. There has been no significant change since the prior study. BI/SCREENING MAMM (CAD), BILAT IMPRESSION: Stable bilateral screening mammogram. Yearly follow-up mammogram recommended. (A) ASSESSMENT CATEGORY: BIRADS Category 1: Negative. A letter regarding these results will be sent to the patient by the facility within 30 days. Approximately 10% of breast cancers are not detected by mammography. A normal mammogram should not delay biopsy of a clinically suspicious abnormality. [id number] Electronically Signed: Riccardo Vazquez MD at 13:26 EDT Tel [phone], Service support , CC: Mary Levine MD; Katie Fernández DO Circuit Breaker Assembler: Signed CBC W/DIFF, AUTOMATED Collected: 10/31/2017 Status: F Source: [place] 8:15 AM [facility] TYPE CODE TESTS RESULT OUT OF RANGE REFERENCE UNITS LAB L100.1000 4.4-11.0 K/mm3 Normal WBC 7.5 LAB L100.1200 4.2-5.4 M/mm3 Low RBC 3.76 LAB L100.1300 12.0-15.0 g/dl Low HGB 10.4 LAB L100.1400 37-47 % Low HCT 33.3 LAB L100.1500 81-99 fL Normal MCV 88.6 LAB L100.1600 27.0-32.0 pg Normal MCH 27.7 LAB L100.1700 32-36 g/gl Low MCHC 31.2 LAB L100.1810 11.6-14.6 % High RDW CV 17.0 LAB L100.1820 35.1-43.9 fl High RDW SD 54.9 LAB L100.1900 150-450 K/mm3 Normal PLT 374 LAB L100.2000 6.2-12.0 fl Normal MPV 10.1 LAB L100.2100 47-70 % Normal NEUT% 48.4 LAB L100.2200 19-41 % Normal LY% 36.8 LAB L100.2300 0-10 % Normal MONO% 6.7 LAB L100.2400 0-5 % High EO% 6.5 LAB L100.2500 0-1 % High BASO% 1.3 LAB L100.2550 0.0-0.9 % Normal IM GRAN % 0.300 Result Comment: IG% - Immature Granulocytes (promyelocytes, myelocytes and metamyelocytes) > 1% indicates that a LEFT SHIFT is Present. LAB L100.2620 2.0-7.7 X10 3/uL Normal Absolute Neut 3.6 LAB L100.2720 0.83-4.51 X10 3/ul Normal Absolute Lymph 2.76 Performed By: #### L100.0100 #### [facility] [place], [address] COMPREHENSIVE METABOLIC Collected: 10/31/2017 Status: F Source: [facility] 8:15 AM [facility] [place] CODE TESTS RESULT OUT OF RANGE REFERENCE UNITS LAB L501.0100 74-106 mg/dL Normal GLU 101 Result Comment: Fasting Glucose result from 100 to 125 mg/dL suggests IMPAIRED HOMEOSTASIS per A.D.A. criteria. Please note revised GLUCOSE reference range effective 2017. LAB L501.1000 7-18 mg/dL Normal BUN 15 LAB L501.1100 0.55-1.02 mg/dL Normal CREAT,SERUM 0.96 Result Comment: The validity of the calculated GFR AND GFRAA in patients over 70 years has not been determined. Clinical correlation is essential. LAB L501.1110 >60 mL/min Normal EST GFR 61 Result Comment: Non- GFR Calc LAB L501.1115 >60 mL/min Normal EST GFR - AA 74 Result Comment: GFR Calc LAB L501.1300 10-20 RATIO Normal BUN/CRE 15.6 LAB L501.1500 6.4-8.2 g/dL T Normal PROT 8.0 LAB L501.1800 3.2-5.0 g/dL Normal ALB 3.4 LAB L501.1950 2.2-4.2 g/dL High GLOB 4.6 LAB L501.2000 0.9-2.4 RATIO Low A/G 0.7 LAB L501.2200 8.5-10.1 mg/dL CA Normal 8.7 LAB L501.4100 15-37 U/L Normal AST 30 LAB L501.4305 45-117 U/L Normal ALK P 88 LAB L501.4405 13-56 U/L Normal ALT 29 LAB L501.4600 0.20-1.00 mg/dL T Normal BILI 0.60 LAB L501.5300 136-145 mmol/L NA Normal 139 LAB L501.5600 3.5-5.1 mmol/L K Normal 4.1 LAB L501.5900 98-107 mmol/L CL Normal 106 LAB L501.6100 21.0-32.0 mmol/L Normal CO2 25.0 LAB L501.6200 5-15 Normal GAP 8 Performed By: #### L500.4050, L500.4100, L501.9520 #### [facility] [address] [place], [address] LIPID PROFILE Collected: 10/31/2017 Status: F Source: [place] 8:15 AM [facility] [place] TYPE CODE TESTS RESULT OUT OF RANGE REFERENCE UNITS LAB L501.4900 200 mg/dL Normal CHOL 196 Result Comment: <200 mg/dL Desirable 200-240 mg/dL Borderline >240 mg/dL High Risk LAB L501.5000 mg/dL Normal TRIG 168 Result Comment: The drugs N-Acetylcysteine and Metamizole may falsely depress this assay. Serum Triglycerides Reference Interval Normal <150 mg/dL Borderline high 150 - 199 mg/dL High 200 - 499 mg/dL Very High > or = 500 mg/dL LAB L501.6400 mg/dL Normal HDL 58 Result Comment: The drugs N-Acetylcysteine and Metamizole may falsely depress this assay. Reference Range HDL <40 mg/dL Low HDL Cholesterol HDL >or= 60 mg/dL High HDL Cholesterol LAB L501.6500 0-130 mg/dL Normal LDL 104 LAB L501.6600 5-40 mg/dL Normal VLDL 34 Performed By: #### L500.4050, L500.4100, L501.9520 #### [facility] [address] [place], [address] THYROID STIM HORMONE Collected: 10/31/2017 Status: F Source: JUSTIN ([facility]) 8:15 AM [facility] [place] TYPE CODE TESTS RESULT OUT OF RANGE REFERENCE UNITS LAB L501.9520 0.358-3.74 uIU/mL Normal TSH 1.77 Performed By: #### L500.4050, L500.4100, L501.9520 #### [facility] [address] [place], [address] URINALYSIS, COMPLETE Collected: 10/31/2017 Status: F Source: [place] 8:15 AM [facility] [place] Order Comment: PT UTO TOOK CONTAINER HOME WILL RETURN TODAY How was Urine Obtained? CLEAN CATCH TYPE CODE TESTS RESULT OUT OF RANGE REFERENCE UNITS LAB L400.3000 Yellow COLOR Normal Yellow LAB L400.3050 Clear Normal CLARITY Sl. Cloudy LAB L400.3200 Normal mg/dl Normal GLUCOSE, UR Normal LAB L400.3300 Negative mg/dL Normal BILIRUBIN URINE Negative LAB L400.3400 Negative mg/dl Normal KETONE UR Negative LAB L400.3465 1.002-1.030 Normal SP.GR. DIPSTX 1.020 LAB L400.3550 5.0 - 8.0 pH UR Normal 5.0 LAB L400.3600 Negative mg/dl PROT Normal DIPSTX Negative LAB L400.3700 Normal mg/dl Normal UROBILI Normal LAB L400.3750 Negative Normal NITRITE UR Negative LAB L400.3780 Negative /ul Normal OCCULT BLOOD-UR Negative LAB L400.3800 Negative /ul High LEUK ESTERASE 100 LAB L400.4050 0-5 /hpf WBC Normal 10-25 SEEN LAB L400.4100 0-5 /hpf 0 Normal RBC-UA SEEN LAB L400.4150 5-10 /hpf SQUAM Normal EPI 0-5 SEEN LAB L400.4300 None Seen /hpf 1+ Normal BACTERIA LAB L400.4350 <or=2+ /hpf 0 Normal MUCUS, URINE SEEN Performed By: #### L400.0001 #### [facility] [address] [facility] [place], [place], [address] MICROALB:CREAT Collected: 10/31/2017 Status: F Source: JUSTIN RATIO,RANDOM UR 8:15 AM [facility] [place] Order Comment: PT UTO TOOK CONTAINER HOME WILL RETURN TODAY TYPE CODE TESTS RESULT OUT OF RANGE REFERENCE UNITS LAB L501.1200 NO RANGE EST. mg/dL Normal UR CREAT 159.00 LAB L502.0500 NO RANGE EST. mg/L Normal 9.9 MICROALBUMIN ,UR LAB L502.0600 <30 mg/g CRE mg/g CRE Normal 6.2 MALB:CREAT Performed By: #### L502.0250 #### [facility] [address] [place], [place], [address] VITAMIN D,25 HYDROXY Collected: 10/31/2017 Status: F Source: [place] 8:15 AM [facility] [place] TYPE CODE TESTS RESULT OUT OF REFERENCE UNITS RANGE LAB L506.1000 29.95-100.01 ng/mL Low Vitamin D 18.3 25-OH Result Comment: Vitamin D 25(OH) Status Range Deficiency <20 ng/mL (50nmol/L) Insuffciency 20 - 30 ng/mL (50 - 75 nmol/L) Sufficiency 30 - 100 ng/mL (75 - 250 nmol/L) Toxicity >100 ng/mL (>250 nmol/L) Performed By: #### L506.1000 #### [facility] [address] [place], [address] PROGRESS Observed: 09/26/2017 Status: COMPLETED Source: [place] 1:16 PM [facility] REPOSITORY HNO ID: [id number] Author: Zaina Crooks Service: (none) Author Type: Physician Type: Progress Notes Filed: 09/26/2017 1:19 PM Note Text: DIAGNOSIS: Lung Adenocarcinoma diagnosed in 2016. ? BIOMARKERS: ALK IHC and FISH+ ?? STAGE: Clinical Q6gD7C0x- IV (cervical and abdominal adenopathy) ? METRICS: Stage 4 Was napaimute doublet chemotherapy or molecular therapy (if EGFR mutant or ALK/ROS1-rearranged) offered for PS-0-1 and no initial therapy? Yes and Pending Palliative Medicine Provider: No ? TREATMENT HISTORY: None RELEVANT MEDICAL ISSUES: Biopsy-proven thyroid cancer diagnosed in 2017, being observed ? CURRENT TREATMENT: Alectinib 600mg bid starting 10/29/2016; dose held for a week 11/2016 then restarted at reduced dose of 450 mg po bid 11/20/16 due to SOBOE, edema INTERVAL HISTORY: Ms. Crisostomo returns for follow up and scans on alectinib. She feels fine overall, no new complaints. Energy and appetite fine, weight up. Exercising regularly although still has mild dyspnea on exertion. No cough. No hemoptysis. No nausea, vomiting, constipation or diarrhea. She notes occasional episodes of dysphagia; denies choking. No pain. No headaches. No visual changes. She does have some mild swelling (LE, abdomen) which is better. The remainder of the review of systems is negative. REVIEW OF SYSTEMS: General: weight up, denies fatigue; denies fever, chills Skin: Denies changes in hair, itching, and rashes HEENT: Denies acute visual changes, tearing, rhinorrhea, hoarseness, and sore throat Respiratory: SOBOE as noted; + cough improving, no sputum, hemoptysis GI: Appetite as noted; denies n/v, dysphagia, diarrhea Vascular: + B/L LE edema improved Neurologic: + occasional R hand numbness, tingling unchanged PAST MEDICAL HISTORY Diagnosis Date - Allergic rhinitis - Arrhythmia - Diabetes (HCC) - Hyperlipidemia - Hypertension - Hypoglycemia, unspecified - Mental disorder - Snoring Social History Marital status: Spouse name: Years of education: Number of children: Social History Main Topics Smoking status: Former Smoker Packs/day: 0.50 Years: 35.00 Types: Cigarettes Quit date: 10/19/2016 Smokeless tobacco: Never Used Alcohol use: No Drug use: No Sexual activity: Yes Partners with: Male Performance Status: ECOG 0 PHYSICAL EXAM: Vitals BP 104/69 Pulse 62 Temp 36.7 ?C (98.1 ?F) (Oral) Resp 18 Wt 70.6 kg (155 lb 11.2 oz) LMP (LMP Unknown) SpO2 97% BMI 32.54 kg/m? General: Upon examination, Ms. Crisostomo is an age-appropriate 67 year old female. Her affect and mood are pleasant and appropriate. She is alert and oriented and in NAD. She is accompanied by her sister today. HEENT: PERRL, sclerae white, oropharynx without erythema/exudate; lips and gums without lesions Skin: No visible rashes Heart: RRR, no M/G/R noted Lungs: Normal respiratory effort; CTA B/L Vascular: Trace bilateral LE edema Abdomen: soft, non-tender to palpation Lymphatic: no palpable supra/infraclavicular nodes Neurologic: Gait is steady Laboratory Data reviewed and in EPIC CT scans reviewed and show continued improvement in lung lesion and diffuse adenopathy. Thyroid mass stable. Small LLL nodule read as slightly larger but looks similar, will watch. ASSESSMENT/PLAN: Ms. Crisostomo is a 67 year old female with metastatic ALK+ lung adenocarcinoma, with favorable response to alectinib. Continue alectinib and will see her back in 3 months. Repeat MRI brain as well since it has been 12 months and ALK+ cancer has predilection for the SEISMIC PROSPECTING OBSERVER. Signed: Zaina Crooks MD Pager Number: [phone] Date and Time of Service: Date: 09/26/2017 Time: 1:18 PM CNOVSP Observed: 09/26/2017 Status: COMPLETED Source: [place] 10:40 AM [facility] REPOSITORY Visit (SP) Office ([id number]) LISETTE CRISOSTOMO ([id number]) 1950 F Date Time Provider Department 09/26/17 10:40 AM ZAINA [email or web address] During your visit today, we recorded the following information about you: Temperature Pulse Respiration Blood pressure 98.1 degrees 62/minute 18/minute 104/69 Weight 70.6 kg Myrna Crouch LPN, LPN 09/26/2017 11:19 AM Signed Additional intake questions: Has the patient had nausea, vomiting, diarrhea, constipation, fatigue for > 1 week? None of the above Does the patient have a decreased appetite? No Does patient want to see a Gifts Officer? No (yes to any of above refer patient to schedulers for dietitian appointment) ) Does patient have any new or increased numbness or tingling of extremities? No Is patient interested in fertility information? NA Does patient need any prescription refills? No Electronically Signed By: JAMA Monreal MD 09/26/2017 11:34 AM Signed Please schedule CT RETURN [address] SCHEDULING QUESTIONNAIRE Is the patient 60 or older or does the patient have diabetes or a history of kidney disease other than stones? Yes, a Creatinine level is required. WIll this be ready at time of exam? Yes - drawn at [facility] Hydration: No Is the associated diagnosis or reason for exam Peritoneal Dialysis, Prerenal Transplant, Triphasic Liver or AAA (Abdominal Aoritc Aneurism) or anything with Adrenals or does the order indicate Liver Exam, Kidney Exam or Urogram? No Is there any possibility the patient may be ? No Zaina Crooks MD 09/26/2017 1:19 PM Signed DIAGNOSIS: Lung Adenocarcinoma diagnosed in 2017. ? BIOMARKERS: ALK IHC and FISH+ ?? STAGE: Clinical L2hI6P7o- IV (cervical and abdominal adenopathy) ? METRICS: Stage 4 Was napaimute doublet chemotherapy or molecular therapy (if EGFR mutant or ALK/ROS1-rearranged) offered for PS-0-1 and no initial therapy? Yes and Pending Palliative Medicine Provider: No ? TREATMENT HISTORY: None RELEVANT MEDICAL ISSUES: Biopsy-proven thyroid cancer diagnosed in 2017, being observed ? CURRENT TREATMENT: Alectinib 600mg bid starting 10/29/2016; dose held for a week 11/2016 then restarted at reduced dose of 450 mg po bid 11/20/16 due to SOBOE, edema INTERVAL HISTORY: Ms. Crisostomo returns for follow up and scans on alectinib. She feels fine overall, no new complaints. Energy and appetite fine, weight up. Exercising regularly although still has mild dyspnea on exertion. No cough. No hemoptysis. No nausea, vomiting, constipation or diarrhea. She notes occasional episodes of dysphagia; denies choking. No pain. No headaches. No visual changes. She does have some mild swelling (LE, abdomen) which is better. The remainder of the review of systems is negative. REVIEW OF SYSTEMS: General: weight up, denies fatigue; denies fever, chills Skin: Denies changes in hair, itching, and rashes HEENT: Denies acute visual changes, tearing, rhinorrhea, hoarseness, and sore throat Respiratory: SOBOE as noted; + cough improving, no sputum, hemoptysis GI: Appetite as noted; denies n/v, dysphagia, diarrhea Vascular: + B/L LE edema improved Neurologic: + occasional R hand numbness, tingling unchanged PAST MEDICAL HISTORY Diagnosis Date - Allergic rhinitis - Arrhythmia - Diabetes (HCC) - Hyperlipidemia - Hypertension - Hypoglycemia, unspecified - Mental disorder - Snoring Social History Marital status: Spouse name: Years of education: Number of children: Social History Main Topics Smoking status: Former Smoker Packs/day: 0.50 Years: 35.00 Types: Cigarettes Quit date: 10/19/2016 Smokeless tobacco: Never Used Alcohol use: No Drug use: No Sexual activity: Yes Partners with: Male Performance Status: ECOG 0 PHYSICAL EXAM: Vitals BP 104/69 Pulse 62 Temp 36.7 ?C (98.1 ?F) (Oral) Resp 18 Wt 70.6 kg (155 lb 11.2 oz) LMP (LMP Unknown) SpO2 97% BMI 32.54 kg/m? General: Upon examination, Ms. Crisostomo is an age-appropriate 67 year old female. Her affect and mood are pleasant and appropriate. She is alert and oriented and in NAD. She is accompanied by her sister today. HEENT: PERRL, sclerae white, oropharynx without erythema/exudate; lips and gums without lesions Skin: No visible rashes Heart: RRR, no M/G/R noted Lungs: Normal respiratory effort; CTA B/L Vascular: Trace bilateral LE edema Abdomen: soft, non-tender to palpation Lymphatic: no palpable supra/infraclavicular nodes Neurologic: Gait is steady Laboratory Data reviewed and in EPIC CT scans reviewed and show continued improvement in lung lesion and diffuse adenopathy. Thyroid mass stable. Small LLL nodule read as slightly larger but looks similar, will watch. ASSESSMENT/PLAN: Ms. Crisostomo is a 67 year old female with metastatic ALK+ lung adenocarcinoma, with favorable response to alectinib. Continue alectinib and will see her back in 3 months. Repeat MRI brain as well since it has been 12 months and ALK+ cancer has predilection for the SEISMIC PROSPECTING OBSERVER. Signed: Zaina Crooks MD Pager Number: [phone] Date and Time of Service: Date: 09/26/2017 Time: 1:18 PM Referring Provider: ZAINA CROOKS [[id number]] Allergies As of Date: 09/26/2017 Noted Allergy Reaction CODEINE 04/16/2007 5 - Intolerance PENICILLINS 04/16/2007 5 - Intolerance Date Reviewed: 09/26/2017 Reviewed by: Myrna (Jama) JAMA Crouch - Fully Assessed Reason for Visit: Established Patient [175] Primary Visit Diagnosis:Primary adenocarcinoma of lung, unspecified laterality (HCC) [C34.90] Other Visit Diagnosis:Malignant neoplasm of unspecified part of unspecified bronchus or lung (HCC) [C34.90] Order(s):COMP METABOLIC PANEL [SQCMP] Order #: [id number] FUTURE CBC + DIFF [SQCBCDIF] Order #: [id number] FUTURE CT CHEST W IVCON [[id number]] Order #: [id number] FUTURE CT ABDOMEN W IVCON [[id number]] Order #: [id number] FUTURE iv contrast (will be provided with radiology test)CT Chest Abdomen-Inject, intravenously, once for 1 dose.No IV access, insert saline lock prior to the beginning of sedation, infusion, injection of imaging exam. Discontinue saline lock post exam. If Pt. has a central line or IVAD, may access for administration according to line specific nursing protocol. Once exam is complete flush line and de-access according to line specific nursing protocol in the CT contrast administration guidelines link.Disp: 1 EachRfl: 0 enteric contrast (will be provided with radiology test)For CT Chest Abdomen W IVCON order Administer, As Directed One Time Only, via Oral, Rectal, both Oral and Rectal, Enteric Tube, Stoma or Indwelling Catheter, Enteric Contrast as designated per enteric contrast guidelinesDisp: 1 EachRfl: 0 MRI BRAIN WO/W IVCON [[id number]] Order #: [id number] FUTURE iv contrast (will be provided with radiology test)MRI Brain Inject, intravenously, once for 1 dose.No IV access, insert saline lock prior to beginning of sedation, infusion, injection of imaging exam.Discontinue saline lock post exam. If Pt. has a central line or IVAD, may access for administration according to line specific nursing protocol.Once exam is complete flush line and de- access according to line specific nursing protocol in the MR contrast administration guidelines linkDisp: 1 EachRfl: 0 Disposition: Return in about 3 months (around 12/27/2017). Follow-up and Disposition History Recorded Prescriptions as of 09/26/2017 Sig: ALECTINIB 150 MG CAPSULE Take 2 capsules by mouth twic* PROCHLORPERAZINE MALEATE 10 M* Take 1 tablet by mouth every * LORAZEPAM 1 MG TABLET take 1-2 tabs by mouth 30 min* METFORMIN ER 500 MG TABLET,EX* Take 1,500 mg by mouth daily * BYSTOLIC 5 MG TABLET Take 5 mg by mouth once daily* SIMVASTATIN 10 MG TABLET Take 10 mg by mouth daily at * OMEPRAZOLE 20 MG CAPSULE,GAGAN* Take 20 mg by mouth once scarlet* FEXOFENADINE 180 MG TABLET Take 180 mg by mouth once melo* IV CONTRAST (RADIOLOGY PROCED* CT Chest Abdomen-Inject, intr* ENTERIC CONTRAST (RADIOLOGY P* For CT Chest Abdomen W IVCON * IV CONTRAST (RADIOLOGY PROCED* MRI Brain Inject, intravenous* Problem List As Of Date 09/26/2017 Noted Resolved Metastatic carcinoma (HCC) [C79.9] INVALID FOR*10/11/2016 Primary lung adenocarcinoma (HCC) [C34.90] INVALID FOR* Thyroid cancer (HCC) [C73] INVALID FOR* Peripheral edema [R60.9] INVALID FOR* Other instructions from your clinician: Please schedule CT RETURN [address] SCHEDULING QUESTIONNAIRE Is the patient 60 or older or does the patient have diabetes or a history of kidney disease other than stones? Yes, a Creatinine level is required. WIll this be ready at time of exam? Yes - drawn at [facility] Hydration: No Is the associated diagnosis or reason for exam Peritoneal Dialysis, Prerenal Transplant, Triphasic Liver or AAA (Abdominal Aoritc Aneurism) or anything with Adrenals or does the order indicate Liver Exam, Kidney Exam or Urogram? No Is there any possibility the patient may be ? No Visit Notes: >> Myrna Crouch LPN [facility] Sep 26, 2017 11:19 AM Status: Signed Additional intake questions: Has the patient had nausea, vomiting, diarrhea, constipation, fatigue for > 1 week? None of the above Does the patient have a decreased appetite? No Does patient want to see a Gifts Officer? No (yes to any of above refer patient to schedulers for dietitian appointment) ) Does patient have any new or increased numbness or tingling of extremities? No Is patient interested in fertility information? NA Does patient need any prescription refills? No PROGRESS Observed: 09/25/2017 Status: COMPLETED Source: [place] 12:19 PM [facility] REPOSITORY O ID: [id number] Author: Joceline Thrasher Service: (none) Author Type: (none) Type: Progress Notes Filed: 09/25/2017 12:19 PM Note Text: Radiology Service Progress Note PATIENT NAME: Lisette Crisostomo DATE OF SERVICE: September 25, 2017 TIME: 12:19 PM PATIENT IDENTITY VERIFICATION COMPLETED USING TWO (2) METHODS: Patient confirmed name verbally and Date of . PATIENT GENDER DATA: Female. status: : No status: NO. PATIENT RELEVANT IMPLANT DATA REVIEWED: Not Applicable CONTRAST INDUCED NEPHROPATHY RISK FACTORS: Patient age > 60 years CREATININE: Creatinine Date Value Ref Range Status 06/25/2017 1.02 (H) 0.58 - 0.96 mg/dL Final 03/18/2017 0.98 (H) 0.58 - 0.96 mg/dL Final 12/06/2016 0.89 0.58 - 0.96 mg/dL Final eGFR-All Other Races Date Value Ref Range Status 06/25/2017 54 . Final Comment: eGFR (Estimated GFR) Units of measure: mL/min/1.73 meters squared eGFR is derived from the reexpressed MDRD Study equation using the following parameters: serum creatinine, age, gender and race. The creatinine assay has been calibrated to be traceable to IDMS. An eGFR <60 mL/min/1.73m2 for >3 months is consistent with chronic kidney disease. Refer to KDOQI guidelines for clinical interpretation. In patients with unstable renal function, e.g. those with acute kidney injury, the eGFR may not accurately reflect actual GFR. eGFR- Date Value Ref Range Status 06/25/2017 >60 Final P.O.C.T. RESULTS: POC done: Yes, See Lab Tab September 25, 2017 RADIOLOGIST NOTIFIED?: No ALLERGIES: Reviewed and unchanged CONTRAST ALLERGY: NO. PERIPHERAL IV ACCESS: Ambulatory: IV type: A peripheral IV was started in the Left hand with a Angio cath: 22 gauge., Site assessment: Clean,Dry and Intact, Site disposition Discontinued RADIOLOGY DEPARTMENT: CT; Exam(s) Completed: Abdomen and Chest SIGNED BY: Joceline Grace Ct September 25, 2017 12:[address] ABDOMEN W IVCON Observed: 09/25/2017 Status: F Source: [place] 11:34 AM [facility] [place] REPOSITORY * * *Final Report* * * DATE OF EXAM: Sep 25 2017 11:34AM [facility] [id number] - CT ABDOMEN W IVCON / PROCEDURE REASON: Malignant neoplasm of unspecified part of unspecified bronchus or lung * * * * Physician Interpretation * * * * EXAMINATION: CT ABDOMEN WITH IV CONTRAST CLINICAL HISTORY: DIAGNOSIS: ?Lung Adenocarcinoma?diagnosed in 2017. STAGE: Clinical ?L7sC0I0w- IV?(cervical and abdominal adenopathy); RELEVANT MEDICAL ISSUES:?Biopsy-proven thyroid cancer diagnosed in 2017, being observed; CURRENT TREATMENT: Alectinib 600mg bid starting 10/29/2016; dose held for a week 11/2016 then restarted at reduced dose of 450 mg po bid 11/20/16 due to SOBOE, edema TECHNIQUE: CT of the abdomen was performed using standard technique, scanning from just above the dome of the diaphragm to the iliac crest. MQ: [id number] Contrast: IV: 135 ml of Omnipaque 300 Oral: 50 ml of 50ML Omnipaque [address] Radiation dose: Integrated Dose-length product (DLP) for this visit = 536 mGy*cm. CT Dose Reduction Employed: Automated exposure control (AEC) COMPARISON: 06/26/2017 RESULT: Liver: No mass. Biliary: Mild, stable extrahepatic biliary ductal dilation associated with cholecystectomy Spleen: No mass. No splenomegaly. Pancreas: No mass or duct dilation. Adrenals:No mass. Kidneys: Stable 2.8 cm RIGHT renal cyst; no stones or hydronephrosis GI tract: No dilation or wall thickening. Lymph nodes: Prior measured lymph nodes as follows: * Superior RIGHT periceliac (8:29) measures 1.6 x 0.6 cm; unchanged to slightly smaller as on prior exam measured. * More inferior, RIGHT periceliac adjacent to proximal common hepatic artery (8:31) measures 1.7 x 0.9 cm; unchanged as on prior exam 1.8 x 0.9 cm * Other small retroperitoneal lymph nodes unchanged * No new lymphadenopathy Mesentery/Peritoneum: No ascites or mass. Retroperitoneum: No mass. Vasculature: The celiac axis and SMA are patent. The portal vein and branches, splenic vein, SMV, and hepatic veins are patent. Arterial atherosclerotic disease without aneurysm. Bones/Soft Tissues: No neoplastic bone disease Lower thorax: A chest CT performed will be reported separately. IMPRESSION: STABLE UPPER RETROPERITONEAL LYMPH NODES Circuit Breaker Assembler: LIAM Transcribe Date/Time: Sep 25 2017 12:04P Dictated by : KELLY AVITIA MD This examination was interpreted and the report reviewed and electronically signed by: KELLY AVITIA MD on Sep 25 2017 12:11PM EST [id number] CT CHEST W IVCON Observed: 09/25/2017 Status: F Source: [place] 11:34 AM [facility] [facility] * * *Final Report* * * DATE OF EXAM: Sep 25 2017 11:34AM [facility] 0539 - CT CHEST W IVCON / PROCEDURE REASON: Malignant neoplasm of unspecified part of unspecified bronchus or lung * * * * Physician Interpretation * * * * EXAMINATION: CHEST CT WITH CONTRAST CLINICAL HISTORY: Malignant neoplasm of unspecified part of unspecified bronchus or lung Technique: Spiral CT acquisition of the chest from the thoracic inlet to the upper abdomen following IV contrast. MQ: CTCWR_5 Contrast: 135 mL Omnipaque [address] Dose-Length Product: 536 mGy*cm CT Dose Reduction Employed: Automated exposure control (AEC) Comparison: 06/26/2017, 03/18/2017 RESULT: Limitations: None. Lines, tubes, and devices: None. Lung parenchyma and pleura: Stable to slight decrease in the size of the dominant 5 mm groundglass nodule in the right middle lobe, image 101. This nodule measured 17 x 16 mm on prior PET/CT dated 09/28/2016. Additional small bilateral pulmonary nodules are also unchanged. For example, a 6 x 3 mm nodule is noted in the medial right middle lobe, unchanged, image 97. Similarly, a 3 mm nodule is noted along the left major fissure, likely lymph node, image 69. There has been slight interval increase in the subpleural/pleural nodular opacity along the left lower lobe, measuring 11 x 5 mm, image 122. This opacity is new since 03/18/2017. Mild emphysema is noted with an upper lung predominance. Central airways are patent. No pleural effusion is noted. Thoracic inlet, heart, and mediastinum: The thyroid gland is enlarged and heterogenous. Stable exophytic 2.1 cm right thyroid lobe nodule is noted with internal calcifications, image 25. The patient has known thyroid metastases. Few low-attenuation lesions are noted in the right thyroid lobe, overall similar to prior examination. For example, a 12 mm hypodense nodule is noted along the superior aspect of the right thyroid lobe, image 13. Few subcentimeter mediastinal and bilateral hilar lymph nodes are unchanged. Additionally, there are enlarged diaphragmatic lymph nodes, which are also unchanged since prior examination. For example, a stable 10 mm anterior diaphragmatic lymph node is noted at image 119. The aorta is normal in size. There is mild calcified atherosclerotic disease of the thoracic aorta. The central pulmonary arteries are unremarkable. There is biatrial enlargement. Scattered coronary artery calcifications are noted, though the study was not optimized for coronary assessment. No pericardial effusion or thickening is noted. Bones and soft tissues: No destructive bone lesion. Mild degenerative changes are noted in the thoracic spine. Chest wall is unremarkable. Upper abdomen: Images of the abdomen and pelvis are dictated separately. = IMPRESSION: 1. There has been slight interval increase in the size of a pleural-based 11 x 8 mm nodular density along the posterior left lower lobe; this nodule is new since CT dated 03/18/2017. Attention on follow- up is suggested in this patient with known malignancy. 2. Stable to slight decrease in the size of the 5 mm right middle lobe nodule is noted, likely the treated malignancy. Additional subcentimeter lung nodules are unchanged since prior examination. 3. Few subcentimeter to mildly enlarged intrathoracic lymph nodes are unchanged since prior examination. 4. Multiple thyroid nodules are noted, grossly unchanged since prior examination. The patient has biopsy-proven thyroid metastases. Circuit Breaker Assembler[facility] Transcribe Date/Time: Sep 25 2017 3:47P Dictated by : CONCETTA BLACKMON MD This examination was interpreted and the report reviewed and electronically signed by: CONCETTA BLACKMON MD on Sep 25 2017 4:14PM EST [id number] COMP METABOLIC PANEL Collected: 09/25/2017 Status: F Source: [place] 10:08 AM [facility] REPOSITORY TYPE CODE TESTS RESULT OUT OF REFERENCE UNITS RANGE LAB TP 6.3-8.0 g/dL Protein, Total 7.6 LAB ALB 3.9-4.9 g/dL Albumin 4.2 LAB CA 8.5-10.2 mg/dL Calcium, Total 9.4 LAB TBIL 0.2-1.3 mg/dL Bilirubin, Total 0.6 LAB ALKP 32-117 U/L Alkaline Phosphatase 85 LAB AST 13-35 U/L AST 34 LAB GLU 74-99 mg/dL Glucose High 100 Result Comment: The [place] [employer] (ADA) provides guidance for cutoff values for fasting glucose and random glucose. The ADA defines fasting as no caloric intake for at least 8 hours. Fas ting plasma glucose results between 100 to 125 mg/dL indicate increased risk for diabetes (prediabetes). Fasting plasma glucose results greater than or equal to 126 mg/dL meet the criteria for diagnosis of diabetes. In the absence of unequivocal hyperglycemia, results should be confirmed by repeat testing. In a patient with classic symptoms of hyperglycemia or hyperglycemic crisis, random plasma glucose results greater than or equal to 200 mg/dL meet the criteria for diagnosis of diabetes. Reference: Standards of Medical Care in Diabetes 2016, [place] [employer]. Diabetes Care. 2016.39(Suppl 1). LAB BUN 7-21 mg/dL BUN 15 LAB CRET 0.58-0.96 mg/dL Creatinine 0.93 LAB NA 136-144 mmol/L Sodium 140 LAB K 3.7-5.1 mmol/L Potassium 4.6 LAB CL 97-105 mmol/L Chloride 102 LAB CO2 22-30 mmol/L CO2 23 LAB AGAP 9-18 mmol/L Anion Gap 15 LAB ALT 7-38 U/L ALT 23 LAB GFRAA eGFR- Amer. >60 LAB GFRNAA . eGFR-All Other Races 60 Result Comment: eGFR (Estimated GFR) Units of measure: mL/min/1.73 meters squared eGFR is derived from the reexpressed MDRD Study equation using the following parameters: serum creatinine, age, gender and race. The creatinine assay has been calibrated to be traceable to IDMS. An eGFR <60 mL/min/1.73m2 for >3 months is consistent with chronic kidney disease. Refer to KDOQI guidelines for clinical interpretation. In patients with unstable renal function, e.g. those with acute kidney injury, the eGFR may not accurately reflect actual GFR. Performed By: #### CMP, CBCDIF #### [facility] [address] [place], [place] [address] CBC AND DIFFERENTIAL Collected: 09/25/2017 Status: F Source: [place] 10:08 AM [facility] REPOSITORY TYPE CODE TESTS RESULT OUT OF REFERENCE UNITS RANGE LAB WBC 3.70-11.00 k/uL WBC 8.46 LAB RBC 3.90-5.20 m/uL RBC 4.11 LAB HGB 11.5-15.5 g/dL Hemoglobin 11.5 LAB HCT 36.0-46.0 % Hematocrit 36.4 LAB MCV 80.0-100.0 fL MCV 88.6 LAB MCH 26.0-34.0 pG MCH 28.0 LAB MCHC 30.5-36.0 g/dL MCHC 31.6 LAB RDWCV 11.5-15.0 % RDW-CV High 17.0 LAB PLTCT 150-400 k/uL Platelet High Count 438 LAB MPV 9.0-12.7 fL MPV 11.0 LAB ANEUT % Neut% 61.5 LAB AANEUT 1.45-7.50 k/uL Abs Neut 5.21 LAB ALYMP % Lymph% 30.4 LAB AALYMP 1.00-4.00 k/uL Abs Lymph 2.57 LAB AMONO % [place]% 7.0 LAB AAMONO <0.87 k/uL Abs [place] 0.59 LAB AEOS % Eosin% 0.0 LAB AAEOS <0.46 k/uL Abs Eosin <0.03 LAB ABASO % Baso% 1.1 LAB AABASO <0.11 k/uL Abs Baso 0.09 LAB AUNRBC 0 /100 WBC NRBCs 0.0 LAB ABNRBC <0.01 k/uL Absolute nRBC <0.01 LAB DTYP DTYPE Auto Diff Performed By: #### CMP, CBCDIF #### [facility] [address] [place], [place] [address] JUSTIN CREATININE Collected: 09/25/2017 Status: F Source: [place] 8:00 AM [facility] REPOSITORY TYPE CODE TESTS RESULT OUT OF REFERENCE UNITS RANGE LAB WCRET 0.7-1.4 mg/dL [place] Creatinine 0.9 PROGRESS Observed: 08/21/2017 Status: COMPLETED Source: [place] 1:21 PM [facility] REPOSITORY HNO ID: [id number] Author: Abbey Tellez (Crab Steamer) Service: (none) Author Type: (none) Type: Progress Notes Filed: 09/10/2017 3:58 PM Note Text: [facility] Assessment Medication(s): Akecensa Tele enc 07/10/[address] Crooks's office indicates continuation of therapy with dosage reduction, which new Rx received 07/26. Refill appropriate. Pt has upcoming CT scans 09/25 and F/U OV 09/26 to determine if continuation is appropriate; however pt's copay is $100 regardless of 15 or 30 day supply. Will dispense full month supply since pt does not have enough on hand until the scans. [facility] Visit Assessment - Hematology/Oncology: Assessment to use: Refill Non-Clinical Assessment: Patient confirmed: Yes Med/dose confirmed: Yes Missed doses: No Copay amount: $ 100 Payment confirmed: Yes Address confirmed: Yes Delivery date: 09/12/2017 Patient has questions: No Additional questions, comments, concerns: Spoke to pt, she has enough through the end of next week. Asked we ship for delivery 09/[address] [place] [address] Clinical Assessment: Lab monitoring inclusive of CBC, Chem-7, and other labs as pertinent for therapy: Yes Infusion base solution appropriateness and expiration dating: N/A Compliance rate assessment (oral meds only): Yes Screening for infection: Yes Adverse reactions and mitigation: Yes Medication changes and interaction assessment: Yes Additional Assessment: Radiology procedure timing to assess for disease progression: Yes Scheduled future appointments: Yes Abbey Tellez (Crab Steamer) Jose BradleyD Clinical Pharmacist, Oncology, Growth Hormone [facility] P: , F: [phone] PROGRESS Observed: 08/21/2017 Status: COMPLETED Source: [place] 1:21 PM [facility] [place] REPOSITORY HNO ID: [id number] Author: Abbye Tellez (Crab Steamer) Service: (none) Author Type: (none) Type: Progress Notes Filed: 10/10/2017 9:04 AM Note Text: [facility] Medication(s): Alecensa OV 09/26/[address] Crooks indicates continuation of therapy with no changes at this time. Refill appropriate. [facility] Visit Assessment - Hematology/Oncology: Assessment to use: Refill Non-Clinical Assessment: Patient confirmed: Yes Med/dose confirmed: Yes Missed doses: No Copay amount: $ 100 Payment confirmed: Yes Address confirmed: Yes Delivery date: 10/14/2017 Patient has questions: No Additional questions, comments, concerns: Spoke to pt, Asked we ship for delivery 10/14 to [address] [id number] Clinical Assessment: Lab monitoring inclusive of CBC, Chem-7, and other labs as pertinent for therapy: Yes Infusion base solution appropriateness and expiration dating: N/A Compliance rate assessment (oral meds only): Yes Screening for infection: Yes Adverse reactions and mitigation: Yes Medication changes and interaction assessment: Yes Additional Assessment: Radiology procedure timing to assess for disease progression: Yes Scheduled future appointments: Yes Abbey Tellez ([facility]) Brianda Emerson PharmD Clinical Pharmacist, Oncology, Growth Hormone [facility] P: , F: Ext [phone] PROGRESS Observed: 08/21/2017 Status: COMPLETED Source: [place] 1:21 PM [facility] REPOSITORY HNO ID: [id number] Author: Abbey Tellez ([facility]) Service: (none) Author Type: (none) Type: Progress Notes Filed: 11/08/2017 10:33 AM Note Text: Attestation signed by Brianda Emerson (Pharmacist) at 11/11/2017 8:13 AM No new labs or OV notes to review since last SPP encounter. Will proceed with refill with no changes. Brianda Emerson PharmD Clinical Pharmacist, Oncology, Growth Hormone [facility] P: , F: [phone] [facility] Medication(s): Brando [facility] Visit Assessment - Hematology/Oncology: Assessment to use: Refill Non-Clinical Assessment: Patient confirmed: Yes Med/dose confirmed: Yes Missed doses: No Copay amount: $ 100 Payment confirmed: Yes Address confirmed: Yes Delivery date: 11/12/2017 Patient has questions: No Additional questions, comments, concerns: Spoke to pt, she has about 1 week of meds left. shipping to [address] [place] [address] Abbey Tellez (Crab Steamer) PROGRESS Observed: 08/21/2017 Status: COMPLETED Source: [place] 1:21 PM [facility] REPOSITORY HNO ID: [id number] Author: Avril [facility]) Service: (none) Author Type: (none) Type: Progress Notes Filed: 12/10/2017 7:41 PM Note Text: [facility] Medication(s): Alecensa No new labs or OV notes to review since last SPP encounter. Will proceed with refill with no changes. Noted scans 12/23/17; however copay remains the same regardless of day supply. No partial supply will be considered. [facility] Visit Assessment - Hematology/Oncology: Assessment to use: Refill Non-Clinical Assessment: Patient confirmed: Yes Med/dose confirmed: Yes Missed doses: No Copay amount: $ 100 Payment confirmed: Yes Address confirmed: Yes Delivery date: 12/12/2017 Patient has questions: No Additional questions, comments, concerns: Spoke to pt, she has about 5 days on hand. Shipping12/[address] [place] [address] Clinical Assessment: Lab monitoring inclusive of CBC, Chem-7, and other labs as pertinent for therapy: N/A Infusion base solution appropriateness and expiration dating: N/A Compliance rate assessment (oral meds only): Yes Screening for infection: Yes Adverse reactions and mitigation: Yes Medication changes and interaction assessment: Yes Additional Assessment: Radiology procedure timing to assess for disease progression: Yes Scheduled future appointments: Yes Avril Farris ([facility]) Brianda Emerson, JoseD Clinical Pharmacist, Oncology, Growth Hormone [facility] P: , F: [phone] PROGRESS Observed: 08/21/2017 Status: COMPLETED Source: [place] 1:21 PM [facility] [place] REPOSITORY HNO ID: [id number] Author: [facility]) Service: (none) Author Type: (none) Type: Progress Notes Filed: 01/10/2018 1:41 PM Note Text: [facility] Medication(s): Alecensa Reviewed MD note on 12/24. Labs reviewed. Refill appropriate at this time. America Howell, JoseD Pharmacist, Oncology [facility] P: , F: [facility] Visit Assessment - Hematology/Oncology: Assessment to use: Refill Non-Clinical Assessment: Patient confirmed: Yes Med/dose confirmed: Yes Missed doses: No Copay amount: $ 100 Payment confirmed: Yes Address confirmed: Yes Delivery date: 01/14/2018 Patient has questions: No Additional questions, comments, concerns: Shipping 01/13 for Saturday to [address] [address] Avril Farris ([facility]) PROGRESS Observed: 08/21/2017 Status: COMPLETED Source: [place] 1:21 PM [facility] [place] REPOSITORY HNO ID: [id number] Author: [facility]) Service: (none) Author Type: (none) Type: Progress Notes Filed: 02/14/2018 10:14 AM Note Text: [facility] Medication(s): Alecensa No new clinical information to review since last SPP refill encounter. Therapy continues to be appropriate for disease, patient response, and medical condition. Verification of therapeutic benefit and effectiveness with current therapy. Adverse events, barriers in adherence, and side effects assessed and addressed. Will proceed with refill with no changes. Next scans 03/20/18 and OV 03/24/18. Pt has $100 copay regardless of quantity, likely unable to accommodate for partial supply, but will adjust and act accordingly. [facility] Visit Assessment - Hematology/Oncology: Assessment to use: Refill Non-Clinical Assessment: Patient confirmed: Yes Med/dose confirmed: Yes Missed doses: No Copay amount: $ 100 Payment confirmed: Yes Address confirmed: Yes Delivery date: 02/17/2018 Patient has questions: No Additional questions, comments, concerns: Ship 02/14 for Saturday to [address] [phone] Stated about 2 weeks left Avril Farris ([facility]) Brianda Emerson, JoseD Clinical Pharmacist, Oncology, Growth Hormone [facility] P: , F: [phone] PROGRESS Observed: 08/21/2017 Status: COMPLETED Source: [place] 1:21 PM [facility] REPOSITORY HNO ID: [id number] Author: Avril Farris (Crab Steamer) Service: (none) Author Type: (none) Type: Progress Notes Filed: 03/14/2018 9:49 AM Note Text: [facility] Medication(s): Alecensa No new clinical information to review since last SPP refill encounter. Therapy continues to be appropriate for disease, patient response, and medical condition. Verification of therapeutic benefit and effectiveness with current therapy. Adverse events, barriers in adherence, and side effects assessed and addressed. Will proceed with refill with no changes. Next scans / OV scheduled 03/20/18 and 03/24/18. [facility] Visit Assessment - Hematology/Oncology: Assessment to use: Refill Non-Clinical Assessment: Patient confirmed: Yes Med/dose confirmed: Yes Missed doses: No Copay amount: $ 100 Payment confirmed: Yes Address confirmed: Yes Delivery date: 03/17/2018 Patient has questions: No Additional questions, comments, concerns: Ship 03/14 for Saturday to [address] [place] [address] About 5 days on hand Clinical Assessment: Lab monitoring inclusive of CBC, Chem-7, and other labs as pertinent for therapy: Yes Infusion base solution appropriateness and expiration dating: N/A Compliance rate assessment (oral meds only): Yes Screening for infection: Yes Adverse reactions and mitigation: Yes Medication changes and interaction assessment: Yes Additional Assessment: Radiology procedure timing to assess for disease progression: Yes Scheduled future appointments: Yes Avril Farris (Crab Steamer) Brianda Emerson PharmD Clinical Pharmacist, Oncology, Growth Hormone [facility] P: , F: [phone] PROGRESS Observed: 07/01/2017 Status: COMPLETED Source: [place] 1:38 PM [facility] REPOSITORY HNO ID: [id number] Author: Cynthia Haley (Outpatient Tech) Service: (none) Author Type: (none) Type: Progress Notes Filed: 07/01/2017 1:41 PM Note Text: [facility] Medication(s): Alecensa [facility] Visit Assessment - Hematology/Oncology: Assessment to use: Refill Non-Clinical Assessment: Patient confirmed: Yes Med/dose confirmed: Yes Additional questions, comments, concerns: Pt has 2 weeks of medication on hand. Asked me to f/u with her in 1 week. Cynthia Haley CPhT Warehouse Picker, Oncology [facility] P: , F: PROGRESS Observed: 07/01/2017 Status: COMPLETED Source: [place] 1:38 PM [facility] REPOSITORY HNO ID: [id number] Author: Cynthia Haley (Outpatient Tech) Service: (none) Author Type: (none) Type: Progress Notes Filed: 07/12/2017 8:29 AM Note Text: [facility] Medication(s): Alecensa [facility] Visit Assessment - Hematology/Oncology: Assessment to use: Refill Non-Clinical Assessment: Patient confirmed: Yes Med/dose confirmed: Yes Copay amount: $ 100 Payment confirmed: Yes Address confirmed: Yes Delivery date: 07/15/2017 Patient has questions: No Clinical Assessment: Lab monitoring inclusive of CBC, Chem-7, and other labs as pertinent for therapy: Yes Infusion base solution appropriateness and expiration dating: N/A Compliance rate assessment (oral meds only): Yes Chemo cycle timing assessment (infusion meds only): Yes Medication changes and interaction assessment: Yes Cynthia Haley CPhT Warehouse Picker, Oncology [facility] P: , F: Noted confirmation per EPIC messages that patient's dose is 3 capsules twice daily. Jose WilsonD, BCPS Clinical Pharmacist, Oncology [facility] P: , F: PROGRESS Observed: 07/01/2017 Status: COMPLETED Source: [place] 1:38 PM [facility] REPOSITORY HNO ID: [id number] Author: Cynthia Haley (Outpatient Tech) Service: (none) Author Type: (none) Type: Progress Notes Filed: 07/24/2017 1:50 PM Note Text: [facility] Assessment Medication(s): Alecensa [facility] Visit Assessment - Hematology/Oncology: Assessment to use: Refill Non-Clinical Assessment: Patient confirmed: Yes Med/dose confirmed: Yes Copay amount: $ 100 Payment confirmed: Yes Address confirmed: Yes Delivery date: 07/25/2017 Patient has questions: No Additional questions, comments, concerns: Pt called in 07/11 and spoke with Dom. She cancelled her delivery for 07/15 and switched to a 07/25 delivery. She was dose decreased and had a lot of extra on hand. Cynthia Haley CPhT Warehouse Picker, Oncology [facility] P: , F: Noted dose decreased to 2 capsules BID. Sent refill request and will follow up as appropriate based on new supply sent out (will have 60 capsules extra --15 DS). PROGRESS Observed: 06/27/2017 Status: COMPLETED Source: [place] 1:19 PM [facility] [place] REPOSITORY HNO ID: [id number] Author: Kat Butler MD Service: (none) Author Type: Physician Type: Progress Notes Filed: 06/27/2017 2:43 PM Note Text: [facility] [place] [facility] Department of Cardiovascular Medicine SECTION OF VASCULAR MEDICINE OUTPATIENT VISIT DATE June 27, 2017 OUTPATIENT VISIT TYPE CONSULTATION Consult regarding: Leg edema Consult requested by: Zaina Crooks My final recommendations will be communicated back to the requesting physician by way of the shared medical record or by letter. Primary care physician: Katie Fernández DO History of present illness: Lisette Crisostomo is a 66 year old female who presents as New Consult (bilateral leg swelling) PMH significant for: __Lung adenocarcinoma stage 4, dx 2017. Currently on alectinib 600mg bid starting 10/29/2016; dose held for a week 11/2016 then restarted at reduced dose of 450 mg po bid 11/20/16 due to SOBOE, edema. __Also with biopsy-proven thyroid cancer diagnosed in 2017, being observed. __successfully quit smoking. She confirms that she had the therapy interrupted and dose reduced for the edema. Some improvement in symptoms when tx was held in October. Really no difference since recent dose reduction. Knees feel tight and achy, uses Biofreeze. Starting to hurt more d/t wt going up with fluid retention. No swelling in face or arms. Definitely swelling around her abdomen / midsection also. About a 30lb weight / fluid retention gain since October 2016. No history of difficulty with leg swelling other than when she was . No hx of VTE. Has not had any ultrasound to eval for DVT. Has not tried or had recommended yet any compression socks. Allergies: is allergic to codeine and penicillins. Medications: BYSTOLIC 5 mg tablet Take 5 mg by mouth once daily. fexofenadine (MARGUERITE ALLERGY) 180 mg tablet Take 180 mg by mouth once daily. iv contrast (radiology procedure) CT Chest Abdomen-Inject, intravenously, once for 1 dose.No IV access, insert saline lock prior to the beginning of sedation, infusion, injection of imaging exam. Discontinue saline lock post exam. If Pt. has a central line or IVAD, may access for administration according to line specific nursing protocol. Once exam is complete flush line and de-access according to line specific nursing protocol in the CT contrast administration guidelines link. enteric contrast (radiology procedure) For CT Chest Abdomen W IVCON order Administer, As Directed One Time Only, via Oral, Rectal, both Oral and Rectal, Enteric Tube, Stoma or Indwelling Catheter, Enteric Contrast as designated per enteric contrast guidelines alectinib (ALECENSA) 150 mg cap Take 3 capsules by mouth twice daily. Take with food. Swallow capsule whole prochlorperazine (COMPAZINE) 10 mg tablet Take 1 tablet by mouth every 6 hours as needed (nausea). LORazepam (ATIVAN) 1 mg tablet take 1-2 tabs by mouth 30 minutes prior to MRI metFORMIN ER (GLUCOPHAGE XR) 500 mg 24 hr tablet Take 1,500 mg by mouth daily at bedtime. simvastatin (ZOCOR) 10 mg tablet Take 10 mg by mouth daily at bedtime. omeprazole (PRILOSEC) 20 mg capsule Take 20 mg by mouth once daily. Past medical history: has a past medical history of Allergic rhinitis; Arrhythmia; Diabetes (HCC); Hyperlipidemia; Hypertension; Hypoglycemia, unspecified; Mental disorder; and Snoring. Past surgical history: has a past surgical history that includes removal gallbladder (1969's); correct bunion,simple (1988); lumpectomy/radiotherapy diag mamm/a10 (1990); and colonoscopy (2014). Family history: family history includes Breast Cancer in her maternal aunt and mother; Diabetes in her maternal grandmother and paternal grandmother; Heart in her father; Stroke in her father. Social history: reports that she quit smoking about 8 months ago. Her smoking use included Cigarettes. She has a 17.50 pack-year smoking history. She has never used smokeless tobacco. She reports that she does not drink alcohol or use illicit drugs. REVIEW OF SYSTEMS: General Fever or chills - No Night sweats - No Change in weight - YES Lumps in groin, underarms - No Neurological Headaches - No Seizures - No Passing out - No Dizziness/light headedness - No Numbness, tingling, pins or needles - No Weakness in arms or legs - No Head, eyes, ears, nose and throat Changes in hearing - No Changes in vision - No Nose bleeds - No Difficulty or pain with swallowing - No Cardiovascular Chest pain or pressure - No Palpitations - No Irregular heartbeat - No Shortness of breath - Some Respiratory Cough - No Wheezing - No Shortness of breath at rest - No Shortness of breath with exertion - Some Coughing up blood - No Sleep apnea - No Gastrointestinal Abdominal pain - No Nausea/vomiting - No Diarrhea/Constipation - No Stomach pain after eating - No Blood in stool - No Black stool - No Genitourinary Pain with urination - No Blood in urine - No Gynecology - No Abnormal vaginal bleeding - No History of loss - No Extremity Bulging veins - No Swelling in arms or legs - YES Redness of extremities - No Pain with walking - No Color change of hands/feet/digits - No Musculoskeletal Joint pain - Some Joint swelling - Some Back pain - No Muscle pain or ache - No Skin Rash - No Lesions - No Slow healing sores - No Tight or thickened skin - No Hematology Low blood counts - No Easy bruising - No Blood transfusions - No Psychology Depressed mood - No Anxiety or history of panic attacks - No History of recreational drug use - No Cancer screening (up to date?): Colonoscopy: YES Pap smear: No Mammogram: YES Prostate: N/A Smoking history: -Current or past smoker? former -If current smoker, are you interested in help with quitting? N/A Physical exam: BP 122/54 Pulse 60 Temp 36.9 ?C (98.4 ?F) (Temporal Artery) Ht 147.3 cm (4' 10) Wt 68 kg (150 lb) SpO2 98% BMI 31.35 kg/m2 General: Alert and oriented, in no acute distress, pleasant mood. Skin: Healthy, intact, no ulcerations, no rashes. HEENT: Head normocephalic, extraocular muscles intact, sclera anicteric, nasal and oral mucosa moist and pink, neck supple, no JVD, no carotid bruit. Cardiovascular: Heart has a regular rate and rhythm without murmur. Respiratory: Lungs clear auscultation bilaterally. Gastrointestinal: Abdomen soft and nontender. No abdominal bruit or palpable mass. No abd wall pitting edema. No collateral veins noted. Musculoskeletal: No cyanosis or clubbing. Peripheral vascular: Dorsalis pedis and posterior tibial pulses 2+/2 bilaterally. Feet and toes warm pink and well perfused. Lower extremities: Bilateral lower extremity mild edema with mild pretibial pitting mostly notable d/t sock lines; no appreciable pitting above the knees. No edema in the feet. Bilat knees are slightly full appearing but no abdirahman synovitis/warmth/erythema. Few scattered small spider varicose veins over bilat lower legs. No hyperpigmentation. No fibrosis. Imaging Reviewed Labs Reviewed Impression Pleasant 66yo lady from [facility] referred for leg edema by her oncologist. Accompanied by her sister today. PMH significant for: __Lung adenocarcinoma stage 4, dx 2017. Currently on alectinib 600mg bid starting 10/29/2016; dose held for a week 11/2016 then restarted at reduced dose of 450 mg po bid 11/20/16 due to SOBOE, edema. __Also with biopsy-proven thyroid cancer diagnosed in 2017, being observed. __successfully quit smoking recently __HTN __DM type 2 on PO therapy __HPL __reported knee OA Leg edema started suddenly after starting immunotherapy for malignancy, and truly is felt to be SE from therapy. She did note improvement when she came off briefly, but unfortunately has not improved significantly when dose was reduced. Most concerned as she has put on 30lb -- does admit that she is also eating more, possibly due to tobacco cessation, but feels that she has edema around the abdomen/flanks also (hard to detect any abdirahman abd wall edema on exam today) as clothes fit tighter, and seems worse at end of the day. Her knees feel tight, and she knows that the weight gain is putting more stress on them. No prior hx of venous thromboembolism. Only few small scattered spider varicose veins on lower extremities, no other significant s/o chronic venous insufficiency. She recalls that the only other time she had any leg edema was remotely with pregnancies. Recommendations: __Discussed different compression garment options with her. Frankly, do not think she would benefit from knee high (would collect more edema at the knees, which is a concern for her); she also does not think that she would be able to tolerate Rx pantyhose style, which is fair. 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 Will use bike short style shapewear garment over top to keep in place. Reviewed that it may be a little harder to find suitable garments as she is petite 4'9; suggest Sigvaris in short length. Reviewed local medical supply stores and online vendors -- overall strongly recommend that she go DME store so she can be measured/fit for stockings. Put on each morning, take off at night. Elevate legs as much as possible when resting. Apply moisturizer to the legs at night. __Recommend venous duplex of the lower extremities to rule out DVT. Overall less likely to have DVT as cause of her sx as these do seem to correlate with her immunotherapy, but given malignancy and increased risk do recommend obtaining. She will schedule. __I do not think that she has 30lb of fluid retention on her; reviewed need to monitor diet and gradually lose some weight; stay active and keep exercising (she does enjoy exercise classes) __Follow up in 3mo. Kat Butler MD CNOV Observed: 06/27/2017 Status: COMPLETED Source: [place] 12:45 PM [facility] REPOSITORY Office Visit (PERVMN) LISETTE CRISOSTOMO ([id number]) 1950 F Date Time Provider Department 06/27/17 12:45 PM KAT BUTLER During your visit today, we recorded the following information about you: Temperature Pulse Blood pressure Weight 98.4 degrees 60/minute 122/54 68 kg Height 1.473 m Kat Butler MD, MD 06/27/2017 2:43 PM Signed [facility] [place] [facility] Department of Cardiovascular Medicine SECTION OF VASCULAR MEDICINE OUTPATIENT VISIT DATE June 27, 2017 OUTPATIENT VISIT TYPE CONSULTATION Consult regarding: Leg edema Consult requested by: Zaina Crooks My final recommendations will be communicated back to the requesting physician by way of the shared medical record or by letter. Primary care physician: Katie Fernández DO History of present illness: Lisette Crisostomo is a 66 year old female who presents as New Consult (bilateral leg swelling) PMH significant for: __Lung adenocarcinoma stage 4, dx 2017. Currently on alectinib 600mg bid starting 10/29/2016; dose held for a week 11/2016 then restarted at reduced dose of 450 mg po bid 11/20/16 due to SOBOE, edema. __Also with biopsy-proven thyroid cancer diagnosed in 2017, being observed. __successfully quit smoking. She confirms that she had the therapy interrupted and dose reduced for the edema. Some improvement in symptoms when tx was held in October. Really no difference since recent dose reduction. Knees feel tight and achy, uses Biofreeze. Starting to hurt more d/t wt going up with fluid retention. No swelling in face or arms. Definitely swelling around her abdomen / midsection also. About a 30lb weight / fluid retention gain since October 2016. No history of difficulty with leg swelling other than when she was . No hx of VTE. Has not had any ultrasound to eval for DVT. Has not tried or had recommended yet any compression socks. Allergies: is allergic to codeine and penicillins. Medications: BYSTOLIC 5 mg tablet Take 5 mg by mouth once daily. fexofenadine (MARGUERITE ALLERGY) 180 mg tablet Take 180 mg by mouth once daily. iv contrast (radiology procedure) CT Chest Abdomen-Inject, intravenously, once for 1 dose.No IV access, insert saline lock prior to the beginning of sedation, infusion, injection of imaging exam. Discontinue saline lock post exam. If Pt. has a central line or IVAD, may access for administration according to line specific nursing protocol. Once exam is complete flush line and de-access according to line specific nursing protocol in the CT contrast administration guidelines link. enteric contrast (radiology procedure) For CT Chest Abdomen W IVCON order Administer, As Directed One Time Only, via Oral, Rectal, both Oral and Rectal, Enteric Tube, Stoma or Indwelling Catheter, Enteric Contrast as designated per enteric contrast guidelines alectinib (ALECENSA) 150 mg cap Take 3 capsules by mouth twice daily. Take with food. Swallow capsule whole prochlorperazine (COMPAZINE) 10 mg tablet Take 1 tablet by mouth every 6 hours as needed (nausea). LORazepam (ATIVAN) 1 mg tablet take 1-2 tabs by mouth 30 minutes prior to MRI metFORMIN ER (GLUCOPHAGE XR) 500 mg 24 hr tablet Take 1,500 mg by mouth daily at bedtime. simvastatin (ZOCOR) 10 mg tablet Take 10 mg by mouth daily at bedtime. omeprazole (PRILOSEC) 20 mg capsule Take 20 mg by mouth once daily. Past medical history: has a past medical history of Allergic rhinitis; Arrhythmia; Diabetes (HCC); Hyperlipidemia; Hypertension; Hypoglycemia, unspecified; Mental disorder; and Snoring. Past surgical history: has a past surgical history that includes removal gallbladder (1969'); correct bunion,simple (1988); lumpectomy/radiotherapy diag mamm/a10 (1990); and colonoscopy (2014). Family history: family history includes Breast Cancer in her maternal aunt and mother; Diabetes in her maternal grandmother and paternal grandmother; Heart in her father; Stroke in her father. Social history: reports that she quit smoking about 8 months ago. Her smoking use included Cigarettes. She has a 17.50 pack-year smoking history. She has never used smokeless tobacco. She reports that she does not drink alcohol or use illicit drugs. REVIEW OF SYSTEMS: General Fever or chills - No Night sweats - No Change in weight - YES Lumps in groin, underarms - No Neurological Headaches - No Seizures - No Passing out - No Dizziness/light headedness - No Numbness, tingling, pins or needles - No Weakness in arms or legs - No Head, eyes, ears, nose and throat Changes in hearing - No Changes in vision - No Nose bleeds - No Difficulty or pain with swallowing - No Cardiovascular Chest pain or pressure - No Palpitations - No Irregular heartbeat - No Shortness of breath - Some Respiratory Cough - No Wheezing - No Shortness of breath at rest - No Shortness of breath with exertion - Some Coughing up blood - No Sleep apnea - No Gastrointestinal Abdominal pain - No Nausea/vomiting - No Diarrhea/Constipation - No Stomach pain after eating - No Blood in stool - No Black stool - No Genitourinary Pain with urination - No Blood in urine - No Gynecology - No Abnormal vaginal bleeding - No History of loss - No Extremity Bulging veins - No Swelling in arms or legs - YES Redness of extremities - No Pain with walking - No Color change of hands/feet/digits - No Musculoskeletal Joint pain - Some Joint swelling - Some Back pain - No Muscle pain or ache - No Skin Rash - No Lesions - No Slow healing sores - No Tight or thickened skin - No Hematology Low blood counts - No Easy bruising - No Blood transfusions - No Psychology Depressed mood - No Anxiety or history of panic attacks - No History of recreational drug use - No Cancer screening (up to date?): Colonoscopy: YES Pap smear: No Mammogram: YES Prostate: N/A Smoking history: -Current or past smoker? former -If current smoker, are you interested in help with quitting? N/A Physical exam: BP 122/54 Pulse 60 Temp 36.9 ?C (98.4 ?F) (Temporal Artery) Ht 147.3 cm (4' 10ANDquot;) Wt 68 kg (150 lb) SpO2 98% BMI 31.35 kg/m2 General: Alert and oriented, in no acute distress, pleasant mood. Skin: Healthy, intact, no ulcerations, no rashes. HEENT: Head normocephalic, extraocular muscles intact, sclera anicteric, nasal and oral mucosa moist and pink, neck supple, no JVD, no carotid bruit. Cardiovascular: Heart has a regular rate and rhythm without murmur. Respiratory: Lungs clear auscultation bilaterally. Gastrointestinal: Abdomen soft and nontender. No abdominal bruit or palpable mass. No abd wall pitting edema. No collateral veins noted. Musculoskeletal: No cyanosis or clubbing. Peripheral vascular: Dorsalis pedis and posterior tibial pulses 2+/2 bilaterally. Feet and toes warm pink and well perfused. Lower extremities: Bilateral lower extremity mild edema with mild pretibial pitting mostly notable d/t sock lines; no appreciable pitting above the knees. No edema in the feet. Bilat knees are slightly ANDquot;fullANDquot; appearing but no abdirahman synovitis/warmth/erythema. Few scattered small spider varicose veins over bilat lower legs. No hyperpigmentation. No fibrosis. Imaging Reviewed Labs Reviewed Impression Pleasant 66yo lady from [facility] referred for leg edema by her oncologist. Accompanied by her sister today. PMH significant for: __Lung adenocarcinoma stage 4, dx 2017. Currently on alectinib 600mg bid starting 10/29/2016; dose held for a week 11/2016 then restarted at reduced dose of 450 mg po bid 11/20/16 due to SOBOE, edema. __Also with biopsy-proven thyroid cancer diagnosed in 2017, being observed. __successfully quit smoking recently __HTN __DM type 2 on PO therapy __HPL __reported knee OA Leg edema started suddenly after starting immunotherapy for malignancy, and truly is felt to be SE from therapy. She did note improvement when she came off briefly, but unfortunately has not improved significantly when dose was reduced. Most concerned as she has put on 30lb -- does admit that she is also eating more, possibly due to tobacco cessation, but feels that she has edema around the abdomen/flanks also (hard to detect any abdirahman abd wall edema on exam today) as clothes fit tighter, and seems worse at end of the day. Her knees feel tight, and she knows that the weight gain is putting more stress on them. No prior hx of venous thromboembolism. Only few small scattered spider varicose veins on lower extremities, no other significant s/o chronic venous insufficiency. She recalls that the only other time she had any leg edema was remotely with pregnancies. Recommendations: __Discussed different compression garment options with her. Frankly, do not think she would benefit from knee high (would collect more edema at the knees, which is a concern for her); she also does not think that she would be able to tolerate Rx pantyhose style, which is fair. 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 Will use ANDquot;bike shortANDquot; style shapewear garment over top to keep in place. Reviewed that it may be a little harder to find suitable garments as she is petite 4'9ANDquot;; suggest Sigvaris in ANDquot;shortANDquot; length. Reviewed local medical supply stores and online vendors -- overall strongly recommend that she go DME store so she can be measured/fit for stockings. Put on each morning, take off at night. Elevate legs as much as possible when resting. Apply moisturizer to the legs at night. __Recommend venous duplex of the lower extremities to rule out DVT. Overall less likely to have DVT as cause of her sx as these do seem to correlate with her immunotherapy, but given malignancy and increased risk do recommend obtaining. She will schedule. __I do not think that she has 30lb of fluid retention on her; reviewed need to monitor diet and gradually lose some weight; stay active and keep exercising (she does enjoy exercise classes) __Follow up in 3mo. MD Elaina Reeder RN 06/27/2017 4:42 PM Signed Provided pt. with information on Strength: 15 - 20 mmHg pressure Length: thigh-high stockings. Provided ANDamp; instructed patient and sister, with Stocking Wear and Care sheet. She will look locally for them as we do not have her size. They verbalized understanding ANDamp; will call for any problems. Elaina Stevens RN Referring Provider: ZAINA CROOKS [[id number]] Allergies As of Date: 06/27/2017 Noted Allergy Reaction CODEINE 04/16/2007 5 - Intolerance PENICILLINS 04/16/2007 5 - Intolerance Date Reviewed: 06/27/2017 Reviewed by: Kat Butler MD - Fully Assessed Reason for Visit: Consult [502] Cmt: bilateral leg swelling Primary Visit Diagnosis:Bilateral leg edema [R60.0] Other Visit Diagnoses:Hypercoagulable state (HCC) [D68.59] Primary adenocarcinoma of lung, unspecified laterality (HCC) [C34.90] Thyroid cancer (HCC) [C73] Weight gain [R63.5] Former smoker [Z87.891] Order(s):US LEG VEIN DVT [facility] [[id number]] Order #: [id number] FUTURE COMPRESSION STOCKINGS [[id number]] Order #: [id number] Prescriptions as of 06/27/2017 Sig: BYSTOLIC 5 MG TABLET Take 5 mg by mouth once daily* FEXOFENADINE 180 MG TABLET Take 180 mg by mouth once melo* IV CONTRAST (RADIOLOGY PROCED* CT Chest Abdomen-Inject, intr* ENTERIC CONTRAST (RADIOLOGY P* For CT Chest Abdomen W IVCON * ALECTINIB 150 MG CAPSULE Take 3 capsules by mouth twic* Patient taking differently: Take 300 mg by mouth twice da* PROCHLORPERAZINE MALEATE 10 M* Take 1 tablet by mouth every * LORAZEPAM 1 MG TABLET take 1-2 tabs by mouth 30 min* METFORMIN ER 500 MG TABLET,EX* Take 1,500 mg by mouth daily * SIMVASTATIN 10 MG TABLET Take 10 mg by mouth daily at * OMEPRAZOLE 20 MG CAPSULE,GAGAN* Take 20 mg by mouth once scarlet* Problem List As Of Date 06/27/2017 Noted Resolved Metastatic carcinoma (HCC) [C79.9] INVALID FOR*10/11/2016 Primary lung adenocarcinoma (HCC) [C34.90] INVALID FOR* Thyroid cancer (HCC) [C73] INVALID FOR* Peripheral edema [R60.9] INVALID FOR* Visit Notes: >> Elaina Stevens RN [facility] Jun 27, 2017 4:35 PM Status: Signed Provided pt. with information on Strength: 15 - 20 mmHg pressure Length: thigh-high stockings. Provided AND instructed patient and sister, with Stocking Wear and Care sheet. She will look locally for them as we do not have her size. They verbalized understanding AND will call for any problems. Elaina Stevens RN Disposition: Return in about 3 months (around 09/27/2017) for follow up in o. Follow-up and Disposition History Recorded Classic SmartForms filed during this visit: [facility] Vitals Encounter Status:Closed by KAT BUTLER MD on 06/27/17 PROGRESS Observed: 06/27/2017 Status: COMPLETED Source: [place] 11:00 AM [facility] REPOSITORY HNO ID: [id number] Author: Zaina Crooks Service: (none) Author Type: Physician Type: Progress Notes Filed: 06/27/2017 11:06 AM Note Text: DIAGNOSIS: Lung Adenocarcinoma diagnosed in 2017. ? BIOMARKERS: ALK IHC and FISH+ ?? STAGE: Clinical [id number]- IV (cervical and abdominal adenopathy) ? METRICS: Stage 4 Was napaimute doublet chemotherapy or molecular therapy (if EGFR mutant or ALK/ROS1-rearranged) offered for PS-0-1 and no initial therapy? Yes and Pending Palliative Medicine Provider: No ? TREATMENT HISTORY: None RELEVANT MEDICAL ISSUES: Biopsy-proven thyroid cancer diagnosed in 2017, being observed ? CURRENT TREATMENT: Alectinib 600mg bid starting 10/29/2016; dose held for a week 11/2016 then restarted at reduced dose of 450 mg po bid 11/20/16 due to SOBOE, edema INTERVAL HISTORY: Ms. Crisostomo returns for follow up and scans on alectinib. She feels quite good overall, good energy and appetite. Mild dyspnea on exertion stable to slightly worse, doing yoga. No cough. No hemoptysis. No nausea, vomiting, constipation or diarrhea. She notes occasional episodes of dysphagia; denies choking. No pain. No headaches. No visual changes. She does have some mild swelling (LE, abdomen) which is slightly worse. The remainder of the review of systems is negative. REVIEW OF SYSTEMS: General: weight up, denies fatigue; denies fever, chills Skin: Denies changes in hair, itching, and rashes HEENT: Denies acute visual changes, tearing, rhinorrhea, hoarseness, and sore throat Respiratory: SOBOE as noted; + cough improving, no sputum, hemoptysis GI: Appetite as noted; denies n/v, dysphagia, diarrhea Vascular: + B/L LE edema improved Neurologic: + occasional R hand numbness, tingling unchanged PAST MEDICAL HISTORY Diagnosis Date - Allergic rhinitis - Arrhythmia - Diabetes (HCC) - Hyperlipidemia - Hypertension - Hypoglycemia, unspecified - Mental disorder - Snoring Social History Marital status: Spouse name: Years of education: Number of children: Social History Main Topics Smoking status: Former Smoker Packs/day: 0.50 Years: 35.00 Types: Cigarettes Quit date: 10/19/2016 Smokeless status: Never Used Alcohol use: No Drug use: No Sexual activity: Yes Partners with: Male Performance Status: ECOG 0 PHYSICAL EXAM: Vitals BP (!) 114/49 Pulse (!) 56 Temp 36.4 ?C (97.5 ?F) (Oral) Resp 16 Wt 69.1 kg (152 lb 6.4 oz) SpO2 100% BMI 32.39 kg/m2 General: Upon examination, Ms. Crisostomo is an age-appropriate 66 year old female. Her affect and mood are pleasant and appropriate. She is alert and oriented and in NAD. She is accompanied by her sister today. HEENT: PERRL, sclerae white, oropharynx without erythema/exudate; lips and gums without lesions Skin: No visible rashes Heart: RRR, no M/G/R noted Lungs: Normal respiratory effort; CTA B/L Vascular: Trace bilateral LE edema Abdomen: soft, non-tender to palpation Lymphatic: no palpable supra/infraclavicular nodes Neurologic: Gait is steady Laboratory Data reviewed and in EPIC CT scans reviewed and show continued improvement in lung lesion and diffuse adenopathy. Thyroid mass slightly larger. ASSESSMENT/PLAN: Ms. Crisostomo is a 66 year old female with metastatic ALK+ lung adenocarcinoma, with favorable response to alectinib. Continue alectinib and will see her back in 3 months. Seeing vascular medicine to help with edema. Thyroid cancer read as larger but looks clinically stable on my review, will continue observation. Signed: Zaina Crooks MD Pager Number: [phone] Date and Time of Service: Date: 06/27/2017 Time: 11:03 AM OVSP Observed: 06/27/2017 Status: COMPLETED Source: [place] 10:10 AM [facility] REPOSITORY Visit (SP) Office (HEMCA3) TARALISETTE PEÑA ([id number]) 1950 F Date Time Provider Department 06/27/17 10:10 AM [facility] your visit today, we recorded the following information about you: Temperature Pulse Respiration Blood pressure 97.5 degrees 56/minute 16/minute 114/49 Weight 69.1 kg Kimberly Quintanilla, RN, RN 06/27/2017 10:36 AM Signed Additional intake questions: Has the patient had nausea, vomiting, diarrhea, constipation, fatigue for ANDgt; 1 week? Diarrhea, Yes, MD Notified Does the patient have a decreased appetite? No Does patient want to see a Gifts Officer? No (yes to any of above refer patient to schedulers for dietitian appointment) ) Does patient have any new or increased numbness or tingling of extremities? No Is patient interested in fertility information? No Does patient need any prescription refills? No Electronically Signed By: NORA Huynh MD 06/27/2017 10:50 AM Signed Please schedule CT RETURN [address] SCHEDULING QUESTIONNAIRE Is the patient 60 or older or does the patient have diabetes or a history of kidney disease other than stones? Yes, a Creatinine level is required. WIll this be ready at time of exam? Yes - drawn at [facility] Hydration: No Is the associated diagnosis or reason for exam Peritoneal Dialysis, Prerenal Transplant, Triphasic Liver or AAA (Abdominal Aoritc Aneurism) or anything with Adrenals or does the order indicate Liver Exam, Kidney Exam or Urogram? No Is there any possibility the patient may be ? No Zaina Crooks MD 06/27/2017 11:06 AM Signed DIAGNOSIS: Lung Adenocarcinoma diagnosed in 2017. ? BIOMARKERS: ALK IHC and FISH+ ?? STAGE: Clinical [id number]- [id number] (cervical and abdominal adenopathy) ? METRICS: Stage 4 Was napaimute doublet chemotherapy or molecular therapy (if EGFR mutant or ALK/ROS1-rearranged) offered for PS-0-1 and no initial therapy? Yes and Pending Palliative Medicine Provider: No ? TREATMENT HISTORY: None RELEVANT MEDICAL ISSUES: Biopsy-proven thyroid cancer diagnosed in 2016, being observed ? CURRENT TREATMENT: Alectinib 600mg bid starting 10/29/2016; dose held for a week 11/2016 then restarted at reduced dose of 450 mg po bid 11/20/16 due to SOBOE, edema INTERVAL HISTORY: Ms. Crisostomo returns for follow up and scans on alectinib. She feels quite good overall, good energy and appetite. Mild dyspnea on exertion stable to slightly worse, doing yoga. No cough. No hemoptysis. No nausea, vomiting, constipation or diarrhea. She notes occasional episodes of dysphagia; denies choking. No pain. No headaches. No visual changes. She does have some mild swelling (LE, abdomen) which is slightly worse. The remainder of the review of systems is negative. REVIEW OF SYSTEMS: General: weight up, denies fatigue; denies fever, chills Skin: Denies changes in hair, itching, and rashes HEENT: Denies acute visual changes, tearing, rhinorrhea, hoarseness, and sore throat Respiratory: SOBOE as noted; + cough improving, no sputum, hemoptysis GI: Appetite as noted; denies n/v, dysphagia, diarrhea Vascular: + B/L LE edema improved Neurologic: + occasional R hand numbness, tingling unchanged PAST MEDICAL HISTORY Diagnosis Date - Allergic rhinitis - Arrhythmia - Diabetes (HCC) - Hyperlipidemia - Hypertension - Hypoglycemia, unspecified - Mental disorder - Snoring Social History Marital status: Spouse name: Years of education: Number of children: Social History Main Topics Smoking status: Former Smoker Packs/day: 0.50 Years: 35.00 Types: Cigarettes Quit date: 10/19/2016 Smokeless status: Never Used Alcohol use: No Drug use: No Sexual activity: Yes Partners with: Male Performance Status: ECOG 0 PHYSICAL EXAM: Vitals BP (!) 114/49 Pulse (!) 56 Temp 36.4 ?C (97.5 ?F) (Oral) Resp 16 Wt 69.1 kg (152 lb 6.4 oz) SpO2 100% BMI 32.39 kg/m2 General: Upon examination, Ms. Crisostomo is an age-appropriate 66 year old female. Her affect and mood are pleasant and appropriate. She is alert and oriented and in NAD. She is accompanied by her sister today. HEENT: PERRL, sclerae white, oropharynx without erythema/exudate; lips and gums without lesions Skin: No visible rashes Heart: RRR, no M/G/R noted Lungs: Normal respiratory effort; CTA B/L Vascular: Trace bilateral LE edema Abdomen: soft, non-tender to palpation Lymphatic: no palpable supra/infraclavicular nodes Neurologic: Gait is steady Laboratory Data reviewed and in EPIC CT scans reviewed and show continued improvement in lung lesion and diffuse adenopathy. Thyroid mass slightly larger. ASSESSMENT/PLAN: Ms. Crisostomo is a 66 year old female with metastatic ALK+ lung adenocarcinoma, with favorable response to alectinib. Continue alectinib and will see her back in 3 months. Seeing vascular medicine to help with edema. Thyroid cancer read as larger but looks clinically stable on my review, will continue observation. Signed: Zaina Crooks MD Pager Number: [phone] Date and Time of Service: Date: 06/27/2017 Time: 11:03 AM Referring Provider: ZAINA CROOKS [[id number]] Allergies As of Date: 06/27/2017 Noted Allergy Reaction CODEINE 04/16/2007 5 - Intolerance PENICILLINS 04/16/2007 5 - Intolerance Date Reviewed: 06/27/2017 Reviewed by: Kimberly (Rn) NORA Quintanilla - Fully Assessed Reason for Visit: Established Patient [175] Primary Visit Diagnosis:Primary adenocarcinoma of lung, unspecified laterality (HCC) [C34.90] Other Visit Diagnosis:Peripheral edema [R60.9] Order(s):COMP METABOLIC PANEL [SQCMP] Order #: [id number] FUTURE CBC + DIFF [SQCBCDIF] Order #: [id number] FUTURE CT CHEST W IVCON [[id number]] Order #: [id number] FUTURE CT ABDOMEN W IVCON [[id number]] Order #: [id number] FUTURE iv contrast (radiology procedure)CT Chest Abdomen-Inject, intravenously, once for 1 dose.No IV access, insert saline lock prior to the beginning of sedation, infusion, injection of imaging exam. Discontinue saline lock post exam. If Pt. has a central line or IVAD, may access for administration according to line specific nursing protocol. Once exam is complete flush line and de- access according to line specific nursing protocol in the CT contrast administration guidelines link.Disp: 1 EachRfl: 0 enteric contrast (radiology procedure)For CT Chest Abdomen W IVCON order Administer, As Directed One Time Only, via Oral, Rectal, both Oral and Rectal, Enteric Tube, Stoma or Indwelling Catheter, Enteric Contrast as designated per enteric contrast guidelinesDisp: 1 EachRfl: 0 CT NECK SOFT TISSUE W IVCON [[id number]] Order #: [id number] STANDING iv contrast (radiology procedure)Disp: Rfl: CT NECK SOFT TISSUE W IVCON [[id number]] Order #: [id number] Disposition: Return in about 3 months (around 09/27/2017). Follow-up and Disposition History Recorded Prescriptions as of 06/27/2017 Sig: ALECTINIB 150 MG CAPSULE Take 3 capsules by mouth twic* PROCHLORPERAZINE MALEATE 10 M* Take 1 tablet by mouth every * LORAZEPAM 1 MG TABLET take 1-2 tabs by mouth 30 min* METFORMIN ER 500 MG TABLET,EX* 1,500 mg. BYSTOLIC 5 MG TABLET SIMVASTATIN 10 MG TABLET Take 10 mg by mouth daily at * OMEPRAZOLE 20 MG CAPSULE,GAGAN* FEXOFENADINE 180 MG TABLET Take 180 mg by mouth once melo* IV CONTRAST (RADIOLOGY PROCED* CT Chest Abdomen-Inject, intr* ENTERIC CONTRAST (RADIOLOGY P* For CT Chest Abdomen W IVCON * Problem List As Of Date 06/27/2017 Noted Resolved Metastatic carcinoma (HCC) [C79.9] INVALID FOR*10/11/2016 Primary lung adenocarcinoma (HCC) [C34.90] INVALID FOR* Thyroid cancer (HCC) [C73] INVALID FOR* Peripheral edema [R60.9] INVALID FOR* Other instructions from your clinician: Please schedule CT RETURN [address] SCHEDULING QUESTIONNAIRE Is the patient 60 or older or does the patient have diabetes or a history of kidney disease other than stones? Yes, a Creatinine level is required. WIll this be ready at time of exam? Yes - drawn at [facility] Hydration: No Is the associated diagnosis or reason for exam Peritoneal Dialysis, Prerenal Transplant, Triphasic Liver or AAA (Abdominal Aoritc Aneurism) or anything with Adrenals or does the order indicate Liver Exam, Kidney Exam or Urogram? No Is there any possibility the patient may be ? No Visit Notes: >> Kimberly Quintanilla RN [facility] Jun 27, 2017 10:13 AM Status: Signed Additional intake questions: Has the patient had nausea, vomiting, diarrhea, constipation, fatigue for > 1 week? Diarrhea, Yes, MD Notified Does the patient have a decreased appetite? No Does patient want to see a Gifts Officer? No (yes to any of above refer patient to schedulers for dietitian appointment) ) Does patient have any new or increased numbness or tingling of extremities? No Is patient interested in fertility information? No Does patient need any prescription refills? No Electronically Signed By: Kimberly Quintanilla RN Encounter Status:Closed by ZAINA CROOKS MD on 06/27/17 PROGRESS Observed: 06/26/2017 Status: COMPLETED Source: [place] 3:50 PM [facility] REPOSITORY HNO ID: [id number] Author: Joceline Thrasher Service: (none) Author Type: (none) Type: Progress Notes Filed: 06/26/2017 3:57 PM Note Text: Radiology Service Progress Note PATIENT NAME: Lisette Crisostomo DATE OF SERVICE: June 26, 2017 TIME: 3:50 PM PATIENT IDENTITY VERIFICATION COMPLETED USING TWO (2) METHODS: Patient confirmed name verbally and Date of . PATIENT GENDER DATA: Female. status: : No status: NO. PATIENT RELEVANT IMPLANT DATA REVIEWED: Not Applicable CONTRAST INDUCED NEPHROPATHY RISK FACTORS: Patient age > 60 years CREATININE: Creatinine Date Value Ref Range Status 06/25/2017 1.02 (H) 0.58 - 0.96 mg/dL Final 03/18/2017 0.98 (H) 0.58 - 0.96 mg/dL Final 12/06/2016 0.89 0.58 - 0.96 mg/dL Final eGFR-All Other Races Date Value Ref Range Status 06/25/2017 54 . Final Comment: eGFR (Estimated GFR) Units of measure: mL/min/1.73 meters squared eGFR is derived from the reexpressed MDRD Study equation using the following parameters: serum creatinine, age, gender and race. The creatinine assay has been calibrated to be traceable to IDMS. An eGFR <60 mL/min/1.73m2 for >3 months is consistent with chronic kidney disease. Refer to KDOQI guidelines for clinical interpretation. In patients with unstable renal function, e.g. those with acute kidney injury, the eGFR may not accurately reflect actual GFR. eGFR- Date Value Ref Range Status 06/25/2017 >60 Final P.O.C.T. RESULTS: POC done: Yes, See Lab Tab June 26, 2017 RADIOLOGIST NOTIFIED?: No ALLERGIES: Reviewed and unchanged CONTRAST ALLERGY: NO. PERIPHERAL IV ACCESS: Ambulatory: IV type: A peripheral IV was started in the Left antecubital site with a Angio cath: 22 gauge., Site assessment: Clean,Dry and Intact, Site disposition Discontinued RADIOLOGY DEPARTMENT: CT; Exam(s) Completed: Chest Abdomen Pelvis and Neck SIGNED BY: Joceline Thrasher June 26, 2017 3:[address] ABD/PEL W IVCON Observed: 06/26/2017 Status: F Source: [place] 3:24 PM [facility] REPOSITORY * * *Final Report* * * DATE OF EXAM: Jun 26 2017 3:24PM [facility] 0530 - CT ABD/PEL W IVCON / PROCEDURE REASON: Malignant neoplasm of unspecified part of unspecified bronchus or lung * * * * Physician Interpretation * * * * EXAMINATION: CT ABDOMEN AND PELVIS WITH IV CONTRAST CLINICAL HISTORY: 66-year-old woman with a history of stage IV lung adenocarcinoma and thyroid cancer diagnosed in 2017 TECHNIQUE: CT of the abdomen and pelvis was performed using standard technique, scanning from just above the dome of the diaphragm to the symphysis pubis. MQ: CTAP_3 Contrast: IV: 133 ml of Omnipaque 300 Oral: 50 ml of 50ML Omnipaque [address] Radiation dose: Integrated Dose-length product (DLP) for this visit = 612 mGy*cm. CT Dose Reduction Employed: Automated exposure control (AEC) COMPARISON: 03/18/2017 RESULT: Liver: Unchanged subcentimeter low-attenuation lesion in segment 5 (series 8, image 44). No new focal hepatic lesions. Biliary: Mild intra and extrahepatic biliary ductal dilation is unchanged compared to the prior exam, and likely related to prior cholecystectomy. Spleen: No mass. No splenomegaly. Pancreas: No mass or duct dilation. Adrenals: No mass. Kidneys: 4 cm right lower pole cyst. Few other subcentimeter low-attenuation lesions, which are too small to characterize, but similar to the prior exam. No hydronephrosis or nephrolithiasis. GI tract: No dilation or wall thickening. Normal appendix. Lymph nodes: Few subcentimeter upper abdominal lymph nodes are unchanged compared to the prior exam; for example: - A gastrohepatic ligament lymph node measures 1.7 x 0.7 cm (series 8, image 28), previously 1.8 x 0.9 cm - A portacaval lymph node measures 1.8 x 0.9 cm (series 8, image 30), previously 1.7 x 0.8 cm. No new or enlarging lymphadenopathy in the abdomen or pelvis. Mesentery/Peritoneum: No ascites or mass. Retroperitoneum: No mass. Vasculature: The celiac axis and SMA are patent. The portal vein and branches, splenic vein, SMV, and hepatic veins are patent. Arterial atherosclerotic disease without aneurysm. Pelvis: No mass, ascites or fluid collection. A 3.2 cm left adnexal cystic lesion is similar to the prior exam. Bones/Soft Tissues: No suspicious osseous lesions. Lower thorax: A chest CT performed will be reported separately. IMPRESSION: Stable exam compared to 03/18/2017, without new metastatic disease in the abdomen or pelvis. Circuit Breaker Assembler: LIAM Transcribe Date/Time: Jun 26 2017 3:37P Dictated by : SOULEYMANE FISHER MD This examination was interpreted and the report reviewed and electronically signed by: SOULEYMANE FISHER MD on Jun 26 2017 3:45PM EST [id number] CT NECK SOFT TISSUE Observed: 06/26/2017 Status: F Source: [place] W IVCON 3:24 PM [facility] REPOSITORY * * *Final Report* * * DATE OF EXAM: Jun 26 2017 3:24PM [facility] 0013 - CT NECK SOFT TISSUE W IVCON / PROCEDURE REASON: Malignant neoplasm of thyroid gland * * * * Physician Interpretation * * * * CONTRAST-ENHANCED CT NECK 06/26/2017 INDICATION: 66-year-old female with Malignant neoplasm of thyroid gland EXAMINATION: CT NECK SOFT TISSUE W IVCON IV: 133 ml of Omnipaque 300 CT Radiation dose: Integrated Dose-length product (DLP) for this visit = 612 mGy*cm. CT Dose Reduction Employed: Automated exposure control (AEC) COMPARISON: CT neck 03/18/2017 showed prominent cervical lymph nodes and prominent lingual tonsils and thyroid metastatic disease dorsal lateral to the trachea on the right at the mediastinal verge RESULT: Vasculature: Calcification of the aorta and branch vessels and carotid bifurcations and parasellar and supraclinoid internal carotid arteries. Demonstrated brain:Unremarkable Demonstrated orbits:Unremarkable Nasopharynx:Unremarkable Oropharynx: Slight interval progression of prominence of the lingual tonsils/increased soft tissue at the tongue base near the midline measuring up to 8 mm thick previously 5 mm thick. Oral cavity:Beam hardening artifact partially obscures the oral cavity and oropharynx. Unremarkable. Hypopharynx:Unremarkable Larynx:Unremarkable Thyroid gland: Interval increase in size of thyroid lesions. For example at the right lobe there is a septated mass that measured 1.1 x 1.3 cm previously currently measures 1.9 x 1.4 cm. There is a nodule inferior posterior to the right thyroid lobe and the right paratracheal region the contains calcification and hypodense/necrotic regions that measures 2.1 x 1.4 cm previously the same. A left thyroid lobe lesion measures 1.1 cm similar to the prior exam. Submandibular glands:Unremarkable Parotid glands:Unremarkable Cervical lymph nodes: Small but Prominent cervical lymph nodes at level 2 and 3 and 4 and 5 and 7 appear similar to the prior exam. Preepiglottic fat:Unremarkable Pterygopalatine fossa:Unremarkable Parapharyngeal fat:Intact Lung apices:Clear Airway:Patent Spine: Osteopenia intermixed with sclerotic likely degenerative changes within the spine. Mandible and maxilla: Severe bilateral temporomandibular joint space disease with remodeling of the condyles. Paranasal sinuses:Clear Mastoid air cells and middle ear cavity:Well aerated and clear Other osseous structures:Intact IMPRESSION: Interval increase in size of thyroid masses with stable large likely metastatic nodule in the right paratracheal region. Interval increase in prominence of the lingual tonsils/soft tissue at the tongue base extending into the vallecula. Direct visualization may be helpful if clinically indicated. Circuit Breaker Assembler: PSCB Transcribe Date/Time: Jun 26 2017 3:55P Dictated by : FLORES ARNOLD MD This examination was interpreted and the report reviewed and electronically signed by: FLORES ARNOLD MD on Jun 26 2017 6:21PM EST [id number] CT CHEST W IVCON Observed: 06/26/2017 Status: F Source: [place] 3:24 PM [facility] REPOSITORY * * *Final Report* * * DATE OF EXAM: Jun 26 2017 3:24PM [facility] 0539 - CT CHEST W IVCON / PROCEDURE REASON: Malignant neoplasm of unspecified part of unspecified bronchus or lung * * * * Physician Interpretation * * * * EXAMINATION: CHEST CT WITH CONTRAST Indication: Malignant neoplasm of unspecified part of unspecified bronchus or lung Technique: Spiral CT acquisition of the chest from the thoracic inlet to the upper abdomen following IV contrast. MQ: CTCW_4 Contrast: 133 mL Omnipaque [address] Dose-Length Product: 612 mGy*cm CT Dose Reduction Employed: Automated exposure control (AEC) Comparison: CT chest, 03/18/2017 RESULT: Limitations: None. Lines, tubes, and devices: None. Lung parenchyma and pleura: Trachea and major bronchi are patent. Mild centrilobular emphysema. Continued decrease in size of dominant middle lobe nodule which previously measured 6 mm and now measures 5 mm (image 110). The nodule was 16 x 17 mm on a remote PET CT dated 09/28/2016. Additional paracardiac nodule/nodules in the middle lobe which measure 4 x 7 mm are unchanged (image 105). Stable 3 mm nodule in the right upper lobe (image 76), and a few other punctate nodules scattered elsewhere in both lungs. Interval development of a smoothly marginated pleural-based hilar opacity along the posterior left chest wall which measures approximately 5 x 8 mm (image 130). No pleural effusion or abnormal pleural thickening. Thoracic inlet, heart, and mediastinum: Stable hypodense nodule in the right thyroid lobe with a maximum diameter of approximately 13 x 13 mm (image 17). There is an additional 15 x 20 mm exophytic nodule arising from the right thyroid lobe which extends into the upper mediastinum along the posterior right paratracheal groove (image 29). This nodule is heterogenous in attenuation, with predominantly hypodense central portion, mild peripheral enhancement and some calcifications. A subcentimeter hypodense nodule is noted in the left thyroid lobe (image 16). Patient has biopsy-proven thyroid metastases from lung primary. There is a stable subcentimeter in short axis left supraclavicular lymph node (image 15). Please see separately dictated report of CT neck for a comprehensive evaluation of the lower cervical compartments. No axillary, mediastinal or hilar lymphadenopathy. Multiple enlarged and confluent mediastinal and hilar nodes noted on remote PET CT from 09/28/2016 have continued to decrease in size over subsequent scans. Some of the subcentimeter in short axis intrathoracic lymph nodes noted on the immediate prior scan are either stable or further shrunken. For example, prevascular, upper right paratracheal and lower right paratracheal lymph nodes (images 50 and 66), measure 6-7 mm in short axis on the current scan, previously up to 8 mm in short axis on the immediate prior scan and significantly larger on remote PET CT from 09/28/2016. Few prominent right anterior cardiophrenic recess and middle diaphragmatic station lymph nodes are unchanged; the largest of these measures approximately 8 mm in short axis (images 124-125). There is a small sliding type of hiatal hernia. Heart size is normal without any specific cardiac chamber enlargement. Thoracic aorta and the main pulmonary artery are normal in caliber. There are no significant coronary artery calcifications, although study is not tailored for evaluation of the coronary arteries. No pericardial effusion is noted. Bones and soft tissues: Multilevel degenerative changes again noted in the thoracic spine. No destructive osseous lesions. Stable 4-5 mm right lateral chest wall subcutaneous nodule (image 109). Chest wall soft tissues are otherwise unremarkable. Upper abdomen: Please see separately dictated report of CT abdomen and pelvis, performed the same day, for a detailed evaluation of the abdominal contents. IMPRESSION: Continued decrease in size of 5 mm middle lobe lung nodule, which measured 6 mm on 03/18/2017 and 16 x 17 mm on PET/CT from 09/28/2016. This nodule possibly represents treated malignancy. Interval development of a pleural-based, smoothly marginated 5 x 8 mm nodular opacity along the left posterior chest wall, of indeterminate etiology. Few other smaller nonspecific lung nodules are unchanged. Suggest continued follow-up. Multiple enlarged mediastinal and hilar nodes on remote PET CT from 09/28/2016 have since progressively shrunken in size; no new or progressive thoracic lymphadenopathy is identified. No significant change in size and morphology of multiple thyroid nodules. Patient reportedly has biopsy-proven thyroid metastases from lung primary. Please review separately dictated report of CT neck for a comprehensive evaluation of the lower cervical compartment. Circuit Breaker Assembler: [facility] Transcribe Date/Time: Jun 26 2017 10:14P Dictated by : PAPO MONDRAGON MD This examination was interpreted and the report reviewed and electronically signed by: PAPO MONDRAGON MD on Jun 26 2017 10:36PM EST [id number] COMP METABOLIC PANEL Collected: 06/25/2017 Status: F Source: [place] 9:36 AM [facility] REPOSITORY TYPE CODE TESTS RESULT OUT OF REFERENCE UNITS RANGE LAB TP 6.3-8.0 g/dL Protein, Total 8.0 LAB ALB 3.9-4.9 g/dL Low Albumin 3.8 LAB CA 8.5-10.2 mg/dL Calcium, Total 9.3 LAB TBIL 0.2-1.3 mg/dL Bilirubin, Total 0.7 LAB ALKP 32-117 U/L Alkaline Phosphatase 93 LAB AST 13-35 U/L AST 29 LAB GLU 74-99 mg/dL Glucose 94 Result Comment: The [place] [employer] (ADA) provides guidance for cutoff values for fasting glucose and random glucose. The ADA defines fasting as no caloric intake for at least 8 hours. Fas ting plasma glucose results between 100 to 125 mg/dL indicate increased risk for diabetes (prediabetes). Fasting plasma glucose results greater than or equal to 126 mg/dL meet the criteria for diagnosis of diabetes. In the absence of unequivocal hyperglycemia, results should be confirmed by repeat testing. In a patient with classic symptoms of hyperglycemia or hyperglycemic crisis, random plasma glucose results greater than or equal to 200 mg/dL meet the criteria for diagnosis of diabetes. Reference: Standards of Medical Care in Diabetes 2016, [place] [employer]. Diabetes Care. 2016.39(Suppl 1). LAB BUN 7-21 mg/dL BUN 17 LAB CRET 0.58-0.96 mg/dL Creatinine High 1.02 LAB NA 136-144 mmol/L Sodium 139 LAB K 3.7-5.1 mmol/L Potassium 4.5 LAB CL 97-105 mmol/L Chloride 101 LAB CO2 22-30 mmol/L CO2 25 LAB AGAP 9-18 mmol/L Anion Gap 13 LAB ALT 7-38 U/L ALT 25 LAB GFRAA eGFR- Amer. >60 LAB GFRNAA . eGFR-All Other Races 54 Result Comment: eGFR (Estimated GFR) Units of measure: mL/min/1.73 meters squared eGFR is derived from the reexpressed MDRD Study equation using the following parameters: serum creatinine, age, gender and race. The creatinine assay has been calibrated to be traceable to IDMS. An eGFR <60 mL/min/1.73m2 for >3 months is consistent with chronic kidney disease. Refer to KDOQI guidelines for clinical interpretation. In patients with unstable renal function, e.g. those with acute kidney injury, the eGFR may not accurately reflect actual GFR. Performed By: #### CMP, CBCDIF #### [facility] [address] [place], [place] [address] CBC AND DIFFERENTIAL Collected: 06/25/2017 Status: F Source: [place] 9:36 AM [facility] REPOSITORY TYPE CODE TESTS RESULT OUT OF REFERENCE UNITS RANGE LAB WBC 3.70-11.00 k/uL WBC 8.65 LAB RBC 3.90-5.20 m/uL Low RBC 3.84 LAB HGB 11.5-15.5 g/dL Low Hemoglobin 11.3 LAB HCT 36.0-46.0 % Low Hematocrit 35.3 LAB MCV 80.0-100.0 fL MCV 91.9 LAB MCH 26.0-34.0 pG MCH 29.4 LAB MCHC 30.5-36.0 g/dL MCHC 32.0 LAB RDWCV 11.5-15.0 % RDW-CV High 18.0 LAB PLTCT 150-400 k/uL Platelet High Count 404 LAB MPV 9.0-12.7 fL MPV 11.4 LAB ANEUT % Neut% 55.7 LAB AANEUT 1.45-7.50 k/uL Abs Neut 4.82 LAB ALYMP % Lymph% 34.8 LAB AALYMP 1.00-4.00 k/uL Abs Lymph 3.01 LAB AMONO % [place]% 8.2 LAB AAMONO <0.87 k/uL Abs [place] 0.71 LAB AEOS % Eosin% 0.0 LAB AAEOS <0.46 k/uL Abs Eosin <0.03 LAB ABASO % Baso% 1.3 LAB AABASO <0.11 k/uL Abs Baso High 0.11 LAB AUNRBC 0 /100 WBC NRBCs 0.0 LAB ABNRBC <0.01 k/uL Absolute nRBC <0.01 LAB DTYP DTYPE Auto Diff Performed By: #### CMP, CBCDIF #### [facility] [address] [place], [place] [address] CNPN Observed: 05/27/2017 Status: COMPLETED Source: [place] 12:00 [facility] REPOSITORY Telephone ([id number]) LISETTE CRISOSTOMO ([id number]) 1950 F Date Time Provider Department 05/27/17 BUSHRA CHIANG (RN) [id number] During your visit today, we recorded the following information about you: Bushra Chiang RN, RN 07/10/2017 4:51 PM Addendum 1426 Returned call to patient who reports fluid retention,swelling in mid section and lower extremities. Pt states she was 137# when last seen in December and is now 153#. Per Dr. Crooks instructed to reduce Alectinib to 2 capsules twice daily. Pt expressed understanding but was hesitant to reduce the Aletinib fearing a lower dose would be ineffective. Currently, the swelling is limiting her mobility. Informed patient we will get a vascular consult to address the swelling. Pt agreed with plan and verbalized understanding. Bushra Chiang RN 05/28/17 Coordinated appointment with vascular medicine when scheduled to return on 06/27/17. Bushra Chiang RN Allergies As of Date: 05/27/2017 Noted Allergy Reaction CODEINE 04/16/2007 5 - Intolerance PENICILLINS 04/16/2007 5 - Intolerance Date Reviewed: 04/19/2017 Reviewed by: Juan Alves Ma - Fully Assessed Reason for Visit: Care Coordination [3491] Edema [39] Prescriptions as of 05/27/2017 Sig: ALECTINIB 150 MG CAPSULE Take 3 capsules by mouth twic* Patient taking differently: Take 300 mg by mouth twice da* PROCHLORPERAZINE MALEATE 10 M* Take 1 tablet by mouth every * LORAZEPAM 1 MG TABLET take 1-2 tabs by mouth 30 min* METFORMIN ER 500 MG TABLET,EX* Take 1,500 mg by mouth daily * BYSTOLIC 5 MG TABLET Take 5 mg by mouth once daily* SIMVASTATIN 10 MG TABLET Take 10 mg by mouth daily at * OMEPRAZOLE 20 MG CAPSULE,GAGAN* Take 20 mg by mouth once scarlet* FEXOFENADINE 180 MG TABLET Take 180 mg by mouth once melo* Problem List As Of Date 05/27/2017 Noted Resolved Metastatic carcinoma (HCC) [C79.9] INVALID FOR*10/11/2016 Primary lung adenocarcinoma (HCC) [C34.90] INVALID FOR* Thyroid cancer (HCC) [C73] INVALID FOR* Encounter Status:Closed by BUSHRA CHIANG on 07/02/17 OBSOLETE Observed: 04/26/2017 Status: COMPLETED Source: [place] 12:00 AM [facility] REPOSITORY Refill (HEMCA3) LISETTE CRISOSTOMO ([id number]) 1950 F Date Time Provider Department 04/26/17 ARVIND STONE HEMCA3 During your visit today, we recorded the following information about you: LARA JOAQUIN, PHARMACIST 04/26/2017 2:50 PM Signed Pt will be due for a refill of alectinib soon. If therapy is being continued, please sign this order request to send refill via eRx to [facility]. Thanks! Lara Joaquin, PharmD, BCPS Clinical Pharmacist, Oncology [facility] P: , F: Allergies As of Date: 04/26/2017 Noted Allergy Reaction CODEINE 04/16/2007 5 - Intolerance PENICILLINS 04/16/2007 5 - Intolerance Date Reviewed: 04/19/2017 Reviewed by: Juan Alves Ma - Fully Assessed Reason for Visit: Refill Request [94] Cmt: alectinib Reason For Visit History Recorded Primary Visit Diagnosis:Primary adenocarcinoma of lung, unspecified laterality (HCC) [C34.90] Other Visit Diagnosis:Primary lung adenocarcinoma, unspecified laterality (HCC) [C34.90] Order(s):alectinib (ALECENSA) 150 mg capTake 3 capsules by mouth twice daily. Take with food. Swallow capsule wholeDisp: 180 capsuleRfl: 5 Prescriptions as of 04/26/2017 Sig: ALECTINIB 150 MG CAPSULE Take 3 capsules by mouth twic* PROCHLORPERAZINE MALEATE 10 M* Take 1 tablet by mouth every * LORAZEPAM 1 MG TABLET take 1-2 tabs by mouth 30 min* METFORMIN ER 500 MG TABLET,EX* 1,500 mg. BYSTOLIC 5 MG TABLET SIMVASTATIN 10 MG TABLET Take 10 mg by mouth daily at * OMEPRAZOLE 20 MG CAPSULE,GAGAN* FEXOFENADINE 180 MG TABLET Take 180 mg by mouth once melo* Problem List As Of Date 04/26/2017 Noted Resolved Metastatic carcinoma (HCC) [C79.9] INVALID FOR*10/11/2016 Primary lung adenocarcinoma (HCC) [C34.90] INVALID FOR* Thyroid cancer (HCC) [C73] INVALID FOR* Prescriptions ordered this encounter Disp Refills Start End ALECTINIB 150 MG CAPSULE 180 * 5 04/26/2017 Class: [facility] Route: ORAL Sig: Take 3 capsules by mouth twice daily. Take with food. Swallow capsule whole Medications Discontinued During This Encounter alectinib (ALECENSA) 150 mg cap 180 * 0 03/21/2017 04/26/2017 Class: [facility] Route: ORAL Sig: Take 3 capsules by mouth twice daily. Take with food. Swallow capsule whole Disc: Reason for discontinue is not on file. Encounter Status:Closed by ZAINA CROOKS MD on 04/26/17 PROGRESS Observed: 04/22/2017 Status: COMPLETED Source: [place]OW[place] 7:35 AM [facility] REPOSITORY HNO ID: [id number] Author: Olga Roman Service: (none) Author Type: Physician Type: Progress Notes Filed: 04/22/2017 9:53 AM Note Text: History ID: Patient with metastatic lung adenocarcinoma [id number]?(cervical and abdominal adenopathy). Presently undergoing napaimute doublet chemotherapy or molecular therapy. Patient has metastases to abdomen and neck - initially had aspiration of thyroid gland which was positive as well. HPI: Denies any issues related to her neck. Over last series of images, there was noted to be an increase in the size of the thyroid metastasis (compared to imaging in September): Right level 2A lymph node shows mild interval progression from 11 x 6 mm to 11 x 8 mm. ?Additional subcentimeter lymph nodes at saba stations 2 a to be are stable. Present prominent right level 3 centrally necrotic lymph node has decreased in size and now appears homogeneous measuring 8 x 7 mm, previously 22 x 17 mm. Previously seen a large heterogeneous right level 3 lymph node has entirely resolved. Previously enlarged right level 4 heterogeneous lymph node dorsal to the right internal jugular vein and ventral to the anterior scalene muscle shows near complete resolution. Heterogeneous soft tissue mass with areas of low attenuation and calcification dorsal lateral to the trachea on the right measuring 23 x 16 mm minimally progressed from 20 x 16 mm. Cytology from outside hospital was reviewed and was consistent with malignant cells - metastatic carcinoma consistent with lung primary. She denies any new symptoms regarding her neck. In particular, she denies any dysphagia, odynophagia, otalgia, hemoptysis or otalgia. She also denies any hoarseness. PHYSICAL EXAM (detailed): Constitutional: * There were no vitals taken for this visit. * General appearance: Well developed, well nourished female without obvious deformities. Patient has a normal body habitus and is well groomed. * Communication: The patient speaks with a normal voice without hoarseness or breaks in speech. Head and Face: * Overall appearance: No evident asymetries, obvious scars, lesions or masses. Palpation of face did not reveal any sinus tenderness. * Parotid and submandibular glands: No masses, tenderness or swelling. * Facial strength: House-Brackmann 1/6 bilaterally. Eyes: * Extraocular movements are intact bilaterally and primary gaze alignment is normal. * No evidence of ectropion present. Ears, Nose, Mouth and Throat: * External ears and nose: Normal in appearance, without scars, lesions, or masses. * Ears: Otoscopic examination demonstrates external auditory canals are normal bilaterally. The tympanic membranes are intact and mobile to pneumotoscopy bilaterally. * Nasal exam: Nasal mucosa is pink and the septum is midline, visualized turbinates are normal in appearance. * Mastication: The teeth appear healthy, and the lips and gums are without lesions. * Oral cavity and oropharynx: The oral mucosa, hard and soft palates, tongue, tonsil area, and posterior pharyngeal mucosa are without lesions or notable assymetries. Moist mucus membranes present. * Larynx: Base of tongue, valleculae, epiglottis and false vocal folds are normal in appearance per mirror exam. Neck: * Neck: The neck appears symmetric without scars, and on palpation is without masses, lymphadenopathy or crepitus. Trachea is midline. * Thyroid: There are no masses, thyromegaly, thyroid nodules or tenderness on palpation. Neurologic: * Mental status: Patient is alert and oriented to person, place and time Mood and affect are appropriate PROCEDURE NOTE: PROCEDURE: Flexible laryngoscopy PREOPERATIVE DIAGNOSIS: history of metastatic thyroid cancer POSTOPERATIVE DIAGNOSIS: vocal folds are mobile and symmetric INDICATIONS: Evaluate upper aerodigestive tract ANESTHESIA: Phenylephrine and lidocaine PROCEDURE: Vasoconstriction was applied with spray to the both side(s) of the nose. After waiting an appropriate period of time for vasoconstriction to become effective, a flexible endoscope was passed through the right side(s) of the nose. The scope was advanced to visualize the nasopharynx, oropharynx, hypopharynx and larynx. FINDINGS: Examination of the nasal cavity demonstrates pink mucosa without any polyps or masses. Nasopharynx was clear with patent eustachian tube orifices bilaterally. Oropharynx demonstrated a normal base of tongue and posterior pharynx. Larynx demonstrated normal supraglottis and true vocal folds were mobile and symmetric bilaterally. Hypopharynx was clear. Patient tolerated the procedure well. Olga Roman MD Medical Decision Making: Metastatic thyroid cancer Minimal increase in size ~ 3 mm in known metastatic lung adenocarcinoma Will observe for now, if she becomes symptomatic, then will consider thyroid lobectomy Will repeat imaging with next series of CT scans Olga Roman MD CNOV Observed: 04/19/2017 Status: COMPLETED Source: [place]OW[place] 9:30 AM [facility] REPOSITORY Office Visit (OTOLMN) LISETTE CRISOSTOMO ([id number]) 1950 F Date Time Provider Department 04/19/17 9:30 AM OLGA ROMAN OTOLMN During your visit today, we recorded the following information about you: Olga Roman MD 04/22/2017 9:53 AM Signed History ID: Patient with metastatic lung adenocarcinoma [id number]?(cervical and abdominal adenopathy). Presently undergoing napaimute doublet chemotherapy or molecular therapy. Patient has metastases to abdomen and neck - initially had aspiration of thyroid gland which was positive as well. HPI: Denies any issues related to her neck. Over last series of images, there was noted to be an increase in the size of the thyroid metastasis (compared to imaging in September): Right level 2A lymph node shows mild interval progression from 11 x 6 mm to 11 x 8 mm. ?Additional subcentimeter lymph nodes at saba stations 2 a to be are stable. Present prominent right level 3 centrally necrotic lymph node has decreased in size and now appears homogeneous measuring 8 x 7 mm, previously 22 x 17 mm. Previously seen a large heterogeneous right level 3 lymph node has entirely resolved. Previously enlarged right level 4 heterogeneous lymph node dorsal to the right internal jugular vein and ventral to the anterior scalene muscle shows near complete resolution. Heterogeneous soft tissue mass with areas of low attenuation and calcification dorsal lateral to the trachea on the right measuring 23 x 16 mm minimally progressed from 20 x 16 mm. Cytology from outside hospital was reviewed and was consistent with malignant cells - metastatic carcinoma consistent with lung primary. She denies any new symptoms regarding her neck. In particular, she denies any dysphagia, odynophagia, otalgia, hemoptysis or otalgia. She also denies any hoarseness. PHYSICAL EXAM (detailed): Constitutional: * There were no vitals taken for this visit. * General appearance: Well developed, well nourished female without obvious deformities. Patient has a normal body habitus and is well groomed. * Communication: The patient speaks with a normal voice without hoarseness or breaks in speech. Head and Face: * Overall appearance: No evident asymetries, obvious scars, lesions or masses. Palpation of face did not reveal any sinus tenderness. * Parotid and submandibular glands: No masses, tenderness or swelling. * Facial strength: House-Brackmann 1/6 bilaterally. Eyes: * Extraocular movements are intact bilaterally and primary gaze alignment is normal. * No evidence of ectropion present. Ears, Nose, Mouth and Throat: * External ears and nose: Normal in appearance, without scars, lesions, or masses. * Ears: Otoscopic examination demonstrates external auditory canals are normal bilaterally. The tympanic membranes are intact and mobile to pneumotoscopy bilaterally. * Nasal exam: Nasal mucosa is pink and the septum is midline, visualized turbinates are normal in appearance. * Mastication: The teeth appear healthy, and the lips and gums are without lesions. * Oral cavity and oropharynx: The oral mucosa, hard and soft palates, tongue, tonsil area, and posterior pharyngeal mucosa are without lesions or notable assymetries. Moist mucus membranes present. * Larynx: Base of tongue, valleculae, epiglottis and false vocal folds are normal in appearance per mirror exam. Neck: * Neck: The neck appears symmetric without scars, and on palpation is without masses, lymphadenopathy or crepitus. Trachea is midline. * Thyroid: There are no masses, thyromegaly, thyroid nodules or tenderness on palpation. Neurologic: * Mental status: Patient is alert and oriented to person, place and time Mood and affect are appropriate PROCEDURE NOTE: PROCEDURE: Flexible laryngoscopy PREOPERATIVE DIAGNOSIS: history of metastatic thyroid cancer POSTOPERATIVE DIAGNOSIS: vocal folds are mobile and symmetric INDICATIONS: Evaluate upper aerodigestive tract ANESTHESIA: Phenylephrine and lidocaine PROCEDURE: Vasoconstriction was applied with spray to the both side(s) of the nose. After waiting an appropriate period of time for vasoconstriction to become effective, a flexible endoscope was passed through the right side(s) of the nose. The scope was advanced to visualize the nasopharynx, oropharynx, hypopharynx and larynx. FINDINGS: Examination of the nasal cavity demonstrates pink mucosa without any polyps or masses. Nasopharynx was clear with patent eustachian tube orifices bilaterally. Oropharynx demonstrated a normal base of tongue and posterior pharynx. Larynx demonstrated normal supraglottis and true vocal folds were mobile and symmetric bilaterally. Hypopharynx was clear. Patient tolerated the procedure well. Olga Roman MD Medical Decision Making: Metastatic thyroid cancer Minimal increase in size ~ 3 mm in known metastatic lung adenocarcinoma Will observe for now, if she becomes symptomatic, then will consider thyroid lobectomy Will repeat imaging with next series of CT scans Olga Roman MD Referring Provider: SELF [200] Allergies As of Date: 04/19/2017 Noted Allergy Reaction CODEINE 04/16/2007 5 - Intolerance PENICILLINS 04/16/2007 5 - Intolerance Date Reviewed: 04/19/2017 Reviewed by: Juan Alves Ma - Fully Assessed Primary Visit Diagnosis:Thyroid cancer (HCC) [C73] Other Visit Diagnosis:Primary adenocarcinoma of lung, unspecified laterality (HCC) [C34.90] Prescriptions as of 04/19/2017 Sig: IV CONTRAST (RADIOLOGY PROCED* Inject 1 Each intravenously o* ALECTINIB 150 MG CAPSULE Take 3 capsules by mouth twic* PROCHLORPERAZINE MALEATE 10 M* Take 1 tablet by mouth every * LORAZEPAM 1 MG TABLET take 1-2 tabs by mouth 30 min* METFORMIN ER 500 MG TABLET,EX* 1,500 mg. BYSTOLIC 5 MG TABLET SIMVASTATIN 10 MG TABLET Take 10 mg by mouth daily at * OMEPRAZOLE 20 MG CAPSULE,GAGAN* FEXOFENADINE 180 MG TABLET Take 180 mg by mouth once melo* Problem List As Of Date 04/19/2017 Noted Resolved Metastatic carcinoma (HCC) [C79.9] INVALID FOR*10/11/2016 Primary lung adenocarcinoma (HCC) [C34.90] INVALID FOR* Thyroid cancer (HCC) [C73] INVALID FOR* Follow-up and Disposition History Recorded Encounter Status:Closed by OLGA ROMAN MD on 04/22/17 CNOV Observed: 04/19/2017 Status: COMPLETED Source: [place]OW[place] 9:30 AM [facility] REPOSITORY Office Visit (OTOLMN) LISETTE CRISOSTOMO ([id number]) 1950 F Date Time Provider Department 04/19/17 9:30 AM OLGA ROMAN OTOLLEROY During your visit today, we recorded the following information about you: Juan Alves Ma 04/19/2017 9:53 AM Signed Tobacco Use: .5 packs/day, for 35 years. Quit 10/19/2016. Types: Cigarettes Was smoking cessation packet given? Yes - Patient received smoking cessation packet at previous [facility] office visit. Was a referral initiated?N/A Patient is a non-smoker Referring Provider: SELF [200] Allergies As of Date: 04/19/2017 Noted Allergy Reaction CODEINE 04/16/2007 5 - Intolerance PENICILLINS 04/16/2007 5 - Intolerance Date Reviewed: 04/19/2017 Reviewed by: Juan Alves Ma - Fully Assessed Reason for Visit: Follow Up [171] Cmt: Referred By Dr. Crooks. Reason For Visit History Recorded Primary Visit Diagnosis:Thyroid cancer (HCC) [C73] Order(s):CT NECK SOFT TISSUE W IVCON [[id number]] Order #: [id number] FUTURE [] iv contrast (radiology procedure)Inject 1 Each intravenously one time only for [address] Neck W IVCON No IV access, insert saline lock prior to the sedation, infusion, injection for imaging exam. Discontinue saline lock post exam. If Pt. has a central line or IVAD, may access for administration according to line specific nursing protocol. Once exam is complete flush line and de-access according to line specific nursing protocol in the CT contrast administration guidelines link.Disp: 1 EachRfl: 0 Prescriptions as of 04/19/2017 Sig: ALECTINIB 150 MG CAPSULE Take 3 capsules by mouth twic* PROCHLORPERAZINE MALEATE 10 M* Take 1 tablet by mouth every * LORAZEPAM 1 MG TABLET take 1-2 tabs by mouth 30 min* METFORMIN ER 500 MG TABLET,EX* 1,500 mg. BYSTOLIC 5 MG TABLET SIMVASTATIN 10 MG TABLET Take 10 mg by mouth daily at * OMEPRAZOLE 20 MG CAPSULE,GAGAN* FEXOFENADINE 180 MG TABLET Take 180 mg by mouth once melo* IV CONTRAST (RADIOLOGY PROCED* Inject 1 Each intravenously o* Problem List As Of Date 04/19/2017 Noted Resolved Metastatic carcinoma (HCC) [C79.9] INVALID FOR*10/11/2016 Primary lung adenocarcinoma (HCC) [C34.90] INVALID FOR* Thyroid cancer (HCC) [C73] INVALID FOR* Visit Notes: >> Juan Alves Ma SatApr 19, 2017 9:52 AM Status: Signed Tobacco Use: .5 packs/day, for 35 years. Quit 10/19/2016. Types: Cigarettes Was smoking cessation packet given? Yes - Patient received smoking cessation packet at previous [facility] office visit. Was a referral initiated?N/A Patient is a non-smoker Prescriptions ordered this encounter Disp Refills Start End IV CONTRAST (RADIOLOGY PROCEDURE) 1 Ea* 0 04/19/2017 04/19/2017 Class: In Office Route: INTRAVENOUS Sig: Inject 1 Each intravenously one time only for [address] Neck W IVCON No IV access, insert saline lock prior to the sedation, infusion, injection for imaging exam. Discontinue saline lock post exam. If Pt. has a central line or IVAD, may access for administration according to line specific nursing protocol. Once exam is complete flush line and de-access according to line specific nursing protocol in the CT contrast administration guidelines link. Disposition: Return in about 2 months (around 06/17/2017). Follow-up and Disposition History Recorded Encounter Status:Closed by OLGA ROMAN MD on 04/22/17 ALLERGIES ALLERGIES DATE TYPE / NAME / CODE REACTION SEVERITY SOURCE CODE 03/03/2018 Drug codeine/[id number] HYPER [place] Allergy/41 0(RXNORM) Community 3389414( Hospital OMED CT) Repository 03/03/2018 Drug fenofibrate/F0060 MUSCLE PAIN [place] Allergy/41 36603(RXNORM) Community 7780059([facility] CT) Repository 03/03/2018 Drug choline Pain in joints [place] Allergy/41 fenofibrate/F0060 [facility] [id number]( 98804(RXNORM) Hospital [facility] CT) Repository 04/16/2007 DRUG CODEINE INTOLERANCE [facility] INGREDI/41 [address] [place] 1071331( Repository OMED CT) 04/16/2007 Drug PENICILLINS INTOLERANCE [facility] Class/4195 [address] [place] [address]([facility] ED CT[facility] ENCOUNTERS ENCOUNTERS ADMIT/DISCHARGE ACCOUNT ADMITTING ENCOUNTER LOCATION SOURCE NUMBER CLASS 04/01/2018 [id number] Ambulatory [facility] ing:PT Repository 03/26/2018/03/26/20 [id number] Ambulatory [address] ing:PT Repository 03/24/2018/03/26/20 [id number] Ambulatory [address] [place] Repository 03/20/2018/03/20/20 [id number] Ambulatory [address] [place] Repository 03/20/2018/03/24/20 [id number] Ambulatory [address] [place] Repository 03/20/2018/03/20/20 [id number] Ambulatory [address] [place] Repository 03/03/2018/03/03/20 [id number] Emergency [address] ing:ED Repository 12/24/2017/12/26/19 [id number] Ambulatory [address] [place] Repository 12/24/2017 [id number] Ambulatory [facility] Other [place] Repository 12/23/2017/12/24/19 [id number] [facility] [address] [place] Repository 12/23/2017/12/27/19 [id number] Ambulatory [address] [place] Repository 12/23/2017/12/24/19 [id number] Ambulatory [address] Repository 12/06/2017 [id number] Ambulatory [facility] ing:OPBI Repository 10/31/2017 [id number] [facility] ing:LAB.FUTUR Repository E 09/26/2017/09/27/19 [id number] Ambulatory [address] [place] Repository 09/25/2017/09/26/19 [id number] Ambulatory [address] [place] Repository 09/25/2017/11/20/19 [id number] Ambulatory [address] [place] Repository 09/25/2017/09/26/19 [id number] Ambulatory [address] [place] Repository 07/05/2017/07/06/19 [id number] Ambulatory [address] [place] Repository 06/27/2017/07/04/19 [id number] Ambulatory [address] [place] Repository 06/27/2017/06/29/19 [id number] Ambulatory [address] [place] Repository 06/26/2017/06/29/19 [id number] Ambulatory [address] [place] Repository 06/26/2017/06/27/19 [id number] Ambulatory [address] [place] Repository 06/25/2017/06/26/19 [id number] Ambulatory [address] [place] Repository 04/19/2017/04/19/19 [id number] Ambulatory [address] [place] Repository 04/19/2017/04/22/19 [id number] Ambulatory [address] [place] Repository PAYERS PAYERS ENCOUNTER GUARANTOR PAYER SUBSCRIBER SOURCE 04/01/2018 LISETTE Zamudio Primary Insurance:JOVI [id number] [facility] Number: FREELONDOB: [facility] MEBLMJLQEffective [id number] Date:3373-47-05OR BOX Repository 201[address]Cfj: [phone] PASHUMPHREY Vasquez [phone] (DN) [phone]: 04/01/2018 Secondary NOT GIVENUNK [place] Insurance:SELF PAY Community INSURANCEPolicy Number: Hospital Effective Repository Date:2018-03-26 03/26/2018 LISETTE Zamudio Primary Insurance:JOVI Zamudio [place] [id number] MCRPolicy Number: FREELONDOB: Community [facility] [id number] [place] Date:6046-30-01AL BOX Repository [address]Sop: [phone] HUMPHREY GRAY [phone] (HP) [phone]: 03/26/2018 Secondary NOT GIVENUNK [place] Insurance:SELF PAY Community INSURANCEPolicy Number: Hospital Effective Repository Date:2018-03-03 03/03/2018 LISETTE Zamudio Primary Insurance:JOVI Zamudio [place] [id number] MCRPolicy Number: FREELONDOB: [id number] [place] Date:7012-40-46EU BOX Repository [address]Uia: [phone] [place] [phone]: 03/03/2018 Secondary NOT GIVENUNK [place] Insurance:SELF PAY Community INSURANCEPolicy Number: Hospital Effective Repository Date:2018-03-03 12/06/2017 Lisette Zamudio Primary Insurance:JOVI Zamudio [place] [id number] MCRPolicy Number: FreelonDOB: [facility] [id number] [place] Date:3862-18-51OY BOX Repository [address]Mdq: [phone] [place] [phone]: 12/06/2017 Secondary NOT GIVENUNK [place] Insurance:SELF PAY Community INSURANCEPolicy Number: Hospital Effective Repository Date:2017-11-21 10/31/2017 Lisette Zamudio Primary Insurance:AETOVI [place] [id number] MCRPolicy Number: FreelonDOB: [facility] MEBLMJLQEffective [id number] [place] Date:7496-24-68OI BOX Repository [address]Abd: [phone] HUMPHREY GRAY [phone] (DQ) [phone]: 10/31/2017 Secondary NOT GIVENPATIENCE [place] Insurance:SELF PAY Community INSURANCEPolicy Number: Hospital Effective Repository Date:2017-10-27
== END 2018-03-26 19:00 | disposition home or self-care (01) ==
LOC: PT 10:30
PROVIDERS: Family Provider Internal Medicine; PCP Internal Medicine; Referring Provider Nurse Practitioner; Visit Provider Nurse Practitioner
DX: M54.40 Lumbago with sciatica, unspecified side (principal)
CPT/HCPCS: 97110; 97140; 97162

== ENCOUNTER 2018-04-18 09:30 | Outpatient (RCR) | payer MEDICARE, SELFPAY ==
--- NOTE | 2018-03-28 07:56 | HP.PTEVAL ---
Patient's Visit Information LISETTE CRISOSTOMO is a 67 year old F referred to Physical Therapy by Concha Ford NP with a diagnosis of Neck pain. Date of Evaluation: 03/28/18 Physical Therapist: KALYAN Tolbert - Visit Plan Frequency: 2x /Week Duration: 4 Weeks Plan: Pt has active non small cell lung cancer and metastasized to thyroid. 2X/ week for 3 weeks for upper cervical distraction, MT to c-spine and mid trap and levator regions, postural exercises with HEP. No modalities at this time except mt. - Subjective Findings: Pt reports that she has been having neck pain for about 3 weeks to a month ago. You are having problems with head turns, pain in her shoulders, and occ SANCHES. She has tingling in her hands and not sure why. Pt has non small cell lung cancer that has metastasized to thyroid. Pt is R handed - Pain neck pain Pain Intensity (Out of 10): 4 - Objective c-spine AROM: Rot B 50%, flexion 100%, ext 25%, SB 50% B. UE AROM: WNL B. UE MMT: Shld flex, abd, ER/IR B 4/5. [employer] strength: R 35# and L 39#. Posture: sits with rounded shoulders and fw head. Palpation: Very tender at occiput and paraspinals, upper trap and mid trap and levator scapula area - Goals Goal 1:: I HEP Goal Time Frame: 2-4 Weeks Goal 2:: Increase neck ROM by 25% each plane. (at time of eval: Rot B 50%, flexion 100%, ext 25%, SB 50% B) Goal Time Frame: 2-4 Weeks Goal 3:: Decrease neck pain to less than 1/10 with ADL's Goal Time Frame: 2-4 Weeks Goal 4:: Sit with upright posture during treatment sessions Goal Time Frame: 2-4 Weeks - Rehabilitation Potential Rehabilitation Potential: Good - Anticipated Interventions Patient/Client Instruction: Educate patient on: Condition, Plan of Care For the Purpose of:: To decrease pain, To increase ROM, To improve nutrient delivery to tissue, To improve muscle performance and motor function, To improve ability to perform ADL's, To increase tolerance to activity/condition/position, To improve performance and independence with ADL's, To improve health of tissue, To decrease soft tissue restriction, To increase flexibility/ROM Therapeutic Exercise to Include: Strength training, Postural training, Flexibilty training, Passive ROM, Active ROM, Scapular Strength/Stabilization For the Purpose of:: To decrease pain, To increase ROM, To improve nutrient delivery to tissue, To improve muscle performance and motor function, To improve health of tissue, To decrease soft tissue restriction, To increase flexibility/ROM Manual Therapy Techniques to Include: Mobilization, Passive ROM, Soft tissue mobilization For the Purpose of:: To decrease pain, To increase ROM, To improve nutrient delivery to tissue, To improve health of tissue, To decrease soft tissue restriction, To increase flexibility/ROM Thank you for the opportunity to evaluate your patient. For Medicare and Medicare HMO plans, please review the plan of care and approve it. It will need to be FAXED BACK to us at [phone] for Medicare purposes. For Medicare only, by signing this I certify the plan of care. Please let me know if there are questions or concerns regarding this plan of care. Physician Signature: Date:
--- NOTE | 2018-04-18 12:30 | HP.PTREVAL ---
Concha Ford NP, It has been my pleasure to treat LISETTE CRISOSTOMO over the last 6 visits for Neck pain. Please see the progress note below for an update on the physical therapy plan of care! Subjective: Neck pain is better. a little pain if she touches her L side or is she really turns to the L it is about 2/10. Objective/Function: c-spine AROM: flex 100%, ext 50%, Rot B 75 L and 75% R.... some pain to the L Plan Plan: Pt will call in if she is continuing to feel better and cancel next appointment and then DC. Pt has active non small cell lung cancer and metastasized to thyroid. 2X/ week for 3 weeks for upper cervical distraction, MT to c-spine and mid trap and levator regions, postural exercises with HEP. No modalities at this time except mt. Goals Goal 1:: I HEP Goal Time Frame: 2-4 Weeks Goal Progress: Goal Met Goal 2:: Increase neck ROM by 25% each plane. (at time of eval: Rot B 50%, flexion 100%, ext 25%, SB 50% B) Goal Time Frame: 2-4 Weeks Goal Progress: Goal Met Goal 3:: Decrease neck pain to less than 1/10 with ADL's Goal Time Frame: 2-4 Weeks Goal Progress: Goal Met Goal 4:: Sit with upright posture during treatment sessions Goal Time Frame: 2-4 Weeks Goal Progress: Goal Met Anticipated Interventions Patient/Client Instruction: Educate patient on: Condition, Plan of Care For the Purpose of:: To decrease pain, To increase ROM, To improve nutrient delivery to tissue, To improve muscle performance and motor function, To improve ability to perform ADL's, To increase tolerance to activity/condition/position, To improve performance and independence with ADL's, To improve health of tissue, To decrease soft tissue restriction, To increase flexibility/ROM Therapeutic Exercise to Include: Strength training, Postural training, Flexibilty training, Passive ROM, Active ROM, Scapular Strength/Stabilization For the Purpose of:: To decrease pain, To increase ROM, To improve nutrient delivery to tissue, To improve muscle performance and motor function, To improve health of tissue, To decrease soft tissue restriction, To increase flexibility/ROM Manual Therapy Techniques to Include: Mobilization, Passive ROM, Soft tissue mobilization For the Purpose of:: To decrease pain, To increase ROM, To improve nutrient delivery to tissue, To improve health of tissue, To decrease soft tissue restriction, To increase flexibility/ROM Please do not hesitate to contact me at [phone] by phone or if you have questions or concerns regarding this new plan of care! Sincerely, Iesha Starr, MPT
--- NOTE | 2018-04-25 09:09 | HP.PT.NRP ---
HP - Discharge Summary (1) - Patient Information LISETTE CRISOSOTMO was seen in my office for initial evaluation on 03/28/18. The following Plan of Care was established for this patient: Initial Frequency: 2x /Week Initial Duration: 4 Weeks - Anticipated Interventions Patient/Client Instruction: Educate patient on: Condition, Plan of Care For the Purpose of:: To decrease pain, To increase ROM, To improve nutrient delivery to tissue, To improve muscle performance and motor function, To improve ability to perform ADL's, To increase tolerance to activity/condition/position, To improve performance and independence with ADL's, To improve health of tissue, To decrease soft tissue restriction, To increase flexibility/ROM Therapeutic Exercise to Include: Strength training, Postural training, Flexibilty training, Passive ROM, Active ROM, Scapular Strength/Stabilization For the Purpose of:: To decrease pain, To increase ROM, To improve nutrient delivery to tissue, To improve muscle performance and motor function, To improve health of tissue, To decrease soft tissue restriction, To increase flexibility/ROM Manual Therapy Techniques to Include: Mobilization, Passive ROM, Soft tissue mobilization For the Purpose of:: To decrease pain, To increase ROM, To improve nutrient delivery to tissue, To improve health of tissue, To decrease soft tissue restriction, To increase flexibility/ROM This patient was last seen in our office . Pertinent comments regarding their Physical therapy will appear below: At this point I will be discontinuing this patient from physical therapy. I would be happy to see this patient again in the future if found appropriate by the physician. Thank you! Iesha Starr, KALYAN
== END 2018-04-18 19:00 | disposition home or self-care (01) ==
LOC: PT 09:30
PROVIDERS: Family Provider Internal Medicine; PCP Internal Medicine; Visit Provider Nurse Practitioner
DX: M54.2 Cervicalgia (principal)
CPT/HCPCS: 97110; 97140; 97161; 97530

== ENCOUNTER → 2018-08-18 | Outpatient (CLI) | payer MEDICARE, SELFPAY ==
[2018-08-18 09:25] LABS: Ferritin 13 ng/mL (8-252); Iron 64 ug/dL (50-170); Iron Binding Capacity,Total 394 ug/dL (250-450)
[2018-08-18 09:38] LABS: Vitamin B12 590 pg/mL (211-911)
[2018-08-19 23:11] LABS: PROEL- A/G Ratio 0.8 (0.7-1.7); PROEL- Albumin 3.5 g/dL (2.9-4.4); PROEL- Alpha-1 Globulin 0.3 g/dL (0.0-0.4); PROEL- Alpha-2 Globulin 0.7 g/dL (0.4-1.0); PROEL- Beta Globulin 1.3 g/dL (0.7-1.3); PROEL- Globulin, Total 4.3 g/dL (2.2-3.9); PROEL- TOTAL PROTEIN 7.8 g/dL (6.0-8.5)
[2018-08-20 14:07] LABS: PROELU- Albumin, Urine 28.2 % (.); PROELU- Alpha-1-Globulin,Ur 0.8 % (.); PROELU- Alpha-2-Globulin,Ur 6.6 % (.); PROELU- Gamma Globulin, Ur 32.4 % (.); Total Protein, Ur 15.3 mg/dL (Not Estab.)
== END | disposition home or self-care (01) ==
LOC: LAB 07:32
PROVIDERS: Family Provider Internal Medicine; PCP Internal Medicine; Referring Provider Internal Medicine; Visit Provider Internal Medicine
DX: D64.9 Anemia, unspecified (principal)
CPT/HCPCS: 36415; 82607; 82728; 83540; 83550; 84165; 84166

== ENCOUNTER → 2018-08-25 07:34 | Outpatient (CLI) | payer MEDICARE, SELFPAY ==
[2018-08-25 07:54] LABS: Color, Urine Yellow (Yellow); Glucose, Dipstick Normal (Normal); Ketone-Dipstick Negative (Negative); Leukocyte Esterase-Dipstick 500 /ul (Negative); Nitrite-Dipstick Negative (Negative); Occult Blood-Urine Negative /ul (Negative); Protein-Dipstick 30 mg/dl (Negative); Urine Bilirubin Dipstick Negative (Negative); Urine Clarity Sl. Cloudy (Clear); Urine Urobilinogen Normal (Normal)
[2018-08-25 08:02] LABS: Absolute Lymphocyte Count 2.68 X10^3/ul (0.83-4.51); Absolute Neutrophil Count 4.3 X10^3/uL (2.0-7.7); Basophil# 0.05 X10^3/uL; Basophil% 0.6 % (0-1); Eosinophil# 0.58 X10^3/uL; Eosinophils% 6.9 % (0-5); Hematocrit 33.3 % (37-47); Hemoglobin 10.3 g/dl (12.0-15.0); Lymphocyte # 2.68 X10^3/ul (4.0); Lymphocyte % 32.1 % (19-41); Mean Corp Hgb Conc 30.9 g/gl (32-36); Mean Corpuscular Hgb 26.9 pg (27.0-32.0); Mean Corpuscular Volume 86.9 fL (81-99); Mean Platelet Vol. 10.4 fl (6.2-12.0); Monocyte# 0.63 X10^3/uL; Monocyte% 7.5 % (0-10); Neutrophil # 4.34 X10^3/uL (2.7-7.7); Neutrophil % 51.9 % (47-70); POSITIVE COUNT NO; POSITIVE DIFFERENTIAL NO; POSITIVE MORPHOLOGY NO; Platelet Count 446 K/mm3 (150-450); RBC Distribution Width CV 17.8 % (11.6-14.6); RBC Distribution Width SD 55.3 fl (35.1-43.9); Red Blood Count 3.83 M/mm3 (4.2-5.4); White Blood Count 8.4 K/mm3 (4.4-11.0)
[2018-08-25 08:37] LABS: ALB/GLOB Ratio 0.8 RATIO (0.9-2.4); AST(SGOT) 27 U/L (15-37); Alanine Aminotransfer ALT/SGPT 24 U/L (13-56); Albumin, Serum 3.5 g/dL (3.2-5.0); Alkaline Phosphatase 103 U/L (45-117); Anion Gap 5 (5-15); BUN 14 mg/dL (7-18); BUN/Creat Ratio 13.1 RATIO (10-20); Calcium,Total 8.4 mg/dL (8.5-10.1); Chloride 106 mmol/L (98-107); Creatinine, Serum 1.07 mg/dL (0.55-1.02); EST Glomerular Filtration Rate 54 mL/min (>60); Est Glom Filt Rate - Afr Amer 65 mL/min (>60); Globulin 4.5 g/dL (2.2-4.2); Glucose 115 mg/dL (74-106); Potassium 3.8 mmol/L (3.5-5.1); Sodium Level 138 mmol/L (136-145); Thyroid Stim Hormone (TSH) 1.72 uIU/mL (0.358-3.74)
[2018-08-25 09:14] LABS: Microalbumin,Random Urine 10.8 mg/L (NO RANGE EST.); Microalbumin:Creatinine Ratio 5.6 mg/g CRE (<30 mg/g CRE); Vitamin D,25 Hydroxy 27.4 ng/mL (29.95-100.01)
[2018-08-26 15:47] LABS: CHOLESTEROL TOTAL 209 mg/dL (100-199); HDL-C 53 mg/dL (>39); HDL-P TOTAL 36.6 umol/L (>=30.5); SMALL LDL-P 612 nmol/L (<=527); TRIGLYCERIDES 150 mg/dL (0-149)
[2018-08-26 15:51] LABS: INSULIN RESISTANCE SCORE 50 (<=45); LDL SIZE 21.1 nm (>20.5); LDL-C 126 mg/dL (0-99); LDL-P 1406 nmol/L (<1000)
== END ==
PROVIDERS: Family Provider Internal Medicine; PCP Internal Medicine; Referring Provider Internal Medicine; Visit Provider Internal Medicine
DX: E11.9 Type 2 diabetes mellitus without complications (principal); E55.9 Vitamin D deficiency, unspecified
CPT/HCPCS: 36415; 80053; 80061; 81002; 82043; 82306; 82570; 83704; 84443; 85025

== ENCOUNTER → 2018-09-05 | Outpatient (CLI) | payer MEDICARE, SELFPAY ==
--- NOTE | 2018-09-05 08:30 | VDLE_ITS ---
Reason For Study: Pain in right calf RIGHT LEFT GSV is normal. GSV is normal. CFV is compressible, spontaneous, phasic, CFV is compressible, spontaneous, phasic, competent and demonstrates normal competent, and demonstrates normal augmentation. augmentation. FV is compressible, spontaneous, phasic, FV is compressible, spontaneous, phasic, competent and demonstrates normal competent and demonstrates normal augmentation. augmentation. POP V is compressible, spontaneous, phasic, POP V is compressible, spontaneous, phasic, competent and demonstrates normal competent and demonstrates normal augmentation. augmentation. T/P Trunk is compressible. T/P Trunk is compressible. PTV is compressible. PTV is compressible. RT PerV is compressible. LT PerV is compressible. Procedure Exam performed in department. A preliminary report was called and/or faxed to Jolene. Interpretation Summary Deep veins of the lower extremities are bilaterally patent and compressible segmentally. There is no evidence of deep vein thrombosis on either side. Valvular competence appears intact within the proximal deep venous systems bilaterally. The greater saphenous veins appear bilaterally patent and compressible segmentally. Ordering Physician: Katie Fernández Referring Physician: Katie Fernández Performed By: Alisa Dunne RVT
== END | disposition home or self-care (01) ==
LOC: CVS 08:26
PROVIDERS: Family Provider Internal Medicine; PCP Internal Medicine; Referring Provider Internal Medicine; Visit Provider Internal Medicine
DX: M79.661 Pain in right lower leg (principal)
CPT/HCPCS: 93970

== ENCOUNTER → 2018-09-26 | Outpatient (CLI) | payer MEDICARE, SELFPAY ==
--- NOTE | 2018-09-26 06:50 | ECHOD_ITS ---
Reason For Study: SOB Procedure This was a 2D Doppler, Color Flow transthoracic echocardiogram. Exam performed in department. Left Ventricle Normal size and thickness. Left ventricular systolic function is normal. The estimated ejection fraction is 60 %. Normal diastology for age. Right Ventricle Normal RV size. Normal systolic function. Atria Normal left atrium. Normal right atrium. No doppler evidence for ASD. Mitral Valve There is no mitral valve stenosis. No mitral valve insufficiency. Tricuspid Valve There is no tricuspid stenosis. Trivial tricuspid valve insufficiency. Pulmonary artery systolic pressure is 25 mmHg. Aortic Valve Trisinus/trileaflet aortic valve. There is no aortic stenosis. No aortic valve insufficiency. Pulmonic Valve There is no pulmonic valvular stenosis. No pulmonic valve insufficiency. Great Vessels Normal aortic root. Pericardium/Pleural No pericardial effusion. Medication Performed a rapid injection of agitated mix of 9 cc saline and 1cc air to assess for atrial septal defect. MMode/2D Measurements & Calculations LVIDd: 3.8 cm IVSd: 1.2 cm Ao root diam: 3.3 cm LVIDs: 2.2 cm LVPWd: 1.1 cm RVDd: 2.8 cm FS: 43.3 % LAV(MOD-bp): 36.2 ml LA A4 area: 15.5 cm2 LA dimension(2D): 3.5 cm LAV(MOD-bp) Indexed: 21.9 ml/m2 LAV(MOD-sp2): 31.7 ml LAV(MOD-sp4): 38.9 ml RA A4 area: 10.8 cm2 Doppler Measurements & Calculations MV E max sylvester: 77.8 cm/sec Lat Peak E' Sylvester: 8.7 cm/sec Med Peak E' Sylvester: 6.8 cm/sec MV A max sylvester: 97.7 cm/sec E/E' lat: 9.0 E/E' med: 11.5 MV E/A: 0.80 Ao V2 max: 144.8 cm/sec LV V1 max: 120.8 cm/sec PA V2 max: 105.8 cm/sec Ao max P.4 mmHg LV V1 max P.8 mmHg TR max sylvester: 237.5 cm/sec TR max P.6 mmHg Interpretation Summary Left ventricular systolic function is normal. The estimated ejection fraction is 60 %. Normal diastology for age. Ordering Physician: Katie Fernández Referring Physician: Katie Fernández Performed By: Serena Donato RDCS
--- NOTE | 2018-09-26 14:53 | STRESSREP ---
Stress Test Report Date: September 26, 2018 Procedure: Exercise tolerance test/imaging study Indications: [Shortness of breath] Consent: Per the patient Procedure: The patient exercised on a Aniceto protocol for 4 minutes achieving a peak heart rate of 144 bpm (96 % predicted maximal heart rate) with a peak blood pressure 204/60 mmHg and a peak MET capacity of 5.8 METs. The baseline ECG demonstrated normal sinus rhythm. The peak exercise ECG demonstrated sinus tachycardia with about half a millimeter ST depression in the lateral leads. EKG during recovery revealed no significant change from baseline [There were no cardiac dysrhythmias pretest, during exercise, or recovery]. The functional capacity was considered below average for age. There was [no complaint of chest discomfort during exercise or recovery]. The examination was discontinued secondary to dyspnea. Impression: 1. Technically adequate (percent predicted maximal heart rate greater than 85%) exercise tolerance test 2. Stress test is negative for exercise-induced EKG changes of ischemia 3. The test test negative for exercise-induced chest pain 4. Functional capacity is below average for age 5. Nuclear images pending Myocardial perfusion imaging study: Technique: The patient was injected with 11.4 mCi of technetium 99m Cardiolite and subsequently rest SPECT Cardiolite nuclear imaging was obtained in the horizontal long, vertical long, and short axis views. The patient exercised on a Aniceto protocol. Please see above for details. The patient was injected with 33.9 mCi of technetium 99m Cardiolite and subsequently stress SPECT Cardiolite nuclear imaging was obtained in the horizontal long, vertical long, and short axis views. A gated Cardiolite study at peak stress was obtained. Interpretation: Rest and stress SPECT Cardiolite nuclear imaging status post realignment, normalization, and attenuation correction, demonstrates normal myocardial radioisotope uptake. The gated Cardiolite study demonstrates no significant regional wall motion abnormalities. The reported LVEF is than 70 %. Impression: 1. There is no evidence of significant ischemia or infarction. 2. The gated Cardiolite study reports an LVEF of greater than 70 %. This note was generated with Saperion software. It may contain incorrect words, spelling, and punctuation that were not noted in checking the note before signing.
== END | disposition home or self-care (01) ==
LOC: CVS 06:22
PROVIDERS: Family Provider Internal Medicine; PCP Internal Medicine; Referring Provider Internal Medicine; Visit Provider Internal Medicine
DX: R06.09 Other forms of dyspnea (principal); R06.02 Shortness of breath
CPT/HCPCS: 78452; 93017; 93306; A9500; A4216

== ENCOUNTER → 2018-12-08 | Outpatient (CLI) | payer MEDICARE, SELFPAY ==
--- NOTE | 2018-12-08 11:58 | BI_ITS ---
MAMMOGRAPHY - BILATERAL SCREENING REASON FOR EXAM: Female, 68 years old. Routine annual screening examination. PERTINENT HISTORY: History of prior right breast biopsy. Mother with breast cancer. Aunts with breast cancer. TECHNIQUE: Digital bilateral breast hemanth (3D mammographic acquisition) in the CC and MLO projections. 2-D mediolateral oblique (MLO) and craniocaudad (CC) views of both breasts were obtained. CAD: Full Field Digital Mammography with Computer Added Detection was performed. COMPARISON: Comparison is made with prior study dated December 06, 2017 and November 23, 2016. FINDINGS: Breast Composition: There are scattered areas of fibroglandular density. There are no dominant masses or suspicious calcifications. No other significant abnormalities are identified. There has been no significant change since the prior study. BI/SCREEN MAMM (CAD) W/HEMANTH BILAT IMPRESSION: Stable bilateral screening mammogram. Yearly follow-up mammogram recommended. (A) ASSESSMENT CATEGORY: BIRADS Category 1: Negative. A letter regarding these results will be sent to the patient by the facility within 30 days. Approximately 10% of breast cancers are not detected by mammography. A normal mammogram should not delay biopsy of a clinically suspicious abnormality. [id number] Electronically Signed: Riccardo Vazquez, at 12:57 EDT , Service support ,
== END | disposition home or self-care (01) ==
LOC: OPBI 11:56
PROVIDERS: Family Provider Internal Medicine; PCP Internal Medicine; Referring Provider Obstetrics & Gynecology; Visit Provider Obstetrics & Gynecology
DX: Z12.31 Encounter for screening mammogram for malignant neoplasm of breast (principal)
CPT/HCPCS: 77063; 77067

== ENCOUNTER → 2019-04-21 08:25 | Outpatient (CLI) | payer MEDICARE, SELFPAY ==
[2019-04-21 08:31] LABS: Mucous, Urine 0 SEEN /hpf (<or=2+); Red Blood Cells-Urine 0 SEEN /hpf (0-5); White Blood Cells 0 SEEN /hpf (0-5)
[2019-04-21 09:42] LABS: Absolute Lymphocyte Count 2.77 X10^3/uL (0.83-4.51); Absolute Neutrophil Count 4.6 X10^3/uL (2.0-7.7); Basophil% 1.2 % (0-1); Eosinophil# 0.29 X10^3/uL; Eosinophils% 3.4 % (0-5); Hematocrit 32.5 % (37-47); Hemoglobin 9.9 g/dL (12.0-15.0); Lymphocyte # 2.77 X10^3/ul (4.0); Lymphocyte % 32.7 % (19-41); Mean Corp Hgb Conc 30.5 g/dL (32-36); Mean Corpuscular Hgb 25.7 pg (27.0-32.0); Mean Corpuscular Volume 84.4 fL (81-99); Mean Platelet Vol. 10.8 fl (6.2-12.0); Monocyte# 0.64 X10^3/uL; Monocyte% 7.6 % (0-10); NRBC Flagged by Analyzer 0 % (0-5); Neutrophil # 4.61 X10^3/uL (2.7-7.7); Neutrophil % 54.4 % (47-70); Platelet Count 467 K/mm3 (150-450); RBC Distribution Width CV 18.8 % (11.6-14.6); RBC Distribution Width SD 57.3 fl (35.1-43.9); Red Blood Count 3.85 M/mm3 (4.2-5.4); White Blood Count 8.5 K/mm3 (4.4-11.0)
[2019-04-21 09:47] LABS: Color, Urine Yellow (Yellow); Glucose, Dipstick Normal (Normal); Ketone-Dipstick Negative (Negative); Leukocyte Esterase-Dipstick 500 /ul (Negative); Nitrite-Dipstick Negative (Negative); Occult Blood-Urine Negative /ul (Negative); Protein-Dipstick Negative (Negative); Urine Clarity Sl. Cloudy (Clear); Urine Urobilinogen Normal (Normal)
[2019-04-21 09:59] LABS: Squamous Epithelial Cells - UA 0-5 SEEN /hpf (5-10)
[2019-04-21 10:00] LABS: Bacteria RARE /hpf (None Seen); Urine Bilirubin Dipstick Negative (Negative)
[2019-04-21 10:05] LABS: Microalbumin,Random Urine 9.4 mg/L (NO RANGE EST.); Microalbumin:Creatinine Ratio 11.8 mg/g CRE (<30 mg/g CRE)
[2019-04-21 10:18] LABS: ALB/GLOB Ratio 0.8 RATIO (0.9-2.4); AST(SGOT) 29 U/L (15-37); Alanine Aminotransfer ALT/SGPT 31 U/L (13-56); Albumin, Serum 3.5 g/dL (3.2-5.0); Alkaline Phosphatase 97 U/L (45-117); Anion Gap 2 (5-15); BUN 14 mg/dL (7-18); Calcium,Total 9.2 mg/dL (8.5-10.1); Chloride 107 mmol/L (98-107); Creatinine, Serum 1.08 mg/dL (0.55-1.02); EST Glomerular Filtration Rate 53 mL/min (>60); Est Glom Filt Rate - Afr Amer 64 mL/min (>60); Globulin 4.4 g/dL (2.2-4.2); Glucose 102 mg/dL (74-106); Potassium 4.1 mmol/L (3.5-5.1); Protein, Total 7.9 g/dL (6.4-8.2); Sodium Level 138 mmol/L (136-145); Thyroid Stim Hormone (TSH) 2.08 uIU/mL (0.358-3.74)
[2019-04-21 12:37] LABS: Vitamin B12 675 pg/mL (211-911); Vitamin D,25 Hydroxy 28.2 ng/mL (29.95-100.01)
[2019-04-22 14:08] LABS: CHOLESTEROL TOTAL 212 mg/dL (100-199); HDL-C 53 mg/dL (>39); HDL-P TOTAL 36.7 umol/L (>=30.5); SMALL LDL-P 768 nmol/L (<=527); TRIGLYCERIDES 143 mg/dL (0-149)
[2019-04-22 17:58] LABS: INSULIN RESISTANCE SCORE 49 (<=45); LDL SIZE 21.1 nm (>20.5); LDL-C 130 mg/dL (0-99); LDL-P 1541 nmol/L (<1000)
== END ==
LOC: LAB.FUTURE 08:26 → LAB 08:31
PROVIDERS: Family Provider Internal Medicine; PCP Internal Medicine; Referring Provider Internal Medicine; Visit Provider Internal Medicine
DX: I10 Essential (primary) hypertension (principal); E55.9 Vitamin D deficiency, unspecified; D53.9 Nutritional anemia, unspecified; E78.2 Mixed hyperlipidemia
CPT/HCPCS: 36415; 80053; 80061; 81001; 82043; 82306; 82570; 82607; 83704; 84443; 85025

== ENCOUNTER → 2019-10-30 | Outpatient (CLI) | payer MEDICARE, SELFPAY ==
[2019-10-30 10:45] LABS: Color, Urine Yellow (Yellow); Glucose, Dipstick Normal (Normal); Ketone-Dipstick Negative (Negative); Leukocyte Esterase-Dipstick 500 /ul (Negative); Nitrite-Dipstick Negative (Negative); Occult Blood-Urine 10 /ul (Negative); Protein-Dipstick Negative (Negative); Specific Gravity, Urine 1.015 (1.002-1.030); Urine Bilirubin Dipstick Negative (Negative); Urine Clarity Sl. Cloudy (Clear); Urine Urobilinogen Normal (Normal)
[2019-10-30 10:47] LABS: Absolute Lymphocyte Count 2.69 X10^3/uL (0.83-4.51); Absolute Neutrophil Count 4.2 X10^3/uL (2.0-7.7); Basophil% 1.3 % (0-1); Eosinophil# 0.24 X10^3/uL; Eosinophils% 3.1 % (0-5); Hemoglobin 9.2 g/dL (12.0-15.0); Lymphocyte # 2.69 X10^3/ul (4.0); Lymphocyte % 34.6 % (19-41); Mean Corp Hgb Conc 30.7 g/dL (32-36); Mean Corpuscular Hgb 27.1 pg (27.0-32.0); Mean Corpuscular Volume 88.5 fL (81-99); Mean Platelet Vol. 10.9 fl (6.2-12.0); Monocyte# 0.52 X10^3/uL; Monocyte% 6.7 % (0-10); NRBC Flagged by Analyzer 0 % (0-5); Neutrophil # 4.17 X10^3/uL (2.7-7.7); Neutrophil % 53.7 % (47-70); POSITIVE MORPHOLOGY YES; Platelet Count 394 K/mm3 (150-450); RBC Distribution Width CV 20.2 % (11.6-14.6); RBC Distribution Width SD 63.7 fl (35.1-43.9); Red Blood Count 3.39 M/mm3 (4.2-5.4); White Blood Count 7.8 K/mm3 (4.4-11.0)
[2019-10-30 10:51] LABS: Differential Indicated SCAN CRITERIA MET
[2019-10-30 11:07] LABS: Microalbumin,Random Urine 15.1 mg/L (NO RANGE EST.); Microalbumin:Creatinine Ratio 10.2 mg/g CRE (<30 mg/g CRE)
[2019-10-30 11:26] LABS: ALB/GLOB Ratio 0.8 RATIO (0.9-2.4); AST(SGOT) 39 U/L (15-37); Alanine Aminotransfer ALT/SGPT 44 U/L (13-56); Albumin, Serum 3.5 g/dL (3.2-5.0); Alkaline Phosphatase 95 U/L (45-117); Anion Gap 5 (5-15); BUN 12 mg/dL (7-18); BUN/Creat Ratio 12.2 RATIO (10-20); Calcium,Total 8.7 mg/dL (8.5-10.1); Chloride 108 mmol/L (98-107); Cholesterol 190 mg/dL (200); Creatinine, Serum 0.98 mg/dL (0.55-1.02); EST Glomerular Filtration Rate 59 mL/min (>60); Est Glom Filt Rate - Afr Amer 72 mL/min (>60); Globulin 4.5 g/dL (2.2-4.2); Glucose 98 mg/dL (74-106); High Density Lipoprotein 57 mg/dL; Sodium Level 138 mmol/L (136-145); Thyroid Stim Hormone (TSH) 1.71 uIU/mL (0.358-3.74); Triglycerides 161 mg/dL; Very Low Density Lipoprotein 32 mg/dL (5-40)
[2019-10-30 12:00] LABS: Acanthocytes 2+; Anisocytosis 2+; Hypochromasia 2+; Microcytosis 1+; Platelet Estimate ADEQUATE (ADEQ); Schistocytes 1+; Spherocyte 2+
[2019-11-02 12:17] LABS: Pathologist Review Reviewed
[2019-11-02 16:21] LABS: Vitamin D 1,25-Dihydroxy 54.4 pg/mL (19.9-79.3)
== END | disposition home or self-care (01) ==
LOC: LAB 10:12
PROVIDERS: PCP Internal Medicine; Referring Provider Internal Medicine; Visit Provider Internal Medicine
DX: E55.9 Vitamin D deficiency, unspecified (principal); E78.2 Mixed hyperlipidemia; D53.9 Nutritional anemia, unspecified; I10 Essential (primary) hypertension
CPT/HCPCS: 36415; 80053; 80061; 81002; 82043; 82570; 82652; 84443; 85025

== ENCOUNTER → 2019-12-14 | Outpatient (CLI) | payer MEDICARE, SELFPAY ==
--- NOTE | 2019-12-14 11:52 | BI_ITS ---
MAMMOGRAPHY - BILATERAL SCREENING REASON FOR EXAM: Female, 69 years old. Routine annual screening examination. PERTINENT HISTORY: Mother with breast cancer. Aunts with breast cancer. Remote right breast biopsy. TECHNIQUE: Digital bilateral breast hemanth (3D mammographic acquisition) in the CC and MLO projections. 2-D mediolateral oblique (MLO) and craniocaudad (CC) views of both breasts were obtained. CAD: Full Field Digital Mammography with Computer Added Detection was performed. COMPARISON: Comparison is made with prior examination dated 12/08/2018 and 12/06/2017. FINDINGS: Breast Composition: There are scattered areas of fibroglandular density. There are no dominant masses or suspicious calcifications. Mild degree of architectural distortion in the upper slightly lateral portion of the right breast in keeping with prior excisional biopsy. No other significant abnormalities are identified. There has been no significant change since the prior study. BI/SCREEN MAMM (CAD) W/HEMANTH BILAT IMPRESSION: Stable bilateral screening mammogram. Yearly follow-up mammogram recommended. (A) ASSESSMENT CATEGORY: BIRADS Category 2: Benign. A letter regarding these results will be sent to the patient by the facility within 30 days. Approximately 10% of breast cancers are not detected by mammography. A normal mammogram should not delay biopsy of a clinically suspicious abnormality. [id number] Electronically Signed: Riccardo Vazquez, at 13:19 EDT , Service support ,
== END | disposition home or self-care (01) ==
LOC: OPBI 11:51
PROVIDERS: PCP Internal Medicine; Referring Provider Internal Medicine; Visit Provider Internal Medicine
DX: Z12.31 Encounter for screening mammogram for malignant neoplasm of breast (principal)
CPT/HCPCS: 77063; 77067

== ENCOUNTER → 2020-05-02 08:25 | Outpatient (CLI) | payer MEDICARE, SELFPAY ==
[2020-05-02 09:40] LABS: Color, Urine Yellow (Yellow); Glucose, Dipstick Normal (Normal); Ketone-Dipstick Negative (Negative); Leukocyte Esterase-Dipstick 100 /ul (Negative); Nitrite-Dipstick Negative (Negative); Occult Blood-Urine 250 /ul (Negative); Protein-Dipstick Negative (Negative); Specific Gravity, Urine 1.015 (1.002-1.030); Urine Bilirubin Dipstick Negative (Negative); Urine Clarity Sl. Cloudy (Clear); Urine Urobilinogen Normal (Normal)
[2020-05-02 09:42] LABS: Absolute Lymphocyte Count 2.79 X10^3/uL (0.83-4.51); Absolute Neutrophil Count 5.4 X10^3/uL (2.0-7.7); Basophil# 0.11 X10^3/uL; Basophil% 1.2 % (0-1); Hematocrit 30.1 % (37-47); Hemoglobin 9.2 g/dL (12.0-15.0); Lymphocyte # 2.79 X10^3/ul (4.0); Lymphocyte % 30.8 % (19-41); Mean Corp Hgb Conc 30.6 g/dL (32-36); Mean Corpuscular Hgb 25.7 pg (27.0-32.0); Mean Corpuscular Volume 84.1 fL (81-99); Mean Platelet Vol. 11.1 fl (6.2-12.0); Monocyte# 0.69 X10^3/uL; Monocyte% 7.6 % (0-10); NRBC Flagged by Analyzer 0 % (0-5); Neutrophil # 5.37 X10^3/uL (2.7-7.7); Neutrophil % 59.4 % (47-70); Platelet Count 423 K/mm3 (150-450); RBC Distribution Width CV 19.4 % (11.6-14.6); RBC Distribution Width SD 58.6 fl (35.1-43.9); Red Blood Count 3.58 M/mm3 (4.2-5.4); White Blood Count 9.1 K/mm3 (4.4-11.0)
[2020-05-02 10:00] LABS: Microalbumin,Random Urine 28.6 mg/L (NO RANGE EST.); Microalbumin:Creatinine Ratio 17.4 mg/g CRE (<30 mg/g CRE)
[2020-05-02 10:19] LABS: Vitamin D,25 Hydroxy 82.2 ng/mL
[2020-05-02 10:42] LABS: Anion Gap 9 (5-15); BUN 16 mg/dL (7-18); BUN/Creat Ratio 15.4 RATIO (10-20); Calcium,Total 8.8 mg/dL (8.5-10.1); Chloride 107 mmol/L (98-107); Cholesterol 200 mg/dL (200); Creatinine, Serum 1.04 mg/dL (0.55-1.02); EST Glomerular Filtration Rate 55 mL/min (>60); Est Glom Filt Rate - Afr Amer 67 mL/min (>60); Glucose 100 mg/dL (74-106); High Density Lipoprotein 63 mg/dL; Potassium 3.9 mmol/L (3.5-5.1); Sodium Level 139 mmol/L (136-145); Thyroid Stim Hormone (TSH) 2.12 uIU/mL (0.358-3.74); Triglycerides 143 mg/dL; Very Low Density Lipoprotein 29 mg/dL (5-40)
== END ==
PROVIDERS: PCP Internal Medicine; Referring Provider Internal Medicine; Visit Provider Internal Medicine
DX: E55.9 Vitamin D deficiency, unspecified (principal); I10 Essential (primary) hypertension; E78.2 Mixed hyperlipidemia
CPT/HCPCS: 36415; 80048; 80061; 81002; 82043; 82306; 82570; 84443; 85025

== ENCOUNTER 2020-08-30 11:30 | Outpatient (RCR) | payer MEDICARE, SELFPAY ==
--- NOTE | 2020-08-02 13:20 | HP.PTEVAL ---
Patient's Visit Information LISETTE CRISOSTOMO is a 69 year old F referred to Physical Therapy by Dr. Fidel Felix MD with a diagnosis of R Unilateral OA. Date of Evaluation: 08/02/20 Physical Therapist: KALYAN Tolbert - Visit Plan Frequency: 2x /Week Duration: 4 Weeks Plan: 2X/ week for 4 weeks for L hip and knee strength (low impact), core strength, stretching as needed with HEP - Subjective For years she has been putting Biofreeze on her knees. All of the sudden Her R knee has sarted to bother her. Dr Vazquez says it is her bone on bone arthritis. She had a cortizone shot in her R knee and was good for a few weeks. Now she has pain in her R knee after she heard a pop in her R knee. She can not go for a long walk. For the most part she feels better sitting with her knees bent. She is sleeping ok. She has started using voltarin and has been wonderful. She does do chair Yoga at the [facility]. She does not want a knee replacement. They have talked about shots into her knee. She can have another cortizone shot the first week of August. The last shot only helped for a couple of weeks. Stairs: Sometimes she is a step two pattern and sometimes she can go recip. Sit to stand: she can do that. Curb steps: She is fine on them. Balance: go balance. She is not a fan of the pool. She is sleeping at night - Pain R knee pain Pain Intensity (Out of 10): 1 Pain Intensity Range: 9 - Objective Gait: Walks with slightly decreased stance time on the R LE. LE MMT: R knee flex 4-/5 and L 4/5, R knee ext 4/5 and L 4/5, R hip abd 4-/5 and l 4/5. 0-122 L knee. 0-106 R knee. Palpation: Tender along the R medial joint line. L 39, 39, 43.4. R 39.4, 41, 46 - Goals Goal 1:: I HEP Goal Time Frame: 4-6 Weeks Goal 2:: Increase R hip and knee strength to 4/5 Goal Time Frame: 4-6 Weeks Goal 3:: Be able to go up and down the stairs recip with a hand rail consistenly Goal Time Frame: 4-6 Weeks Goal 4:: Be able to walk with 50% reduction in R knee pain Goal Time Frame: 4-6 Weeks - Rehabilitation Potential Rehabilitation Potential: Good - Anticipated Interventions Patient/Client Instruction: Educate patient on: Condition, Plan of Care For the Purpose of:: To decrease pain, To decrease swelling/inflammation, To increase ROM, To improve nutrient delivery to tissue, To improve muscle performance and motor function, To improve ability to perform ADL's, To increase tolerance to activity/condition/position, To improve performance and independence with ADL's, To decrease level of supervision to perform tasks, To improve ability of physical actions for home/community/work/leisure, To improve gait and locomotor functions, To improve health of tissue, To decrease soft tissue restriction, To increase flexibility/ROM, To improve balance, To improve safety with gait Therapeutic Exercise to Include: Strength training, Endurance training, Balance training, Postural training, Flexibilty training, Gait and locomotor training, Neuromotor development, Passive ROM, Active ROM For the Purpose of:: To decrease pain, To decrease swelling/inflammation, To increase ROM, To improve nutrient delivery to tissue, To increase oxygenation perfusion, To improve muscle performance and motor function, To improve ability to perform ADL's, To increase tolerance to activity/condition/position, To improve performance and independence with ADL's, To improve ability of physical actions for home/community/work/leisure, To improve gait and locomotor functions, To improve health of tissue, To decrease soft tissue restriction, To increase flexibility/ROM, To improve endurance, To improve balance Functional Training to Include: Gait training For the Purpose of:: To improve gait and locomotor functions Thank you for the opportunity to evaluate your patient. For Medicare and Medicare HMO plans, please review the plan of care and approve it. It will need to be FAXED BACK to us at [phone] for Medicare purposes. For Medicare only, by signing this I certify the plan of care. Please let me know if there are questions or concerns regarding this plan of care. Physician Signature: Date:
--- NOTE | 2020-08-30 12:08 | HP.PTEVAL ---
Patient's Visit Information LISETTE CRISOSTOMO is a 69 year old F referred to Physical Therapy by Dr. Fidel Felix MD with a diagnosis of R Unilateral OA. Date of Evaluation: 08/02/20 Physical Therapist: KALYAN Tolbert - Visit Plan Frequency: 2x /Week Duration: 4 Weeks Plan: 2X/ week for 4 weeks for L hip and knee strength (low impact), core strength, stretching as needed with HEP - Subjective For years she has been putting Biofreeze on her knees. All of the sudden Her R knee has sarted to bother her. Dr Vazquez says it is her bone on bone arthritis. She had a cortizone shot in her R knee and was good for a few weeks. Now she has pain in her R knee after she heard a pop in her R knee. She can not go for a long walk. For the most part she feels better sitting with her knees bent. She is sleeping ok. She has started using voltarin and has been wonderful. She does do chair Yoga at the [facility]. She does not want a knee replacement. They have talked about shots into her knee. She can have another cortizone shot the first week of August. The last shot only helped for a couple of weeks. Stairs: Sometimes she is a step two pattern and sometimes she can go recip. Sit to stand: she can do that. Curb steps: She is fine on them. Balance: go balance. She is not a fan of the pool. She is sleeping at night - Pain R knee pain Pain Intensity (Out of 10): 2 Pain Intensity Range: 9 - Objective Gait: Walks with slightly decreased stance time on the R LE. LE MMT: R knee flex 4-/5 and L 4/5, R knee ext 4/5 and L 4/5, R hip abd 4-/5 and l 4/5. 0-122 L knee. 0-106 R knee. Palpation: Tender along the R medial joint line. L 39, 39, 43.4. R 39.4, 41, 46 - Goals Goal 1:: I HEP Goal Time Frame: 4-6 Weeks Goal 2:: Increase R hip and knee strength to 4/5 Goal Time Frame: 4-6 Weeks Goal 3:: Be able to go up and down the stairs recip with a hand rail consistenly Goal Time Frame: 4-6 Weeks Goal 4:: Be able to walk with 50% reduction in R knee pain Goal Time Frame: 4-6 Weeks - Rehabilitation Potential Rehabilitation Potential: Good - Anticipated Interventions Patient/Client Instruction: Educate patient on: Condition, Plan of Care For the Purpose of:: To decrease pain, To decrease swelling/inflammation, To increase ROM, To improve nutrient delivery to tissue, To improve muscle performance and motor function, To improve ability to perform ADL's, To increase tolerance to activity/condition/position, To improve performance and independence with ADL's, To decrease level of supervision to perform tasks, To improve ability of physical actions for home/community/work/leisure, To improve gait and locomotor functions, To improve health of tissue, To decrease soft tissue restriction, To increase flexibility/ROM, To improve balance, To improve safety with gait Therapeutic Exercise to Include: Strength training, Endurance training, Balance training, Postural training, Flexibilty training, Gait and locomotor training, Neuromotor development, Passive ROM, Active ROM For the Purpose of:: To decrease pain, To decrease swelling/inflammation, To increase ROM, To improve nutrient delivery to tissue, To increase oxygenation perfusion, To improve muscle performance and motor function, To improve ability to perform ADL's, To increase tolerance to activity/condition/position, To improve performance and independence with ADL's, To improve ability of physical actions for home/community/work/leisure, To improve gait and locomotor functions, To improve health of tissue, To decrease soft tissue restriction, To increase flexibility/ROM, To improve endurance, To improve balance Functional Training to Include: Gait training For the Purpose of:: To improve gait and locomotor functions Thank you for the opportunity to evaluate your patient. For Medicare and Medicare HMO plans, please review the plan of care and approve it. It will need to be FAXED BACK to us at [phone] for Medicare purposes. For Medicare only, by signing this I certify the plan of care. Please let me know if there are questions or concerns regarding this plan of care. Physician Signature: Date:
--- NOTE | 2020-12-30 09:57 | HP.PT.NRP ---
LISETTE CRISOSTOMO was seen in my office for initial evaluation on 08/02/20. The following Plan of Care was established for this patient: Initial Frequency: 2x /Week Initial Duration: 4 Weeks Patient/Client Instruction: Educate patient on: Condition, Plan of Care For the Purpose of:: To decrease pain, To decrease swelling/inflammation, To increase ROM, To improve nutrient delivery to tissue, To improve muscle performance and motor function, To improve ability to perform ADL's, To increase tolerance to activity/condition/position, To improve performance and independence with ADL's, To decrease level of supervision to perform tasks, To improve ability of physical actions for home/community/work/leisure, To improve gait and locomotor functions, To improve health of tissue, To decrease soft tissue restriction, To increase flexibility/ROM, To improve balance, To improve safety with gait Therapeutic Exercise to Include: Strength training, Endurance training, Balance training, Postural training, Flexibilty training, Gait and locomotor training, Neuromotor development, Passive ROM, Active ROM For the Purpose of:: To decrease pain, To decrease swelling/inflammation, To increase ROM, To improve nutrient delivery to tissue, To increase oxygenation perfusion, To improve muscle performance and motor function, To improve ability to perform ADL's, To increase tolerance to activity/condition/position, To improve performance and independence with ADL's, To improve ability of physical actions for home/community/work/leisure, To improve gait and locomotor functions, To improve health of tissue, To decrease soft tissue restriction, To increase flexibility/ROM, To improve endurance, To improve balance Functional Training to Include: Gait training For the Purpose of:: To improve gait and locomotor functions This patient was last seen in our office 08/30/20. Pertinent comments regarding their Physical therapy will appear below: DC PT At this point I will be discontinuing this patient from physical therapy. I would be happy to see this patient again in the future if found appropriate by the physician. Thank you! Iesha Starr, KALYAN Balance/Gait/Functional tests - Balance/Special Test Scores Lower Extremity Functional Score: 38
== END 2020-08-30 19:00 | disposition home or self-care (01) ==
LOC: PT 11:30
PROVIDERS: PCP Internal Medicine; Referring Provider Orthopaedic Surgery; Visit Provider Orthopaedic Surgery
DX: M17.11 Unilateral primary osteoarthritis, right knee (principal)
CPT/HCPCS: 97110; 97161; 97530

== ENCOUNTER → 2020-10-25 | Outpatient (CLI) | payer MEDICARE, SELFPAY ==
--- NOTE | 2020-10-25 | LIP_PTH ---
PATIENT: LISETTE CRISOSTOMO [id number] AGE/SX: 70/F ROOM: RE10/25/[address]: Dr. Jan Jain DDS : 1950 BED: DIS: 10/25/2020 SPEC #: [id number] RECD: 10/25/20 10:06 STATUS: ROMÁN ROGELIO #: [id number] GIANCARLO: 10/25/20 00:[address]: Jan Jain DEPT: SURGICAL PATHOLOGY RECD BY: Jillian Augustine ENTERED: 10/25/20 11:14 SP TYPE: LIPOMA OTHR DR: Dr. Katie Fernández, DO Tissues: Soft tissues, NOS Procedures: Surgery Specimen Level IV HEADER OPERATION: Biopsy lower lip PRE-OP DIAGNOSIS: Hematoma, blood under bite injury, no tumor found TISSUE SUBMITTED: Lower lip MICROSCOPIC DIAGNOSIS Lower lip lesion, biopsy: Ulceration with granulation and associated fibrinoid material. No evidence of malignancy. See comment. AM:lars 10/26/2020 COMMENT The findings are consistent with bite injury. Clinical correlation is suggested. MICROSCOPIC DESCRIPTION Slides are reviewed. GROSS DESCRIPTION Received in fixative is one container labeled with the patient's name and designated lower lip. The specimen consists of an elongated fragment of [place] soft tissue measuring 0.7 x 0.2 x 0.1 cm. The specimen is totally submitted in one cassette. / AM:lars 10/25/20 TC:3 CPT: 93839
== END | disposition home or self-care (01) ==
LOC: LABSPEC 10:42
PROVIDERS: PCP Internal Medicine; Referring Provider Dentist Oral and Maxillofacial Surgery; Visit Provider Dentist Oral and Maxillofacial Surgery
DX: K13.0 Diseases of lips (principal)
CPT/HCPCS: 88304; 88305

== ENCOUNTER → 2020-10-27 08:04 | Outpatient (CLI) | payer MEDICARE, SELFPAY ==
[2020-10-27 08:10] LABS: Mucous, Urine 0 SEEN /hpf (<or=2+); Red Blood Cells-Urine 0 SEEN /hpf (0-5)
[2020-10-27 08:56] LABS: Absolute Lymphocyte Count 2.65 X10^3/uL (0.83-4.51); Absolute Neutrophil Count 5.8 X10^3/uL (2.0-7.7); Basophil% 1.1 % (0-1); Hematocrit 31.8 % (37-47); Hemoglobin 9.4 g/dL (12.0-15.0); Lymphocyte # 2.65 X10^3/ul (0.83-4.51); Lymphocyte % 29.1 % (19-41); Mean Corp Hgb Conc 29.6 g/dL (32-36); Mean Corpuscular Hgb 25.3 pg (27.0-32.0); Mean Corpuscular Volume 85.7 fL (81-99); Mean Platelet Vol. 11.6 fl (6.2-12.0); Monocyte# 0.52 X10^3/uL; Monocyte% 5.7 % (0-10); NRBC Flagged by Analyzer 0 % (0-5); Neutrophil # 5.75 X10^3/uL (2.7-7.7); Platelet Count 428 K/mm3 (150-450); RBC Distribution Width CV 19.6 % (11.6-14.6); RBC Distribution Width SD 60.2 fl (35.1-43.9); Red Blood Count 3.71 M/mm3 (4.2-5.4); White Blood Count 9.1 K/mm3 (4.4-11.0)
[2020-10-27 09:30] LABS: Vitamin D,25 Hydroxy 98.7 ng/mL
[2020-10-27 09:43] LABS: ALB/GLOB Ratio 0.8 RATIO (0.9-2.4); AST(SGOT) 24 U/L (15-37); Alanine Aminotransfer ALT/SGPT 25 U/L (13-56); Albumin, Serum 3.4 g/dL (3.2-5.0); Alkaline Phosphatase 115 U/L (45-117); Anion Gap 11 (5-15); BUN 16 mg/dL (7-18); BUN/Creat Ratio 14.7 RATIO (10-20); Calcium,Total 8.8 mg/dL (8.5-10.1); Chloride 104 mmol/L (98-107); Cholesterol 232 mg/dL (200); Creatinine, Serum 1.09 mg/dL (0.55-1.02); EST Glomerular Filtration Rate 52 mL/min (>60); Est Glom Filt Rate - Afr Amer 63 mL/min (>60); Globulin 4.5 g/dL (2.2-4.2); Glucose 105 mg/dL (74-106); High Density Lipoprotein 68 mg/dL; Protein, Total 7.9 g/dL (6.4-8.2); Sodium Level 140 mmol/L (136-145); Thyroid Stim Hormone (TSH) 2.57 uIU/mL (0.358-3.74); Triglycerides 144 mg/dL; Very Low Density Lipoprotein 29 mg/dL (5-40)
[2020-10-27 10:04] LABS: Color, Urine Yellow (Yellow); Glucose, Dipstick Normal (Normal); Ketone-Dipstick Negative (Negative); Leukocyte Esterase-Dipstick 500 /ul (Negative); Nitrite-Dipstick Negative (Negative); Occult Blood-Urine Negative /ul (Negative); Protein-Dipstick 15 mg/dl (Negative); Urine Clarity Clear (Clear); Urine Urobilinogen Normal (Normal)
[2020-10-27 10:10] LABS: Urine Bilirubin Dipstick 1 mg/dL (Negative)
[2020-10-27 10:17] LABS: Bacteria 2+ /hpf (None Seen); Squamous Epithelial Cells - UA 10-25 SEEN /hpf (5-10); White Blood Cells 10-25 SEEN /hpf (0-5)
[2020-10-27 11:36] LABS: Microalbumin,Random Urine 23.3 mg/L (NO RANGE EST.); Microalbumin:Creatinine Ratio 9.4 mg/g CRE (<30 mg/g CRE)
== END ==
PROVIDERS: PCP Internal Medicine; Referring Provider Internal Medicine; Visit Provider Internal Medicine
DX: E11.9 Type 2 diabetes mellitus without complications (principal); E55.9 Vitamin D deficiency, unspecified
CPT/HCPCS: 36415; 80053; 80061; 81001; 82043; 82306; 82570; 84443; 85025

== ENCOUNTER 2020-11-28 04:50 | Emergency (ER) | payer MEDICARE, SELFPAY ==
[2020-11-28 04:52] VITALS: TEMP 36.2; BMI 36.6
[2020-11-28 04:53] VITALS: BP 152/70; PULSE 81; RESP 12; O2SAT 98
--- NOTE | 2020-11-28 04:55 | EKG12_ITS ---
Test Reason : CHEST PAIN Blood Pressure : / mmHG Vent. Rate : 074 BPM Atrial Rate : 074 BPM P-R Int : 156 ms QRS Dur : 084 ms QT Int : 410 ms P-R-T Axes : 047 039 029 degrees QTc Int : 455 ms Normal sinus rhythm Normal ECG Confirmed by MIGNON SALVADOR, MARIALUISA ([id number]), video editor JELANI ALICEA ([id number]) on 11/29/2020 9:15:26 AM Referred By: LAYNE Confirmed By:MARIALUISA CROW MD
--- NOTE | 2020-11-28 05:05 | RAD_ITS ---
STUDY: X-RAY CHEST REASON FOR EXAM: Female, 70 years old. Chest pain TECHNIQUE: Single AP portable view of the chest. COMPARISON: 05/30/2020 chest x-ray FINDINGS: The lungs are clear and expanded. There is no demonstrated pleural abnormality. There is borderline cardiomegaly. Normal mediastinum and marian. Normal visualized pulmonary arteries. There is atherosclerotic calcification of the aortic arch with tortuosity. There are diffuse degenerative changes of the visualized thoracic spine. Normal visualized ribs, clavicles, and shoulders. There is no demonstrated abnormality of the visualized soft tissue structures of the upper abdomen. RAD/Chest 1 View (Portable) IMPRESSION: Degenerative changes, as described above. No demonstrated acute cardiopulmonary process. Electronically Signed: Kat Osullivan MD at 5:52 EDT Tel , Service support ,
[2020-11-28 05:06] LABS: Absolute Lymphocyte Count 2.13 X10^3/uL (0.83-4.51); Absolute Neutrophil Count 6.3 X10^3/uL (2.0-7.7); Basophil# 0.07 X10^3/uL; Basophil% 0.8 % (0-1); Hematocrit 29.4 % (37-47); Hemoglobin 8.8 g/dL (12.0-15.0); Lymphocyte # 2.13 X10^3/ul (0.83-4.51); Lymphocyte % 23.5 % (19-41); Mean Corp Hgb Conc 29.9 g/dL (32-36); Mean Corpuscular Hgb 25.7 pg (27.0-32.0); Mean Platelet Vol. 11.5 fl (6.2-12.0); Monocyte# 0.49 X10^3/uL; Monocyte% 5.4 % (0-10); NRBC Flagged by Analyzer 0 % (0-5); Neutrophil # 6.25 X10^3/uL (2.7-7.7); Neutrophil % 68.9 % (47-70); Platelet Count 420 K/mm3 (150-450); RBC Distribution Width CV 19.6 % (11.6-14.6); RBC Distribution Width SD 61.1 fl (35.1-43.9); Red Blood Count 3.42 M/mm3 (4.2-5.4); White Blood Count 9.1 K/mm3 (4.4-11.0)
--- NOTE | 2020-11-28 05:09 | EDS_ITS ---
HPI History of Present Illness Chief Complaint: General Illness Narrative Narrative: 70-year-old female presenting with chest tightness which she describes as retrosternal which she rates it as 2-3 level which has been present since 1130 last evening. Patient states she is also feeling a little bit short of breath. She states he has a history of lung cancer states that she is on alectinib. She denies history of DVT/PE. She states she has a distant history of smoking but no longer smokes. She denies fever, chills, cough, myalgias, change in taste or smell. [facility] Medical History Metastatic lung carcinoma Home Medications metformin 500 mg PO TIDCM 01/27/15 [History Last Taken Unknown] albuterol sulfate [Proair Respiclick] 2 puff INHALATION Q6H PRN PRN 03/03/18 [History Last Taken Unknown] alectinib [Alecensa] 2 cap PO BID 03/03/18 [History Last Taken Unknown] metoprolol succinate [Toprol Xl] 25 mg PO DAILY 03/03/18 [History Last Taken Unknown] tizanidine 4 mg PO QHS PRN PRN 03/03/18 [History Last Taken Unknown] allopurinol 300 mg PO DAILY 11/28/20 [History Last Taken Unknown] omeprazole 20 mg PO DAILY 11/28/20 [History Last Taken Unknown] Allergy/AdvReac Type Severity Reaction Status Date / Time codeine AdvReac Severe hyper Verified 03/03/18 10:38 choline fenofibrate AdvReac Intermediate Pain in Verified 03/03/18 10:38 [From Trilipix] joints fenofibrate [From Tricor] AdvReac Intermediate muscle pain Verified 03/03/18 10:38 Surgical History History of cholecystectomy Social History Smoking Status: Former smoker ROS ROS ED Constitutional Constitutional ED: Denies chills or fever(s) Eyes Eyes: Denies blurry vision or diplopia ENT ENT ED: Denies rhinorrhea or sore throat Cardiovascular Cardiovascular: Reports chest pain; Denies palpitations or racing heartbeat Respiratory/Chest Respiratory/Chest: Reports dyspnea; Denies sputum Gastrointestinal Gastrointestinal: Denies abdominal pain, nausea or vomiting Genitourinary Genitourinary ED: Denies dysuria or hematuria Musculoskeletal Musculoskeletal: Denies arthralgias, back pain, myalgias or neck pain Integumentary Denies abscess or rash Neurologic Neurologic: Denies headache(s) or paresthesias EXAM Physical Exam Const Vital Signs: 11/28/20 04:52 11/28/20 04:53 11/28/20 04:57 Temperature 97.1 F L Temperature Source Temporal Pulse Rate 81 Respiratory Rate 12 Respiratory Pattern Normal Blood Pressure 152/70 H Blood Pressure Mean 97 Pulse Ox 98 Oxygen Delivery Method Room Air Room Air 11/28/20 06:59 Temperature Temperature Source Pulse Rate 70 Respiratory Rate 15 Respiratory Pattern Blood Pressure 120/61 Blood Pressure Mean 80 Pulse Ox 95 Oxygen Delivery Method Positive well nourished General Appearance ED: NAD HEENT Reports moist mucous membranes Negative for trauma Eyes PERRL and EOMs intact bilaterally General Eye ED: Negative for pale conjunctiva or scleral icterus Chest Wall inspection of chest normal and palpation of chest normal Resp normal respiratory effort and clear to auscultation bilaterally Cardio regular rate and regular rhythm Extremity normal to inspection General Extremety ED: Negative for edema or tenderness General Extremity: Negative for edema Neuro oriented x3 and CN's II-XII intact bilaterally Sensorium / Orientation: alert Psych mental status grossly normal Skin no rashes or lesions noted and no wounds MDM MDM MDM Narrative Medical decision making narrative: Patient presenting with mild chest pain which she rates at a 2/3 for about 5 hours prior to arrival. She also has some mild dyspnea. She states when she tries to fall asleep she feels like something is catching. Denies any symptoms of fever, chills. Patient had EKG which on my interpretation shows a sinus rhythm with a ventricular rate of 74 bpm without signs of ischemic changes. Chest x-ray on my interpretation shows no acute cardiopulmonary process and the radiologist does agree. Patient's blood work today is fairly unremarkable. She has no leukocytosis. Her hemoglobin is baseline. Platelets are 420. Renal function appears normal. Potassium slightly decreased at 3.3. Initial troponin is 7.1. BNP is 53.8. D-dimer was elevated and patient had CTA of the chest which did not identify any acute cardiopulmonary process, PE, dissection. Patient second high-sensitivity troponin had not significantly changed. Given the patient has now had pain for 7 to 8 hours with 2 - troponins and a negative CTA of the chest I believe she is safe to be discharged home. Patient will follow up with her PCP to ensure resolution. Patient is discharged home in stable condition. She is given return precautions. Impression: 1. Dyspnea 2. Chest pain Lab Data Attestation: I reviewed the patient's lab results. Labs: Laboratory Results - last 24 hr 11/28/20 11/28/20 11/28/20 04:41 04:41 04:41 WBC 9.1 RBC 3.42 L Hgb 8.8 L Hct 29.4 L MCV 86.0 MCH 25.7 L MCHC 29.9 L RDW Std Deviation 61.1 H RDW Coeff of Chema 19.6 H Plt Count 420 MPV 11.5 Immature Gran % (Auto) 1.400 H Neut % (Auto) 68.9 Lymph % (Auto) 23.5 Mathews % (Auto) 5.4 Eos % (Auto) 0.0 Baso % (Auto) 0.8 Absolute Neuts (auto) 6.3 Absolute Lymphs (auto) 2.13 Nucleated RBC % 0 D-Dimer Quant (PE/DVT) Sodium 138 Potassium 3.3 L Chloride 105 Carbon Dioxide 23.0 Anion Gap 10 BUN 18 Creatinine 0.92 Estim Creat Clear Calc 69.37 Est GFR (MDRD) Af Amer 77 Est GFR (MDRD) Non-Af 64 BUN/Creatinine Ratio 19.6 Glucose 156 H Calcium 9.1 Troponin I High Sens 7.1 B-Natriuretic Peptide 53.8 Urine Color Urine Clarity Urine pH Ur Specific [place] Urine Protein Urine Glucose (UA) Urine Ketones Urine Occult Blood Urine Nitrite Urine Bilirubin Urine Urobilinogen Ur Leukocyte Esterase Urine RBC Urine WBC Ur Squamous Epith Cells Urine Bacteria Urine Mucus 11/28/20 11/28/20 11/28/20 04:57 06:30 06:35 WBC RBC Hgb Hct MCV MCH MCHC RDW Std Deviation RDW Coeff of Chema Plt Count MPV Immature Gran % (Auto) Neut % (Auto) Lymph % (Auto) Mathews % (Auto) Eos % (Auto) Baso % (Auto) Absolute Neuts (auto) Absolute Lymphs (auto) Nucleated RBC % D-Dimer Quant (PE/DVT) 2.44 H* Sodium Potassium Chloride Carbon Dioxide Anion Gap BUN Creatinine Estim Creat Clear Calc Est GFR (MDRD) Af Amer Est GFR (MDRD) Non-Af BUN/Creatinine Ratio Glucose Calcium Troponin I High Sens 9.3 B-Natriuretic Peptide Urine Color Yellow Urine Clarity Clear Urine pH 6.5 Ur Specific [place] 1.010 Urine Protein Negative Urine Glucose (UA) Normal Urine Ketones Negative Urine Occult Blood Negative Urine Nitrite Negative Urine Bilirubin Negative Urine Urobilinogen Normal Ur Leukocyte Esterase 100 H Urine RBC 0 SEEN Urine WBC 0-5 SEEN Ur Squamous Epith Cells 5-10 SEEN Urine Bacteria 0 SEEN Urine Mucus 0 SEEN Radiography Diagnostic Testing: Radiology Impression Chest X-Ray 11/28/20 05:05 IMPRESSION: Degenerative changes, as described above. No demonstrated acute cardiopulmonary process. Electronically Signed: Kat Osullivan MD at 5:52 EDT Tel , Service support , Chest CTA 11/28/20 05:39 IMPRESSION: No Pulmonary embolism or dissection. Minimal emphysematous blebs within the lungs otherwise no visualized focal infiltrate. Electronically Signed: Kat Osullivan MD at 6:25 EDT Tel , Service support , Discharge Plan Triage Chief Complaint: General Illness ED Provider: Rohit Luke Dx/Rx/DC Orders Instructions: ED Chest Pain, Noncardiac, ED Dyspnea Prescriptions: No Action metformin 500 MG tablet 500 mg PO TIDCM RF: 0 tizanidine 4 MG tablet 4 mg PO QHS PRN PRN (Reason: Sleep) RF: 0 metoprolol succinate [Toprol XL] 25 MG tablet extended release 24 hr 25 mg PO DAILY RF: 0 albuterol sulfate [ProAir RespiClick] 90 MCG Aer.Pow.Ba 2 puff inhalation Q6H PRN PRN (Reason: Sob &/Or Wheezing) RF: 0 Alecensa 150 MG capsule 2 cap PO BID RF: 0 omeprazole 20 mg capsule,delayed release(DR/EC) 20 mg PO DAILY RF: 0 allopurinol 300 mg tablet 300 mg PO DAILY RF: 0 Primary Care Provider: Katie Fernández Referrals: Katie Fernández DO [Primary Care Provider] - Disposition Disposition: Home, Self Care
[2020-11-28 05:26] LABS: Anion Gap 10 (5-15); BUN 18 mg/dL (7-18); BUN/Creat Ratio 19.6 RATIO (10-20); Calcium,Total 9.1 mg/dL (8.5-10.1); Chloride 105 mmol/L (98-107); Creatinine, Serum 0.92 mg/dL (0.55-1.02); EST Glomerular Filtration Rate 64 mL/min (>60); Est Glom Filt Rate - Afr Amer 77 mL/min (>60); Estimated Creatinine Clearance 69.37 ml/min; Glucose 156 mg/dL (74-106); Potassium 3.3 mmol/L (3.5-5.1); Sodium Level 138 mmol/L (136-145); Troponin-I HS 7.1 pg/mL (3.0-53.7)
[2020-11-28 05:32] LABS: BNP,B-Type NATRIURETIC PEPTIDE 53.8 pg/mL (0-100)
[2020-11-28 05:38] LABS: D-Dimer Quantitative (DVT/PE) 2.44 FEU/ug/m (0.27-0.49)
--- NOTE | 2020-11-28 05:39 | CT_ITS ---
STUDY: CTA CHEST REASON FOR EXAM: Female, 70 years old. Chest pain RADIATION DOSAGE (If Supplied By Facility): CTDIvol = ( 13.83 ) mGy, DLP = ( 417.41 ) mGycm TECHNIQUE: The examination was performed with the intravenous administration of IV 100mL Isovue-370. Post-processing of the angiographic images was performed, with multiplanar reformation and 3D reconstruction. Individualized dose optimization techniques were used for this CT. COMPARISON: November 28, 2020 chest x-ray FINDINGS: Normal enhancement of the main pulmonary artery and right and left pulmonary arteries. Normal enhancement of the bilateral peripheral pulmonary arteries. There is no demonstrated pulmonary embolism. Normal thoracic aorta and visualized great vessels. There is no demonstrated aortic dissection. Normal heart and pericardium. Normal mediastinum. Normal hilar regions. Normal visualized trachea and bronchi. There few scattered emphysematous blebs. There is no focal consolidation. Normal pulmonary parenchyma. Normal pleura. Normal chest wall structures. There are degenerative changes of thoracic spine. There is a minimal hiatal hernia. CT/CTA Chest W/WO Contrast IMPRESSION: No Pulmonary embolism or dissection. Minimal emphysematous blebs within the lungs otherwise no visualized focal infiltrate. Electronically Signed: Kat Osullivan MD at 6:25 EDT Tel , Service support ,
[2020-11-28 06:40] LABS: Bacteria 0 SEEN /hpf (None Seen); Mucous, Urine 0 SEEN /hpf (<or=2+); Red Blood Cells-Urine 0 SEEN /hpf (0-5)
[2020-11-28 06:42] LABS: Color, Urine Yellow (Yellow); Glucose, Dipstick Normal (Normal); Ketone-Dipstick Negative (Negative); Leukocyte Esterase-Dipstick 100 /ul (Negative); Nitrite-Dipstick Negative (Negative); Occult Blood-Urine Negative /ul (Negative); Protein-Dipstick Negative (Negative); Urine Bilirubin Dipstick Negative (Negative); Urine Clarity Clear (Clear); Urine Urobilinogen Normal (Normal); Urine pH 6.5 (5.0 - 8.0)
[2020-11-28 06:59] VITALS: BP 120/61; PULSE 70; RESP 15; O2SAT 95
[2020-11-28 07:01] LABS: Troponin-I HS 9.3 pg/mL (3.0-53.7)
[2020-11-28 07:01] LABS: Squamous Epithelial Cells - UA 5-10 SEEN /hpf (5-10); White Blood Cells 0-5 SEEN /hpf (0-5)
[2020-11-28 07:11] VITALS: BP 120/61; PULSE 77; RESP 20; O2SAT 97
== END 2020-11-28 07:13 | disposition home or self-care (01) ==
PROVIDERS: Emergency Provider Student in an Organized Health Care Education/Training Program; PCP Internal Medicine
DX: R07.89 Other chest pain (principal); R06.00 Dyspnea, unspecified; C34.90 Malignant neoplasm of unspecified part of unspecified bronchus or lung; Z87.891 Personal history of nicotine dependence
CPT/HCPCS: 71045; 71275; 80048; 81001; 83880; 84484; 85025; 85379; 93005; 99285; Q9967; A4216

== ENCOUNTER → 2021-01-06 12:46 | Outpatient (CLI) | payer MEDICARE, SELFPAY ==
--- NOTE | 2021-01-06 13:41 | BI_ITS ---
MAMMOGRAPHY - BILATERAL SCREENING REASON FOR EXAM: Female, 70 years old. Routine annual screening examination. PERTINENT HISTORY: Mother with breast cancer. Aunt with breast cancer. Prior right breast biopsy. TECHNIQUE: Digital bilateral breast hemanth (3D mammographic acquisition) in the CC and MLO projections. 2-D mediolateral oblique (MLO) and craniocaudad (CC) views of both breasts were obtained. CAD: Full Field Digital Mammography with Computer Added Detection was performed. COMPARISON: Comparison is made with prior study 12/14/2019 and 12/07/2018. FINDINGS: Breast Composition: There are scattered areas of fibroglandular density. There are no dominant masses or suspicious calcifications. Stable small benign-appearing bilateral axillary lymph. Mild degree of residual architectural distortion in the upper slightly lateral aspect of the right breast and compared with prior excisional breast biopsy. No other significant abnormalities are identified. There has been no significant change since the prior study. BI/SCRN MAMM (CAD)W/HEMANTH BILAT IMPRESSION: Stable bilateral screening mammogram. Yearly follow-up mammogram recommended. (A) ASSESSMENT CATEGORY: BIRADS Category 2: Benign. A letter regarding these results will be sent to the patient by the facility within 30 days. Approximately 10% of breast cancers are not detected by mammography. A normal mammogram should not delay biopsy of a clinically suspicious abnormality. [id number] Electronically Signed: Riccardo Vazquez MD at 14:35 EDT , Service support ,
== END ==
PROVIDERS: PCP Internal Medicine; Referring Provider Internal Medicine; Visit Provider Internal Medicine
DX: Z12.31 Encounter for screening mammogram for malignant neoplasm of breast (principal)
CPT/HCPCS: 77063; 77067

== ENCOUNTER → 2021-02-17 12:31 | Outpatient (CLI) | payer MEDICARE, SELFPAY ==
--- NOTE | 2021-02-17 12:32 | MRI_ITS ---
STUDY: MRI RIGHT KNEE REASON FOR EXAM: Female, 70 years old. Pain, injury TECHNIQUE: Standardized fat and water weighted pulse sequences were obtained in all 3 orthogonal planes. COMPARISON: None. FINDINGS: The body of the medial meniscus is completely torn. Mild thinning and intrasubstance signal is present in the posterior horn. Normal anterior horn. There is diffuse, full thickness articular cartilage loss of the medial femorotibial compartment. There is moderate reactive marrow edema of the medial femoral condyle and tibial plateau. Normal medial collateral ligamentous complex (MCL). Normal distal semimembranosus, gracilis and semitendinosus tendons. Normal lateral meniscus. Normal hyaline cartilage of the lateral femorotibial compartment. Normal lateral femoral condyle and tibial plateau. Normal proximal tibiofibular articulation. Normal lateral collateral (fibular) ligament. Normal popliteus tendon. Normal biceps femoris tendon. Normal anterior cruciate ligament (ACL). Normal posterior cruciate ligament (PCL). Normal congruent patellofemoral articulation. There is diffuse, moderate to full thickness articular cartilage loss of the patellofemoral compartment. Moderate subchondral cystic changes are also present in the medial patella facet and ridge. Normal medial and lateral patellar retinaculum. Normal quadriceps tendon. Normal patellar tendon. Normal Hoffa''s fat pad. Small joint effusion noted. Mild to moderate subcutaneous edema is present in the anterior aspect of the knee joint. MRI/Lower Ext Joint Only (Routine) IMPRESSION: 1. Complete tear of the body of the medial meniscus 2. Full-thickness cartilage loss in the medial compartment 3. Small joint effusion. Electronically Signed: Arnulfo Watkins MD at 16:21 EDT , Service support ,
== END ==
PROVIDERS: PCP Internal Medicine; Referring Provider Orthopaedic Surgery; Visit Provider Orthopaedic Surgery
DX: M23.91 Unspecified internal derangement of right knee (principal)
CPT/HCPCS: 73721

== ENCOUNTER 2021-03-07 10:44 | Outpatient (CLI) | payer MEDICARE, SELFPAY ==
[2021-03-07] MEDS: 0.9% Saline Lock 10 ML Syringe IV (11:01)
[2021-03-07 11:15] VITALS: BP 141/56; PULSE 84; RESP 16; TEMP 36.9; O2SAT 97; BMI 33.2
[2021-03-07 12:15] VITALS: BP 116/59; PULSE 75; RESP 16; TEMP 37.3; O2SAT 98
[2021-03-07 12:50] VITALS: BP 110/52; PULSE 67; RESP 16; TEMP 36.8; O2SAT 95
== END 2021-03-07 13:03 | disposition home or self-care (01) ==
LOC: MS3OUT 10:44 → MS3 10:45
PROVIDERS: PCP Internal Medicine; Referring Provider Nurse Practitioner Adult Health; Visit Provider Nurse Practitioner Adult Health
DX: Z23 Encounter for immunization (principal); U07.1 COVID-19
CPT/HCPCS: J7050; M0245; Q0245; A4216

== ENCOUNTER → 2021-03-28 16:14 | Outpatient (CLI) | payer MEDICARE, SELFPAY | PROVIDERS: PCP Internal Medicine; Visit Provider Internal Medicine Endocrinology, Diabetes & Metabolism | DX: R94.6 Abnormal results of thyroid function studies (principal) | CPT/HCPCS: 36415 ==

== ENCOUNTER → 2021-04-04 16:50 | Outpatient (CLI) | payer MEDICARE, SELFPAY ==
--- NOTE | 2021-04-04 16:57 | CT_ITS ---
STUDY: CT RIGHT LOWER EXTREMITY WITHOUT CONTRAST REASON FOR EXAM: Right knee osteoarthritis, surgical planning. TECHNIQUE: Transaxial CT imaging of the knee was performed. Coronal and sagittal images were reformatted. Individualized dose optimization techniques were used for this CT. COMPARISON: MRI images 02/17/2021. FINDINGS: Knee: There is chondral loss of the medial femoral condyle, subchondral eburnation and subchondral cystic change (coronal reconstructions 28-36). There is preservation of joint space of the lateral femorotibial compartment. There is joint space narrowing of the lateral patellofemoral compartment (axial image 185). Normal proximal tibiofibular articulation. There is a joint effusion. The quadriceps tendon is grossly normal. The patellar tendon is grossly normal. Normal Hoffa''s fat pad. There is chondrocalcinosis in the menisci. Hip: There is mild joint space narrowing of the right hip. There is chondrocalcinosis of the right hip and pubic symphysis. There is mild vascular calcification. Ankle: There is a small osteochondral lesion of the medial talar dome (coronal reconstructions 18, 19). Normal posterior subtalar, calcaneocuboid and talonavicular articulations. CT/Extremity Lower without Contra IMPRESSION: Right knee osteoarthritis. Electronically Signed: Brian Mulatni MD at 14:51 EST Tel , Service support ,
== END ==
PROVIDERS: PCP Internal Medicine; Referring Provider Orthopaedic Surgery; Visit Provider Orthopaedic Surgery
DX: M17.11 Unilateral primary osteoarthritis, right knee (principal)
CPT/HCPCS: 73700

== ENCOUNTER 2021-04-25 19:34 | Inpatient (IN) | payer MEDICARE, SELFPAY ==
[2021-04-06 09:08] LABS: Absolute Lymphocyte Count 2.24 X10^3/uL (0.83-4.51); Absolute Neutrophil Count 5.3 X10^3/uL (2.0-7.7); Basophil% 1.2 % (0-1); Hematocrit 34.5 % (37-47); Lymphocyte # 2.24 X10^3/ul (0.83-4.51); Lymphocyte % 27.5 % (19-41); Mean Corp Hgb Conc 31.9 g/dL (32-36); Mean Corpuscular Hgb 29.3 pg (27.0-32.0); Mean Corpuscular Volume 91.8 fL (81-99); Mean Platelet Vol. 11.2 fl (6.2-12.0); Monocyte% 6.1 % (0-10); NRBC Flagged by Analyzer 0 % (0-5); Neutrophil # 5.27 X10^3/uL (2.7-7.7); Neutrophil % 64.6 % (47-70); Platelet Count 327 K/mm3 (150-450); RBC Distribution Width CV 18.4 % (11.6-14.6); RBC Distribution Width SD 61.1 fl (35.1-43.9); Red Blood Count 3.76 M/mm3 (4.2-5.4); White Blood Count 8.2 K/mm3 (4.4-11.0)
[2021-04-06 09:15] LABS: International Normalized Ratio 0.9; Partial Thromboplast Time 26.6 Seconds (24.1-36.2); Prothrombin Time (Protime)PT. 11.1 SECONDS (11.7-14.9)
[2021-04-06 09:25] LABS: Anion Gap 10 (5-15); BUN 13 mg/dL (7-18); BUN/Creat Ratio 14.2 RATIO (10-20); Chloride 107 mmol/L (98-107); Creatinine, Serum 0.92 mg/dL (0.55-1.02); EST Glomerular Filtration Rate 64 mL/min (>60); Est Glom Filt Rate - Afr Amer 78 mL/min (>60); Glucose 101 mg/dL (74-106); Magnesium 2.1 mg/dL (1.6-2.6); Potassium 3.9 mmol/L (3.5-5.1); Sodium Level 141 mmol/L (136-145)
[2021-04-06 09:34] LABS: Hemoglobin A1c 5.5 % (3.8-5.6)
[2021-04-07 20:37] LABS: Fructosamine 224 umol/L (0-285)
[2021-04-25] VITALS (12 sets, daily range): BP systolic 93–127; BP diastolic 53–69; PULSE 77–94; RESP 16–18; TEMP 36–36.5; O2SAT 92–100; BMI 32.9; BMI 35.3
[2021-04-25] MEDS: Scopolamine 1mg/72hr Patch 1 PATCH TD (09:23)
[2021-04-25] MEDS: Insulin Lispro 100 UNIT/ML INSULN.PEN SC ×2 (09:25→20:34)
[2021-04-25] MEDS: Gabapentin 600 MG Tablet PO (09:25)
[2021-04-25] MEDS: Acetaminophen 500 MG Tablet 1000 MG PO ×2 (09:25→20:28)
[2021-04-25] MEDS: Lactated Ringers 1,000 ML 15 ML IV ×2 (09:26→11:31)
[2021-04-25 09:31] LABS: Bedside Glucose 272 mg/dL (70-110)
--- NOTE | 2021-04-25 10:12 | PCM.HP.BLA ---
History and Physical Date of Admission: 04/25/21 [id number]:[id number]: LISETTE CRISOSTOMO [facility] #:[id number]:[id number] Provider:Dr. Rafael Meyers DOAge/Sex: 70/F [facility] [place]Signed with Addenda ADDENDUM by Dr. Rafael Meyers DO on 02/20/21 at 1333 Assessment and Plan Assessment and Plan (1) Right knee DJD: Status: Acute Plan: Patient will need to be admitted secondary to living alone and living in a two-story home she would not feel safe being alone. She is requesting rehab following acute hospital stay which I think is appropriate. 02/20/21 1333<Electronically signed by Rafael Meyers DO>Date Rafael Meyers DO cc: Dr. Katie Fernández DO ~*Signed Intake Intake Visit Reasons: RIGHT KNEE Allergies codeine Adverse Reaction (Severe, Verified 03/03/18 10:38) hyper choline fenofibrate [From Trilipix] Adverse Reaction (Intermediate, Verified 03/03/18 10:38) Pain in joints fenofibrate [From Tricor] Adverse Reaction (Intermediate, Verified 03/03/18 10:38) muscle pain Medications metformin 500 mg PO TIDCM 01/27/15 [History Confirmed 02/20/21] albuterol sulfate [Proair Respiclick] 2 puff INHALATION Q6H PRN PRN 03/03/18 [History Confirmed 02/20/21] alectinib [Alecensa] 2 cap PO BID 03/03/18 [History Confirmed 02/20/21] metoprolol succinate [Toprol Xl] 25 mg PO DAILY 03/03/18 [History Confirmed 02/20/21] allopurinol 300 mg PO DAILY 11/28/20 [History Confirmed 02/20/21] omeprazole 20 mg PO DAILY 11/28/20 [History Confirmed 02/20/21] PFSH Medical History (Updated 02/20/21 @ 10:[address] Rafael Meyers DO) Abnormal laboratory test Metastatic lung carcinoma Surgical History (Updated 02/01/21 @ 10:30 by Xena Cochran) History of cholecystectomy Hx of lumpectomy Social History Smoking Status: Former smoker HPI RIGHT KNEE Details: Parts of this documentation were recorded by a scribe, this documentation accurately reflects the service provided and the decisions made by me, Dr. Rafael Meyers DO 02/20/21 2599. LISETTE CRISOSTOMO is a 70 year old F here today for F/U on right knee after having MRI of the right knee. Patient continues to have all medial sided knee pain. She states this pain is only when she walks on the knee or WBs. Denies numbness, tingling or other associated symptoms. She completed PT, 2 steroid injections, and viscosupplementation without relief. Her last steroid injection was mid November and this did not help at all. ROS Musc Reports joint swelling, Reports limited range of motion, Denies numbness, Denies radiating pain into limb, Reports stiffness and Denies tingling Neuro No numbness and No tingling Ortho Exam General General: Yes no acute distress Neurologic: Yes alert and Yes oriented x3 Psychologic: Yes reasonable and appropriate Right Knee Skin/Wound: No erythema, No ecchymosis and No swelling Knee ROM: Yes ROM-Extension -20 to 0 and No ROM-Flexion 0-140 (115) Stability: NML: Anterior Drawer, NML: Posterior Drawer and NML: Varus 30 and 1+: Valgus 30 (4mm medial gapping d/t joint space narrowing) Patella Translation: 1 Patella Grind: Yes Left Knee Patella Translation: 1 Supplemental Info 02/17/2021 MRI right knee tear of the body of the medial meniscus full-thickness cartilage loss in the medial and patellofemoral compartment diffusely Coding Level of Care Code Off vis,est,level 3 Diagnoses Right knee DJD M17.11 Assessment and Plan Assessment and Plan (1) Right knee DJD: Status: Acute Plan - Dr. Rafael Meyers, DO: Personally reviewed patients MRI of the right knee. Patient educated that she does have a medial meniscus tear but she also has severe OA of the right knee which was seen on the MRI but not on xray. Educated that it appears that the meniscus tear is more of a degenerative tear. Educated that her treatment options are do nothing or extension edger bracing or PT or steroid injection or as a surgical option this would be a right TKA. Risks, benefits and alternatives of surgery reviewed including but not limited to bleeding, infection, nerve, artery and/or tissue damage, fracture, VTE, mechanical feel of the knee, continued pain, stiffness and expected post-operative course. She will be on blood thinner for 2 weeks post op and will have DARIUS hose post op to aid in prevention of blood clot. SHe will also need PT after surgery. She will also need a CT prior to surgery to map out the knee prior to surgery. Educated that she can have a 3 month recovery from the TKA and she will continue to improve for up to a year post op. Also educated the patient on the IOVERA treatment for the knee and she wishes to have the treatment if it is covered by insurance. She wishes to further discuss her options with her family and will call the office if she wishes to proceed with surgery. If she does IOVERA she can sign consent the day of treatment or she can sign consent the day of surgery. We will also need a medial clearance from her oncologist and will need directions for the oral chemotherapy that she takes. Follow up for IOVERA treatment or to sign consent or sooner if pain, swelling, numbness or associated symptoms, or concerns develop. All questions answered. Patient in agreement of plan. 02/20/21 1100<Electronically signed by Rafael Meyers DO>Date Rafael Meyers DO I have re-examined the patient. There are no clinical changes since date of exam
--- NOTE | 2021-04-25 10:22 | SUR.PREOP ---
PT TAKEN TO PACU PREOP FOR NERVE BLOCK, VERSED WENT WITH PT AND WAS GIVEN TO ASSISTANT SPA MANAGER BRADLEY.
--- NOTE | 2021-04-25 11:00 | KNEE_PTH ---
PATIENT: LISETTE CRISOSTOMO LOC: MS2 U#:[id number] AGE/SX: 70/F ROOM: [facility] [place]19 RE04/25/[address]: Dr. Geoff Bobby DO : 1950 BED: 1 DIS: 04/27/2021 SPEC #: [id number] RECD: 04/25/21 14:53 STATUS: ROMÁN REQ #: [id number] GIANCARLO: 04/25/21 11:[address]: Rafael Meyers DEPT: SURGICAL PATHOLOGY RECD BY: Jillian Augustine ENTERED: 04/26/21 09:26 SP TYPE: TOTAL KNEE OTHR DR: MD Dr. Marcin Henderson MD Dr. Joseph Borruso, DO Dr. Kathleen Fearon, DO Dr. Mark Tereletsky, DO Tissues: Knee, NOS Procedures: Decalcification bone/plaque Surgery Specimen Level IV Comments: @ Ordering doctor for DEC edited from to @ by AUBREE at 04/26/21926 @ Ordering doctor for SUIV edited from to @ by AUBREE at 04/26/21926 @ Submitting doctor edited from to DR.JBORRU Raza MAK at 04/26/21926 HEADER OPERATION: ERAS, total knee replacement robotic arm assist PRE-OP DIAGNOSIS: Right total knee with Barry TISSUE SUBMITTED: Bone and soft tissue of right knee MICROSCOPIC DIAGNOSIS Bone and soft tissue, right knee, total knee replacement/resection: Pieces of bone with degenerative osteoarthritic changes. ANTONIA:lars 05/01/2021 MICROSCOPIC DESCRIPTION Slides are reviewed. GROSS DESCRIPTION Received is one container designated bone and soft tissue right knee. The specimen consists of multiple fragments of [place]-yellow bone measuring in aggregate 9 x 8 x 2 cm. No soft tissue is identified. A number of bony fragments contain articular surfaces consistent with tibial plateau and femoral condyle and displaying prominent osteophyte formation, eburnation, and bone erosion. Catering Attendant sections are submitted in two cassettes after decalcification. / Mukul 04/26/2021 TC:5 CPT: 98062, 71745
[2021-04-25] MEDS: dexAMETHasone 10 MG/ML Vial IV (11:20)
[2021-04-25] MEDS: Epinephrine (1 mg/ml) 1 MG/ML VIAL (12:35)
[2021-04-25] MEDS: Bupivacaine Mpf 0.5% 30 ML VIAL (12:35)
[2021-04-25] MEDS: Betamethasone/Betamethasone 30 MG/5 ML Vial (12:35)
[2021-04-25 13:45] LABS: Bedside Glucose 143 mg/dL (70-110)
--- NOTE | 2021-04-25 13:45 | RAD_ITS ---
STUDY: X-RAY - RIGHT KNEE REASON FOR EXAM: Female, 70 years old. Post op -- AP and Lateral xray of operative knee in PACU TECHNIQUE: 2 view(s) of the knee. COMPARISON: None. FINDINGS: Normal visualized distal femur. Normal visualized proximal tibia and fibula. Normal proximal tibiofibular articulation. The patient is status post total knee replacement. There is good alignment. Postoperative soft tissue changes. RAD/Knee 1 or 2 Views IMPRESSION: Status post total knee replacement. There is good alignment. Postoperative soft tissue swelling. Electronically Signed: Riccardo Vazquez MD at 14:17 EST , Service support ,
[2021-04-25] MEDS: Lactated Ringers 1,000 ML 125 ML IV (15:01)
[2021-04-25] MEDS: Cefazolin 1 GM/50 ML BAG IV ×2 (15:06→22:56)
--- NOTE | 2021-04-25 19:00 | PCS.PANDOC ---
PANDEMIC DOCUMENTATION INITIATED: Date: 11/28/2020 Time: 190 Emergency documentation initiated 04/25/21 @ 1900
--- NOTE | 2021-04-25 19:25 | PN.HOSP_ITS ---
Subjective Subjective Patient with no complaints postoperatively with block still in place. She does have some sensation and can move the right lower extremity but pain controlled. Patient denies fevers, chills, nausea, emesis, abdominal pain, chest pain or dyspnea. Objective Data Objective Data Vital Signs: Vital Signs Temp Pulse Resp BP Pulse Ox 97.4 F L 77 16 110/58 L 94 04/25/21 16:31 04/25/21 16:31 04/25/21 16:31 04/25/21 16:31 04/25/21 16:31 Oxygen Flow Rate (L/min) 4 Oxygen Delivery Method Room Air Weight: 157 lb 10.088 oz Body Mass Index (BMI) 32.9 Intake & Output: Intake and Output for Last 24 Hours 04/23/21 04/24/21 04/25/21 23:59 23:59 23:59 Intake Total 2484.5 / 2484.5 Balance 2484.5 / 2484.5 Lab / Micro Data Result Diagrams: 04/06/21 08:39 04/06/21 08:38 Labs: Laboratory Results - last 24 hr 04/25/21 09:10: POC Glucose 272 H 04/25/21 13:40: POC Glucose 143 H Micro: Microbiology 04/06/21 08:39 Swab (Method) Nasal Screen MRSA/MSSA - Final Radiography Diagnostic Testing: Radiology Impression Knee X-Ray 04/25/21 13:45 IMPRESSION: Status post total knee replacement. There is good alignment. Postoperative soft tissue swelling. Electronically Signed: Riccardo Vazquez MD at 14:17 EST , Service support , Physical Exam Narrative Physical Examination: General: Awake, alert, oriented x 3 and cooperative, seated upright in medical surgical bed in no apparent distress. Skin: Normal color, normal turgor, no icterus, no cyanosis, status post recent right total knee replacement with dressings in place, no drainage. HEENT: AT/NC, EOMI, PERRLA, MMM, no carotid bruits or JVD noted. Lungs: CTA bilaterally, moderate effort, mild decrease BL bases, no rales, ronchi or wheezing. Heart: Regular rate and rhythm; no gallop, rub audible. Abdomen: Soft, obese, NTTP, ND, normal BS, no HSM. Extremities: No cyanosis, clubbing, or edema, peripheral pulses intact, sensation intact, status post right total knee replacement. Neurological: Patient awake, alert, oriented as noted, cognitive function intact ; pupils equally reactive to light and accommodation, cranial nerves II-XII grossly normal, moving all 4 extremities however some limitation given recent block and right total knee replacement, strength accordingly moderately globally decreased. Psychiatric: Affect appears normal, no acute evidence of depressive or anxiety feelings. Assessment & Plan Assessment/Plan (1) Osteoarthritis of right knee: QUALIFIERS: Osteoarthritis type: primary Qualified Code(s): M17.11 - Unilateral primary osteoarthritis, right knee PLAN: #1. Severe Osteoarthritis, R Knee: Failed conservative therapies and treatments, admitted per Dr. Meyers for planned R TKR, post-operative pain management, bowel regimen, DVT Prophylaxis, PT/OT/CM per Orthopedic surgery discretion. #2. History metastatic lung cancer, non-small cell: Patient continued on alectinib regimen per oncology, encourage continued outpatient oncology follow- up. #3. Chronic COPD: We will continue patient home Dulera, as needed albuterol, encourage head of bed and I-S #4. Diabetes mellitus type II: Hold oral home regimen, ADA diet, accu checks w/ ISS. #5. Hypertension: Continue home regimen including metoprolol, PRN hydralazine. #6. Obesity: Weight loss and lifestyle changes encouraged. #7. Gout: We will continue patient home allopurinol regimen. #8. Chronic anemia/iron deficiency anemia: Expected postoperative hemoglobin assessment, repeat CBC in a.m. per orthopedic surgery discretion, continue iron supplementation. #9. GERD: We will continue patient on PPI. #10. DVT prophylaxis: SCDs, chemoprophylaxis per surgery discretion given re cent OR. Charges/Coding Visit Charges Inpatient E&M: 09899 Subs Hosp L3
[2021-04-25] MEDS: ALECTINIB HCL 150 MG 300 MG PO (20:27)
[2021-04-25] MEDS: Senna/Docusate Sodium 1 Tablet 2 TABLET PO (20:28)
[2021-04-26] VITALS (7 sets, daily range): BP systolic 122–143; BP diastolic 59–81; PULSE 73–80; RESP 16–18; TEMP 36.4–37.2; O2SAT 97–99; BMI 32.9
[2021-04-26] MEDS: Acetaminophen 500 MG Tablet 1000 MG PO ×3 (02:56→17:49)
[2021-04-26] MEDS: oxyCODONE 5 MG Tablet PO ×5 (02:57→23:01)
[2021-04-26 05:50] LABS: Hematocrit 30.1 % (37-47); Hemoglobin 9.8 g/dL (12.0-15.0); Mean Corp Hgb Conc 32.6 g/dL (32-36); Mean Corpuscular Hgb 29.5 pg (27.0-32.0); Mean Corpuscular Volume 90.7 fL (81-99); Mean Platelet Vol. 11.5 fl (6.2-12.0); Platelet Count 326 K/mm3 (150-450); RBC Distribution Width SD 56.7 fl (35.1-43.9); Red Blood Count 3.32 M/mm3 (4.2-5.4); White Blood Count 15.8 K/mm3 (4.4-11.0)
[2021-04-26 06:32] LABS: Anion Gap 10 (5-15); BUN 14 mg/dL (7-18); BUN/Creat Ratio 15.3 RATIO (10-20); Calcium,Total 8.9 mg/dL (8.5-10.1); Chloride 102 mmol/L (98-107); Creatinine, Serum 0.92 mg/dL (0.55-1.02); EST Glomerular Filtration Rate 64 mL/min (>60); Est Glom Filt Rate - Afr Amer 77 mL/min (>60); Estimated Creatinine Clearance 65.79 ml/min; Glucose 144 mg/dL (74-106); Potassium 4.5 mmol/L (3.5-5.1); Sodium Level 138 mmol/L (136-145)
[2021-04-26] MEDS: Cefazolin 1 GM/50 ML BAG IV (06:37)
[2021-04-26] MEDS: APIXABAN 2.5 MG TABLET PO ×3 (06:37→23:06)
[2021-04-26 06:51] LABS: Bedside Glucose 135 mg/dL (70-110)
[2021-04-26 07:26] LABS: Bedside Glucose 177 mg/dL (70-110)
--- NOTE | 2021-04-26 08:21 | PCM.TXEXTCAR ---
Diet 04/25/21 17:14 Diet: diabetic diet Wound(s) RIGHT KNEE PROXIMAL: Wound Type: Surgical Incision RIGHT KNEE DISTAL: Wound Type: Surgical Incision Therapies Weight Bearing: Weight bearing as tolerated Problem/Diagnosis (1) Osteoarthritis of right knee: Status: Acute Allergies/Procedures Done in Hospital Allergies codeine Adverse Reaction (Severe, Verified 04/25/21 09:11) hyper choline fenofibrate [From Trilipix] Adverse Reaction (Intermediate, Verified 04/25/21 09:11) Pain in joints fenofibrate [From Tricor] Adverse Reaction (Intermediate, Verified 04/25/21 09:11) muscle pain Type of Care/Length of Stay Estimated LOS: Convalescent Care Less Than 30 days Type of Care Needed: Skilled Rehab Potential: Good Prognosis: Good Additional Orders/Day of Discharge Day of Discharge: 04/26/21 Discharge Plan Admission Admit Date/Time: 04/25/21 19:34 Primary Reason for Your Visit: right total knee arthroplasty Attending Provider: Geoff Bobby Primary Care Provider: Katie Fernández Consulting Providers: Marcin Sims ; Adela Fried Instructions Additional Instructions / Restrictions: Ice and elevate one week while not ambulating. Ambulation is encouraged. Weightbearing as tolerated. Use assistive devise for stability. Encourage FULL knee extension and flexion 1 time EVERY time you get up and down and MULTIPLE times per day. No showering 72 hours after surgery. Begin showering postop day #3. Remove the dressing prior to shower and gently wash with warm water and antibacterial soap then pat dry and place abdominal pad (or plain gauze) and DARIUS hose over top. This is to be done daily. Do not submerge for 3 weeks. If not showering daily after the initial 72 hours then you must clean incision and change dressing daily. Do not allow animals near the incision area. Keep clean. Follow anticoagulation recommendations as prescribed. Do not take any NSAIDs while on blood thinner. Do not take any additional narcotic pain medication other than what was prescribed on your surgery day without discussing with physician. Narcotic medication can be addictive. Do not drink alcohol while taking narcotics. Start physical therapy. If you are not currently scheduled for physical therapy or you are unsure of appointment time please call office LIT to arrange. Call Dr. Meyers with any concerns. Discharge Orders/Prescriptions Prescriptions: New oxycodone 5 mg Tablet 5 - 10 mg PO Q4H PRN PRN (Reason: Pain Score 4-10) 7 Days Qty: 60 RF: 0 Eliquis 2.5 mg Tablet 2.5 mg PO BID Qty: 28 RF: 0 Continued metoprolol succinate [Toprol XL] 25 MG tablet extended release 24 hr 25 mg PO DAILY RF: 0 Alecensa 150 MG capsule 2 cap PO BID RF: 0 omeprazole 20 mg capsule,delayed release(DR/EC) 20 mg PO DAILY RF: 0 allopurinol 300 mg tablet 300 mg PO DAILY RF: 0 ferrous sulfate 325 mg (65 mg iron) Capsule, Extended Release 65 mg PO DAILY RF: 0 vitamin D3-vitamin K2 1,250-200 mcg Capsule 1 cap PO DAILY RF: 0 Dulera 100-5 mcg/actuation Hfa Aerosol Inhaler 1 puff INHALATION BID RF: 0 metformin 500 mg Tablet Extended Release 24 Hr 1,500 mg PO DAILY RF: 0 Referrals / Follow Up: Katie Fernández DO [Primary Care Provider] -
[2021-04-26] MEDS: ALECTINIB HCL 150 MG 300 MG PO ×2 (08:23→17:49)
[2021-04-26] MEDS: Metoprolol(XL)Succ 25 MG Tablet PO (08:25)
[2021-04-26] MEDS: Pantoprazole Sodium 20 MG Tablet PO (08:25)
[2021-04-26] MEDS: Senna/Docusate Sodium 1 Tablet 2 TABLET PO ×2 (08:26→23:01)
--- NOTE | 2021-04-26 08:28 | DS.PCM_ITS ---
Providers Date of Admission: 04/25/21 Primary Care Physician: Dr. Katie Fernández, Consultations 04/25/21 13:28 Consult: Hospitalist Routine Consulting Provider: Adela Fried Reason for Consult: post op medical managment attn Diabetic glycemic control EMERGENT Consult: No MD Notified: Yes Date Notified: 04/25/21 Time Notified: 19:29 Method of Notification: Text Reason For Visit: RIGHT TKA Diagnosis Discharge Diagnosis (1) Osteoarthritis of right knee: Status: Acute Code(s): M17.11 - Unilateral primary osteoarthritis, right knee Qualifiers: Osteoarthritis type: primary Qualified Code(s): M17.11 - Unilateral primary osteoarthritis, right knee Medications at Discharge Home Medications alectinib [Alecensa] 2 cap PO BID 03/03/18 metoprolol succinate [Toprol Xl] 25 mg PO DAILY 03/03/18 allopurinol 300 mg PO DAILY 11/28/20 omeprazole 20 mg PO DAILY 11/28/20 metformin 1,500 mg PO DAILY 03/07/21 ferrous sulfate 65 mg PO DAILY 04/04/21 mometasone-formoterol [Dulera] 1 puff INHALATION BID 04/04/21 vitamin D3-vitamin K2 1 cap PO DAILY 04/04/21 apixaban [Eliquis] 2.5 mg PO BID #28 tab 04/26/21 oxycodone 5 - 10 mg PO Q4H PRN PRN 7 Days #60 tab 04/26/21 Hospital Course Summary of Care Provided Hospital Course: Postop day #1 right total knee arthroplasty patient doing well no complaints able to stand with assist in therapy pain control. Denies fever chills nausea vomiting shortness of breath or chest pain Bridget is a 70-year-old female who has long history of degenerative joint disease to the knee who has failed conservative treatment and wished to undergo elective total knee arthroplasty. Patient underwent the aformentioned procedure on the admission date without any intraoperative complications. Patient did receive pre-and postoperative antibiotics which were discontinued within 23 hours postoperatively. Patient did receive general anesthesia. pain was controlled with IV and transition to p.o. pain medication Patient will be discharged home with oxycodone and will continue Tylenol as well. Patient had minimal intraoperative blood loss and 2gm tranexamic acid was administered there was no need for postoperative blood transfusion Patients vital signs remained stable. Patient was started on both mechanical and chemical DVT per prophylaxis postoperatively in the form of SCDs DARIUS hose and [Eliquis 2.5 mg twice daily fo r which she will continue for 2 additional weeks post hospital discharge]. thigh high darius hose placed over top of the meplix silver dressing. This should be removed 72 hrs post operatively and showering begun daily at that time with warm water and antibacterial soap. not to submerge for 3 weeks. To change dressing daily after first dressing change. Patient will follow-up in the office in 2 weeks. No intrahospital complications. Physical Exam Const alert, oriented x3 and no apparent distress General Appearance: cooperative and comfortable Extremity Extremity Narrative: Right lower extremity dressing clean dry intact compartments soft neurovascular intact EHL tibialis anterior gastrocsoleus intact sensation light touch palpable pedal pulses Weight / BMI Weight Weight: 166 lb 3.657 oz Body Mass Index (BMI) 35.3 ABG / Lab / Microbiology Data Result Diagrams: 04/26/21 05:22 04/26/21 05:22 Laboratory: Laboratory Results - last 24 hr 04/25/21 09:10: POC Glucose 272 H 04/25/21 13:40: POC Glucose 143 H 04/25/21 20:24: POC Glucose 177 H 04/26/21 05:22: WBC 15.8 H, RBC 3.32 L, Hgb 9.8 L, Hct 30.1 L, MCV 90.7, MCH 29.5, MCHC 32.6, RDW Std Deviation 56.7 H, RDW Coeff of Chema 17.0 H, Plt Count 326, MPV 11.5 04/26/21 05:22: Sodium 138, Potassium 4.5, Chloride 102, Carbon Dioxide 26.0, Anion Gap 10, BUN 14, Creatinine 0.92, Estim Creat Clear Calc 65.79, Est GFR (MDRD) Af Amer 77, Est GFR (MDRD) Non-Af 64, BUN/Creatinine Ratio 15.3, Glucose 144 H, Calcium 8.9 04/26/21 06:40: POC Glucose 135 H Microbiology: Microbiology 04/06/21 08:39 Swab (Method) Nasal Screen MRSA/MSSA - Final Radiography Diagnostic Testing: Radiology Impression Knee X-Ray 04/25/21 13:45 IMPRESSION: Status post total knee replacement. There is good alignment. Postoperative soft tissue swelling. Electronically Signed: Riccardo Vazquez MD at 14:17 EST , Service support , D/C Instructions Discharge Diet: 2000 Calorie Control Diet Additional Dressing/Incision Instructions: Ice and elevate one week while not ambulating. Ambulation is encouraged. Weightbearing as tolerated. Use assistive devise for stability. Encourage FULL knee extension and flexion 1 time EVERY time you get up and down and MULTIPLE times per day. No showering 72 hours after surgery. Begin showering postop day #3. Remove the dressing prior to shower and gently wash with warm water and antibacterial soap then pat dry and place abdominal pad (or plain gauze) and DARIUS hose over top. This is to be done daily. Do not submerge for 3 weeks. If not showering daily after the initial 72 hours then you must clean incision and change dressing daily. Do not allow animals near the incision area. Keep clean. Follow anticoagulation recommendations as prescribed. Do not take any NSAIDs while on blood thinner. Do not take any additional narcotic pain medication other than what was prescribed on your surgery day without discussing with physician. Narcotic medication can be addictive. Do not drink alcohol while taking narcotics. Start physical therapy. If you are not currently scheduled for physical therapy or you are unsure of appointment time please call office LIT to arrange. Call Dr. Meyers with any concerns. Please Follow Up With: Rafael Meyers DO When: 2 weeks Meaningful Use Info Meaningful Use Diagnoses (Choose all that apply): None applicable Discharge Plan Admission Admit Date/Time: 04/25/21 19:34 Primary Reason for Your Visit: right total knee arthroplasty Attending Provider: Geoff Bobby Primary Care Provider: Katie Fernández Consulting Providers: Marcin Sims ; Adela Fried Instructions Additional Instructions / Restrictions: Ice and elevate one week while not ambulating. Ambulation is encouraged. Weightbearing as tolerated. Use assistive devise for stability. Encourage FULL knee extension and flexion 1 time EVERY time you get up and down and MULTIPLE times per day. No showering 72 hours after surgery. Begin showering postop day #3. Remove the dressing prior to shower and gently wash with warm water and antibacterial soap then pat dry and place abdominal pad (or plain gauze) and DARIUS hose over top. This is to be done daily. Do not submerge for 3 weeks. If not showering daily after the initial 72 hours then you must clean incision and change dressing daily. Do not allow animals near the incision area. Keep clean. Follow anticoagulation recommendations as prescribed. Do not take any NSAIDs while on blood thinner. Do not take any additional narcotic pain medication other than what was prescribed on your surgery day without discussing with physician. Narcotic medication can be addictive. Do not drink alcohol while taking narcotics. Start physical therapy. If you are not currently scheduled for physical therapy or you are unsure of appointment time please call office LIT to arrange. Call Dr. Meyers with any concerns. Discharge Orders/Prescriptions Prescriptions: New oxycodone 5 mg Tablet 5 - 10 mg PO Q4H PRN PRN (Reason: Pain Score 4-10) 7 Days Qty: 60 RF: 0 Eliquis 2.5 mg Tablet 2.5 mg PO BID Qty: 28 RF: 0 Continued metoprolol succinate [Toprol XL] 25 MG tablet extended release 24 hr 25 mg PO DAILY RF: 0 Alecensa 150 MG capsule 2 cap PO BID RF: 0 omeprazole 20 mg capsule,delayed release(DR/EC) 20 mg PO DAILY RF: 0 allopurinol 300 mg tablet 300 mg PO DAILY RF: 0 ferrous sulfate 325 mg (65 mg iron) Capsule, Extended Release 65 mg PO DAILY RF: 0 vitamin D3-vitamin K2 1,250-200 mcg Capsule 1 cap PO DAILY RF: 0 Dulera 100-5 mcg/actuation Hfa Aerosol Inhaler 1 puff INHALATION BID RF: 0 metformin 500 mg Tablet Extended Release 24 Hr 1,500 mg PO DAILY RF: 0 Referrals / Follow Up: Katie Fernández DO [Primary Care Provider] -
[2021-04-26] MEDS: Allopurinol 300 MG Tablet PO (08:30)
--- NOTE | 2021-04-26 10:18 | CASEMGMT ---
Social Work CHAGO received referral from Dr. Meyers that pt will need short term SNF at discharge. SW met with pt in room and introduced self and role of SW. Pt states she lives at home alone in a two story home with bed and bath on the second floor. Pt has 2 steps to enter home. Prior to surgery, pt was independent with all care needs and able to drive self. Pt states she cannot return home at this time and will need short term rehab prior to discharge home alone. [facility]AGO provided pt with a list of SNF providers including quality and resource use data and consistent with the patient's preferred geographic region, medical needs and insurance network. Pt preferred provider is [facility]CU. SW placed call to [facility] in [facility] and there is a bed available. Pt will need insurance precert prior to admission. Pt informed and agreeable to d/c to TCU once precert is obtained. Plan: [facility], pending insurance precert MIRIAM Saenz
[2021-04-26 11:06] LABS: Bedside Glucose 145 mg/dL (70-110)
[2021-04-26] MEDS: Ferrous Sulfate 325 MG Tablet 65 MG PO (14:06)
[2021-04-26 16:16] LABS: Bedside Glucose 143 mg/dL (70-110)
--- NOTE | 2021-04-26 17:40 | PN.HOSP_ITS ---
Subjective Subjective Patient was seen and examined today, she states she is going to be going to TCU if possible for inpatient rehab services. We are waiting to hear from her insurance company to confirm this. Patient has no complaints of any shortness of breath, chest pain, fevers, or chills. Objective Data Objective Data Vital Signs: Vital Signs Temp Pulse Resp BP Pulse Ox 98.9 F 80 16 122/68 H 99 04/26/21 17:02 04/26/21 17:02 04/26/21 17:02 04/26/21 17:02 04/26/21 17:02 Oxygen Flow Rate (L/min) 4 Oxygen Delivery Method Room Air Weight: 75.4 kg Body Mass Index (BMI) 35.3 Intake & Output: Intake and Output for Last 24 Hours 04/24/21 04/25/21 04/26/21 23:59 23:59 23:59 Intake Total 2534.5 / 3034.5 2750 / 2750 Output Total 1100 / 1100 Balance 2534.5 / 1934.5 1650 / 1650 Lab / Micro Data Result Diagrams: 04/26/21 05:22 04/26/21 05:22 Labs: Laboratory Results - last 24 hr 04/25/21 20:24: POC Glucose 177 H 04/26/21 05:22: WBC 15.8 H, RBC 3.32 L, Hgb 9.8 L, Hct 30.1 L, MCV 90.7, MCH 29.5, MCHC 32.6, RDW Std Deviation 56.7 H, RDW Coeff of Chema 17.0 H, Plt Count 326, MPV 11.5 04/26/21 05:22: Sodium 138, Potassium 4.5, Chloride 102, Carbon Dioxide 26.0, Anion Gap 10, BUN 14, Creatinine 0.92, Estim Creat Clear Calc 65.79, Est GFR (MDRD) Af Amer 77, Est GFR (MDRD) Non-Af 64, BUN/Creatinine Ratio 15.3, Glucose 144 H, Calcium 8.9 04/26/21 06:40: POC Glucose 135 H 04/26/21 10:59: POC Glucose 145 H 04/26/21 16:02: POC Glucose 143 H Micro: Microbiology 04/26/21 15:40 Nasal Secretion SARS-CoV-2 Antigen (Rapid) - Final 04/06/21 08:39 Swab (Method) Nasal Screen MRSA/MSSA - Final Physical Exam Const alert, oriented x3, no apparent distress and healthy appearing General Appearance: cooperative, well kempt and well developed Orientation / Consciousness: awake, oriented to person, oriented to place and oriented to time HEENT normocephalic, head/scalp atraumatic and moist oral mucous membranes Head and Scalp: normocephalic Eyes PERRL, EOMs intact bilaterally and conjunctivae normal Neck nuchal rigidity, supple, no JVD, thyroid normal and no carotid bruits General: trachea midline Resp normal respiratory effort, no retractions, no use of accessory muscles and clear to auscultation bilaterally Auscultation: Negative for rales, rhonchi or wheezes Cardio regular rate, regular rhythm, S1 normal heart sound, S2 normal heart sound, no murmurs, no rub and no gallops GI normal to inspection, nondistended, normoactive bowel sounds, soft to palpation, non-tender and non-distended Extremity no clubbing, cyanosis or edema Extremity Narrative: Patient's right knee was not examined at the time of this visit Skin no rashes or lesions noted General Skin Exam: no breakdown Neuro oriented x3, CN's II-XII intact bilaterally, no focal motor deficits and no sensory deficits noted Sensorium / Orientation: awake and alert Speech: speech normal Psych thought process normal and affect normal Assessment & Plan Assessment/Plan (1) Osteoarthritis of right knee: QUALIFIERS: Osteoarthritis type: primary Qualified Code(s): M17.11 - Unilateral primary osteoarthritis, right knee PLAN: 1. COPD-patient will continue on her present medications and albuterol as needed dyspnea. #2 type 2 diabetes-patient will undergo Accu-Cheks with sliding scale insulin administration #3 essential hypertension-patient is currently on metoprolol and as needed hydralazine #4 GERD-patient is currently on a PPI #5 metastatic lung [id number] cell-patient follows up with oncology #6 osteoarthritis of the right knee-postop day #1 total knee replacement- orthopedic surgery is managing this aspect, patient will be seen by PT and OT, she will need to go to a skilled facility for inpatient rehab services when she is discharged from the hospital. Charges/Coding Visit Charges Inpatient E&M: 72249 Subs Hosp L2
--- NOTE | 2021-04-26 18:17 | NURSING ---
Reviewed and agree with JAMA Heaton charting.
[2021-04-26 22:00] LABS: Bedside Glucose 145 mg/dL (70-110)
[2021-04-27 03:15] VITALS: BP 142/81; PULSE 80; RESP 18; TEMP 36.7; O2SAT 95
[2021-04-27] MEDS: oxyCODONE 5 MG Tablet PO ×2 (03:46→09:37)
[2021-04-27] MEDS: Acetaminophen 500 MG Tablet 1000 MG PO ×2 (03:46→13:01)
[2021-04-27 06:00] LABS: Hematocrit 25.6 % (37-47); Hemoglobin 8.4 g/dL (12.0-15.0); Mean Corp Hgb Conc 32.8 g/dL (32-36); Mean Corpuscular Volume 91.4 fL (81-99); Mean Platelet Vol. 11.2 fl (6.2-12.0); Platelet Count 289 K/mm3 (150-450); RBC Distribution Width CV 16.6 % (11.6-14.6); RBC Distribution Width SD 56.1 fl (35.1-43.9)
[2021-04-27 06:46] LABS: Bedside Glucose 106 mg/dL (70-110)
[2021-04-27 07:29] VITALS: BP 133/68; PULSE 74; RESP 16; TEMP 36.9; O2SAT 95
--- NOTE | 2021-04-27 07:35 | NURSING ---
patient up to bathroom to brush teeth and use bathroom. patient tolerates ambulation well. denies need for pain medication at this time
[2021-04-27] MEDS: APIXABAN 2.5 MG TABLET PO (09:04)
[2021-04-27 09:09] VITALS: PULSE 74
[2021-04-27] MEDS: Senna/Docusate Sodium 1 Tablet 2 TABLET PO (09:09)
[2021-04-27] MEDS: Metoprolol(XL)Succ 25 MG Tablet PO (09:09)
[2021-04-27] MEDS: Pantoprazole Sodium 20 MG Tablet PO (09:09)
[2021-04-27] MEDS: ALECTINIB HCL 150 MG 300 MG PO (09:10)
--- NOTE | 2021-04-27 11:07 | CASEMGMT ---
Social Work Received call from TCU and precert has been obtained with insurance. SW updated physican and pt is ready for discharge today. SW informed pt who is agreeable to discharge and aware that she will need to provide her own medication Alecensa and pt is agreeable. Pt denies need for SW to contact son as she states she will be calling him to inform. Nursing updated. Discharge orders faxed to TCU. Plan: TCU, skilled level of care. MIRIAM Saenz
--- NOTE | 2021-04-27 11:23 | PN.HOSP_ITS ---
Subjective Subjective Patient was seen and examined today, we received approval for her to go to TCU for rehab services. Patient appears medically stable at this time, she does not complain of any shortness of breath, chest pain, fevers or chills. Objective Data Objective Data Vital Signs: Vital Signs Temp Pulse Resp BP Pulse Ox 98.4 F 74 16 133/68 H 95 04/27/21 07:29 04/27/21 09:09 04/27/21 07:29 04/27/21 07:29 04/27/21 07:29 Oxygen Flow Rate (L/min) 4 Oxygen Delivery Method Room Air Weight: 75.4 kg Body Mass Index (BMI) 35.3 Intake & Output: Intake and Output for Last 24 Hours 04/25/21 04/26/21 04/27/21 23:59 23:59 23:59 Intake Total 2534.5 / 3034.5 3230 / 3430 300 / 300 Output Total 1100 / 1100 0 / 0 Balance 2534.5 / 1934.5 2130 / 2330 300 / 300 Lab / Micro Data Result Diagrams: 04/27/21 05:46 04/26/21 05:22 Labs: Laboratory Results - last 24 hr 04/26/21 16:02: POC Glucose 143 H 04/26/21 21:18: POC Glucose 145 H 04/27/21 05:46: WBC 14.0 H, RBC 2.80 L, Hgb 8.4 L, Hct 25.6 L, MCV 91.4, MCH 30.0, MCHC 32.8, RDW Std Deviation 56.1 H, RDW Coeff of Chema 16.6 H, Plt Count 289, MPV 11.2 04/27/21 06:38: POC Glucose 106 Micro: Microbiology 04/26/21 15:40 Nasal Secretion SARS-CoV-2 Antigen (Rapid) - Final 04/06/21 08:39 Swab (Method) Nasal Screen MRSA/MSSA - Final Physical Exam Const alert, oriented x3, no apparent distress and healthy appearing General Appearance: cooperative, well kempt and well developed Orientation / Consciousness: awake, oriented to person, oriented to place and oriented to time HEENT normocephalic, head/scalp atraumatic and moist oral mucous membranes Head and Scalp: normocephalic Eyes PERRL, EOMs intact bilaterally and conjunctivae normal Neck nuchal rigidity, supple, no JVD and thyroid normal General: trachea midline Resp normal respiratory effort, no retractions, no use of accessory muscles and clear to auscultation bilaterally Auscultation: Negative for rales, rhonchi or wheezes Cardio regular rate, regular rhythm, S1 normal heart sound, S2 normal heart sound, no murmurs, no rub and no gallops GI normal to inspection, nondistended, normoactive bowel sounds, soft to palpation, non-tender and non-distended Extremity no clubbing, cyanosis or edema Skin no rashes or lesions noted General Skin Exam: no breakdown Neuro oriented x3, CN's II-XII intact bilaterally, no focal motor deficits and no sensory deficits noted Sensorium / Orientation: awake and alert Speech: speech normal Psych thought process normal and affect normal Assessment & Plan Assessment/Plan (1) Diabetes mellitus: (2) Osteoarthritis of right knee: QUALIFIERS: Osteoarthritis type: primary Qualified Code(s): M17.11 - Unilateral primary osteoarthritis, right knee PLAN: 1. COPD-patient will continue on her present medications and albuterol as needed for dyspnea. #2 type 2 diabetes-patient will undergo Accu-Cheks with sliding scale insulin administration #3 essential hypertension-patient is currently on metoprolol and as needed hydralazine #4 GERD-patient is currently on a PPI #5 metastatic lung [id number] cell-patient follows up with oncology #6 osteoarthritis of the right knee-postop day #2 total knee replacement- orthopedic surgery is managing this aspect, patient will be seen by PT and OT, she will be discharged today to TCU for further inpatient rehab services. Charges/Coding Visit Charges Inpatient E&M: 73835 Subs Hosp L2
[2021-04-27 11:50] LABS: Bedside Glucose 105 mg/dL (70-110)
[2021-04-27] MEDS: Allopurinol 300 MG Tablet PO (13:01)
[2021-04-27] MEDS: Ferrous Sulfate 325 MG Tablet 65 MG PO (13:01)
--- NOTE | 2021-04-27 13:36 | NURSING ---
report called to TCU, pt to be transported via bed to TCU 19. TCU requested we leave SL intact to L wrist.
[2021-04-27 13:40] VITALS: BP 153/72; PULSE 82; RESP 16; TEMP 36.9; O2SAT 98
--- NOTE | 2021-05-05 10:15 | OP_ITS ---
Date of Procedure: 04/25/21 Description of Surgical Findings:: Preoperative diagnosis: Right knee DJD Postoperative diagnosis: [Same] Procedure: Right total knee arthroplasty CT guided Robotic Assisted Implant: [place] triathlon [cemented], Complications: None Condition: Stable to PACU Estimated blood loss: 150 cc Indication for procedure: This is a 70-year-old female with long standing degenerative joint disease of the knee who has failed conservative treatment and wished to proceed with elective total knee arthroplasty. Risk benefits and alternatives were reviewed including; risk of bleeding, infection, nerve artery and tissue damage, continued pain, postoperative stiffness, venous thromboembolism, need for postoperative rehabilitation, mechanical feel to the knee, and expected postoperative course. The pre- operative CT and templating was performed with component sizing. Procedure: The patient was met in the preoperative holding area. The operative extremity was identified by both patient and physician and was marked. Patient was met by anesthesia. An adductor canal block was placed by anesthesia [postoperatively] the patient was brought back to the operating room on a wheeled cart and transferred to the operating table in the supine position. Anesthesia was started. A well-padded tourniquet was placed on the operative extremity. The patient was prepped and draped in the usual sterile fashion. A timeout was called to ensure the proper patient procedure and extremity were being contemplated. An esmarch was used to exsanguinate the extremity. The tourniquet was inflated. A 10 blade scalpel was used to make a midline incision down through the skin and subcutaneous tissue. Skin retractors placed. Bovie and Aquamantis were used to perform meticulous hemostasis. full-thickness flaps were elevated medial and lateral along the joint capsule. A deep blade scalpel was used to perform a medial parapatellar arthrotomy. The knee was brought to full extension. A bovie was used to release the soft tissues off the most proximal aspect of the medial tibial plateau, a three-quarter inch curved osteotome was also used in this process. The infrapatellar fat pad was excised. [The suprapatellar fat pad was excised partially anteriorolateraly and portion the anterioromedial pad was elevated from the femur]. At this point our intra- articular femoral array was placed at a 45 degree angle proximal and posterior to the medial epicondyle. femoral checkpoint was placed at this time. Our tibial array was placed greater than 1 hands breath below the incision at a 20 degree angle stab incisions were made with a 15 blade scalpel and pins were placed and attached to the tibial array , tibial checkpoint was placed in the proximal tibial metaphysis. Tourniquet was let down. At this point registration gordon were taken throughout the knee . Once the knee was registered we then tensioned the medial and lateral ligaments in extension and 90 degrees of flexion. We then used these numbers to adjust our components within parameters to balance the knee in both flexion and extension once this was done on our monitor we then proceeded with using the robotic arm to make our tibial plateau cut, anterior and posterior chamfer and distal femur cuts. we removed the cut fragments with the use of a bovie and Hemanth, we did use a lamina food preparation kitchen aide to insure we visualized and removed all posterior osteophytes and at this time also used the Aquamantis on the posterior joint capsule. we then trialed and achieved the desired plan with a well-balanced knee. we used the green probe to kim the corresponding tibial rotation based on our CT template. Lug holes were drilled in the femur the tibia preparation was completed with the appropriate sized base plate pinned based on previous rotation kim. An appropriate sized fin punch was used on the tibia and the patella was prepared by first using a caliper to ensure sufficient bone stock and a patellar reamer to remove the desired amount of bone. lug holes drilled for an [asymmetric poly]. We then brought the knee through range of motion with excellent patellar tracking. We thoroughly irrigated the knee. Trial components were removed a posterior capsular injection was preformed with our standard cocktail. In addition the aqua Mantis was also used to aid in hemostasis. Betadine rinse was allowed to sit and washed out completely. Components were cemented with standard technique and finger tapping all bony surfaces were well dried first. Aricept rinse was then used followed by several more liters of irrigation after it was allowed to sit. The joint capsule was closed with #1 Ethibond [id number] followed by Vicryl in the subcutaneous tissues [with denise in the skin]. Arrays and checkpoints were removed prior to closure all counts were correct stab incisions were closed with a staple standard dressing in the form of Mepilex AG for the main incision and a small Mepilex over the pin holes. Thigh-high DARIUS hose applied over top of dressing. Patient tolerated the procedure well and was directed to PACU in stable condition . [there were no intraoperative complications].
== END 2021-04-27 13:50 | disposition home or self-care (01) | DRG 470 ==
LOC: MS2 19:40 → SDC 04-28 15:08
PROVIDERS: Anesthesiology; Admitting Provider Orthopaedic Surgery; PCP Internal Medicine; Referring Provider Orthopaedic Surgery; Visit Provider Internal Medicine
PROC: 0SRC0JZ Replacement of Right Knee Joint with Synthetic Substitute, Open Approach (ICD-10-PCS; CPT 27447; principal; 2021-04-25 10:30)
DX: M17.11 Unilateral primary osteoarthritis, right knee (principal); C34.90 Malignant neoplasm of unspecified part of unspecified bronchus or lung; E11.9 Type 2 diabetes mellitus without complications; D50.9 Iron deficiency anemia, unspecified; I10 Essential (primary) hypertension; J44.9 Chronic obstructive pulmonary disease, unspecified; S83.249A Other tear of medial meniscus, current injury, unspecified knee, initial encounter; M10.9 Gout, unspecified; K21.9 Gastro-esophageal reflux disease without esophagitis; Z87.891 Personal history of nicotine dependence; Z79.84 Long term (current) use of oral hypoglycemic drugs; Z96.651 Presence of right artificial knee joint
CPT/HCPCS: 36415; 73560; 80048; 82962; 82985; 83036; 83735; 85025; 85027; 85610; 85730; 86850; 86900; 86901; 87081; 87426; 88305; 88311; 97110; 97162; 97166; 97530; 97535; 99251; 99406; C1776; J7120; G0463; J0702; J2405

== ENCOUNTER 2021-04-27 14:09 | Inpatient (IN) | payer MEDICARE, SELFPAY ==
[2021-04-27 14:19] VITALS: BP 161/70; PULSE 78; RESP 17; TEMP 37.3; O2SAT 97
[2021-04-27 14:56] VITALS: BMI 33.5
[2021-04-27 16:12] VITALS: PULSE 80; RESP 16; O2SAT 96
[2021-04-27] MEDS: oxyCODONE 5 MG Tablet PO ×2 (18:41→22:27)
[2021-04-27] MEDS: APIXABAN 2.5 MG TABLET PO (18:41)
[2021-04-27] MEDS: ALECTINIB HCL 150 MG 300 MG PO (20:32)
--- NOTE | 2021-04-27 20:35 | PCM.HP.STD ---
HPI - General General Date of Admission: 04/27/21 HPI Narrative LISETTE CRISOSTOMO, is a 70 Female who presents with followin02/17/2021 MRI right knee medial meniscus tear. 04/25/2021 Right knee pain despite PT, steroid injection x 2, viscosupplementation. 04/25/2021 Dr. Meyers performed right total knee replacement. Pre & post antibiotics given. Pain controlled with IV pain medications, then oxycodone, Tylenol. Tranexamic acid given. Eliquis 2.5mg twice daily, SCD's, Mark barnett for DVT prophylaxis. PT/OT for SNF. 04/27/2020 Admit to TCU with debility, here for rehabilitation, strengthening, prior to discharge home alone. [facility] Medical History (Updated 04/27/21 @ 20:[address] Lucho Ricardo MD) Abnormal laboratory test Abnormal results of thyroid function studies Anemia Arthritis Back pain Cancer Encounter for screening for COVID-19 Former smoker Gastric reflux Gout History of echocardiogram History of edema History of pain when walking History of steroid therapy History of stress test Hypertension Metastatic lung carcinoma Non-small cell lung cancer metastatic to lymph node of head and neck region Wears contact lenses Wears glasses Home Medications alectinib [Alecensa] 2 cap PO BID 03/03/18 [History Last Taken 04/25/21] metoprolol succinate [Toprol Xl] 25 mg PO DAILY 03/03/18 [History Last Taken 04/25/21] allopurinol 300 mg PO DAILY 11/28/20 [History Last Taken Unknown] omeprazole 20 mg PO DAILY 11/28/20 [History Last Taken Unknown] metformin 1,500 mg PO DAILY 03/07/21 [History Last Taken Unknown] ferrous sulfate 65 mg PO DAILY 04/04/21 [History Last Taken Unknown] mometasone-formoterol [Dulera] 1 puff INHALATION BID 04/04/21 [History Last Taken Unknown] vitamin D3-vitamin K2 1 cap PO DAILY 04/04/21 [History Last Taken Unknown] oxycodone 5 - 10 mg PO Q4H PRN PRN 7 Days #60 tab 04/26/21 [Rx Last Taken Unknown] apixaban [Eliquis] 2.5 mg PO BID 04/27/21 [History Last Taken Unknown] Allergy/AdvReac Type Severity Reaction Status Date / Time codeine AdvReac Severe hyper Verified 04/25/21 09:11 choline fenofibrate AdvReac Intermediate Pain in Verified 04/25/21 09:11 [From Trilipix] joints fenofibrate [From Tricor] AdvReac Intermediate muscle pain Verified 04/25/21 09:11 Family History Mother Cancer Hx breast CA. Father CVA (cerebral vascular accident) Surgical History (Updated 04/27/21 @ 20:[address] Lucho Ricardo MD) History of bunionectomy of left great toe History of cholecystectomy History of total left knee replacement History of total left knee replacement Hx of colonoscopy Hx of lumpectomy Hx of tonsillectomy Social History household members: none Smoking Status: Former smoker how long ago did patient quit smoking: Quit 2016, smoked 1 ppd since 18 year old. alcohol intake: never substance use type: does not use ROS Constitutional Constitutional: Denies chills, fever(s) or weight gain ENT HEENT: Denies headache(s), nasal congestion or nasal discharge Cardiovascular Cardiovascular: Denies chest pain or palpitations Respiratory/Chest Respiratory/Chest: Denies cough, excessive phlegm production or shortness of breath with exertion Gastrointestinal Gastrointestinal: Denies abdominal pain, nausea or vomiting Genitourinary Genitourinary: Denies dysuria Musculoskeletal Musculoskeletal: Denies joint pain or joint swelling Integumentary Integumentary: Denies rash or wounds Neurologic Neurologic: Denies focal weakness, numbness or tingling Psychiatric Psychiatric: Denies anxiety, auditory hallucinations, depression, homicidal ideation or suicidal ideation Vital Signs Vital Signs Vital Signs: 04/27/21 14:19 04/27/21 16:06 04/27/21 16:12 Temperature 99.1 F Temperature Source Temporal Pulse Rate 78 80 Pulse Rhythm Regular Pulse Strength Normal (2+) Normal (2+) Respiratory Rate 17 16 Respiratory Effort Normal Non-Labored Respiratory Depth Normal Respiratory Pattern Normal Blood Pressure 161/70 H Blood Pressure Mean 100 Blood Pressure Source Monitor Blood Pressure Position Supine Blood Pressure Location Right Arm Pulse Ox 97 96 Oxygen Delivery Method Room Air Room Air Weight Weight: 74.933 kg Body Mass Index (BMI) 33.5 Physical Exam Const alert and oriented x3 General Appearance: cooperative HEENT normocephalic Eyes PERRL and EOMs intact bilaterally Neck supple, no JVD and no carotid bruits Resp normal respiratory effort, normal air movement and clear to auscultation bilaterally Cardio regular rate and regular rhythm GI normal to inspection, nondistended, normoactive bowel sounds, non-tender and non-distended Extremity normal capillary refill General Extremity: Negative for edema Skin no rashes or lesions noted General Skin Exam: no breakdown Psych affect normal Appearance: appropriate Assessment & Plan Assessment/Plan (1) Debility: (2) Osteoarthritis of right knee: QUALIFIERS: Osteoarthritis type: primary Qualified Code(s): M17.11 - Unilateral primary osteoarthritis, right knee (3) Diabetes mellitus: (4) Gout: (5) Gastroesophageal reflux disease: (6) Metastatic lung cancer (metastasis from lung to other site): (7) Chronic obstructive pulmonary disease: PLAN: 70 year old female with below past medical history hospitalized for right total knee replacement 04/25/[address] Meyers, admitted to TCU with debility, here for rehabilitation, strengthening, prior to discharge home alone. Debility - PT/OT. Pain - Tylenol 1000mg q6h prn pain (1-5), Oxycodone 5mg q4h prn pain (6-10). Bowel - Miralax 17gm daily, senna/colace 1 tablet bid, Dulcolax 10mg daily prn. Adult immunization - Administer prevnar 13, pneumovax 23, fluzone, covid19 vaccine as appropriate. DVT prophylaxis - Eliquis 2.5mg bid thru 05/09/2021. Metastatic lung cancer - Alecensa 300mg bid, resident has had metastatic lung cancer for 5 years. Gout - Allopurinol 300mg bid. Vitamin D deficiency - D3 25mcg daily. Iron deficiency anemia - Ferrous sulfate 325mg daily. COPD - Flovent 110mg 1 puff bid. Diabetes Mellitus II - Metformin XR 1500mg daily. Hypertension - Metoprolol succinate 25mg daily. GERD - Pantoprazole 20mg daily.
[2021-04-27 21:30] LABS: Bedside Glucose 141 mg/dL (70-110)
[2021-04-27] MEDS: Senna/Docusate Sodium 1 Tablet PO (22:27)
[2021-04-28 05:25] VITALS: BP 149/65; PULSE 93
[2021-04-28] MEDS: Cholecalciferol (VIT D3) 25 MCG TABLET (1,000 UNITS) PO (05:25)
[2021-04-28] MEDS: Pantoprazole Sodium 20 MG Tablet PO (05:25)
[2021-04-28] MEDS: Metoprolol(XL)Succ 25 MG Tablet PO (05:25)
[2021-04-28] MEDS: oxyCODONE 5 MG Tablet PO ×3 (05:25→21:40)
[2021-04-28] MEDS: APIXABAN 2.5 MG TABLET PO ×2 (05:26→16:13)
[2021-04-28] MEDS: Senna/Docusate Sodium 1 Tablet PO (05:26)
[2021-04-28] MEDS: Polyethylene Glycol 3350 17 GM PACKET PO (05:26)
[2021-04-28 05:44] LABS: Absolute Lymphocyte Count 3.27 X10^3/uL (0.83-4.51); Absolute Neutrophil Count 9.9 X10^3/uL (2.0-7.7); Basophil# 0.13 X10^3/uL; Basophil% 0.9 % (0-1); Hematocrit 24.9 % (37-47); Lymphocyte # 3.27 X10^3/ul (0.83-4.51); Lymphocyte % 21.6 % (19-41); Mean Corp Hgb Conc 32.1 g/dL (32-36); Mean Corpuscular Volume 90.2 fL (81-99); Mean Platelet Vol. 11.6 fl (6.2-12.0); Monocyte# 1.35 X10^3/uL; Monocyte% 8.9 % (0-10); NRBC Flagged by Analyzer 0.4 % (0-5); Neutrophil # 9.94 X10^3/uL (2.7-7.7); Neutrophil % 65.8 % (47-70); Platelet Count 309 K/mm3 (150-450); RBC Distribution Width CV 16.5 % (11.6-14.6); RBC Distribution Width SD 54.6 fl (35.1-43.9); Red Blood Count 2.76 M/mm3 (4.2-5.4); White Blood Count 15.1 K/mm3 (4.4-11.0)
[2021-04-28 06:21] LABS: Anion Gap 8 (5-15); BUN 17 mg/dL (7-18); BUN/Creat Ratio 18.4 RATIO (10-20); Calcium,Total 8.8 mg/dL (8.5-10.1); Chloride 99 mmol/L (98-107); Creatinine, Serum 0.92 mg/dL (0.55-1.02); EST Glomerular Filtration Rate 63 mL/min (>60); Est Glom Filt Rate - Afr Amer 77 mL/min (>60); Estimated Creatinine Clearance 65.39 ml/min; Glucose 122 mg/dL (74-106); Potassium 3.5 mmol/L (3.5-5.1); Sodium Level 133 mmol/L (136-145)
[2021-04-28 06:41] LABS: Bedside Glucose 128 mg/dL (70-110)
[2021-04-28] MEDS: ALECTINIB HCL 150 MG 300 MG PO ×2 (07:50→16:13)
[2021-04-28] MEDS: metFORMIN (XR) 500 MG Tablet 1500 MG PO (07:50)
[2021-04-28] MEDS: Allopurinol 300 MG Tablet PO (07:50)
[2021-04-28] MEDS: Ferrous Sulfate 325 MG Tablet PO (07:50)
[2021-04-28] MEDS: Tuberculin,Purif.prot.deriv. 50 TU/ML Vial 0.1 ML ID (11:16)
[2021-04-28] MEDS: NYSTATIN 500,000 UNIT/5 ML UDC 500000 UNIT PO ×3 (11:16→20:16)
[2021-04-28 16:00] VITALS: BP 129/48; PULSE 95; RESP 16; TEMP 36.9; O2SAT 95
[2021-04-28] MEDS: Calcium Carbonate 500 MG Tablet PO (16:12)
--- NOTE | 2021-04-28 16:35 | CASEMGMT ---
Social Work Met with patient for initial assessment. Discussed code status and MOLST form. Pt confirms full code. MOLST form communicated to , placed in chart. Explained [facility] insurance with [facility] 05/01 and continued stay is not guaranteed with each review. The goal is for pt to DC home alone to two story home. Pt only has half bath on first floor, bedroom and full bath are on second floor. Pt is unable to have first floor set up. Son lives about an hour away and works time recorder. Per pt, she must return to independent level and complete stairs safely to return home successfully. Pt disclosed loss of about 5 years ago, her and her dtr both have cancer. Pt immediately became tearful when discussing. Provided emotional support and validated feelings. Discussed medication or counseling. Pt denied both but did go to counseling right after . Discussed coping mechanisms. 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 SW offered continued support throughout stay. SW to continue to follow for DC planning. Reva Oscar, GRAIN BROKER AND MARKET OPERATOR REAL ESTATE MANAGER
[2021-04-28 21:35] LABS: Bedside Glucose 173 mg/dL (70-110)
[2021-04-29 05:32] VITALS: BP 125/62; PULSE 100
[2021-04-29] MEDS: Cholecalciferol (VIT D3) 25 MCG TABLET (1,000 UNITS) PO (05:32)
[2021-04-29] MEDS: Metoprolol(XL)Succ 25 MG Tablet PO (05:32)
[2021-04-29] MEDS: Pantoprazole Sodium 20 MG Tablet PO (05:32)
[2021-04-29] MEDS: NYSTATIN 500,000 UNIT/5 ML UDC 500000 UNIT PO ×4 (05:33→21:30)
[2021-04-29] MEDS: APIXABAN 2.5 MG TABLET PO ×2 (05:33→17:39)
[2021-04-29] MEDS: oxyCODONE 5 MG Tablet PO ×2 (05:39→18:31)
[2021-04-29 06:56] LABS: Bedside Glucose 142 mg/dL (70-110)
[2021-04-29] MEDS: Allopurinol 300 MG Tablet PO (08:44)
[2021-04-29] MEDS: ALECTINIB HCL 150 MG 300 MG PO ×2 (08:44→17:38)
[2021-04-29] MEDS: metFORMIN (XR) 500 MG Tablet 1500 MG PO (08:44)
[2021-04-29] MEDS: Ferrous Sulfate 325 MG Tablet PO (08:44)
[2021-04-29 09:11] LABS: Bedside Glucose 145 mg/dL (70-110)
[2021-04-29 09:34] VITALS: PULSE 84; O2SAT 94
[2021-04-29 11:00] LABS: Bedside Glucose 121 mg/dL (70-110)
[2021-04-29] MEDS: Calcium Carbonate 500 MG Tablet PO (12:00)
--- NOTE | 2021-04-29 14:03 | NURSING ---
Pt requesting to ambulate around halls w/assist. pt with steady gait w/walker and standby assist. ambulated TCU unit. assisted back to bed. [facility] rt knee.
[2021-04-29 17:35] LABS: Bedside Glucose 108 mg/dL (70-110)
[2021-04-29 18:40] VITALS: BP 128/61; PULSE 84; RESP 16; TEMP 36.8; O2SAT 97
--- NOTE | 2021-04-29 20:45 | NURSING ---
A&Ox3. Able to voice needs. Pt. refused Prevnar-13 as ordered, stating I always keep up with my vaccines, I'm sure I just got that not long ago. Pt. states is where I go for all of my vaccines, I don't need anymore right now. Denies further requests. Call light in reach.
[2021-04-29 21:31] LABS: Bedside Glucose 141 mg/dL (70-110)
[2021-04-30] MEDS: oxyCODONE 5 MG Tablet PO ×3 (04:02→22:59)
[2021-04-30 05:38] VITALS: BP 121/63; PULSE 88
[2021-04-30] MEDS: Metoprolol(XL)Succ 25 MG Tablet PO (05:38)
[2021-04-30] MEDS: Cholecalciferol (VIT D3) 25 MCG TABLET (1,000 UNITS) PO (05:38)
[2021-04-30] MEDS: APIXABAN 2.5 MG TABLET PO ×2 (05:38→16:59)
[2021-04-30] MEDS: Pantoprazole Sodium 20 MG Tablet PO (05:38)
[2021-04-30] MEDS: NYSTATIN 500,000 UNIT/5 ML UDC 500000 UNIT PO ×4 (05:38→21:12)
[2021-04-30] MEDS: metFORMIN (XR) 500 MG Tablet 1500 MG PO (08:10)
[2021-04-30] MEDS: ALECTINIB HCL 150 MG 300 MG PO ×2 (08:10→16:58)
[2021-04-30] MEDS: Ferrous Sulfate 325 MG Tablet PO (08:11)
[2021-04-30] MEDS: Allopurinol 300 MG Tablet PO (08:11)
[2021-04-30 09:39] LABS: Hematocrit 21.4 % (37-47); Hemoglobin 7.1 g/dL (12.0-15.0)
--- NOTE | 2021-04-30 13:12 | NURSING ---
dr moulton updated on HGB 7.1, new order to administer 2 units blood tomorrow. H/H on 05/02/21. pt updated.
[2021-04-30 15:50] LABS: Bedside Glucose 141 mg/dL (70-110)
[2021-04-30 15:57] VITALS: BP 141/54; PULSE 87; RESP 20; TEMP 36.7; O2SAT 95
[2021-04-30 16:01] VITALS: PULSE 87; RESP 20; O2SAT 95
[2021-04-30 21:21] LABS: Bedside Glucose 140 mg/dL (70-110)
[2021-05-01 06:26] VITALS: BP 134/61; PULSE 87
[2021-05-01] MEDS: Metoprolol(XL)Succ 25 MG Tablet PO (06:26)
[2021-05-01] MEDS: Pantoprazole Sodium 20 MG Tablet PO (06:26)
[2021-05-01] MEDS: NYSTATIN 500,000 UNIT/5 ML UDC 500000 UNIT PO ×4 (06:26→21:02)
[2021-05-01] MEDS: APIXABAN 2.5 MG TABLET PO ×2 (06:27→18:04)
[2021-05-01] MEDS: Cholecalciferol (VIT D3) 25 MCG TABLET (1,000 UNITS) PO (06:29)
[2021-05-01 06:30] LABS: Bedside Glucose 115 mg/dL (70-110)
--- NOTE | 2021-05-01 06:34 | NURSING ---
Pt c/o pain to knee at 4/10 with bed mobility. Offered Tylenol and pt refuses stating, Tylenol does nothing for me. I will will until the pain becomes worse. Pt also questions why her Vitamin D and K supplement has not been ordered. Informed pt that Vitamin K counteracts the effect of Eliquis. She verbalizes understanding.
[2021-05-01] MEDS: oxyCODONE 5 MG Tablet PO ×3 (06:55→21:02)
[2021-05-01] MEDS: Allopurinol 300 MG Tablet PO (08:44)
[2021-05-01] MEDS: Ferrous Sulfate 325 MG Tablet PO (08:44)
[2021-05-01] MEDS: ALECTINIB HCL 150 MG 300 MG PO ×2 (08:45→18:05)
--- NOTE | 2021-05-01 08:58 | NURSING ---
pt refused to take metformin, pt states it gives her diarrhea and she will be going for a blood transfusion today.
[2021-05-01] MEDS: Hydrocortisone 2.5% Crm 1 APPLIC TOPICAL (12:29)
[2021-05-01 13:13] VITALS: PULSE 84; RESP 16; O2SAT 95
--- NOTE | 2021-05-01 14:35 | NURSING ---
Patient transported to infusion center via wheelchair and staff at 1330.
[2021-05-01 15:04] VITALS: BP 127/50; PULSE 84; RESP 16; TEMP 36.6; O2SAT 95
--- NOTE | 2021-05-01 15:15 | NURSING ---
Resident and son, Woody, notified of 2 staff members testing positive for COVID.
[2021-05-01 21:41] LABS: Bedside Glucose 166 mg/dL (70-110)
[2021-05-02] MEDS: oxyCODONE 5 MG Tablet PO ×4 (03:07→23:56)
[2021-05-02] MEDS: APIXABAN 2.5 MG TABLET PO ×2 (05:33→17:06)
[2021-05-02] MEDS: Pantoprazole Sodium 20 MG Tablet PO (05:33)
[2021-05-02] MEDS: Cholecalciferol (VIT D3) 25 MCG TABLET (1,000 UNITS) PO (05:33)
[2021-05-02] MEDS: NYSTATIN 500,000 UNIT/5 ML UDC 500000 UNIT PO ×4 (05:33→21:14)
[2021-05-02 05:34] VITALS: BP 115/51; PULSE 78
[2021-05-02 06:04] LABS: Hematocrit 26.2 % (37-47); Hemoglobin 8.5 g/dL (12.0-15.0)
[2021-05-02 06:41] LABS: Bedside Glucose 127 mg/dL (70-110)
[2021-05-02] MEDS: metFORMIN (XR) 500 MG Tablet 1500 MG PO (07:58)
[2021-05-02] MEDS: ALECTINIB HCL 150 MG 300 MG PO ×2 (07:58→17:06)
[2021-05-02] MEDS: Ferrous Sulfate 325 MG Tablet PO (07:58)
[2021-05-02] MEDS: Allopurinol 300 MG Tablet PO (07:58)
[2021-05-02] MEDS: Hydrocortisone 2.5% Crm 1 APPLIC TOPICAL ×2 (08:58→22:58)
[2021-05-02 13:28] VITALS: BP 123/54; PULSE 92; RESP 18; TEMP 36; O2SAT 98
[2021-05-02] MEDS: Acetaminophen 500 MG Tablet 1000 MG PO (14:11)
--- NOTE | 2021-05-02 16:12 | CHAPLAIN ---
Type of Pastoral Visit _x__ Initial Visit ___ Follow-up Visit ___ On-call Visit ___ General Patient Visit ___ Spiritual Assessment ___ Family Conference ___ Bereavement ___ Rapid Response ___ Code Blue ___ Other (describe below) Pastoral Care Referral From _x__ Patient ___ Family ___ Nurse ___ Physician ___ Senior Design Engineering Specialist ___ Head Chopper ___ Other (describe below) Sacrament/Intervention _x__ Active listening ___ Anointing ___ Muslim ___ Bereavement ___ Communion ___ Shelly exploration ___ _x__ Life review _x__ Prayer ___ Reconciliation ___ Sacrament of Sick ___ Supportive presence ___ Wedding ___ Other (describe below) Pastoral Comments patient states that some times are better than others for her emotionally; patient expresses thanks for the visit and welcomed a prayer
--- NOTE | 2021-05-02 17:20 | PHA.CONS1_ITS ---
Progress Note - Pharmacy Subjective: TCU ADMISSION Objective: Allergies codeine Adverse Reaction (Severe, Verified 04/25/21 09:11) hyper choline fenofibrate [From Trilipix] Adverse Reaction (Intermediate, Verified 04/25/21 09:11) Pain in joints fenofibrate [From Tricor] Adverse Reaction (Intermediate, Verified 04/25/21 09:11) muscle pain Current Medications Generic Name Dose Route Start Last Admin Trade Name Freq PRN Reason Stop Dose Admin Acetaminophen 1,000 mg 04/27/21 20:49 05/02/21 14:11 Acetaminophen 500 Mg Tablet PO 1,000 mg Q6H PRN PRN Administration Pain Score 1-5 Allopurinol 300 mg 04/28/21 08:00 05/02/21 07:58 Allopurinol 300 Mg Tablet PO 300 mg DAILYCM GIOVANY Administration Apixaban 2.5 mg 04/27/21 18:00 05/02/21 17:06 Apixaban 2.5 Mg Tablet PO 05/09/21 23:55 2.5 mg BID GIOVANY Administration Bisacodyl 10 mg 04/27/21 20:49 Bisacodyl 5 Mg Tablet PO DAILY PRN PRN Constipation Calcium Carbonate 500 mg 04/28/21 12:53 04/29/21 12:00 Calcium Carbonate 500 Mg Tablet PO 500 mg Q4H PRN PRN Administration HEARTBURN OR INDIGESTION Cholecalciferol 25 mcg 04/28/21 06:00 05/02/21 05:33 Cholecalciferol (Vit D3) 25 Mcg Tablet (1,000 Units) PO 25 mcg DAILY GIOVANY Administration Ferrous Sulfate 325 mg 04/28/21 08:00 05/02/21 07:58 Ferrous Sulfate 325 Mg Tablet PO 325 mg DAILYCM GIOVANY Administration Fluticasone Propionate 1 puff 04/28/21 08:00 Fluticasone Propionate 110 Mcg Aer.W.Adap INHALATION BID PRN SHORTNESS OF BREATH Hydrocortisone 1 applic 05/01/21 08:12 05/02/21 08:58 Hydrocortisone 2.5% Crm TOPICAL 1 applic BID PRN PRN Administration ITCHING Protocol Metformin HCl 1,500 mg 04/28/21 08:00 05/02/21 07:58 Metformin (Xr) 500 Mg Tablet PO 1,500 mg DAILYCM GIOVANY Administration Metoprolol Succinate 25 mg 04/28/21 06:00 05/02/21 05:34 Metoprolol(Xl)Succ 25 Mg Tablet PO Not Given DAILY GIOVANY Nystatin 500,000 unit 04/28/21 12:00 05/02/21 17:06 Nystatin 500,000 Unit/5 Ml Udc PO 05/08/21 12:01 500,000 unit 4X/DAY GIOVANY Administration Oxycodone HCl 5 mg 04/27/21 20:50 05/02/21 17:09 Oxycodone 5 Mg Tablet PO 5 mg Q4H PRN PRN Administration Pain Score 6-10 Pantoprazole Sodium 20 mg 04/28/21 06:00 05/02/21 05:33 Pantoprazole Sodium 20 Mg Tablet PO 20 mg DAILY GIOVANY Administration Polyethylene Glycol 17 gm 04/28/21 06:00 05/02/21 05:31 Polyethylene Glycol 3350 17 Gm Packet PO Not Given DAILY GIOVANY Senna/Docusate Sodium 1 tablet 04/27/21 21:00 05/02/21 14:11 Senna/Docusate Sodium 1 Tablet PO Not Given BID GIOVANY Sodium Chloride 10 - 40 ml 04/27/21 15:09 0.9% Saline Lock 10 Ml Syringe IV UD PRN SALINE FLUSH Sodium Chloride 10 - 40 ml 05/01/21 13:30 0.9% Saline Lock 10 Ml Syringe IV UD PRN SALINE FLUSH Tuberculin PPD 0.1 ml 05/05/21 10:00 Tuberculin,Purif.Prot.Deriv. 50 Tu/Ml Vial ID 05/05/21 10:01 X1 ONE Problem List (Last Reviewed 04/27/21 @ 20:[address] Lucho Ricardo MD) Chronic obstructive pulmonary disease (Chronic) Metastatic lung cancer (metastasis from lung to other site) (Acute) Gastroesophageal reflux disease (Acute) Gout (Acute) Diabetes mellitus (Acute) Debility (Acute) Osteoarthritis of right knee (Acute) Vital Signs Temp Pulse Resp BP Pulse Ox 96.8 F L 92 18 123/54 H 98 05/02/21 13:28 05/02/21 13:28 05/02/21 13:28 05/02/21 13:28 05/02/21 13:28 Oxygen Delivery Method Room Air Weight: 73.482 kg Body Mass Index (BMI) 33.5 Sodium 133 mmol/L (136-145) L 04/28/21 05:16 Potassium 3.5 mmol/L (3.5-5.1) 04/28/21 05:16 Chloride 99 mmol/L (98-107) 04/28/21 05:16 Carbon Dioxide 26.0 mmol/L (21.0-32.0) 04/28/21 05:16 Anion Gap 8 (5-15) 04/28/21 05:16 BUN 17 mg/dL (7-18) 04/28/21 05:16 Creatinine 0.92 mg/dL (0.55-1.02) 04/28/21 05:16 Est GFR (MDRD) Af Amer 77 mL/min (>60) 04/28/21 05:16 Est GFR (MDRD) Non-Af 63 mL/min (>60) 04/28/21 05:16 BUN/Creatinine Ratio 18.4 RATIO (10-20) 04/28/21 05:16 Glucose 122 mg/dL (74-106) H 04/28/21 05:16 Assessment/Plan: 1. Pain: Tylenol 1g PO Q6h PRN Pain 1-5, Oxycodone 5mg PO Q4h PRN Pain 6-10. Please continue to monitor for increased/decreased s/s pain, PRN medication usage. 2. Type II Diabetes: Metformin XR 1500mg PO Daily. Please continue to monitor fo r S/S hypoglycemia, Blood glucose, A1c every three months as clinically indicated, and renal function. 3. Hypertension: Metoprolol XL 25mg PO Daily. Please continue to monitor BP, pulse. 4. COPD: Flovent 1 puff BID PRN. Please continue to monitor for S/S exacerbations, S/S medication effectiveness, PRN usage. 5. GERD: Protonix 20mg PO Daily, Tums 1 tab PO Q4h PRN. Please continue to monitor for PRN medication needs, S/S GERD Flare-up. May also implement non- pharmacologic therapies to help decrease GERD flare-ups. 6. Gout: Allopurinol 300mg PO Daily. Please continue to monitor for gout flare- ups, renal function. 7. Thrush: Nystatin 500,000 unit PO 4x/day thru 05/08/21. Please continue to monitor for resolution of symptoms, encourage pt to rinse mouth out when using Flovent inhaler to prevent reoccurrence. 8. DVT Prophylaxis: Eliquis 2.5mg PO BID thru 05/09/21. Please continue to monitor for S/S bleeding/bruising, s/s blood clot, especially given recent surgical procedure. 9. General Wellness: Cholecalciferol 25mcg PO Daily, Ferrous sulfate 325mg PO Daily. Please continue to monitor iron studies, H/H, and vitamin d levels as clinically indicated. Psychotropic Medications: NONE Unnecessary Medications: NONE Bowel Regimen: Miralax 17g PO Daily, Senna/Docusate 1 tab PO BID, Dulcolax 10mg PO Daily PRN. The patient has refused all doses of scheduled medication for >2 days. Please consider changing from scheduled to PRN if clinically appropriate, thank you. Date of Note:: 05/02/21
[2021-05-02 21:40] LABS: Bedside Glucose 123 mg/dL (70-110)
[2021-05-03] MEDS: APIXABAN 2.5 MG TABLET PO ×2 (05:15→17:28)
[2021-05-03] MEDS: Cholecalciferol (VIT D3) 25 MCG TABLET (1,000 UNITS) PO (05:16)
[2021-05-03] MEDS: Pantoprazole Sodium 20 MG Tablet PO (05:16)
[2021-05-03] MEDS: Polyethylene Glycol 3350 17 GM PACKET PO (05:17)
[2021-05-03] MEDS: NYSTATIN 500,000 UNIT/5 ML UDC 500000 UNIT PO ×4 (05:20→20:32)
[2021-05-03 05:21] VITALS: BP 121/48; PULSE 83
[2021-05-03 06:31] LABS: Bedside Glucose 113 mg/dL (70-110)
[2021-05-03] MEDS: ALECTINIB HCL 150 MG 300 MG PO ×2 (08:20→17:27)
[2021-05-03] MEDS: metFORMIN (XR) 500 MG Tablet 1500 MG PO (08:20)
[2021-05-03] MEDS: Ferrous Sulfate 325 MG Tablet PO (08:20)
[2021-05-03] MEDS: Allopurinol 300 MG Tablet PO (08:20)
[2021-05-03] MEDS: oxyCODONE 5 MG Tablet PO ×3 (09:24→20:30)
[2021-05-03 10:42] VITALS: BP 149/64; PULSE 90; RESP 16; TEMP 37.2; O2SAT 94
[2021-05-03] MEDS: Calcium Carbonate 500 MG Tablet PO (12:36)
[2021-05-03] MEDS: Hydrocortisone 2.5% Crm 1 APPLIC TOPICAL (15:24)
--- NOTE | 2021-05-03 16:44 | CASEMGMT ---
Social Work IDT met with patient, son and via conference call with dtr for care plan meeting. Discussed patient's progress in PT/OT and nursing. Pt progressing well. Explained [employer] insurance issued LCD 05/05, [place] 05/06. Explained appeal rights. Pt nervous about being home alone, completing flight of steps alone to 2nd floor and monitoring labs at home. Discussed options and interventions to assist with making home set up more convenient temporarily with team. Son to get [facility] installed, therapy to practice flight of steps and tub transfers. Pt agreeable to start with [facility] to help with transition at home then transfer to outpatient. Provided resources for [facility] transport van, per pt request. Pt agreeable. Pt requesting [facility]. Referral made for PT/OT/SN/SANCHES. Pt requesting [facility]. Referral made to [facility]. Son or dtr to transport. Pt to discuss medical concerns and questions with this evening and then determine if she would like to appeal or not. Will plan on DC. Plan: DC home alone 05/06, [facility] PT/OT/SN/SANCHES, [facility] Reva Oscar, DECORATION CHECKER MIRIAM
[2021-05-03] MEDS: Senna/Docusate Sodium 1 Tablet PO (17:28)
[2021-05-03 18:41] VITALS: PULSE 82; RESP 16; O2SAT 96
--- NOTE | 2021-05-03 20:23 | DS.PCM_ITS ---
Providers Date of Admission: 04/27/21 Primary Care Physician: Dr. Katie Fernández DO Reason For Visit: R TOTAL KNEE Diagnosis Discharge Diagnosis (1) Debility: Status: Acute Code(s): R53.81 - Other malaise (2) Osteoarthritis of right knee: Status: Acute Code(s): M17.11 - Unilateral primary osteoarthritis, right knee Qualifiers: Osteoarthritis type: primary Qualified Code(s): M17.11 - Unilateral primary osteoarthritis, right knee (3) Diabetes mellitus: Status: Acute Code(s): E11.9 - Type 2 diabetes mellitus without complications (4) Gout: Status: Acute Code(s): M10.9 - Gout, unspecified (5) Gastroesophageal reflux disease: Status: Acute Code(s): K21.9 - Gastro-esophageal reflux disease without esophagitis (6) Metastatic lung cancer (metastasis from lung to other site): Status: Acute Code(s): C34.90 - Malignant neoplasm of unspecified part of unspecified bronchus or lung (7) Chronic obstructive pulmonary disease: Status: Chronic Code(s): J44.9 - Chronic obstructive pulmonary disease, unspecified Medications at Discharge Home Medications alectinib [Alecensa] 2 cap PO BID 03/03/18 metoprolol succinate [Toprol XL] 25 mg PO DAILY 03/03/18 allopurinol 300 mg PO DAILY 11/28/20 omeprazole 20 mg PO DAILY 11/28/20 metformin 1,500 mg PO DAILY 03/07/21 Dulera 1 puff INHALATION BID 04/04/21 vitamin D3-vitamin K2 1 cap PO DAILY 04/04/21 Eliquis 2.5 mg PO BID 3 Days #6 tab 05/03/21 acetaminophen 1,000 mg PO Q6H PRN PRN #0 tab 05/03/21 calcium carbonate 500 mg PO Q4H PRN PRN #0 tab 05/03/21 ferrous sulfate [FeroSul] 325 mg PO DAILYCM 30 Days #30 tab 05/03/21 oxycodone 5 mg PO Q4H PRN PRN 7 Days #42 tab 05/03/21 polyethylene glycol 3350 17 g PO DAILY #0 ea 05/03/21 sennosides-docusate sodium [Stool Softener-Stimulant Laxat] 1 tab PO BID #0 tab 05/03/21 Hospital Course Operations total knee replacement (Right.) Procedures None Summary of Care Provided Minutes Spent on Discharge: 35 Hospital Course: 70 year old female with below past medical history hospitalized for right total knee replacement 04/25/[address] Meyers, admitted to TCU with debility, here for rehabilitation, strengthening, prior to discharge home alone. Resident transfused 1 unit PRBC for postoperative anemia with good results. 05/01/2021 Doppler ultrasound right lower extremity NEGATIVE for DVT. Discharge home alone 05/06/2021, [facility] PT/OT/SN/SANCHES, Front Wheeled Walker. Physical Exam Const alert and oriented x3 General Appearance: cooperative HEENT normocephalic Eyes PERRL and EOMs intact bilaterally Neck supple, no JVD and no carotid bruits Resp normal respiratory effort, normal air movement and clear to auscultation bilaterally Cardio regular rate and regular rhythm GI normal to inspection, nondistended, normoactive bowel sounds, non-tender and non-distended Extremity normal capillary refill General Extremity: Negative for edema Skin no rashes or lesions noted General Skin Exam: no breakdown Psych affect normal Appearance: appropriate Weight / BMI Weight Weight: 73.482 kg Body Mass Index (BMI) 33.5 ABG / Lab / Microbiology Data Result Diagrams: 05/02/21 05:31 04/28/21 05:16 Laboratory: Laboratory Results - last 24 hr 05/02/21 21:30: POC Glucose 123 H 05/03/21 06:17: POC Glucose 113 H D/C Instructions Discharge Diet: No restrictions Discharge Activity: Return to Normal Activity, May Shower and Use Walker Weight Bearing Status: Weight bearing as tolerated Call your doctor if you observe: Fever of 101 or Higher, Inability to urinate, Inability to have a bowel movement, Shortness of breath, Dizziness, Fainting spells, Chest pain and Uncontrolled pain Additional Instructions: Discharge home alone 05/06/2021, [facility] PT/OT/SN/SANCHES, Front Wheeled Walker. Please Follow Up With: Rafael Meyers DO When: As scheduled. Meaningful Use Info Meaningful Use Diagnoses (Choose all that apply): None applicable Discharge Plan Admission Admit Date/Time: 04/27/21 14:09 Primary Reason for Your Visit: Debility. Attending Provider: Davion,Lucho Chi Primary Care Provider: Katie Fernández Instructions Additional Instructions / Restrictions: Discharge home alone 05/06/2021, [facility] PT/OT/SN/SANCHES, Front Wheeled Walker. Discharge Orders/Prescriptions Prescriptions: New polyethylene glycol 3350 17 gram Powder In Packet 17 g PO DAILY Qty: 0 RF: 0 sennosides-docusate sodium [Stool Softener-Stimulant Laxat] 8.6-50 mg Tablet 1 tab PO BID Qty: 0 RF: 0 acetaminophen 500 mg Tablet 1,000 mg PO Q6H PRN PRN (Reason: Pain Score 1-5) Qty: 0 RF: 0 ferrous sulfate [FeroSul] 325 mg (65 mg iron) Tablet 325 mg PO DAILYCM 30 Days Qty: 30 RF: 0 calcium carbonate 200 mg calcium (500 mg) Tablet,Chewable 500 mg PO Q4H PRN PRN (Reason: HEARTBURN OR INDIGESTION) Qty: 0 RF: 0 oxycodone 5 mg Tablet 5 mg PO Q4H PRN PRN (Reason: Pain Score 6-10) 7 Days Qty: 42 RF: 0 Continued metoprolol succinate [Toprol XL] 25 MG tablet extended release 24 hr 25 mg PO DAILY RF: 0 Alecensa 150 MG capsule 2 cap PO BID RF: 0 omeprazole 20 mg capsule,delayed release(DR/EC) 20 mg PO DAILY RF: 0 allopurinol 300 mg tablet 300 mg PO DAILY RF: 0 vitamin D3-vitamin K2 1,250-200 mcg Capsule 1 cap PO DAILY RF: 0 Dulera 100-5 mcg/actuation Hfa Aerosol Inhaler 1 puff INHALATION BID RF: 0 metformin 500 mg Tablet Extended Release 24 Hr 1,500 mg PO DAILY RF: 0 Eliquis 2.5 mg tablet 2.5 mg PO BID 3 Days Qty: 6 RF: 0 Discontinued ferrous sulfate 325 mg (65 mg iron) Capsule, Extended Release 65 mg PO DAILY RF: 0 oxycodone 5 mg Tablet 5 - 10 mg PO Q4H PRN PRN (Reason: Pain Score 4-10) 7 Days Qty: 60 RF: 0 Referrals / Follow Up: Katie Fernández, [Primary Care Provider] - Disposition Disposition (needs filled in before D/C Order can be placed): Home Health Service
[2021-05-03] MEDS: Acetaminophen 500 MG Tablet 1000 MG PO (21:28)
[2021-05-03 21:41] LABS: Bedside Glucose 172 mg/dL (70-110)
--- NOTE | 2021-05-04 04:32 | NURSING ---
Patient with peripheral line in Left AC. Line discontinued at this time due to patient not receiving any further transfusions while an inpatient. Will follow up with physician following discharge. Plans to discharge 05/06/21.
[2021-05-04] MEDS: oxyCODONE 5 MG Tablet PO ×3 (05:02→18:32)
[2021-05-04] MEDS: NYSTATIN 500,000 UNIT/5 ML UDC 500000 UNIT PO ×4 (05:02→20:40)
[2021-05-04] MEDS: Polyethylene Glycol 3350 17 GM PACKET PO (05:02)
[2021-05-04 05:03] VITALS: BP 155/78; PULSE 82
[2021-05-04] MEDS: Pantoprazole Sodium 20 MG Tablet PO (05:03)
[2021-05-04] MEDS: Cholecalciferol (VIT D3) 25 MCG TABLET (1,000 UNITS) PO (05:03)
[2021-05-04] MEDS: APIXABAN 2.5 MG TABLET PO ×2 (05:03→16:53)
[2021-05-04] MEDS: Senna/Docusate Sodium 1 Tablet PO ×2 (05:03→16:54)
[2021-05-04] MEDS: Metoprolol(XL)Succ 25 MG Tablet PO (05:03)
[2021-05-04 06:51] LABS: Bedside Glucose 121 mg/dL (70-110)
[2021-05-04] MEDS: metFORMIN (XR) 500 MG Tablet 1500 MG PO (08:32)
[2021-05-04] MEDS: Allopurinol 300 MG Tablet PO (08:32)
[2021-05-04] MEDS: Ferrous Sulfate 325 MG Tablet PO (08:32)
[2021-05-04] MEDS: ALECTINIB HCL 150 MG 300 MG PO ×2 (08:33→16:53)
[2021-05-04] MEDS: Acetaminophen 500 MG Tablet 1000 MG PO ×2 (08:39→22:40)
--- NOTE | 2021-05-04 09:25 | CASEMGMT ---
Social Work Followed up with pt to ensure she got the answers from Dr. Ricardo and if she wants to appeal. Pt confirmed. Stated her son already made adjustments at her home, and the steps went better than she expected. So has decided not to appeal and DC home 05/06 as planned. Reva Oscar, BEEF FARMER BRANCH MANAGER
[2021-05-04] MEDS: Hydrocortisone 2.5% Crm 1 APPLIC TOPICAL ×2 (10:42→22:30)
[2021-05-04 13:17] VITALS: BP 126/56; PULSE 79; RESP 18; TEMP 36.5; O2SAT 98
--- NOTE | 2021-05-04 17:42 | NURSING ---
DR COWAN NOTIFIED OF REDNESS TO RIGHT KNEE, LE. +2 EDEMA AND WARMTH AROUND KNEE. DR COWAN ASSESSED. N.O. FOR KEFLEX AND DOXYCYCLINE.
[2021-05-04] MEDS: Doxycycline 100 MG CAPSULE PO (20:38)
[2021-05-04] MEDS: Cephalexin 500 MG Capsule PO (20:39)
[2021-05-04 21:21] LABS: Bedside Glucose 169 mg/dL (70-110)
[2021-05-05] MEDS: oxyCODONE 5 MG Tablet PO ×5 (00:29→22:24)
[2021-05-05 05:31] VITALS: BP 133/51; PULSE 72
[2021-05-05] MEDS: Doxycycline 100 MG CAPSULE PO ×2 (05:34→16:30)
[2021-05-05] MEDS: Cephalexin 500 MG Capsule PO ×2 (05:34→16:30)
[2021-05-05] MEDS: APIXABAN 2.5 MG TABLET PO ×2 (05:34→16:30)
[2021-05-05] MEDS: Pantoprazole Sodium 20 MG Tablet PO (05:34)
[2021-05-05 05:35] VITALS: PULSE 72
[2021-05-05] MEDS: Cholecalciferol (VIT D3) 25 MCG TABLET (1,000 UNITS) PO (05:35)
[2021-05-05] MEDS: Metoprolol(XL)Succ 25 MG Tablet PO (05:35)
[2021-05-05] MEDS: Senna/Docusate Sodium 1 Tablet PO ×2 (05:35→16:30)
[2021-05-05] MEDS: NYSTATIN 500,000 UNIT/5 ML UDC 500000 UNIT PO ×4 (05:36→20:39)
[2021-05-05 05:47] LABS: Absolute Lymphocyte Count 2.36 X10^3/uL (0.83-4.51); Basophil# 0.07 X10^3/uL; Basophil% 0.6 % (0-1); Hematocrit 26.4 % (37-47); Hemoglobin 8.5 g/dL (12.0-15.0); Lymphocyte # 2.36 X10^3/ul (0.83-4.51); Lymphocyte % 20.2 % (19-41); Mean Corp Hgb Conc 32.2 g/dL (32-36); Mean Corpuscular Hgb 28.8 pg (27.0-32.0); Mean Corpuscular Volume 89.5 fL (81-99); Mean Platelet Vol. 9.6 fl (6.2-12.0); Monocyte# 0.89 X10^3/uL; Monocyte% 7.6 % (0-10); NRBC Flagged by Analyzer 0.2 % (0-5); Neutrophil # 7.99 X10^3/uL (2.7-7.7); Neutrophil % 68.3 % (47-70); Platelet Count 490 K/mm3 (150-450); RBC Distribution Width CV 16.9 % (11.6-14.6); RBC Distribution Width SD 54.3 fl (35.1-43.9); Red Blood Count 2.95 M/mm3 (4.2-5.4); White Blood Count 11.7 K/mm3 (4.4-11.0)
[2021-05-05 06:08] LABS: Anion Gap 7 (5-15); BUN 12 mg/dL (7-18); Calcium,Total 8.5 mg/dL (8.5-10.1); Chloride 103 mmol/L (98-107); Creatinine, Serum 0.67 mg/dL (0.55-1.02); EST Glomerular Filtration Rate 92 mL/min (>60); Est Glom Filt Rate - Afr Amer 112 mL/min (>60); Estimated Creatinine Clearance 58.99 ml/min; Glucose 105 mg/dL (74-106); Potassium 3.4 mmol/L (3.5-5.1); Sodium Level 139 mmol/L (136-145)
[2021-05-05 06:46] LABS: Bedside Glucose 143 mg/dL (70-110)
[2021-05-05] MEDS: ALECTINIB HCL 150 MG 300 MG PO ×2 (08:29→16:30)
[2021-05-05] MEDS: Allopurinol 300 MG Tablet PO (08:29)
[2021-05-05] MEDS: Ferrous Sulfate 325 MG Tablet PO (08:29)
[2021-05-05] MEDS: metFORMIN (XR) 500 MG Tablet 1500 MG PO (08:29)
--- NOTE | 2021-05-05 08:39 | NURSING ---
Dr Meyers office notified of pt increased redness/warm to RT leg, pt started on doxy and keflex yesterday evening. pt c/o increase pain as well. pt resting in bed, call light in reach. Dr Meyers to be in to assess pt leg 10:30-11am today. pt updated and very appreciative.
--- NOTE | 2021-05-05 10:15 | OP.PCM_ITS ---
Report of Operation Date of Procedure: 04/25/21 Description of Surgical Findings:: Preoperative diagnosis: Right knee DJD Postoperative diagnosis: [Same] Procedure: Right total knee arthroplasty CT guided Robotic Assisted Implant: [place] triathlon [cemented], Complications: None Condition: Stable to PACU Estimated blood loss: 150 cc Indication for procedure: This is a 70-year-old female with long standing degenerative joint disease of the knee who has failed conservative treatment and wished to proceed with elective total knee arthroplasty. Risk benefits and alternatives were reviewed including; risk of bleeding, infection, nerve artery and tissue damage, continued pain, postoperative stiffness, venous thromboembolism, need for postoperative rehabilitation, mechanical feel to the knee, and expected postoperative course. The pre- operative CT and templating was performed with component sizing. Procedure: The patient was met in the preoperative holding area. The operative extremity was identified by both patient and physician and was marked. Patient was met by anesthesia. An adductor canal block was placed by anesthesia [postoperatively] the patient was brought back to the operating room on a wheeled cart and transferred to the operating table in the supine position. Anesthesia was started. A well-padded tourniquet was placed on the operative extremity. The patient was prepped and draped in the usual sterile fashion. A timeout was called to ensure the proper patient procedure and extremity were being contemplated. An esmarch was used to exsanguinate the extremity. The tourniquet was inflated. A 10 blade scalpel was used to make a midline incision down through the skin and subcutaneous tissue. Skin retractors placed. Bovie and Aquamantis were used to perform meticulous hemostasis. full-thickness flaps were elevated medial and lateral along the joint capsule. A deep blade scalpel was used to perform a medial parapatellar arthrotomy. The knee was brought to full extension. A bovie was used to release the soft tissues off the most proximal aspect of the medial tibial plateau, a three-quarter inch curved osteotome was also used in this process. The infrapatellar fat pad was excised. [The suprapatellar fat pad was excised partially anteriorolateraly and portion the anterioromedial pad was elevated from the femur]. At this point our intra- articular femoral array was placed at a 45 degree angle proximal and posterior to the medial epicondyle. femoral checkpoint was placed at this time. Our tibial array was placed greater than 1 hands breath below the incision at a 20 degree angle stab incisions were made with a 15 blade scalpel and pins were p laced and attached to the tibial array , tibial checkpoint was placed in the proximal tibial metaphysis. Tourniquet was let down. At this point registration gordon were taken throughout the knee . Once the knee was registered we then tensioned the medial and lateral ligaments in extension and 90 degrees of flexion. We then used these numbers to adjust our components within parameters to balance the knee in both flexion and extension once this was done on our monitor we then proceeded with using the robotic arm to make our tibial plateau cut, anterior and posterior chamfer and distal femur cuts. we removed the cut fragments with the use of a bovie and Hemanth, we did use a lamina stone spreader operator to insure we visualized and removed all posterior osteophytes and at this time also used the Aquamantis on the posterior joint capsule. we then trialed and achieved the desired plan with a well-balanced knee. we used the green probe to kim the corresponding tibial rotation based on our CT template. Lug holes were drilled in the femur the tibia preparation was completed with the appropriate sized base plate pinned based on previous rotation kim. An appropriate sized fin punch was used on the tibia and the patella was prepared by first using a caliper to ensure sufficient bone stock and a patellar reamer to remove the desired amount of bone. lug holes drilled for an [asymmetric poly]. We then brought the knee through range of motion with excellent patellar tracking. We thoroughly irrigated the knee. Trial components were removed a posterior capsular injection was preformed with our standard cocktail. In addition the aqua Mantis was also used to aid in hemostasis. Betadine rinse was allowed to sit and washed out completely. Components were cemented with standard technique and finger tapping all bony surfaces were well dried first. Aricept rinse was then used followed by several more liters of irrigation after it was allowed to sit. The joint capsule was closed with #1 Ethibond [id number] followed by Vicryl in the subcutaneous tissues [with denise in the skin]. Arrays and checkpoints were removed prior to closure all counts were correct stab incisions were closed with a staple standard dressing in the form of Mepilex AG for the main incision and a small Mepilex over the pin holes. Thigh-high DARIUS hose applied over top of dressing. Patient tolerated the procedure well and was directed to PACU in stable condition . [there were no intraoperative complications].
[2021-05-05 13:56] VITALS: BP 157/53; PULSE 81; RESP 16; TEMP 36.7; O2SAT 97
[2021-05-05] MEDS: Acetaminophen 500 MG Tablet 1000 MG PO (16:34)
[2021-05-05 21:26] LABS: Bedside Glucose 144 mg/dL (70-110)
[2021-05-05 22:53] VITALS: PULSE 70; RESP 16; O2SAT 96
[2021-05-06] MEDS: Hydrocortisone 2.5% Crm 1 APPLIC TOPICAL (02:10)
[2021-05-06] MEDS: oxyCODONE 5 MG Tablet PO ×2 (04:26→10:25)
[2021-05-06 06:16] VITALS: BP 141/72; PULSE 78
[2021-05-06] MEDS: NYSTATIN 500,000 UNIT/5 ML UDC 500000 UNIT PO (06:17)
[2021-05-06 06:18] VITALS: PULSE 78
[2021-05-06] MEDS: Metoprolol(XL)Succ 25 MG Tablet PO (06:18)
[2021-05-06] MEDS: APIXABAN 2.5 MG TABLET PO (06:18)
[2021-05-06] MEDS: Cholecalciferol (VIT D3) 25 MCG TABLET (1,000 UNITS) PO (06:18)
[2021-05-06] MEDS: Cephalexin 500 MG Capsule PO (06:18)
[2021-05-06] MEDS: Doxycycline 100 MG CAPSULE PO (06:18)
[2021-05-06] MEDS: Pantoprazole Sodium 20 MG Tablet PO (06:18)
[2021-05-06 06:21] LABS: Bedside Glucose 119 mg/dL (70-110)
[2021-05-06 06:43] VITALS: PULSE 83; RESP 16; O2SAT 94
[2021-05-06] MEDS: ALECTINIB HCL 150 MG 300 MG PO (07:59)
[2021-05-06] MEDS: Allopurinol 300 MG Tablet PO (08:01)
[2021-05-06] MEDS: metFORMIN (XR) 500 MG Tablet 1500 MG PO (08:01)
[2021-05-06] MEDS: Ferrous Sulfate 325 MG Tablet PO (08:01)
[2021-05-06] MEDS: Calcium Carbonate 500 MG Tablet PO (08:03)
[2021-05-06 09:46] VITALS: BP 133/63; PULSE 83; RESP 18; TEMP 36.8; O2SAT 97
--- NOTE | 2021-05-09 09:22 | MDS.RN ---
Information for the mds was obtained from review of the clinical record, interview of resident, staff, and direct observation of resident's care.
== END 2021-05-06 10:30 | disposition home health service (06) | DRG 560 ==
PROVIDERS: Admitting Provider Family Medicine Geriatric Medicine; PCP Internal Medicine; Visit Provider Family Medicine Geriatric Medicine
DX: Z47.1 Aftercare following joint replacement surgery (principal); C77.0 Secondary and unspecified malignant neoplasm of lymph nodes of head, face and neck; C34.90 Malignant neoplasm of unspecified part of unspecified bronchus or lung; E11.9 Type 2 diabetes mellitus without complications; D50.9 Iron deficiency anemia, unspecified; E55.9 Vitamin D deficiency, unspecified; J44.9 Chronic obstructive pulmonary disease, unspecified; I10 Essential (primary) hypertension; M10.9 Gout, unspecified; M17.11 Unilateral primary osteoarthritis, right knee; K21.9 Gastro-esophageal reflux disease without esophagitis; Z87.891 Personal history of nicotine dependence; Z96.651 Presence of right artificial knee joint; Z79.84 Long term (current) use of oral hypoglycemic drugs; Z79.01 Long term (current) use of anticoagulants; Z79.899 Other long term (current) drug therapy
CPT/HCPCS: 36415; 80048; 82962; 85014; 85018; 85025; 86850; 86900; 86901; 86920; 86922; 97110; 97116; 97162; 97166; 97530; 97535; 97802

== ENCOUNTER 2021-05-01 09:17 | Outpatient (CLI) | payer MEDICARE, SELFPAY ==
--- NOTE | 2021-05-01 10:20 | VDLE_ITS ---
Reason For Study: Swelling RIGHT LEFT GSV is normal. CFV is compressible, spontaneous, phasic, CFV is compressible, spontaneous, phasic, competent, and demonstrates normal competent and demonstrates normal augmentation. augmentation. FV is compressible, spontaneous, phasic, competent and demonstrates normal augmentation. POP V is compressible, spontaneous, phasic, competent and demonstrates normal augmentation. T/P Trunk is compressible. PTV is compressible. RT PerV is compressible. Procedure This is a venous duplex using B-mode, color flow and spectral Doppler. Exam performed portable in patient room. A preliminary report was called and/or faxed to TCU. VL/Venous Duplex US, Unilateral Interpretation Summary There is no evidence of right lower extremity deep vein thrombosis. Right great saphenous vein appears patent and compressible segmentally. Normal flow patterns left common f emoral vein Ordering Physician: Lucho Ricardo Referring Physician: Katie Fernández M.D. Performed By: Alisa Dunne RVT
== END 2021-05-01 23:59 | disposition short-term general hospital (02) ==
PROVIDERS: PCP Internal Medicine; Referring Provider Family Medicine Geriatric Medicine; Visit Provider Family Medicine Geriatric Medicine
DX: Z00.00 Encounter for general adult medical examination without abnormal findings (principal)
CPT/HCPCS: 93971

== ENCOUNTER 2021-05-01 13:44 | Outpatient (CLI) | payer MEDICARE, SELFPAY ==
[2021-05-01 14:08] VITALS: BP 128/48; PULSE 81; RESP 16; TEMP 36.6; O2SAT 98
[2021-05-01 14:45] VITALS: BP 121/50; PULSE 83; RESP 16; TEMP 36.6; O2SAT 96
[2021-05-01 15:45] VITALS: BP 129/58; PULSE 87; RESP 16; TEMP 36.6; O2SAT 99
[2021-05-01 16:28] VITALS: BP 132/52; PULSE 83; RESP 16; TEMP 36.5; O2SAT 99
== END 2021-05-01 23:59 | disposition short-term general hospital (02) ==
LOC: MEDOUTP 13:44
PROVIDERS: PCP Internal Medicine; Referring Provider Family Medicine Geriatric Medicine; Visit Provider Family Medicine Geriatric Medicine
DX: Z01.812 Encounter for preprocedural laboratory examination (principal); M79.89 Other specified soft tissue disorders
CPT/HCPCS: 36430; 86850; 86900; 86901; 86920; 86922; 93971; J7040; P9016; A4216

== ENCOUNTER 2021-06-23 10:30 | Outpatient (RCR) | payer MEDICARE, SELFPAY ==
--- NOTE | 2021-05-25 13:39 | HP.PTEVAL_ITS ---
Patient's Visit Information LISETTE CRISOSTOMO is a 70 year old F referred to Physical Therapy by Dr. Rafael Meyers DO with a diagnosis of R TKA. Date of Evaluation: 05/25/21 Physical Therapist: Jacinto Hyde, PT, ATC - Visit Plan Frequency: 2-3x /Week Duration: 4-6 Weeks Plan: R knee PROM/mobs, stretching and strengthening, balance and proprio, core strengthening, nustep, and HEP - Subjective DOS: 04/25/21. Pt reports she had a R TKA performed at that time. Pt reports she had a Hx of R knee pain for approximately one year. Pt reports she is glad she had the surgery at this time. Pt notes she had a bad limp prior to the surgery which is mostly gone now. Pt notes she stayed in the hospital on TCE for 10 days after the surgery, and then had home health for 2 weeks. Pt notes she still has a lot of pain, but has been able to get off of her pain meds now for 2 days. No tingling or numbness in R LE at this time. Pt notes occasional sleep difficulty secondary to pain. Pt reports she lives in a 2 story home and can ascend the stairs fine, but has difficulty with descending her stairs. Pt reports she likes to garden and frequently attends exercise classes which she would like to be able to do again. Pt notes she would also like to be able to drive again soon. 2/10 pain at rest, 6/10 pain at worst (when she is sleeping or has been sitting for a long period of time. - Pain R knee Pain Intensity (Out of 10): 2 Pain Intensity Range: 6 - Objective Neuro: B LE sensation is WNL to light touch. B achilles reflex= 1/3. Girth at joint line: L knee 41 cm, R knee 43 cm. ROM: L knee 0-120 degrees, R knee 0-14-108. MMT: L knee flex= 17.8, ext= 26.4, R knee flex= 20.6, ext= 17.2. Gait: Pt is able to ambulate 680 feet without AD and a good pace. - Balance/Special Test Scores Lower Extremity Functional Score: 47 - Goals Goal 1:: Decrease R knee pain x 50% to aid with sleep Goal Time Frame: 4-6 Weeks Goal 2:: Increase R knee ROM x 15 degrees to aid with normalizing gait pattern Goal Time Frame: 4-6 Weeks Goal 3:: Increase R knee strength x 5-10 #F to aid with stair negotiation Goal Time Frame: 4-6 Weeks Goal 4:: I with HEP Goal Time Frame: 4-6 Weeks - Rehabilitation Potential Physical Therapy Diagnosis: R knee pain, weakness, and limited ROM secondary to R TKA Rehabilitation Potential: Excellent - Anticipated Interventions Patient/Client Instruction: Educate patient on: Condition, Plan of Care For the Purpose of:: To improve self management Therapeutic Exercise to Include: Strength training, Endurance training, Balance training, Flexibilty training, Passive ROM, Active ROM, Dynamic Lumbar Stabilization For the Purpose of:: To decrease pain, To increase ROM, To improve muscle p erformance and motor function Cryotherapy (ice pack, ice massage): Yes For the Purpose of:: To decrease pain Thank you for the opportunity to evaluate your patient. For Medicare and Medicare HMO plans, please review the plan of care and approve it. It will need to be FAXED BACK to us at [phone] for Medicare purposes. For Medicare only, by signing this I certify the plan of care. Please let me know if there are questions or concerns regarding this plan of care. Physician Signature: Date:
--- NOTE | 2021-06-23 10:58 | HP.PTDCSUM ---
It has been my pleasure to treat LISETTE CRISOSTOMO referred by Dr. Rafael Meyers DO, with the diagnosis of R TKA 04/25/21 for a total of 13 visit(s). Discharge Date: Please see the following information for a summary of their discharge status. Subjective: Pt reports she is ready for discharge. Only mild pain this date R knee Pain Intensity (Out of 10): 1 % Improvement: 90 Objective/Function: R knee pain 04/24. R knee MMMT: flex= 25, ext= 26. R knee ROM: 0-3-120. Pt is I with HEP. Rx goals achieved Goal 1:: Decrease R knee pain x 50% to aid with sleep Goal Progress: Goal Met Goal 2:: Increase R knee ROM x 15 degrees to aid with normalizing gait pattern Goal Progress: Goal Met Goal 3:: Increase R knee strength x 5-10 #F to aid with stair negotiation Goal Progress: Goal Met Goal 4:: I with HEP Goal Progress: Goal Met Plan: Discharge to HEP If there are questions or concerns regarding this patient's physical therapy, please feel free to call me at [phone]. Thank you for the referral of this patient. Sincerely, Jacinto Hyde, PT, ATC Balance/Gait/Functional tests - Balance/Special Test Scores Lower Extremity Functional Score: 59
== END 2021-06-23 14:12 | disposition home or self-care (01) ==
LOC: PT 10:30
PROVIDERS: PCP Internal Medicine; Referring Provider Orthopaedic Surgery; Visit Provider Orthopaedic Surgery
DX: Z47.1 Aftercare following joint replacement surgery (principal); Z96.651 Presence of right artificial knee joint
CPT/HCPCS: 97110; 97161; 97164

== ENCOUNTER 2021-07-04 10:07 | Outpatient (CLI) | payer MEDICARE, SELFPAY ==
[2021-07-04 10:13] LABS: Bacteria 0 SEEN /hpf (None Seen); Mucous, Urine 0 SEEN /hpf (<or=2+); Red Blood Cells-Urine 0 SEEN /hpf (0-5)
[2021-07-04 10:48] LABS: Absolute Lymphocyte Count 2.49 X10^3/uL (0.83-4.51); Absolute Neutrophil Count 4.8 X10^3/uL (2.0-7.7); Basophil# 0.08 X10^3/uL; Eosinophil# 0.33 X10^3/uL; Hematocrit 34.1 % (37-47); Hemoglobin 11.5 g/dL (12.0-15.0); Lymphocyte # 2.49 X10^3/ul (0.83-4.51); Lymphocyte % 30.2 % (19-41); Mean Corp Hgb Conc 33.7 g/dL (32-36); Mean Corpuscular Hgb 31.2 pg (27.0-32.0); Mean Corpuscular Volume 92.4 fL (81-99); Mean Platelet Vol. 11.3 fl (6.2-12.0); Monocyte# 0.46 X10^3/uL; Monocyte% 5.6 % (0-10); NRBC Flagged by Analyzer 0 % (0-5); Neutrophil # 4.83 X10^3/uL (2.7-7.7); Neutrophil % 58.5 % (47-70); Platelet Count 334 K/mm3 (150-450); RBC Distribution Width CV 15.7 % (11.6-14.6); RBC Distribution Width SD 52.7 fl (35.1-43.9); Red Blood Count 3.69 M/mm3 (4.2-5.4); White Blood Count 8.3 K/mm3 (4.4-11.0)
[2021-07-04 11:15] LABS: Vitamin B12 623 pg/mL (211-911); Vitamin D,25 Hydroxy 88.6 ng/mL
[2021-07-04 11:27] LABS: ALB/GLOB Ratio 0.8 RATIO (0.9-2.4); AST(SGOT) 21 U/L (15-37); Alanine Aminotransfer ALT/SGPT 20 U/L (13-56); Albumin, Serum 3.4 g/dL (3.2-5.0); Alkaline Phosphatase 104 U/L (45-117); Anion Gap 5 (5-15); BUN 14 mg/dL (7-18); BUN/Creat Ratio 14.1 RATIO (10-20); Calcium,Total 9.3 mg/dL (8.5-10.1); Chloride 108 mmol/L (98-107); Cholesterol 244 mg/dL (200); Creatinine, Serum 0.99 mg/dL (0.55-1.02); EST Glomerular Filtration Rate 59 mL/min (>60); Est Glom Filt Rate - Afr Amer 71 mL/min (>60); Globulin 4.3 g/dL (2.2-4.2); Glucose 97 mg/dL (74-106); High Density Lipoprotein 60 mg/dL; Potassium 4.1 mmol/L (3.5-5.1); Protein, Total 7.7 g/dL (6.4-8.2); Sodium Level 140 mmol/L (136-145); Triglycerides 217 mg/dL; Very Low Density Lipoprotein 43 mg/dL (5-40)
[2021-07-04 15:49] LABS: Color, Urine Yellow (Yellow); Glucose, Dipstick Normal (Normal); Ketone-Dipstick Negative (Negative); Leukocyte Esterase-Dipstick 100 /ul (Negative); Nitrite-Dipstick Negative (Negative); Occult Blood-Urine Negative /ul (Negative); Protein-Dipstick Negative (Negative); Specific Gravity, Urine 1.015 (1.002-1.030); Urine Bilirubin Dipstick Negative (Negative); Urine Clarity Sl. Cloudy (Clear); Urine Urobilinogen Normal (Normal)
[2021-07-04 15:58] LABS: Squamous Epithelial Cells - UA 0-5 SEEN /hpf (5-10); White Blood Cells 0-5 SEEN /hpf (0-5)
[2021-07-04 16:09] LABS: Microalbumin,Random Urine 8.6 mg/L (NO RANGE EST.); Microalbumin:Creatinine Ratio 13.2 mg/g CRE (<30 mg/g CRE)
== END 2021-07-04 23:59 | disposition home or self-care (01) ==
LOC: LAB 10:08 → LABSPEC 14:47
PROVIDERS: PCP Internal Medicine; Referring Provider Internal Medicine; Visit Provider Internal Medicine
DX: E55.9 Vitamin D deficiency, unspecified (principal); E11.9 Type 2 diabetes mellitus without complications; Z86.39 Personal history of other endocrine, nutritional and metabolic disease
CPT/HCPCS: 36415; 80053; 80061; 81001; 82043; 82306; 82570; 82607; 84443; 85025

== ENCOUNTER → 2021-09-19 | Outpatient (CLI) | payer MEDICARE, SELFPAY ==
--- NOTE | 2021-09-19 16:45 | MRI_ITS ---
EXAM: MR RIGHT LOWER EXTREMITY WITHOUT INTRAVENOUS CONTRAST, FOOT CLINICAL INDICATION: ENTHESOPATHY OF RIGHT FOOT TECHNIQUE: Multiplanar and multisequence MR images of the right foot without intravenous contrast. This report was created using [email or web address] technology. COMPARISON: None. FINDINGS: LIGAMENTS: MEDIAL COLLATERAL: Unremarkable. Intact. LATERAL COLLATERAL: Unremarkable. Intact. LISFRANC: Unremarkable. Intact. TENDONS: FLEXOR: Unremarkable. Intact. EXTENSOR: Unremarkable. Intact. PERONEAL: Unremarkable. Intact. TIBIALIS ANTERIOR: Unremarkable. Intact. TIBIALIS POSTERIOR: Unremarkable. Intact. MUSCLES: Unremarkable. No edema or myositis. FLUID: Unremarkable. No joint effusion. PLANTAR FASCIA: Unremarkable. Intact. BONES/JOINTS: There is degenerative arthrosis of the metatarsophalangeal joint of the hallux . Normal forefoot alignment. No fracture. No bone marrow edema. OTHER SOFT TISSUES: Unremarkable. MRI/Lower Ext/No Jt/w/o IMPRESSION: There is degenerative arthrosis of the metatarsophalangeal joint of the hallux . Electronically Signed: Jacinto Tariq MD at 18:43 EDT Reading Location ID and State: [facility] / [place] , Service support ,
== END | disposition home or self-care (01) ==
LOC: MRI 15:57
PROVIDERS: PCP Internal Medicine; Visit Provider Podiatrist
DX: M77.51 Other enthesopathy of right foot and ankle (principal)
CPT/HCPCS: 73718

== ENCOUNTER 2021-10-13 11:14 | Emergency (ER) | payer MEDICARE, SELFPAY ==
[2021-10-13 11:15] VITALS: BP 146/69; PULSE 108; RESP 16; TEMP 36.4; O2SAT 98; BMI 31.3
[2021-10-13 11:39] VITALS: BP 134/83; PULSE 94; RESP 14; O2SAT 98
[2021-10-13 11:42] VITALS: O2SAT 97
--- NOTE | 2021-10-13 11:46 | EDS_ITS ---
HPI HPI - URI History of Present Illness Chief Complaint: Shortness of Breath Informant: patient Onset/Context/Timing Onset: Yesterday Context: Gradual Onset Timing: Continuous Current Severity: Moderate Maximum Severity: Moderate Associated Symptoms Associated Symptoms: Positive for Myalgias and Nonproductive cough; Negative for Nausea, Vomiting, Diarrhea, Shortness of Breath, Chest Pain or Hemoptysis Narrative Narrative: SomePatient was on a bus trip developed fevers chills, myalgias, cough, wheeze yesterday. She went to the urgent care and had a positive COVID test today. She was vaccinated and she had COVID last year in February. She had monoclonal antibodies then. She was sent here because her heart rate was fast. She did not feel it. She has had no dyspnea. Her heart rate is not fast now. She has had no treatment since coming here from urgent care. She states she feels relatively well. She takes an oral targeted therapy for non-small cell lung cancer. ROS ROS ED Constitutional Constitutional ED: Reports body ache(s), chills, fever(s), headache(s) and malaise; Denies fatigue Eyes Eyes: Denies change in vision or diplopia ENT ENT ED: Denies rhinorrhea or sore throat Cardiovascular Cardiovascular: Denies chest pain or palpitations Respiratory/Chest Respiratory/Chest: Reports cough; Denies dyspnea or dyspnea on exertion Gastrointestinal Gastrointestinal: Denies abdominal pain, diarrhea, nausea or vomiting Genitourinary Genitourinary ED: Denies dysuria or hematuria Musculoskeletal Musculoskeletal: Denies back pain or neck pain Integumentary Denies abscess or rash Neurologic Neurologic: Reports headache(s); Denies paresthesias or weakness Psychiatric Psychiatric: Denies anxiety or suicidal thoughts [facility] Medical History Abnormal laboratory test Abnormal results of thyroid function studies Anemia Arthritis Back pain Cancer Encounter for screening for COVID-19 Former smoker Gastric reflux Gout History of echocardiogram History of edema History of pain when walking History of steroid therapy History of stress test Hypertension Metastatic lung carcinoma Non-small cell lung cancer metastatic to lymph node of head and neck region Wears contact lenses Wears glasses Home Medications alectinib 150 mg capsule (Alecensa) 2 cap PO BID LUNG CANCER 03/03/18 [History Last Taken 04/25/21] metoprolol succinate 25 mg tablet,extended release 24 hr (Toprol XL) 25 mg PO DAILY BP 03/03/18 [History Last Taken 04/25/21] allopurinol 300 mg tablet 300 mg PO DAILY GOUT 11/28/20 [History Last Taken Unknown] omeprazole 20 mg capsule,delayed release 20 mg PO DAILY GERD 11/28/20 [History Last Taken Unknown] metformin 500 mg tablet,extended release 24 hr 1,500 mg PO DAILY DIABETES 03/07/21 [History Last Taken Unknown] mometasone-formoterol HFA 100 mcg-5 mcg/actuation aerosol inhaler (Dulera) 1 puff inhalation BID LUNG CANCER 04/04/21 [History Last Taken Unknown] vitamin D3 1,250 mcg (50,000 unit)-vitamin K2 200 mcg capsule 1 cap PO DAILY SUPPLEMENT 04/04/21 [History Last Taken Unknown] acetaminophen 500 mg tablet 1,000 mg PO Q6H PRN PRN Pain Score 1-5 #0 tabs 05/03/21 [Rx Last Taken Unknown] calcium carbonate 200 mg calcium (500 mg) chewable tablet 500 mg PO Q4H PRN PRN HEARTBURN OR INDIGESTION #0 tabs 05/03/21 [Rx Last Taken Unknown] ferrous sulfate 325 mg (65 mg iron) tablet (FeroSul) 325 mg PO DAILYCM 30 days #30 tabs 05/03/21 [Rx Last Taken Unknown] polyethylene glycol 3350 17 gram oral powder packet 17 g PO DAILY #0 ea 05/03/21 [Rx Last Taken Unknown] sennosides 8.6 mg-docusate sodium 50 mg tablet (Stool Softener-Stimulant Laxative) 1 tab PO BID #0 tabs 05/03/21 [Rx Last Taken Unknown] doxycycline monohydrate 100 mg capsule 100 mg PO BID 8 days #16 caps 05/04/21 [Rx Last Taken Unknown] nystatin 100,000 unit/mL oral suspension 500,000 unit (5 mL) PO 4X/DAY 10 days #200 mL 05/04/21 [Rx Last Taken Unknown] ibuprofen 600 mg tablet 600 mg PO TID PRN pain #40 tabs 09/29/21 [Rx Last Taken Unknown] nirmatrelvir 300 mg (150 mg x 2)-ritonavir 100 mg tablet (EUA) (Paxlovid 300 mg () See Rx Instructions PO .COMPLEX #30 tabs 10/13/21 [Rx Last Taken Unknown] Allergy/AdvReac Type Severity Reaction Status Date / Time codeine AdvReac Severe hyper Verified 10/13/21 09:49 choline fenofibrate AdvReac Intermediate Pain in Verified 10/13/21 09:49 [From Trilipix] joints fenofibrate [From Tricor] AdvReac Intermediate muscle pain Verified 10/13/21 09:49 Family History Mother Cancer Hx breast CA. Father CVA (cerebral vascular accident) Surgical History History of bunionectomy of left great toe History of cholecystectomy History of total left knee replacement History of total left knee replacement Hx of colonoscopy Hx of lumpectomy Hx of tonsillectomy Social History household members: none Smoking Status: Former smoker how long ago did patient quit smoking: Quit 2016, smoked 1 ppd since 18 year old. alcohol intake: never substance use type: does not use EXAM Physical Exam Const Vital Signs: 10/13/21 11:15 10/13/21 11:39 10/13/21 11:42 Temperature 97.6 F L Temperature Source Temporal Pulse Rate 108 H 94 Respiratory Rate 16 14 Respiratory Effort Normal Respiratory Depth Normal Respiratory Pattern Normal Blood Pressure 146/69 H 134/83 H Blood Pressure Mean 94 100 Pulse Ox 98 98 Oxygen Delivery Method Room Air Room Air Room Air Positive well nourished and well developed Constitutional Narrative: Well-appearing, no distress General Appearance ED: well developed and NAD HEENT Reports moist mucous membranes normocephalic and atraumatic Eyes PERRL and EOMs intact bilaterally Neck full ROM, no lymphadenopathy, supple and no meningeal signs Resp normal respiratory effort and clear to auscultation bilaterally Cardio regular rate, regular rhythm and no murmurs Rate: Negative for tachycardic GI non-tender and non-distended Auscultation: normoactive bowel sounds Palpation: soft Back/Spine no CVA tenderness General Back: other FROM Extremity normal to inspection and no calf tenderness General Extremety ED: Negative for edema, pulses abnormal or tenderness General Extremity: Negative for edema or pulses abnormal Neuro oriented x3, CN's II-XII intact bilaterally and no sensory deficits noted Sensorium / Orientation: awake and alert Motor Exam: strength 5/5 throughout Psych mental status grossly normal Skin no rashes or lesions noted and no wounds MDM MDM MDM Narrative Medical decision making narrative: This patient is no longer tachycardic, she probably was having tachycardia related to her fever which now is gone. She did not feel palpitations or chest discomfort to suggest a dysrhythmia. She appears very well and the rest of her vital signs are normal, and she is NOT clinically septic. I discussed this with her. I do think it is reasonable to put her on Paxlovid given her past medical history, she does not have any medication interactions with this so she is given a prescription since she is within the first 5 days. We discussed reasons to return. Discharge Plan Triage Chief Complaint: Shortness of Breath ED Provider: Fabio Lombardi Dx/Rx/DC Orders Clinical Impression: COVID-19 Instructions: Coronavirus Disease 2019 (COVID-19): Caring for Yourself or Others Prescriptions: New Paxlovid (EUA) 300 mg (150 mg x 2)-100 mg tablet See Rx Instructions .ROUTE .COMPLEX Qty: 30 0RF Rx Instructions: take TWO 150 mg tablets of nirmatrelvir with ONE 100 mg tablet of ritonavir twice daily for 5 days Continued metoprolol succinate [Toprol XL] 25 MG tablet extended release 24 hr 25 mg PO DAILY Alecensa 150 MG capsule 2 cap PO BID omeprazole 20 mg capsule,delayed release(DR/EC) 20 mg PO DAILY allopurinol 300 mg tablet 300 mg PO DAILY Label Comments: TAKE 1 TABLET BY MOUTH EVERY DAY vitamin D3-vitamin K2 1,250-200 mcg Capsule 1 cap PO DAILY Dulera 100-5 mcg/actuation Hfa Aerosol Inhaler 1 puff INHALATION BID metformin 500 mg Tablet Extended Release 24 Hr 1,500 mg PO DAILY polyethylene glycol 3350 17 gram Powder In Packet 17 g PO DAILY Qty: 0 0RF sennosides-docusate sodium [Stool Softener-Stimulant Laxat] 8.6-50 mg Tablet 1 tab PO BID Qty: 0 0RF acetaminophen 500 mg Tablet 1,000 mg PO Q6H PRN PRN (Reason: Pain Score 1-5) Qty: 0 0RF ferrous sulfate [FeroSul] 325 mg (65 mg iron) Tablet 325 mg PO DAILYCM 30 Days Qty: 30 0RF calcium carbonate 200 mg calcium (500 mg) Tablet,Chewable 500 mg PO Q4H PRN PRN (Reason: HEARTBURN OR INDIGESTION) Qty: 0 0RF nystatin 100,000 unit/mL Suspension 500,000 unit PO 4X/DAY 10 Days Qty: 200 0RF doxycycline monohydrate 100 mg Capsule 100 mg PO BID 8 Days Qty: 16 0RF ibuprofen 600 mg tablet 600 mg PO TID PRN (Reason: pain) Qty: 40 0RF Rx Instructions: Do not take in conjunction with other NSAIDs. Tylenol is okay. Primary Care Provider: Katie Fernández Referrals: Katie Fernández DO [Primary Care Provider] - As Needed Activity Restrictions/Additional Instructions: Try to get a home portable pulse oximeter and closely watch your oxygen levels periodically. If you stay below 90% for more than a minute or so, and/or you are feeling like your breathing is getting worse, return to the emergency department for further evaluation. Quarantining for the person 5 days, then for days 6-10, you may be in public as long as you have an N95 mask on. You do not need to adjust the dosing of any of your other medications. Disposition Disposition: Home, Self Care
[2021-10-13 12:09] VITALS: BP 134/78; PULSE 89; RESP 14; TEMP 37.2; O2SAT 97
== END 2021-10-13 12:10 | disposition home or self-care (01) ==
LOC: ED 11:58
PROVIDERS: Emergency Provider Emergency Medicine; PCP Internal Medicine; Visit Provider Emergency Medicine
DX: U07.1 COVID-19 (principal); I10 Essential (primary) hypertension; K21.9 Gastro-esophageal reflux disease without esophagitis; M19.90 Unspecified osteoarthritis, unspecified site; Z79.84 Long term (current) use of oral hypoglycemic drugs; Z79.899 Other long term (current) drug therapy; Z87.891 Personal history of nicotine dependence
CPT/HCPCS: 99282

== ENCOUNTER → 2022-01-10 | Outpatient (CLI) | payer MEDICARE, SELFPAY ==
--- NOTE | 2022-01-10 10:07 | BI_ITS ---
MAMMOGRAPHY - BILATERAL SCREENING REASON FOR EXAM: Female, 71 years old. Routine annual screening examination. PERTINENT HISTORY: Mother with breast cancer. Aunts with breast cancer. TECHNIQUE: Digital bilateral breast cyndi (3D mammographic acquisition) in the CC and MLO projections. 2-D mediolateral oblique (MLO) and craniocaudad (CC) views of both breasts were obtained. CAD: Full Field Digital Mammography with Computer Added Detection was performed. COMPARISON: Comparison is made with prior study dated 01/06/2021 and 12/14/2019. FINDINGS: Breast Composition: There are scattered areas of fibroglandular density. There are no dominant masses or suspicious calcifications. Mild degree of residual architectural distortion in the upper slightly lateral aspect of the right breast incomplete with history of prior biopsy. Stable small benign-appearing bilateral axillary lymph nodes. No other significant abnormalities are identified. There has been no significant change since the prior study. BI/SCREENING MAMM (CAD), BILAT IMPRESSION: Stable bilateral screening mammogram. Yearly follow-up mammogram recommended. (A) ASSESSMENT CATEGORY: BIRADS Category 2: Benign. A letter regarding these results will be sent to the patient by the facility within 30 days. Approximately 10% of breast cancers are not detected by mammography. A normal mammogram should not delay biopsy of a clinically suspicious abnormality. [id number] Electronically Signed: Riccardo Vazquez MD at 11:35 EDT ,
== END | disposition home or self-care (01) ==
LOC: OPBI 10:06
PROVIDERS: PCP Internal Medicine; Visit Provider Internal Medicine
DX: Z12.31 Encounter for screening mammogram for malignant neoplasm of breast (principal); Z80.3 Family history of malignant neoplasm of breast
CPT/HCPCS: 77067

== ENCOUNTER → 2022-01-11 | Outpatient (CLI) | payer MEDICARE, SELFPAY ==
[2022-01-11 09:32] LABS: Red Blood Cells-Urine 0 SEEN /hpf (0-5)
[2022-01-11 11:18] LABS: Absolute Lymphocyte Count 2.53 X10^3/uL (0.83-4.51); Absolute Neutrophil Count 5.5 X10^3/uL (2.0-7.7); Basophil# 0.13 X10^3/uL; Basophil% 1.5 % (0-1); Color, Urine Yellow (Yellow); Glucose, Dipstick Normal (Normal); Hematocrit 33.6 % (37-47); Hemoglobin 11.1 g/dL (12.0-15.0); Ketone-Dipstick 5 mg/dl (Negative); Leukocyte Esterase-Dipstick 500 /ul (Negative); Lymphocyte # 2.53 X10^3/ul (0.83-4.51); Lymphocyte % 28.6 % (19-41); Mean Corpuscular Hgb 31.4 pg (27.0-32.0); Mean Corpuscular Volume 95.2 fL (81-99); Mean Platelet Vol. 11.4 fl (6.2-12.0); Monocyte# 0.61 X10^3/uL; Monocyte% 6.9 % (0-10); NRBC Flagged by Analyzer 0 % (0-5); Neutrophil # 5.52 X10^3/uL (2.7-7.7); Neutrophil % 62.4 % (47-70); Nitrite-Dipstick Negative (Negative); Occult Blood-Urine Negative /ul (Negative); Platelet Count 341 K/mm3 (150-450); Protein-Dipstick 30 mg/dl (Negative); RBC Distribution Width CV 15.9 % (11.6-14.6); RBC Distribution Width SD 54.4 fl (35.1-43.9); Red Blood Count 3.53 M/mm3 (4.2-5.4); Specific Gravity, Urine 1.015 (1.002-1.030); Urine Bilirubin Dipstick Negative (Negative); Urine Clarity Sl. Cloudy (Clear); Urine Urobilinogen Normal (Normal); White Blood Count 8.8 K/mm3 (4.4-11.0)
[2022-01-11 11:39] LABS: Bacteria 2+ /hpf (None Seen); Mucous, Urine 1+ /hpf (<or=2+); Squamous Epithelial Cells - UA 0-5 SEEN /hpf (5-10); White Blood Cells 0-5 SEEN /hpf (0-5)
[2022-01-11 11:41] LABS: Microalbumin,Random Urine 14.1 mg/L (NO RANGE EST.); Microalbumin:Creatinine Ratio 8.1 mg/g CRE (<30 mg/g CRE)
[2022-01-11 11:45] LABS: Vitamin D,25 Hydroxy 82.2 ng/mL
[2022-01-11 12:13] LABS: ALB/GLOB Ratio 0.7 RATIO (0.9-2.4); AST(SGOT) 26 U/L (15-37); Alanine Aminotransfer ALT/SGPT 29 U/L (13-56); Albumin, Serum 3.3 g/dL (3.2-5.0); Alkaline Phosphatase 94 U/L (45-117); Anion Gap 7 (5-15); BUN 15 mg/dL (7-18); BUN/Creat Ratio 16.4 RATIO (10-20); Calcium,Total 8.9 mg/dL (8.5-10.1); Chloride 106 mmol/L (98-107); Cholesterol 202 mg/dL (200); Creatinine, Serum 0.92 mg/dL (0.55-1.02); EST Glomerular Filtration Rate 64 mL/min (>60); Est Glom Filt Rate - Afr Amer 77 mL/min (>60); Globulin 4.6 g/dL (2.2-4.2); Glucose 91 mg/dL (74-106); High Density Lipoprotein 58 mg/dL; Potassium 3.9 mmol/L (3.5-5.1); Protein, Total 7.9 g/dL (6.4-8.2); Sodium Level 140 mmol/L (136-145); Thyroid Stim Hormone (TSH) 2.51 uIU/mL (0.358-3.74); Triglycerides 168 mg/dL; Very Low Density Lipoprotein 34 mg/dL (5-40)
== END | disposition home or self-care (01) ==
LOC: LAB 09:27
PROVIDERS: PCP Internal Medicine; Referring Provider Internal Medicine; Visit Provider Internal Medicine
DX: E11.9 Type 2 diabetes mellitus without complications (principal); E78.2 Mixed hyperlipidemia; E55.9 Vitamin D deficiency, unspecified
CPT/HCPCS: 36415; 80053; 80061; 81001; 82043; 82306; 82570; 84443; 85025

== ENCOUNTER → 2022-07-23 | Outpatient (CLI) | payer MEDICARE, SELFPAY ==
[2022-07-23 08:31] LABS: Color, Urine Yellow (Yellow); Glucose, Dipstick Normal (Normal); Ketone-Dipstick Negative (Negative); Leukocyte Esterase-Dipstick 100 /ul (Negative); Nitrite-Dipstick Negative (Negative); Occult Blood-Urine Negative /ul (Negative); Protein-Dipstick 15 mg/dl (Negative); Urine Bilirubin Dipstick Negative (Negative); Urine Clarity Sl. Cloudy (Clear); Urine Urobilinogen Normal (Normal)
[2022-07-23 08:32] LABS: Absolute Lymphocyte Count 2.74 X10^3/uL (0.83-4.51); Absolute Neutrophil Count 3.4 X10^3/uL (2.0-7.7); Basophil# 0.08 X10^3/uL; Basophil% 1.1 % (0-1); Eosinophil# 0.62 X10^3/uL; Eosinophils% 8.4 % (0-5); Hematocrit 35.1 % (37-47); Hemoglobin 11.1 g/dL (12.0-15.0); Lymphocyte # 2.74 X10^3/ul (0.83-4.51); Lymphocyte % 37.2 % (19-41); Mean Corp Hgb Conc 31.6 g/dL (32-36); Mean Corpuscular Hgb 30.3 pg (27.0-32.0); Mean Corpuscular Volume 95.9 fL (81-99); Mean Platelet Vol. 10.8 fl (6.2-12.0); Monocyte# 0.53 X10^3/uL; Monocyte% 7.2 % (0-10); NRBC Flagged by Analyzer 0 % (0-5); Neutrophil # 3.36 X10^3/uL (2.7-7.7); Neutrophil % 45.6 % (47-70); POSITIVE MORPHOLOGY YES; Platelet Count 307 K/mm3 (150-450); RBC Distribution Width CV 15.9 % (11.6-14.6); RBC Distribution Width SD 56.6 fl (35.1-43.9); Red Blood Count 3.66 M/mm3 (4.2-5.4); White Blood Count 7.4 K/mm3 (4.4-11.0)
[2022-07-23 08:46] LABS: Differential Indicated SCAN CRITERIA MET
[2022-07-23 08:54] LABS: Microalbumin,Random Urine 5.9 mg/L (NO RANGE EST.); Microalbumin:Creatinine Ratio 6.8 mg/g CRE (<30 mg/g CRE)
[2022-07-23 09:03] LABS: Differential Comment SCANNED
[2022-07-23 09:08] LABS: Vitamin B12 570 pg/mL (211-911)
[2022-07-23 09:21] LABS: ALB/GLOB Ratio 0.8 RATIO (0.9-2.4); AST(SGOT) 34 U/L (15-37); Alanine Aminotransfer ALT/SGPT 37 U/L (13-56); Albumin, Serum 3.4 g/dL (3.2-5.0); Alkaline Phosphatase 91 U/L (45-117); Anion Gap 4 (5-15); BUN 14 mg/dL (7-18); BUN/Creat Ratio 14.1 RATIO (10-20); Chloride 107 mmol/L (98-107); Cholesterol 196 mg/dL (200); Creatinine, Serum 0.99 mg/dL (0.55-1.02); EST Glomerular Filtration Rate 58 mL/min (>60); Est Glom Filt Rate - Afr Amer 70 mL/min (>60); Globulin 4.3 g/dL (2.2-4.2); Glucose 104 mg/dL (74-106); High Density Lipoprotein 58 mg/dL; Protein, Total 7.7 g/dL (6.4-8.2); Sodium Level 137 mmol/L (136-145); Triglycerides 173 mg/dL; Very Low Density Lipoprotein 35 mg/dL (5-40)
[2022-07-24 14:42] LABS: Vitamin D 1,25-Dihydroxy 37.4 pg/mL (24.8-81.5)
[2022-07-25 07:08] LABS: Free Kappa Light Chains 40.5 mg/L (3.3-19.4); Free Lambda Light Chains 33.3 mg/L (5.7-26.3)
== END | disposition home or self-care (01) ==
LOC: LAB 08:07
PROVIDERS: PCP Internal Medicine; Referring Provider Psychiatry & Neurology Neurology; Visit Provider Psychiatry & Neurology Neurology
DX: E11.9 Type 2 diabetes mellitus without complications (principal)
CPT/HCPCS: 36415; 80053; 80061; 81002; 82043; 82570; 82607; 82652; 82746; 83883; 84425; 84443; 85025

== ENCOUNTER → 2022-08-13 | Outpatient (CLI) | payer MEDICARE, SELFPAY ==
--- NOTE | 2022-08-13 14:33 | NEURO ---
NCS and/or EMG Patient Report Ordering Doctor: George Melton DATE OF SERVICE: 08/13/22 Indication: Bilateral foot pain of aching quality (right greater than left). Associated sensory disturbances of the great toes and soles of the feet. History of borderline diabetes for ~15 years. Evaluate for peripheral neuropathy. Findings: Nerve conduction studies were performed in the right and left lower extremity. The right peroneal motor study recording the extensor digitorum brevis showed a normal amplitude, normal distal latency and normal conduction velocity. No conduction block or focal slowing was present across the fibular neck. The right tibial motor study recording the abductor hallucis brevis showed a normal amplitude, normal distal latency and normal conduction velocity. The right sural sensory response showed a normal amplitude and conduction velocity. The right superficial peroneal sensory response showed a normal amplitude and conduction velocity. The right medial plantar response showed a normal amplitude and conduction velocity. The left peroneal motor study recording the extensor digitorum brevis showed a normal amplitude, normal distal latency and normal conduction velocity. No conduction block or focal slowing was present across the fibular neck. The left tibial motor study recording the abductor hallucis brevis showed a normal amplitude, normal distal latency and normal conduction velocity. The left sural sensory response showed a normal amplitude and conduction velocity. The left superficial peroneal sensory response showed a normal amplitude and conduction velocity. The left medial plantar response showed a borderline amplitude and normal conduction velocity. Needle EMG of the right lower extremity and lumbar paraspinal muscles was performed. No denervation was present in any muscle. All motor unit morphology, activation and recruitment patterns were normal. Needle EMG of the left lower extremity and lumbar paraspinal muscles was performed. No denervation was present in any muscle. All motor unit morphology, activation and recruitment patterns were normal. Impression: This is an essentially normal study for age. There is no electrophysiologic evidence of lumbosacral radiculopathy, plexopathy, or peripheral neuropathy of either the right or left lower extremity. Please note: the electrodiagnosis of radiculopathy is made on the basis of excluding peripheral nerve lesions on nerve conduction studies and the needle EMG demonstrating denervation and/or reinnervation in the distribution of one or more nerve roots (i.e., acute and/or chronic axonal loss). Thus, electrodiagnostic studies are insensitive in detecting radiculopathy in the absence of axonal loss (e.g., in the setting of compression resulting in intermittent ischemia or mechanical deformation; or demyelination without axonal loss). Thus, clinical correlation is required in the interpretation of this negative electrodiagnostic study for radiculopathy. Miguel Angel Martínez D.O. Multi Select Codes Neurology Neurology Interp Codes: 44459-77 Musc test done w/n test comp (interp) (Qty:2) and 41198-72 Nrv cnd test 9-10 studies (interp)
== END | disposition home or self-care (01) ==
PROVIDERS: PCP Internal Medicine; Referring Provider Podiatrist; Visit Provider Podiatrist
DX: G60.8 Other hereditary and idiopathic neuropathies (principal)
CPT/HCPCS: 95861; 95886; 95911

== ENCOUNTER → 2022-10-30 | Outpatient (CLI) | payer MEDICARE, SELFPAY ==
[2022-11-01 15:08] LABS: Albumin 3.5 g/dL (2.9-4.4); Alpha-1-Globulins 0.3 g/dL (0.0-0.4); Alpha-2-Globulins 0.7 g/dL (0.4-1.0); Immunoglobulin A 177 mg/dL (64-422); Immunoglobulin G 1325 mg/dL (586-1602); Immunoglobulin M 1096 mg/dL (26-217); PROEL- TOTAL PROTEIN 7.5 g/dL (6.0-8.5)
== END | disposition home or self-care (01) ==
LOC: LAB 10:49
PROVIDERS: PCP Internal Medicine; Referring Provider Psychiatry & Neurology Neurology; Visit Provider Psychiatry & Neurology Neurology
DX: G62.9 Polyneuropathy, unspecified (principal)
CPT/HCPCS: 36415; 82784; 84165; 86334; 86335

== ENCOUNTER → 2023-01-14 | Outpatient (CLI) | payer MEDICARE, SELFPAY ==
--- NOTE | 2023-01-14 10:20 | BI_ITS ---
MAMMOGRAPHY - BILATERAL SCREENING REASON FOR EXAM: Female, 72 years old. Routine annual screening examination. PERTINENT HISTORY: Mother with breast cancer. Aunts with breast cancer. Remote right excisional breast biopsy. TECHNIQUE: Digital bilateral breast hemanth (3D mammographic acquisition) in the CC and MLO projections. 2-D mediolateral oblique (MLO) and craniocaudad (CC) views of both breasts were obtained. CAD: Full Field Digital Mammography with Computer Added Detection was performed. COMPARISON: Comparison is made with prior study January 10, 2022 and January 06, 2021. FINDINGS: Breast Composition: There are scattered areas of fibroglandular density. There are no dominant masses or suspicious calcifications. Residual architectural distortion in the upper slightly lateral aspect of the right breast in keeping with patient''s history of prior biopsy. Stable small benign appearing bilateral axillary lymph nodes. No other significant abnormalities are identified. There has been no significant change since the prior study. BI/SCRN MAMM (CAD)W/HEMANTH BILAT IMPRESSION: Stable bilateral screening mammogram. Yearly follow-up mammogram recommended. (A) ASSESSMENT CATEGORY: BIRADS Category 2: Benign. A letter regarding these results will be sent to the patient by the facility within 30 days. Approximately 10% of breast cancers are not detected by mammography. A normal mammogram should not delay biopsy of a clinically suspicious abnormality. [id number] Electronically Signed: Riccardo Vazquez MD at 11:22 EDT ,
== END | disposition home or self-care (01) ==
LOC: OPBI 10:19
PROVIDERS: PCP Internal Medicine; Referring Provider Internal Medicine; Visit Provider Internal Medicine
DX: Z12.31 Encounter for screening mammogram for malignant neoplasm of breast (principal); Z80.3 Family history of malignant neoplasm of breast
CPT/HCPCS: 77063; 77067

== ENCOUNTER → 2023-01-29 | Outpatient (CLI) | payer MEDICARE, SELFPAY ==
[2023-01-29 09:51] LABS: Absolute Lymphocyte Count 2.63 X10^3/uL (0.83-4.51); Absolute Neutrophil Count 5.5 X10^3/uL (2.0-7.7); Basophil# 0.08 X10^3/uL; Basophil% 0.9 % (0-1); Color, Urine Yellow (Yellow); Glucose, Dipstick Normal (Normal); Hematocrit 35.2 % (37-47); Hemoglobin 11.4 g/dL (12.0-15.0); Ketone-Dipstick Negative (Negative); Leukocyte Esterase-Dipstick 500 /ul (Negative); Lymphocyte # 2.63 X10^3/ul (0.83-4.51); Lymphocyte % 29.7 % (19-41); Mean Corp Hgb Conc 32.4 g/dL (32-36); Mean Corpuscular Volume 95.7 fL (81-99); Mean Platelet Vol. 11.2 fl (6.2-12.0); Monocyte# 0.59 X10^3/uL; Monocyte% 6.7 % (0-10); NRBC Flagged by Analyzer 0 % (0-5); Neutrophil # 5.51 X10^3/uL (2.7-7.7); Neutrophil % 62.2 % (47-70); Nitrite-Dipstick Negative (Negative); Occult Blood-Urine Negative /ul (Negative); Platelet Count 289 K/mm3 (150-450); Protein-Dipstick 30 mg/dl (Negative); RBC Distribution Width CV 14.9 % (11.6-14.6); RBC Distribution Width SD 51.8 fl (35.1-43.9); Red Blood Count 3.68 M/mm3 (4.2-5.4); Specific Gravity, Urine 1.015 (1.002-1.030); Urine Bilirubin Dipstick Negative (Negative); Urine Clarity Clear (Clear); Urine Urobilinogen Normal (Normal); White Blood Count 8.9 K/mm3 (4.4-11.0)
[2023-01-29 10:11] LABS: Microalbumin:Creatinine Ratio 7.9 mg/g CRE (<30 mg/g CRE)
[2023-01-29 11:07] LABS: ALB/GLOB Ratio 0.7 RATIO (0.9-2.4); AST(SGOT) 26 U/L (15-37); Alanine Aminotransfer ALT/SGPT 31 U/L (13-56); Albumin, Serum 3.2 g/dL (3.2-5.0); Alkaline Phosphatase 97 U/L (45-117); Anion Gap 6 (5-15); BUN 17 mg/dL (7-18); BUN/Creat Ratio 16.5 RATIO (10-20); Calcium,Total 8.7 mg/dL (8.5-10.1); Chloride 107 mmol/L (98-107); Cholesterol 183 mg/dL (200); Creatinine, Serum 1.03 mg/dL (0.55-1.02); EST Glomerular Filtration Rate 56 mL/min (>60); Est Glom Filt Rate - Afr Amer 67 mL/min (>60); Globulin 4.7 g/dL (2.2-4.2); Glucose 103 mg/dL (74-106); High Density Lipoprotein 55 mg/dL; Protein, Total 7.9 g/dL (6.4-8.2); Sodium Level 139 mmol/L (136-145); Thyroid Stim Hormone (TSH) 2.64 uIU/mL (0.358-3.74); Triglycerides 136 mg/dL; Very Low Density Lipoprotein 27 mg/dL (5-40)
[2023-01-31 12:09] LABS: Vitamin D 1,25-Dihydroxy 44.5 pg/mL (24.8-81.5)
== END | disposition home or self-care (01) ==
LOC: LAB 09:12
PROVIDERS: PCP Internal Medicine; Referring Provider Internal Medicine; Visit Provider Internal Medicine
DX: E11.9 Type 2 diabetes mellitus without complications (principal); E78.2 Mixed hyperlipidemia; E55.9 Vitamin D deficiency, unspecified
CPT/HCPCS: 36415; 80053; 80061; 81002; 82043; 82570; 82652; 84443; 85025

== ENCOUNTER → 2023-04-11 | Outpatient (CLI) | payer MEDICARE, SELFPAY ==
--- NOTE | 2023-04-11 10:28 | BD_ITS ---
STUDY: DUAL ENERGY X-RAY ABSORPTIOMETRY / DXA REASON FOR EXAM: Female, 72 years old. 627.8Menopausal postmenopausal BONE DENSITY REASON FOR EXAM -- Postmenopausal (Z78.0) TECHNIQUE: Bone Mineral Density (BMD) measurements of lumbar spine and bilateral hips were obtained. COMPARISON: Comparison is made with prior study dated January 08, 2012. FINDINGS: Lumbar Spine (L1-L4): g/cm2 (1.091) / T-score (0.3) / Z-score (2.8) Findings are suggestive of normal bone density with a low fracture risk. Left Femur Total: g/cm2 (0.957) / T-score (0.1) / Z-score (1.9) Left Femoral Neck: g/cm2 (0.683) / T-score (-1.5) / Z-score (0.6) Right Femur Total: g/cm2 (0.939) / T-score (0.0) / Z-score (1.7) Right Femoral Neck: g/cm2 (0.729) / T-score (-1.1) / Z-score (1.0) The T-Scores on the most recent prior examination were: Lumbar Spine (L1-L4): There has been worsening of bone density since the previous examination. Left Femur Total: which represents an improvement of 2%. Right Femur Total: which represents a worsening of 3.4%. BD/Dexa Bone Density Study IMPRESSION: The patient is considered osteopenic as outlined below according to World Nathaniel Organization (WHO) criteria with a moderate fracture risk. There has been worsening of bone density since the previous examination. Reference Information: The T-score is the number of standard deviations above or below the standard which is normal for young adults at their peak bone mineral density. The World Health Organization (WHO) interprets the T-scores as follows: Above -1 Normal bone density Between -1 and -2.5 Osteopenia Equal to / or below -2.5 Osteoporosis As a practical clinical guideline, osteopenia may be graded as follows: Mild -1 through -1.5 Moderate -1.6 through -2.0 Severe -2.1 through -2.4 The Z-score is the number of standard deviations above or below age-matched controls. A Z-score of less than -1.5 would be considered abnormal. References: 1. NIH Osteoporosis and Related Bone Diseases www osteo.org 2. International Society for Clinical Densitometry www iscd.org 3. National Osteoporosis Foundation www nof.org Electronically Signed: Riccardo Vazquez MD at 15:07 EST ,
== END | disposition home or self-care (01) ==
LOC: OPBD 10:22
PROVIDERS: PCP Internal Medicine; Referring Provider Internal Medicine; Visit Provider Internal Medicine
DX: Z78.0 Asymptomatic menopausal state (principal)
CPT/HCPCS: 77080

== ENCOUNTER → 2023-08-12 | Outpatient (CLI) | payer MEDICARE, SELFPAY ==
[2023-08-12 08:16] LABS: Bacteria 0 SEEN /hpf (None Seen); Mucous, Urine 0 SEEN /hpf (<or=2+); Red Blood Cells-Urine 0 SEEN /hpf (0-5)
[2023-08-12 08:40] LABS: Color, Urine Yellow (Yellow); Glucose, Dipstick Normal (Normal); Ketone-Dipstick 5 mg/dl (Negative); Leukocyte Esterase-Dipstick 500 /ul (Negative); Nitrite-Dipstick Negative (Negative); Occult Blood-Urine Negative /ul (Negative); Protein-Dipstick 30 mg/dl (Negative); Urine Clarity Sl. Cloudy (Clear); Urine Urobilinogen 1 mg/dl (Normal)
[2023-08-12 08:42] LABS: Absolute Lymphocyte Count 2.64 X10^3/uL (0.83-4.51); Absolute Neutrophil Count 5.8 X10^3/uL (2.0-7.7); Basophil# 0.08 X10^3/uL; Basophil% 0.9 % (0-1); Hematocrit 35.2 % (37-47); Hemoglobin 11.3 g/dL (12.0-15.0); Lymphocyte # 2.64 X10^3/ul (0.83-4.51); Lymphocyte % 28.5 % (19-41); Mean Corp Hgb Conc 32.1 g/dL (32-36); Mean Corpuscular Hgb 30.5 pg (27.0-32.0); Mean Corpuscular Volume 94.9 fL (81-99); Mean Platelet Vol. 11.2 fl (6.2-12.0); Monocyte# 0.66 X10^3/uL; Monocyte% 7.1 % (0-10); NRBC Flagged by Analyzer 0 % (0-5); Neutrophil # 5.83 X10^3/uL (2.7-7.7); Platelet Count 278 K/mm3 (150-450); RBC Distribution Width CV 14.4 % (11.6-14.6); RBC Distribution Width SD 49.6 fl (35.1-43.9); Red Blood Count 3.71 M/mm3 (4.2-5.4); White Blood Count 9.3 K/mm3 (4.4-11.0)
[2023-08-12 08:48] LABS: Urine Bilirubin Dipstick 1 mg/dL (Negative)
[2023-08-12 08:51] LABS: Hyaline Cast 0-5 SEEN /lpf (0-5); Squamous Epithelial Cells - UA 0-5 SEEN /hpf (5-10); White Blood Cells 0-5 SEEN /hpf (0-5)
[2023-08-12 09:08] LABS: Vitamin D,25 Hydroxy 126.1 ng/mL
[2023-08-12 09:17] LABS: ALB/GLOB Ratio 0.7 RATIO (0.9-2.4); AST(SGOT) 23 U/L (15-37); Alanine Aminotransfer ALT/SGPT 26 U/L (13-56); Albumin, Serum 3.2 g/dL (3.2-5.0); Alkaline Phosphatase 85 U/L (45-117); Anion Gap 6 (5-15); BUN 17 mg/dL (7-18); BUN/Creat Ratio 18.4 RATIO (10-20); Calcium,Total 8.8 mg/dL (8.5-10.1); Chloride 107 mmol/L (98-107); Cholesterol 185 mg/dL (200); Creatinine, Serum 0.92 mg/dL (0.55-1.02); EST Glomerular Filtration Rate 63 mL/min (>60); Est Glom Filt Rate - Afr Amer 76 mL/min (>60); Globulin 4.5 g/dL (2.2-4.2); Glucose 113 mg/dL (74-106); High Density Lipoprotein 61 mg/dL; Potassium 3.8 mmol/L (3.5-5.1); Protein, Total 7.7 g/dL (6.4-8.2); Sodium Level 139 mmol/L (136-145); Thyroid Stim Hormone (TSH) 2.72 uIU/mL (0.358-3.74); Triglycerides 113 mg/dL; Very Low Density Lipoprotein 23 mg/dL (5-40)
[2023-08-12 10:08] LABS: Microalbumin,Random Urine 12.9 mg/L (NO RANGE EST.); Microalbumin:Creatinine Ratio 6.4 mg/g CRE (<30 mg/g CRE)
== END | disposition home or self-care (01) ==
LOC: LAB 08:13
PROVIDERS: PCP Internal Medicine; Referring Provider Internal Medicine; Visit Provider Internal Medicine
DX: E78.2 Mixed hyperlipidemia (principal); E11.9 Type 2 diabetes mellitus without complications; E55.9 Vitamin D deficiency, unspecified
CPT/HCPCS: 36415; 80053; 80061; 81001; 82043; 82306; 82570; 84443; 85025

== ENCOUNTER → 2024-01-16 | Outpatient (CLI) | payer MEDICARE, SELFPAY ==
--- NOTE | 2024-01-16 09:27 | BI_ITS ---
MAMMOGRAPHY - BILATERAL SCREENING REASON FOR EXAM: Female, 73 years old. Routine annual screening examination. PERTINENT HISTORY: Mother with breast cancer. Aunts with breast cancer. TECHNIQUE: Digital bilateral breast hemanth (3D mammographic acquisition) in the CC and MLO projections. 2-D mediolateral oblique (MLO) and craniocaudad (CC) views of both breasts were obtained. CAD: Full Field Digital Mammography with Computer Added Detection was performed. COMPARISON: Comparison is made with prior study January 14, 2023 and January 10, 2022. FINDINGS: Breast Composition: There are scattered areas of fibroglandular density. There are no dominant masses or suspicious calcifications. Stable architectural distortion the upper slightly lateral aspect of the right breast and compared with a patient''s prior history of biopsy. No other significant abnormalities are identified. There has been no significant change since the prior study. BI/SCRN MAMM (CAD)W/HEMANTH BILAT IMPRESSION: Stable bilateral screening mammogram. Yearly follow-up mammogram recommended. (A) ASSESSMENT CATEGORY: BIRADS Category 2: Benign. A letter regarding these results will be sent to the patient by the facility within 30 days. Approximately 10% of breast cancers are not detected by mammography. A normal mammogram should not delay biopsy of a clinically suspicious abnormality. [id number] Electronically Signed: Riccardo Vazquez MD at 10:42 EDT ,
== END | disposition home or self-care (01) ==
LOC: OPBI 09:27
PROVIDERS: PCP Internal Medicine; Referring Provider Internal Medicine; Visit Provider Internal Medicine
DX: Z12.31 Encounter for screening mammogram for malignant neoplasm of breast (principal); Z80.3 Family history of malignant neoplasm of breast
CPT/HCPCS: 77063; 77067

== ENCOUNTER → 2024-05-01 | Outpatient (CLI) | payer MEDICARE, SELFPAY ==
[2024-05-01 09:23] LABS: Absolute Neutrophil Count 4.2 X10^3/uL (2.0-7.7); Basophil% 1.1 % (0-1); Eosinophil# 1.34 X10^3/uL; Eosinophils% 14.3 % (0-5); Hematocrit 33.7 % (37-47); Hemoglobin 10.8 g/dL (12.0-15.0); Lymphocyte % 33.1 % (19-41); Mean Corpuscular Hgb 30.4 pg (27.0-32.0); Mean Corpuscular Volume 94.9 fL (81-99); Mean Platelet Vol. 11.1 fl (6.2-12.0); Monocyte# 0.56 X10^3/uL; NRBC Flagged by Analyzer 0 % (0-5); Neutrophil # 4.18 X10^3/uL (2.7-7.7); Neutrophil % 44.6 % (47-70); POSITIVE MORPHOLOGY YES; Platelet Count 350 K/mm3 (150-450); RBC Distribution Width CV 14.8 % (11.6-14.6); RBC Distribution Width SD 51.6 fl (35.1-43.9); Red Blood Count 3.55 M/mm3 (4.2-5.4); White Blood Count 9.4 K/mm3 (4.4-11.0)
[2024-05-01 09:49] LABS: Color, Urine Yellow (Yellow); Glucose, Dipstick Normal (Normal); Ketone-Dipstick Negative (Negative); Leukocyte Esterase-Dipstick 500 /ul (Negative); Nitrite-Dipstick Negative (Negative); Occult Blood-Urine 10 /ul (Negative); Protein-Dipstick 15 mg/dl (Negative); Specific Gravity, Urine 1.015 (1.002-1.030); Urine Bilirubin Dipstick Negative (Negative); Urine Clarity Sl. Cloudy (Clear); Urine Urobilinogen Normal (Normal)
[2024-05-01 09:50] LABS: Differential Indicated SCAN CRITERIA MET
[2024-05-01 10:07] LABS: ALB/GLOB Ratio 0.7 RATIO (0.9-2.4); AST(SGOT) 23 U/L (15-37); Alanine Aminotransfer ALT/SGPT 20 U/L (13-56); Albumin, Serum 3.2 g/dL (3.2-5.0); Alkaline Phosphatase 90 U/L (45-117); Anion Gap 6 (5-15); BUN 18 mg/dL (7-18); Calcium,Total 9.4 mg/dL (8.5-10.1); Chloride 107 mmol/L (98-107); Cholesterol 197 mg/dL (200); Creatinine, Serum 0.95 mg/dL (0.55-1.02); EST Glomerular Filtration Rate 61 mL/min (>60); Est Glom Filt Rate - Afr Amer 74 mL/min (>60); Globulin 4.8 g/dL (2.2-4.2); Glucose 107 mg/dL (74-106); High Density Lipoprotein 68 mg/dL; Potassium 3.9 mmol/L (3.5-5.1); Sodium Level 138 mmol/L (136-145); Triglycerides 146 mg/dL; Very Low Density Lipoprotein 29 mg/dL (5-40)
[2024-05-01 11:09] LABS: Microalbumin,Random Urine 8.2 mg/L (NO RANGE EST.); Microalbumin:Creatinine Ratio 7.1 mg/g CRE (<30 mg/g CRE)
== END | disposition home or self-care (01) ==
LOC: LAB 08:15
PROVIDERS: PCP Internal Medicine; Referring Provider Internal Medicine; Visit Provider Internal Medicine
DX: E11.9 Type 2 diabetes mellitus without complications (principal); Z78.0 Asymptomatic menopausal state; R94.6 Abnormal results of thyroid function studies
CPT/HCPCS: 36415; 80053; 80061; 81002; 82043; 82570; 82652; 84443; 85025

== ENCOUNTER → 2024-06-16 | Outpatient (CLI) | payer MEDICARE, SELFPAY ==
[2024-06-16 08:59] LABS: Absolute Lymphocyte Count 2.98 X10^3/uL (0.83-4.51); Absolute Neutrophil Count 4.4 X10^3/uL (2.0-7.7); Basophil# 0.08 X10^3/uL; Hematocrit 35.1 % (37-47); Hemoglobin 11.5 g/dL (12.0-15.0); Lymphocyte # 2.98 X10^3/ul (0.83-4.51); Lymphocyte % 36.7 % (19-41); Mean Corp Hgb Conc 32.8 g/dL (32-36); Mean Corpuscular Hgb 30.7 pg (27.0-32.0); Mean Corpuscular Volume 93.9 fL (81-99); Mean Platelet Vol. 10.8 fl (6.2-12.0); Monocyte# 0.57 X10^3/uL; NRBC Flagged by Analyzer 0 % (0-5); Neutrophil # 4.43 X10^3/uL (2.7-7.7); Neutrophil % 54.4 % (47-70); Platelet Count 302 K/mm3 (150-450); RBC Distribution Width CV 14.7 % (11.6-14.6); RBC Distribution Width SD 50.8 fl (35.1-43.9); Red Blood Count 3.74 M/mm3 (4.2-5.4); White Blood Count 8.1 K/mm3 (4.4-11.0)
[2024-06-16 09:49] LABS: Free T3 3.2 pg/mL (2.18-3.98)
== END | disposition home or self-care (01) ==
LOC: LAB 08:38
PROVIDERS: PCP Internal Medicine; Referring Provider Internal Medicine; Visit Provider Internal Medicine
DX: D64.9 Anemia, unspecified (principal); R79.89 Other specified abnormal findings of blood chemistry; R73.09 Other abnormal glucose
CPT/HCPCS: 36415; 84439; 84443; 84481; 85025

== ENCOUNTER → 2024-12-01 | Outpatient (CLI) | payer MEDICARE, SELFPAY ==
[2024-12-01 07:39] LABS: Mucous, Urine 0 SEEN /hpf (<or=2+)
[2024-12-01 08:47] LABS: Hematocrit 34.1 % (37-47); Hemoglobin 11.3 g/dL (12.0-15.0); Immature Granulocytes Count 0.080 X10^3/uL (0.0-0.0); Mean Corp Hgb Conc 33.1 g/dL (32-36); Mean Corpuscular Volume 94.2 fL (81-99); Mean Platelet Vol. 11.5 fl (6.2-12.0); NRBC Flagged by Analyzer 0 % (0-5); Platelet Count 311 K/mm3 (150-450); RBC Distribution Width CV 14.9 % (11.6-14.6); RBC Distribution Width SD 51.7 fl (35.1-43.9); Red Blood Count 3.62 M/mm3 (4.2-5.4); White Blood Count 9.2 K/mm3 (4.4-11.0)
[2024-12-01 09:01] LABS: Color, Urine Yellow (Yellow); Glucose, Dipstick Normal (Normal); Ketone-Dipstick Negative (Negative); Leukocyte Esterase-Dipstick 500 /ul (Negative); Nitrite-Dipstick Negative (Negative); Occult Blood-Urine 10 /ul (Negative); Protein-Dipstick 30 mg/dl (Negative); Specific Gravity, Urine 1.020 (1.002-1.030); Urine Bilirubin Dipstick 1 mg/dL (Negative)
[2024-12-01 09:32] LABS: Red Blood Cells-Urine 0-5 SEEN /hpf (0-5); Squamous Epithelial Cells - UA 5-10 SEEN /hpf (5-10)
[2024-12-01 09:51] LABS: Creatinine, Urine (random) 234.00 mg/dL (28.00-217.00); Microalbumin,Random Urine 16.5 mg/L (<20 mg/L)
[2024-12-01 09:54] LABS: AST(SGOT) 29 U/L (<=31); Alanine Aminotransfer ALT/SGPT 27 U/L (<=34); Albumin, Serum 4.0 g/dL (3.4-4.8); Alkaline Phosphatase 76 U/L (35-104); Anion Gap 14 (5-15); BUN 20 mg/dL (4-19); BUN/Creat Ratio 21.1 RATIO (10-20); Calcium,Total 9.4 mg/dL (7.6-11.0); Carbon Dioxide 22.8 mmol/L (21.0-32.0); Chloride 103 mmol/L (98-108); Cholesterol 196 mg/dL (<=200); Globulin 3.6 g/dL (2.2-4.2); Glucose 104 mg/dL (70-99); Low Density Lipoprotein Calc. 106 mg/dL; Potassium 3.9 mmol/L (3.3-5.1); Triglycerides 129 mg/dL; Very Low Density Lipoprotein 26 mg/dL (5-40); cholesterol:hdl ratio screen 3.05
[2024-12-01 10:23] LABS: Vitamin D,25 Hydroxy 156.0 ng/mL (30-100)
== END | disposition home or self-care (01) ==
LOC: LAB 07:36
PROVIDERS: PCP Internal Medicine; Referring Provider Internal Medicine; Visit Provider Internal Medicine
DX: E78.2 Mixed hyperlipidemia (principal); E55.9 Vitamin D deficiency, unspecified; R73.09 Other abnormal glucose
CPT/HCPCS: 36415; 80053; 80061; 81001; 82043; 82306; 82570; 85025

== ENCOUNTER → 2025-01-19 | Outpatient (CLI) | payer MEDICARE, SELFPAY ==
--- NOTE | 2025-01-19 10:30 | BI_ITS ---
EXAM: SCRN MAMM (CAD)W/HEMANTH BILAT DATE: 01/19/2025 CLINICAL HISTORY: F, Age 74 y/o , SCRN MAMM (CAD)W/HEMANTH BILAT Mother with breast cancer. Aunt with breast cancer. History of prior right excisional biopsy. TECHNIQUE: Procedure Code: [id number] Modality: MG Procedure: SCRN MAMM (CAD)W/HEMANTH BILAT COMPARISON: Prior exam(s) dated January 16, 2024.. FINDINGS: TISSUE DENSITY: There are scattered areas of fibroglandular density. Bilateral Breast Mammographic Findings: No significant masses, calcifications or other abnormalities are identified. Stable subtle architectural distortion in the deep upper lateral aspect of the right breast in keeping with prior biopsy. Stable fat containing bilateral axillary lymph nodes. No suspicious masses, areas of developing architectural distortion, or suspicious calcifications. There has been no significant interval change. BI/SCRN MAMM (CAD)W/HEMANTH BILAT IMPRESSION: Stable bilateral screening mammogram. OVERALL FINAL ASSESSMENT BI-RADS 2: BENIGN RECOMMENDATION: Routine annual follow-up in 1 Year Additional Recommendation none A letter with findings and recommendations will be mailed to the patient. Reading Location: [facility]
== END | disposition home or self-care (01) ==
LOC: OPBI 10:25
PROVIDERS: PCP Internal Medicine; Referring Provider Internal Medicine; Visit Provider Internal Medicine
DX: Z12.31 Encounter for screening mammogram for malignant neoplasm of breast (principal)
CPT/HCPCS: 77063; 77067